=== PATIENT | female | born 1975 | race Caucasian/White ===

== ENCOUNTER 2024-06-24 12:37 | Emergency (ER) | payer OTHER ==
--- NOTE | 2024-06-24 14:26 | RAD REPORT ---
EXAM: Chest Single View HISTORY: CHEST PAIN COMPARISON: None. FINDINGS: LUNGS/PLEURA: The lungs are clear. No pleural effusions or pneumothorax. No pulmonary edema. MEDIASTINUM: The mediastinal silhouette is within normal limits. CARDIAC: The cardiac silhouette is within normal limits. UPPER ABDOMEN: Lucency underneath the right hemidiaphragm concerning for pneumoperitoneum. BONES: No acute abnormality. LINES/TUBES/OTHER: N/A IMPRESSION: No evidence of acute cardiopulmonary disease. Findings suspicious for pneumoperitoneum beneath right hemidiaphragm. Consider CT abdomen/pelvis for further evaluation. The patient reportedly had a hysterectomy one day prior and this may be post-surgical. THIS REPORT CONTAINS FINDINGS THAT MAY BE CRITICAL TO PATIENT CARE. The emergent findings were commun icated to Dr. Tate on 06/24/2024 2:23 PM.
[2024-06-24] MEDS ORDERED: DIAZEPAM 5 MG TABLET ONE (14:55)
[2024-06-24] MEDS ORDERED: NA CHLORIDE 0.9% 500 ML ONE ×2 (14:55→15:30)
[2024-06-24] MEDS ORDERED: ONDANSETRON 4 MG/2 ML VIAL ONE (14:55)
[2024-06-24] MEDS ORDERED: MORPHINE 4 MG/ML SYR ONE (14:55)
[2024-06-24 15:01] LABS: Absolute Basophils 0.1 K/uL (0-0.5); Absolute Lymphocytes (CBC) 1.9 K/uL (0.7-4.9); Absolute Monocytes 0.9 K/uL (0.1-1.3); Absolute Neutrophil 7.4 K/uL (1.8-8.0); Basophils % 0.7 % (0-1.3); Eosinophils % 0.3 % (0-4.4); Hematocrit 39.4 % (36.0-45.0); Hemoglobin 13.4 g/dL (12.0-15.0); Lymphocytes % 18.5 % (15.3-44.8); MCH 29.9 pg (27.0-35.0); MCHC 34.1 g/dL (32.0-36.0); MCV 87.6 fL (80-100); MPV 7.6 fL (7.6-11.3); Monocytes % 8.4 % (3.3-12.3); Neutrophils % 72.1 % (41.7-73.7); Platelets 265 thou/uL (152-406); RBC Red Blood Cell Count 4.49 M/uL (3.86-4.86); Red Cell Distribution Width 14.6 % (12.1-15.2)
[2024-06-24 15:20] LABS: Albumin 2.9 g/dL (3.4-5.0); Albumin/Globulin Ratio 0.7 (1.1-1.8); Anion Gap 7.9 mEq/L (5.0-15.0); Bilirubin Total 1.7 mg/dL (0.2-1.0); Globulin 3.9 g/dL (2.3-3.5); Potassium 3.9 mEq/L (3.5-5.1); Protein, Total 6.8 g/dL (6.4-8.2)
--- NOTE | 2024-06-24 15:53 | RAD REPORT ---
EXAMINATION: CTA CHEST PE CLINICAL INDICATION: Female, 48 years old. Chest pain;Dyspnea TECHNIQUE: This examination was performed according to an angiographic protocol with 3D post-processi ng. This involves 3D reconstructions, MIPs, volume rendered images and/or shaded surface rendering. One or more of the following dose reduction techniques were used: Automated exposure control, adjustm ent of the mA and/or kV according to patient size, and/or iterative reconstruction. Unless otherwise specified, incidental findings do not require dedicated imaging follow-up. [id number]. COMPARISON: No priors. FINDINGS: LOWER NECK: Visualized thyroid gland and soft tissues are normal. LUNGS AND AIRWAYS: Mild airspace disease in the lung bases probably representing atelectasis.Centrilo bular and paraseptal emphysema. PLEURA: No pleural effusion. No pneumothorax. Hemidiaphragms are normally positioned. MEDIASTINUM AND LYMPH NODES: No mediastinal mass or fluid collection. Normal size mediastinal, hilar, and axillary lymph nodes. THORACIC AORTA: No thoracic aortic aneurysm. PULMONARY ARTERIES: Caliber is within normal limits. No pulmonary emboli identified. HEART: Normal heart size. Coronary arterial calcifications are present.No significant pericardial eff usion. OSSEOUS STRUCTURES AND CHEST WALL: No fracture or suspicious osseous lesions. UPPER ABDOMEN: See separate report IMPRESSION: No evidence of pulmonary emboli. . Linear opacities in the lung bases likely reflecting atelectasis. Coronary calcifications in the LAD.
--- NOTE | 2024-06-24 15:58 | RAD REPORT ---
EXAMINATION: CT ABDOMEN AND PELVIS WITH CONTRAST CLINICAL INDICATION: Female, 48 years old.sp hyst 06/23/24;Abd pain TECHNIQUE: CT abdomen and pelvis was performed, after the administration of IV contrast, as per depar tment protocol. Axial, sagittal and coronal reconstructions were obtained. One or more of the following dose reduction techniques were used: Automated exposure control, adjustment of the mA and/o r kV according to patient size, and/or iterative reconstruction. Unless otherwise specified, incidental findings do not require dedicated imaging follow-up. [id number]. COMPARISON: No prior exam. FINDINGS: LOWER CHEST: See separate report. UPPER GI: No significant abnormality. LIVER: Hepatic steatosis, but otherwise unremarkable. GALLBLADDER/BILE DUCTS: Cholecystectomy. Intra and extra hepatic biliary duct dilatation may be relat ed to the postcholecystectomy state.? PANCREAS: No mass, ductal dilation, or aric-pancreatic fluid. SPLEEN: Unremarkable. ADRENALS: No adrenal masses. KIDNEYS AND URETERS: No hydronephrosis.No suspicious renal mass. ABDOMINAL AORTA AND OTHER VESSELS: Normal caliber aorta and IVC. PERITONEUM: Mild pelvic free fluid with some enhancement noted. No discrete abscess identified. Pneum operitoneum is present. LYMPH NODES: No pathologic lymphadenopathy. ABDOMINAL WALL: Gas within the abdominal wall likely post surgical. SMALL BOWEL/COLON: Nonspecific fluid present within the small bowel.Nonvisualized appendix. URINARY BLADDER: Underdistended but grossly unremarkable. REPRODUCTIVE ORGANS: Surgically absent uterus. MUSCULOSKELETAL: No acute or suspicious osseous abnormality. ADDITIONAL FINDINGS: None. IMPRESSION: Pneumoperitoneum and pelvic free fluid present. Some peritoneal enhancement is noted likely reflectin g mild peritonitis but no abscess identified at this time. Findings are not entirely unexpected given the patient's given clinical history of laparoscopic hysterectomy on the previous day.
[2024-06-24 16:37] LABS: Sqamous Epithelial <5 /HPF (None Seen); Urine Bacteria None Seen /HPF (<20); Urine Bilirubin NEGATIVE (Negative); Urine Blood Trace (Negative); Urine Clarity Clear (Clear); Urine Color Light-Yellow (Yellow); Urine Culture Reflex Order NOT NEEDED; Urine Glucose NEGATIVE (Negative); Urine Ketones NEGATIVE (Negative); Urine Microscopic Reflex YN ORDER UMIC; Urine Mucus Slight /HPF (None Seen); Urine Nitrite NEGATIVE (Negative); Urine Protein NEGATIVE (Negative); Urine RBC <5 /HPF (None Seen); Urine Urobilinogen Normal (Normal); Urine WBC <5 /HPF (<5); Urine Yeast (Budding) Trace /HPF (None Seen)
[2024-06-24 16:45] LABS: Specific Gravity > 1.030 (1.005-1.030)
--- NOTE | 2024-06-24 17:02 | ER ---
Nurse's Notes [facility] Name: Ariana Delatorre Age: 48 yrs Sex: Female : 1975 Arrival Date: 06/24/2024 Time: 12:37 Bed 13 Private MD: Diagnosis: Other acute postprocedural pain Presentation: 06/24 13:08 Chief complaint: Patient states: s/p hysterectomy yesterday, unable to get pain meds ss due to everything being closed. Pain to abd 03/13. Coronavirus screen: At this time, the client does not indicate any symptoms associated with coronavirus-19. Ebola Screen: No symptoms or risks identified at this time. Initial Sepsis Screen: Does the patient meet any 2 criteria? No. Patient's initial sepsis screen is negative. Does the patient have a suspected source of infection? No. Patient's initial sepsis screen is negative. Risk Assessment: Do you want to hurt yourself or someone else? Patient reports no desire to harm self or others. Onset of symptoms was June 23, 2024. 13:08 Method Of Arrival: Ambulatory ss 13:08 Acuity: DEA 3 ss Triage Assessment: 13:16 General: Appears uncomfortable, well groomed, well developed, well nourished, Behavior ss is calm, cooperative, appropriate for age. Pain: Complains of pain in abdomen Pain does not radiate. Pain currently is 10 out of 10 on a pain scale. Quality of pain is described as sharp, Pain began suddenly, Is continuous. EENT: No signs and/or symptoms were reported regarding the EENT system. Neuro: Level of Consciousness is awake, alert, obeys commands, Oriented to person, place, time, situation, Appropriate for age. Cardiovascular: Patient's skin is warm and dry. Respiratory: Airway is patent Respiratory effort is even, unlabored, Respiratory pattern is regular, symmetrical. GI: Reports lower abdominal pain, upper abdominal pain. : No signs and/or symptoms were reported regarding the genitourinary system. Derm: Skin is intact, is healthy with good turgor, Skin is pink, warm \T\ dry. Musculoskeletal: No deficits noted. 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 - Infectious Disease History:: Denies. - Social history:: Smoking status: Patient reports the use of cigarette tobacco products, denies chronic smoking, but will smoke occasionally, Reported history of juuling and/or vaping. - Family history:: not pertinent. Screenin:18 [facility] ED Fall Risk Assessment (Adult) History of falling in the last 3 months, ss including since admission No falls in past 3 months (0 pts) Confusion or Disorientation No (0 pts) Intoxicated or Sedated No (0 pts) Impaired Gait No (0 pts) Mobility Assist Device Used No (0 pt) Altered Elimination No (0 pt) Score/Fall Risk Level 0 - 2 = Low Risk Maintained a safe environment, Provided non-skid footwear, Hourly rounding (assess needs \T\ fall precautionary measures) done. Abuse screen: Denies threats or abuse. Nutritional screening: No deficits noted. Tuberculosis screening: No symptoms or risk factors identified. Assessment: 13:18 General: See triage assessment.. ss Vital Signs: 13:08 BP 126 / 79; Pulse 66; Resp 16; Temp 98.4; Pulse Ox 96% ; Weight 54.43 kg; Height 5 ft. ss 2 in. ; Pain 10/10; 14:00 BP 123 / 81; Pulse 72; Resp 16; Pulse Ox 99% ; ss 15:00 BP 126 / 87; Pulse 73; Resp 14; Pulse Ox 99% ; ss 16:00 BP 116 / 81; Pulse 73; Resp 6; Pulse Ox 98% ; ss 17:00 BP 113 / 77; Pulse 69; Resp 16; Temp 98.4; Pulse Ox 97% ; ss 13:08 Body Mass Index 21.95 (54.43 kg, 157.48 cm) ss 13:08 Pain Scale: Adult ED Course: 12:40 Patient arrived in ED. mr 12:41 Germain Tate MD is Attending Physician. driss 13:06 Maryann Hansen, CORNELIA is Primary Nurse. ss 13:11 Triage completed. ss 13:16 Arm band placed on Patient placed in an exam room. ss 13:18 Patient has correct armband on for positive identification. Bed in low position. Call ss light in reach. Side rails up X2. Provided Education on: POC. Verbalized understanding.. Client placed on continuous cardiac and pulse oximetry monitoring. NIBP monitoring applied. Pulse ox on. NIBP on. 13:18 No provider procedures requiring assistance completed. ss 14:15 Chest Single View XRAY In Process Unspecified. EDMS 14:37 Radiology exam delayed due to lab results not completed at this time. (BUN/Creatinine). nj 14:37 Radiology exam delayed due to IV insertion attempt and/or patient not having nj appropriate IV at this time. 14:53 Accessed peripheral vein via ultrasound, utilizing dynamic ultrasound technique Blood cm10 collected. Clean \T\ dry. Dressing intact. Good blood return. Flushes easily. 20G left FA. 15:41 CT Abd/Pelvis - IV Contrast Only In Process Unspecified. EDMS 15:42 CT Chest For PE Angio In Process Unspecified. EDMS 16:13 Urinalysis w/ reflexes Sent. ss 16:13 Urine collected: clean catch specimen, clear, Amount Voided: 250mL. ss 17:01 Sandra Montenegro MD is Referral Physician. driss 17:37 IV discontinued, intact, bleeding controlled, No redness/swelling at site. Pressure ss dressing applied. Administered Medications: 15:04 Drug: NS 0.9% IV 500 ml 500 ml IV at 1 bolus once; to be given as a bolus over 30 ss minutes Volume: 500 ml; Route: IV; Rate: 1 bolus; Site: left forearm; 15:32 Follow up: Response: No adverse reaction; IV Status: Completed infusion; IV Intake: ss 500ml 15:04 Drug: morphine IVP or IV 4 mg IVP once over 4 mins Route: IVP; Infused Over: 4 mins; Site: left forearm; 15:28 Follow up: Response: No adverse reaction; Pain is decreased ss 15:04 Drug: Ondansetron IVP 4 mg IVP once; over 2 minutes Route: IVP; Site: left forearm; ss 15:28 Follow up: Response: No adverse reaction; Nausea is decreased ss 15:04 Drug: Diazepam PO 10 mg PO once Route: PO; ss 15:33 Follow up: Response: No adverse reaction; Pain is decreased ss 15:32 Drug: NS 0.9% IV 500 ml 500 ml IV at 1 bolus once; to be given as a bolus over 30 ss minutes Volume: 500 ml; Route: IV; Rate: 1 bolus; Site: left forearm; 17:26 Follow up: Response: No adverse reaction; IV Status: Completed infusion; IV Intake: ss 500ml Medication: 13:18 VIS not applicable for this client. ss Intake: 15:32 IV: 500ml; Total: 500ml. ss 17:26 IV: 500ml; Total: 1000ml. ss Outcome: 17:01 Discharge ordered by . driss 17:37 Discharged to home ambulatory, 17:37 Condition: stable 17:37 Discharge instructions given to patient, significant other, Instructed on discharge instructions, follow up and referral plans. medication usage, Demonstrated understanding of instructions, follow-up care, medications, Prescriptions given X 1, 17:37 Patient left the ED. Signatures: Dispatcher [employer] EDMS Germain Tate MD MD cha Rivera, Mary, Reg Reg Maryann Hansen, RN RN ss Satya Armstrong Clarissa RN RN cm10
--- NOTE | 2024-06-24 17:02 | EDPHYS ---
Physician Documentation [facility] Name: Ariana Delatorre Age: 48 yrs Sex: Female : 1975 Arrival Date: 06/24/2024 Time: 12:37 Bed 13 Private MD: KEYANA Physician Germain Tate HPI: 06/24 13:49 This 48 yrs old Female presents to ER via Ambulatory with complaints of Post driss Surgical Pain. 13:49 The patient presents with abdominal pain in the upper abdomen, in the lower abdomen. driss Onset: The symptoms/episode began/occurred 2 day(s) ago. The patient presents with post op pain. Onset: The symptoms/episode began/occurred yesterday. Modifying factors: The symptoms are alleviated by nothing, the symptoms are aggravated by nothing. Associated signs and symptoms: The patient has no apparent associated signs or symptoms. Severity of symptoms: At their worst the symptoms were moderate, in the emergency department the symptoms are unchanged. had hyst yesterday , no pain meds. Onset: The symptoms/episode began/occurred yesterday. Severity of pain: At its worst the pain was moderate in the emergency department the pain is unchanged. 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 - Infectious Disease History:: Denies. - Social history:: Smoking status: Patient reports the use of cigarette tobacco products, denies chronic smoking, but will smoke occasionally, Reported history of juuling and/or vaping. - Family history:: not pertinent. ROS: 13:49 Constitutional: Negative for fever, chills, and weight loss, Eyes: Negative for injury, driss pain, redness, and discharge, ENT: Negative for injury, pain, and discharge, Neck: Negative for injury, pain, and swelling, Cardiovascular: Negative for chest pain, palpitations, and edema, Respiratory: Negative for shortness of breath, cough, wheezing, and pleuritic chest pain, Back: Negative for injury and pain, : Negative for injury, bleeding, discharge, and swelling, MS/Extremity: Negative for injury and deformity, Skin: Negative for injury, rash, and discoloration, Neuro: Negative for headache, weakness, numbness, tingling, and seizure, Psych: Negative for depression, anxiety, suicide ideation, homicidal ideation, and hallucinations, Allergy/Immunology: Negative for hives, rash, and allergies, Endocrine: Negative for neck swelling, polydipsia, polyuria, polyphagia, and marked weight changes, Hematologic/Lymphatic: Negative for swollen nodes, abnormal bleeding, and unusual bruising, 13:49 Abdomen/GI: Positive for abdominal pain, of the right lower quadrant and left lower quadrant, Exam: 13:49 Constitutional: This is a well developed, well nourished patient who is awake, alert, driss and in no acute distress. Head/Face: Normocephalic, atraumatic. Eyes: Pupils equal round and reactive to light, extra-ocular motions intact. Lids and lashes normal. Conjunctiva and sclera are non-icteric and not injected. Cornea within normal limits. Periorbital areas with no swelling, redness, or edema. ENT: Nares patent. No nasal discharge, no septal abnormalities noted. Tympanic membranes are normal and external auditory canals are clear. Oropharynx with no redness, swelling, or masses, exudates, or evidence of obstruction, uvula midline. Mucous membranes moist. Neck: Trachea midline, no thyromegaly or masses palpated, and no cervical lymphadenopathy. Supple, full range of motion without nuchal rigidity, or vertebral point tenderness. No Meningismus. Chest/axilla: Normal chest wall appearance and motion. Nontender with no deformity. No lesions are appreciated. Cardiovascular: Regular rate and rhythm with a normal S1 and S2. No gallops, murmurs, or rubs. Normal PMI, no JVD. No pulse deficits. Respiratory: Lungs have equal breath sounds bilaterally, clear to auscultation and percussion. No rales, rhonchi or wheezes noted. No increased work of breathing, no retractions or nasal flaring. Back: No spinal tenderness. No costovertebral tenderness. Full range of motion. Skin: Warm, dry with normal turgor. Normal color with no rashes, no lesions, and no evidence of cellulitis. MS/ Extremity: Pulses equal, no cyanosis. Neurovascular intact. Full, normal range of motion., bilateral aka Neuro: Awake and alert, GCS 15, oriented to person, place, time, and situation. Cranial nerves II-XII grossly intact. Motor strength 5/5 in all extremities. Sensory grossly intact. Cerebellar exam normal. Normal gait. Psych: Awake, alert, with orientation to person, place and time. Behavior, mood, and affect are within normal limits. 13:49 Abdomen/GI: Inspection: abdomen appears normal, Bowel sounds: normal, Palpation: moderate abdominal tenderness, in the right lower quadrant and left lower quadrant, Liver: no appreciated palpable abnormalities, Hernia: not appreciated, Vital Signs: 13:08 BP 126 / 79; Pulse 66; Resp 16; Temp 98.4; Pulse Ox 96% ; Weight 54.43 kg; Height 5 ft. ss 2 in. ; Pain 10/10; 14:00 BP 123 / 81; Pulse 72; Resp 16; Pulse Ox 99% ; ss 15:00 BP 126 / 87; Pulse 73; Resp 14; Pulse Ox 99% ; ss 16:00 BP 116 / 81; Pulse 73; Resp 6; Pulse Ox 98% ; ss 17:00 BP 113 / 77; Pulse 69; Resp 16; Temp 98.4; Pulse Ox 97% ; ss 13:08 Body Mass Index 21.95 (54.43 kg, 157.48 cm) ss 13:08 Pain Scale: Adult ss MDM: 12:41 Medical Screening Exam initiated driss 13:52 Differential Diagnosis sepsis. Data reviewed: vital signs, nurses notes, lab test [facility] result(s). Consideration of Admission/Observation Escalation of care including admission/observation considered. I considered the following discharge prescriptions or medication management in the emergency department Medications were administered in the Emergency Department. See MAR. Test considered but Not performed: CT: no ct scan. Historians other than the Patient: Spouse/Significant Other: well informed. Care significantly affected by the following chronic conditions: none. Counseling: I had a detailed discussion with the patient and/or guardian regarding the historical points, exam findings, and any diagnostic results supporting the discharge/admit diagnosis, lab results, radiology results, the need for outpatient follow up, for definitive care, an OB/Gyne specialist. 06/24 13:49 Order name: CBC with Diff; Complete Time: 15:16 [facility] 06/24 13:49 Order name: CMP; Complete Time: 17: [facility] 06/24 13:49 Order name: Urinalysis w/ reflexes; Complete Time: 17:01 [facility] 06/24 13:49 Order name: Chest Single View XRAY; Complete Time: 15:16 [facility] 06/24 14:24 Order name: CT Abd/Pelvis - IV Contrast Only; Complete Time: 17: [facility] 06/24 14:37 Order name: CT Chest For PE Angio; Complete Time: 17:01 [facility] Administered Medications: 15:04 Drug: NS 0.9% IV 500 ml 500 ml IV at 1 bolus once; to be given as a bolus over 30 ss minutes Volume: 500 ml; Route: IV; Rate: 1 bolus; Site: left forearm; 15:32 Follow up: Response: No adverse reaction; IV Status: Completed infusion; IV Intake: ss 500ml 15:04 Drug: morphine IVP or IV 4 mg IVP once over 4 mins Route: IVP; Infused Over: 4 mins; ss Site: left forearm; 15:28 Follow up: Response: No adverse reaction; Pain is decreased ss 15:04 Drug: Ondansetron IVP 4 mg IVP once; over 2 minutes Route: IVP; Site: left forearm; ss 15:28 Follow up: Response: No adverse reaction; Nausea is decreased ss 15:04 Drug: Diazepam PO 10 mg PO once Route: PO; ss 15:33 Follow up: Response: No adverse reaction; Pain is decreased ss 15:32 Drug: NS 0.9% IV 500 ml 500 ml IV at 1 bolus once; to be given as a bolus over 30 ss minutes Volume: 500 ml; Route: IV; Rate: 1 bolus; Site: left forearm; 17:26 Follow up: Response: No adverse reaction; IV Status: Completed infusion; IV Intake: ss 500ml Disposition Summary: 06/24/24 17:01 Discharge Ordered Notes: Location: Home driss Problem: new driss Symptoms: have improved driss Condition: Stable driss Diagnosis - Other acute postprocedural pain driss Followup: driss - With: Private Physician - When: Tomorrow - Reason: Recheck today's complaints, Continuance of care, Re-evaluation by your physician Followup: driss - With: Sandra Montenegro MD - When: Tomorrow - Reason: Recheck today's complaints, Continuance of care, Re-evaluation by your physician Discharge Instructions: - Discharge Summary Sheet driss - Pain Medicine Instructions, Cpth-me-Xudy driss Forms: - Medication Reconciliation Form driss - Antibiotic Education driss - Prescription Opioid Use driss - Patient Portal Instructions driss - Leadership Thank You Letter driss Prescriptions: - acetaminophen-codeine 300-30 mg Oral tablet - take 2 tablet ORAL route every 6 hours as needed for pain; 8 tablet; Refills: [facility] 0, Product Selection Permitted Signatures: Dispatcher [employer] EDMS Germain Tate MD MD cha Blanchard, Shelby, RN RN ss Corrections: (The following items were deleted from the chart) 13:49 13:49 Chest Single View+RAD.RAD.BRZ ordered. EDMS EDMS 13:49 13:49 IS+RC.RAD.BRZ ordered. EDMS EDMS
[2024-06-24 18:29] VITALS: TEMP 98.4
[2024-06-24 18:34] VITALS: BP 113/77; O2SAT 97
== END 2024-06-24 17:37 | disposition home or self-care (01) ==
LOC: ER 12:37
DX: G89.18 Other acute postprocedural pain (principal); F17.210 Nicotine dependence, cigarettes, uncomplicated; Z90.710 Acquired absence of both cervix and uterus
CPT/HCPCS: 96361; 85025; 81001; 36415; 80053; 71275; 74177; 71045; 96375; 96374; 99285; Q9967; J2405; J7040 ×2

== ENCOUNTER 2025-01-09 08:27 | Emergency (ER) | payer OTHER ==
--- OUTSIDE RECORDS SUMMARY | 2025-01-09 08:38 | XMS REPORT | Continuity of Care Document ---
Author Name Unknown Address [address] [facility] [place] [address] [facility] Address [address] [facility] [place] [address] Care Team Providers Care Emergency Medicine Specialist Name Role Phone AKIL MENDEZ Primary Care Physician Unavailab AKIL Marquez Attending Clinician Unavailable SERJIO ANDINO Attending Clinician Unavailable SERJIO ANDINO Attending Clinician Unavailable MD JASON Attending Clinician Unavailab KAYLAH Jason Attending Clinician Unavailable BEBE SOTELO Attending Clinician Unavailable GUSTABO APOADCA Attending Clinician Unavailable Doctor Unassigned, Moraida Attending Clinician U navailable RADHA FERNANDEZ Attending Clinician Unavailab YULY Ramires Attending Clinician Unav YULY Bustos Attending Clinician UnaTYREE Cerda Attending Clinician Unavailabl KVNG Locke Attending Clinician Unav ailable JAQUI NORRIS Attending Clinician Unavailable Jaqui Norris NP Attending Clinician Suma Rosario Attending Clinician Unavailab Saulo Reyes Attending Clinician Unavaila ble LAB90 Attending Clinician Unavailable Levon Hurley Attending Clinician Unavailable Yuly Saucedo MD Attending Clinician + Paresh Lyman Attending Clinician [phone] DANDRE JOHANSEN Attending Clinician Unavailable RADIOLOGY Attending Clinician Unavailable SAULO MONTENEGRO Attending Clinician Unavailcathy e PARESH CURIEL Attending Clinician Unavailable Sherri Hall RN Attending Clinician Unavailable Lab, Ang - Db Attending Clinician Unavailable ANA CRISTINA RAYMOND Attending Clinician Unavailable Ana Cristina Hoang Attending Clinician [phone] [phone], Patient Does Not Have A Attending Clinician JONA GRANADOS Attending Clinician Unavailable JONA GRANADOS Attending Clinician Unavailable Jona Miller Attending Clinician [phone] David Swanson Attending Clinician [phone] CAREN JOHNSTON Attending Clinician Unavailable CAREN JOHNSTON Attending Clinician Unavailable Caren Mulligan Attending Clinician [phone] ALIN WYATT Attending Clinician Unavailable Beba Crespo RN Attending Clinician [phone] Doctor Unassigned, Moraida Attending Clinician U roeailRICH Kim Attending Clinician Unavailable RICH MONTILLA Attending Clinician Unavailable LEE JETT Attending Clinician Unavailable Yesenia Ogden Attending Clinician [phone] YESENIA KENDRICK Attending Clinician Unavailable [email or web address] Attending Clinician Unavailsal Joy Attending Clinician Unavailable DR JOSE L REYNOLDS Attending Clinician Unava ilable YULY SAUCEDO Admitting Clinician Unav ailable JAQUI NORRIS Admitting Clinician Unavailable Akil Mendez Admitting Clinician Unavailable Saulo Montenegro Admitting Clinician Unavaila Levon Vaughn Admitting Clinician Unavailable JONA GRANADOS Admitting Clinician Unavailable CAREN JOHNSTON Admitting Clinician Unavailable SERJIO ANDINO Admitting Clinician Unavailable CAREN JOHNSTON Admitting Clinician Unavailable RICH MONTILLA Admitting Clinician Unavailable LEE JETT Admitting Clinician Unavailable [email or web address] Admitting Clinician Anna Joy Admitting Clinician DR JOSE L Chang Admitting Clinician Conchis pruett Payers Payer Name Policy Type Policy Number Effective Date Expirati on Date Source GOLD 3 ADVANCED 9 [id number] 2024 00:00:00 [employer] W/ ISABEL SEWELL OON [id number] 2024 00:00:00 [facility] WILLIAM COPAY FOCUS 9 [id number] 2023 00:00:00 [facility] [place] [facility] [id number] 2023 00:00:00 [facility] [id number] [id number] 00:00:00 [facility] [id number] Problems Condition Name Condition Details Condition Category Status Onset Date Resolution Date Last Treatment Date Treating Clinician Comments Source History of tobacco use History of tobacco use Disease Active - 00:00: 00 Isabel Seybold - Externa l Pain in both feet Pain in both feet Disease Active 12 00:00: 00 Isbael Seybold - Externa l Thrombocyt osis Thrombocyt osis Problem Active 5-07 00:00: 00 [facility] Menopausal symptom Menopausal Symptom Problem Active -07 00:00: 00 [facility] Atrophic vaginitis Atrophic Vaginitis Problem Active 5-07 00:00: 00 [facility] Other emphysema (multi HCC) Other emphysema (multi HCC) Disease Active -31 00:00: 00 Isabel Seybold - Externa l Hepatitis C Hepatitis C Disease Active 3-31 00:00: 00 Isabel Seybold - Externa l Pain in pelvis Pain in Pelvis Problem Active 2-14 00:00: 00 [facility] Postoperat quang abscess of female pelvis Postoperat quang Abscess of Female Pelvis Problem Active 2-11 00:00: 00 [facility] Nausea Nausea Problem Active 1-24 00:00: 00 [facility] Nicotine dependence Nicotine Dependence Problem Active 1-15 00:00: 00 [facility] Snoring Snoring Disease Active 2025-0 1-13 00:00: 00 Isabel duron Well adult exam Well adult exam Disease Active 1-13 00:00: 00 Isabel duron LLQ pain LLQ pain Disease Active 2023-06 2- 00:00: [address] [facility] Mastodynia of bilateral breasts Mastodynia of Bilateral Breasts Problem Active 2023-06 1- 00:00: 00 [facility] Menorrhagi a with regular cycle Menorrhagi a with regular cycle Disease Active 2023-06 00:00: 00 [facility] Preoperati ve clearance Preoperati ve clearance Disease Active 2023-06 00:00: [address] [facility] Smoker Smoker Disease Active 2023-06 00:00: 00 [facility] Hemorrhagi c cystitis Hemorrhagi c cystitis Disease Active 2023-06 00:00: 00 [facility] Radiology result abnormal Radiology Result Abnormal Problem Active 2023-06 0-31 00:00: 00 [facility] Mass of left breast Mass of Left Breast Problem Active 2023-06 0-31 00:00: 00 [facility] Cervical intraepith elial neoplasia grade 2 Cervical Intraepith elial Neoplasia Grade 2 Problem Active 2023-06 0-17 00:00: 00 [facility] Atypical glandular cells on cervical Papanicola ou smear Atypical Glandular Cells on Cervical Papanicola ou Smear Problem Active 8- 00:00: 00 [facility] Human papillomav irus deoxyribon ucleic acid detected, high risk on cervical specimen Human Papillomav irus Deoxyribon ucleic Acid Detected, High Risk on Cervical Specimen Problem Active 8- 00:00: 00 [facility] Cigarette smoker Cigarette Smoker Problem Active 8- 00:00: 00 [facility] Pelvic and perineal pain Pelvic and Perineal Pain Problem Active 8- 00:00: 00 [facility] Cyst of ovary Cyst of Ovary Problem Active 8-19 00:00: 00 [facility] Abnormal uterine bleeding Abnormal Uterine Bleeding Problem Active 8-19 00:00: 00 [facility] Heartburn Heartburn Problem Active 8- 00:00: 00 [facility] Abdominal bloating Abdominal Bloating Problem Active 8- 00:00: 00 [facility] Left lower quadrant pain Left Lower Quadrant Pain Problem Active 8 00:00: 00 [facility] Right ovarian cyst Right ovarian cyst Disease Active 1- 00:00: [address] [facility] Fibroids Fibroids Disease Active Kelse y Seybold - Externa l History of kidney stones History of kidney stones Disease Active Isabel Seybold - Externa l Left lower lobe pulmonary nodule Left lower lobe pulmonary nodule Disease Active Isabel Seybold - Externa l Insomnia Insomnia Disease Active Kelse y Seybold - Externa l Tobacco abuse Tobacco abuse Disease Active Isabel Seybold - Externa l Fatty liver Fatty liver Disease Active Isabel Seybold - Externa l Allergies, Adverse Reactions, Alerts Allergy Name Allergy Type Status Severity Reaction(s) Onset Date Inactive Date Treating Clinician Comments Source No Known Allergie s DA Active U 06-19 00:00: 00 [facility] NO KNOWN ALLERGIE S Drug Class Active [facility] Social History Social Habit Start Date Stop Date Quantity Comments Source ASSERTION Possible [facility] Sexual orientation Grant Sewell - External History of tobacco use Cigarette Smoker Isabel flores - External Alcoholic beverage intake 2024-12-23 00:00:00 2024-12-23 00:00:00 Ex-drinker (finding) Isabel Sewell - External Tobacco use and exposure 2024-10-13 00:00:00 2024-10-13 00:00:00 Smokeless tobacco non-user Isabel Sewell - External Cigarettes smoked current (pack per day) - Reported 2024-10-13 00:00:00 2024-10-13 00:00:00 Isabel Sewell - External Cigarette pack-years 2024-10-13 00:00:00 2024-10-13 00:00:00 Isabel Sewell - External Tobacco Comment 2024-10-03 00:00:00 2024-10-03 00:00:00 Pt. States she quit smoking 2 days ago. Isabel Sewell - External History of Social function 2024-06-16 00:00:00 2024-06-16 00:00:00 Isabel Sewell - [place] Education 2024-06-16 00:00:00 2024-06-16 00:00:00 14 Isabel Sewell - External Sex 2023-06-28 09:40:56 2023-06-28 09:40:56 Female (finding) Isabel Sewell - [place] Alcohol intake 2022-12-20 00:00:00 2022-12-20 00:00:00 Current drinker of alcohol (finding) [facility] Sex assigned at 1975 00:00:00 1975 00:00:00 Isabel Sewell - [place] Smoking Status Start Date Stop Date Source Ex-smoker 2024-10-13 00:00:00 2024-10-13 00:00:00 Isabel Sewell - External Occasional tobacco smoker 2024-10-03 00:00:00 Isabel Benjamin Smokes tobacco daily 2024-04-28 00:00:00 [facility] Medications Ordered Medication Name Filled Medication Name Start Date Stop Date Current Medication? Ordering Clinician Indication Dosage Frequency Signature (SIG) Comments Components Source dexamethaso ne sod phos PF injection 8 mg 01-04 16:45: 00 01-04 17:19 :00 No 8mg 8 mg, Intramuscu lar, ONCE, 1 dose, On 01/04/25 at 1145, [address] [facility] methylPREDN ISolone 4 mg tablets 01-04 00:00: 00 Yes [id number] Take by mouth SEE-INSTRU CTIONS. follow package directions [facility] cephALEXin 500 mg capsule 01-04 00:00: 00 Yes [id number] 500mg Take 1 capsule by mouth in the morning and 1 capsule at noon and 1 capsule in the evening. [facility] loratadine 10 mg tablet 01-04 00:00: 00 Yes [id number] 10mg Take 1 tablet by mouth in the morning. [facility] HYDROcodone -acetaminop hen 5-325 mg tablet 01-04 00:00: 00 01-12 04:59 :00 Yes [id number] 1{tbl} Take 1-2 tablets by mouth every 6 hours as needed for Pain (scale 4-6) for up to 7 days. [facility] Nicotine 21 MG/24HR transdermal PATCH 24 HR 12-23 13:51: 09 Yes 1{patch } Place 1 patch onto the skin in the morning. Isabel duron Diclofenac Sodium 75 MG oral Tablet Delayed Response 12-23 00:00: 00 Yes 75mg Q.5D Take 1 tablet (75 mg total) by mouth 2 times daily Take with food. Stop taking this medication if it upsets your stomach.. Isabel duron methylPREDN ISolone (Medrol) 4 MG oral Tablet Therapy Pack 12-23 00:00: 00 Yes 1{calista} Take 1 calista by mouth See Admin Instructio ns Use as directed.. Isabel duron Temazepam 15 MG oral Capsule 12-22 00:00: 00 Yes [id number] 15mg QD Take 1 capsule (15 mg total) by mouth nightly as needed for sleep. Isabel duron Nicotine 21 MG/24HR transdermal PATCH 24 HR 12-19 12:13: 24 Yes 1{patch } Place 1 patch onto the skin in the morning. Isabel duron Nicotine 21 MG/24HR transdermal PATCH 24 HR 12-18 08:12: 13 Yes 1{patch } Place 1 patch onto the skin in the morning. Isabel duron Gabapentin 400 MG oral Capsule 12-18 00:00: 00 Yes [id number] 400mg [id number] 3D Take 1 capsule (400 mg total) by mouth 3 times daily. Isabel duron Celecoxib (CeleBREX) 100 MG oral Capsule 12-18 00:00: 00 Yes [id number] 100mg Q.5D Take 1 capsule (100 mg total) by mouth 2 times daily as needed. Isabel Hernandeza l Nicotine 21 MG/24HR transdermal PATCH 24 HR 12-10 14:30: 03 Yes 1{patch } Place 1 patch onto the skin in the morning. Isabel duron Temazepam 15 MG oral Capsule 12-10 14:29: 48 12-10 00:00 :00 No 15mg QD Take 1 capsule (15 mg total) by mouth nightly as needed for sleep. Isabel duron Progesteron e 200 MG oral Capsule 12-06 00:00: 00 Yes 200mg QD 1 capsule (200 mg total) nightly. Isabel duron Pantoprazol e Sodium 40 MG oral Tablet Delayed Response 12-06 00:00: 00 Yes Isabel duron Gabapentin 300 MG oral Capsule 12-02 00:00: 00 12-18 00:00 :00 No Isabel duron Quetiapine Fumarate 50 MG oral Tablet 11-24 00:00: 00 Yes [id number] 50mg QD TAKE 1 TABLET BY MOUTH ONCE NIGHTLY Isabel duron Ondansetron (ZOFRAN) 8 MG oral TABLET DISPERSIBLE 11-17 00:00: 00 12-22 00:00 :00 No Isabel duron maalox/diph enhydrAMINE :lidocaine2 %viscous 1:1:1: suspension (COMPOUNDED ) 10-24 05:00: 00 10-24 05:05 :00 No 15mL 15 mL, Oral, ONCE, 1 dose, On Sun10/24/24 at 0000, Routine [facility] cefTRIAXone (ROCEPHIN) 1,000 mg in sterile water for injection 10 mL IV Push 10-24 04:00: 00 10-24 04:12 :00 No 1000mg 1,000 mg, Intravenou s, ONCE, 1 dose, On Breanna 10/23/24 at 2300, 10 mL, Reason for Anti-Infec tive: Documented Infection, Documented Infection Site: Urine, Duration of therapy: Once (ED) [facility] ondansetron (ZOFRAN (PF)) injection 4 mg 10-24 04:00: 00 10-24 04:14 :00 No 4mg 4 mg, Slow IV Push, ONCE, 1 dose, On Breanna 10/23/24 at 2300, Administer over 2-5 Minutes, [address] [facility] morpHINE (4 mg/mL) injection 4 mg 10-24 04:00: 00 10-24 04:12 :00 No 4mg 4 mg, Slow IV Push, ONCE, 1 dose, On [facility] 10/23/24 at 2300, STAT [facility] iopamidol (ISOVUE 370-500 mL) injection 83 mL 10-24 02:20: 00 10-24 02:30 :00 No [id number] 83mL 83 mL, Intravenou s, ONCE, 1 dose, On [facility] 10/23/24 at 2130, Routine [facility] cefdinir 300 mg capsule 10-23 00:00: 00 11-03 04:59 :00 Yes [id number] 300mg Take 1 capsule by mouth in the morning and 1 capsule in the evening. Do all this for [address] [facility] Temazepam 15 MG oral Capsule 10-20 13:21: 28 Yes 15mg QD Take 1 capsule (15 mg total) by mouth nightly as needed for sleep. Isabel duron Nicotine 21 MG/24HR transdermal PATCH 24 HR 10-20 13:21: 28 Yes 1{patch } Place 1 patch onto the skin in the morning. Isabel duron Diclofenac Sodium 75 MG oral Tablet Delayed Response 10-20 00:00: 00 12-18 00:00 :00 No [id number] 75mg Q.5D Take 1 tablet (75 mg total) by mouth 2 times daily. Isabel duron Gabapentin 100 MG oral Capsule 10-20 00:00: 00 12-10 00:00 :00 No [id number] 9103 TAKE 1 CAPSULE BY MOUTH 2 TIMES A DAY NEEDED FOR PAIN Isabel duron Capsaicin 0.1 % apply externally Cream 10-20 00:00: 12-10 00:00 :00 No [id number] 1{appli cation} Q.[id number] 3D Apply 1 Applicatio n topically 3 times daily. Isabel duron Nicotine 21 MG/24HR transdermal PATCH 24 HR 10-13 11:01: 55 Yes 1{patch } Place 1 patch onto the skin in the morning. Isabel duron Temazepam 15 MG oral Capsule 10-13 10:28: 56 Yes 15mg QD Take 1 capsule (15 mg total) by mouth nightly as needed for sleep. Isabel duron Lyllana 0.1 MG/24HR transdermal PATCH BIWEEKLY 10-08 00:00: 00 Yes Isabel duron Melatonin 10 MG oral Tablet 10-03 10:09: 33 10-03 00:00 :00 No 5{capsu le} QD Take 5 capsules by mouth nightly. Isabel duron Temazepam 15 MG oral Capsule 10-03 09:49: 08 Yes 15mg QD Take 1 capsule (15 mg total) by mouth nightly as needed for sleep. Isabel duron Albuterol HFA 108 (90 Base) MCG/ACT IN AERS 10-03 00:00: 00 Yes [id number] 2{puff} Q.25D Inhale 2 puffs into the lungs every 6 hours as needed for wheezing or shortness of breath. Isabel duron Albuterol HFA 108 (90 Base) MCG/ACT IN AERS 09-29 09:45: 44 09-29 00:00 :00 No 2{puff} Q.25D Inhale 2 puffs into the lungs every 6 hours as needed for wheezing or shortness of breath. Isabel duron Meloxicam (Mobic) 15 MG oral Tablet 09-29 00:00: 00 12-10 00:00 :00 No [id number] 15mg QD Take 1 tablet (15 mg total) by mouth daily Take with Meals, STOP IF UPSET STOMACH. Isabel duron methylPREDN ISolone (Medrol) 4 MG oral Tablet Therapy Pack 09-29 00:00: 00 10-06 04:59 :00 No [id number] 1{calista} Take 1 calista by mouth See Admin Instructio ns for 6 days Use as directed.. Isabel duron HYDROcodone -acetaminop hen (NORCO 5) tablet 1 tablet 09-06 15:00: 00 09-06 14:58 :00 No 1{tbl} 1 tablet, Oral, ONCE, 1 dose, On 09/06/24 at 1000, [facility] ibuprofen 800 mg tablet 09-06 00:00: 00 Yes [id number] 800mg Take 1 tablet by mouth every 6 (six) hours as needed for Pain (scale 4-6). [facility] Albuterol HFA 108 (90 Base) MCG/ACT IN AERS 09-01 11:19: 15 Yes 2{puff} Q.25D Inhale 2 puffs into the lungs every 6 hours as needed for wheezing or shortness of breath. Isabel duron Quetiapine Fumarate 50 MG oral Tablet 09-01 00:00: 00 Yes [id number] 50mg QD Take 1 tablet (50 mg total) by mouth nightly. Isabel duron Meloxicam (Mobic) 15 MG oral Tablet 08-18 00:00: 00 Yes [id number] 15mg QD Take 1 tablet (15 mg total) by mouth daily Take with Meals, STOP IF UPSET STOMACH. Isabel duron Trazodone HCl 100 MG oral Tablet 08-05 00:00: 00 09-01 00:00 :00 No [id number] 100mg QD Take 1 tablet (100 mg total) by mouth nightly as needed for sleep. Isabel duron Gabapentin 100 MG oral Capsule 17 00:00: 00 Yes [id number] 9103 100mg Q.5D Take 1 capsule (100 mg total) by mouth 2 times daily as needed (pain). Isabel Muñozkarishma duron Naproxen 500 MG oral Tablet 2-17 00:00: 00 09-01 00:00 :00 No 500mg Q.5D Take 1 tablet (500 mg total) by mouth 2 times daily as needed (pain). Isabel Melodie duron piperacilli n-tazobacta m (ZOSYN) 3.375 g in NaCl 0.9% (NS) 100 mL MINI-BAG 06-29 23:45: 00 06-30 00:38 :00 No 3.375g 3.375 g, IV Piggyback, ONCE, 1 dose, On Sun06/29/24 at 1745, Administer over 30 Minutes, 100 mL, Reason for Anti-Infec tive: Documented Infection, Documented Infection Site: Abdominal, Duration of Therapy: Once (ED) [facility] morpHINE (4 mg/mL) injection 4 mg 06-29 23:00: 00 06-29 23:10 :00 No 4mg 4 mg, Slow IV Push, ONCE, 1 dose, On Sun06/29/24 at 1700, STAT [facility] iopamidol (ISOVUE 370-500 mL) injection 85 mL 06-29 22:45: 00 06-29 22:45 :00 No [id number] 85mL 85 mL, Intravenou s, ONCE, 1 dose, On Sun06/29/24 at 1645, Routine [facility] ondansetron (ZOFRAN (PF)) injection 4 mg 06-29 20:30: 00 06-29 20:50 :00 No 4mg 4 mg, Slow IV Push, ONCE, 1 dose, On Sun06/29/24 at 1430, Administer over 2-5 Minutes, [address] [facility] morpHINE (4 mg/mL) injection 4 mg 06-29 20:30: 00 06-29 20:48 :00 No 4mg 4 mg, Slow IV Push, ONCE, 1 dose, On Sun06/29/24 at 1430, STAT [facility] Quetiapine Fumarate 25 MG oral Tablet -16 00:00: 00 09-01 00:00 :00 No 25mg Take 1 tablet (25 mg total) by mouth. Isabel duron Trazodone HCl 50 MG oral Tablet 06-16 00:00: 00 Yes [id number] 50mg QD Take 1 tablet (50 mg total) by mouth nightly as needed for sleep. Isabel duron Celecoxib (CeleBREX) 200 MG oral Capsule 06-16 00:00: 00 07-21 00:00 :00 No [id number] 200mg Q.5D Take 1 capsule (200 mg total) by mouth 2 times daily as needed for pain. Isabel duron cephALEXin 500 mg capsule 2023-06 00:00: 00 01-04 00:00 :00 No [id number] 500mg Take 1 capsule by mouth in the morning and 1 capsule in the evening. [facility] sulfamethox azole-trime thoprim (BACTRIM DS) 800-160 mg per tablet 2023-06 00:00: 00 04-30 00:00 :00 No [id number] 1{tbl} Take 1 tablet by mouth in the morning and 1 tablet in the evening. Do all this for [address] [facility] gabapentin 300 mg capsule 2023-06 00:00: 00 Yes 300mg Take 1 capsule by mouth in the morning and 1 capsule at noon and 1 capsule in the evening. [facility] ondansetron (ZOFRAN-ODT ) disintegrat ing tablet 4 mg 2023-06 23:30: 00 04-02 23:19 :00 No 4mg 4 mg, Oral, ONCE, 1 dose, On Sun04/02/24 at 1830, Routine [facility] ketorolac (TORADOL) injection 15 mg 2023-06 23:30: 00 04-02 23:19 :00 No 15mg 15 mg, Intramuscu lar, ONCE, 1 dose, On Sun04/02/24 at 1830, Routine [facility] ondansetron 4 mg disintegrat ing tablet 2023-06 00:00: 00 Yes [id number] 4mg Take 1 tablet by mouth every 8 (eight) hours as needed for Nausea and Vomiting (N/V). [facility] QUEtiapine 25 mg tablet 2023-06 00:00: [address] [facility] HYDROcodone -acetaminop hen (NORCO 5) tablet 1 tablet 2023-06 03:30: 00 03-26 03:34 :00 No 1{tbl} 1 tablet, Oral, ONCE, 1 dose, On Sun03/25/24 at 2230, [facility] iopamidol (ISOVUE 370-500 mL) injection 83 mL 2023-06 02:15: 00 03-26 02:15 :00 No [id number] 83mL 83 mL, Intravenou s, ONCE, 1 dose, On Sun03/25/24 at 2115, Routine [facility] ketorolac (TORADOL) injection 15 mg 2023-06 01:30: 00 03-26 00:50 :00 No 15mg 15 mg, Slow IV Push, ONCE, 1 dose, On Sun03/25/24 at 2030, Routine [facility] traMADoL (ULTRAM) tablet 50 mg 2023-06 01:00: 00 03-26 00:42 :00 No 50mg 50 mg, Oral, ONCE NOW, 1 dose, On Sun03/25/24 at 2000, [facility] traMADoL 50 mg tablet 2023-06 00:00: 00 04-02 04:59 :00 No [id number] 50mg Take 1 tablet by mouth every 8 (eight) hours as needed for Pain (scale 7-10) for up to 7 days. Indication s: acute pain [facility] diazePAM 10 mg tablet 2023-06 016 00:00: 00 Yes Take by mouth. [facility] ketorolac (TORADOL) injection 30 mg 01-18 03:00: 00 01-18 03:09 :00 No 30mg 30 mg, Slow IV Push, ONCE, 1 dose, On Sun01/18/24 at 2200, [facility] iopamidol (ISOVUE 370-500 mL) injection 60 mL 01-18 02:45: 00 01-18 02:45 :00 No [id number] 60mL 60 mL, Intravenou s, ONCE, 1 dose, On Sun01/18/24 at 2145, Routine [facility] NaCl 0.9% (NS) IV infusion 1,000 mL 01-18 00:30: 00 01-18 03:16 :00 No 1000mL at 999 mL/hr, Intravenou s, ONCE, 1 dose, On Sun01/18/24 at 1930, [facility] ondansetron (ZOFRAN (PF)) injection 4 mg 01-17 23:30: 00 01-18 02:34 :00 No 4mg 4 mg, Slow IV Push, ONCE, 1 dose, On Sun01/18/24 at 1830, [facility] fentanyl PF (SUBLIMAZE (PF)) injection 50 mcg 01-17 23:20: 00 01-18 02:34 :00 No 50ug 50 mcg, Slow IV Push, ONCE, 1 dose, On Sun01/18/24 at 1830, [facility] sodium chloride (NS) injection 5 mL 01-17 22:28: 58 Yes 5mL 5 mL, Intravenou s, PRN, Starting on Sun01/18/24 at 1728, Until Discontinu ed, Routine, IV line flushing [facility] naproxen (NAPROSYN) 500 mg tablet 01-17 00:00: 00 Yes [id number] 500mg Take 1 tablet by mouth 2 (two) times daily with meals as needed for Alternate with [place] for pain scale 1-3. [facility] traMADoL 50 mg tablet 01-17 00:00: 00 01-25 04:59 :00 No [id number] 50mg Take 1 tablet by mouth every 8 (eight) hours as needed for Pain (scale 7-10) for up to 7 days. Indication s: acute pain [facility] ketorolac (TORADOL) injection 15 mg 12-17 17:00: 00 12-17 16:21 :00 No 15mg 15 mg, Slow IV Push, ONCE, 1 dose, On Sun12/18/23 at 1200, [facility] naproxen 500 mg tablet 12-17 00:00: 00 12-28 04:59 :00 No [id number] 500mg Take 1 tablet by mouth in the morning and 1 tablet in the evening. Take with meals. Do all this for [address] [facility] HYDROcodone -acetaminop hen 5-325 mg tablet 12-17 00:00: 00 12-25 04:59 :00 No [id number] 1{tbl} Take 1-2 tablets by mouth every 6 (six) hours as needed for Pain (scale 4-6) for up to 7 days. Indication s: acute pain [facility] acetaminoph en (TYLENOL) tablet 650 mg 09-28 03:45: 00 09-28 03:39 :00 No 650mg 650 mg, Oral, ONCE, 1 dose, On Sun09/28/23 at 2245, [facility] ibuprofen (IBU) tablet 600 mg 09-28 01:30: 00 09-28 01:31 :00 No 600mg 600 mg, Oral, ONCE, 1 dose, On Sun09/28/23 at 2030, [facility] ondansetron (ZOFRAN (PF)) injection 4 mg 08-03 02:15: 00 08-03 06:15 :00 No 4mg 4 mg, Slow IV Push, ONCE, 1 dose, On Sun08/03/23 at 2015, [facility] famotidine (PEPCID (PF)) injection 20 mg 08-03 02:15: 00 08-03 06:14 :00 No 20mg 20 mg, Slow IV Push, ONCE, 1 dose, On Sun08/03/23 at 2015, [facility] acetaminoph en (TYLENOL) tablet 1,000 mg 08-03 02:15: 00 08-03 06:13 :00 No 1000mg 1,000 mg, Oral, ONCE, 1 dose, On Sun08/03/23 at 2015, [facility] maalox:diph enhydrAMINE :lidocaine 2 % viscous 1:1:1 (FIRST-MOUT HWASH BLM) oral suspension 15 mL 08-03 02:15: 00 08-03 06:14 :00 No 15mL 15 mL, Oral, ONCE, 1 dose, On Sun08/03/23 at 2015, Routine [facility] ondansetron 4 mg disintegrat ing tablet 08-03 00:00: 00 Yes [id number] 4mg Take 1 tablet by mouth every 8 (eight) hours as needed for Nausea and Vomiting (N/V). [facility] famotidine (PEPCID) 20 mg tablet 08-03 00:00: 00 09-03 04:59 :00 No [id number] 20mg Take 1 tablet by mouth in the morning and 1 tablet in the evening. Do all this for [address] [facility] iopamidol (ISOVUE 370-500 mL) injection 100 mL 06-28 07:45: 00 06-28 07:45 :00 No [id number] 100mL 100 mL, Intravenou s, ONCE, 1 dose, On Sun06/28/23 at 0145, Routine [facility] ketorolac (TORADOL) injection 30 mg 06-28 07:00: 00 06-28 06:32 :00 No 30mg 30 mg, Slow IV Push, ONCE, 1 dose, On Sun06/28/23 at 0100, [facility] NaCl 0.9% (NS) bolus infusion 1,000 mL 06-28 07:00: 00 06-28 07:47 :00 No 1000mL at 999 mL/hr, 1,000 mL, IV Infusion, ONCE, 1 dose, On Breanna 06/28/23 at 0100, [facility] ketorolac 10 mg tablet 06-28 00:00: 00 Yes [id number] 10mg Take 1 tablet by mouth every 6 (six) hours as needed for Pain (scale 7-10). [facility] ketorolac (TORADOL) injection 15 mg 06-21 01:45: 00 06-21 01:04 :00 No 15mg 15 mg, Slow IV Push, ONCE, 1 dose, On Sun06/20/23 at 1945, Routine [facility] ibuprofen 800 mg tablet 06-20 00:00: 00 09-06 00:00 :00 No [id number] 800mg Take 1 tablet by mouth every 8 (eight) hours as needed for Pain (scale 1-3). [facility] trazodone HCl (TRAZODONE ORAL) 12-20 22:34: 38 Yes Take by mouth. [facility] Nitrofurant oin&Nit. Macrocryst (MACROBID) 100 mg capsule 12-18 00:00: 00 04-28 00:00 :00 No 100mg Take 1 capsule by mouth in the morning and 1 capsule in the evening. [facility] quetiapine quetiapine No quetiapine [facility] estradiol 0.01% (0.1 mg/gram) vaginal cream Insert 0.5 g 3 times a week by vaginal route for 30 days. estradiol 0.01% (0.1 mg/gram) vaginal cream Insert 0.5 g 3 times a week by vaginal route for 30 days. No .5g Q56H estradiol 0.01% (0.1 mg/gram) vaginal cream Insert 0.5 g 3 times a week by vaginal route for 30 days. [facility] cephalexin 500 mg capsule Take 1 capsule every 6 hours by oral route for 5 days. cephalexin 500 mg capsule Take 1 capsule every 6 hours by oral route for 5 days. No 1capsul e(s) Q6H cephalexin 500 mg capsule Take 1 capsule every 6 hours by oral route for 5 days. [facility] estradiol 0.05 mg/24 hr semiweekly transdermal patch Apply 1 patch twice a week by transdermal route for 84 days. estradiol 0.05 mg/24 hr semiweekly transdermal patch Apply 1 patch twice a week by transdermal route for 84 days. No 1patch( es) Q3.5D estradiol 0.05 mg/24 hr semiweekly transderma l patch Apply 1 patch twice a week by transderma l route for 84 days. [facility] estradiol 0.1 mg/24 hr semiweekly transdermal patch Apply 1 patch twice a week by transdermal route for 90 days. estradiol 0.1 mg/24 hr semiweekly transdermal patch Apply 1 patch twice a week by transdermal route for 90 days. No 1patch( es) Q3.5D estradiol 0.1 mg/24 hr semiweekly transderma l patch Apply 1 patch twice a week by transderma l route for 90 days. [facility] progesteron e micronized 200 mg capsule Take 1 capsule every day by oral route at bedtime for 90 days. progesteron e micronized 200 mg capsule Take 1 capsule every day by oral route at bedtime for 90 days. No 1capsul e(s) Q1D progestero ne micronized 200 mg capsule Take 1 capsule every day by oral route at bedtime for 90 days. [facility] Immunizations Ordered Immunization Name Filled Immunization Name Date Status Comments Source TD, NOS 2015-04-09 00:00:00 Completed [facility] TD, NOS Unknown Completed [facility] TD, NOS Unknown Completed [facility] TD, NOS Unknown Completed [facility] TD, NOS Unknown Completed [facility] TD, NOS Unknown Completed [facility] TD, NOS Unknown Completed [facility] TD, NOS Unknown Completed [facility] TD, NOS Unknown Completed [facility] TD, NOS Unknown Completed [facility] Td(adult) unspecified formulation Unknown Completed Isabel Seybold - External Td(adult) unspecified formulation Unknown Completed Isabel Seybold - External Td(adult) unspecified formulation Unknown Completed Isabel Seybold - External Td(adult) unspecified formulation Unknown Completed Isabel Seybold - External Td(adult) unspecified formulation Unknown Completed Isabel Seybold - External Td(adult) unspecified formulation Unknown Completed Isabel Seybold - External Td(adult) unspecified formulation Unknown Completed Isabel Seybold - External Tdap- (Boostrix, Adacel) Unknown Completed Isabel Seybold - External Shingles IM (Shingrix) Unknown Completed Isabel Seybold - External Td(adult) unspecified formulation Unknown Completed Isabel Seybold - External Tdap- (Boostrix, Adacel) Unknown Completed Isabel Seybold - External Shingles IM (Shingrix) Unknown Completed Isabel Seybold - External Td(adult) unspecified formulation Unknown Completed Isabel Seybold - External Tdap- (Boostrix, Adacel) Unknown Completed Isabel Seybold - External Shingles IM (Shingrix) Unknown Completed Isabel Seybold - External Td(adult) unspecified formulation Unknown Completed Isabel Seybold - External Tdap- (Boostrix, Adacel) Unknown Completed Isabel Seybold - External Shingles IM (Shingrix) Unknown Completed Isabel Seybold - External Td(adult) unspecified formulation Unknown Completed Isabel Seybold - External Td(adult) unspecified formulation Unknown Completed Isabel Seybold - External Vital Signs Vital Name Observation Time Observation Value Comments S ource Systolic blood pressure 2025-01-04 17:24:16 130 mm[Hg] [facility] Diastolic blood pressure 2025-01-04 17:24:16 73 mm[Hg] [facility] Heart rate 2025-01-04 17:24:16 65 /min [facility] Body temperature 2025-01-04 17:24:16 36.67 Anjelica [facility] Respiratory rate 2025-01-04 17:24:16 16 /min [facility] Oxygen saturation in Arterial blood by Pulse oximetry 2025-01-04 17:24:16 99 /min [facility] Body height 2025-01-04 16:17:00 157.5 cm [facility] Body weight 2025-01-04 16:17:00 54.432 kg [facility] BMI 2025-01-04 16:17:00 21.95 kg/m2 [facility] Systolic blood pressure 2024-12-23 18:48:00 119 mm[Hg] Isabel Seybo ld - External Diastolic blood pressure 2024-12-23 18:48:00 82 mm[Hg] Isabel Seybo ld - External Heart rate 2024-12-23 18:48:00 91 /min Kelse y Seybold - External Respiratory rate 2024-12-23 18:48:00 18 /min Isabel Seybold - External Body height 2024-12-23 18:48:00 157.5 cm Adriane ey Seybold - External Body weight 2024-12-23 18:48:00 56.7 kg Adriane ey Seybold - External BMI 2024-12-23 18:48:00 22.86 kg/m2 Adriane ey Seybold - External Systolic blood pressure 2024-12-18 13:07:00 110 mm[Hg] Isabel Seybo ld - External Diastolic blood pressure 2024-12-18 13:07:00 78 mm[Hg] Isabel Seybo ld - External Heart rate 2024-12-18 13:07:00 78 /min Tejase y Seybold - External Body temperature 2024-12-18 13:07:00 36.67 Anjelica Isabel Seybold - External Respiratory rate 2024-12-18 13:07:00 20 /min Isabel Seybold - External Body height 2024-12-18 13:07:00 157.5 cm Adriane ey Seybold - External Body weight 2024-12-18 13:07:00 58.333 kg Adriane ey Seybold - External BMI 2024-12-18 13:07:00 23.52 kg/m2 Adriane ey Seybold - External Oxygen saturation in Arterial blood by Pulse oximetry 2024-12-18 13:07:00 97 /min Isabel Seybo ld - External Systolic blood pressure 2024-12-10 19:25:00 122 mm[Hg] Isabel Seybo ld - External Diastolic blood pressure 2024-12-10 19:25:00 76 mm[Hg] Isabel Seybo ld - External Heart rate 2024-12-10 19:25:00 74 /min Kelse y Seybold - External Body temperature 2024-12-10 19:25:00 36.61 Anjelica Isabel Seybold - External Respiratory rate 2024-12-10 19:25:00 18 /min Isabel Seybold - External Body height 2024-12-10 19:25:00 157.5 cm Adriane ey Seybold - External Body weight 2024-12-10 19:25:00 56.416 kg Adriane ey Seybold - External BMI 2024-12-10 19:25:00 22.75 kg/m2 Adriane ey Seybold - External Oxygen saturation in Arterial blood by Pulse oximetry 2024-12-10 19:25:00 98 /min Isabel Muñozybo ld - External Systolic blood pressure 2024-10-24 05:00:00 128 mm[Hg] [facility] Diastolic blood pressure 2024-10-24 05:00:00 87 mm[Hg] [facility] Heart rate 2024-10-24 05:00:00 64 /min [facility] Body temperature 2024-10-24 05:00:00 36.5 Anjelica [facility] Respiratory rate 2024-10-24 05:00:00 12 /min [facility] Oxygen saturation in Arterial blood by Pulse oximetry 2024-10-24 05:00:00 97 /min [facility] Body height 2024-10-24 01:11:00 157.5 cm [facility] Body weight 2024-10-24 01:11:00 53.978 kg [facility] BMI 2024-10-24 01:11:00 21.77 kg/m2 [facility] Body height 2024-10-20 18:20:00 157.5 cm Adriane ey Seybold - External Body weight 2024-10-20 18:20:00 53.524 kg Adriane ey Seybold - External BMI 2024-10-20 18:20:00 21.58 kg/m2 Adriane ey Seybold - External Systolic blood pressure 2024-10-13 15:25:00 114 mm[Hg] Isabel ybo ld - External Diastolic blood pressure 2024-10-13 15:25:00 76 mm[Hg] Isabel Muñozybo ld - External Heart rate 2024-10-13 15:25:00 91 /min Kelse y Seybold - External Body temperature 2024-10-13 15:25:00 36.28 Anjelica Isabel Seybold - External Respiratory rate 2024-10-13 15:25:00 16 /min Isabel Seybold - External Body height 2024-10-13 15:25:00 157.5 cm Adriane ey Seybold - External Body weight 2024-10-13 15:25:00 53.615 kg Adriane ey Seybold - External BMI 2024-10-13 15:25:00 21.62 kg/m2 Adriane ey Seybold - External Oxygen saturation in Arterial blood by Pulse oximetry 2024-10-13 15:25:00 98 /min Isabel Seybo ld - External BMI (Body Mass Index) 2024-10-08 00:00:00 21.8 kg/m2 [facility] BP Systolic 2024-10-08 00:00:00 128 mm[Hg] [facility] Height 2024-10-08 00:00:00 62 [in_i] [facility] Body Weight 2024-10-08 00:00:00 119.4 [lb_av] [facility] BP Diastolic 2024-10-08 00:00:00 64 mm[Hg] [facility] Systolic blood pressure 2024-10-03 14:44:00 119 mm[Hg] Isabel Seybo ld - External Diastolic blood pressure 2024-10-03 14:44:00 84 mm[Hg] Isabel Seybo ld - External Heart rate 2024-10-03 14:44:00 76 /min Kelse y Seybold - External Body temperature 2024-10-03 14:44:00 36.61 Anjelica Isabel Seybold - External Respiratory rate 2024-10-03 14:44:00 16 /min Isabel Seybold - External Body height 2024-10-03 14:44:00 157.5 cm Adriane ey Seybold - External Body weight 2024-10-03 14:44:00 51.256 kg Adriane ey Seybold - External BMI 2024-10-03 14:44:00 20.67 kg/m2 Adriane ey Seybold - External Oxygen saturation in Arterial blood by Pulse oximetry 2024-10-03 14:44:00 95 /min Isabel Tomlinsono ld - External Body height 2024-09-29 14:44:00 157.5 cm Adriane ey Seybold - External Body weight 2024-09-29 14:44:00 52.164 kg Adriane ey Seybold - External BMI 2024-09-29 14:44:00 21.03 kg/m2 Adriane ey Seybold - External BP Diastolic 2024-09-10 00:00:00 71 mm[Hg] [facility] Body Weight 2024-09-10 00:00:00 119.4 [lb_av] [facility] Height 2024-09-10 00:00:00 62 [in_i] [facility] BP Systolic 2024-09-10 00:00:00 105 mm[Hg] [facility] BMI (Body Mass Index) 2024-09-10 00:00:00 21.8 kg/m2 [facility] Systolic blood pressure 2024-09-06 14:17:00 107 mm[Hg] [facility] Diastolic blood pressure 2024-09-06 14:17:00 83 mm[Hg] [facility] Heart rate 2024-09-06 14:17:00 72 /min [facility] Body temperature 2024-09-06 14:17:00 36.94 Anjelica [facility] Respiratory rate 2024-09-06 14:17:00 16 /min [facility] Body height 2024-09-06 14:17:00 157.5 cm [facility] Body weight 2024-09-06 14:17:00 52.164 kg [facility] BMI 2024-09-06 14:17:00 21.03 kg/m2 [facility] Oxygen saturation in Arterial blood by Pulse oximetry 2024-09-06 14:17:00 97 /min [facility] Systolic blood pressure 2024-09-01 16:01:00 112 mm[Hg] Isabel Tomlinsono ld - External Diastolic blood pressure 2024-09-01 16:01:00 64 mm[Hg] Isabel Muñozybo ld - External Heart rate 2024-09-01 16:01:00 82 /min Kel y Seybold - External Body temperature 2024-09-01 16:01:00 36.83 Anjelica Isabel Muñozybold - External Respiratory rate 2024-09-01 16:01:00 16 /min Isabel Muñozybold - External Body height 2024-09-01 16:01:00 157.5 cm Adriane sarmiento Seybold - External Body weight 2024-09-01 16:01:00 52.436 kg Adriane ey Seybold - External BMI 2024-09-01 16:01:00 21.14 kg/m2 Adriane sarmiento Seybold - External Oxygen saturation in Arterial blood by Pulse oximetry 2024-09-01 16:01:00 98 /min Isabel Tomlinsono ld - External Body weight 2024-08-18 14:32:00 53.978 kg Adriane sarmiento Seybold - External BMI 2024-08-18 14:32:00 21.77 kg/m2 Adriane sarmiento Seybold - External BP Systolic 2024-08-13 00:00:00 107 mm[Hg] [facility] Body Weight 2024-08-13 00:00:00 118 [lb_av] [facility] BMI (Body Mass Index) 2024-08-13 00:00:00 21.6 kg/m2 [facility] Height 2024-08-13 00:00:00 62 [in_i] [facility] BP Diastolic 2024-08-13 00:00:00 71 mm[Hg] [facility] BP Diastolic 2024-07-29 00:00:00 78 mm[Hg] [facility] Body Weight 2024-07-29 00:00:00 118 [lb_av] [facility] BMI (Body Mass Index) 2024-07-29 00:00:00 21.6 kg/m2 [facility] BP Systolic 2024-07-29 00:00:00 118 mm[Hg] [facility] Height 2024-07-29 00:00:00 62 [in_i] [facility] Systolic blood pressure 2024-07-21 19:55:00 118 mm[Hg] Isabel Muñozybo ld - External Diastolic blood pressure 2024-07-21 19:55:00 70 mm[Hg] Isabel Muñozybo ld - External Heart rate 2024-07-21 19:55:00 74 /min Norma Tomlinsonold - External Body temperature 2024-07-21 19:55:00 36.78 Anjelica Isabel Sewell - External Respiratory rate 2024-07-21 19:55:00 16 /min Isabel Sewell - External Body height 2024-07-21 19:55:00 157.5 cm Adriane sarmiento Seybold - External Body weight 2024-07-21 19:55:00 52.527 kg Adriane ey Seybold - External BMI 2024-07-21 19:55:00 21.18 kg/m2 Adriane sarmiento Seybold - External Oxygen saturation in Arterial blood by Pulse oximetry 2024-07-21 19:55:00 99 /min Isabel Tomlinsono ld - External Body Weight 2024-07-15 00:00:00 112 [lb_av] [facility] BMI (Body Mass Index) 2024-07-15 00:00:00 20.5 kg/m2 [facility] Height 2024-07-15 00:00:00 62 [facility]in[facility] Sy[facility] 2024-06-30 00:30:00 105 mm[Hg] [facility] Diastolic blood pressure 2024-06-30 00:30:00 86 mm[Hg] [facility] Heart rate 2024-06-30 00:30:00 82 /min [facility] Respiratory rate 2024-06-30 00:30:00 19 /min [facility] Oxygen saturation in Arterial blood by Pulse oximetry 2024-06-30 00:30:00 96 /min [facility] Body temperature 2024-06-29 20:16:00 37.11 Anjelica [facility] Body height 2024-06-29 20:16:00 157.5 cm [facility] Body weight 2024-06-29 20:16:00 54.432 kg [facility] BMI 2024-06-29 20:16:00 21.95 kg/m2 [facility] Height 2024-06-18 00:00:00 62 [in_i] [facility] BP Systolic 2024-06-18 00:00:00 96 mm[Hg] [facility] BP Diastolic 2024-06-18 00:00:00 61 mm[Hg] [facility] Body Weight 2024-06-18 00:00:00 119.6 [lb_av] [facility] BMI (Body Mass Index) 2024-06-18 00:00:00 21.9 kg/m2 [facility] Systolic blood pressure 2024-06-16 20:41:00 115 mm[Hg] Isabel Seybo ld - External Diastolic blood pressure 2024-06-16 20:41:00 72 mm[Hg] Isabel Seybo ld - External Heart rate 2024-06-16 20:41:00 70 /min Teja y Seybold - External Body temperature 2024-06-16 20:41:00 36.94 Anjelica Isabel Seybold - External Respiratory rate 2024-06-16 20:41:00 15 /min Isabel Muñozybold - External Body height 2024-06-16 20:41:00 157.5 cm Adriane ey Seybold - External Body weight 2024-06-16 20:41:00 55.339 kg Adriane ey Seybold - External BMI 2024-06-16 20:41:00 22.31 kg/m2 Adriane ey Seybold - External Oxygen saturation in Arterial blood by Pulse oximetry 2024-06-16 20:41:00 96 /min Isabel Muñozybo ld - External Systolic blood pressure 2024-05-05 16:26:00 119 mm[Hg] [facility] Diastolic blood pressure 2024-05-05 16:26:00 79 mm[Hg] [facility] Heart rate 2024-05-05 16:26:00 70 /min [facility] 2024-05-05 16:26:00 36.72 Anjelica [facility] Respiratory rate 2024-05-05 16:26:00 18 /min [facility] Body height 2024-05-05 16:26:00 157.5 cm [facility] Body weight 2024-05-05 16:26:00 53.298 kg [facility] BMI 2024-05-05 16:26:00 21.49 kg/m2 [facility] Oxygen saturation in Arterial blood by Pulse oximetry 2024-05-05 16:26:00 99 /min [facility] BMI (Body Mass Index) 2024-04-30 00:00:00 21.9 kg/m2 [facility] Height 2024-04-30 00:00:00 62 [in_i] [facility] BP Systolic 2024-04-30 00:00:00 113 mm[Hg] [facility] BP Diastolic 2024-04-30 00:00:00 73 mm[Hg] [facility] Body Weight 2024-04-30 00:00:00 119.6 [lb_av] [facility] Systolic blood pressure 2024-04-28 21:05:00 100 mm[Hg] [facility] Diastolic blood pressure 2024-04-28 21:05:00 65 mm[Hg] [facility] Heart rate 2024-04-28 21:05:00 75 /min [facility] Body temperature 2024-04-28 21:05:00 36.94 Anjelica [facility] Body height 2024-04-28 21:05:00 157.5 cm [facility] Body weight 2024-04-28 21:05:00 53.524 kg [facility] BMI 2024-04-28 21:05:00 21.58 kg/m2 [facility] Oxygen saturation in Arterial blood by Pulse oximetry 2024-04-28 21:05:00 97 /min [facility] BP Systolic 2024-04-03 00:00:00 120 mm[Hg] [facility] Height 2024-04-03 00:00:00 62 [in_i] [facility] Body Weight 2024-04-03 00:00:00 114 [lb_av] [facility] BMI (Body Mass Index) 2024-04-03 00:00:00 20.9 kg/m2 [facility] BP Diastolic 2024-04-03 00:00:00 82 mm[Hg] [facility] Systolic blood pressure 2024-04-02 23:20:00 129 mm[Hg] [facility] Diastolic blood pressure 2024-04-02 23:20:00 77 mm[Hg] [facility] Heart rate 2024-04-02 23:20:00 88 /min [facility] Body temperature 2024-04-02 23:20:00 36.61 Anjelica [facility] Respiratory rate 2024-04-02 23:20:00 18 /min [facility] Oxygen saturation in Arterial blood by Pulse oximetry 2024-04-02 23:20:00 99 /min [facility] Body height 2024-04-02 18:16:00 157.5 cm [facility] Body weight 2024-04-02 18:16:00 52.164 kg [facility] BMI 2024-04-02 18:16:00 21.03 kg/m2 [facility] Systolic blood pressure 2024-03-26 04:00:00 140 mm[Hg] [facility] Diastolic blood pressure 2024-03-26 04:00:00 96 mm[Hg] [facility] Heart rate 2024-03-26 04:00:00 72 /min [facility] Body temperature 2024-03-26 04:00:00 36.83 Anjelica [facility] Respiratory rate 2024-03-26 04:00:00 17 /min [facility] Oxygen saturation in Arterial blood by Pulse oximetry 2024-03-26 04:00:00 94 /min [facility] Body height 2024-03-26 00:20:00 157.5 cm [facility] Body weight 2024-03-26 00:20:00 52.164 kg [facility] BMI 2024-03-26 00:20:00 21.03 kg/m2 [facility] BP Diastolic 2024-03-20 00:00:00 79 mm[Hg] [facility] Height 2024-03-20 00:00:00 62 [in_i] [facility] BMI (Body Mass Index) 2024-03-20 00:00:00 20.9 kg/m2 [facility] Body Weight 2024-03-20 00:00:00 114 [lb_av] [facility] BP Systolic 2024-03-20 00:00:00 115 mm[Hg] [facility] BP Systolic 2024-03-06 00:00:00 97 mm[Hg] [facility] BP Diastolic 2024-03-06 00:00:00 66 mm[Hg] [facility] Height 2024-03-06 00:00:00 62 [in_i] [facility] Body Weight 2024-03-06 00:00:00 114 [lb_av] [facility] BMI (Body Mass Index) 2024-03-06 00:00:00 20.9 kg/m2 [facility] Height 2024-02-21 00:00:00 62 [in_i] [facility] BP Systolic 2024-02-21 00:00:00 116 mm[Hg] [facility] BMI (Body Mass Index) 2024-02-21 00:00:00 20.9 kg/m2 [facility] BP Diastolic 2024-02-21 00:00:00 80 mm[Hg] [facility] Body Weight 2024-02-21 00:00:00 114 [lb_av] [facility] BP Diastolic 2024-01-31 00:00:00 69 mm[Hg] [facility] BP Systolic 2024-01-31 00:00:00 106 mm[Hg] [facility] Height 2024-01-31 00:00:00 62 [in_i] [facility] Height 2024-01-21 00:00:00 62 [in_i] [facility] Body Weight 2024-01-21 00:00:00 114 [lb_av] [facility] BP Diastolic 2024-01-21 00:00:00 67 mm[Hg] [facility] BP Systolic 2024-01-21 00:00:00 105 mm[Hg] [facility] BMI (Body Mass Index) 2024-01-21 00:00:00 20.9 kg/m2 [facility] Systolic blood pressure 2024-01-19 03:09:00 121 mm[Hg] [facility] Diastolic blood pressure 2024-01-19 03:09:00 104 mm[Hg] [facility] Heart rate 2024-01-19 03:09:00 65 /min [facility] Respiratory rate 2024-01-19 03:09:00 15 /min [facility] Oxygen saturation in Arterial blood by Pulse oximetry 2024-01-19 03:09:00 97 /min [facility] Body temperature 2024-01-18 22:21:00 37.28 Anjelica [facility] Body height 2024-01-18 22:21:00 157.5 cm [facility] Body weight 2024-01-18 22:21:00 51.256 kg [facility] BMI 2024-01-18 22:21:00 20.67 kg/m2 [facility] Systolic blood pressure 2023-12-18 17:30:00 108 mm[Hg] [facility] Diastolic blood pressure 2023-12-18 17:30:00 79 mm[Hg] [facility] Heart rate 2023-12-18 17:30:00 62 /min [facility] Body temperature 2023-12-18 17:30:00 36.89 Anjelica [facility] Oxygen saturation in Arterial blood by Pulse oximetry 2023-12-18 17:30:00 96 /min [facility] Respiratory rate 2023-12-18 16:30:00 18 /min [facility] Body height 2023-12-18 15:31:00 157.5 cm [facility] Body weight 2023-12-18 15:31:00 49.896 kg [facility] BMI 2023-12-18 15:31:00 20.12 kg/m2 [facility] Systolic blood pressure 2023-09-29 03:39:00 125 mm[Hg] [facility] Diastolic blood pressure 2023-09-29 03:39:00 86 mm[Hg] [facility] Heart rate 2023-09-29 03:39:00 68 /min [facility] Respiratory rate 2023-09-29 03:39:00 16 /min [facility] Oxygen saturation in Arterial blood by Pulse oximetry 2023-09-29 03:39:00 98 /min [facility] Body temperature 2023-09-29 01:15:00 36.72 Anjelica [facility] Body height 2023-09-29 01:15:00 157.5 cm [facility] Body weight 2023-09-29 01:15:00 52.164 kg [facility] BMI 2023-09-29 01:15:00 21.03 kg/m2 [facility] Systolic blood pressure 2023-08-04 07:35:00 110 mm[Hg] [facility] Diastolic blood pressure 2023-08-04 07:35:00 77 mm[Hg] [facility] Heart rate 2023-08-04 07:35:00 69 /min [facility] Respiratory rate 2023-08-04 07:35:00 16 /min [facility] Oxygen saturation in Arterial blood by Pulse oximetry 2023-08-04 07:35:00 96 /min [facility] Body temperature 2023-08-04 05:03:00 36.78 Anjelica [facility] Body weight 2023-08-04 01:38:00 52.164 kg [facility] BMI 2023-08-04 01:38:00 21.03 kg/m2 [facility] Systolic blood pressure 2023-06-28 07:00:00 130 mm[Hg] [facility] Diastolic blood pressure 2023-06-28 07:00:00 96 mm[Hg] [facility] Heart rate 2023-06-28 07:00:00 72 /min [facility] Body temperature 2023-06-28 07:00:00 37.17 Anjelica [facility] [place] Respiratory rate 2023-06-28 07:00:00 16 /min [facility] [place] Oxygen saturation in Arterial blood by Pulse oximetry 2023-06-28 07:00:00 99 /min [facility] Body height 2023-06-28 06:07:00 157.5 cm [facility] Body weight 2023-06-28 06:07:00 54.432 kg [facility] BMI 2023-06-28 06:07:00 21.95 kg/m2 [facility] Systolic blood pressure 2023-06-21 01:07:11 101 mm[Hg] [facility] Diastolic blood pressure 2023-06-21 01:07:11 72 mm[Hg] [facility] Heart rate 2023-06-21 01:07:11 76 /min [facility] Body temperature 2023-06-21 01:07:11 37.06 Anjelica [facility] [place] Respiratory rate 2023-06-21 01:07:11 16 /min [facility] [place] Oxygen saturation in Arterial blood by Pulse oximetry 2023-06-21 01:07:11 98 /min [facility] Body height 2023-06-20 22:50:00 157.5 cm [facility] Body weight 2023-06-20 22:50:00 54.432 kg [facility] BMI 2023-06-20 22:50:00 21.95 kg/m2 [facility] Systolic blood pressure 2024-04-28 21:05:00 100 mm[Hg] [facility] Diastolic blood pressure 2024-04-28 21:05:00 65 mm[Hg] [facility] Heart rate 2024-04-28 21:05:00 75 /min [facility] Body temperature 2024-04-28 21:05:00 36.94 Anjelica [facility] Body height 2024-04-28 21:05:00 157.5 cm [facility] Body weight 2024-04-28 21:05:00 53.524 kg [facility] BMI 2024-04-28 21:05:00 21.58 kg/m2 [facility] Oxygen saturation in Arterial blood by Pulse oximetry 2024-04-28 21:05:00 97 /min [facility] Respiratory rate 2024-04-02 23:20:00 18 /min [facility] [place] Procedures Procedure Date / Time Performed Performing Clinician Source URINALYSIS 2024-10-24 02:55:00 Yuly Saucedo [facility] CT ABDOMEN PELVIS W CONTRAST 2024-10-24 02:22:16 Yuly Saucedo [facility] LIPASE 2024-10-24 01:47:00 Yuly Saucedo [facility] TROPONIN I 2024-10-24 01:47:00 Yuly Saucedo [facility] COMP. METABOLIC PANEL (31167) 2024-10-24 01:47:00 Yuly Saucedo [facility] CBC WITH DIFF 2024-10-24 01:47:00 Yuly Saucedo [facility] N-TERMINAL PRO-BNP 2024-10-24 01:47:00 Yuly Deleon [facility] XR ANKLE 3+ VW LEFT 2024-09-06 15:15:18 Daniela Norris [facility] CT, abdomen + pelvis, w/ contrast 2024-07-24 00:00:[address] [facility] [address], abdomen + pelvis, w/wo contrast 2024-07-18 00:00:[address] [facility] [address], abdomen + pelvis, w/ contrast 2024-07-15 00:00:00 [facility] CHANGE DRAINAGE DEVICE IN PELVIC CAVITY, EXTERNAL 2024-07-04 00:00:00 KYRPO [facility] DRAINAGE OF VAGINA WITH DRAINAGE DEVICE, PERC APPR 2024-07-01 00:00:[address] [facility] DRAINAGE OF PELVIC CAVITY WITH DRAIN DEV, PERC KIMI 2024-07-01 00:00:00 KUMSA[facility]02 [facility] INSERTION OF INFUSION DEVICE INTO UPPER VEIN, PERC 2024-06-30 00:00:[address] [facility] [address] ABDOMEN PELVIS W CONTRAST 2024-06-29 21:51:47 Yuly Saucedo [facility] LIPASE 2024-06-29 20:47:00 Yuly Saucedo [facility] COMP. METABOLIC PANEL ([id number]) 2024-06-29 20:47:00 Yuly Saucedo [facility] CBC WITH DIFF 2024-06-29 20:47:00 Yuly Saucedo [facility] Laparoscopic Hysterectomy 2024-06-23 00:00:00 [facility] MAMMO, diagnostic, digital, bilateral 2024-04-30 00:00:00 [facility] Medical US, breast, unilateral 2024-04-30 00:00:00 [facility] POCT URINALYSIS 2024-04-28 22:14:00 Paresh Curiel [facility] POCT URINALYSIS 2024-04-28 22:14:00 Paresh Curiel [facility] MAMMO, diagnostic, digital, bilateral 2024-04-23 00:00:00 [facility] US, breast, bilateral 2024-04-23 00:00:00 [facility] Medical US, breast, unilateral 2024-04-03 00:00:00 [facility] RAPID STREP SCREEN FOR GROUP A 2024-04-02 18:57:00 Yuly Saucedo [facility] INFLUENZA A/B RSV COVID NAAT 2024-04-02 18:57:00 Yuly Saucedo [facility] INFLUENZA A/B RSV COVID NAAT 2024-04-02 18:57:00 Yuly Saucedo [facility] RAPID STREP SCREEN FOR GROUP A 2024-04-02 18:57:00 Yuly Saucedo [facility] THROAT CULTURE 2024-04-02 18:57:00 Yuly Saucedo [facility] LAB ONLY COVID INTERPRETATION 2024-04-02 18:57:00 Yuly Saucedo [facility] OVARY TORSION 2024-03-26 03:17:59 Jona Granados [facility] US OVARY TORSION 2024-03-26 03:17:59 Jona Granados [facility] CT ABDOMEN PELVIS W CONTRAST 2024-03-26 01:27:33 Jona Granados [facility] CT ABDOMEN PELVIS W CONTRAST 2024-03-26 01:27:33 Jona Granados [facility] BASIC METABOLIC PANEL (NA, K, CL, CO2, GLUCOSE, BUN, CREATININE, CA) 2024-03-26 00:48:00 Jona Granados [facility] CBC WITH DIFF 2024-03-26 00:48:00 Jona Granados [facility] CBC WITH DIFF 2024-03-26 00:48:00 Jona Granados [facility] BASIC METABOLIC PANEL (NA, K, CL, CO2, GLUCOSE, BUN, CREATININE, CA) 2024-03-26 00:48:00 Jona Granados [facility] URINALYSIS 2024-03-26 00:45:00 Jona Granados [facility] POCT TEST 2024-03-26 00:45:00 Jona Granados [facility] URINALYSIS 2024-03-26 00:45:00 Jona Granados [facility] POCT TEST 2024-03-26 00:45:00 Jona Granados [facility] US TRANSVAGINAL 2024-01-24 00:00:[address] [facility] [address] ABDOMEN PELVIS W CONTRAST 2024-01-19 01:54:58 Caren Johnston [facility] LIPASE 2024-01-19 01:21:00 [facility] COMP. METABOLIC PANEL ([id number]) 2024-01-19 01:21:00 Caren Johnston [facility] CBC WITH DIFF 2024-01-19 01:20:00 Caren Johnston [facility] URINALYSIS 2024-01-18 22:34:00 Caren Johnston [facility] POCT TEST 2024-01-18 22:34:00 Agueda Johnston [facility] CT LUMBAR SPINE WO CONTRAST 2023-12-18 16:46:32 Serjio Andino [facility] CT ABDOMEN PELVIS WO CONTRAST 2023-12-18 16:32:00 Serjio Andino [facility] COMP. METABOLIC PANEL ([id number]) 2023-12-18 16:22:00 Serjio Andino [facility] CBC WITH DIFF 2023-12-18 16:22:00 Serjio Andino [facility] POCT TEST 2023-12-18 15:46:00 Jennifer Andino [facility] URINALYSIS 2023-12-18 15:45:00 Serjio Andino [facility] LIPASE 2023-08-04 05:13:00 [facility] TEST, SERUM 2023-08-04 05:13:00 Uyen Montilla l [facility] COMP. METABOLIC PANEL ([id number]) 2023-08-04 05:13:00 Kojo [facility] CBC WITH DIFF 2023-08-04 05:12:00 Kojo [facility] US GALL BLADDER 2023-08-04 02:59:30 Kosfritz [facility] URINALYSIS 2023-08-04 02:31:00 [facility] CONSENT/REFUSAL FOR DIAGNOSIS AND TREATMENT 2023-08-04 01:36:23 Doctor Unassigned, Moraida [facility] COMP. METABOLIC PANEL ([id number]) 2023-06-28 06:30:00 Lee Jett [facility] CBC WITH DIFF 2023-06-28 06:30:00 [facility]YSIS 2023-06-28 06:30:00 [facility] URINE DRUG (IMMUNOASSAY) - COMPREHENSIVE DRUG SCREEN W/O REFLEX 2023-06-28 06:30:00 [facility] CONSENT/REFUSAL FOR DIAGNOSIS AND TREATMENT 2023-06-28 05:58:09 Doctor Unassigned, Moraida [facility] PELVIS COMPLETE WITH TRANSVAGINAL 2023-06-21 00:41:20 Yesenia Kendrick [facility] POCT TEST 2023-06-21 00:10:00 Lashawn Kendrick [facility] COMP. METABOLIC PANEL ([id number]) 2023-06-21 00:01:00 Yesenia Kendrick [facility] CBC WITH DIFF 2023-06-21 00:01:00 Yesenia Kendrick [facility] URINALYSIS 2023-06-21 00:01:00 Yesenia Kendrick [facility] NOTICE OF PRIVACY PRACTICES 2023-06-20 22:47:12 Doctor Unassigned, Moraida [facility] CONSENT/REFUSAL FOR DIAGNOSIS AND TREATMENT 2023-06-20 22:46:00 Doctor Unassigned, Moraida [facility] Cholecystectomy 2009-06-04 00:00:00 [facility] Ligation of Fallopian Tube 1999-06-04 00:00:00 [facility] 1992-06-04 00:00:00 [facility] En[facility] Start Date/Time End Date/Time Encounter Type Admission Type Attending [facility] Facility Care Department Encounter ID Source 2025-06-17 08:45:00 2025-06-17 08:45:00 Outpatient [facility]IL [facility]EN[facility] [id number] [facility] 2025-06-15 10:00:00 2025-06-15 10:00:00 Outpatient AKIL MENDEZ [id number] [facility] 2025-01-13 12:30:00 2025-01-13 12:30:00 Outpatient ISABEL AUSTIN [id number] [facility] 2025-01-04 11:19:00 2025-01-04 12:29:00 Emergency X SERJIO ANDINO [facility] [id number] [facility] 2024-12-30 00:00:00 2024-12-30 00:00:00 Outpatient MD ISABEL GARCIA [id number] [facility] 2024-12-23 13:45:00 2024-12-23 13:45:00 Outpatient KAYLAH CLARKE [id number] [facility] 2024-12-22 14:30:00 2024-12-22 14:30:00 Outpatient BEBE SOTELO [id number] [facility] 2024-12-19 00:00:00 2024-12-19 00:00:00 Outpatient AKIL MENDEZ [id number] [facility] 2024-12-19 00:00:00 2024-12-19 00:00:00 Outpatient AKIL MENDEZ [id number] [facility] 2024-12-18 08:15:00 2024-12-18 08:15:00 Outpatient PREZAAKIL Flowers [id number] [facility] 2024-12-18 00:00:00 2024-12-18 00:00:00 Outpatient AKIL MENDEZ [id number] [facility] 2024-12-16 11:05:00 2024-12-16 11:05:00 Outpatient ISABEL AUSTIN [id number] [facility] 2024-12-10 14:30:00 2024-12-10 14:30:00 Outpatient GUSTABO APODACA ISABEL [id number] [facility] 2024-10-29 00:00:00 2024-11-29 18:21:40 Patient Secure Msg Doctor Unassigned, Moraida Doctor Unassigned, Moraida [facility] 1.2.840.114 350.1.13.10 4.2.7.2.[id number] [facility] 2024-11-28 12:30:00 2024-11-28 12:30:00 Outpatient Fausto RADHA FERNANDEZ [facility] [id number] [facility] 2024-11-24 00:00:00 2024-11-24 00:00:00 Outpatient AKIL MENDEZ [id number] [facility] 2024-11-14 14:30:00 2024-11-14 14:30:00 Outpatient PREZAAKIL Flowers ISABEL [id number] [facility] 2024-11-06 00:00:00 2024-11-06 00:00:00 Outpatient ISABEL AUSTIN [id number] [facility] 2024-10-29 13:18:36 2024-10-29 13:18:36 Outpatient SFA [facility] [id number] Josef Alas Anuj 2024-10-23 20:07:00 2024-10-24 00:21:00 Emergency X AUFDERHEIDE , YULY AUFDERHEIDE , YULY [facility] [id number] [facility] 2024-10-24 00:00:00 2024-10-24 00:00:00 Outpatient AKIL MENDEZ ISABEL ISABEL [id number] [facility] 2024-10-20 13:10:00 2024-10-20 13:10:00 Outpatient ELYSIATYREE OLEA ISABEL AUSTIN [id number] [facility] 2024-10-18 00:00:00 2024-10-18 00:00:00 Outpatient AKIL MENDEZ ISABEL AUSTIN [id number] [facility] 2024-10-14 13:10:00 2024-10-14 13:10:00 Outpatient ELYSIATYREE OLEA ISABEL AUSTIN [id number] [facility] 2024-10-14 10:40:00 2024-10-14 10:40:00 Outpatient ELYSIATYREE ISABEL AUSTIN [id number] [facility] 2024-10-13 10:30:00 2024-10-13 10:30:00 Outpatient YANGZAAKIL Flowers ISABEL AUSTIN [id number] [facility] 2024-10-10 00:00:00 2024-10-10 00:00:00 Outpatient MD ISABEL GARCIA [id number] [facility] 2024-10-09 00:00:00 2024-10-09 00:00:00 Outpatient BEBE SOTELO [id number] [facility] 2024-10-08 00:00:00 2024-10-08 00:00:00 Saulo Montenegro MD: [address] [place] [address] Dr [address], [facility] [address], [place] [address] , Ph. Critical access hospital - GC_GCBZW_[facility] Price* [id number] [facility] 2024-10-03 09:30:00 2024-10-03 09:30:00 Outpatient BEBE SOTELO [id number] [facility] 2024-10-02 00:00:2024-10-02 00:00:00 Outpatient IBRAHIMKVNG ISABEL AUSTIN [id number] [facility] 2024-10-01 00:00:00 2024-10-01 00:00:00 Outpatient MD ISABEL GARCIA [id number] [facility] 2024-10-01 00:00:00 2024-10-01 00:00:00 Outpatient AKIL MENDEZ ISABEL AUSTIN [id number] [facility] 2024-10-01 00:00:00 2024-10-01 00:00:00 Outpatient IBRAHIM, UMAIR ISABEL AUSTIN [id number] [facility] 2024-09-29 09:50:00 2024-09-29 09:50:00 Outpatient ELYSIATYREE OLEA ISABEL AUSTIN [id number] [facility] 2024-09-15 14:37:12 2024-09-15 14:37:12 Outpatient SFA SFA [id number] Josef Leslie 2024-09-10 00:00:00 2024-09-10 00:00:00 TIMMY Abdullahi: [address], [place] [address], [place] [address] , Ph. Critical access hospital - GC_GCBZW_[facility]* [id number] [facility] 2024-09-06 09:19:00 2024-09-06 12:31:00 Emergency X JAQUI NORRIS [facility] ERT [id number] [facility] 2024-09-06 09:19:00 2024-09-06 12:31:00 Emergency Jaqui Norris [facility] 1.2.840.114 350.1.13.10 4.2.7.2.[id number] [facility] 2024-09-01 11:00:00 2024-09-01 11:00:00 Outpatient AKIL MENDEZ ISABEL AUSTIN [id number] [facility] 2024-08-18 09:20:00 2024-08-18 09:20:00 Outpatient ELYSIATYREE OLEA ISABEL AUSTIN [id number] [facility] 2024-08-18 09:15:00 2024-08-18 09:15:00 Outpatient ISABELDARIANA AUSTIN [id number] [facility] 2024-08-15 00:00:00 2024-08-15 00:00:00 Outpatient TYREE NAIDU ISABEL ISABEL [id number] [facility] 2024-08-13 00:00:00 2024-08-13 00:00:00 TIMMY Abdullahi: [address], [address], [place] [address] , Ph. Critical access hospital - GC_GCBZW_[facility]* [id number] [facility] 2024-08-11 00:00:00 2024-08-11 00:00:00 Outpatient PREAKIL LANTIGUA ISABEL AUSTIN [id number] [facility] 2024-08-05 00:00:00 2024-08-05 00:00:00 Outpatient PREAKIL LANTIGUA ISABEL AUSTIN [id number] [facility] 2024-08-04 00:00:00 2024-08-04 00:00:00 Outpatient AKIL MENDEZ ISABEL AUSTIN [id number] [facility] 2024-07-29 09:05:00 2024-07-29 09:05:00 Outpatient BILLIE Sum[facility] [id number] [facility] 2024-07-29 06:25:00 2024-07-29 06:25:00 Outpatient BILLIE RosalindafrankieSaulo huang [facility] [id number] 34 [facility] 2024-07-29 00:00:00 2024-07-29 00:00:00 Saulo Montenegro MD: [address], [address], [place] [address] , Ph. Critical access hospital - GC_GCBZW_Ri speedy Albert* [id number] [facility] 2024-07-25 11:45:00 2024-07-25 11:45:00 Outpatient ISABEL ISABEL [id number] [facility] 2024-07-21 14:00:00 2024-07-21 14:00:00 Outpatient AKIL MENDEZ ISABEL [id number] [facility] 2024-07-16 00:00:00 2024-07-16 00:00:00 Outpatient AKIL MENDEZ ISABEL [id number] [facility] 2024-07-15 00:00:00 2024-07-15 00:00:00 Saulo Montenegro MD: [address] [place] [address] Dr [address], [place] [address], [place] [address] , Ph. Critical access hospital - GC[facility]GCBZ[facility]* [id number] [facility] 2024-07-14 12:00:00 2024-07-14 12:00:00 Outpatient LAB90 ISABEL AUSTIN [id number] [facility] 2024-07-11 08:07:00 2024-07-11 08:07:00 Outpatient BILLIE MarleneSuma HCAPM RADI [id number] 80 [facility] 2024-06-29 20:29:00 2024 15:29:00 Inpatient EM Levon Hurley HCAPM MEDI.01 [id number] 49 [facility] 2024-06-30 00:17:00 2024-06-30 00:17:00 Outpatient Levon Hurley HCACL LABO [id number] 01 [facility] 2024-06-30 00:00:00 2024-06-30 00:00:00 Outpatient AKIL MENDEZ ISABEL AUSTIN [id number] [facility] 2024-06-29 14:14:00 2024-06-29 18:38:00 Emergency X YULY SAUCEDO ERIN [facility] ERT [id number] [facility] 2024-06-29 14:14:00 2024-06-29 18:38:00 Emergency AugustamaribellerYuly chacon [facility] 1.2.840.114 350.1.13.10 4.2.7.2.[id number] [facility] 2024-06-19 00:00:00 2024-06-27 08:50:50 Telephone DeborahParesh huang [facility] 1.2.840.114 350.1.13.10 4.2.7.2.[id number] [facility] 2024-06-23 08:39:00 2024-06-23 08:39:00 Outpatient BILLIE Lawsonrajiv Saulo [facility] ROBI [id number] 63 [facility] 2024-06-18 00:00:00 2024-06-18 00:00:00 Arlen Hare, BUSINESS SUPPORT COORDINATOR: [address] [place] [address] Dr Flowers, [address] [address] , Ph. Critical access hospital - GC_GCBZW_[facility]* [id number] [facility] 2024-06-17 09:05:00 2024-06-17 09:05:00 Outpatient LAB90 ISABEL AUSTIN [id number] [facility] 2024-06-17 00:00:00 2024-06-17 00:00:00 Outpatient DANDRE JOHANSEN [id number] [facility] 2024-06-17 00:00:00 2024-06-17 00:00:00 Outpatient AKIL MENDEZ [id number] [facility] 2024-06-16 15:35:00 2024-06-16 15:35:00 Outpatient LAB90 ISABEL AUSTIN [id number] [facility] 2024-06-16 14:30:00 2024-06-16 14:30:00 Outpatient AKIL MENDEZ [id number] [facility] 2024-06-10 00:00:00 2024-06-10 00:00:00 Outpatient R SAULO MONTENEGRO [facility] [id number] [facility] 2024-05-26 00:00:00 2024-05-30 10:34:01 Telephone Paresh Curiel [facility] 1.2.840.114 350.1.13.10 4.2.7.2.[id number] [facility] 2024-05-22 00:00:00 2024-05-23 15:55:04 Telephone Paresh Curiel [facility] 1.2840.114 350.1.13.10 4.2.7.2.[id number] [facility] 2024-05-05 13:19:05 2024-05-05 13:19:05 Outpatient [facility] [id number] Josef Alas Anuj 2024-05-05 10:30:00 2024-05-05 10:51:29 Outpatient R PARESH CURIEL [facility] [id number] [facility] 2024-05-05 10:30:00 2024-05-05 10:51:29 Office Visit Paresh Curiel [facility] 1.2.840.114 350.1.13.10 4.2.7.2.[id number] [facility] 2024-04-30 00:00:00 2024-04-30 10:16:07 Nurse Triage Sherri Hall Tina M [facility] 1.2.840.114 350.1.13.10 4.2.7.2.[id number] [facility] 2024-04-30 00:00:00 2024-04-30 00:00:00 JUAN Ng: [address], [place] [address], [place] [address] , Ph. Critical access hospital - GC_GCBZW_[place] [facility]* [id number] [facility] 2024-04-29 07:30:00 2024-04-29 07:30:00 Outpatient PARESH PAREDES [facility] [id number] [facility] 2024-04-28 16:45:00 2024-04-28 16:45:00 Respiratory Director Visit Paresh Curiel Lab, Ang - Db 1.2.840.1 [id number] 3.104.2.7 .3.121231 .[id number] [facility] 2024-04-28 15:00:00 2024-04-28 15:50:34 Outpatient R PARESH CURIEL [facility] [id number] [facility] 2024-04-28 15:00:00 2024-04-28 15:50:34 Office Visit Paresh Curile 1.2.840.1 [id number] 3.104.2.7 .3.704571 .[id number] [facility] 2024-04-28 00:00:00 2024-04-28 00:00:00 Travel 1.2.840.1 [id number] 3.104.2.7 .3.986823 .8 1.2.840.114 350.1.13.10 [id number] [facility] 2024-04-21 09:00:00 2024-04-21 09:00:00 Outpatient R PARESH CURIEL [facility] [id number] [facility] 2024-04-17 10:00:00 2024-04-17 10:00:00 Outpatient ANA CRISTINA REDD [facility] [id number] [facility] 2024-04-17 00:00:00 2024-04-17 09:21:02 Telephone Ana Cristina Raymond 1.2.840.1 14043.1.1 3.104.2.7 .3.850968 .[id number] [facility] 2024-04-17 00:00:00 2024-04-17 00:00:00 Travel 1.2.840.1 [id number] 3.104.2.7 .3.532620 .8 1.2.840.114 350.1.13.10 4.2.7.3[id number] [facility] 2024-04-15 00:00:00 2024-04-15 10:02:16 Telephone Pcp, Patient Does Not Have A 1.2.840.1 14923.1.1 3.104.2.7 .3.732423 .[id number] [facility] 2024-04-03 00:00:00 2024-04-03 00:00:00 Ashely Drew, BUSINESS SUPPORT COORDINATOR: [address] [place] [address] [address], [place] [address], [place] [address] , Ph. Critical access hospital - GC_GCBZW_[facility]* [id number] [facility] 2024-04-02 13:18:00 2024-04-02 18:26:00 Emergency X YULY SAUCEDO ERIN [facility] ERT [id number] [facility] 2024-04-02 13:18:00 2024-04-02 18:26:00 Emergency Yuly Saucedo 1.2.840.1 37250.1.1 3.104.2.7 .3.897528 .[id number] [facility] 2024-04-02 00:00:00 2024-04-02 00:00:00 Travel 1.2.840.1 56027.1.1 3.104.2.7 .3.621504 .8 1.2.840.114 350.1.13.10 [address]7.3[id number] [facility] 2024-03-25 19:24:00 2024-03-25 23:06:00 Emergency X JONA GRANADOS ERICCA [facility] ERT [id number] [facility] 2024-03-25 19:24:00 2024-03-25 23:06:00 Emergency Jona Granados D 1.2.840.1 70562.1.1 3.104.2.7 .3.443744 .[id number] [facility] 2024-03-25 00:00:00 2024-03-25 00:00:00 Travel 1.2.840.1 21685.1.1 3.104.2.7 .3.352743 .8 1.2.840.114 350.1.13.[id number] [facility] 2024-03-20 00:00:00 2024-03-20 00:00:00 Saulo Montenegro MD: [address], [address], [place] [id number] , Ph. Critical access hospital - GC_GCBZW_Temitope Price* [id number] [facility] 2024-03-06 00:00:00 2024-03-06 00:00:00 LEEANN HobbsP: [address], [address], [place] [id number] , Ph. Critical access hospital - GC_GCBZW_Temitope Price* [id number] [facility] 2024-02-21 00:00:00 2024-02-21 00:00:00 JUAN Martínez: [address], [address], [place] [id number] , Ph. Critical access hospital - GC_GCBZW_Temitope Price* [id number] [facility] 2024-01-31 00:00:00 2024-01-31 00:00:00 Darlyn Molina, JUAN: [address], [facility] [address], [place] [id number] , Ph. Critical access hospital - GC_GCBZW_Temitope ruff Albert* [id number] [facility] 2024-01-24 00:00:00 2024-01-24 13:13:00 Letter (Out) David Blood [facility] ..840.114 350.1.13.10 4.2.7.2.[id number] [facility] 2024-01-24 00:00:00 2024-01-24 00:00:00 Saulo Montenegro MD: [address], [facility] [address], [place] [phone] , Ph. Critical access hospital - GC_GCBZW_Temitope ruff Albert* [id number] [facility] 2024-01-21 00:00:00 2024-01-21 00:00:00 JUAN Martínez: [address], [facility] [address], [place] [phone] , Ph. Critical access hospital - GC_GCBZW_Ri speedy Albert* [id number] [facility] 2024-01-18 17:23:00 2024-01-18 22:18:00 [facility] [id number] [facility] 2024-01-18 17:23:00 2024-01-18 22:18:00 Emergency Caren Johnston [facility] ..840.114 350.1.13.10 4.2.7.2.[id number] [facility] 2024-01-14 09:35:44 2024-01-14 09:35:44 Outpatient CRANBERRY [facility] [id number] Josef Leslie 2023-12-24 15:36:17 2023-12-24 15:36:17 Outpatient [facility] [id number] Josef Leslie 2023-12-18 10:33:00 2023-12-18 13:04:00 Emergency X SERJIO ANDINO DONNELL [facility] ERT [id number] [facility] 2023-12-18 10:33:00 2023-12-18 13:04:00 Emergency Serjio Andino [facility] 1.2.840.114 350.1.13.10 4.2.7.2.[id number] [facility] 2023-12-17 08:45:10 2023-12-17 08:45:10 Outpatient [facility] [id number] Josef Leslie 2023-12-03 13:05:31 2023-12-03 13:05:31 Outpatient [facility] [id number] Josef Leslie 2023-11-20 14:56:11 2023-11-20 14:56:11 Outpatient [facility] [id number] Josef Leslie 2023-11-13 13:46:51 2023-11-13 13:46:51 Outpatient [facility] [id number] Josef Leslie 2023-11-12 14:45:00 2023-11-12 14:45:00 Outpatient ALIN WYATT [id number] Isabel Sewell 2023-09-28 20:21:00 2023-09-28 22:45:00 Emergency X CAREN JOHNSTON [facility] ERT [id number] [facility] 2023-09-28 20:21:00 2023-09-28 22:45:00 [facility] 1.2.840.114 350.1.13.10 4.2.7.2.[id number] [facility] 2023-09-04 00:00:00 2023-09-04 00:00:00 Patient Outreach Beba Crespo 1.2840.114 350.1.13.10 4.2.7.2.[id number] [facility] 2023-08-24 00:00:00 2023-08-24 00:00:00 Patient Secure Msg Doctor Unassigned, Moraida [facility] 1.2840.114 350.1.13.10 4.2.7.2.[id number] [facility] 2023-08-03 19:46:00 2023-08-04 01:39:00 Emergency X RICH MONTILLA PAUL [facility] ERT [id number] [facility] 2023-08-03 19:46:00 2023-08-04 01:39:00 [facility] 1.840.114 350.1.13.10 4.2.7.2.[id number] [facility] 2023-06-28 00:00:00 2023-06-28 01:50:00 Emergency X LEE JETT [facility] ERT [id number] [facility] 2023-06-28 00:00:00 2023-06-28 01:50:00 Emergency Carlenevineet Joseingris [facility] 1.2840.114 350.1.13.10 4.2.7.2.[id number] [facility] 2023-06-20 16:53:00 2023-06-20 19:24:00 Emergency Yesenia Kendrick [facility] 1.2840.114 350.1.13.10 4.2.7.2.[id number] [facility] 2023-06-20 16:53:00 2023-06-20 19:24:00 Emergency X [facility]IL [facility] ERT [id number] [facility] 2023-06-20 16:53:00 2023-06-20 16:53:00 Emergency X YESENIA KENDRICK [facility] ERT [id number] [facility] Results Test Description Test Time Test Comments Results Result Comments Source CT Abdomen pelvis w contrast 03:31:01 Exam: CT ABDOMEN PELVIS W CONTRAST, 10/23/2024 8:30 PM. Ordering Physician: YULY SAUCEDO. History: Abdominal pain, acute, nonlocalized. Technique: CT ABDOMEN PELVIS W CONTRAST. Coronal and sagittal reconstructedimages were obtained. CT was performed according to ALARA (As Low AsReasonably Achievable). Technical Quality: Adequate. Comparison: CT abdomen and pelvis 06/29/2024. Findings: Bilateral lower lobe minimal dependent subsegmental atelectasis. Left upperlobe and right middle lobe minimal chronic scarring. Mildly distended stomach. The duodenum is not dilated. Cholecystectomy clips, no biliary ductal dilatation. Normal caliber liver. Mild diffuse hepatic steatosis. Patent portal veins. Unremarkable spleen. The pancreas is not enlarged, no pancreatic mass nor ductal dilatation. Normal right adrenal gland. Minimal minimal thickening of the left adrenalgland. Normal caliber kidneys, no obstructive uropathy nor renal mass. Small focalconcavity or a subcentimeter low-attenuation lesion in the right kidneyupper pole is too small to characterize. Minimal calcified atherosclerotic plaque in the normal caliber abdominalaorta. Unremarkable inferior vena cava. No abdominal nor pelvic lymphadenopathy. No dilated bowel loops. Circumferential wall thickening of bilateral upperabdominal small bowel loops secondary to underdistention or enteritis. Portions of the rectum and the colon are not distended. Distal rectal wallmeasures 1 cm in thickness. Proximal to distal rectal circumferential wallthickening secondary to underdistention or proctitis. The normal appendix contains appendicoliths, high attenuation fluid, ordebris. No free intraperitoneal air. Very trace free fluid in the pelvis. Noabscess nor loculated fluid collection. Hysterectomy. The equivocal right ovary is not enlarged. The left ovary isnot identified. Heterogeneous enhancement of the vagina of uncertain clinical significanceand etiology. Unremarkable urinary bladder. No acute osseous abnormality. Minimal levoconvex curvature of the lumbarspine [facility] [id number] 02:50:29* Test Item Value Reference Range Interpretation Comme nts NT-proBNP (test code = 49687-5) 22 pg/mL <=125 Lab Interpretation (test cod e = 49933-3) Normal [facility] (88540)2024-10-24 02:34:28* Test Item Value Reference Range Interpretation Comme nts NA (test code = 3493603780) 138 mmol/L 135-145 K (test code = 3112175122) 4.2 mmol/L 3.5-5.0 CL (test code = 8902588695) 105 mmol/L 98-108 CO2 TOTAL (test code = 3705824593) 28 mmol/L 23-31 AGAP (test code = 1130563754) 5 2-16 BUN (test code = 4377638382) 23 mg/dL 7-23 GLUCOSE (test code = 1562276549) 74 mg/dL 70-110 CREATININE (test code = 2160-0) 0.77 mg/dL 0.50-1.04 TOTAL BILI (test code = 6013048001) 0.7 mg/dL 0.1-1.1 CALCIUM (test code = 0424710678) 9.1 mg/dL 8.6-10.6 T PROTEIN (test code = 7578970073) 8.1 g/dL 6.3-8.2 ALBUMIN (test code = 1291500042) 4.3 g/dL 3.5-5.0 ALK PHOS (test code = 3418859329) 63 U/L 34-122 ALTv (test code = 1742-6) 76 U/L 5-35 H AST(SGOT) (test code = 9176740366) 58 U/L 13-40 H eGFR (test code = 14283-4) 94.1 mL/min/1.73m2 CKD-EPI eGFR (2020). Assuming creatinine has been stable day-to-day for at least three months, the eGFR indicates Category G1 (>= 90 mL/min/1.73 m2) Lab Interpretation (test code = 66676-0) Abnormal [facility]2025-05-23 02:34:28* Test Item Value Reference Range Interpretation Comme nts LIPASE (test code = 0175320954) 211 U/L 0-220 Lab Interpretation (test cod e = 71403-4) Normal [facility] with [id number] 02:12:23* Test Item Value Reference Range Interpretation Comme nts WBC (test code = 6690-2) 5.84 4.30-11.10 RBC (test code = 789-8) 4.61 3.93-5.25 HGB (test code = 718-7) 14 g/dL 11.6-15.0 HCT (test code = 4544-3) 42.3 % 35.7-45.2 MCV (test code = 787-2) 91.8 fL 80.6-95.5 MCH (test code = 785-6) 30.4 pg 25.9-32.8 MCHC (test code = 786-4) 33.1 g/dL 31.6-35.1 RDW-SD (test code = 30855-5) 45.5 fL 39.0-49.9 RDW-CV (test code = 788-0) 13.4 % 12.0-15.5 PLT (test code = 777-3) 274 166-358 MPV (test code = 09223-4) 9.7 fL 9.5-12.9 NRBC/100 WBC (test code = 2053118850) 0 0.0-10.0 NRBC x10^3 (test code = 2655045185) See_Comment [Automated messa ge] The system which generated this result transmitted reference range: 10*3/?L. The reference range was not used to interpret this result as normal/abnormal. GRAN MAT (NEUT) % (test code = 770-8) 65.3 % IMM GRAN % (test code = 8209317593) 0.3 % LYMPH % (test code = 736-9) 21.9 % MONO % (test code = 5905-5) 9.8 % EOS % (test code = 713-8) 2.2 % BASO % (test code = 706-2) 0.5 % GRAN MAT x10^3(ANC) (test code = 1852385196) 3.81 10*3/uL 1.88-7.09 IMM GRAN x10^3 (test code = 9075392052) 0.00-0.06 LYMPH x10^3 (test code = 731-0) 1.28 10*3/uL 1.32-3.29 L MONO x10^3 (test code = 742-7) 0.57 10*3/uL 0.33-0.92 EOS x10^3 (test code = 711-2) 0.13 10*3/uL 0.03-0.39 BASO x10^3 (test code = 704-7) 0.03 10*3/uL 0.01-0.07 Lab Interpretation (test code = 96538-5) Abnormal [facility]woodFollitropin [Units/volume] in Serum or Plasma 2024-09-11 00:00:00* Test Item Value Reference Range Interpretation Comme nts FSH (test code = FSH) 79.0 mIU/mL [facility]+ vw [id number] 15:58:45ORDERING PROVIDER: JAQUI NORRIS HISTORY: Pain. TECHNIQUE: 3 views of the left ankle were performed. COMPARISON: Radiograph of the left ankle performed 09/28/2023 FINDINGS/[facility]wood[facility] W Auto Differential panel - [id number] 00:00:00 * Test Item Value Reference Range Interpretation Comme nts WBC (test code = WBC) 8.5 10 3.7-12.0 RBC (test code = RBC) 4.76 10 3.60-5.50 HGB (test code = HGB) 13.8 g/dL 11.5-15.6 HCT (test code = HCT) 42.1 % 34.5-46.5 MCV (test code = MCV) 88.5 um 80.0-102.0 MCH (test code = MCH) 29.0 pg 25.0-34.1 MCHC (test code = MCHC) 32.8 g/dL 29.0-35.0 RDW (test code = RDW) 15.5 % 10.9-16.9 plt (test code = plt) 453 10 136-392 H MPV (test code = MPV) 8.5 um 7.4-11.1 gran % (test code = gran %) 69.4 % 36.0-78.0 lymph % (test code = lymph %) 22.6 % 12.0-48.0 mono % (test code = mono %) 4.9 % 0.0-13.0 eos % (test code = eos %) 2 % 0-8 baso % (test code = baso %) 1 % 0-2 gran # (test code = gran #) 5.9 10 1.2-6.8 lymph # (test code = lymph #) 1.9 10 1.2-3.2 mono # (test code = mono #) 0.4 10 0.3-0.8 eos # (test code = eos #) 0.2 10 0.0-0.4 baso # (test code = baso #) 0.1 10 0.0-0.2 [facility] W/AUTO [id number] 07:26:00* Test Item Value Reference Range Interpretation Comme nts WHITE BLOOD CELL (test code = WBC) 5.7 K/mm3 3.5-11.0 N RED BLOOD CELL (test code = RBC) 4.18 M/mm3 4.70-6.10 L HEMOGLOBIN (test code = HGB) 12.0 G/DL 10.4-14.9 N HEMATOCRIT (test code = HCT) 37.1 % 31.5-44.1 N MEAN CELL VOLUME (test code = MCV) 88.8 Fl 84.5-98.6 N MEAN CELL HGB (test code = MCH) 28.7 pg 27.0-34.2 N MEAN CELL HGB CONCETRATION (test code = MCHC) 32.3 G/DL 31.5-34.0 N RED CELL DISTRIBUTION WIDTH (test code = RDW) 14.5 SD 11.5-14.5 N PLATELET COUNT (test code = PLT) 369 K/mm3 150-450 N MEAN PLATELET VOLUME (test c ode = MPV) 9.00 fL 7.0-10.5 N NEUTROPHIL % (test code = NT%) 50.6 % 40-76 IMMATURE GRANULOCYTE % (test code = IG%) 0.4 % 0.0-5.0 N LYMPHOCYTE % (test code = LY%) 31.6 % 20.5-51.1 N MONOCYTE % (test code = MO%) 10.9 % 1.7-9.3 H EOSINOPHIL % (test code = EO%) 5.6 % 0.0-6.0 N BASOPHIL % (test code = BA%) 0.9 % 0.0-2.0 N NUCLEATED RBC % (test code = NRBC%) 0.0 /100WBC% 0.0-1.0 N NEUTROPHIL # (test code = NT#) 2.9 K/mm3 1.8-7.6 N IMMATURE GRANULOCYTE # (test code = IG#) 0.02 x10 3/uL 0.00-0.03 N LYMPHOCYTE # (test code = LY#) 1.8 K/mm3 0.6-3.2 N MONOCYTE # (test code = MO#) 0.6 K/mm3 0.3-1.1 N EOSINOPHIL # (test code = EO#) 0.3 K/mm3 0.0-0.4 N BASOPHIL # (test code = BA#) 0.1 K/mm3 0.0-0.1 N NUCLEATED RBC # (test code = NRBC#) 0.0 K/mm3 0.0-0.1 N CBC W/AUTO [id number] 13:05:00* Test Item Value Reference Range Interpretation Comme nts WHITE BLOOD CELL (test code = WBC) 6.3 K/mm3 3.5-11.0 N RED BLOOD CELL (test code = RBC) 4.39 M/mm3 4.70-6.10 L HEMOGLOBIN (test code = HGB) 12.6 G/DL 10.4-14.9 N HEMATOCRIT (test code = HCT) 38.7 % 31.5-44.1 N MEAN CELL VOLUME (test code = MCV) 88.2 Fl 84.5-98.6 N MEAN CELL HGB (test code = MCH) 28.7 pg 27.0-34.2 N MEAN CELL HGB CONCETRATION (test code = MCHC) 32.6 G/DL 31.5-34.0 N RED CELL DISTRIBUTION WIDTH (test code = RDW) 14.4 SD 11.5-14.5 N PLATELET COUNT (test code = PLT) 345 K/mm3 150-450 N MEAN PLATELET VOLUME (test code = MPV) 9.00 fL 7.0-10.5 N NEUTROPHIL % (test code = NT%) 58.3 % 40-76 IMMATURE GRANULOCYTE % (test code = IG%) 0.3 % 0.0-5.0 N LYMPHOCYTE % (test code = LY%) 24.1 % 20.5-51.1 N MONOCYTE % (test code = MO%) 12.0 % 1.7-9.3 H EOSINOPHIL % (test code = EO%) 4.5 % 0.0-6.0 N BASOPHIL % (test code = BA%) 0.8 % 0.0-2.0 N NUCLEATED RBC % (test code = NRBC%) 0.0 /100WBC% 0.0-1.0 N NEUTROPHIL # (test code = NT#) 3.7 K/mm3 1.8-7.6 N IMMATURE GRANULOCYTE # (test code = IG#) 0.02 x10 3/uL 0.00-0.03 N LYMPHOCYTE # (test code = LY#) 1.5 K/mm3 0.6-3.2 N MONOCYTE # (test code = MO#) 0.8 K/mm3 0.3-1.1 N EOSINOPHIL # (test code = EO#) 0.3 K/mm3 0.0-0.4 N BASOPHIL # (test code = BA#) 0.1 K/mm3 0.0-0.1 N NUCLEATED RBC # (test code = NRBC#) 0.0 K/mm3 0.0-0.1 N MANUAL DIFF REQUIRED (test code = MDIFF) NO DIFF/SCN CRITERIA SLIDE REVIEW CONSISTANT WITH AUTO DIFFERENTIAL. COMPREHENSIVE METABOLIC [id number] 11:56:00* Test Item Value Reference Range Interpretation Comme nts SODIUM (test code = NA) 141 mmol/L 136-145 N POTASSIUM (test code = K) 4.5 mmol/L 3.4-5.0 N CHLORIDE (test code = CL) 105 mmol/L 98-107 N CARBON DIOXIDE (test code = CO2) 31 mmol/L 21-32 N ANION GAP (test code = GAP) 5 GAP calc 4-15 N GLUCOSE (test code = GLU) 85 MG/DL 70-110 N BLOOD UREA NITROGEN (test code = BUN) 20 MG/DL 7-18 H GLOMERULAR FILTRATION RATE (test code = GFR) >=60 max estimate estGFR >60 The Glomerular Filtration Rate is a calculated parameterbased on serum Creatinine, patient age and sex. GFR valuesless than 60 mL/min/1.73 square meters are indicative ofChronic Kidney Disease. Values less than 15 mL/min/1.73square meters indicate Kidney failure. The calculation forGFR is based on the CKD-EPI (2020) calculation. This formulais race indifferent and is the recommended formula for GFRby the National Kidney Foundation for Adults.The GFR will not calculate if the sex is unknown or if thepatient's age is <18 years. CREATININE (test code = CREAT) 0.8 MG/DL 0.6-1.0 N TOTAL PROTEIN (test code = PROT) 7.5 G/DL 6.4-8.2 N ALBUMIN (test code = ALB) 2.6 G/DL 3.4-5.0 L GLOBULIN (test code = GLOB) 4.9 GM/dL ALBUMIN/GLOBULIN RATIO (test code = A/G) 0.5 RATIO 1.2-2.2 L CALCIUM (test code = CA) 9.3 MG/DL 8.5-10.1 N BILIRUBIN TOTAL (test code = BILT) 0.3 MG/DL 0.0-1.0 N SGOT/AST (test code = AST) 51 Unit/L 15-37 H SGPT/ALT (test code = ALT) 103 Unit/L 30-65 H ALKALINE PHOSPHATASE TOTAL (test code = ALKP) 217 Unit/L 50-136 H [id number] 11:56:00* Test Item Value Reference Range Interpretation Comme nts PHOSPHOROUS (test code = PHOS) 3.7 MG/DL 2.5-4.9 N [id number] 11:56:00* Test Item Value Reference Range Interpretation Comme nts MAGNESIUM (test code = MAG) 2.0 MG/DL 1.8-2.4 N CBC W/AUTO [id number] 14:33:00* Test Item Value Reference Range Interpretation Comme nts WHITE BLOOD CELL (test code = WBC) 10.2 K/mm3 3.5-11.0 N RED BLOOD CELL (test code = RBC) 4.18 M/mm3 4.70-6.10 L HEMOGLOBIN (test code = HGB) 12.0 G/DL 10.4-14.9 N HEMATOCRIT (test code = HCT) 36.5 % 31.5-44.1 N MEAN CELL VOLUME (test code = MCV) 87.3 Fl 84.5-98.6 N MEAN CELL HGB (test code = MCH) 28.7 pg 27.0-34.2 N MEAN CELL HGB CONCETRATION (test code = MCHC) 32.9 G/DL 31.5-34.0 N RED CELL DISTRIBUTION WIDTH (test code = RDW) 14.3 SD 11.5-14.5 N PLATELET COUNT (test code = PLT) 294 K/mm3 150-450 N MEAN PLATELET VOLUME (test c ode = MPV) 9.70 fL 7.0-10.5 N NEUTROPHIL % (test code = NT%) 77.0 % 40-76 H IMMATURE GRANULOCYTE % (test code = IG%) 0.5 % 0.0-5.0 N LYMPHOCYTE % (test code = LY%) 13.0 % 20.5-51.1 L MONOCYTE % (test code = MO%) 7.4 % 1.7-9.3 N EOSINOPHIL % (test code = EO%) 1.7 % 0.0-6.0 N BASOPHIL % (test code = BA%) 0.4 % 0.0-2.0 N NUCLEATED RBC % (test code = NRBC%) 0.0 /100WBC% 0.0-1.0 N NEUTROPHIL # (test code = NT#) 7.9 K/mm3 1.8-7.6 H IMMATURE GRANULOCYTE # (test code = IG#) 0.05 x10 3/uL 0.00-0.03 H LYMPHOCYTE # (test code = LY#) 1.3 K/mm3 0.6-3.2 N MONOCYTE # (test code = MO#) 0.8 K/mm3 0.3-1.1 N EOSINOPHIL # (test code = EO#) 0.2 K/mm3 0.0-0.4 N BASOPHIL # (test code = BA#) 0.0 K/mm3 0.0-0.1 N NUCLEATED RBC # (test code = NRBC#) 0.0 K/mm3 0.0-0.1 N HCG [id number] 08:36:00* Test Item Value Reference Range Interpretation Comme nts HCG SERUM (test code = HCG) 4 mi-IU/ML 0-6 N COMPREHENSIVE METABOLIC [id number] 04:30:00* Test Item Value Reference Range Interpretation Comme nts SODIUM (test code = NA) 141 mmol/L 136-145 N POTASSIUM (test code = K) 3.9 mmol/L 3.4-5.0 N CHLORIDE (test code = CL) 105 mmol/L 98-107 N CARBON DIOXIDE (test code = CO2) 31 mmol/L 21-32 N ANION GAP (test code = GAP) 5 GAP calc 4-15 N GLUCOSE (test code = GLU) 101 MG/DL 70-110 N BLOOD UREA NITROGEN (test code = BUN) 16 MG/DL 7-18 N GLOMERULAR FILTRATION RATE (test code = GFR) >=60 max estimate estGFR >60 The Glomerular Filtration Rate is a calculated parameterbased on serum Creatinine, patient age and sex. GFR valuesless than 60 mL/min/1.73 square meters are indicative ofChronic Kidney Disease. Values less than 15 mL/min/1.73square meters indicate Kidney failure. The calculation forGFR is based on the CKD-EPI (2020) calculation. This formulais race indifferent and is the recommended formula for GFRby the National Kidney Foundation for Adults.The GFR will not calculate if the sex is unknown or if thepatient's age is <18 years. CREATININE (test code = CREAT) 0.6 MG/DL 0.6-1.0 N TOTAL PROTEIN (test code = PROT) 6.3 G/DL 6.4-8.2 L ALBUMIN (test code = ALB) 2.1 G/DL 3.4-5.0 L GLOBULIN (test code = GLOB) 4.2 GM/dL ALBUMIN/GLOBULIN RATIO (test code = A/G) 0.5 RATIO 1.2-2.2 L CALCIUM (test code = CA) 8.7 MG/DL 8.5-10.1 N BILIRUBIN TOTAL (test code = BILT) 0.2 MG/DL 0.0-1.0 N SGOT/AST (test code = AST) 66 Unit/L 15-37 H SGPT/ALT (test code = ALT) 121 Unit/L 30-65 H ALKALINE PHOSPHATASE TOTAL (test code = ALKP) 233 Unit/L 50-136 H COMPREHENSIVE METABOLIC [id number] 05:00:00* Test Item Value Reference Range Interpretation Comme nts SODIUM (test code = NA) 138 mmol/L 136-145 N POTASSIUM (test code = K) 3.7 mmol/L 3.4-5.0 N CHLORIDE (test code = CL) 102 mmol/L 98-107 N CARBON DIOXIDE (test code = CO2) 30 mmol/L 21-32 N ANION GAP (test code = GAP) 6 GAP calc 4-15 N GLUCOSE (test code = GLU) 99 MG/DL 70-110 N BLOOD UREA NITROGEN (test code = BUN) 14 MG/DL 7-18 N GLOMERULAR FILTRATION RATE (test code = GFR) >=60 max estimate estGFR >60 The Glomerular Filtration Rate is a calculated parameterbased on serum Creatinine, patient age and sex. GFR valuesless than 60 mL/min/1.73 square meters are indicative ofChronic Kidney Disease. Values less than 15 mL/min/1.73square meters indicate Kidney failure. The calculation forGFR is based on the CKD-EPI (202) calculation. This formulais race indifferent and is the recommended formula for GFRby the National Kidney Foundation for Adults.The GFR will not calculate if the sex is unknown or if thepatient's age is <18 years. CREATININE (test code = CREAT) 0.5 MG/DL 0.6-1.0 L TOTAL PROTEIN (test code = PROT) 6.3 G/DL 6.4-8.2 L ALBUMIN (test code = ALB) 2.1 G/DL 3.4-5.0 L GLOBULIN (test code = GLOB) 4.2 GM/dL ALBUMIN/GLOBULIN RATIO (test code = A/G) 0.5 RATIO 1.2-2.2 L CALCIUM (test code = CA) 8.4 MG/DL 8.5-10.1 L BILIRUBIN TOTAL (test code = BILT) 0.2 MG/DL 0.0-1.0 N SGOT/AST (test code = AST) 127 Unit/L 15-37 H SGPT/ALT (test code = ALT) 162 Unit/L 30-65 H ALKALINE PHOSPHATASE TOTAL (test code = ALKP) 277 Unit/L 50-136 H CBC W/AUTO [id number] 04:46:00* Test Item Value Reference Range Interpretation Comme nts WHITE BLOOD CELL (test code = WBC) 8.7 K/mm3 3.5-11.0 N RED BLOOD CELL (test code = RBC) 3.86 M/mm3 4.70-6.10 L HEMOGLOBIN (test code = HGB) 11.1 G/DL 10.4-14.9 N HEMATOCRIT (test code = HCT) 33.8 % 31.5-44.1 N MEAN CELL VOLUME (test code = MCV) 87.6 Fl 84.5-98.6 N MEAN CELL HGB (test code = MCH) 28.8 pg 27.0-34.2 N MEAN CELL HGB CONCETRATION (test code = MCHC) 32.8 G/DL 31.5-34.0 N RED CELL DISTRIBUTION WIDTH (test code = RDW) 13.9 SD 11.5-14.5 N PLATELET COUNT (test code = PLT) 261 K/mm3 150-450 N MEAN PLATELET VOLUME (test c ode = MPV) 9.50 fL 7.0-10.5 N NEUTROPHIL % (test code = NT%) 73.9 % 40-76 N IMMATURE GRANULOCYTE % (test code = IG%) 0.3 % 0.0-5.0 N LYMPHOCYTE % (test code = LY%) 13.9 % 20.5-51.1 L MONOCYTE % (test code = MO%) 10.0 % 1.7-9.3 H EOSINOPHIL % (test code = EO%) 1.7 % 0.0-6.0 N BASOPHIL % (test code = BA%) 0.2 % 0.0-2.0 N NUCLEATED RBC % (test code = NRBC%) 0.0 /100WBC% 0.0-1.0 N NEUTROPHIL # (test code = NT#) 6.4 K/mm3 1.8-7.6 N IMMATURE GRANULOCYTE # (test code = IG#) 0.03 x10 3/uL 0.00-0.03 N LYMPHOCYTE # (test code = LY#) 1.2 K/mm3 0.6-3.2 N MONOCYTE # (test code = MO#) 0.9 K/mm3 0.3-1.1 N EOSINOPHIL # (test code = EO#) 0.2 K/mm3 0.0-0.4 N BASOPHIL # (test code = BA#) 0.0 K/mm3 0.0-0.1 N NUCLEATED RBC # (test code = NRBC#) 0.0 K/mm3 0.0-0.1 N CBC W/AUTO [id number] 04:37:00* Test Item Value Reference Range Interpretation Comme nts WHITE BLOOD CELL (test code = WBC) 11.4 K/mm3 3.5-11.0 H RED BLOOD CELL (test code = RBC) 4.11 M/mm3 4.70-6.10 L HEMOGLOBIN (test code = HGB) 11.9 G/DL 10.4-14.9 N HEMATOCRIT (test code = HCT) 36.2 % 31.5-44.1 N MEAN CELL VOLUME (test code = MCV) 88.1 Fl 84.5-98.6 N MEAN CELL HGB (test code = MCH) 29.0 pg 27.0-34.2 N MEAN CELL HGB CONCETRATION (test code = MCHC) 32.9 G/DL 31.5-34.0 N RED CELL DISTRIBUTION WIDTH (test code = RDW) 13.3 SD 11.5-14.5 N PLATELET COUNT (test code = PLT) 259 K/mm3 150-450 N MEAN PLATELET VOLUME (test c ode = MPV) 9.30 fL 7.0-10.5 N NEUTROPHIL % (test code = NT%) 85.3 % 40-76 H IMMATURE GRANULOCYTE % (test code = IG%) 0.4 % 0.0-5.0 N LYMPHOCYTE % (test code = LY%) 7.2 % 20.5-51.1 L MONOCYTE % (test code = MO%) 5.8 % 1.7-9.3 N EOSINOPHIL % (test code = EO%) 0.9 % 0.0-6.0 N BASOPHIL % (test code = BA%) 0.4 % 0.0-2.0 N NUCLEATED RBC % (test code = NRBC%) 0.0 /100WBC% 0.0-1.0 N NEUTROPHIL # (test code = NT#) 9.7 K/mm3 1.8-7.6 H IMMATURE GRANULOCYTE # (test code = IG#) 0.04 x10 3/uL 0.00-0.03 H LYMPHOCYTE # (test code = LY#) 0.8 K/mm3 0.6-3.2 N MONOCYTE # (test code = MO#) 0.7 K/mm3 0.3-1.1 N EOSINOPHIL # (test code = EO#) 0.1 K/mm3 0.0-0.4 N BASOPHIL # (test code = BA#) 0.0 K/mm3 0.0-0.1 N NUCLEATED RBC # (test code = NRBC#) 0.0 K/mm3 0.0-0.1 N COMPREHENSIVE METABOLIC [id number] 04:49:00* Test Item Value Reference Range Interpretation Comme nts SODIUM (test code = NA) 138 mmol/L 136-145 N POTASSIUM (test code = K) 4.0 mmol/L 3.4-5.0 N CHLORIDE (test code = CL) 102 mmol/L 98-107 N CARBON DIOXIDE (test code = CO2) 26 mmol/L 21-32 N ANION GAP (test code = GAP) 10 GAP calc 4-15 N GLUCOSE (test code = GLU) 83 MG/DL 70-110 N BLOOD UREA NITROGEN (test code = BUN) 18 MG/DL 7-18 N GLOMERULAR FILTRATION RATE (test code = GFR) >=60 max estimate estGFR >60 The Glomerular Filtration Rate is a calculated parameterbased on serum Creatinine, patient age and sex. GFR valuesless than 60 mL/min/1.73 square meters are indicative ofChronic Kidney Disease. Values less than 15 mL/min/1.73square meters indicate Kidney failure. The calculation forGFR is based on the CKD-EPI (202) calculation. This formulais race indifferent and is the recommended formula for GFRby the National Kidney Foundation for Adults.The GFR will not calculate if the sex is unknown or if thepatient's age is <18 years. CREATININE (test code = CREAT) 0.6 MG/DL 0.6-1.0 N TOTAL PROTEIN (test code = PROT) 6.8 G/DL 6.4-8.2 N ALBUMIN (test code = ALB) 2.6 G/DL 3.4-5.0 L GLOBULIN (test code = GLOB) 4.2 GM/dL ALBUMIN/GLOBULIN RATIO (test code = A/G) 0.6 RATIO 1.2-2.2 L CALCIUM (test code = CA) 8.5 MG/DL 8.5-10.1 N BILIRUBIN TOTAL (test code = BILT) 0.8 MG/DL 0.0-1.0 N SGOT/AST (test code = AST) 50 Unit/L 15-37 H SGPT/ALT (test code = ALT) 85 Unit/L 30-65 H ALKALINE PHOSPHATASE TOTAL (test code = ALKP) 220 Unit/L 50-136 H PROTHROMBIN [id number] 04:19:00* Test Item Value Reference Range Interpretation [facility] (test code = PTP) 12.8 SECONDS 9.3-12.9 N INTERNATIONAL NORMAL RATIO (test code = INR) 1.16 INR Unit 0.8-1.2 N TARGET INR BY INDICATION Indication INR1. Prophylaxis of venous thrombosis 2.0 - 3.0 (orthopedic surgery), Prophylaxis of venous thrombosis (other than high-risk surgery), Treatment of Deep Vein Thrombosis/Pulmonary Embolism, Prevention of systemic embolism - Tissue heart valves, Acute Myocardial Infarction (to prevent systemic embolism), Valvular heart disease, Acute Myocardial Infarction (to prevent systemic embolism), Valvular heart disease, Atrial Fibrillation, Bileaflet mechanical valve in aortic position.2. Mechanical prosthetic valves (high risk), 2.5 - 3.5 Presence of Lupus Anticoagulant or Antiphospholipid Antibodies, Prevention of systemic embolism - Acute Myocardial Infarction (to prevent recurrent infarct). THROMBOPLASTIN TIME [id number] 04:19:00* Test Item Value Reference Range Interpretation Comme bradley [facility] THROMBOPLASTIN TIME PARTIAL (test code = PTT) 32.2 SECONDS 26-35 N CBC W/AUTO [id number] 04:12:00* Test Item Value Reference Range Interpretation [facility] WHITE BLOOD CELL (test code = WBC) 13.6 K/mm3 3.5-11.0 H RED BLOOD CELL (test code = RBC) 4.01 M/mm3 4.70-6.10 L HEMOGLOBIN (test code = HGB) 11.6 G/DL 10.4-14.9 N HEMATOCRIT (test code = HCT) 35.6 % 31.5-44.1 N MEAN CELL VOLUME (test code = MCV) 88.8 Fl 84.5-98.6 N MEAN CELL HGB (test code = MCH) 28.9 pg 27.0-34.2 N MEAN CELL HGB CONCETRATION (test code = MCHC) 32.6 G/DL 31.5-34.0 N RED CELL DISTRIBUTION WIDTH (test code = RDW) 13.3 SD 11.5-14.5 N PLATELET COUNT (test code = PLT) 270 K/mm3 150-450 N MEAN PLATELET VOLUME (test c ode = MPV) 9.40 fL 7.0-10.5 N NEUTROPHIL % (test code = NT%) 82.2 % 40-76 H IMMATURE GRANULOCYTE % (test code = IG%) 0.5 % 0.0-5.0 N LYMPHOCYTE % (test code = LY%) 9.3 % 20.5-51.1 L MONOCYTE % (test code = MO%) 6.7 % 1.7-9.3 N EOSINOPHIL % (test code = EO%) 1.0 % 0.0-6.0 N BASOPHIL % (test code = BA%) 0.3 % 0.0-2.0 N NUCLEATED RBC % (test code = NRBC%) 0.0 /100WBC% 0.0-1.0 N NEUTROPHIL # (test code = NT#) 11.2 K/mm3 1.8-7.6 H IMMATURE GRANULOCYTE # (test code = IG#) 0.07 x10 3/uL 0.00-0.03 H LYMPHOCYTE # (test code = LY#) 1.3 K/mm3 0.6-3.2 N MONOCYTE # (test code = MO#) 0.9 K/mm3 0.3-1.1 N EOSINOPHIL # (test code = EO#) 0.1 K/mm3 0.0-0.4 N BASOPHIL # (test code = BA#) 0.0 K/mm3 0.0-0.1 N NUCLEATED RBC # (test code = NRBC#) 0.0 K/mm3 0.0-0.[address] Abdomen pelvis w [id number] 23:25:16EXAM: CT abdomen pelvis with contrast HISTORY: 48 years-old Female; Abdominal pain, acute, nonlocalized. Historyof hysterectomy 06/23/2024. TECHNIQUE: Contiguous axial imaging from the level of the lung basesthrough the iliac crests was performed with contrast. Coronal and sagittalreconstructions were obtained. COMPARISON: CT abdomen pelvis with contrast from March 25, 2024 FINDINGS: LOWER THORAX: No pleural effusion, consolidation, or mass. No pericardialeffusion. LIVER: Smooth liver contour.Diffusely low background liver parenchymadensity suggests steatosis. GALLBLADDER AND BILIARY TREE: Status post cholecystectomy. No significantintrahepatic or extrahepatic biliary duct dilation. SPLEEN: No focal mass or splenomegaly. PANCREAS: No ductal dilation or calcifications. ADRENAL GLANDS: Symmetric adrenal glands without nodularity or thickening. GENITOURINARY: Nephrograms are symmetric. Punctate nonobstructive leftinferior pole calculus.No hydronephrosis or obstructive nephrolithiasis.Diffuse bladder wall thickening. PERITONEUM AND RETROPERITONEUM: Loculated peripherally enhancing airandfluid containing collection along the vaginal cuff measuring 6.9 x 2.5 cmwhich extends into the adnexa and involving ovaries (2, 108). There or fociof free intra-abdominal air , predominantly in the retroperitoneal regionand abdominal wall, likely from recent surgical intervention. A (2: 55-80).P resacral edema and pelvic fat inflammation. LYMPH NODES: No lymphadenopathy. GI TRACT: No dilated bowel, transition point, or evidence of obstruction. VESSELS: No calcified atherosclerosis in the aorta and iliac arteries. BONES AND SOFT TISSUES: No acute fracture, dislocation, or aggressiveosseous lesion.Myofascial air throughout the left abdominal wall, likelyfrom recent surgical intervention. T11 superior endplate chronic appearingmild compression.[facility]. Metabolic Panel (68925)2024-06-29 21:25:16* Test Item Value Reference Range Interpretation Comme nts NA (test code = 7340208214) 132 mmol/L 135-145 L K (test code = 1286776715) 4.4 mmol/L 3.5-5.0 CL (test code = 3890844573) 98 mmol/L 98-108 CO2 TOTAL (test code = 4274034699) 27 mmol/L 23-31 AGAP (test code = 0616883028) 7 2-16 BUN (test code = 2785473095) 28 mg/dL 7-23 H GLUCOSE (test code = 3664309675) 103 mg/dL 70-110 CREATININE (test code = 2160-0) 0.63 mg/dL 0.50-1.04 TOTAL BILI (test code = 1890673256) 0.7 mg/dL 0.1-1.1 CALCIUM (test code = 8132643990) 8.9 mg/dL 8.6-10.6 T PROTEIN (test code = 1064943474) 7.8 g/dL 6.3-8.2 ALBUMIN (test code = 1728162870) 4.1 g/dL 3.5-5.0 ALK PHOS (test code = 8188733280) 284 U/L 34-122 H ALTv (test code = 1742-6) 110 U/L 5-35 H AST(SGOT) (test code = 0395145847) 68 U/L 13-40 H eGFR (test code = 75124-2) 108.9 mL/min/1.73m2 CKD-EPI eGFR (2020). Assuming creatinine has been stable day-to-day for at least three months, the eGFR indicates Category G1 (>= 90 mL/min/1.73 m2) Lab Interpretation (test code = 07197-5) Abnormal [facility] 21:25:16* Test Item Value Reference Range Interpretation Comme nts LIPASE (test code = 5708968324) 122 U/L 0-220 Lab Interpretation (test cod e = 02742-0) Normal [facility] with [id number] 21:11:16* Test Item Value Reference Range Interpretation Comme nts WBC (test code = 6690-2) 15.60 4.30-11.10 H RBC (test code = 789-8) 4.65 3.93-5.25 HGB (test code = 718-7) 13.6 g/dL 11.6-15.0 HCT (test code = 4544-3) 40.9 % 35.7-45.2 MCV (test code = 787-2) 88.0 fL 80.6-95.5 MCH (test code = 785-6) 29.2 pg 25.9-32.8 MCHC (test code = 786-4) 33.3 g/dL 31.6-35.1 RDW-SD (test code = 55182-4) 43.7 fL 39.0-49.9 RDW-CV (test code = 788-0) 13.5 % 12.0-15.5 PLT (test code = 777-3) 312 166-358 MPV (test code = 09452-9) 9.6 fL 9.5-12.9 NRBC/100 WBC (test code = 0366507247) 0.0 0.0-10.0 NRBC x10^3 (test code = 5837788103) See_Comment [Automated message] The system which generated this result transmitted reference range: 10*3/?L. The reference range was not used to interpret this result as normal/abnormal. GRAN MAT (NEUT) % (test code = 770-8) 86.1 % IMM GRAN % (test code = 0199704212) 0.40 % LYMPH % (test code = 736-9) 5.2 % MONO % (test code = 5905-5) 7.4 % EOS % (test code = 713-8) 0.6 % BASO % (test code = 706-2) 0.3 % GRAN MAT x10^3(ANC) (test code = 3723561043) 13.44 10*3/uL 1.88-7.09 H IMM GRAN x10^3 (test code = 1423661179) 0.06 10*3/uL 0.00-0.06 LYMPH x10^3 (test code = 731-0) 0.81 10*3/uL 1.32-3.29 L MONO x10^3 (test code = 742-7) 1.15 10*3/uL 0.33-0.92 H EOS x10^3 (test code = 711-2) 0.09 10*3/uL 0.03-0.39 BASO x10^3 (test code = 704-7) 0.05 10*3/uL 0.01-0.07 Lab Interpretation (test code = 96553-2) [facility] Test Item Value Reference Range Interpretation Comme nts SURGICAL (test code = SR) -----RUN DATE: 06/26/24 [facility] LAB PAGE 1 RUN TIME: 1540 Specimen Inquiry RUN USER: INTERFACE -----PATIENT: BRICE DELATORRE LOC: [facility] #: [id number] AGE/SX: 48/F ROOM: RE06/23/24REG DR: Saulo Montenegro MD : 74 BED: DIS: STATUS: [facility] TLOC: ----- SPEC #: [id number]:PMC:[id number] RECD: 06/24/24 STATUS: [facility] RE #: [id number] GISELE: 06/23/24-[address] [facility] [address]: Saulo Montenegro MD ENTERED: 06/24/24 SP TYPE: SURGICAL [facility] DR: ORDERED: [id number], ANATOMIC SPEC, SPECIMEN TRACK PROCEDURES: [id number] (06/26/24-153) SPECIMEN TRACK (06/24/24) TISSUES: A. UTERUS - UTERUS, CERVIX, BILATERAL FALLOPIAN TUBES, LEFT OVARY FINAL DIAGNOSIS UTERUS, CERVIX, BILATERAL FALLOPIAN TUBES AND LEFT OVARY, TOTAL HYSTERECTOMY, BILATERALSALPINGECTOMY AND LEFT OOPHORECTOMY:- Cervix without dysplasia.- A Benign endocervical polyp, 6 mm.- Proliferative endometrium.- Leiomyoma, 5 mm in greatest dimension.- Adenomyosis.- Unremarkable serosa. - Left ovary with cystic follicles.- Bilateral fallopian tubes with endosalpigiosis. - Paratubal cysts.- Specimen 147 g. GROSS DESCRIPTION Uterus with left ovary and bilateral fallopian tubes. Received is a uterus with attachedleft ovary and fallopian tube. The uterus measures cornu to cornu 6.5 cm, posterior toanterior 5 cm and fundus to cervix 10.5 cm. The uterus weighs 147 g. The cervix measures4.2 x 3.5 cm and has a cervical os diameter of 1.5 cm. The cervical canal is a pink andsmooth measuring 2.5 cm in length. The endometrial cavity measures 3.7 x 3 cm and coveredby endometrium of 0.3 cm in thickness. The uterine wall has a maximum thickness of 2.5cm. There is a well circumscribed nodule measuring 0.5 x 0.5 x 0 4 cm present. The serosal surface is smooth. There are nabothian cysts present. The left ovary measures4.5 x 4 x 3 cm. Cut sections reveal a hemorrhagic fluid-filled cystic cavity. The cavityis lined by hemorrhage and no papillary excrescences are identified. The left fallopiantube with fimbriated end measures 4.5 cm in length and has a diameter of 0.8 cm. Thedetached right fallopian tube with fimbriated end measures 2 cm in length and has adiameter of 0.6 cm. A1 posterior cervixA2 anterior cervixA3 posterior endomyometriumA4 anterior endomyometrium CONTINUED ON NEXT PAGE -----RUN DATE: 06/26/24 [facility] PAGE 2 RUN TIME: 1540 Specimen Inquiry RUN USER: INTERFACE -----SPEC #: 25:[facility]:SR57 PATIENT: BRICE DELATORRE #[id number] (Continued) GROSS DESCRIPTION (Continued) A5 additional anterior endomyometriumA6 uterine wall noduleA7 posterior reflectionA8-A10 section of left ovarian cyst A11 left fallopian tube cut surface with entire bisected fimbriated endA12 right fallopian tube cut surface with entire bisected fimbriated end Technical tissue processing and slide preparation performed at [facility],[id number] , [place] [address] MICROSCOPIC DESCRIPTION Microscopic examination is performed and the findings are incorporated into the finaldiagnosis. Please see diagnosis for findings. Signed SIGNATURE ON FILE Dany Quintero X 06/26/24 1540 ----- END OF REPORT URINALYSIS [id number] 14:20:00* Test Item Value Reference Range Interpretation Comme nts UA GLUCOSE DIPSTICK (test co de = DGLUU) NEGATIVE mg/dL NEGATIVE UA BILIRUBIN DIPSTICK (test code = BILU) NEGATIVE NEGATIVE UA KETONE DIPSTICK (test cod e = KETU) NEGATIVE NEGATIVE UA SPECIFIC GRAVITY (test co de = SGU) 1.010 1.005-1.015 UA BLOOD DIPSTICK (test code = ANMOL) NEGATIVE NEGATIVE UA PH DIPSTICK (test code = NADIA) 5.5 5.0-7.0 UA PROTEIN DIPSTICK (test co de = PROU) NEGATIVE NEGATIVE UA UROBILINIOGEN DIPSTICK (test code = URO) NORMAL NORMAL UA NITRITE DIPSTICK (test co de = JERONIMO) NEGATIVE NEGATIVE UA LEUKOCYTE ESTERASE DIPSTI CK (test code = LEUU) NEGATIVE NEGATIVE Urine Specimen Type: Clean CatchHCG SERUM [id number] 14:08:00* Test Item Value Reference Range Interpretation Comme nts HCG SERUM QUAL (test code = HCGQL) SERUM NEGATIVE SCREEN NEGATIVE PROTHROMBIN [id number] 13:57:00* Test Item Value Reference Range Interpretation Comme nts PT PATIENT (test code = PTP) 10.3 SECONDS 9.3-12.9 N INTERNATIONAL NORMAL RATIO (test code = INR) 0.94 INR Unit 0.8-1.2 N TARGET INR BY INDICATION Indication INR1. Prophylaxis of venous thrombosis 2.0 - 3.0 (orthopedic surgery), Prophylaxis of venous thrombosis (other than high-risk surgery), Treatment of Deep Vein Thrombosis/Pulmonary Embolism, Prevention of systemic embolism - Tissue heart valves, Acute Myocardial Infarction (to prevent systemic embolism), Valvular heart disease, Acute Myocardial Infarction (to prevent systemic embolism), Valvular heart disease, Atrial Fibrillation, Bileaflet mechanical valve in aortic position.2. Mechanical prosthetic valves (high risk), 2.5 - 3.5 Presence of Lupus Anticoagulant or Antiphospholipid Antibodies, Prevention of systemic embolism - Acute Myocardial Infarction (to prevent recurrent infarct). THROMBOPLASTIN TIME [id number] 13:57:00* Test Item Value Reference Range Interpretation Comme nts THROMBOPLASTIN TIME PARTIAL (test code = PTT) 35.7 SECONDS 26-35 H CBC W/O [id number] 13:51:00* Test Item Value Reference Range Interpretation Comme nts WHITE BLOOD CELL (test code = WBC) 6.5 K/mm3 3.5-11.0 N RED BLOOD CELL (test code = RBC) 4.92 M/mm3 4.70-6.10 N HEMOGLOBIN (test code = HGB) 14.5 G/DL 10.4-14.9 N HEMATOCRIT (test code = HCT) 44.5 % 31.5-44.1 H MEAN CELL VOLUME (test code = MCV) 90.4 Fl 84.5-98.6 N MEAN CELL HGB (test code = MCH) 29.5 pg 27.0-34.2 N MEAN CELL HGB CONCETRATION ( test code = MCHC) 32.6 G/DL 31.5-34.0 N RED CELL DISTRIBUTION WIDTH (test code = RDW) 13.7 SD 11.5-14.5 N PLATELET COUNT (test code = PLT) 247 K/mm3 150-450 N MEAN PLATELET VOLUME (test c ode = MPV) 9.40 fL 7.0-10.5 N POCT Urinalysis W Specific [id number] 22:16:00* Test Item Value Reference Range Interpretation Comme nts POCT U SP GRAV (test code = 3255) 1.020 mg/dl 1.005-1.025 POCT PH U (test code = 3254) 5 mg/dl 5-8 POCT U LEUK EST (test code = 3263) 2+ Negative - Negative POCT U NIT (test code = 3262) positive Negative - Negati ve POCT U PROT (test code = 3259) 30+ Negative - Negative POCT U GLU (test code = 3256) normal Negative - Negati ve POCT U KETONE (test code = 3258) negative Negative - Negative POCT U UROBILI (test code = 3260) 1 mg/dl 0.2-1 POCT U BILI (test code = 3261) negative Negative - Negative POCT U BLD (test code = 3257) 250 Negative - Negati ve POCT U COLOR (test code = 3266) dark yellow POCT U APPEAR (test code = 3267) hazy [facility] Pathology biopsy [id number] 00:00:00Clinical InformationPathologistReport NotesA SourceA Gross DescriptionA DiagnosisB SourceB Gross DescriptionB DiagnosisPrivia MedicalUS OVARY TORSION 2024-03-26 03:31:57EXAM: US OVARY TORSION HISTORY: 48 years-old Female; Provided indication: r/o torsion, L pelvicpain. LMP = not providedPregnancy test = Negative. TECHNIQUE: Transabdominal and transvaginal ultrasound imaging and colorDoppler evaluation of the pelvis was performed. Spectral Doppler evaluationof theovaries was performed. [employer] Manager images were obtained for therecord. COMPARISON: Same day CT abdomen pelvis. Pelvic ultrasound obtained on06/20/2023 FINDINGS: Uterus: The uterus measures 9.9 x 5.0 x 6.0 cm. The endometrium is normal inappearance and is 0.3 cm thick. The myometrium is heterogenous with a 1.4cm fibroid at the anterior fundus and a possible 1.0 cm fibroid at theposterior uterinebody. Slightly complex nabothian cysts are present at thecervix. Right Adnexa:Ovary: The right ovary measures 2.7 x 1.2 x 1.8 cm with a volume of 2.1 ml.The right ovary is unremarkable. Normal arterial and venous waveforms arevisualized. Normal flow is seen on color Doppler. Left Adnexa:Ovary: The left ovary measures 3.5 x 1.7 x 2.0 cm with a volume of 6.3 ml.A normal follicle is seen..Normal arterial and venous waveforms arevisualized. Normal flow is seen on color Doppler. Cul-de-sac: No free fluid is present.[facility] 2024-03-26 02:27:24HISTORY: ?LLQ abdominal pain COMPARISON:none TECHNIQUE:CT scan of the abdomen and pelvis performed.Contiguous axial CT imageswere obtained after administration of intravenous contrast. ?CT scan doneaccording to [facility]. Technical quality: Technical quality: adequate. FINDINGS: 1 cm nodule in the left lung base is incompletely evaluated. Chest CTrecommended. Liver is fatty infiltrated. Gallbladder removed. No biliary dilatation. Noinflammation around the pancreas. Pancreas divisum. Spleen normal in size. No adrenal nodule. Symmetric nephrograms. No hydronephrosis. The urinarybladder is unremarkable. Trace, physiologic free fluid seen in the pelvis.Tampon in vagina. 2.5 cm left ovary cyst. No bowel obstruction or inflammation. The appendix is normal. The bones and soft tissues unremarkable.[facility]woodBASIC METABOLIC PANEL (NA, K, CL, CO2, GLUCOSE, BUN, CREATININE, CA)2024-03-26 01:20:23* Test Item Value Reference Range Interpretation Comme nts NA (test code = 4409132928) 136 mmol/L 135-145 K (test code = 0238646823) 4.0 mmol/L 3.5-5.0 CL (test code = 1900673229) 104 mmol/L 98-108 CO2 TOTAL (test code = 4080519647) 24 mmol/L 23-31 AGAP (test code = 7702501389) 8 2-16 BUN (test code = 1347313656) 18 mg/dL 7-23 GLUCOSE (test code = 6913986578) 92 mg/dL 70-110 CREATININE (test code = 2160-0) 0.72 mg/dL 0.50-1.04 CALCIUM (test code = 7423199715) 8.8 mg/dL 8.6-10.6 eGFR (test code = 48916-5) 102.6 mL/min/1.73m2 CKD-EPI eGFR (20 21). Assuming creatinine has been stable day-to-day for at least three months, the eGFR indicates Category G1 (>= 90 mL/min/1.73 m2) [facility] WITH [id number] 01:06:53* Test Item Value Reference Range Interpretation Comme nts WBC (test code = 6690-2) 6.88 4.30-11.10 RBC (test code = 789-8) 4.67 3.93-5.25 HGB (test code = 718-7) 14.5 g/dL 11.6-15.0 HCT (test code = 4544-3) 44.1 % 35.7-45.2 MCV (test code = 787-2) 94.4 fL 80.6-95.5 MCH (test code = 785-6) 31.0 pg 25.9-32.8 MCHC (test code = 786-4) 32.9 g/dL 31.6-35.1 RDW-SD (test code = 76583-7) 42.9 fL 39.0-49.9 RDW-CV (test code = 788-0) 12.3 % 12.0-15.5 PLT (test code = 777-3) 303 166-358 MPV (test code = 59730-5) 9.7 fL 9.5-12.9 NRBC/100 WBC (test code = 3205826022) 0.0 0.0-10.0 NRBC x10^3 (test code = 2337511208) See_Comment [Automated me ssage] The system which generated this result transmitted reference range: 10*3/?L. The reference range was not used to interpret this result as normal/abnormal. GRAN MAT (NEUT) % (test code = 770-8) 65.4 % IMM GRAN % (test code = 2111150915) 0.30 % LYMPH % (test code = 736-9) 23.5 % MONO % (test code = 5905-5) 8.0 % EOS % (test code = 713-8) 1.9 % BASO % (test code = 706-2) 0.9 % GRAN MAT x10^3(ANC) (test code = 0520786296) 4.50 10*3/uL 1.88-7.09 IMM GRAN x10^3 (test code = 3039678381) 0.00-0.06 LYMPH x10^3 (test code = 731-0) 1.62 10*3/uL 1.32-3.29 MONO x10^3 (test code = 742-7) 0.55 10*3/uL 0.33-0.92 EOS x10^3 (test code = 711-2) 0.13 10*3/uL 0.03-0.39 BASO x10^3 (test code = 704-7) 0.06 10*3/uL 0.01-0.07 [facility]woodPOCT [id number] 00:45:00* Test Item Value Reference Range Interpretation Comme nts POCT PREG (test code = 1605) Negative On board controls acceptable with C Line (test code = 3574) Yes POCT PREG LOT # (test code = 3575) [id number] POCT PREG TEST DATE ( test code = 3576) 03-08-2025 Lab Interpretation (test cod e = 68125-9) Normal [facility]woodpregnancy test, [id number] 15:35:20* Test Item Value Reference Range Interpretation Comme nts HCG (test code = HCG) negative [facility] Pathology biopsy [id number] 00:00:00Clinical InformationPathologistA SourceA Gross DescriptionA DiagnosisA CommentB SourceB Gross DescriptionB DiagnosisB CommentPrivia Medicalpregnancy test, urine 2024-03-06 10:09:00* Test Item Value Reference Range Interpretation Comme nts HCG (test code = HCG) negative Priv[facility] Medicalpregnancy test, [id number] 16:02:00* Test Item Value Reference Range Interpretation Comme nts HCG (test code = HCG) negative [facility] MedicalCBC panel - Blood by Automated [id number] 00:00:00* Test Item Value Reference Range Interpretation Comme nts WBC (test code = WBC) 8.3 10 3.7-12.0 RBC (test code = RBC) 4.48 10 3.60-5.50 HGB (test code = HGB) 13.8 g/dL 11.5-15.6 HCT (test code = HCT) 42.7 % 34.5-46.5 MCV (test code = MCV) 95.3 um 80.0-102.0 MCH (test code = MCH) 30.7 pg 25.0-34.1 MCHC (test code = MCHC) 32.2 g/dL 29.0-35.0 RDW (test code = RDW) 15.8 % 10.9-16.9 plt (test code = plt) 319 10 136-392 MPV (test code = MPV) 9.1 um 7.4-11.1 gran % (test code = gran %) 75.4 % 36.0-78.0 lymph % (test code = lymph %) 19.6 % 12.0-48.0 mono % (test code = mono %) 3.6 % 0.0-13.0 eos % (test code = eos %) 1 % 0-8 baso % (test code = baso %) 1 % 0-2 gran # (test code = gran #) 6.2 10 1.2-6.8 lymph # (test code = lymph #) 1.6 10 1.2-3.2 mono # (test code = mono #) 0.3 10 0.3-0.8 eos # (test code = eos #) 0.1 10 0.0-0.4 baso # (test code = baso #) 0.0 10 0.0-0.2 [facility] MedicalThyrotropin [Units/volume] in Serum or [id number] 00:00:00* Test Item Value Reference Range Interpretation Comme nts TSH (test code = TSH) 1.640 uIU/mL 0.500-4.530 [facility] MedicalFollitropin [Units/volume] in Serum or [id number] 00:00:00* Test Item Value Reference Range Interpretation Comme nts FSH (test code = FSH) 6.2 mIU/mL Priv[facility] MedicalChlamydia trachomatis and Neisseria gonorrhoeae rRNA panel - Specimen by CY with probe [id number] 00:00:00* Test Item Value Reference Range Interpretation Comme nts aptima combo 2 swab (CT) (te st code = aptima combo 2 swab (CT)) CT neg negative aptima combo 2 swab (GC) (te st code = aptima combo 2 swab (GC)) GC neg negative Priv[facility] Medicalpap, LB + [id number] 00:00:00* Test Item Value Reference Range Interpretation Comme nts LMP date: (test code = LMP date:) 12/03/2023 Pap, liquid-based (test code = Pap, liquid-based) AGC nilm A source (liquid-based cytology): (test code = source (liquid-based cytology):) CERVICAL (WHICH INCLUDES ENDOCERVICAL) HPV high risk DNA (non 16/18) (test code = HPV high risk DNA (non 16/18)) NOT DETECTED not detected HPV high risk DNA type 16 (test code = HPV high risk DNA type 16) NOT DETECTED not detected HPV high risk DNA type 18 (test code = HPV high risk DNA type 18) DETECTED not detected A Privia MedicalCT ABDOMEN PELVIS W [id number] 02:07:05HS:Y Indication: Flank pain, kidney stone suspected LLQ abdominal pain ? Comparison: CT abdomen andpelvis report 06/28/2023 RL: [id number] ORDERING PHYSICIAN: ?CAREN PASTRANA TECHNIQUE: Axial CT images ofthe abdomen and pelvis were performed with ivcontrast. Sagittal and coronal reformats were created.Dose reductiontechniques were used (ALARA). FINDINGS: ?Bilateral lung bases are clear. Abdomen/pelvi s:Liver: Normal in attenuation. Gallbladder: Gallbladder is surgically absent. Spleen: Normal. Pancreas: Normal. Adrenal glands: Normal. Kidneys: Punctate nonobstructive calculi in the left kidney. Vasculature: Abdominal aorta is normal in caliber. Bowel: No evidence of bowel obstruction.The appendix is visualized and isnot inflamed. Bladder/reproductive organs: Urinary bladder is unremarkable. Trace fluidin the pelvis. Bone and soft tissue: No acute osseous abnormality is noted.[facility]wood[facility] Metabolic Panel 2024-01-19 01:56:55* Test Item Value Reference Range Interpretation Comme nts NA (test code = 0457535212) 138 mmol/L 135-145 K (test code = 1890900548) 4.2 mmol/L 3.5-5.0 CL (test code = 7561430433) 103 mmol/L 98-108 CO2 TOTAL (test code = 5177026383) 26 mmol/L 23-31 AGAP (test code = 6132509208) 9 2-16 BUN (test code = 8060764568) 21 mg/dL 7-23 GLUCOSE (test code = 0810250451) 94 mg/dL 70-110 CREATININE (test code = 2160-0) 0.82 mg/dL 0.50-1.04 TOTAL BILI (test code = 1977780407) 1.0 mg/dL 0.1-1.1 CALCIUM (test code = 2893565159) 9.2 mg/dL 8.6-10.6 T PROTEIN (test code = 6700685453) 8.8 g/dL 6.3-8.2 H ALBUMIN (test code = 0383188289) 4.5 g/dL 3.5-5.0 ALK PHOS (test code = 7795059028) 72 U/L 34-122 ALTv (test code = 1742-6) 122 U/L 5-35 H AST(SGOT) (test code = 9930937042) 77 U/L 13-40 H eGFR (test code = 00523-8) 87.8 mL/min/1.73m2 CKD-EPI eGFR (2020). Assuming creatinine has been stable day-to-day for at least three months, the eGFR indicates Category G2 (60 - 89 mL/min/1.73 m2) Lab Interpretation (test code = 43596-0) Abnormal [facility] KingwoodLipase, [id number] 01:56:55* Test Item Value Reference Range Interpretation Comme nts LIPASE (test code = 8833329661) 328 U/L 0-220 H Lab Interpretation (test cod e = 63429-9) [facility]normal [facility] with [id number] 01:47:54* Test Item Value Reference Range Interpretation Comme nts WBC (test code = 6690-2) 7.45 4.30-11.10 RBC (test code = 789-8) 4.75 3.93-5.25 HGB (test code = 718-7) 14.6 g/dL 11.6-15.0 HCT (test code = 4544-3) 43.9 % 35.7-45.2 MCV (test code = 787-2) 92.4 fL 80.6-95.5 MCH (test code = 785-6) 30.7 pg 25.9-32.8 MCHC (test code = 786-4) 33.3 g/dL 31.6-35.1 RDW-SD (test code = 29131-9) 44.8 fL 39.0-49.9 RDW-CV (test code = 788-0) 13.2 % 12.0-15.5 PLT (test code = 777-3) 296 166-358 MPV (test code = 90358-1) 9.3 fL 9.5-12.9 L NRBC/100 WBC (test code = 4820399323) 0.0 0.0-10.0 NRBC x10^3 (test code = 1010790834) See_Comment [Automated messa ge] The system which generated this result transmitted reference range: 10*3/?L. The reference range was not used to interpret this result as normal/abnormal. GRAN MAT (NEUT) % (test code = 770-8) 69.9 % IMM GRAN % (test code = 5813474111) 0.30 % LYMPH % (test code = 736-9) 20.9 % MONO % (test code = 5905-5) 6.8 % EOS % (test code = 713-8) 1.6 % BASO % (test code = 706-2) 0.5 % GRAN MAT x10^3(ANC) (test code = 6780994218) 5.20 10*3/uL 1.88-7.09 IMM GRAN x10^3 (test code = 5424837570) 0.00-0.06 LYMPH x10^3 (test code = 731-0) 1.56 10*3/uL 1.32-3.29 MONO x10^3 (test code = 742-7) 0.51 10*3/uL 0.33-0.92 EOS x10^3 (test code = 711-2) 0.12 10*3/uL 0.03-0.39 BASO x10^3 (test code = 704-7) 0.04 10*3/uL 0.01-0.07 Lab Interpretation (test code = 74975-3) [id number] 22:34:00* Test Item Value Reference Range Interpretation Comme nts POCT PREG (test code = 1605) Negative On board controls acceptable with C Line (test code = 3574) Yes POCT PREG LOT # (test code = 3575) [id number] POCT PREG TEST DATE ( test code = 3576) 04/15/2025 Lab Interpretation (test cod e = 84825-9) Normal [facility] LUMBAR SPINE WO [id number] 16:57:09 EXAM: CT LUMBAR SPINE WO CONTRAST HISTORY: Compression fracture, lumbar. TECHNIQUE: Routine unenhanced CT of the lumbar spine was performed. Coronaland sagittal reformats were obtained. COMPARISON: CT of the abdomen and pelvis 06/28/2023. FINDINGS: The vertebral bodies are normal in height and alignment. No acute fractureor subluxation identified. Disc spaces are maintained. Mild facet arthrosis is noted at L4-L5 andL5-S1. The paraspinal soft tissues are unremarkable. The visualized sacrum and pelvic bones are unremarkable. Few punctate renal calculi are noted bilaterally. Please refer toconcurrently performed, separately dictated CT abdomen and pelvis forbetter assessment of the intra-abdominal structures.[facility] ABDOMEN PELVIS WO [id number] 16:47:11CT Abdomen and Pelvis without contrast. CLINICAL HISTORY: ?FLANK PAIN. R/O RENAL STONES. TECHNIQUE:Multidetector helical CT acquisition was obtained from the lungbases to the greater trochanters without oral and IV contrast. ?The imageswere reviewed in lung, bone, and soft tissue windows. FINDINGS: ?Absence of intravenous contrast limits evaluation of the solidorgans. Evaluation of the bowel is also limited by lack of oral contrast.Comparison has been made with 12/20/2022 CT studies. Lower lungs: Minimal fibrosis in the left lower lung and left lingula. Nopleural effusion or pericardial effusion. Probable small hiatal hernia. Liver, Gallbladder and Spleen: Diffuse steatosis of the liver parenchyma.Liver is 14.7 centimeters and spleen is 8.8 x 3.1 cm in size. Gallbladderhas been removed. Biliary ducts and the pancreatic duct appear of normalsize. Peritoneum: ?No free air or free fluid. No lymphadenopathy. Pancreas and Adrenals: ?Unremarkable pancreas and adrenal glands. Kidneys and Ureters: The right kidney contains 2 stones, 1 to 2 mm size inthe lower pole and faint increased attenuation without any well formedstone in the middle portion. Left kidney contains at least 5 stones rang ingfrom 2 mm to 4 mm in size. No hydroureter or hydronephrosis. ? Vessels: Minimal atherosclerosis in the abdominal aorta. Retroperitoneum: No abnormal fluid. Subcentimeter lymph nodes are seen intheretroperitoneum surrounding the aorta without unchanged since December 2022ud. Bowel: ?Constipation noted. Normal appendix is visualized. Bladder ?and Reproductive Organs: Vaginal tampon is in place. No grosspathology is seen in the uterus or adnexa. Urinary bladder is poorlydistended. Bones: ?Old trauma to upper plate of T11. No acute bony pathology. Soft tissues: Unremarkable. CONCLUSION:1. Bilateral kidney stones without any hydronephrosis or obstructing stonesin the ureters.2. S/P [facility]olecystectomy.[facility] [id number] 15:46:00* Test Item Value Reference Range Interpretation Comme nts POCT PREG (test code = 1605) Negative On board controls acceptable with C Line (test code = 3574) Yes POCT PREG LOT # (test code = 3575) [id number] POCT PREG TEST DATE ( test code = 3576) 10-09-2024 Lab Interpretation (test cod e = 47195-3) Normal [facility] GALL [id number] 03:09:38Ordering Physician: RICH MONTILLA Clinical Indication: RUQ pain, postprandial, eval GB Additional Clinical Information: Technical Limitations: None Comparison: None Technique: Gallbladder ultrasound Findings: Pancreas is normal in appearance. Dilated IVC normal in caliber.Common bile duct is 4.6 mm.Main portal vein is 12 mm with hepatopedalflow. Liver is normal in size and echogenicity. Gallbladder is absent.[facility]. METABOLIC PANEL ([id number]) 2023-06-28 06:49:55* Test Item Value Reference Range Interpretation Comme nts NA (test code = 7406338286) 139 mmol/L 135-145 K (test code = 0921104789) 4.1 mmol/L 3.5-5.0 CL (test code = 8105316341) 107 mmol/L 98-108 CO2 TOTAL (test code = 8899273215) 23 mmol/L 23-31 AGAP (test code = 7915124496) 9 2-16 BUN (test code = 8490528903) 19 mg/dL 7-23 GLUCOSE (test code = 2214714029) 89 mg/dL 70-110 CREATININE (test code = 0906137760) 0.55 mg/dL 0.50-1.04 TOTAL BILI (test code = 8338029658) 0.6 mg/dL 0.1-1.1 CALCIUM (test code = 9680706579) 8.8 mg/dL 8.6-10.6 T PROTEIN (test code = 8376040807) 7.8 g/dL 6.3-8.2 ALBUMIN (test code = 8239689683) 4.0 g/dL 3.5-5.0 ALK PHOS (test code = 7803116166) 77 U/L 34-122 ALTv (test code = 1742-6) 52 U/L 5-35 H AST(SGOT) (test code = 7467568946) 45 U/L 13-40 H eGFR (test code = 26525-4) 113.2 mL/min/1.73m2 CKD-EPI eGFR (2020). Assuming creatinine has been stable day-to-day for at least three months, the eGFR indicates Category G1 (>= 90 mL/min/1.73 m2) Lab Interpretation (test code = 67051-1) Abnormal [facility] WITH [id number] 06:41:14* Test Item Value Reference Range Interpretation Comme nts WBC (test code = 6690-2) 8.39 See_Comment [Automated messa ge] The system which generated this result transmitted reference range: 4.30 - 11.10 10*3/?L. The reference range was not used to interpret this result as normal/abnormal. RBC (test code = 789-8) 4.72 See_Comment [Automated messa ge] The system which generated this result transmitted reference range: 3.93 - 5.25 10*6/?L. The reference range was not used to interpret this result as normal/abnormal. HGB (test code = 718-7) 13.7 g/dL 11.6-15.0 HCT (test code = 4544-3) 41.2 % 35.7-45.2 MCV (test code = 787-2) 87.3 fL 80.6-95.5 MCH (test code = 785-6) 29.0 pg 25.9-32.8 MCHC (test code = 786-4) 33.3 g/dL 31.6-35.1 RDW-SD (test code = 13680-9) 46.5 fL 39.0-49.9 RDW-CV (test code = 788-0) 14.6 % 12.0-15.5 PLT (test code = 777-3) 322 See_Comment [Automated messa ge] The system which generated this result transmitted reference range: 166 - 358 10*3/?L. The reference range was not used to interpret this result as normal/abnormal. MPV (test code = 34146-7) 9.1 fL 9.5-12.9 L NRBC/100 WBC (test code = 1683901393) 0.0 See_Comment [Automated Sopogy ssage] The system which generated this result transmitted reference range: 0.0 - 10.0 /100 WBCs. The reference range was not used to interpret this result as normal/abnormal. NRBC x10^3 (test code = 6401231591) See_Comment [Automated messa ge] The system which generated this result transmitted reference range: 10*3/?L. The reference range was not used to interpret this result as normal/abnormal. GRAN MAT (NEUT) % (test code = 770-8) 66.2 % IMM GRAN % (test code = 0282868263) 0.40 % LYMPH % (test code = 736-9) 21.7 % MONO % (test code = 5905-5) 8.7 % EOS % (test code = 713-8) 2.3 % BASO % (test code = 706-2) 0.7 % GRAN MAT x10^3(ANC) (test code = 4354807297) 5.56 10*3/uL 1.88-7.09 IMM GRAN x10^3 (test code = 2126854895) 0.03 10*3/uL 0.00-0.06 LYMPH x10^3 (test code = 731-0) 1.82 10*3/uL 1.32-3.29 MONO x10^3 (test code = 742-7) 0.73 10*3/uL 0.33-0.92 EOS x10^3 (test code = 711-2) 0.19 10*3/uL 0.03-0.39 BASO x10^3 (test code = 704-7) 0.06 10*3/uL 0.01-0.07 Lab Interpretation (test code = 10014-6) Abnormal [facility] PELVIS COMPLETE WITH [id number] 01:02:52Exam: Pelvic and Transvaginal Ultrasound, 06/20/2023 5:15 PM. Ordering Physician: JENNY KENDRICK. History: ?Abnormal vaginal bleeding. Comparison: None. Technique: Multiple grayscale, color Doppler, and pulsed Doppler ultrasoundimages of the pelvis were obtained transabdominally. ?Transvaginal imageswere obtained to better evaluate the adnexa and endometrium. Technical Quality: Adequate. Findings: Uterus is anteverted and measures 8.0 x 4.6 x 5.3 cm in size. Endometriummeasures 7 mm in thickness. Hypoechoic structures in the cervix likelyrepresent nabothian cysts. Right ovary measures 3.8 x 2.8 x 3.3 cm in size. Hypoechoic, ellipticalstructure in the right ovary measures 3.1 x 3.0 x 3.0 cm,without internalcolor Doppler flow. Left ovary measures 3.4 x 2.0 x 2.7 cm in size.Slightly complex, septated hypoechoic structure in the left ovary measures1.7 x 1.8 x 1.9 cm, then; Doppler flow. ?Normal color Doppler flow andpulsed Doppler flow are demonstrated in both ovaries. There is no pelvicfree fluid.[facility]. METABOLIC PANEL ([id number])2023-06-21 00:42:09* Test Item Value Reference Range Interpretation Comme nts NA (test code = 9912263183) 141 mmol/L 135-145 K (test code = 7327020855) 4.1 mmol/L 3.5-5.0 CL (test code = 8922798168) 111 mmol/L 98-108 H CO2 TOTAL (test code = 6405844698) 23 mmol/L 23-31 AGAP (test code = 5868857665) 7 2-16 BUN (test code = 9492354177) 20 mg/dL 7-23 GLUCOSE (test code = 5240097964) 103 mg/dL 70-110 CREATININE (test code = 5261804706) 0.66 mg/dL 0.50-1.04 TOTAL BILI (test code = 5213566423) 0.6 mg/dL 0.1-1.1 CALCIUM (test code = 0859613216) 8.9 mg/dL 8.6-10.6 T PROTEIN (test code = 8857726248) 8.4 g/dL 6.3-8.2 H ALBUMIN (test code = 3872133947) 4.3 g/dL 3.5-5.0 ALK PHOS (test code = 0577998689) 89 U/L 34-122 ALTv (test code = 1742-6) 58 U/L 5-35 H AST(SGOT) (test code = 2094991218) 56 U/L 13-40 H eGFR (test code = 88734-3) 108.4 mL/min/1.73m2 CKD-EPI eGFR (2020). Assuming creatinine has been stable day-to-day for at least three months, the eGFR indicates Category G1 (>= 90 mL/min/1.73 m2) Lab Interpretation (test code = 17718-6) Abnormal [facility] WITH [id number] 00:29:04* Test Item Value Reference Range Interpretation Comme nts WBC (test code = 6690-2) 13.44 See_Comment H [Automated message] The system which generated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 Pain Ringer finger to left hand injury Sarah Oneill LVN T [facility] 2024-10-24 00:19:21 Pt given printed and verbal discharge instructions regarding abd pain, bloating, UTI, and encouraged hydration. Prescription x1 sent to pharmacy Discussed antibiotic therapy and to take until all completed unless adverse reaction occurs - if occurs, discontinue medication and follow up with pcp/seek medical attention Pt verbalized understanding of instructions, pt awake alert oriented, resp reg unlabored, skin w/d, color appropriate for race, moves all ext well,pt encouraged to follow up with pcp and gastroenterology Advised to seek medical attention for new/prolonged/worsening of symptoms, Symptoms difficulty urinating No adverse reaction to meds given in ER noted upon discharge PIV d'cd, dressing to site, catheter in tact. Awake, alert oriented, resp reg unlabored, skin w/d, pt leaving ambulatory without assist, in no apparent distress, T [facility] 2024-10-23 20:11:16 Pt arrived ambulatory without assist. Pt with her, okay to discuss medical care in front of him. Pt c/o burning in LUQ of abd and bloating T Paresh Duff RN [facility] 2024-10-20 13:21:31 Chief Complaint Patient presents with Follow-up F/u left ankle pain pt states still has pain on left ankle inner part [phone] (home) Bren Almanza MA [facility] 2024-10-13 10:28:57 Chief Complaint Patient presents with OTHER Patient is here to follow up on multiple issues Aaron Gavin MA Aaron Gavin MA [facility] 2024-10-03 09:46:40 Chief Complaint Patient presents with Consultation For Sleep Study, only occasional SOB. Selena Louis LVN [facility] 2024-09-29 09:45:47 Chief Complaint Patient presents with Follow-up F/u on left ankle pt states ankle rolled one morning getting out of bed 3 weeks ago, pt went to ER still has pain not heeling [phone] (home) Bren Almanza MA T [facility] 2024-09-06 12:15:00 Patient is awake and alert, oriented x4. Speech is clear and appropriate. Respirations even and unlabored, no distress. Ambulatory with steady gait. Reviewed discharge instructions, follow-up care, and RX with patient, verbalizes understanding. Crutches given with training. MT Nika Garcia RN [facility] [place] 2024-09-06 09:16:37 Patient states: "I got an unstable foot. I stepped down 45 minutes ago and heard a crack" Reports pain in left ankle. Darlyn Clayton RN [facility] [place] 2024-09-01 11:05:44 Chief Complaint Patient presents with OTHER 6 week follow up also patient would like to talk about sleeping medication not working Aaron Gavin MA [facility] 2024-08-18 09:35:13 Chief Complaint Patient presents with Foot Pain Bilateral foot pain x 2+ years. Left is worse than right. Says hurts to put on shoes sometimes as well as walking. MONICA Michael III [facility] 2024-07-21 14:01:16 Chief Complaint Patient presents with OTHER 5 week f/u under bladder Patient complains of arthritis in her feet and knees Aaron Gavin MA [facility] 2024 13:41:00 [facility] Hospitalist Discharge Summary REPORT#:[id number] REPORT STATUS: Signed REPORT INITIALIZATION DATE:07/07/24 TIME:134 PATIENT: BRICE DELATORRE UNIT #: [id number] ROOM/BED: [place] [id number] : [birth year] AGE: 49 SEX: F ATTEND: Levon Hurley MD ADM AUTHOR: Levon Hurley MD REPT SERVICE DT/TIME: 07/07/24 1341 * ALL edits or amendments must be made on the electronic/computer document * General Information Problem List/A P: 1. Postoperative abscess 2. History of laparoscopic-assisted vaginal hysterectomy 3. Sepsis Discharge date: 07/07/24 Discharge diagnosis: Postoperative abscess History of laparoscopic hysterectomy Sepsis Hospital course: Postoperative abscess History of laparoscopic hysterectomy Sepsis IV hydration Monitor closely on telemetry Started on IV antibiotic Appreciate help from PAYROLL TAX ANALYST Consult IR for aspiration Will obtain cultures Monitor CBC daily GI/DVT prophylaxis Advanced directive full code IR consult appreciated Status post aspiration Awaiting cultures Monitor closely Discussed with Dr. Montenegro Awaiting cultures ID consulted IV antibiotic Culture negative so far Monitor closely CT findings noted IR consult and s/p aspiration again Discussed with PAYROLL TAX ANALYST Pain control Monitor closely Awaiting further recommendations from IR and PAYROLL TAX ANALYST Patient had a repeat CT which showed improvement OBGYN recommended continuing po antibiotics and follow up as outpatient Med Rec Med Rec Discharge meds: Continue taking these medications: traZODone (DESYREL) 50 MG TAB 50 MILLIGRAM ORAL BEDTIME. QUEtiapine (SEROquel) 25 MG TAB 25 MILLIGRAM ORAL BEDTIME. ACETAMINOPHEN/CODEINE (TYLENOL WITH CODEINE #3 300/30 MG) 300 MG-30 MG TAB 1 TABLET ORAL EVERY 6 HOURS NEEDED. as needed for ACUTE PAIN not to exceed 4 per day Days = 7 Qty = 15 Start taking the following new medications: AMOXICILLIN/CLAV K (AUGMENTIN 500/125 MG) 500 MG-125 MG TAB 500 MILLIGRAM ORAL EVERY 8 HOURS. Qty = 30 No Refills Hydrocodone/Acetaminophen (HYDROcodone/APAP 10/325) 10 MG-325 MG TAB 1 TABLET ORAL EVERY 4 HOURS NEEDED. as needed for PAIN Qty = 14 No Refills Objective VS/I O Last Documented: Result Date Time Pulse Ox 92 07/07 1154 B/P 95/67 07/07 1154 B/P Mean 76.2 07/07 1154 Temp 98.1 07/07 1154 Pulse 64 07/07 1154 Resp 16 07/07 1154 O2 Delivery Room air 07/07 0323 O2 Flow Rate 2 07/04 1315 Free Text Obj Notes Free Text Obj Notes: Physical Exam General appearance: alert, awake, oriented HEENT : normocephalic ,Atraumatic Eyes: Eyes normal inspection. ENT: Dry mucous membranes present. Neck: Normal inspection. Neck supple. CVS: Normal heart rate and rhythm. Heart sounds normal. Respiratory: No respiratory distress. Breath sounds normal. Abdomen: Soft and nontender. Genitourinary: no bladder distention Back: Normal inspection. Skin: Skin warm. Normal skin color. No rash. Extremities: No lower extremity edema. Neuro: Oriented X 3. No motor deficit No generalized lymph adenopathy Psych normal affect Discharge Instructions PCP Discharge to: Home/Self Care Additional Discharge Routines: PCP Follow-Up, Surgery Specialist Follow-Up Diet: Resume Home Diet/Feeds Discharge management: greater than 30 mins Follow-up Appointments PCP follow-up: PCP: Saulo Montenegro MD PCP follow up timeframe: In 1-2 weeks Consulting provider 1: Provider 1: Saulo Montenegro MD Specialty: Gynecology Consult follow up timeframe: In 1-2 weeks at 1315 RPT #: [id number] END OF REPORT [facility] 2024 11:02:00 [facility] Hospitalist Progress Note REPORT#:[id number] REPORT STATUS: Signed REPORT INITIALIZATION DATE:07/07/24 TIME:1102 PATIENT: BRICE DELATORRE UNIT #: [id number] ROOM/BED: [place] [address] : [birth year] AGE: 49 SEX: F ATTEND: Levon Hurley MD ADM AUTHOR: Levon Hurley MD REPT SERVICE DT/TIME: 07/07/24 1102 * ALL edits or amendments must be made on the electronic/computer document * Subjective Chief complaint: Abdominal Pain is better HPI: 48-year-old female, postop day 6 status post laparoscopic hysterectomy who was transferred from [facility] for a postoperative vaginal cuff abscess. The patient complains of pelvic pain and bilateral lower abdominal pain associated with fever, 101.3 Fahrenheit at home. She was seen at [facility] emergency department and had a CT which showed a large lobulated vaginal cuff abscess. Dr. Puckett was consulted and recommended transfer to [facility] for further management Objective General VS/I O: Vital Signs: Date Time Temp Pulse Resp B/P B/P Pulse O2 O2 Flow FiO2 Mean Ox Delivery Rate 07/07 1022 97.7 55 16 95/66 75.7 93 / 0807 97.9 68 16 99/62 74.5 94 / 0555 73 106/67 80.4 02/ 0554 63 95/56 69.2 07/07 0323 98.1 71 18 92/58 69.2 93 Room air 07/06 2333 98.1 76 18 107/69 82.0 93 Room air 07/06 2228 73 104/67 79.5 07/06 2009 78 115/80 91.5 07/06 1935 97.7 70 17 90/64 72.8 94 Room air 07/06 1642 97.9 74 17 112/71 84.8 96 Room air 07/06 1250 98.1 71 16 116/77 90.2 93 Room air 24 hour I O ending at 0700: 07/07 0700 07/06 1900 Intake Total 2200 100.00 Output Total 30 Balance 2170 100.00 Intake, IV 100.00 Intake, Oral 2200 Number 2 Bowel Movements Number Voids 2 Output, 30 Drainage PATIENT WEIGHT: Weight (lb): Weight (oz): Weight (kg): 68.182 Medications: Active Meds + DC'd Last 24 Hrs Iopamidol (ISOVUE-300) 100 ML .STK-MED ONE IV (DC) Iohexol (Omnipaque) 6,000 MG .STK-MED ONE PO (DC) Sodium Chloride (0.9% Sodium Chloride) 100 ML Q12H IV Hydromorphone HCl (DILAUDID) 0.5 MG Q4H PRN PRN IV (DC) Bisacodyl (DULCOLAX) 10 MG BID PRN PRN RECTAL Ketorolac Tromethamine (TORADOL 30 MG) 15 MG Q6H PRN PRN IV Senna/Docusate Sodium (SENOKOT S) 2 TAB DAILY PO Polyethylene Glycol (MIRALAX) 17 GM DAILY PRN PRN PO Lidocaine HCl (Xylocaine 1%) 20 ML ONCALL LOCAL Docusate Sodium (COLACE) 100 MG BID PO Calcium Carbonate (TUMS) 500 MG Q6H PRN PRN PO Hydrocodone Bitart/Acetaminophen (NORCO 7.5/325) 2 TAB Q4H PRN PRN PO Ondansetron HCl (ZOFRAN) 8 MG Q8H PRN PRN PO Ondansetron HCl (ZOFRAN) 8 MG Q8H PRN PRN IV Sodium Chloride (0.9% Sodium Chloride) 500 ML ONCALL IV Acetaminophen (TYLENOL) 650 MG Q6H PRN PRN PO Nicotine (NICODERM) 14 MG DAILY TRANSDERM Fentanyl Citrate (SUBLIMAZE) 100 MCG ONCALL IV (CKD) Midazolam HCl (VERSED) 2 MG ONCALL IV (CKD) Quetiapine Fumarate (SeroqueL) 25 MG BEDTIME PO Trazodone HCl (DESYREL) 50 MG BEDTIME PO Ondansetron HCl (ZOFRAN) 4 MG Q4H PRN PRN IV Hydrocodone Bitart/Acetaminophen (NORCO 5/325) 1 TAB Q4H PRN PRN PO Piperacillin Sod/Tazobactam Sod (ZOSYN) 3.375 GM Q8HR IV (DC) Sodium Chloride (SODIUM CHLORIDE 0.9% MBP) 100 ML Dietitian nutrition assessment The data set between the solid lines has been imported from the dietitian's assessment. BMI Calculated: 25.0 Nutrition related diagnosis: Moderate malnutrition Nutrition diagnosis details: Nutrition problem: Moderate malnutrition Nutrition etiology: Acute illness, Decreased/poor appetite Nutrition signs and symptoms: mild muscle and subcutaenous, fat loss, intakes < 75% for 1 week Nutrition prescription: 1) Continue NPO, advance to regular diet as feasible 2 ) Recommend ensure BID to aid in PO intakes 3) Recommend bowel regimen, patient endorses constipation 4) Biweekly wt checks Dietitian name: Darlyn Thompson RDN, ARIELLE Assessment completed: 07/02/24 Results Findings/Data: Laboratory Tests 07/07 0706 Hematology WBC (3.5 - 11.0 K/mm3) 5.7 RBC (4.70 - 6.10 M/mm3) 4.18 L Hgb (10.4 - 14.9 G/DL) 12.0 Hct (31.5 - 44.1 %) 37.1 MCV (84.5 - 98.6 Fl) 88.8 MCH (27.0 - 34.2 pg) 28.7 MCHC (31.5 - 34.0 G/DL) 32.3 RDW (11.5 - 14.5 SD) 14.5 Plt Count (150 - 450 K/mm3) 369 MPV (7.0 - 10.5 fL) 9.00 Neut % (Auto) (40 - 76 %) 50.6 Lymph % (Auto) (20.5 - 51.1 %) 31.6 Morrison % (Auto) (1.7 - 9.3 %) 10.9 H Eos % (Auto) (0.0 - 6.0 %) 5.6 Baso % (Auto) (0.0 - 2.0 %) 0.9 Neut # (Auto) (1.8 - 7.6 K/mm3) 2.9 Lymph # (Auto) (0.6 - 3.2 K/mm3) 1.8 Morrison # (Auto) (0.3 - 1.1 K/mm3) 0.6 Eos # (Auto) (0.0 - 0.4 K/mm3) 0.3 Baso # (Auto) (0.0 - 0.1 K/mm3) 0.1 Abs Immat Gran (auto) (0.00 - 0.03 x10 3/uL) 0.02 Immature Gran % (0.0 - 5.0 %) 0.4 Nucleated RBC % (0.0 - 1.0 /100WBC%) 0.0 Radiology data: Recent Impressions: CAT SCAN - CT ABD PELVIS W/CONT 07/07 0646 Report Impression - Status: SIGNED Entered: 2024 0923 IMPRESSION: Near complete resolution of the previously identified vaginal cuff collection with pigtail drainage catheter in place and a small improving residual 1.1 x 1.2 cm fluid collection at the left aspect of the vaginal cuff. Impression By: [email or web address] - Darryn Fernández M.D. Free Text Obj Notes Free Text Obj Notes: Physical Exam General appearance: alert, awake, oriented HEENT : normocephalic ,Atraumatic Eyes: Eyes normal inspection. ENT: Dry mucous membranes present. Neck: Normal inspection. Neck supple. CVS: Normal heart rate and rhythm. Heart sounds normal. Respiratory: No respiratory distress. Breath sounds normal. Abdomen: Soft and nontender. Genitourinary: no bladder distention Back: Normal inspection. Skin: Skin warm. Normal skin color. No rash. Extremities: No lower extremity edema. Neuro: Oriented X 3. No motor deficit No generalized lymph adenopathy Psych normal affect Diagnosis, Assessment Plan Problem List/A P: 1. Postoperative abscess 2. History of laparoscopic-assisted vaginal hysterectomy 3. Sepsis Free Text DxA P Notes Free text DxA P notes: Postoperative abscess with cough History of laparoscopic hysterectomy Sepsis IV hydration Monitor closely on telemetry Started on IV antibiotic Appreciate help from PAYROLL TAX ANALYST Consult IR for aspiration Will obtain cultures Monitor CBC daily GI/DVT prophylaxis Advanced directive full code IR consult appreciated Status post aspiration Awaiting cultures Monitor closely Discussed with Dr. Montenegro Awaiting cultures ID consulted IV antibiotic Culture negative so far Monitor closely CT findings noted IR consult and s/p aspiration again Discussed with PAYROLL TAX ANALYST Pain control Monitor closely Possible IR versus laparoscopic procedure in a.m. N.p.o. postmidnight Awaiting further recommendations from IR and PAYROLL TAX ANALYST at 1103 RPT #: [id number] END OF REPORT [facility] 2024-07-06 11:13:00 [facility] Hospitalist Progress Note REPORT#:[id number] REPORT STATUS: Signed REPORT INITIALIZATION DATE:07/06/24 TIME:1113 PATIENT: BRICE DELATORRE UNIT #: [id number] ROOM/BED: [place] [id number] : 74 AGE: 48 SEX: F ATTEND: Levon Hurley MD ADM AUTHOR: Levon Hurley MD REPT SERVICE DT/TIME: 07/06/24 1113 * ALL edits or amendments must be made on the electronic/computer document * Subjective Chief complaint: Abdominal Pain is better HPI: 48-year-old female, postop day 6 status post laparoscopic hysterectomy who was transferred from [facility] for a postoperative vaginal cuff abscess. The patient complains of pelvic pain and bilateral lower abdominal pain associated with fever, 101.3 Fahrenheit at home. She was seen at [facility] emergency department and had a CT which showed a large lobulated vaginal cuff abscess. Dr. Puckett was consulted and recommended transfer to [facility] for further management Objective General VS/I O: Vital Signs: Date Time Temp Pulse Resp B/P B/P Pulse O2 O2 Flow FiO2 Mean Ox Delivery Rate 07/06 0839 98.1 73 17 101/66 77.4 95 Room air 07/06 0351 97.9 64 17 92/63 72.7 95 Room air 07/05 2334 97.7 65 17 109/70 82.7 94 Room air 07/05 1915 97.5 69 18 124/75 91.4 94 Room air 07/05 1732 97.3 77 16 138/80 0.0 95 Room air 07/05 1121 97.5 74 16 119/79 92.6 96 Room air 24 hour I O ending at 0700: 07/06 0700 07/05 1900 Intake Total 2618 454.00 Output Total 0 Balance 2618 454.00 Intake, IV 100.00 Intake, Oral 2500 354 Intake, Oral 118 Supplement Number Voids 1 2 Output, 0 Drainage PATIENT WEIGHT: Weight (lb): Weight (oz): Weight (kg): 68.182 Medications: Active Meds + DC'd Last 24 Hrs Bisacodyl (DULCOLAX) 20 MG ONCE ONE PO (DC) Polyethylene Glycol (MIRALAX) 238 GM ONCE ONE PO (CAN) Bisacodyl (DULCOLAX) 10 MG BID PRN PRN RECTAL Bisacodyl (DULCOLAX) 20 MG ONCE ONE PO (DC) Polyethylene Glycol (MIRALAX) 238 GM ONCE ONE PO (DC) Ketorolac Tromethamine (TORADOL 30 MG) 15 MG Q6H PRN PRN IV Senna/Docusate Sodium (SENOKOT S) 2 TAB DAILY PO Polyethylene Glycol (MIRALAX) 17 GM DAILY PRN PRN PO Lidocaine HCl (Xylocaine 1%) 20 ML ONCALL LOCAL Docusate Sodium (COLACE) 100 MG BID PO Calcium Carbonate (TUMS) 500 MG Q6H PRN PRN PO Hydrocodone Bitart/Acetaminophen (NORCO 7.5/325) 2 TAB Q4H PRN PRN PO Ondansetron HCl (ZOFRAN) 8 MG Q8H PRN PRN PO Ondansetron HCl (ZOFRAN) 8 MG Q8H PRN PRN IV Sodium Chloride (0.9% Sodium Chloride) 500 ML ONCALL IV Acetaminophen (TYLENOL) 650 MG Q6H PRN PRN PO Nicotine (NICODERM) 14 MG DAILY TRANSDERM Fentanyl Citrate (SUBLIMAZE) 100 MCG ONCALL IV (CKD) Midazolam HCl (VERSED) 2 MG ONCALL IV (CKD) Quetiapine Fumarate (SeroqueL) 25 MG BEDTIME PO Trazodone HCl (DESYREL) 50 MG BEDTIME PO Ondansetron HCl (ZOFRAN) 4 MG Q4H PRN PRN IV Hydrocodone Bitart/Acetaminophen (NORCO 5/325) 1 TAB Q4H PRN PRN PO Piperacillin Sod/Tazobactam Sod (ZOSYN) 3.375 GM Q8HR IV Sodium Chloride (SODIUM CHLORIDE 0.9% MBP) 100 ML Dietitian nutrition assessment The data set between the solid lines has been imported from the dietitian's assessment. BMI Calculated: 25.0 Nutrition related diagnosis: Moderate malnutrition Nutrition diagnosis details: Nutrition problem: Moderate malnutrition Nutrition etiology: Acute illness, Decreased/poor appetite Nutrition signs and symptoms: mild muscle and subcutaenous, fat loss, intakes < 75% for 1 week Nutrition prescription: 1) Continue NPO, advance to regular diet as feasible 2 ) Recommend ensure BID to aid in PO intakes 3) Recommend bowel regimen, patient endorses constipation 4) Biweekly wt checks Dietitian name: Darlyn Thompson RDN, ARIELLE Assessment completed: 07/02/24 Results Findings/Data: Laboratory Tests 07/05 1134 Chemistry Sodium (136 - 145 mmol/L) 141 Potassium (3.4 - 5.0 mmol/L) 4.5 Chloride (98 - 107 mmol/L) 105 Carbon Dioxide (21 - 32 mmol/L) 31 Anion Gap (4 - 15 GAP calc) 5 BUN (7 - 18 MG/DL) 20 H Creatinine (0.6 - 1.0 MG/DL) 0.8 Glomerular Filtr Rate (>60 estGFR) >=60 max estimate Glucose (70 - 110 MG/DL) 85 Calcium (8.5 - 10.1 MG/DL) 9.3 Phosphorus (2.5 - 4.9 MG/DL) 3.7 Magnesium (1.8 - 2.4 MG/DL) 2.0 Total Bilirubin (0.0 - 1.0 MG/DL) 0.3 AST (15 - 37 Unit/L) 51 H ALT (30 - 65 Unit/L) 103 H Total Alk Phosphatase (50 - 136 Unit/L) 217 H Total Protein (6.4 - 8.2 G/DL) 7.5 Albumin (3.4 - 5.0 G/DL) 2.6 L Globulin (GM/dL) 4.9 Albumin/Globulin Ratio (1.2 - 2.2 RATIO) 0.5 L Laboratory Tests 07/05 1120 Hematology WBC (3.5 - 11.0 K/mm3) 6.3 RBC (4.70 - 6.10 M/mm3) 4.39 L Hgb (10.4 - 14.9 G/DL) 12.6 Hct (31.5 - 44.1 %) 38.7 MCV (84.5 - 98.6 Fl) 88.2 MCH (27.0 - 34.2 pg) 28.7 MCHC (31.5 - 34.0 G/DL) 32.6 RDW (11.5 - 14.5 SD) 14.4 Plt Count (150 - 450 K/mm3) 345 MPV (7.0 - 10.5 fL) 9.00 Neut % (Auto) (40 - 76 %) 58.3 Lymph % (Auto) (20.5 - 51.1 %) 24.1 Morrison % (Auto) (1.7 - 9.3 %) 12.0 H Eos % (Auto) (0.0 - 6.0 %) 4.5 Baso % (Auto) (0.0 - 2.0 %) 0.8 Neut # (Auto) (1.8 - 7.6 K/mm3) 3.7 Lymph # (Auto) (0.6 - 3.2 K/mm3) 1.5 Morrison # (Auto) (0.3 - 1.1 K/mm3) 0.8 Eos # (Auto) (0.0 - 0.4 K/mm3) 0.3 Baso # (Auto) (0.0 - 0.1 K/mm3) 0.1 Abs Immat Gran (auto) (0.00 - 0.03 x10 3/uL) 0.02 Add Manual Diff (CRITERIA DIFF/SCN) NO Immature Gran % (0.0 - 5.0 %) 0.3 Nucleated RBC % (0.0 - 1.0 /100WBC%) 0.0 Free Text Obj Notes Free Text Obj Notes: Physical Exam General appearance: alert, awake, oriented HEENT : normocephalic ,Atraumatic Eyes: Eyes normal inspection. ENT: Dry mucous membranes present. Neck: Normal inspection. Neck supple. CVS: Normal heart rate and rhythm. Heart sounds normal. Respiratory: No respiratory distress. Breath sounds normal. Abdomen: Soft and nontender. Genitourinary: no bladder distention Back: Normal inspection. Skin: Skin warm. Normal skin color. No rash. Extremities: No lower extremity edema. Neuro: Oriented X 3. No motor deficit No generalized lymph adenopathy Psych normal affect Diagnosis, Assessment Plan Problem List/A P: 1. Postoperative abscess 2. History of laparoscopic-assisted vaginal hysterectomy 3. Sepsis Free Text DxA P Notes Free text DxA P notes: Postoperative abscess with cough History of laparoscopic hysterectomy Sepsis IV hydration Monitor closely on telemetry Started on IV antibiotic Appreciate help from PAYROLL TAX ANALYST Consult IR for aspiration Will obtain cultures Monitor CBC daily GI/DVT prophylaxis Advanced directive full code IR consult appreciated Status post aspiration Awaiting cultures Monitor closely Discussed with Dr. Montenegro Awaiting cultures ID consulted IV antibiotic Culture negative so far Monitor closely CT findings noted IR consult and s/p aspiration again Discussed with PAYROLL TAX ANALYST Pain control Monitor closely Possible IR versus laparoscopic procedure in a.m. N.p.o. postmidnight at 1203 RPT #: [id number] END OF REPORT [facility] 2024-07-06 11:11:00 [facility] ([facility]) Infectious Dis. Progress Note REPORT#:[id number] REPORT STATUS: Signed REPORT INITIALIZATION DATE:07/06/24 TIME:1111 PATIENT: BRICE DELATORRE UNIT #: [id number] ROOM/BED: [place] [address] : 74 AGE: 48 SEX: F ATTEND: Levon Hurley MD ADM AUTHOR: Priti Junior MD REPT SERVICE DT/TIME: 07/06/24 1111 * ALL edits or amendments must be made on the electronic/computer document * Subjective Comments: Afebrile had additional drainage becaue of lack luster reduction in collection family at bedside Objective General VS/I O: Vital Signs Date Temp Pulse Resp B/P B/P Mean Pulse Ox FiO2 07/05-07/06 97.3-98.1 64-77 16-18 92-138/63-80 0.0-91.4 93-96 Last Documented: Result Date Time Pulse Ox 96 07/06 1642 B/P 112/71 07/06 1642 B/P Mean 84.8 07/06 1642 O2 Delivery Room air 07/06 1642 Temp 97.9 07/06 1642 Pulse 74 07/06 1642 Resp 17 07/06 1642 O2 Flow Rate 2 07/04 1315 Vital Signs: Date Time Temp Pulse Resp B/P B/P Pulse O2 O2 Flow FiO2 Mean Ox Delivery Rate 07/06 1642 97.9 74 17 112/71 84.8 96 Room air 07/06 1250 98.1 71 16 116/77 90.2 93 Room air 07/06 0839 98.1 73 17 101/66 77.4 95 Room air 07/06 0351 97.9 64 17 92/63 72.7 95 Room air 07/05 2334 97.7 65 17 109/70 82.7 94 Room air 07/05 1915 97.5 69 18 124/75 91.4 94 Room air 07/05 1732 97.3 77 16 138/80 0.0 95 Room air 24 hour I O ending at 0700: 07/06 0700 07/05 1900 Intake Total 2618 454.00 Output Total 0 Balance 2618 454.00 Intake, IV 100.00 Intake, Oral 2500 354 Intake, Oral 118 Supplement Number Voids 1 2 Output, 0 Drainage PATIENT WEIGHT: Weight (lb): Weight (oz): Weight (kg): 68.182 Medications: Active Meds + DC'd Last 24 Hrs Hydromorphone HCl (DILAUDID) 0.5 MG Q4H PRN PRN IV Bisacodyl (DULCOLAX) 20 MG ONCE ONE PO (DC) Bisacodyl (DULCOLAX) 10 MG BID PRN PRN RECTAL Ketorolac Tromethamine (TORADOL 30 MG) 15 MG Q6H PRN PRN IV Senna/Docusate Sodium (SENOKOT S) 2 TAB DAILY PO Polyethylene Glycol (MIRALAX) 17 GM DAILY PRN PRN PO Lidocaine HCl (Xylocaine 1%) 20 ML ONCALL LOCAL Docusate Sodium (COLACE) 100 MG BID PO Calcium Carbonate (TUMS) 500 MG Q6H PRN PRN PO Hydrocodone Bitart/Acetaminophen (NORCO 7.5/325) 2 TAB Q4H PRN PRN PO Ondansetron HCl (ZOFRAN) 8 MG Q8H PRN PRN PO Ondansetron HCl (ZOFRAN) 8 MG Q8H PRN PRN IV Sodium Chloride (0.9% Sodium Chloride) 500 ML ONCALL IV Acetaminophen (TYLENOL) 650 MG Q6H PRN PRN PO Nicotine (NICODERM) 14 MG DAILY TRANSDERM Fentanyl Citrate (SUBLIMAZE) 100 MCG ONCALL IV (CKD) Midazolam HCl (VERSED) 2 MG ONCALL IV (CKD) Quetiapine Fumarate (SeroqueL) 25 MG BEDTIME PO Trazodone HCl (DESYREL) 50 MG BEDTIME PO Ondansetron HCl (ZOFRAN) 4 MG Q4H PRN PRN IV Hydrocodone Bitart/Acetaminophen (NORCO 5/325) 1 TAB Q4H PRN PRN PO Piperacillin Sod/Tazobactam Sod (ZOSYN) 3.375 GM Q8HR IV Sodium Chloride (SODIUM CHLORIDE 0.9% MBP) 100 ML Physical Exam General appearance: looks tired Head/Eyes: atraumatic, clear cornea, EOMI, normal conjunctiva/sclera, normal eyelids/periorb, normocephalic Neck: full range of motion, non-tender, supple/no meningismus Respiratory: symmetric expansion, no distress Abdomen: non-tender, normal bowel sounds, soft, no distention, no guarding Genitourinary: no flank pain Extremities: no clubbing, no cyanosis Musculoskeletal: no joint swelling Neuro/BEAMER HAND: alert, oriented X 3, normal speech Skin: normal turgor Psychiatry: normal affect, normal judgment/insight, normal mood Diagnosis, Assessment Plan Free Text A P: Laboratory Tests 07/03/24 0434: [Embedded Image Not Available] 07/03/24 0433: [Embedded Image Not Available] Imaging: CTAP reviewed 06/29 CXR reviewed 06/30 Assessment: 1. Probable sepsis (fever, leukocytosis). 2. Postop pelvic abscess s/p IR drainage 07/01/24. repeat CT 07/04 without much improvement, additional drain placed 07/04 with IR 3. Elevated LFTs. 4. S/p recent lap hysterectromy. Plan: 1. Zosyn (day 7). 2. Cultures remain negative, at dishcarge can switch to empiric ciprofloxacin and metronidazole. 3. Duration: 10 days from most recent drainage on 07/04, with repeat imaging to assess response. If not sufficiently improved, may need more invasive means of drainage, 4. Monitor CBC. 5. Monitor kidney function. 6. Follow LFTs. 7. F/u with DIRECTOR OF CAREER RESOURCES. 8. Plan discussed with pt. Thank you for this consult. Will continue to follow at 1707 RPT #: [id number] END OF REPORT [facility] 2024-07-05 11:31:00 [id number] [facility] [id number] [place] [id number] PATIENT NAME: BRICE DELATORRE ADMIT DATE: 06/29/24 ACCOUNT NO: [id number] ROOM NO: L.S206 AGE: 49 REPORT TYPE: PROGRESS NOTE SEX: F ADMITTING PHYSICIAN: Levon Hurley MD ATTENDING PHYSICIAN: Levon Hurley MD DATE: 07/05/2024 PROGRESS NOTE Hospital day #7. The patient admitted for pelvic abscess, status post robotic hysterectomy. SUBJECTIVE FINDINGS: Complaining of right lower quadrant pain. This has improved overall and she is able to walk without any significant pain; however, chiller tender and complaining of pelvic pressure, bladder pressure when she is emptying which resolves after emptying her bladder. Constipation, has not had a bowel movement in a week, but passing flatus. No nausea, vomiting. Tolerating diet, ambulating out of bed to the chair, has not smoked cigarettes or vaped in a few days. The patient is on a nicotine patch. Denies any shortness of breath, chest pain, dizziness. Other review of systems is negative. OBJECTIVE: VITAL SIGNS: The patient is afebrile with T-max of 97.9. Her vitals are all stable, not tachycardic, pulse of 74, blood pressure 119/79. GENERAL: The patient appears to be much better. No acute distress. HEENT: No pallor. Anicteric. ABDOMEN: Soft, nondistended, mildly tender in the right lower quadrant. No rebound. All incisions had Steri-Strips, which were removed and appeared to be normal. The right lower quadrant drain site is unremarkable with the bandage. The drainage from the drain is minimal, serosanguineous. PELVIC: Exam was performed. Vaginal cuff appears to be intact. The V-Loc can be palpated on the right and of the cuff consistent with very minimal drainage that the patient has reported. There is serosanguineous discharge as well on the examination and there is tenderness at the cuff with the pelvic mass slightly palpable with a bimanual as the patient is tender, exam was not adequate. Rest of the cuff is intact. No evidence of any cuff separation or dehiscence. EXTREMITIES: Unremarkable, no edema or calf tenderness. LABORATORY DATA: Her labs showed a white count of 10.2 yesterday with a left shift with 77% neutrophils, which is a slight worsening from the day prior. ASSESSMENT AND PLAN: 1. Pelvic abscess. This has been drained twice under ultrasound guidance. The first attempt with only very minimal drainage and the second attempt was slightly larger amount of drainage, but still the pelvic collection on repeat scan has remained unchanged. The plan is to flush the drain to the abscess cavity twice a day in order to prevent occlusion and also ensure that the pocket PATIENT NAME: BRICE DELATORRE is drained as best as it can be. I had a discussion with the interventional radiologist that drained the patient at least twice this week and we made a plan as dictated. If the patient is discharged home with a catheter, she will be taught to flush it twice a day and followup will be made through radiology for removal of the drain. Plan will be to rescan her in 1-week when the antibiotics are complete and reassess. If the pelvic abscess appears to cause the white count to go up again today and if there is a trend, then plan will be to consider laparoscopic drainage and we will plan to consult General Surgery on this. Once the white cell count is available today, I can make the decision. 2. Pelvic pain. This is related to the pelvic abscess and I had a discussion with the patient as well as her and reassured them that drainage of this completely will facilitate resolution of the pain and that there is no other complication thus far. Constipation could also be contributing to this, so we will work on this. Pain medication as needed. 3. Constipation. She has been already started on a bowel regimen, but we will plan to give her milk of magnesia for moving her bowels better. 4. Smoking. The patient is on nicotine patch and is doing well. She has been counseled again to completely quit vaping or smoking. She is prepared to contemplate this and try. We will revisit her in the next 1 to 2 days and we will plan whether she will be discharged on IV antibiotics or oral antibiotics with a catheter or have a surgical drainage, followed by antibiotics. Dr. Hurley primary physician in charge has also been informed and we had a discussion about the patient case. Dictated By: Saulo Montenegro MD Date Dictated: 07/05/2024 11:31:03 Date Transcribed: 07/05/2024 13:18:[address] [facility] Receipt ID: [id number] Authenticated by Saulo Montenegro MD On 2024 06:41:05 PM at 0641 PATIENT NAME: BRICE DELATORRE [facility] 2024-07-05 10:22:00 [facility] Hospitalist Progress Note REPORT#:[id number] REPORT STATUS: Signed REPORT INITIALIZATION DATE:07/05/24 TIME:1022 PATIENT: BRICE DELATORRE UNIT #: [id number] ROOM/BED: S206-1 : 74 AGE: 48 SEX: F ATTEND: Levon Hurley MD ADM AUTHOR: Levon Hurley MD REPT SERVICE DT/TIME: 07/05/24 1022 * ALL edits or amendments must be made on the electronic/computer document * Subjective Chief complaint: Abdominal Pain is better HPI: 48-year-old female, postop day 6 status post laparoscopic hysterectomy who was transferred from [facility] for a postoperative vaginal cuff abscess. The patient complains of pelvic pain and bilateral lower abdominal pain associated with fever, 101.3 Fahrenheit at home. She was seen at [facility] emergency department and had a CT which showed a large lobulated vaginal cuff abscess. Dr. Puckett was consulted and recommended transfer to [facility] for further management Objective General VS/I O: Vital Signs: Date Time Temp Pulse Resp B/P B/P Pulse O2 O2 Flow FiO2 Mean Ox Delivery Rate 07/05 0748 97.9 75 16 117/74 88.3 97 Room air 07/05 0357 97.7 71 17 104/68 79.5 93 Room air 07/04 2327 98.2 80 18 114/77 89.4 93 Room air 07/04 2030 97.3 78 17 121/81 94.1 96 Room air 07/04 1913 97.7 74 17 101/73 82.7 93 Room air 07/04 1725 71 125/82 96.4 07/04 1347 78 18 110/78 88.8 07/04 1315 98.1 72 16 116/76 99 High flow 2 nasal cannula 07/04 1310 98.1 70 18 112/70 99 High flow 2 nasal cannula 07/04 1306 High flow 2 nasal cannula 07/04 1305 70 15 99/67 99 High flow 2 nasal cannula 07/04 1300 72 15 102/70 98 07/04 1255 75 15 92/56 99 07/04 1251 Nasal 4 cannula 07/04 1250 80 16 82/51 95 High flow 4 nasal cannula 07/04 1245 80 15 87/55 96 Nasal 4 cannula 07/04 1239 98.5 81 15 99/56 97 Nasal 4 cannula 24 hour I O ending at 0700: 07/05 0700 07/04 1900 Intake Total 1200 Output Total Balance 1200 Intake, Oral 1200 Number Voids 1 PATIENT WEIGHT: Weight (lb): Weight (oz): Weight (kg): 68.182 Medications: Active Meds + DC'd Last 24 Hrs Ketorolac Tromethamine (TORADOL 30 MG) 15 MG Q6H PRN PRN IV (UNV) Lactulose (LACTULOSE) 20 GM ONCE ONE PO (DC) Senna/Docusate Sodium (SENOKOT S) 2 TAB DAILY PO Polyethylene Glycol (MIRALAX) 17 GM DAILY PRN PRN PO Hydrocodone Bitart/Acetaminophen (NORCO 5/325) 1 TAB PACU ONCE PRN PO ( DC) Hydrocodone Bitart/Acetaminophen (NORCO 10/325) 1 TAB PACU ONCE PRN PO ( DC) Hydromorphone HCl (DILAUDID) 0.5 MG PACU Q10MIN PRN PRN IV (DC) Labetalol HCl (TRANDATE) 5 MG PACU Q10MIN PRN PRN IV (DC) Ondansetron HCl (ZOFRAN) 4 MG PACU ONCE PRN IV (DC) Midazolam HCl (VERSED) 0 .STK-MED ONE .ROUTE (DC) Fentanyl Citrate (SUBLIMAZE) 0 .STK-MED ONE .ROUTE (DC) Propofol (DIPRIVAN) 20 ML .STK-MED ONE IV (DC) Lidocaine HCl (XYLOCAINE) 0 .STK-MED ONE .ROUTE (DC) Midazolam HCl (VERSED) 0 .STK-MED ONE .ROUTE (DC) Propofol (DIPRIVAN) 0 .STK-MED ONE IV (DC) Lidocaine HCl (Xylocaine 1%) 20 ML ONCALL LOCAL Docusate Sodium (COLACE) 100 MG BID PO Calcium Carbonate (TUMS) 500 MG Q6H PRN PRN PO Hydrocodone Bitart/Acetaminophen (NORCO 7.5/325) 2 TAB Q4H PRN PRN PO Ondansetron HCl (ZOFRAN) 8 MG Q8H PRN PRN PO Ondansetron HCl (ZOFRAN) 8 MG Q8H PRN PRN IV Lidocaine HCl (Xylocaine 1%) 20 ML ONCALL LOCAL (DC) Sodium Chloride (0.9% Sodium Chloride) 500 ML ONCALL IV Acetaminophen (TYLENOL) 650 MG Q6H PRN PRN PO Nicotine (NICODERM) 14 MG DAILY TRANSDERM Fentanyl Citrate (SUBLIMAZE) 100 MCG ONCALL IV (CKD) Lidocaine HCl (Xylocaine 1%) 20 ML ONCALL LOCAL (DC) Midazolam HCl (VERSED) 2 MG ONCALL IV (CKD) Quetiapine Fumarate (SeroqueL) 25 MG BEDTIME PO Trazodone HCl (DESYREL) 50 MG BEDTIME PO Ondansetron HCl (ZOFRAN) 4 MG Q4H PRN PRN IV Hydrocodone Bitart/Acetaminophen (NORCO 5/325) 1 TAB Q4H PRN PRN PO Piperacillin Sod/Tazobactam Sod (ZOSYN) 3.375 GM Q8HR IV Sodium Chloride (SODIUM CHLORIDE 0.9% MBP) 100 ML Dietitian nutrition assessment The data set between the solid lines has been imported from the dietitian's assessment. BMI Calculated: 25.0 Nutrition related diagnosis: Moderate malnutrition Nutrition diagnosis details: Nutrition problem: Moderate malnutrition Nutrition etiology: Acute illness, Decreased/poor appetite Nutrition signs and symptoms: mild muscle and subcutaenous, fat loss, intakes < 75% for 1 week Nutrition prescription: 1) Continue NPO, advance to regular diet as feasible 2 ) Recommend ensure BID to aid in PO intakes 3) Recommend bowel regimen, patient endorses constipation 4) Biweekly wt checks Dietitian name: Darlyn Thompson RDN, LD Assessment completed: 07/02/24 Results Findings/Data: Laboratory Tests 07/04 1409 Hematology WBC (3.5 - 11.0 K/mm3) 10.2 RBC (4.70 - 6.10 M/mm3) 4.18 L Hgb (10.4 - 14.9 G/DL) 12.0 Hct (31.5 - 44.1 %) 36.5 MCV (84.5 - 98.6 Fl) 87.3 MCH (27.0 - 34.2 pg) 28.7 MCHC (31.5 - 34.0 G/DL) 32.9 RDW (11.5 - 14.5 SD) 14.3 Plt Count (150 - 450 K/mm3) 294 MPV (7.0 - 10.5 fL) 9.70 Neut % (Auto) (40 - 76 %) 77.0 H Lymph % (Auto) (20.5 - 51.1 %) 13.0 L Morrison % (Auto) (1.7 - 9.3 %) 7.4 Eos % (Auto) (0.0 - 6.0 %) 1.7 Baso % (Auto) (0.0 - 2.0 %) 0.4 Neut # (Auto) (1.8 - 7.6 K/mm3) 7.9 H Lymph # (Auto) (0.6 - 3.2 K/mm3) 1.3 Morrison # (Auto) (0.3 - 1.1 K/mm3) 0.8 Eos # (Auto) (0.0 - 0.4 K/mm3) 0.2 Baso # (Auto) (0.0 - 0.1 K/mm3) 0.0 Abs Immat Gran (auto) (0.00 - 0.03 x10 3/uL) 0.05 H Immature Gran % (0.0 - 5.0 %) 0.5 Nucleated RBC % (0.0 - 1.0 /100WBC%) 0.0 Radiology data: Recent Impressions: SPECIAL PROCEDURES - SP PERC DRAIN 07/04 1100 Report Impression - Status: SIGNED Entered: 07/04/2024 1310 IMPRESSION: Right pelvic pigtail drainage catheter replacement. Contrast injection demonstrates vaginal cuff dehiscence. Impression By: ConniePKIlana Rosario M.D. Free Text Obj Notes Free Text Obj Notes: Physical Exam General appearance: alert, awake, oriented HEENT : normocephalic ,Atraumatic Eyes: Eyes normal inspection. ENT: Dry mucous membranes present. Neck: Normal inspection. Neck supple. CVS: Normal heart rate and rhythm. Heart sounds normal. Respiratory: No respiratory distress. Breath sounds normal. Abdomen: Soft and nontender. Genitourinary: no bladder distention Back: Normal inspection. Skin: Skin warm. Normal skin color. No rash. Extremities: No lower extremity edema. Neuro: Oriented X 3. No motor deficit No generalized lymph adenopathy Psych normal affect Diagnosis, Assessment Plan Problem List/A P: 1. Postoperative abscess 2. History of laparoscopic-assisted vaginal hysterectomy 3. Sepsis Free Text DxA P Notes Free text DxA P notes: Postoperative abscess with cough History of laparoscopic hysterectomy Sepsis IV hydration Monitor closely on telemetry Started on IV antibiotic Appreciate help from PAYROLL TAX ANALYST Consult IR for aspiration Will obtain cultures Monitor CBC daily GI/DVT prophylaxis Advanced directive full code IR consult appreciated Status post aspiration Awaiting cultures Monitor closely Discussed with Dr. Montenegro Awaiting cultures ID consulted IV antibiotic Culture negative so far Monitor closely CT findings noted IR consult and s/p aspiration again Discussed with PAYROLL TAX ANALYST Pain control Monitor closely at 1023 RPT #: [id number] END OF REPORT [facility] 2024-07-04 13:34:00 [facility] ([facility]) Post Anesthesia Evaluation REPORT#:[id number] REPORT STATUS: Signed REPORT INITIALIZATION DATE:07/04/24 TIME:1333 PATIENT: BRICE DELATORRE UNIT #: [id number] ROOM/BED: [place] [address] : 74 AGE: 48 SEX: F ATTEND: Levon Hurley MD ADM AUTHOR: Sarahy Acosta MD REPT SERVICE DT/TIME: 07/04/24 1334 * ALL edits or amendments must be made on the electronic/computer document * Post Anesthesia Evaluation Anes. changes from pre-op eval Level of consciousness: no change, patient awake, able to answer questions, participate in this eval. Vital signs: Last Documented: Result Date Time Pulse Ox 99 07/04 1310 B/P 112/70 07/04 1310 O2 Delivery High flow nasal cannula 07/04 131 O2 Flow Rate 2 07/04 1310 Temp 36.7 07/04 1310 Pulse 70 07/04 1310 Resp 18 07/04 1310 B/P Mean 87.7 07/04 0411 Cardiovascular: CV system stable, vital signs stable Respiratory/Airway: respiratory system stable, maintains without support Pain: adequately controlled Hydration: adequate Temp status: normothermic Presence of N/V: no Anesthesia complications: no at 1335 RPT #: [id number] END OF REPORT [facility] 2024-07-04 11:13:00 [facility]) Hospitalist Progress Note REPORT#:[id number] REPORT STATUS: Signed REPORT INITIALIZATION DATE:07/04/24 TIME:1113 PATIENT: BRICE DELATORRE UNIT #: [id number] ROOM/BED: [place] [id number] : 74 AGE: 48 SEX: F ATTEND: Levon Hurley MD ADM AUTHOR: Levon Hurley MD REPT SERVICE DT/TIME: 07/04/24 1113 * ALL edits or amendments must be made on the electronic/computer document * Subjective Chief complaint: Abdominal Pain is better HPI: 48-year-old female, postop day 6 status post laparoscopic hysterectomy who was transferred from [facility] for a postoperative vaginal cuff abscess. The patient complains of pelvic pain and bilateral lower abdominal pain associated with fever, 101.3 Fahrenheit at home. She was seen at [facility] emergency department and had a CT which showed a large lobulated vaginal cuff abscess. Dr. Puckett was consulted and recommended transfer to [facility] for further management Objective General VS/I O: Vital Signs: Date Time Temp Pulse Resp B/P B/P Pulse O2 O2 Flow FiO2 Mean Ox Delivery Rate 07/04 1315 98.1 72 16 116/76 99 High flow 2 nasal cannula 07/04 1310 98.1 70 18 112/70 99 High flow 2 nasal cannula 07/04 1306 High flow 2 nasal cannula 07/04 1305 70 15 99/67 99 High flow 2 nasal cannula 07/04 1300 72 15 102/70 98 07/04 1255 75 15 92/56 99 07/04 1251 Nasal 4 cannula 07/04 1250 80 16 82/51 95 High flow 4 nasal cannula 07/04 1245 80 15 87/55 96 Nasal 4 cannula 07/04 1239 98.5 81 15 99/56 97 Nasal 4 cannula 07/04 0411 98.2 78 16 113/75 87.7 93 07/03 2342 98.4 86 16 122/82 95.4 94 07/03 2030 Nasal 2 cannula 07/03 2001 97.3 78 16 126/85 98.5 94 07/03 1616 98.1 83 14 114/80 91.1 94 24 hour I O ending at 0700: 07/04 0700 07/03 1900 Intake Total 1780.00 Output Total 0 Balance 1780.00 Intake, IV 560.00 Intake, Oral 1220 Number Voids 2 Output, 0 Drainage PATIENT WEIGHT: Weight (lb): Weight (oz): Weight (kg): 68.182 Medications: Active Meds + DC'd Last 24 Hrs Hydrocodone Bitart/Acetaminophen (NORCO 5/325) 1 TAB PACU ONCE PRN PO Hydrocodone Bitart/Acetaminophen (NORCO 10/325) 1 TAB PACU ONCE PRN PO Hydromorphone HCl (DILAUDID) 0.5 MG PACU Q10MIN PRN PRN IV Labetalol HCl (TRANDATE) 5 MG PACU Q10MIN PRN PRN IV Ondansetron HCl (ZOFRAN) 4 MG PACU ONCE PRN IV Midazolam HCl (VERSED) 0 .STK-MED ONE .ROUTE (DC) Fentanyl Citrate (SUBLIMAZE) 0 .STK-MED ONE .ROUTE (DC) Propofol (DIPRIVAN) 20 ML .STK-MED ONE IV (DC) Lidocaine HCl (XYLOCAINE) 0 .STK-MED ONE .ROUTE (DC) Midazolam HCl (VERSED) 0 .STK-MED ONE .ROUTE (DC) Propofol (DIPRIVAN) 0 .STK-MED ONE IV (DC) Lidocaine HCl (Xylocaine 1%) 20 ML ONCALL LOCAL Iopamidol (ISOVUE-300) 100 ML .STK-MED ONE IV (DC) Docusate Sodium (COLACE) 100 MG BID PO Pregabalin (LYRICA) 75 MG BID PO (DC) Calcium Carbonate (TUMS) 500 MG Q6H PRN PRN PO Hydrocodone Bitart/Acetaminophen (NORCO 7.5/325) 2 TAB Q4H PRN PRN PO Ondansetron HCl (ZOFRAN) 8 MG Q8H PRN PRN PO Ondansetron HCl (ZOFRAN) 8 MG Q8H PRN PRN IV Lidocaine HCl (Xylocaine 1%) 20 ML ONCALL LOCAL (DC) Sodium Chloride (0.9% Sodium Chloride) 500 ML ONCALL IV Acetaminophen (TYLENOL) 650 MG Q6H PRN PRN PO Nicotine (NICODERM) 14 MG DAILY TRANSDERM Fentanyl Citrate (SUBLIMAZE) 100 MCG ONCALL IV (CKD) Lidocaine HCl (Xylocaine 1%) 20 ML ONCALL LOCAL (DC) Midazolam HCl (VERSED) 2 MG ONCALL IV (CKD) Quetiapine Fumarate (SeroqueL) 25 MG BEDTIME PO Trazodone HCl (DESYREL) 50 MG BEDTIME PO Ondansetron HCl (ZOFRAN) 4 MG Q4H PRN PRN IV Hydrocodone Bitart/Acetaminophen (NORCO 5/325) 1 TAB Q4H PRN PRN PO Piperacillin Sod/Tazobactam Sod (ZOSYN) 3.375 GM Q8HR IV Sodium Chloride (SODIUM CHLORIDE 0.9% MBP) 100 ML Dietitian nutrition assessment The data set between the solid lines has been imported from the dietitian's assessment. BMI Calculated: 25.0 Nutrition related diagnosis: Moderate malnutrition Nutrition diagnosis details: Nutrition problem: Moderate malnutrition Nutrition etiology: Acute illness, Decreased/poor appetite Nutrition signs and symptoms: mild muscle and subcutaenous, fat loss, intakes < 75% for 1 week Nutrition prescription: 1) Continue NPO, advance to regular diet as feasible 2 ) Recommend ensure BID to aid in PO intakes 3) Recommend bowel regimen, patient endorses constipation 4) Biweekly wt checks Dietitian name: Darlyn Thompson RDN, LD Assessment completed: 07/02/24 Results Findings/Data: Laboratory Tests 07/04 0356 Chemistry Sodium (136 - 145 mmol/L) 141 Potassium (3.4 - 5.0 mmol/L) 3.9 Chloride (98 - 107 mmol/L) 105 Carbon Dioxide (21 - 32 mmol/L) 31 Anion Gap (4 - 15 GAP calc) 5 BUN (7 - 18 MG/DL) 16 Creatinine (0.6 - 1.0 MG/DL) 0.6 Glomerular Filtr Rate (>60 estGFR) >=60 max estimate Glucose (70 - 110 MG/DL) 101 Calcium (8.5 - 10.1 MG/DL) 8.7 Total Bilirubin (0.0 - 1.0 MG/DL) 0.2 AST (15 - 37 Unit/L) 66 H ALT (30 - 65 Unit/L) 121 H Total Alk Phosphatase (50 - 136 Unit/L) 233 H Total Protein (6.4 - 8.2 G/DL) 6.3 L Albumin (3.4 - 5.0 G/DL) 2.1 L Globulin (GM/dL) 4.2 Albumin/Globulin Ratio (1.2 - 2.2 RATIO) 0.5 L Laboratory Tests 07/04 0806 Miscellaneous Maternal Serum HCG (0 - 6 mi-IU/ML) 4 Radiology data: Recent Impressions: CAT SCAN - CT ABD PELVIS W/CONT 07/04 0840 Report Impression - Status: SIGNED Entered: 07/04/2024 0945 IMPRESSION: Significant interval improvement of the vaginal cuff abscess status post pigtail drainage catheter placement with the residual bilobed collection measuring 1.7 x 1.4 cm on the right and 2.3 x 1.4 cm on the left. Impression By: [email or web address] - Darryn Fernández M.D. SPECIAL PROCEDURES - SP PERC DRAIN 07/04 1100 Report Impression - Status: SIGNED Entered: 07/04/2024 1310 IMPRESSION: Right pelvic pigtail drainage catheter replacement. Contrast injection demonstrates vaginal cuff dehiscence. Impression By: [email or web address] - Suma Rosario M.D. Free Text Obj Notes Free Text Obj Notes: Physical Exam General appearance: alert, awake, oriented HEENT : normocephalic ,Atraumatic Eyes: Eyes normal inspection. ENT: Dry mucous membranes present. Neck: Normal inspection. Neck supple. CVS: Normal heart rate and rhythm. Heart sounds normal. Respiratory: No respiratory distress. Breath sounds normal. Abdomen: Soft and nontender. Genitourinary: no bladder distention Back: Normal inspection. Skin: Skin warm. Normal skin color. No rash. Extremities: No lower extremity edema. Neuro: Oriented X 3. No motor deficit No generalized lymph adenopathy Psych normal affect Diagnosis, Assessment Plan Problem List/A P: 1. Postoperative abscess 2. History of laparoscopic-assisted vaginal hysterectomy 3. Sepsis Free Text DxA P Notes Free text DxA P notes: Postoperative abscess with cough History of laparoscopic hysterectomy Sepsis IV hydration Monitor closely on telemetry Started on IV antibiotic Appreciate help from PAYROLL TAX ANALYST Consult IR for aspiration Will obtain cultures Monitor CBC daily GI/DVT prophylaxis Advanced directive full code IR consult appreciated Status post aspiration Awaiting cultures Monitor closely Discussed with Dr. Montenegro Awaiting cultures ID consulted IV antibiotic Culture negative so far Monitor closely CT findings noted Will get a repeat IR consult and possible aspiration again Discussed with PAYROLL TAX ANALYST Pain control Monitor closely at 1344 RPT #: [id number] END OF REPORT [facility] 2024-07-03 12:19:00 [facility] [place] Hospitalist Progress Note REPORT#:[id number] REPORT STATUS: Signed REPORT INITIALIZATION DATE:07/03/24 TIME:1218 PATIENT: BRICE DELATORRE UNIT #: [id number] ROOM/BED: [place] [address] : 74 AGE: 48 SEX: F ATTEND: Levon Hurley MD ADM AUTHOR: Levon Hurley MD REPT SERVICE DT/TIME: 07/03/24 1219 * ALL edits or amendments must be made on the electronic/computer document * Subjective Chief complaint: Abdominal Pain is better HPI: 48-year-old female, postop day 6 status post laparoscopic hysterectomy who was transferred from [facility] for a postoperative vaginal cuff abscess. The patient complains of pelvic pain and bilateral lower abdominal pain associated with fever, 101.3 Fahrenheit at home. She was seen at [facility] emergency department and had a CT which showed a large lobulated vaginal cuff abscess. Dr. Puckett was consulted and recommended transfer to [facility] for further management Objective General VS/I O: Vital Signs: Date Time Temp Pulse Resp B/P B/P Pulse O2 O2 Flow FiO2 Mean Ox Delivery Rate 07/03 1135 97.9 74 14 97/64 74.9 93 07/03 0715 98.1 77 15 102/69 80.2 97 07/03 0340 98.6 92 18 105/70 81.7 90 Room air 07/02 2343 99.0 92 18 102/66 78.1 90 Room air 07/02 1919 97.9 90 18 106/70 82.1 94 Room air 07/02 1649 98.1 81 16 105/69 81.1 94 07/02 1603 98.2 84 14 103/67 79.0 96 Room air 07/02 1357 97.7 87 14 112/73 86.3 97 Nasal 2 cannula 24 hour I O ending at 0700: 07/03 0700 07/02 1900 Intake Total 2670.00 250 Output Total 1000 30 Balance 1670.00 220 Intake, IV 320.00 Intake, Oral 2350 250 Number Voids 1 Output, 30 Drainage Output, Urine 1000 PATIENT WEIGHT: Weight (lb): Weight (oz): Weight (kg): 68.182 Medications: Active Meds + DC'd Last 24 Hrs Patient Own Medication (PATIENT'S OWN CONTROLLED MEDICATION A) ESTROVEN CAPS BEDTIME PO (DC) Docusate Sodium (COLACE) 100 MG BID PO Pregabalin (LYRICA) 75 MG BID PO Calcium Carbonate (TUMS) 500 MG Q6H PRN PRN PO Hydrocodone Bitart/Acetaminophen (NORCO 7.5/325) 2 TAB Q4H PRN PRN PO Ondansetron HCl (ZOFRAN) 8 MG Q8H PRN PRN PO Ondansetron HCl (ZOFRAN) 8 MG Q8H PRN PRN IV Lidocaine HCl (Xylocaine 1%) 20 ML ONCALL LOCAL Sodium Chloride (0.9% Sodium Chloride) 500 ML ONCALL IV Acetaminophen (TYLENOL) 650 MG Q6H PRN PRN PO Nicotine (NICODERM) 14 MG DAILY TRANSDERM Fentanyl Citrate (SUBLIMAZE) 100 MCG ONCALL IV (CKD) Lidocaine HCl (Xylocaine 1%) 20 ML ONCALL LOCAL Midazolam HCl (VERSED) 2 MG ONCALL IV (CKD) Quetiapine Fumarate (SeroqueL) 25 MG BEDTIME PO Trazodone HCl (DESYREL) 50 MG BEDTIME PO Ondansetron HCl (ZOFRAN) 4 MG Q4H PRN PRN IV Hydrocodone Bitart/Acetaminophen (NORCO 5/325) 1 TAB Q4H PRN PRN PO Morphine Sulfate (morphine Sulfate) 2 MG Q4H PRN PRN IV (DC) Piperacillin Sod/Tazobactam Sod (ZOSYN) 3.375 GM Q8HR IV Sodium Chloride (SODIUM CHLORIDE 0.9% MBP) 100 ML Dietitian nutrition assessment The data set between the solid lines has been imported from the dietitian's assessment. BMI Calculated: 25.0 Nutrition related diagnosis: Moderate malnutrition Nutrition diagnosis details: Nutrition problem: Moderate malnutrition Nutrition etiology: Acute illness, Decreased/poor appetite Nutrition signs and symptoms: mild muscle and subcutaenous, fat loss, intakes < 75% for 1 week Nutrition prescription: 1) Continue NPO, advance to regular diet as feasible 2 ) Recommend ensure BID to aid in PO intakes 3) Recommend bowel regimen, patient endorses constipation 4) Biweekly wt checks Dietitian name: Darlyn Thompson RDN, ARIELLE Assessment completed: 07/02/24 Results Findings/Data: Laboratory Tests 07/03 0434 Chemistry Sodium (136 - 145 mmol/L) 138 Potassium (3.4 - 5.0 mmol/L) 3.7 Chloride (98 - 107 mmol/L) 102 Carbon Dioxide (21 - 32 mmol/L) 30 Anion Gap (4 - 15 GAP calc) 6 BUN (7 - 18 MG/DL) 14 Creatinine (0.6 - 1.0 MG/DL) 0.5 L Glomerular Filtr Rate (>60 estGFR) >=60 max estimate Glucose (70 - 110 MG/DL) 99 Calcium (8.5 - 10.1 MG/DL) 8.4 L Total Bilirubin (0.0 - 1.0 MG/DL) 0.2 AST (15 - 37 Unit/L) 127 H ALT (30 - 65 Unit/L) 162 H Total Alk Phosphatase (50 - 136 Unit/L) 277 H Total Protein (6.4 - 8.2 G/DL) 6.3 L Albumin (3.4 - 5.0 G/DL) 2.1 L Globulin (GM/dL) 4.2 Albumin/Globulin Ratio (1.2 - 2.2 RATIO) 0.5 L Laboratory Tests 07/03 0433 Hematology WBC (3.5 - 11.0 K/mm3) 8.7 RBC (4.70 - 6.10 M/mm3) 3.86 L Hgb (10.4 - 14.9 G/DL) 11.1 Hct (31.5 - 44.1 %) 33.8 MCV (84.5 - 98.6 Fl) 87.6 MCH (27.0 - 34.2 pg) 28.8 MCHC (31.5 - 34.0 G/DL) 32.8 RDW (11.5 - 14.5 SD) 13.9 Plt Count (150 - 450 K/mm3) 261 MPV (7.0 - 10.5 fL) 9.50 Neut % (Auto) (40 - 76 %) 73.9 Lymph % (Auto) (20.5 - 51.1 %) 13.9 L Morrison % (Auto) (1.7 - 9.3 %) 10.0 H Eos % (Auto) (0.0 - 6.0 %) 1.7 Baso % (Auto) (0.0 - 2.0 %) 0.2 Neut # (Auto) (1.8 - 7.6 K/mm3) 6.4 Lymph # (Auto) (0.6 - 3.2 K/mm3) 1.2 Morrison # (Auto) (0.3 - 1.1 K/mm3) 0.9 Eos # (Auto) (0.0 - 0.4 K/mm3) 0.2 Baso # (Auto) (0.0 - 0.1 K/mm3) 0.0 Abs Immat Gran (auto) (0.00 - 0.03 x10 3/uL) 0.03 Immature Gran % (0.0 - 5.0 %) 0.3 Nucleated RBC % (0.0 - 1.0 /100WBC%) 0.0 Free Text Obj Notes Free Text Obj Notes: Physical Exam General appearance: alert, awake, oriented HEENT : normocephalic ,Atraumatic Eyes: Eyes normal inspection. ENT: Dry mucous membranes present. Neck: Normal inspection. Neck supple. CVS: Normal heart rate and rhythm. Heart sounds normal. Respiratory: No respiratory distress. Breath sounds normal. Abdomen: Soft and nontender. Genitourinary: no bladder distention Back: Normal inspection. Skin: Skin warm. Normal skin color. No rash. Extremities: No lower extremity edema. Neuro: Oriented X 3. No motor deficit No generalized lymph adenopathy Psych normal affect Diagnosis, Assessment Plan Problem List/A P: 1. Postoperative abscess 2. History of laparoscopic-assisted vaginal hysterectomy 3. Sepsis Free Text DxA P Notes Free text DxA P notes: Postoperative abscess with cough History of laparoscopic hysterectomy Sepsis IV hydration Monitor closely on telemetry Started on IV antibiotic Appreciate help from PAYROLL TAX ANALYST Consult IR for aspiration Will obtain cultures Monitor CBC daily GI/DVT prophylaxis Advanced directive full code IR consult appreciated Status post aspiration Awaiting cultures Monitor closely Discussed with Dr. Montenegro Awaiting cultures ID consulted IV antibiotic Culture negative so far Monitor closely Possible DC in AM at 1222 RPT #: [id number] END OF REPORT [facility] 2024-07-03 11:03:00 [facility] ([facility]) Infect Disease Consult Note REPORT#:[id number] REPORT STATUS: Signed REPORT INITIALIZATION DATE:07/03/24 TIME:1103 PATIENT: BRICE DELATORRE UNIT #: [id number] ROOM/BED: [place] [address] : 74 AGE: 48 SEX: F ATTEND: Levon Hurley MD ADM AUTHOR: Phillip Palencia MD REPT SERVICE DT/TIME: 07/03/24 1103 * ALL edits or amendments must be made on the electronic/computer document * History of Present Illness Chief complaint: Pelvic abscess HPI: 48-year-old female, s/p recent laparoscopic hysterectomy who was transferred from [facility] for a vaginal abscess. The patient developed worsening pelvic pain associated with fever. She was seen at [facility] ED and CT showed a large lobulated vaginal cuff abscess. Pt transferred to this hospital for further management. History - Adult longitudinal Additional medical history: No significant past medical history Additional surgical history: Laparoscopic hysterectomy Family history: Reports: Hypertension. Smoking status for patients 13 years old or older: Never Smoker Date last smoked: 06/30/24 Packs per day: 1 Years smoked: 20 Pack years: 20 Allergies: Coded Allergies: No Known Allergies (06/19/24) Review of Systems Constitutional: Reports: fatigue. Skin: Denies: rash. Allergy/Immun: Denies hives Eyes: Denies discharge ENT: Denies: sore throat. Respiratory: Denies: productive cough (sputum). Cardiovascular: Denies: chest pain. GI: Denies: abdominal pain. : Denies: dysuria. Musculoskeletal: Denies: joint swelling. Objective General VS/I O: Vital Signs Date Temp Pulse Resp B/P B/P Mean Pulse Ox FiO2 07/02-07/03 36.5-37.2 74-92 14-18 97-112/64-73 74.9-86.3 90-97 Last Documented: Result Date Time Pulse Ox 93 07/03 1135 B/P 97/64 07/03 1135 B/P Mean 74.9 07/03 1135 Temp 36.6 07/03 1135 Pulse 74 07/03 1135 Resp 14 07/03 1135 O2 Delivery Room air 07/03 0340 O2 Flow Rate 2 07/02 1357 Vital Signs: Date Time Temp Pulse Resp B/P B/P Pulse O2 O2 Flow FiO2 Mean Ox Delivery Rate 07/03 1135 36.6 74 14 97/64 74.9 93 07/03 0715 36.7 77 15 102/69 80.2 97 07/03 0340 37.0 92 18 105/70 81.7 90 Room air 07/02 2343 37.2 92 18 102/66 78.1 90 Room air 07/02 1919 36.6 90 18 106/70 82.1 94 Room air 07/02 1649 36.7 81 16 105/69 81.1 94 07/02 1603 36.8 84 14 103/67 79.0 96 Room air 07/02 1357 36.5 87 14 112/73 86.3 97 Nasal 2 cannula 24 hour I O ending at 0700: 07/03 0700 07/02 1900 Intake Total 2670.00 250 Output Total 1000 30 Balance 1670.00 220 Intake, IV 320.00 Intake, Oral 2350 250 Number Voids 1 Output, 30 Drainage Output, Urine 1000 PATIENT WEIGHT: Weight (lb): Weight (oz): Weight (kg): 68.182 Physical Exam General appearance: chronically ill appearing, alert, awake, oriented, no acute distress, mental status normal, no respiratory distress Head/Eyes: atraumatic, clear cornea, EOMI, normal conjunctiva/sclera, normal eyelids/periorb, normocephalic ENT: moist mucosal membranes, normal nose Neck: full range of motion, non-tender, supple/no meningismus Cardiovascular: regular rate rhythm Respiratory: symmetric expansion, no distress Abdomen: non-tender, normal bowel sounds, soft, no distention, no guarding Genitourinary: no flank pain Extremities: no clubbing, no cyanosis Musculoskeletal: no joint swelling Neuro/BEAMER HAND: alert, oriented X 3, normal speech Skin: normal turgor Psychiatry: normal affect, normal judgment/insight, normal mood Diagnosis, Assessment Plan Free Text DxA P Notes Free text DxA P notes: Laboratory Tests 07/03/24 0434: [Embedded Image Not Available] 07/03/24 0433: [Embedded Image Not Available] Imaging: CTAP reviewed 06/29 CXR reviewed 06/30 Assessment: 1. Probable sepsis (fever, leukocytosis). 2. Postop pelvic abscess s/p IR drainage 07/01/24. 3. Elevated LFTs. 4. S/p recent lap histerectromy. Plan: 1. Zosyn (day 5). 2. If cultures remain neg, can switch to empiric ciprofloxacin and metronidazole once pt is ready for discharge. 3. Duration: 7-10 days from drainage., 4. Monitor CBC. 5. Monitor kidney function. 6. Follow LFTs. 7. F/u with DIRECTOR OF CAREER RESOURCES. 8. Plan discussed with pt. Thank you for this consult. at 1333 RPT #: [id number] END OF REPORT [facility] 2024-07-02 12:48:00 [facility]) Hospitalist Progress Note REPORT#:[id number] REPORT STATUS: Signed REPORT INITIALIZATION DATE:07/02/24 TIME:1248 PATIENT: BRICE DELATORRE UNIT #: [id number] ROOM/BED: [place] [address] : 74 AGE: 48 SEX: F ATTEND: Levon Hurley MD ADM AUTHOR: Levon Hurley MD REPT SERVICE DT/TIME: 07/02/24 1248 * ALL edits or amendments must be made on the electronic/computer document * Subjective Chief complaint: Abdominal Pain HPI: 48-year-old female, postop day 6 status post laparoscopic hysterectomy who was transferred from [facility] for a postoperative vaginal cuff abscess. The patient complains of pelvic pain and bilateral lower abdominal pain associated with fever, 101.3 Fahrenheit at home. She was seen at [facility] emergency department and had a CT which showed a large lobulated vaginal cuff abscess. Dr. Puckett was consulted and recommended transfer to [facility] for further management Objective General VS/I O: Vital Signs: Date Time Temp Pulse Resp B/P B/P Pulse O2 O2 Flow FiO2 Mean Ox Delivery Rate 07/02 1118 97.5 86 14 96/59 71.7 91 Room air 07/02 0721 98.2 79 14 99/66 77.0 91 Room air 07/02 0412 98.1 82 16 104/70 81.3 93 Room air 07/01 2342 98.1 90 16 108/72 83.7 93 Room air 07/01 2059 94 109/67 81.1 07/01 1943 Nasal 2 cannula 07/01 1917 98.2 95 16 110/72 84.7 98 Room air 07/01 1652 98.8 104 16 105/68 80.0 96 Room air 07/01 1400 97.9 98 123/82 95 97 Room air 07/01 1335 103 34 125/90 98 Room air 07/01 1325 95 33 117/81 93 Room air 07/01 1320 92 28 116/76 95 Room air 07/01 1315 98 28 117/74 96 Room air 07/01 1310 96 28 128/83 96 Room air 07/01 1305 109 24 124/84 97 Room air 07/01 1302 98.0 99 18 137/83 97 Room air 24 hour I O ending at 0700: 07/02 0700 07/01 1900 Intake Total 500 100.00 Output Total 20 Balance 480 100.00 Intake, IV 100.00 Intake, Oral 500 Number Voids 2 Output, 20 Drainage PATIENT WEIGHT: Weight (lb): Weight (oz): Weight (kg): 68.182 Medications: Active Meds + DC'd Last 24 Hrs Docusate Sodium (COLACE) 100 MG BID PO Pregabalin (LYRICA) 75 MG BID PO Calcium Carbonate (TUMS) 500 MG Q6H PRN PRN PO Morphine Sulfate (morphine SULFATE) 4 MG ONCE ONE IV (DC) Acetaminophen (TYLENOL EXTRA STRENGTH) 500 MG ONCE ONE PO (DC) Hydrocodone Bitart/Acetaminophen (NORCO 5/325) 1 TAB PACU ONCE PRN PO ( DC) Hydrocodone Bitart/Acetaminophen (NORCO 10/325) 1 TAB PACU ONCE PRN PO ( DC) Hydrocodone Bitart/Acetaminophen (NORCO 7.5/325) 2 TAB Q4H PRN PRN PO Hydromorphone HCl (DILAUDID) 0.5 MG PACU Q10MIN PRN PRN IV (DC) Labetalol HCl (TRANDATE) 5 MG PACU Q10MIN PRN PRN IV (DC) Lactated Ringer's (LACTATED RINGERS) 1,000 ML ASDIR IV (DC) Meperidine HCl (DEMEROL) 12.5 MG PACU ONCE PRN IV (DC) Ondansetron HCl (ZOFRAN) 4 MG PACU ONCE PRN IV (DC) Ondansetron HCl (ZOFRAN) 8 MG Q8H PRN PRN PO Ondansetron HCl (ZOFRAN) 8 MG Q8H PRN PRN IV Lidocaine HCl (Xylocaine 1%) 20 ML ONCALL LOCAL Sodium Chloride (0.9% Sodium Chloride) 500 ML ONCALL IV Acetaminophen (TYLENOL) 650 MG Q6H PRN PRN PO Nicotine (NICODERM) 14 MG DAILY TRANSDERM Fentanyl Citrate (SUBLIMAZE) 100 MCG ONCALL IV (CKD) Lidocaine HCl (Xylocaine 1%) 20 ML ONCALL LOCAL Midazolam HCl (VERSED) 2 MG ONCALL IV (CKD) Quetiapine Fumarate (SeroqueL) 25 MG BEDTIME PO Trazodone HCl (DESYREL) 50 MG BEDTIME PO Ondansetron HCl (ZOFRAN) 4 MG Q4H PRN PRN IV Hydrocodone Bitart/Acetaminophen (NORCO 5/325) 1 TAB Q4H PRN PRN PO Morphine Sulfate (morphine Sulfate) 2 MG Q4H PRN PRN IV Piperacillin Sod/Tazobactam Sod (ZOSYN) 3.375 GM Q8HR IV Sodium Chloride (SODIUM CHLORIDE 0.9% MBP) 100 ML Dietitian nutrition assessment The data set between the solid lines has been imported from the dietitian's assessment. BMI Calculated: 25.0 Nutrition related diagnosis: Nutrition diagnosis details: Nutrition problem: Nutrition etiology: Acute illness, Decreased/poor appetite Nutrition signs and symptoms: mild muscle and subcutaenous, fat loss, intakes < 75% for 1 week Nutrition prescription: 1) Continue regular diet as medically feasible 2) Recommend ensure BID to aid in PO intakes 3) Consider bowel regimen d/t LBM "sometime last week" 4) Biweekly wt checks Dietitian name: Assessment completed: Results Radiology data: Recent Impressions: SPECIAL PROCEDURES - SP PERC DRAIN 07/01 1259 Report Impression - Status: SIGNED Entered: 07/01/2024 8393 IMPRESSION: Pelvic abscess drainage catheter placement under ultrasound and fluoroscopic guidance through a right lower quadrant approach. Impression By: ConniePKIlana Rosario M.D. Free Text Obj Notes Free Text Obj Notes: Physical Exam General appearance: alert, awake, oriented HEENT : normocephalic ,Atraumatic Eyes: Eyes normal inspection. ENT: Dry mucous membranes present. Neck: Normal inspection. Neck supple. CVS: Normal heart rate and rhythm. Heart sounds normal. Respiratory: No respiratory distress. Breath sounds normal. Abdomen: Soft and nontender. Genitourinary: no bladder distention Back: Normal inspection. Skin: Skin warm. Normal skin color. No rash. Extremities: No lower extremity edema. Neuro: Oriented X 3. No motor deficit No generalized lymph adenopathy Psych normal affect Diagnosis, Assessment Plan Problem List/A P: 1. Postoperative abscess 2. History of laparoscopic-assisted vaginal hysterectomy 3. Sepsis Free Text DxA P Notes Free text DxA P notes: Postoperative abscess with cough History of laparoscopic hysterectomy Sepsis IV hydration Monitor closely on telemetry Started on IV antibiotic Appreciate help from PAYROLL TAX ANALYST Consult IR for aspiration Will obtain cultures Monitor CBC daily GI/DVT prophylaxis Advanced directive full code IR consult appreciated Status post aspiration Awaiting cultures Monitor closely Discussed with Dr. Montenegro Awaiting cultures at 1249 RPT #: [id number] END OF REPORT [facility] 2024-07-01 10:03:00 [facility] ([facility]) Hospitalist Progress Note REPORT#:[id number] REPORT STATUS: Signed REPORT INITIALIZATION DATE:07/01/24 TIME:1003 PATIENT: BRICE DELATORRE UNIT #: [id number] ROOM/BED: [place] [id number] : 74 AGE: 48 SEX: F ATTEND: Levon Hurley MD ADM AUTHOR: Levon Hurley MD REPT SERVICE DT/TIME: 07/01/24 1003 * ALL edits or amendments must be made on the electronic/computer document * Subjective Chief complaint: Abdominal Pain HPI: 48-year-old female, postop day 6 status post laparoscopic hysterectomy who was transferred from [facility] for a postoperative vaginal cuff abscess. The patient complains of pelvic pain and bilateral lower abdominal pain associated with fever, 101.3 Fahrenheit at home. She was seen at [facility] emergency department and had a CT which showed a large lobulated vaginal cuff abscess. Dr. Puckett was consulted and recommended transfer to [facility] for further management Objective General VS/I O: Vital Signs: Temp Pulse Resp B/P B/P Pulse O2 O2 Flow FiO2 Mean Ox Delivery Rate 97.5 86 14 96/59 71.7 91 Room air 98.2 79 14 99/66 77.0 91 Room air 98.1 82 16 104/70 81.3 93 Room air 98.1 90 16 108/72 83.7 93 Room air 94 109/67 81.1 Nasal 2 cannula 98.2 95 16 110/72 84.7 98 Room air 98.8 104 16 105/68 80.0 96 Room air 97.9 98 123/82 95 97 Room air 103 34 125/90 98 Room air 95 33 117/81 93 Room air 92 28 116/76 95 Room air 98 28 117/74 96 Room air 96 28 128/83 96 Room air 109 24 124/84 97 Room air 98.0 99 18 137/83 97 Room air Medications: Active Meds + DC'd Last 24 Hrs Docusate Sodium (COLACE) 100 MG BID PO Pregabalin (LYRICA) 75 MG BID PO Calcium Carbonate (TUMS) 500 MG Q6H PRN PRN PO Morphine Sulfate (morphine SULFATE) 4 MG ONCE ONE IV (DC) Acetaminophen (TYLENOL EXTRA STRENGTH) 500 MG ONCE ONE PO (DC) Hydrocodone Bitart/Acetaminophen (NORCO 5/325) 1 TAB PACU ONCE PRN PO ( DC) Hydrocodone Bitart/Acetaminophen (NORCO 10/325) 1 TAB PACU ONCE PRN PO ( DC) Hydrocodone Bitart/Acetaminophen (NORCO 7.5/325) 2 TAB Q4H PRN PRN PO Hydromorphone HCl (DILAUDID) 0.5 MG PACU Q10MIN PRN PRN IV (DC) Labetalol HCl (TRANDATE) 5 MG PACU Q10MIN PRN PRN IV (DC) Lactated Ringer's (LACTATED RINGERS) 1,000 ML ASDIR IV (DC) Meperidine HCl (DEMEROL) 12.5 MG PACU ONCE PRN IV (DC) Ondansetron HCl (ZOFRAN) 4 MG PACU ONCE PRN IV (DC) Ondansetron HCl (ZOFRAN) 8 MG Q8H PRN PRN PO Ondansetron HCl (ZOFRAN) 8 MG Q8H PRN PRN IV Lidocaine HCl (Xylocaine 1%) 20 ML ONCALL LOCAL Sodium Chloride (0.9% Sodium Chloride) 500 ML ONCALL IV Acetaminophen (TYLENOL) 650 MG Q6H PRN PRN PO Nicotine (NICODERM) 14 MG DAILY TRANSDERM Fentanyl Citrate (SUBLIMAZE) 100 MCG ONCALL IV (CKD) Lidocaine HCl (Xylocaine 1%) 20 ML ONCALL LOCAL Midazolam HCl (VERSED) 2 MG ONCALL IV (CKD) Quetiapine Fumarate (SeroqueL) 25 MG BEDTIME PO Trazodone HCl (DESYREL) 50 MG BEDTIME PO Ondansetron HCl (ZOFRAN) 4 MG Q4H PRN PRN IV Hydrocodone Bitart/Acetaminophen (NORCO 5/325) 1 TAB Q4H PRN PRN PO Morphine Sulfate (morphine Sulfate) 2 MG Q4H PRN PRN IV Piperacillin Sod/Tazobactam Sod (ZOSYN) 3.375 GM Q8HR IV Sodium Chloride (SODIUM CHLORIDE 0.9% MBP) 100 ML Dietitian nutrition assessment The data set between the solid lines has been imported from the dietitian's assessment. BMI Calculated: 25.0 Nutrition related diagnosis: Nutrition diagnosis details: Nutrition problem: Nutrition etiology: Acute illness, Decreased/poor appetite Nutrition signs and symptoms: mild muscle and subcutaenous, fat loss, intakes < 75% for 1 week Nutrition prescription: 1) Continue regular diet as medically feasible 2) Recommend ensure BID to aid in PO intakes 3) Consider bowel regimen d/t LBM "sometime last week" 4) Biweekly wt checks Dietitian name: Assessment completed: Results Radiology data: Recent Impressions: SPECIAL PROCEDURES - SP PERC DRAIN 07/01 1259 Report Impression - Status: SIGNED Entered: 07/01/2024 1426 IMPRESSION: Pelvic abscess drainage catheter placement under ultrasound and fluoroscopic guidance through a right lower quadrant approach. Impression By: [email or web address] Luz Rosario M.D. Free Text Obj Notes Free Text Obj Notes: Physical Exam General appearance: alert, awake, oriented HEENT : normocephalic ,Atraumatic Eyes: Eyes normal inspection. ENT: Dry mucous membranes present. Neck: Normal inspection. Neck supple. CVS: Normal heart rate and rhythm. Heart sounds normal. Respiratory: No respiratory distress. Breath sounds normal. Abdomen: Soft and nontender. Genitourinary: no bladder distention Back: Normal inspection. Skin: Skin warm. Normal skin color. No rash. Extremities: No lower extremity edema. Neuro: Oriented X 3. No motor deficit No generalized lymph adenopathy Psych normal affect Diagnosis, Assessment Plan Problem List/A P: 1. Postoperative abscess 2. History of laparoscopic-assisted vaginal hysterectomy 3. Sepsis Free Text DxA P Notes Free text DxA P notes: Postoperative abscess with cough History of laparoscopic hysterectomy Sepsis IV hydration Monitor closely on telemetry Started on IV antibiotic Appreciate help from PAYROLL TAX ANALYST Consult IR for aspiration Will obtain cultures Monitor CBC daily GI/DVT prophylaxis Advanced directive full code IR consult appreciated Status post aspiration Awaiting cultures Monitor closely at 1248 RPT #: [id number] END OF REPORT [facility] 2024-06-30 19:19:00 [id number] [facility] [id number] [place] [id number] PATIENT NAME: BRICE DELATORRE ADMIT DATE: 06/29/24 ACCOUNT NO: [id number] ROOM NO: [facility] AGE: 49 REPORT TYPE: CONSULTATION SEX: F ADMITTING PHYSICIAN: Levon Hurley MD ATTENDING PHYSICIAN: Levon Hurley MD CONSULTATION DATE: 06/30/2024 REASON FOR CONSULTATION: A 1-week postop with a pelvic collection suspicious for a pelvic abscess, leukocytosis, transferred from [facility] in [place] for these diagnoses. HISTORY OF PRESENT ILLNESS: The patient is a 48-year-old postop day #8 today with complaints of pelvic pain and a fever of 102 that took her to the emergency room yesterday. The patient had reported nausea and was called in [facility] on Sunday at the close of office time. She denied having any fever. Her temperature was only 97 at the time. Denied any chills, vomiting, was passing gas, and had a bowel movement, and was tolerating diet minimally. She called on Sunday morning with complaints of hot flashes and mood swings, which was severe and requested treatment for her menopausal symptoms; however, she was given precautions to monitor her temperature closely as a complaint that was suspicious for an upcoming febrile event. Nausea and vomiting have completely subsided on Sunday. On Sunday, she went to the hospital at [place], and was diagnosed with a pelvic collection on CT scan and a white count of 15.6. After I received a call from the transfer center at [facility], I was connected with the ER attending at [facility]. We discussed the patient's case and I requested a transfer to [facility] in order for her to continue under my care, under the hospitalist here. She had no shortness of breath, chest pain. The patient had denied any complaints of leg swelling, headaches. All other review of systems were negative. Today, the patient is doing well. Pain is minimal. An IR drain was attempted; however, the patient is unable to tolerate this and therefore, she is scheduled for intervention tomorrow, tolerating diet, passing flatus. No nausea or vomiting. She was with her in the bed when I had seen her today. PAST SURGICAL HISTORY: Significant for, 1. Robotic-assisted total laparoscopic hysterectomy. 2. Bilateral salpingectomy. 3. Left oophorectomy. 4. Right ovariopexy. SOCIAL HISTORY: She is also a smoker and has been counseled strongly to completely stop smoking; however, she was on a weaning plan. PATIENT NAME: BRICE DELATORRE MEDICATION: She has been on Zosyn 3.375 every 8 hours since yesterday, which was started at [facility] and continued to clinically improve with her pain. PHYSICAL EXAMINATION: VITAL SIGNS: She is afebrile today. GENERAL: In no acute distress. HEENT/NECK: No pallor. Anicteric. Head and neck exam unremarkable. ABDOMEN: Soft. Incision is clean, dry, and intact. Minimally distended and tender. EXTREMITIES: No edema or calf tenderness. LABORATORY DATA: Her white cell count came down to 13.6. Labs as discussed. IMAGING STUDIES: CT scan was reviewed in the chart that was placed in the chart. This showed a 9 cm pelvic collection, likely suspicious for an abscess. No evidence of any bowel involvement. The patient denies any vaginal discharge. Therefore, most likely just a collection that has not drained. IMPRESSION: 1. Pelvic pain, likely related to the pelvic abscess. 2. Pelvic fluid collection suspicious for a vaginal cuff abscess, needs interventional drainage, who attempted ultrasound-guided drainage here in the hospital tomorrow. PLAN: Continue IV antibiotics and check a CBC tomorrow and follow conservatively and regular diet at this time. Nothing by mouth past midnight. All the plan under Dr. Hurley, hospitalist, and I am in touch with them for all her hospital course. I reviewed the diagnoses and her potential plan and possible discharge in 36 to 48 hours and oral antibiotics to subsequently continue. The patient understands. Dictated By: Saulo Montenegro MD Date Dictated: 06/30/2024 19:19:54 Date Transcribed: 06/30/2024 23:07:02 HORACE/VERONIKA/MARLENY Receipt ID: [id number] Authenticated by Saulo Montenegro MD On 2024 06:40:54 PM at 0640 PATIENT NAME: BRICE DELATORRE [facility] 2024-06-30 10:42:00 [facility] Hospitalist Progress Note REPORT#:[id number] REPORT STATUS: Signed REPORT INITIALIZATION DATE:06/30/24 TIME:1042 PATIENT: BRICE DELATORRE UNIT #: [id number] ROOM/BED: [facility]06-1 : 74 AGE: 48 SEX: F ATTEND: Levon Hurley MD ADM AUTHOR: Levon Hurley MD REPT SERVICE DT/TIME: 06/30/24 1042 * ALL edits or amendments must be made on the electronic/computer document * Subjective Chief complaint: Abdominal Pain HPI: 48-year-old female, postop day 6 status post laparoscopic hysterectomy who was transferred from [facility] for a postoperative vaginal cuff abscess. The patient complains of pelvic pain and bilateral lower abdominal pain associated with fever, 101.3 Fahrenheit at home. She was seen at [facility] emergency department and had a CT which showed a large lobulated vaginal cuff abscess. Dr. Puckett was consulted and recommended transfer to [facility] for further management Objective General VS/I O: Vital Signs: Date Time Temp Pulse Resp B/P B/P Pulse O2 O2 Flow FiO2 Mean Ox Delivery Rate 06/30 0751 97.7 95 16 114/79 90.8 96 Room air 06/30 0430 93 95 06/30 0429 98.2 92 16 103/68 79.7 92 06/29 2310 98.2 82 18 115/77 89 95 06/29 2224 89 118/70 88 92 06/29 2044 90 108/78 90 92 06/296 87 98/75 84 94 06/29 2017 81 118/75 91 94 06/29 1922 98.4 80 18 114/77 89 99 Room air 24 hour I O ending at 0700: 06/30 0700 06/29 1900 Intake Total 100.00 Output Total Balance 100.00 Intake, IV 100.00 Patient 150 lb Weight Weight Estimated Measurement Method PATIENT WEIGHT: Weight (lb): Weight (oz): Weight (kg): 68.182 Medications: Active Meds + DC'd Last 24 Hrs Quetiapine Fumarate (SeroqueL) 25 MG BEDTIME PO (DC) Trazodone HCl (DESYREL) 50 MG BEDTIME PO (DC) Fentanyl Citrate (SUBLIMAZE) 100 MCG ONCALL IV (CKD) Lidocaine HCl (Xylocaine 1%) 20 ML ONCALL LOCAL Midazolam HCl (VERSED) 2 MG ONCALL IV (CKD) Quetiapine Fumarate (SeroqueL) 25 MG BEDTIME PO Trazodone HCl (DESYREL) 50 MG BEDTIME PO Ondansetron HCl (ZOFRAN) 4 MG Q4H PRN PRN IV Hydrocodone Bitart/Acetaminophen (NORCO 5/325) 1 TAB Q4H PRN PRN PO Morphine Sulfate (morphine Sulfate) 2 MG Q4H PRN PRN IV Piperacillin Sod/Tazobactam Sod (ZOSYN) 3.375 GM Q8HR IV Sodium Chloride (SODIUM CHLORIDE 0.9% MBP) 100 ML Dietitian nutrition assessment The data set between the solid lines has been imported from the dietitian's assessment. BMI Calculated: 25.0 Nutrition related diagnosis: Nutrition diagnosis details: Nutrition problem: Nutrition etiology: Nutrition signs and symptoms: Nutrition prescription: Dietitian name: Assessment completed: Results Findings/Data: Laboratory Tests 06/30/24 035: [Embedded Image Not Available] 06/30/24 035: [Embedded Image Not Available] Laboratory Tests 06/30 355 Chemistry Sodium (136 - 145 mmol/L) 138 Potassium (3.4 - 5.0 mmol/L) 4.0 Chloride (98 - 107 mmol/L) 102 Carbon Dioxide (21 - 32 mmol/L) 26 Anion Gap (4 - 15 GAP calc) 10 BUN (7 - 18 MG/DL) 18 Creatinine (0.6 - 1.0 MG/DL) 0.6 Glomerular Filtr Rate (>60 estGFR) >=60 max estimate Glucose (70 - 110 MG/DL) 83 Calcium (8.5 - 10.1 MG/DL) 8.5 Total Bilirubin (0.0 - 1.0 MG/DL) 0.8 AST (15 - 37 Unit/L) 50 H ALT (30 - 65 Unit/L) 85 H Total Alk Phosphatase (50 - 136 Unit/L) 220 H Total Protein (6.4 - 8.2 G/DL) 6.8 Albumin (3.4 - 5.0 G/DL) 2.6 L Globulin (GM/dL) 4.2 Albumin/Globulin Ratio (1.2 - 2.2 RATIO) 0.6 L Laboratory Tests 06/30 0356 Coagulation INR (0.8 - 1.2 INR Unit) 1.16 PTT ([place]) (26 - 35 SECONDS) 32.2 PT Patient/Control Mix (9.3 - 12.9 SECONDS) 12.8 Laboratory Tests 06/30 0357 Hematology WBC (3.5 - 11.0 K/mm3) 13.6 H RBC (4.70 - 6.10 M/mm3) 4.01 L Hgb (10.4 - 14.9 G/DL) 11.6 Hct (31.5 - 44.1 %) 35.6 MCV (84.5 - 98.6 Fl) 88.8 MCH (27.0 - 34.2 pg) 28.9 MCHC (31.5 - 34.0 G/DL) 32.6 RDW (11.5 - 14.5 SD) 13.3 Plt Count (150 - 450 K/mm3) 270 MPV (7.0 - 10.5 fL) 9.40 Neut % (Auto) (40 - 76 %) 82.2 H Lymph % (Auto) (20.5 - 51.1 %) 9.3 L Morrison % (Auto) (1.7 - 9.3 %) 6.7 Eos % (Auto) (0.0 - 6.0 %) 1.0 Baso % (Auto) (0.0 - 2.0 %) 0.3 Neut # (Auto) (1.8 - 7.6 K/mm3) 11.2 H Lymph # (Auto) (0.6 - 3.2 K/mm3) 1.3 Morrison # (Auto) (0.3 - 1.1 K/mm3) 0.9 Eos # (Auto) (0.0 - 0.4 K/mm3) 0.1 Baso # (Auto) (0.0 - 0.1 K/mm3) 0.0 Abs Immat Gran (auto) (0.00 - 0.03 x10 3/uL) 0.07 H Immature Gran % (0.0 - 5.0 %) 0.5 Nucleated RBC % (0.0 - 1.0 /100WBC%) 0.0 Radiology data: Recent Impressions: RADIOLOGY - XR CHEST 1 V 06/30 0422 Report Impression - Status: SIGNED Entered: 06/30/2024 0534 IMPRESSION: No acute cardiopulmonary findings. Left PICC tip is in the SVC. Impression By: Kori - Yunior Clancy M.D. Free Text Obj Notes Free Text Obj Notes: Physical Exam General appearance: alert, awake, oriented HEENT : normocephalic ,Atraumatic Eyes: Eyes normal inspection. ENT: Dry mucous membranes present. Neck: Normal inspection. Neck supple. CVS: Normal heart rate and rhythm. Heart sounds normal. Respiratory: No respiratory distress. Breath sounds normal. Abdomen: Soft and nontender. Genitourinary: no bladder distention Back: Normal inspection. Skin: Skin warm. Normal skin color. No rash. Extremities: No lower extremity edema. Neuro: Oriented X 3. No motor deficit No generalized lymph adenopathy Psych normal affect Diagnosis, Assessment Plan Problem List/A P: 1. History of laparoscopic-assisted vaginal hysterectomy 2. Postoperative abscess Free Text DxA P Notes Free text DxA P notes: Postoperative abscess with cough History of laparoscopic hysterectomy Sepsis IV hydration Monitor closely on telemetry Started on IV antibiotic Appreciate help from [employer]ROLL T[employer] ANALYST Consult IR for aspiration Will obtain cultures Monitor CBC daily GI/DVT prophylaxis Advanced directive full code at 1114 RPT #: [id number] END OF REPORT [facility] 2024-06-29 21:46:00 [facility] ([facility]) Hospitalist History Physical REPORT#:[id number] REPORT STATUS: Signed REPORT INITIALIZATION DATE:06/29/24 TIME:2145 PATIENT: BRICE DELATORRE UNIT #: [id number] ROOM/BED: [place] [address] : 74 AGE: 48 SEX: F ATTEND: Levon Hurley MD ADM AUTHOR: Levon Hurley MD REPT SERVICE DT/TIME: 06/29/242145 * ALL edits or amendments must be made on the electronic/computer document * History of Present Illness HPI Chief complaint: Abdominal Pain HPI: 48-year-old female, with postop day 6 status post laparoscopic hysterectomy who was transferred from [facility] for a postoperative vaginal cuff abscess. The patient complains of pelvic pain and bilateral lower abdominal pain associated with fever, 101.3 Fahrenheit at home. She was seen at [facility] emergency department and had a CT which showed a large lobulated vaginal cuff abscess. Dr. Puckett was consulted and recommended transfer to [facility] for further management Patient was assessed in the ER and is admitted for further management and possible aspiration of abscess History Past Medical Surgical Hx Additional medical history: No significant past medical history Additional surgical history: Laparoscopic hysterectomy Family History Family history: Reports: Hypertension. Social History Smoking status for patients 13 years old or older: Never Smoker Medication/Allergy-Vaccine Hx Medications: Home Medications: traZODone (DESYREL) 50 MG PO BEDTIME QUEtiapine (SEROquel) 25 MG PO BEDTIME ACETAMINOPHEN/CODEINE (TYLENOL WITH CODEINE #3 300/30 MG) 1 TAB PO Q6H PRN PRN ACUTE PAIN MDD 4 Allergies: Coded Allergies: No Known Allergies (06/19/24) Review of Systems Free Text ROS Notes Free Text ROS Notes: Constitutional: Reports: generalized weakness. Skin: Denies: rash. Allergy/Immun: Denies: rhinorrhea, sneezing. Eyes: Denies: visual loss/blurred. ENT: Denies: earache, nasal congestion. Respiratory: Denies: non productive cough. Cardiovascular: Denies: chest pain, palpitations. GI: Denies: diarrhea, nausea. : Denies: dysuria. Musculoskeletal: Reports: arthritis. Denies: extremity pain. Heme: Denies: bleeding. Endocrine: Denies: polydipsia. Neuro: Reports: dizziness, gait problem, lightheaded, spinning sensation. Psych: Reports: anxiety. All systems rev neg: except as noted OBJECTIVE VS/I O: Vital Signs Date Temp Pulse Resp B/P B/P Mean Pulse Ox FiO2 06/29 98.4 80 18 114/77 89 99 Last Documented: Result Date Time Pulse Ox 99 06/29 1921 B/P 114/77 01/26 1922 B/P Mean 89 06/29 1921 O2 Delivery Room air 06/29 1921 Temp 98.4 06/29 1921 Pulse 80 06/29 1921 Resp 18 06/29 1921 Patient Weight and BMI Weight (kg): 68.182 BMI: 25.0 Physical Exam General appearance: alert, awake, oriented HEENT : normocephalic ,Atraumatic Eyes: Eyes normal inspection. ENT: Dry mucous membranes present. Neck: Normal inspection. Neck supple. CVS: Normal heart rate and rhythm. Heart sounds normal. Respiratory: No respiratory distress. Breath sounds normal. Abdomen: Soft and nontender. Genitourinary: no bladder distention Back: Normal inspection. Skin: Skin warm. Normal skin color. No rash. Extremities: No lower extremity edema. Neuro: Oriented X 3. No motor deficit No generalized lymph adenopathy Psych normal affect Medications: Active Meds + DC'd Last 24 Hrs Hydrocodone Bitart/Acetaminophen (NORCO 5/325) 1 TAB Q4H PRN PRN PO Morphine Sulfate (morphine Sulfate) 2 MG Q4H PRN PRN IV Piperacillin Sod/Tazobactam Sod (ZOSYN) 3.375 GM Q8HR IV Sodium Chloride (SODIUM CHLORIDE 0.9% MBP) 100 ML Diagnosis, Assessment Plan Problem List/A P: 1. Postoperative abscess 2. History of laparoscopic-assisted vaginal hysterectomy 3. Sepsis Free Text A P: Postoperative abscess with cough History of laparoscopic hysterectomy Sepsis IV hydration Monitor closely on telemetry Started on IV antibiotic Appreciate help from [employer]LL T[employer] ANALYST Consult IR for aspiration Will obtain cultures Monitor CBC daily GI/DVT prophylaxis Advanced directive full code at 1116 RPT #: [id number] END OF REPORT [facility] 2024-06-29 19:33:00 [facility] ([facility]) EMERGENCY PROVIDER REPORT REPORT#:[id number] REPORT STATUS: Signed DATE:06/29/24 TIME:1932 PATIENT: BRICE DELATORRE UNIT #: [id number] ROOM/BED: [place] [address] : 74 AGE: 48 SEX: F PCP PHYS: Saulo Montenegro MD SERVICE AUTHOR: Aracelis Barroso MD REP SRV REP SRV TM: 1933 * ALL edits or amendments must be made on the electronic/computer document * HPI-General Illness General Initial Greet Date/Time 06/29/241927 Presentation Chief Complaint Abdominal pain Free Text HPI Notes Free Text HPI Notes 48-year-old female, postop day 6 status post laparoscopic hysterectomy who was transferred from [facility] for a postoperative vaginal cuff abscess. The patient complains of pelvic pain and bilateral lower abdominal pain associated with fever, 101.3 Fahrenheit at home. She was seen at [facility] emergency department and had a CT which showed a large lobulated vaginal cuff abscess. Dr. Puckett was consulted and recommended transfer to [facility] for further management External records reviewed from transferring hospital [facility]: Patient received morphine 4 mg x 2 doses, Zofran 4 mg IV, Zosyn 3.375 mg IV given on 06/29/[address] abdomen and pelvis showed a large loculated abscess along the vaginal cuff. Vaginal cuff dehiscence is not entirely excluded. Diffuse bladder wall thickening is possibly reactive however correlation with urinalysis is recommended to exclude cystitis. Free air in the peritoneum as well as myofascial area along the left abdominal wall are favored to be secondary to recent surgical intervention. Age indeterminate T11 superior endplate deformity. Recommend correlation f with point tenderness. White blood cells 15.6 hemoglobin 13.6 platelets 312 sodium 132 potassium 4.4 chloride 98 bicarbonate 27 BUN 28 glucose 103 creatinine 0.63 alk phos 284 ALT 110 AST 68, otherwise LFTs within normal limits. Vital signs on arrival were temperature 37.1 C heart rate 108 respiratory rate 18 blood pressure 112/78 oxygen saturation 100% on room air Review of Systems ROS Statements All systems rev neg except as marked. Past Medical History - Adult Stated Complaint POST HYSTERECTOMY ABCESS/ABD PAIN/ FEVERS Allergies Coded Allergies: No Known Allergies (06/19/24) Home Medications Active Scripts ACETAMINOPHEN/CODEINE (TYLENOL WITH CODEINE #3 300/30 MG) 1 TAB PO Q6H PRN PRN ACUTE PAIN MDD 4 7 Days #15 TABS Prov: 06/23/24 Reported Medications traZODone (DESYREL) 50 MG PO BEDTIME QUEtiapine (SEROquel) 25 MG PO BEDTIME Physical Exam Vital Signs Vital Signs First Documented: Result Date Time Pulse Ox 99 06/29 1921 B/P 114/77 06/29 1921 B/P Mean 89 06/29 1921 O2 Delivery Room air 06/29 1921 Temp 36.9 06/29 1921 Pulse 80 06/29 1921 Resp 18 06/29 1921 Last Documented: Result Date Time Pulse Ox 99 06/29 1921 B/P 114/77 06/29 1921 B/P Mean 89 06/29 1921 O2 Delivery Room air 06/29 1921 Temp 36.9 06/29 1921 Pulse 80 06/29 1921 Resp 18 06/29 1921 Review of Vital Signs Reviewed Free Text PE Notes Free Text PE Notes General/constitutional: Awake, alert, well-appearing, in no apparent distress Head: Atraumatic, normocephalic Eyes: Extraocular movements intact. No periorbital swelling. Conjunctiva clear. Ears/nose/throat: Airway patent. Mucous membranes moist. Respiratory/chest: Breath sounds clear bilaterally. No wheezing. Cardiovascular: Regular rate and rhythm. Abdomen: Soft, nontender, nondistended. Back: No CVA tenderness Extremities: No edema. No deformity. Skin: No rash Neurologic: patient alert and oriented x 3. Normal speech. Moving all extremities. Psychiatric: Mood and affect appropriate Interpretation Diagnostics Lab Results Interpretation Lab Imaging Statement Laboratory radiographic studies reviewed and considered in the medical decision-making. Re-Evaluation MDM Free Text MDM Notes Free Text MDM Notes 48-year-old female postop day 6 status post laparoscopic hysterectomy who was transferred from [facility] for a postoperative vaginal cuff abscess I spoke with the patient's immunologist, Dr. Montenegro, who recommended admission for IR drainage of abscess and continued IV Zosyn IR consult order placed I discussed the case with the hospitalist including plan of care, and the patient was accepted for admission We will place her on a clear liquid diet for now but she will need to be n.p.o. after midnight per Dr. Montenegro. Differential Diagnosis Differential Diagnosis postop infection, post op abscess, vaginal cuff dehiscence, sepsis Patient Discharge Departure Vital Signs/Condition Vital Signs First Documented: Result Date Time Pulse Ox 99 06/29 1921 B/P 114/77 06/29 1921 B/P Mean 89 06/29 1921 O2 Delivery Room air 06/29 1921 Temp 36.9 06/29 1921 Pulse 80 06/29 1921 Resp 18 06/29 1921 Last Documented: Result Date Time Pulse Ox 99 06/29 1921 B/P 114/77 06/29 1921 B/P Mean 89 06/29 1921 O2 Delivery Room air 06/29 1921 Temp 36.9 06/29 1921 Pulse 80 06/29 1921 Resp 18 06/29 1921 All vital signs available at the time of this entry have been reviewed. Condition Stable Clinical Impression Clinical Impression Primary Impression: Postoperative abscess Secondary Impressions: History of laparoscopic-assisted vaginal hysterectomy, Sepsis Disposition Decision Hospitalize Hosp Physician Name Levon Hurley MD [facility] Physician Hospitalist Request Time 1957 Request Date 06/29/24 )( Accepts Hospitalization Yes )( Reason for Hospitalization drainage of vaginal cuff abscess, sepsis )( Accepted Time 1999 )( Accepted Date 06/29/24 Call Information will see patient at 0035 RPT #: [id number] END OF REPORT [facility] 2024-06-29 18:36:22 Patient transferred to [facility] ED for diagnosis of post surgical abscess Patient agrees to transfer/admit plan and verbalized understanding of plan of care, family aware of plan Patient awake alert, oriented, resp reg unlabored, skin w/d PIV patent, no s/s infiltration noted, No adverse reaction to medications given while in ED. Report given to [facility] EMS personnel Report given to physician at [facility] ED [employer] Adrian Peñaloza RN [facility] [place] 2024-06-29 14:14:53 Pt had hysterectomy a week ago with Dr Montenegro. This morning pt had fever, pelvic pressure. She took codeine, 600mg ibuprofen and is afebrile on arrival to ED. Appears anxious. [employer]OR [employer] Nika Garcia RN [facility] [place] 2024-06-29 14:04:00 [facility] Emergency Department Note Patient Name: Brice Delatorre Date of : 1975 48 year old female Treatment Room: [facility] ED [facility] Primary Care Physician: Darlyn Molina Patient Escorted by: Family [5] Mode of Arrival: Personal means [1] EMS Treatment Prior to ED Arrival: Travel and Exposure Screening: Symptoms Does patient have any of these symptoms?: (not recorded) Exposure Screening Has patient had contact with someone with a communicable disease in the last month?: (not recorded) Diseases exposed to:: (not recorded) Is Patient ?: (not recorded) Exposure Date: (not recorded) Chief Complaint: Chief Complaint Patient presents with Post-Op History of Present Illness: HPI Brice Delatorre is a 48 year old female presenting with abdominal pain following recent hysterectomy (on Sunday06/23/24 in [place]). Patient reports pain since the surgery but with symptoms worsening and then reports fever of up to 102 today. Patient reports that it "feels like my insides are coming out". Patient denies nausea, vomiting or diarrhea symptoms. Past Medical History/Immunizations: Past Medical History: Diagnosis Date Arthritis Depression Allergies: No Known Allergies Past Social History: Tobacco Use Every Day; 1 pack/day; Types: Cigarettes Alcohol Use Not Currently. Drug Use No. Sexual Activity Sexually active. Past Surgical History: Past Surgical History: Procedure Laterality Date SECTION LAPAROSCOPIC CHOLECYSTECTOMY TUBAL LIGATION Review of Systems: Review of Systems Constitutional: Positive for activity change, appetite change, fatigue and fever. HENT: Negative for congestion, facial swelling and rhinorrhea. Eyes: Negative for photophobia and visual disturbance. Respiratory: Negative for apnea, cough, choking, chest tightness, shortness of breath, wheezing and stridor. Cardiovascular: Negative for chest pain, palpitations and leg swelling. Gastrointestinal: Positive for abdominal pain. Negative for abdominal distention, anal bleeding, blood in stool, constipation, diarrhea, nausea, rectal pain and vomiting. Genitourinary: Negative for dysuria. Neurological: Positive for weakness. Negative for dizziness, tremors, seizures, syncope, facial asymmetry, speech difficulty, light-headedness, numbness and headaches. Generalized weakness, no focal deficits Physical Exam: ED Triage Vitals [06/29/24 1416] Weight 54.4 kg (120 lb) Actual or estimated Estimated by patient/family report Height 1.575 m (5' 2") BP 112/78 Pulse 108 Resp 18 Temp 37.1 ?C (98.8 ?F) Temp source Oral SpO2 100 % Measured on Room air Physical Exam Vitals and nursing note reviewed. Constitutional: General: She is not in acute distress. Appearance: She is well-developed. She is not diaphoretic. HENT: Head: Normocephalic and atraumatic. Eyes: General: No scleral icterus. Right eye: No discharge. Left eye: No discharge. Conjunctiva/sclera: Conjunctivae normal. Cardiovascular: Rate and Rhythm: Normal rate and regular rhythm. Heart sounds: Normal heart sounds. No murmur heard. No friction rub. No gallop. Pulmonary: Effort: Pulmonary effort is normal. No respiratory distress. Breath sounds: Normal breath sounds. No wheezing. Chest: Chest wall: No tenderness. Abdominal: General: There is no distension. Palpations: Abdomen is soft. There is no mass. Tenderness: There is abdominal tenderness. There is no guarding or rebound. Comments: Periumbilical and suprapubic abdominal TTP Scars from laparoscopic surgery clean, dry and intact Musculoskeletal: Cervical back: Neck supple. Skin: General: Skin is warm and dry. Neurological: Mental Status: She is alert and oriented to person, place, and time. Cranial Nerves: No cranial nerve deficit. Coordination: Coordination normal. Psychiatric: Behavior: Behavior normal. Radiology: CT Abdomen pelvis w contrast Preliminary Result EXAM: CT abdomen pelvis with contrast HISTORY: 48 years-old Female; Abdominal pain, acute, nonlocalized TECHNIQUE: Contiguous axial imaging from the level of the lung bases through the iliac crests was performed with contrast. Coronal and sagittal reconstructions were obtained. COMPARISON: CT abdomen pelvis with contrast from March 25, 2024 FINDINGS: LOWER THORAX: No pleural effusion, consolidation, or mass. No pericardial effusion. LIVER: Smooth liver contour. Diffusely low background liver parenchyma density suggests steatosis. GALLBLADDER AND BILIARY TREE: Status post cholecystectomy. No significant intrahepatic or extrahepatic biliary duct dilation. SPLEEN: No focal mass or splenomegaly. PANCREAS: No ductal dilation or calcifications. ADRENAL GLANDS: Symmetric adrenal glands without nodularity or thickening. GENITOURINARY: Nephrograms are symmetric. Punctate nonobstructive left inferior pole calculus.No hydronephrosis or obstructive nephrolithiasis. Diffuse bladder wall thickening. PERITONEUM AND RETROPERITONEUM: Loculated peripherally enhancing air and fluid containing collection in the pelvis measuring 6.9 x 2.5 cm (2, 108). There is a pocket of free intra-abdominal air the superior midline abdomen, likely from recent surgical intervention. A (2, 55). LYMPH NODES: No lymphadenopathy. GI TRACT: No dilated bowel, transition point, or evidence of obstruction. VESSELS: No calcified atherosclerosis in the aorta and iliac arteries. BONES AND SOFT TISSUES: No acute fracture, dislocation, or aggressive osseous lesion.Myofascial air throughout the left abdominal wall, likely from recent surgical intervention. T11 superior endplate deformity. IMPRESSION 1. Large loculated abscess along the vaginal cuff. Vaginal cuff dehiscence is not entirely excluded. 2. Diffuse bladder wall thickening is possibly reactive, however, correlation with urinalysis is recommended to exclude cystitis. Free air in the peritoneum as well as myofascial air along the left abdominal wall are favored to be secondary to recent surgical intervention. 3. Age indeterminant T11 superior endplate deformity. Recommend correlation with point tenderness. Dr. Saucedo was notified of critical findings 3:55 PM. Preliminary Report Dictated by Resident: Alysia Freeman Lab Results: Lab Results CBC WITH DIFF - Abnormal Result Value Ref Range WBC 15.60 (*) 4.30 - 11.10 10*3/?L RBC 4.65 3.93 - 5.25 10*6/?L HGB 13.6 11.6 - 15.0 g/dL HCT 40.9 35.7 - 45.2 % MCV 88.0 80.6 - 95.5 fL MCH 29.2 25.9 - 32.8 pg MCHC 33.3 31.6 - 35.1 g/dL RDW-SD 43.7 39.0 - 49.9 fL RDW-CV 13.5 12.0 - 15.5 % PLT 312 166 - 358 10*3/?L MPV 9.6 9.5 - 12.9 fL NRBC/100 WBC 0.0 0.0 - 10.0 /100 WBCs NRBC x10 3 <0.01 10*3/?L GRAN MAT (NEUT) % 86.1 % IMM GRAN % 0.40 % LYMPH % 5.2 % MONO % 7.4 % EOS % 0.6 % BASO % 0.3 % GRAN MAT x10 3 (ANC) 13.44 (*) 1.88 - 7.09 10*3/uL IMM GRAN x10 3 0.06 0.00 - 0.06 10*3/uL LYMPH x10 3 0.81 (*) 1.32 - 3.29 10*3/uL MONO x10 3 1.15 (*) 0.33 - 0.92 10*3/uL EOS x10 3 0.09 0.03 - 0.39 10*3/uL BASO x10 3 0.05 0.01 - 0.07 10*3/uL COMP. METABOLIC PANEL (46977) - Abnormal NA 132 (*) 135 - 145 mmol/L K 4.4 3.5 - 5.0 mmol/L CL 98 98 - 108 mmol/L CO2 TOTAL 27 23 - 31 mmol/L AGAP 7 2 - 16 BUN 28 (*) 7 - 23 mg/dL GLUCOSE 103 70 - 110 mg/dL CREATININE 0.63 0.50 - 1.04 mg/dL TOTAL BILI 0.7 0.1 - 1.1 mg/dL CALCIUM 8.9 8.6 - 10.6 mg/dL T PROTEIN 7.8 6.3 - 8.2 g/dL ALBUMIN 4.1 3.5 - 5.0 g/dL ALK PHOS 284 (*) 34 - 122 U/L ALTv 110 (*) 5 - 35 U/L AST(SGOT) 68 (*) 13 - 40 U/L eGFR 108.9 mL/min/1.73m2 LIPASE - Normal LIPASE 122 0 - 220 U/L EKG: If EKG completed, see Procedure Note. Orders and Treatments: Orders Placed This Encounter Procedures CT Abdomen pelvis w contrast Cbc with Diff Comp. Metabolic Panel (60054) Lipase Orders Placed This Encounter Medications morpHINE (4 mg/mL) injection 4 mg ondansetron (ZOFRAN (PF)) injection 4 mg iopamidol (ISOVUE 370-500 mL) injection 85 mL morpHINE (4 mg/mL) injection 4 mg ondansetron (ZOFRAN (PF)) injection 4 mg First Provider Eval: ED Events Date/Time Event User Comments 06/29/24 1422 Medical Screening Begins YULY SAUCEDO MD -- 06/29/24 1422 First Provider Evaluation YULY SAUCEDO MD -- ED COURSE Diagnosis/Impression as of 06/29/24 1427 Abdominal pain, unspecified abdominal location Procedures: Procedures MDM: Medical Decision Making Brice Delatorre is a 48 year-old female presenting with abdominal pain following recent hysterectomy on 06/23/24. Patient's physician is Dr. Montenegro in [place] at [facility] Radiology called to inform that CT abdomen/pelvis showed pelvic wall abscess. Patient initiated on zosyn. Consulted screw machine operator, who reviewed imaging. Request made to have patient transferred to facility where surgery was done so that she can be treated there. I spoke with patient and patient also wanting to be transferred to be treated.Transfer request made and spoke with Dr. Montenegro who accepted the patient for transfer. Plan for transfer to [facility] for further care and management by physician who performed patient's surgery. Problems Addressed: Abdominal pain, unspecified abdominal location: acute illness or injury Amount and/or Complexity of Data Reviewed Labs: ordered. Radiology: ordered. Risk Prescription drug management. Parenteral controlled substances. Flowsheet Documentation: Scoring Tools: No data recorded Disposition/Condition: ED Disposition ED Disposition [facility] to IP/Obs Condition -- Comment -- Discharge Medications: Patient's Medications START taking these medications No medications on file CONTINUE taking these medications which have NOT CHANGED CEPHALEXIN 500 MG CAPSULE Take 1 capsule by mouth in the morning and 1 capsule in the evening. DIAZEPAM 10 MG TABLET Take by mouth. GABAPENTIN 300 MG CAPSULE Take 1 capsule by mouth in the morning and 1 capsule at noon and 1 capsule in the evening. IBUPROFEN 800 MG TABLET Take 1 tablet by mouth every 8 (eight) hours as needed for Pain (scale 1-3). KETOROLAC 10 MG TABLET Take 1 tablet by mouth every 6 (six) hours as needed for Pain (scale 7-10). NAPROXEN (NAPROSYN) 500 MG TABLET Take 1 tablet by mouth 2 (two) times daily with meals as needed for Alternate with [place] for pain scale 1-3. ONDANSETRON 4 MG DISINTEGRATING TABLET Take 1 tablet by mouth every 8 (eight) hours as needed for Nausea and Vomiting (N/V). ONDANSETRON 4 MG DISINTEGRATING TABLET Take 1 tablet by mouth every 8 (eight) hours as needed for Nausea and Vomiting (N/V). QUETIAPINE 25 MG TABLET TRAZODONE HCL (TRAZODONE ORAL) Take by mouth. START taking Modified Medications as Prescribed No medications on file STOP taking these medications No medications on file Follow-up: Electronically signed by: Yuly Saucedo MD 06/29/241739 [facility] 2024-06-23 19:15:00 [facility] ([facility]) Brief Op Note REPORT#:[id number] REPORT STATUS: Signed REPORT INITIALIZATION DATE:06/23/24 TIME:1914 PATIENT: BRICE DELATORRE UNIT #: [id number] ROOM/BED: : 74 AGE: 48 SEX: F ATTEND: Saulo Montenegro MD ADM AUTHOR: Sualo Montenegro MD REPT SERVICE DT/TIME: 06/23/241914 * ALL edits or amendments must be made on the electronic/computer document * Op/Inv Proc Note - Brief Pre-procedure diagnosis: menorrhagia, CIN2, Pelvic pain Post-procedure diagnosis: same as pre procedure dx, left ovarian cyst Procedures performed: RTLH BS, Left oophorectomy, right ovariopexy Primary Surgeon: amber Senior Clinical Project Manager(s): angela peter Anesthesia: general anesthesia Findings: minimal endo, holland master sinus in para rectal spaces, right ovariopexy Complications: none Estimated blood loss in ml's: 50 Specimens removed/altered: left ovary with cyst, jonathan tubes and uterus Urine output: 100 Approach: laparoscopic, leon Wound class: clean/contaminated Disposition: plan to D/C home Counts: Sponge count: correct Instrument count: correct Needle count: correct at 1918 RPT #: [id number] END OF REPORT [facility] 2024-06-23 19:04:00 [facility] ([facility]) Brief Op Note REPORT#:[id number] REPORT STATUS: Signed REPORT INITIALIZATION DATE:06/23/24 TIME:1903 PATIENT: BRICE DELATORRE UNIT #: [id number] ROOM/BED: : 74 AGE: 48 SEX: F ATTEND: Saulo Montenegro MD ADM AUTHOR: Saulo Montenegro MD REPT SERVICE DT/TIME: 06/23/241903 * ALL edits or amendments must be made on the electronic/computer document * See Addendum Op/Inv Proc Note - Brief Pre-procedure diagnosis: Menorrhagia Dysmenorrhea, Pelvic pain Post-procedure diagnosis: Stage 4 endometriosis, bilateral ureteric adhesions and rectosigmoid endometriosis Procedures performed: RTLH BSO Extensive endo excision, jonathan ureterolysis, cystoscopy, (SOPHIA rectosigmoid by Dr Mcdaniel) Primary Surgeon: amber Senior Clinical Project Manager(s): angela Peter and Harry Valle Anesthesia: general anesthesia Findings: extensive jonathan endo on bilat mesosalpinges, lateral green, USLs, ovaries and tubes, CDS obliteration, rt ovarian endometrioma, both ureters were dissected, cysto with patent UOs, cuff closed with interrupted 1 meri x5 and 2-0 v lock 2nd layer, remnant rectosig nodule and endo, appendix normal, no other endo left behind Complications: none Estimated blood loss in ml's: 100 Specimens removed/altered: ut jonathan ovaries and tubes and ant CDS endo Drain(s): None Fluids: 1200 Urine output: 150 Approach: laparoscopic, leon Wound class: clean/contaminated Disposition: plan to D/C home Counts: Sponge count: correct Instrument count: correct Cottonoid count: correct at 1913 Addendum 1: 06/23/241913 by Saulo Montenegro MD delete: wrong patient info New brief op note will be done, this must be discarded at 1915 RPT #: [id number] END OF REPORT [facility] 2024-06-23 14:43:00 [id number] [facility] [address] [place] [address] PATIENT NAME: BRICE DELATORRE ADMIT DATE: 06/23/24 ACCOUNT NO: [id number] ROOM NO: AGE: 49 REPORT TYPE: OPERATIVE REPORT SEX: F ADMITTING PHYSICIAN: ATTENDING PHYSICIAN: Saulo Montenegro MD OPERATION DATE: 06/23/2024 PREOPERATIVE DIAGNOSES: Menorrhagia, pelvic pain, and RAMBO 2 for severe cervical dysplasia. POSTOPERATIVE DIAGNOSES: Menorrhagia, pelvic pain, and RAMBO 2 for severe cervical dysplasia, possible left ovarian cystic mass, and potential site of endometriosis included with the specimen. PROCEDURES PERFORMED: Robotic-assisted total laparoscopic hysterectomy, bilateral salpingectomy, left oophorectomy, peritoneal implants of endometriosis in the distal left uterosacral ligament and lateral wall excised and included in the specimen, and right ovariopexy. SURGEON: Saulo Montenegro MD HISTORIC PRESERVATIONIST: Angela Peter. ANESTHESIA: General endotracheal. ESTIMATED BLOOD LOSS: 50 mL. URINE OUTPUT: 250 mL. SPECIMENS: Uterus, bilateral tubes, and left ovary. The cervix was removed in total. The left tube and ovary were attached, and the right tube distal portion was ligated and from the specimen but included in the same bucket. CONDITION: Stable. COUNTS: Correct. Discharged home. FINDINGS: Left ovary had a 3 cm cystic mass. The distal right tube had adhesions to the right lateral wall, suspected endometriosis of the distal left uterosacral ligament and left lateral wall, posterior broad ligament were noted. No other significant endometriotic implants seen, and 2 Holland master sinus cysts in the right and left posterior cul-de-sac. On close examination of the peritoneal surfaces, there was no evidence of any endometriotic implants, so these were not excised. PATIENT NAME: BRICE DELATORRE Vaginal cuff was closed in 2 layers. First layer was interrupted #1 Vicryl and 2 simple angle sutures and three [id number] in the middle, and then 2-0 V-Loc was used to close the entire cuff and a second layer imbricating the first layer for additional support and these include the two uterosacral ligaments into the closure. INDICATIONS: The patient is a 48-year-old with RAMBO 2 on cervical biopsy, also with menorrhagia and pelvic pain. A transvaginal ultrasound was done. Endometrial sampling was negative for atypia and malignancy. PAP had an atypical glandular cells, this could likely be from cervical dysplasia. The patient was counseled that doing a LEEP or cold knife cone or other options of treatment, however, she wanted her bleeding and pain as well as dysplasia, all treated and resolved. She is a smoker with a higher risk of persistence or recurrence or progression. After she was consented and understanding that there is a small risk of finding invasive dysplasia on the permanent specimen which would require further referral and treatment. She was brought to the hospital, consented for possible removal of left ovary endometriosis, excision if needed. PROCEDURE IN DETAIL: She was re-consented in the preoperative area with her at her bedside, then she was taken back to the OR. 2 grams of Ancef were given, placed in supine fashion on operating table, general anesthesia was given, and she was placed in a dorsal lithotomy position using Holland stirrups. Arms were tucked by the side. She was grounded, prepped on the abdomen with ChloraPrep. Vulva, vagina, and perineum with Betadine, and draped in a sterile fashion. Timeout was performed. Positioning was checked. SCDs were started and procedure started. Speculum was placed to expose the cervix. Anterior lip was grasped single tooth tenaculum, dilated to 16-Ecuadorean. A 3.5 cm cervical cup was introduced and fixed in place with the uterine manipulator. Tavera was placed to drain the bladder and attached to a drainage bag and this area was draped. One cm infraumbilical incision made with a scalpel using open laparoscopy technique. Fascia was incised and tagged with 0 Vicryl sutures. 0.5% Marcaine was used at all skin sites and fascia for local anesthetic. Park was introduced under direct vision after the peritoneum was entered sharply with an S retractor. The trocar was introduced. After adequate insufflation, camera was inserted. Site of entry was checked and was unremarkable. Two right 8 ports, left lateral another 8 robotic port were all placed under direct vision, and 8-10 left upper quadrant AirSeal port was also placed. The patient was then placed in 23 degrees T-nolvia and robot docked from the patient's left side attached the camera arm and targeting was complete. All other arms were attached, instruments inserted, and tips advanced into the mid pelvis under direct vision, and once the ports were burped, I went over to the console. After thorough survey of the pelvic cavity, the appendix appeared to be unremarkable, although there was some scar noted in the right lower quadrant. Bowel was retracted superiorly. Both ureters were traced from pelvic brim to the ureteric tunnel, and they were found to have a normal courses without any anatomical distortion. Endometriotic implants as discussed that was suspected on the left distal uterosacral, left lateral broad ligament and lateral wall, Holland master sinus as discussed as well. Plan was to excise endometriosis with PATIENT NAME: BRICE DELATORRE peritoneal and included with the specimen. The distal right tube was adhered to the anterior abdominal wall peritoneum. This was cauterized and cut with monopolar scissors. Then, distal tubal fimbriated end was taken down with the monopolar scissors. Window was made at the broad ligament and cautery bipolar. The distal segment of the ground and the uteroovarian rate ligament was done, then I went over to the opposite side and opened the peritoneum up between the round ligament parallel to the IP ligament. The medial leaf of the broad ligament was opened up between the ureter and the IP making a good window of peritoneum. A window was made from the round ligament as well on the left side, opening up the left anterior broad ligament and posterior broad ligament, then a vessel sealer was brought and left round IP ligaments, the right tube, the right uteroovarian ligament and right round ligament were all taken down. The distal right tube was detached and handed over for retrieval by my content assistant. Anterior and posterior peritoneal flaps were taken down to the level of the uterine vessels. Vessels were identified. Ureter was identified at the tunnel and posterior peritoneum dissected laterally to drop the ureter away on each side, and once this was done, the uterine artery and vein were identified. Posterior peritoneum was scored with a monopolar single anju of the scissors. Anterior bladder flap was to be dissected here as the peritoneum was incised. I could see how there was bladder adhered to the lower segment of the uterus and upper portion of the cervix and vaginal wall. After taking down the bladder sharply with monopolar scissors and occasional cautery as needed, they realized that there were 2 lateral mucinous cysts on the cervix and the upper one-third of the cervix. These were protruding anteriorly and the bladder was significantly adhered, so plan was to fill the bladder, and then dissect and get into the vesicovaginal space. The bladder was retrograded and filled with 300 mL after adequate visualization of the bladder and this was picked up with the cardia forceps in the midline. Then, laterally, the right paravesical space was entered. The vaginal anterior wall was identified and the bladder picked up and sharp dissection was performed to take the adhesion out from the cystic area. In the midline, anterior vaginal wall was dissected sharply to expose fascia of the anterior vaginal wall and the bladder dissected inferiorly. Similarly, the left bladder pillar area was taken down with the help of sharp dissection and occasional cautery as needed with monopolar and bipolar. Then, the paravaginal space was entered and then the whole area was opened up properly for good exposure of the entire anterior vaginal wall. Then, at 11 and 1 o'clock, the vessels were present from the bladder pillar coming down, these were cauterized and cut. Then, the uterine artery was exposed very well on the left side as well as the entire cardinal ligament, so these were taken down with the help of bipolar fenestrated graspers and then monopolar scissors was used to cut first the uterine artery and vein, then the cardinal ligaments were taken down in portions, and uterosacral ligaments were quickly cauterized and cut. Similar dissection performed on the opposite side to take down the attachments and exposed the cervix. The vessels were taken down before all this was done. There was adequate hemostasis. Anterior vaginal wall was incised with a monopolar single anju scissors. After this, adequate dissection at least 2 cm inferior to the cuff to be closed and the cuff was opened up with the help of monopolar scissors and cautery, opening PATIENT NAME: BRICE DELATORRE up towards the right side from the midline. Then, care was taken to remove the entire cervical cyst carefully and stay on the vaginal wall as close to the fornix as possible without compromising the vaginal length and coming down towards the right uterosacral ligament, this colpotomy was extended and then I came down from the opposite side on the left side, taking down the left cardinal ligaments after the vessels were taken and down to the uterosacrals and then the posterior wall was cut and the specimen detached and retrieved through the vagina. Vaginal cuff was occluded with a sponge stuffed in a glove that was tucked. This was then placed in the mid vaginal canal for pneumo occlusion. Thorough irrigation and suction were performed. Closure with a simple #1 Vicryl suture at both ends, then three [id number] in the middle using full thickness closure and then a 2-0 V-Loc was used to imbricate this incision properly. Once this was done, the uterosacral ligaments were also included in this. Then, the closure was complete. Hemostatic powder was then placed. The pelvic cavity was irrigated and suctioned before that. Trocars removed under direct vision after the robot was undocked and ports removed under direct vision as well. Once the gas was desufflated, the umbilical and the AirSeal port were also removed and fascia at the umbilicus closed with the tagged 0 Vicryl sutures tied to each other and interrupted 4-0 Monocryl sutures for all other skin incisions. Vaginal occluder and Tavera were removed. Instrument, needle, and sponge counts were correct at the end of the case. The patient's vaginal cuff was well supported and closed, and point C was at -7. The patient was recovered from anesthesia after instrument, needle, and sponge counts x3 were correct. She will follow up in 1-week and 4 weeks in the office as smoker instructions have been given for smoking cessation, and risks of smoking and delayed healing and infection were reviewed with the patient as well. debriefed. RIGHT OVARIOPEXY: After the vaginal cuff closure was done, the right ovary was then sutured to the base of the right round ligament and to the peritoneum superior to it in a continuous running manner with 3-0 Monocryl. This to prevent any dyspareunia or pelvic pain by avoiding the risk of torsion. Dictated By: Saulo Montenegro MD Date Dictated: 06/23/2024 14:43:15 Date Transcribed: 06/23/2024 20:29:57 HORACE/TOBY Receipt ID: [id number] Authenticated by Saulo Montenegro MD On 2024 06:40:07 PM at 0640 PATIENT NAME: BRICE DELATORRE [facility] 2024-06-23 14:32:00 [facility] ([facility]) Post Anesthesia Evaluation REPORT#:[id number] REPORT STATUS: Signed REPORT INITIALIZATION DATE:06/23/24 TIME:143 PATIENT: BRICE DELATORRE UNIT #: [id number] ROOM/BED: : 74 AGE: 48 SEX: F ATTEND: Saulo Montenegro MD ADM AUTHOR: Vamsi Ropre MD REPT SERVICE DT/TIME: 06/23/24 1432 * ALL edits or amendments must be made on the electronic/computer document * Post Anesthesia Evaluation Anes. changes from pre-op eval Level of consciousness: no change, patient awake, able to answer questions, participate in this eval. Vital signs: Last Documented: Result Date Time Pulse Ox 99 06/23 1430 B/P 147/106 06/23 1430 O2 Delivery Simple mask 06/23 1430 O2 Flow Rate 6 06/23 1430 Pulse 89 06/23 1430 Resp 18 06/23 1430 Temp 36.4 06/23 0940 Cardiovascular: CV system stable, vital signs stable Respiratory/Airway: respiratory system stable, maintains without support Pain: adequately controlled Hydration: adequate Temp status: normothermic Presence of N/V: no Anesthesia complications: no at 1433 RPT #: [id number] END OF REPORT [facility] 2024-05-30 10:32:43 Called patient to let them know they will need to come into clinic and sign a medical release form to have medical records sent to Paresh Curiel NP. Patient stated he will be in today. NE Lopez [facility] 2024-05-30 09:25:04 Please facilitate request for xrays from [facility]. Thank You NE Cooper RN [facility] 2024-05-26 14:50:30 Brice Delatorre is a 48 year old female Alba with [facility] called stating that pt states that she got x-ray done at [facility] shortly after visit (pt did not provide specific date). She states that clinic is needing to request records from [facility]. Please advise. NE Odom [facility] 2024-05-26 14:26:20 Spoke with Alba with [facility] and notified her that the patient has not had the chest Xray done and can not be cleared until completed. Alba stated that she would notifiy the patient. NE Cooper RN [facility] 2024-05-23 16:20:50 Attempt to contact [facility] to inform them pt has not been cleared. Chest x ray must be completed. NE Braswell MA [facility] 2024-05-23 15:54:30 Chest x ray is part of the work up Pt smokes so its important its done [facility] 2024-05-23 15:40:38 Please advise. Chest x ray still not completed. [employer] Florence Braswell MA [facility] 2024-05-22 10:55:48 Brice Delatorre is a 48 year old female Alba with [facility] called to follow up on surgery clearance.Pt surgery is 06/23/2024. Please advise. 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 CALIBRATION ----- Weakness in arms and legs, shaky, shortness of breath, started upon taking antibiotic (sulfamethoxazole-trimethop rim) (04/28) NE Hall RN [facility] 2024-04-30 09:55:00 Adult Triage Assessment Last Clinic Visit: 04/28/2024 menorrhagia with regular cycle; preoperative clearance; smoker; hemorrhagic cystitis Primary Symptom: weakness Onset / Duration: since starting Bactrim on 04/28/2026 Location / Description: 30 minutes after taking antibiotic I get SOB and shaky weakness in arms and legs - usually last about 1 hour Pain / Severity: 4-5/10 kidney area Associated Symptoms: notes started with SOB for brief period yesterday after taking medication, then started having weakness of arms and legs this morning after taking morning dose Fever / Method: denies Hydration: 3-4 bottle water daily; last void 10 minutes ago Treatment so far: bactrim DS 800-160 mg per tablet Effect on ADL's: concerned that this is a reaction LMP: currently on period Pre-existing condition / Immunocompromised: right ovarian cyst; menorrhagia with regular cycle; preoperative clearance; smoker; hemorrhagic cystitis Advice given Neurologic Deficit Adult Protocol. Patient advised to follow up with a provider within 4 hours. RN recommended speaking with provider before taking another dose of medication. RN will forward to provider and clinic that prescribed the medication. Patient notes she has an appointment this morning at 1115 with her OBGYN and will also talk to them about this matter. Denies further needs or concerns at this time. Reason for Disposition [1] Numbness (i.e., loss of sensation) of the face, arm / hand, or leg / foot on one side of the body AND [2] gradual onset (e.g., days to weeks) AND [3] present now Protocols used: Neurologic [id number] [facility] 2024-04-30 09:55:00 Have her stop bactrium will change antibiotics. The culture report is not yet in . Er precautions [facility] 2024-04-30 09:55:00 Addended by: PARESH CURIEL on: 04/30/2024 05:03 PM Modules accepted: Orders [facility] 2024-04-30 09:55:00 Notified patient that Paresh Curiel sent in new prescription and to discontinue the bactrim. ER precautions given for worsening of symptoms. Patient verbalizes understanding and states symptoms penny already getting a lot better. [facility] Lurdes Dwyer RN [facility] 2024-04-28 16:45:00 No lab drawn patient stated she was not fasting and will be back tomorrow.Camille Michaud 04/28/2024 4:04 PM NE Michaud [facility] 2024-04-17 09:20:08 Received records from [facility]. Placed in Providers box. [employer] Arianna Jennings [facility] 2024-04-15 10:00:56 Left voicemail for Alba. This patient is not a established in our office. [employer] Sana Diop MA [facility] 2024-04-15 09:50:42 Alba russell/ Dr. Monte Office states they faxed a medical clearance to the office on 2023. The pt is needing medical clearance for a hysterectomy. Alba Info: CB#---[phone]/ OPT: 2 FAX#---[phone] Please Advise. NE Ross [facility] 2024-04-02 18:25:30 Patient dc home. Follow up with pcp. [facility] 2024-04-02 13:16:14 Patient requesting to be swabbed for flu and covid. She has been sick x 2 days with nausea, headache, and diarrhea. dalberto Moss RN [facility] 2024-03-25 23:05:22 Pt given printed and verbal discharge instructions regarding LLQ abdominal pain, encouraged hydration, Prescription sent to pharmacy Discussed tramadol side affects and to avoid driving/operating machinery/or engaging in activities requiring alertness while taking. Pt verbalized understanding of instructions, pt awake alert oriented, resp reg unlabored, skin w/d, color appropriate for race, moves all ext well,pt encouraged to follow up with pcp Advised to seek medical attention for new/prolonged/worsening of symptoms No adverse reaction to meds given in ER noted upon discharge PIV d'cd, dressing to site, catheter in tact. Awake, alert oriented, resp reg unlabored, skin w/d, pt leaving ambulatory without assist, in no apparent distress, Scot Vargas RN [facility] 2024-03-25 19:19:09 Pt presents to ED with c/o steady lower left abdominal pain. Pt rates it as 02/11. Pt also c/o 3 weeks of vaginal bleeding. Pt had hysteroscopy last and has continued to have vaginal bleeding. Pt did not notify ob/gym of bleeding. Pt states she is bleeding like a normal menstrual cycle but blood is dark. 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 Discussed tramadol side affects and to avoid driving/operating machinery/or engaging in activities requiring alertness while taking. Pt verbalized understanding of instructions, pt awake alert oriented, resp reg unlabored, skin w/d, color appropriate for race, moves all ext well,pt encouraged to follow up with pcp Advised to seek medical attention for new/prolonged/worsening of symptoms No adverse reaction to meds given in ER noted upon discharge PIV d'cd, dressing to site, catheter in tact. Awake, alert oriented, resp reg unlabored, skin w/d, pt leaving amb with steady gait, in no apparent distress, [facility] 2024-01-18 17:18:39 Pt came in walking on steady gait states" I have a hx of kidney stones a couple mos ago, I cannot pin point where the pain is coming from but today it is worst on my left side belly radiates to my left leg, no energy and nauseous almost everyday" Not taking any meds for her kidney stones MT Annetta Silva RN [facility] 2023-12-18 12:45:00 Pt discharged with diagnosis of flank pain, renal stones, osteoarthritis of lumbar spine. Printed and verbal instructions reviewed with and given to patient. Prescriptions given x 2. Patient verbalized understanding of teaching, medication administration, and recommended follow-up. Denies questions or concerns at this time. Pt ambulatory at discharge. Appears in no apparent distress. No ataxia noted. Accompanied by self. MT Christine Ventura RN [facility] 2023-12-18 10:30:23 Patient arrived ambulatory c/o of left sided flank pain that started yesterday morning. Went to PCP and got medicine which hasn't helped. Diann Lovell RN [facility] 2023-09-28 22:44:52 Pt dc'd home ambulatory with crutches. Pt v/u of dc instructions, RICE, and follow up with pcp as needed. 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 Reports pain 10/10 on both sides of ankle and down the left side of foot to toes. Yara Atkinson RN [facility] 2023-08-04 01:35:00 Dc instructions and prescription reviewed with pt by Dr Montilla. Verbalized understanding. No reaction to meds noted or report. Gauze dressing to iv site. Aox4, rr even and unlabored on ra, skin warm and dry. Ambulatory with steady gait with all belongings accompanied by spouse to lobby. NE Sandoval RN [facility] 2023-08-04 01:19:50 Dr Montilla at bedside [facility] 2023-08-04 01:09:16 Pt resting on stretcher sleeping with spouse at bedside. RR even and unlabored on ra, skin warm and dry. No distress observed. [facility] 2023-08-04 00:11:54 Pt reports not receiving ordered meds despite being pulled by previous nurse. Overrided and given by this RN per Dr Montilla [facility] 2023-08-03 22:55:39 Pt resting on stretcher. Aox4, rr even and unlabored on ra, skin warm and dry. Reporting abdominal pain and discomfort. No distress observed. IV attempts x3 in triage. Pt reports she is always a difficult stick d/t prior history. US guided IV requested [facility] 2023-08-03 20:35:54 Patient to Ultra sound at this time. Patient is a very hard stick. Not able to start PIV. Will have to be US guided when patient returns. [employer]OR CAL[employer]RATION Kalie Luna RN [facility] 2023-08-03 20:35:51 RN attempted to obtain PIV access x 3 without success. Patient to US, NAD noted. Patient remains without IV access. Additional PIV access initiation attempts when patient returns from imaging. RVISOR CALIBRATION Dorinda Trinh RN [facility] 2023-08-03 20:16:28 Dr. Montilla at bedside. RVISOR CAL[employer]RATION [facility] 2023-08-03 19:37:23 Brice Delatorre is a 48 year old female presents to ed ambulatory with complaint of abd pain over last couple of weeks and pain has continued. Patient reports vomits everyday, has had diarrhea for 2 months. Patient reports she has been told that she has cyst on her ovaries. Patient reports pain and nausea is constant 24/7. Patient denies taking medication for pain. Patient reports vomiting once today, yesterday 3 times. Patient reports at least once a day. Patient reports was given ibuprofen for pain, didn't help then gave her something else and it didn't help either. [employer]OR CAL[employer]RATION No Felix RN [facility] 2023-06-28 01:50:05 Pt given printed and verbal discharge instructions regarding pelvic pain and right ovarian cyst Prescriptions provided Pt verbalized understanding of instructions, pt awake alert oriented, resp reg unlabored, skin w/d, color appropriate for race, moves all ext well,pt encouraged to follow up with pcp Advised to seek medical attention for new/prolonged/worsening of symptoms No adverse reaction to meds given in ER noted upon discharge PIV d'cd, dressing to site, catheter in tact. Awake, alert oriented, resp reg unlabored, skin w/d, pt leaving amb with steady gait, in no apparent distress NE Garcia RN [facility] 2023-06-28 01:22:24 Waiting for IV fluids to infuse. 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 She states that she was shaking. Pt was diagnosed with ovarian cyst x 1 wk ago at this facility. Pt denies vaginal bleeding. PMHx: see chart Awake, alert, oriented, resp reg unlabored, skin warm, color appropriate for race, moves all ext without difficulty, amb with steady gait NE Rangel RN [facility] 2023-06-20 19:22:46 Pt given printed and verbal discharge instructions regarding right ovarian cyst and vaginal bleeding Prescriptions provided Pt verbalized understanding of instructions, pt awake alert oriented, resp reg unlabored, skin w/d, color appropriate for race, moves all ext well, pt encouraged to follow up with pcp Advised to seek medical attention for new/prolonged/worsening of symptoms No adverse reaction to meds given in ER noted upon discharge PIV d'cd, dressing to site, catheter in tact. Awake, alert oriented, resp reg unlabored, skin w/d, pt leaving amb with steady gait, in no apparent distress NE Garcia RN [facility] 2023-06-20 16:49:02 Brice Delatorre is a 47 year old female c/o abnormal vaginal bleeding off and for 5 months, states bleeds for a few weeks and then stops for about 1 week, then starts again, alert in no distress, skin w/d pink, oral mucosa pink moist NE Cordero RN [facility]
--- NOTE | 2025-01-09 09:07 | EDPHYS ---
Physician Documentation [facility] Name: Ariana Delatorre Age: 49 yrs Sex: Female : 1975 Arrival Date: 01/09/2025 Time: 08:27 Bed IW2 Private MD: ED Physician Win Arellano HPI: 01/09 08:48 This 49 yrs old Female presents to ER via Ambulatory with complaints of Sore dr5 Throat, Ear Pain. 08:48 The patient presents with sore throat. The patient describes throat pain as burning. dr5 Onset: The symptoms/episode began/occurred 3 day(s) ago. Patient is a 49-year-old female with no past medical history coming in with 3 days of fever at home and sore throat. Patient reports that her left ear is also painful. Patient also reports that she has chronic dermatitis on her right arm that is healing and dry. Patient denies difficulty swallowing, difficulty handing secretions, or difficulty speaking.. Historical: - Allergies: 08:35 No Known Allergies; bp - PSHx: 08:35 Cholecystectomy; cleft lip repair; ; Total abdominal hysterectomy; bp - Immunization history:: Adult Immunizations up to date. - Infectious Disease History:: Denies. - Social history:: Smoking status: unknown. ROS: 08:48 Constitutional: as per hpi dr5 Exam: 08:48 Constitutional: This is a well developed, well nourished patient who is awake, alert, dr5 and in no acute distress. Head/Face: Normocephalic, atraumatic. Eyes: Pupils equal round and reactive to light, extra-ocular motions intact. Lids and lashes normal. Conjunctiva and sclera are non-icteric and not injected. Cornea within normal limits. Periorbital areas with no swelling, redness, or edema. Neck: Trachea midline, no thyromegaly or masses palpated, and no cervical lymphadenopathy. Supple, full range of motion without nuchal rigidity, or vertebral point tenderness. No Meningismus. Chest/axilla: Normal chest wall appearance and motion. Nontender with no deformity. No lesions are appreciated. Cardiovascular: Regular rate and rhythm with a normal S1 and S2. Normal PMI, no JVD. No pulse deficits. Respiratory: Lungs have equal breath sounds bilaterally, clear to auscultation. No rales, rhonchi or wheezes noted. No increased work of breathing, no retractions or nasal flaring. Back: No spinal tenderness. No costovertebral tenderness. Full range of motion. Skin: Warm, dry with normal turgor. Normal color with no rashes, dry lesions that are crusted over noted on right forearm, and no evidence of cellulitis. MS/ Extremity: Pulses equal, no cyanosis. Neurovascular intact. Full, normal range of motion. Neuro: Awake and alert, GCS 15, oriented to person, place, time, and situation. Cranial nerves II-XII grossly intact. Motor strength 5/5 in all extremities. Sensory grossly intact. Cerebellar exam normal. Normal gait. 08:48 ENT: External ear(s): are unremarkable, no acute changes, Ear canal(s): are normal, no acute changes, TM's: are normal, no acute changes, Nose: is normal, Mouth: is normal, Posterior pharynx: Airway: normal, no evidence of obstruction, Tonsils: bilaterally enlarged, with exudate, Uvula: normal, swelling, is not appreciated, Vital Signs: 08:33 BP 142 / 91; Pulse 75; Resp 18; Temp 98; Pulse Ox 99% ; Weight 57.15 kg; Height 5 ft. 2 bp in. ; 08:33 Body Mass Index 23.05 (57.15 kg, 157.48 cm) bp MDM: 08:32 Medical Screening Exam initiated dr5 09:15 Differential diagnosis: Allergic rhinitis, epiglottitis, tonsillitis, upper respiratory dr5 infection, Group A strep. Data reviewed: vital signs, nurses notes, lab test result(s), Strep negative. Consideration of Admission/Observation Escalation of care including admission/observation considered. Escalation considered patient found to have epiglottitis and not handling secretions well. I considered the following discharge prescriptions or medication management in the emergency department I discussed and recommended Over The Counter medications. Care significantly affected by the following Social Determinants of Health: Poor access to healthcare and/or lack of insurance, Poor access to transportation, Problems related to employment. Counseling: I had a detailed discussion with the patient and/or guardian regarding the historical points, exam findings, and any diagnostic results supporting the discharge/admit diagnosis, the presence of at least one elevated blood pressure reading (>120/80) during this emergency department visit, lab results, to return to the emergency department if symptoms worsen or persist or if there are any questions or concerns that arise at home. Medication response: Toradol partially relieved the patient's pain. Special discussion: I have referred the patient to see his PCP for further evaluation of high blood pressure. I discussed with the patient/guardian in detail that at this point there is no indication for admission to the hospital. It is understood, however, that if the symptoms persist or worsen the patient needs to return immediately for re-evaluation. Based on the history and exam findings, there is no indication for further emergent testing or inpatient evaluation. I discussed with the patient/guardian the need to see the ENT specialist for further evaluation of the symptoms. ED course: Toradol injection given in ER for pain. Strep is negative. Will treat for tonsillitis with amoxicillin and steroid Dosepak. Patient agreeable plan. Recommend thln-qru-dtttasc medication such as Tylenol to help. All questions answered. Strict ER precautions given. Increase hydration.. 01/09 08:32 Order name: Group A Streptococcus Rapid; Complete Time: 09:07 dr5 01/09 08:59 Order name: Throat Culture EDMS Administered Medications: 09:17 Drug: Ketorolac IM 30 mg IM once Route: IM; Site: left deltoid; bp 09:17 Follow up: Response: No adverse reaction bp Disposition: 09:35 Co-signature as Attending Physician, Win Arellano MD I agree with the assessment and jr plan of care. Disposition Summary: 01/09/25 09:07 Discharge Ordered Notes: Location: Home dr5 Condition: Stable dr5 Diagnosis - Acute tonsillitis, unspecified dr5 Followup: dr5 - With: Emergency Department - When: As needed - Reason: Worsening of condition Followup: dr5 - With: Private Physician - When: 1 - 2 days - Reason: Recheck today's complaints, Continuance of care, Re-evaluation by your physician Discharge Instructions: - Discharge Summary Sheet dr5 - Tonsillitis dr5 Forms: - Medication Reconciliation Form dr5 - Antibiotic Education dr5 - Patient Portal Instructions dr5 - Leadership Thank You Letter dr5 Prescriptions: - Amoxicillin 500 mg Oral capsule - take 1 capsule ORAL route every 12 hours for 7 days; 14 tablet; Refills: 0, dr5 Product Selection Permitted - Ibuprofen 800 mg Oral Tablet - take 1 tablet ORAL route every 12 hours As needed take with food; 20 tablet; dr5 Refills: 0, Product Selection Permitted - Medrol (Matias) 4 mg Oral Tablets, Dose Pack - take 1 tablet ORAL route as directed - follow package instructions; 1 packet; dr5 Refills: 0, Product Selection Permitted Signatures: Dispatcher [employer] Marcus Brooks, CORNELIA RN Win Cordon MD MD [id number] Parker Collier, JUAN-C HOG HANDLER-Cdr5
--- NOTE | 2025-01-09 09:07 | ER ---
Nurse's Notes [facility] Name: Ariana Delatorre Age: 49 yrs Sex: Female : 1975 Arrival Date: 01/09/2025 Time: 08:27 Bed IW2 Private MD: Diagnosis: Acute tonsillitis, unspecified Presentation: 01/09 08:33 Chief complaint: Patient states: 3 DAYS FEVER, SORE THROAT. Coronavirus screen: At this bp time, the client does not indicate any symptoms associated with coronavirus-19. Ebola Screen: No symptoms or risks identified at this time. Initial Sepsis Screen: Does the patient meet any 2 criteria? No. Patient's initial sepsis screen is negative. Does the patient have a suspected source of infection? No. Patient's initial sepsis screen is negative. Risk Assessment: Do you want to hurt yourself or someone else? Patient reports no desire to harm self or others. Onset of symptoms is unknown. 08:33 Method Of Arrival: Ambulatory bp 08:33 Acuity: DEA 4 bp Triage Assessment: 08:35 General: Appears in no apparent distress. Behavior is calm, cooperative, appropriate bp for age. Pain: Complains of pain in left ear and neck. EENT: Throat is reddened. Neuro: No deficits noted. Cardiovascular: No deficits noted. Respiratory: No deficits noted. GI: No signs and/or symptoms were reported involving the gastrointestinal system. : No signs and/or symptoms were reported regarding the genitourinary system. Derm: No deficits noted. Musculoskeletal: No deficits noted. Historical: - Allergies: 08:35 No Known Allergies; bp - PSHx: 08:35 Cholecystectomy; cleft lip repair; ; Total abdominal hysterectomy; bp - Immunization history:: Adult Immunizations up to date. - Infectious Disease History:: Denies. - Social history:: Smoking status: unknown. Screenin:22 [facility] ED Fall Risk Assessment (Adult) History of falling in the last 3 months, bp including since admission No falls in past 3 months (0 pts) Confusion or Disorientation No (0 pts) Intoxicated or Sedated No (0 pts) Impaired Gait No (0 pts) Mobility Assist Device Used No (0 pt) Altered Elimination No (0 pt) Score/Fall Risk Level 0 - 2 = Low Risk Oriented to surroundings. Abuse screen: Denies threats or abuse. Denies injuries from another. Nutritional screening: No deficits noted. Tuberculosis screening: No symptoms or risk factors identified. Assessment: 09:22 Respiratory: Airway is patent Respiratory effort is even, unlabored, Breath sounds are bp clear bilaterally. Vital Signs: 08:33 BP 142 / 91; Pulse 75; Resp 18; Temp 98; Pulse Ox 99% ; Weight 57.15 kg; Height 5 ft. 2 bp in. ; 08:33 Body Mass Index 23.05 (57.15 kg, 157.48 cm) bp ED Course: 08:29 Patient arrived in ED. im 08:31 Parker Col[facility]C [facility] bp 08:32 Marcus Reinoso, RN is Primary Nurse. bp 08:35 Triage completed. bp 08:35 Arm band placed on. bp 08:50 Win Arellano MD is Attending Physician. dr5 09:22 Patient has correct armband on for positive identification. bp 09:22 No provider procedures requiring assistance completed. Strep swab sent to lab. Patient bp did not have IV access during this emergency room visit. Administered Medications: 09:17 Drug: Ketorolac IM 30 mg IM once Route: IM; Site: left deltoid; bp 09:17 Follow up: Response: No adverse reaction bp Medication: 09:22 VIS not applicable for this client. bp Outcome: 09:07 Discharge ordered by . dr5 09:22 Discharged to home ambulatory, bp 09:22 Condition: stable 09:22 Discharge instructions given to patient, Instructed on discharge instructions, follow up and referral plans. medication usage, Demonstrated understanding of instructions, follow-up care, medications, Prescriptions given X 3, 09:23 Patient left the ED. bp Signatures: Marcus Reinoso, RN RN bp Naya Bejarano im Parker Collier, JUAN-C [employer] PLANT OPERATOR-Cdr5
[2025-01-09] MEDS ORDERED: KETOROLAC 30 MG/ML INJ ONE (09:14)
[2025-01-09 09:28] VITALS: BP 142/91; TEMP 98; O2SAT 99
== END 2025-01-09 09:23 | disposition home or self-care (01) ==
LOC: ER 08:27
DX: J03.90 Acute tonsillitis, unspecified (principal); H92.02 Otalgia, left ear
CPT/HCPCS: 36415; 87070; 96372; 99284

== ENCOUNTER 2025-01-10 13:39 | Emergency (ER) | payer OTHER ==
--- OUTSIDE RECORDS SUMMARY | 2025-01-10 13:50 | XMS REPORT | Continuity of Care Document ---
Author Name Unknown Address [address] [facility] [address] [place] [address] [facility] Address [address] [facility] [place] [address] Care Team Providers [employer] Driver Name Role Phone AKIL MENDEZ Primary Care Physician Unavailab AKIL Marquez Attending Clinician Unavailable MONAE HOYOS Attending Clinician Unav ailable JAMMIE GAO Attending Clinician Unavailable SERJIO ANDINO Attending Clinician Unavailable SERJIO ANDINO Attending Clinician Unavailable MD JASON Attending Clinician Unavailab KAYLAH Jason Attending Clinician Unavailable BEBE SOTELO Attending Clinician Unavailable GUSTABO APODACA Attending Clinician Unavailable Doctor Unassigned, [place] Attending Clinician U roeailRADHA Ayala Attending Clinician Unavailab YULY Ramires Attending Clinician Unav ailYULY uL Attending Clinician Unav ailTYREE Veloz Attending Clinician Unavailabl KVNG Locke Attending Clinician Unav ailable JAQUI NORRIS Attending Clinician Unavailable Jaqui Norris NP Attending Clinician Suma Rosario Attending Clinician Unavailab Saulo Reyes Attending Clinician Unavaila ble LAB90 Attending Clinician Unavailable Levon Hurley Attending Clinician Unavailable Yuly Saucedo MD Attending Clinician + Paresh Lyman Attending Clinician [phone] DANDRE JOHANSEN Attending Clinician Unavailable RADIOLOGY Attending Clinician Unavailable SAULO MONTENEGRO Attending Clinician UnavailPARESH Gutierrez Attending Clinician Unavailable Sherri Hall RN Attending Clinician Unavailable Lab, Ang - Db Attending Clinician Unavailable ANA CRISTINA RAYMOND Attending Clinician Unavailable Ana Cristina Hoang Attending Clinician [phone] [phone], Patient Does Not Have A Attending Clinician JONA GRANADOS Attending Clinician Unavailable JONA GRANADOS Attending Clinician Unavailable Jona Miller Attending Clinician [phone] David Swanson Attending Clinician CAREN JOHNSTON Attending Clinician Unavailable CAREN JOHNSTON Attending Clinician Unavailable Caren Mulligan Attending Clinician [phone] ALIN WYATT Attending Clinician Unavailable Beba Crespo RN Attending Clinician [phone] Doctor Unassigned, [place] Attending Clinician U navailable RICH MONTILLA Attending Clinician Unavailable RICH MONTILLA Attending Clinician Unavailable LEE JETT Attending Clinician Unavailable Yesenia Ogden Attending Clinician [phone] YESENIA KENDRICK Attending Clinician Unavailable _BCSS_Mukund_Baldomero1 Attending Clinician Unavaila wendie Joy Attending Clinician Unavailable DR JOSE L [...] JETT Admitting Clinician Unavailable GC_[email or web address] Admitting Clinician Unavailgenevieve Joy Admitting Clinician Unavailable DR JOSE L REYNOLDS Admitting Clinician Conchis pruett Payers Payer Name Policy Type Policy Number Effective Date Expirati on Date Source GOLD 3 ADVANCED 9 [id number] 2024 00:00:00 [employer] W/ ISABEL SEWELL OON [id number] 2024 00:00:00 [facility] SEBLEYBSARY WILLIAM COPAY FOCUS 9 [id number] 2023 00:00:00 [place]IA [place] FROM [facility] [id number] 2023 00:00:00 [facility] [id number] 1418-07-19 00:00:00 [facility] [id number] Problems Condition Name Condition Details Condition Category Status Onset Date Resolution Date Last Treatment Date Treating Clinician Comments Source History of tobacco use History of tobacco use Disease Active 10-13 00:00: 00 Isabel Seybold - Externa l Pain in both feet Pain in both feet Disease Active 12 00:00: 00 Isabel Seybold - Externa l Thrombocyt osis Thrombocyt osis Problem Active - 00:00: 00 [facility] Menopausal symptom Menopausal Symptom Problem Active 5 00:00: 00 [facility] Atrophic vaginitis Atrophic Vaginitis Problem Active - 00:00: 00 [facility] Other emphysema (multi [...] Medical Nicotine dependence Nicotine Dependence Problem Active 2025-0 1-15 00:00: 00 [facility] Snoring Snoring Disease Active 1-13 00:00: 00 Isabel Sewell - Marya l Well adult exam Well adult exam Disease Active 1-13 00:00: 00 Isabel Tomlinsonold - Externa l LLQ pain LLQ pain Disease Active 2023-06 2- 00:00: 00 [facility] Mastodynia of bilateral breasts Mastodynia of Bilateral Breasts Problem Active 2023-06 1- 00:00: 00 [facility] Menorrhagi a with regular cycle Menorrhagi a with regular cycle Disease Active 2023-06 1 00:00: 00 [facility] Preoperati ve clearance Preoperati ve clearance Disease Active 2023-06 1 00:00: 00 [facility] Smoker Smoker Disease Active 2023-06 00:00: 00 [facility] Hemorrhagi c cystitis Hemorrhagi c cystitis Disease Active 2023-06 00:00: 00 [facility] Radiology result abnormal Radiology Result Abnormal Problem Active 2023-06 0-31 00:00: [facility] Mass of left breast Mass of Left Breast Problem Active 2023-06 0-31 00:00: 00 [facility] Cervical intraepith elial neoplasia grade 2 Cervical Intraepith elial Neoplasia Grade 2 Problem Active 2023-06 0-17 00:00: 00 [facility] Atypical glandular cells on cervical Papanicola ou smear Atypical Glandular Cells on Cervical Papanicola ou Smear Problem Active 8- 00:00: 00 [facility] Human papillomav irus deoxyribon ucleic acid detected, high risk on cervical specimen Human Papillomav irus Deoxyribon ucleic Acid Detected, High Risk on Cervical Specimen Problem Active 8- 00:00: 00 [facility] Cigarette smoker Cigarette Smoker Problem Active 8- 00:00: 00 [facility] Pelvic and perineal pain Pelvic and Perineal Pain Problem Active 8- 00:00: 00 [facility] Cyst of ovary Cyst of Ovary Problem Active 8- 00:00: 00 [facility] Abnormal uterine bleeding Abnormal Uterine Bleeding Problem Active 01-20 00:00: 00 [facility] Heartburn Heartburn Problem Active 8 00:00: 00 [facility] Abdominal bloating Abdominal Bloating Problem Active 01-20 00:00: 00 [facility] Left lower quadrant pain Left Lower Quadrant Pain Problem Active 01-20 00:00: 00 [facility] Right ovarian cyst Right ovarian cyst Disease Active 1 00:00: 00 [facility] Fibroids Fibroids Disease Active Kelse y Seybold [...] s DA Active U 06-19 00:00: 00 [facility] NO KNOWN ALLERGIE S Drug Class Active [facility] Social History Social Habit Start Date Stop Date Quantity Comments Source ASSERTION Possible [facility] Sexual orientation Grant Sewell - External History [...] 2024-06-16 00:00:00 2024-06-16 00:00:00 Isabel Sewell - External Education 2024-06-16 00:00:00 2024-06-16 00:00:00 14 Isabel Sewell - External Sex 2023-06-28 09:40:56 2023-06-28 09:40:56 Female (finding) Isabel Sewell - External Alcohol intake 2022-12-20 00:00:00 2022-12-20 00:00:00 Current drinker of alcohol (finding) [facility] Sex assigned at 1975 00:00:00 1975 00:00:00 Isabel Sewell - Cassidy Smoking Status Start Date Stop Date Source Ex-smoker 2024-10-13 00:00:00 2024-10-13 00:00:00 Isabel Sewell - External Occasional tobacco smoker 2024-10-03 00:00:00 Isabel Benjamin Smokes tobacco daily 2024-04-28 00:00:00 [facility] Medications Ordered Medication Name Filled Medication Name Start Date Stop Date Current Medication? Ordering Clinician Indication Dosage Frequency Signature (SIG) Comments Components Source dexamethaso ne sod phos PF injection 8 mg 01-04 16:45: 00 01-04 17:19 :00 No 8mg 8 mg, Intramuscu lar, ONCE, 1 dose, On 01/04/25 at 1145, 1 mL [facility] methylPREDN ISolone 4 mg tablets 01-04 00:00: 00 Yes [id number] Take by mouth SEE-INSTRU CTIONS. follow package directions [facility] cephALEXin 500 mg capsule 01-04 00:00: 00 Yes [id number] 500mg Take 1 capsule by mouth in the morning and 1 capsule at noon and 1 capsule in the evening. [facility] loratadine 10 mg tablet 01-04 00:00: 00 Yes [id number] 10mg Take 1 tablet by mouth in the morning. [facility] HYDROcodone -acetaminop hen 5-325 mg tablet 2025-0 8-03 00:00: 00 01-12 04:59 :00 Yes [id number] 1{tbl} Take 1-2 tablets by mouth every 6 hours as needed for Pain (scale 4-6) for up to 7 days. [facility] Nicotine 21 MG/24HR transdermal PATCH 24 HR [...] MG oral Capsule 12-22 00:00: 00 Yes [id number] 15mg QD Take 1 capsule (15 mg [...] MG oral Capsule 12-18 00:00: 00 Yes [id number] 400mg Q.[id number] 3D Take 1 capsule (400 mg total) by mouth 3 times daily. Isabel duron Celecoxib (CeleBREX) 100 MG oral Capsule 12-18 00:00: 00 Yes [id number] 9105 100mg Q.5D Take 1 capsule (100 mg total) by mouth 2 times daily as needed. Isabel duron Nicotine 21 MG/24HR transdermal PATCH [...] MG oral Tablet 11-24 00:00: 00 Yes [id number] 50mg QD TAKE 1 TABLET BY MOUTH ONCE NIGHTLY Isabel duron Ondansetron (ZOFRAN) 8 MG oral TABLET DISPERSIBLE 11-17 00:00: 00 12-22 00:00 :00 No Isabel duron maalox/diph enhydrAMINE :lidocaine2 %viscous 1:1:1: suspension (COMPOUNDED ) 10-24 05:00: 00 10-24 05:05 :00 No 15mL 15 mL, Oral, ONCE, 1 dose, On Sun10/24/24 at 0000, Routine [facility] cefTRIAXone (ROCEPHIN) 1,000 mg in sterile water for injection 10 mL IV Push 10-24 04:00: 00 10-24 04:12 :00 No 1000mg 1,000 mg, Intravenou s, ONCE, 1 dose, On Breanna 10/23/24 at 2300, 10 mL, Reason for Anti-Infec tive: Documented Infection, Documented Infection Site: Urine, Duration of therapy: Once (ED) [facility] ondansetron (ZOFRAN (PF)) injection 4 mg 10-24 04:00: 00 10-24 04:14 :00 No 4mg 4 mg, Slow IV Push, ONCE, 1 dose, On [facility] 10/23/24 at 2300, Administer over 2-5 Minutes, 2 mL [facility] morpHINE (4 mg/mL) injection 4 mg 10-24 04:00: 00 10-24 04:12 :00 No 4mg 4 mg, Slow IV Push, ONCE, 1 dose, On [facility] 10/23/24 at 2300, STAT [facility] iopamidol (ISOVUE 370-500 mL) injection 83 mL 10-24 02:20: 00 10-24 02:30 :00 No [id number] 83mL 83 mL, Intravenou s, ONCE, 1 dose, On [facility] 10/23/24 at 2130, Routine [facility] cefdinir 300 mg capsule 10-23 00:00: 00 11-03 04:59 :00 Yes [id number] 300mg Take 1 capsule by mouth in the morning and 1 capsule in the evening. Do all this for 10 days. [facility] Temazepam 15 MG oral Capsule 10-20 13:21: [...] 10-20 00:00: 00 12-18 00:00 :00 No [id number] 75mg Q.5D Take 1 tablet (75 mg total) by mouth 2 times daily. Isabel duron Gabapentin 100 MG oral Capsule 10-20 00:00: 00 12-10 00:00 :00 No [id number] 9103 TAKE 1 CAPSULE BY MOUTH 2 TIMES A DAY NEEDED FOR PAIN Isabel duron Capsaicin 0.1 % apply externally Cream 10-20 00:00: 00 12-10 00:00 :00 No [id number] 1{appli cation} Q.[id number] 3D Apply 1 Applicatio n topically 3 [...] MCG/ACT IN AERS 10-03 00:00: 00 Yes [id number] 2{puff} Q.25D Inhale 2 puffs into the [...] 09-29 00:00: 00 12-10 00:00 :00 No [id number] 15mg QD Take 1 tablet (15 mg total) by mouth daily Take with Meals, STOP IF UPSET STOMACH. Isabel duron methylPREDN ISolone (Medrol) 4 MG oral Tablet Therapy Pack 09-29 00:00: 00 10-06 04:59 :00 No [id number] 1{calista} Take 1 calista by mouth See Admin Instructio ns for 6 days Use as directed.. Isabel duron HYDROcodone -acetaminop hen (NORCO 5) tablet 1 tablet 09-06 15:00: 00 09-06 14:58 :00 No 1{tbl} 1 tablet, Oral, ONCE, 1 dose, On 09/06/24 at 1000, [facility] ibuprofen 800 mg tablet 09-06 00:00: 00 Yes [id number] 800mg Take 1 tablet by mouth every 6 (six) hours as needed for Pain (scale 4-6). [facility] Albuterol HFA 108 (90 Base) MCG/ACT IN AERS 09-01 11:19: 15 Yes 2{puff} Q.25D Inhale 2 puffs into the lungs every 6 hours as needed for wheezing or shortness of breath. Isabel duron Quetiapine Fumarate 50 MG oral Tablet 09-01 00:00: 00 Yes [id number] 50mg QD Take 1 tablet (50 mg total) by mouth nightly. Isabel duron Meloxicam (Mobic) 15 MG oral Tablet 08-18 00:00: 00 Yes [id number] 15mg QD Take 1 tablet (15 mg total) by mouth daily Take with Meals, STOP IF UPSET STOMACH. Isabel duron Trazodone HCl 100 MG oral Tablet 08-05 00:00: 00 09-01 00:00 :00 No [id number] 100mg QD Take 1 tablet (100 mg total) by mouth nightly as needed for sleep. Isabel duron Gabapentin 100 MG oral Capsule 07-21 00:00: 00 Yes [id number] 9103 100mg Q.5D Take 1 capsule (100 mg total) by mouth 2 times daily as needed (pain). Isabel duron Naproxen 500 MG oral Tablet 2-17 00:00: 00 09-01 00:00 :00 No 500mg Q.5D Take 1 tablet (500 mg total) by mouth 2 times daily as needed (pain). Isabel duron piperacilli n-tazobacta m (ZOSYN) 3.375 g in NaCl 0.9% (NS) 100 mL MINI-BAG 06-29 23:45: 00 06-30 00:38 :00 No 3.375g 3.375 g, IV Piggyback, ONCE, 1 dose, On Sun06/29/24 at 1745, Administer over 30 Minutes, 100 mL, Reason for Anti-Infec tive: Documented Infection, Documented Infection Site: Abdominal, Duration of Therapy: Once (ED) [facility] morpHINE (4 mg/mL) injection 4 mg 06-29 23:00: 00 06-29 23:10 :00 No 4mg 4 mg, Slow IV Push, ONCE, 1 dose, On Sun06/29/24 at 1700, STAT [facility] iopamidol (ISOVUE 370-500 mL) injection 85 mL 06-29 22:45: 00 06-29 22:45 :00 No [id number] 85mL 85 mL, Intravenou s, ONCE, 1 dose, On Sun06/29/24 at 1645, Routine [facility] ondansetron (ZOFRAN (PF)) injection 4 mg 06-29 20:30: 00 06-29 20:50 :00 No 4mg 4 mg, Slow IV Push, ONCE, 1 dose, On Sun06/29/24 at 1430, Administer over 2-5 Minutes, 2 mL [facility] morpHINE (4 mg/mL) injection 4 mg 06-29 20:30: 00 06-29 20:48 :00 No 4mg 4 mg, Slow IV Push, ONCE, 1 dose, On Sun06/29/24 at 1430, STAT [facility] Quetiapine Fumarate 25 MG oral Tablet -16 00:00: 00 09-01 00:00 :00 No 25mg Take 1 tablet (25 mg total) by mouth. Isabel duron Trazodone HCl 50 MG oral Tablet 06-16 00:00: 00 Yes [id number] 50mg QD Take 1 tablet (50 mg total) by mouth nightly as needed for sleep. Isabel duron Celecoxib (CeleBREX) 200 MG oral Capsule 06-16 00:00: 00 07-21 00:00 :00 No [id number] 200mg Q.5D Take 1 capsule (200 mg total) by mouth 2 times daily as needed for pain. Isabel duron cephALEXin 500 mg capsule 2023-06 00:00: 00 01-04 00:00 :00 No [id number] 500mg Take 1 capsule by mouth in the morning and 1 capsule in the evening. [facility] sulfamethox azole-trime thoprim (BACTRIM DS) 800-160 mg per tablet 2023-06 00:00: 00 04-30 00:00 :00 No [id number] 1{tbl} Take 1 tablet by mouth in the morning and 1 tablet in the evening. Do all this for 7 days. [facility] gabapentin 300 mg capsule 2023-06 00:00: 00 Yes 300mg Take 1 capsule by mouth in the morning and 1 capsule at noon and 1 capsule in the evening. [facility] ondansetron (ZOFRAN-ODT ) disintegrat ing tablet 4 mg 2023-06 23:30: 00 04-02 23:19 :00 No 4mg 4 mg, Oral, ONCE, 1 dose, On Sun04/02/24 at 1830, Routine [facility] ketorolac (TORADOL) injection 15 mg 2023-06 0 23:30: 00 04-02 23:19 :00 No 15mg 15 mg, Intramuscu lar, ONCE, 1 dose, On Sun04/02/24 at 1830, Routine [facility] ondansetron 4 mg disintegrat ing tablet 2023-06 00:00: 00 Yes [id number] 4mg Take 1 tablet by mouth every 8 (eight) hours as needed for Nausea and Vomiting (N/V). [facility] QUEtiapine 25 mg tablet 2023-06 00:00: 00 Yes [facility] HYDROcodone -acetaminop hen (NORCO 5) tablet 1 tablet 2023-06 03:30: 00 03-26 03:34 :00 No 1{tbl} 1 tablet, Oral, ONCE, 1 dose, On Sun03/25/24 at 2230, [facility] iopamidol (ISOVUE 370-500 mL) injection 83 mL 2023-06 02:15: 00 03-26 02:15 :00 No [id number] 83mL 83 mL, Intravenou s, ONCE, 1 dose, On Sun03/25/24 at 2115, Routine [facility] ketorolac (TORADOL) injection 15 mg 2023-06 01:30: 00 03-26 00:50 :00 No 15mg 15 mg, Slow IV Push, ONCE, 1 dose, On Sun03/25/24 at 2030, Routine [facility] traMADoL (ULTRAM) tablet 50 mg 2023-06 01:00: 00 03-26 00:42 :00 No 50mg 50 mg, Oral, ONCE NOW, 1 dose, On Sun03/25/24 at 2000, [facility] traMADoL 50 mg tablet 2023-06 00:00: 00 04-02 04:59 :00 No [id number] 50mg Take 1 tablet by mouth every 8 (eight) hours as needed for Pain (scale 7-10) for up to 7 days. Indication s: acute pain [facility] diazePAM 10 mg tablet 2023-06 016 00:00: 00 Yes Take by mouth. [facility] ketorolac (TORADOL) injection 30 mg 01-18 03:00: 00 01-18 03:09 :00 No 30mg 30 mg, Slow IV Push, ONCE, 1 dose, On Sun01/18/24 at 2200, [facility] iopamidol (ISOVUE 370-500 mL) injection 60 mL 01-18 02:45: 00 01-18 02:45 :00 No [id number] 60mL 60 mL, Intravenou s, ONCE, 1 dose, On Sun01/18/24 at 2145, Routine [facility] NaCl 0.9% (NS) IV infusion 1,000 mL 01-18 00:30: 00 01-18 03:16 :00 No 1000mL at 999 mL/hr, Intravenou s, ONCE, 1 dose, On Sun01/18/24 at 1930, [facility] ondansetron (ZOFRAN (PF)) injection 4 mg 01-17 23:30: 00 01-18 02:34 :00 No 4mg 4 mg, Slow IV Push, ONCE, 1 dose, On Sun01/18/24 at 1830, [facility] fentanyl PF (SUBLIMAZE (PF)) injection 50 mcg 01-17 23:20: 00 01-18 02:34 :00 No 50ug 50 mcg, Slow IV Push, ONCE, 1 dose, On Sun01/18/24 at 1830, [facility] sodium chloride (NS) injection 5 mL 01-17 22:28: 58 Yes 5mL 5 mL, Intravenou s, PRN, Starting on Sun01/18/24 at 1728, Until Discontinu ed, Routine, IV line flushing [facility] naproxen (NAPROSYN) 500 mg tablet 01-17 00:00: 00 Yes [id number] 500mg Take 1 tablet by mouth 2 (two) times daily with meals as needed for Alternate with [place] for pain scale 1-3. [facility] traMADoL 50 mg tablet 2024-0 8-16 00:00: 00 01-25 04:59 :00 No [id number] 50mg Take 1 tablet by mouth every 8 (eight) hours as needed for Pain (scale 7-10) for up to 7 days. Indication s: acute pain [facility] ketorolac (TORADOL) injection 15 mg 12-17 17:00: 00 12-17 16:21 :00 No 15mg 15 mg, Slow IV Push, ONCE, 1 dose, On Sun12/18/23 at 1200, [facility] naproxen 500 mg tablet 12-17 00:00: 00 12-28 04:59 :00 No [id number] 500mg Take 1 tablet by mouth in the morning and 1 tablet in the evening. Take with meals. Do all this for 10 days. [facility] HYDROcodone -acetaminop hen 5-325 mg tablet 12-17 00:00: 00 12-25 04:59 :00 No [id number] 1{tbl} Take 1-2 tablets by mouth every 6 (six) hours as needed for Pain (scale 4-6) for up to 7 days. Indication s: acute pain [facility] acetaminoph en (TYLENOL) tablet 650 mg 09-28 03:45: 00 09-28 03:39 :00 No 650mg 650 mg, Oral, ONCE, 1 dose, On Sun09/28/23 at 2245, [facility] ibuprofen (IBU) tablet 600 mg 09-28 01:30: 00 09-28 01:31 :00 No 600mg 600 mg, Oral, ONCE, 1 dose, On Sun09/28/23 at 2030, [facility] ondansetron (ZOFRAN (PF)) injection 4 mg 08-03 02:15: 00 08-03 06:15 :00 No 4mg 4 mg, Slow IV Push, ONCE, 1 dose, On Sun08/03/23 at 2015, [facility] famotidine (PEPCID (PF)) injection 20 mg 08-03 02:15: 00 08-03 06:14 :00 No 20mg 20 mg, Slow IV Push, ONCE, 1 dose, [facility]/03/23 at 2015[facility] 1,000 mg 08-03 02:15: 00 08-03 06:13 :00 No 1000mg 1,000 mg, Oral, ONCE, 1 dose, On Sun08/03/23 at 2015, [facility] maalox:diph enhydrAMINE :lidocaine 2 % viscous 1:1:1 (FIRST-MOUT HWASH BLM) oral suspension 15 mL 08-03 02:15: 00 08-03 06:14 :00 No 15mL 15 mL, Oral, ONCE, 1 dose, On Sun08/03/23 at 2015, Routine [facility] ondansetron 4 mg disintegrat ing tablet 08-03 00:00: 00 Yes [id number] 4mg Take 1 tablet by mouth every 8 (eight) hours as needed for Nausea and Vomiting (N/V). [facility] famotidine (PEPCID) 20 mg tablet 08-03 00:00: 00 09-03 04:59 :00 No [id number] 20mg Take 1 tablet by mouth in the morning and 1 tablet in the evening. Do all this for 30 days. [facility] iopamidol (ISOVUE 370-500 mL) injection 100 mL 06-28 07:45: 00 06-28 07:45 :00 No [id number] 100mL 100 mL, Intravenou s, ONCE, 1 dose, On Sun06/28/23 at 0145, Routine [facility] ketorolac (TORADOL) injection 30 mg 06-28 07:00: 00 06-28 06:32 :00 No 30mg 30 mg, Slow IV Push, ONCE, 1 dose, On Sun06/28/23 at 0100, [facility] NaCl 0.9% (NS) bolus infusion 1,000 mL 06-28 07:00: 00 06-28 07:47 :00 No 1000mL at 999 mL/hr, 1,000 mL, IV Infusion, ONCE, 1 dose, On Sun06/28/23 at 0100, [facility] ketorolac 10 mg tablet 06-28 00:00: 00 Yes [id number] 10mg Take 1 tablet by mouth every 6 (six) hours as needed for Pain (scale 7-10). [facility] ketorolac (TORADOL) injection 15 mg 06-21 01:45: 00 06-21 01:04 :00 No 15mg 15 mg, Slow IV Push, ONCE, 1 dose, On Sun06/20/23 at 1945, Routine [facility] ibuprofen 800 mg tablet 06-20 00:00: 00 09-06 00:00 :00 No [id number] 800mg Take 1 tablet by mouth every 8 (eight) hours as needed for Pain (scale 1-3). [facility] trazodone HCl (TRAZODONE ORAL) 12-20 22:34: 38 Yes Take by mouth. [facility] Nitrofurant oin&Nit. Macrocryst (MACROBID) 100 mg capsule 12-18 00:00: 00 04-28 00:00 :00 No 100mg Take 1 capsule by mouth in the morning and 1 capsule in the evening. [facility] quetiapine quetiapine No quetiapine [facility] estradiol 0.01% (0.1 mg/gram) vaginal cream Insert 0.5 g 3 times a week by vaginal route for 30 days. estradiol 0.01% (0.1 mg/gram) vaginal cream Insert 0.5 g 3 times a week by vaginal route for 30 days. No .5g Q56H estradiol 0.01% (0.1 mg/gram) vaginal cream Insert 0.5 g 3 times a week by vaginal route for 30 days. [facility] cephalexin 500 mg capsule Take 1 [...] by transderma l route for 90 days. [facility] progesteron e micronized 200 mg capsule Take 1 capsule every day by oral route at bedtime for 90 days. progesteron e micronized 200 mg capsule Take 1 capsule every day by oral route at bedtime for 90 days. No 1capsul e(s) Q1D progestero ne micronized 200 mg capsule Take 1 capsule every day by oral route at bedtime for 90 days. [facility] Immunizations Ordered Immunization Name Filled Immunization Name Date Status Comments Source TD, NOS 2015-04-09 00:00:00 Completed [facility] TD, NOS Unknown Completed [facility] TD, NOS Unknown Completed [facility] TD, NOS Unknown Completed [facility] TD, NOS Unknown Completed [facility] TD, NOS Unknown Completed [facility] TD, NOS Unknown Completed [facility] TD, NOS Unknown Completed [facility] TD, NOS Unknown Completed [facility] TD, NOS Unknown Completed [facility] Td(adult) unspecified formulation Unknown Completed Isabel Seybold [...] Systolic blood pressure 2025-01-04 17:24:16 130 mm[Hg] [facility] Diastolic blood pressure 2025-01-04 17:24:16 73 mm[Hg] [facility] Heart rate 2025-01-04 17:24:16 65 /min [facility] Body temperature 2025-01-04 17:24:16 36.67 Anjelica [facility] Respiratory rate 2025-01-04 17:24:16 16 /min [facility] Oxygen saturation in Arterial blood by Pulse oximetry 2025-01-04 17:24:16 99 /min [facility] Body height 2025-01-04 16:17:00 157.5 cm [facility] Body weight 2025-01-04 16:17:00 54.432 kg [facility] BMI 2025-01-04 16:17:00 21.95 kg/m2 [facility] Systolic blood pressure 2024-12-23 18:48:00 [...] External Heart rate 2024-12-18 13:07:00 78 /min Kelse y Seybold - External Body temperature 2024-12-18 [...] Systolic blood pressure 2024-10-24 05:00:00 128 mm[Hg] [facility] Diastolic blood pressure 2024-10-24 05:00:00 87 mm[Hg] [facility] Heart rate 2024-10-24 05:00:00 64 /min [facility] [facility] Body temperature 2024-10-24 05:00:00 36.5 Anjelica [facility] Respiratory rate 2024-10-24 05:00:00 12 /min [facility] Oxygen saturation in Arterial blood by Pulse oximetry 2024-10-24 05:00:00 97 /min [facility] Body height 2024-10-24 01:11:00 157.5 cm [facility] Body weight 2024-10-24 01:11:00 53.978 kg [facility] BMI 2024-10-24 01:11:00 21.77 kg/m2 [facility] Body height 2024-10-20 18:20:00 157.5 cm Adriane ey Seybold - External Body weight 2024-10-20 18:20:00 53.524 kg Adriane ey Seybold - External BMI 2024-10-20 18:20:00 21.58 kg/m2 Adriane ey Seybold - External Systolic blood pressure 2024-10-13 15:25:00 114 mm[Hg] Isabel Seybo ld - External Diastolic blood pressure 2024-10-13 15:25:00 76 mm[Hg] Isabel Seybo ld - External Heart rate 2024-10-13 15:25:00 91 /min Kelse y Seybold - External Body temperature 2024-10-13 15:25:00 36.28 Anjelica Isabel Seybold - External Respiratory rate 2024-10-13 15:25:00 16 /min Isabel Muñozybold - External Body height 2024-10-13 15:25:00 157.5 cm Adriane ey Seybold - External Body weight 2024-10-13 15:25:00 53.615 kg Adriane ey Seybold - External BMI 2024-10-13 15:25:00 21.62 kg/m2 Adriane ey Seybold - External Oxygen saturation in Arterial blood by Pulse oximetry 2024-10-13 15:25:00 98 /min Isabel Muñozybo ld - External BMI (Body Mass Index) 2024-10-08 00:00:00 21.8 kg/m2 [facility] BP Systolic 2024-10-08 00:00:00 128 mm[Hg] [facility] Height 2024-10-08 00:00:00 62 [in_i] [facility] Body Weight 2024-10-08 00:00:00 119.4 [lb_av] [facility] BP Diastolic 2024-10-08 00:00:00 64 mm[Hg] [facility] Systolic blood pressure 2024-10-03 14:44:00 119 mm[Hg] Isabel Muñozybo ld - External Diastolic blood pressure 2024-10-03 14:44:00 84 mm[Hg] Isabel Tomlinsono ld - External Heart rate 2024-10-03 14:44:00 76 /min Kelse y Seybold - External Body temperature 2024-10-03 14:44:00 36.61 Anjelica Isabel Muñozybold - External Respiratory rate 2024-10-03 14:44:00 16 /min Isabel Muñozybold - External Body height 2024-10-03 14:44:00 157.5 cm Adriane ey Seybold - External Body weight 2024-10-03 14:44:00 51.256 kg Adriane ey Seybold - External BMI 2024-10-03 14:44:00 20.67 kg/m2 Adriane ey Seybold - External Oxygen saturation in Arterial blood by Pulse oximetry 2024-10-03 14:44:00 95 /min Isabel Sediogeneso ld - External Body height 2024-09-29 14:44:00 157.5 cm Adriaen ey Seybold - External Body weight 2024-09-29 [...] Systolic blood pressure 2024-09-06 14:17:00 107 mm[Hg] [facility] Diastolic blood pressure 2024-09-06 14:17:00 83 mm[Hg] [facility] Heart rate 2024-09-06 14:17:00 72 /min [facility] Body temperature 2024-09-06 14:17:00 36.94 Anjelica [facility] Respiratory rate 2024-09-06 14:17:00 16 /min [facility] Body height 2024-09-06 14:17:00 157.5 cm [facility] Body weight 2024-09-06 14:17:00 52.164 kg [facility] BMI 2024-09-06 14:17:00 21.03 kg/m2 [facility] Oxygen saturation in Arterial blood by Pulse oximetry 2024-09-06 14:17:00 97 /min [facility] Systolic blood pressure 2024-09-01 16:01:00 112 mm[Hg] Isabel Muñozybo ld - External Diastolic blood pressure 2024-09-01 16:01:00 64 mm[Hg] Isabel Muñozybo ld - External Heart rate 2024-09-01 16:01:00 82 /min Norma Sewell - External Body temperature 2024-09-01 16:01:00 36.83 Anjelica Isabel Sewell - External Respiratory rate 2024-09-01 16:01:00 16 /min Isabel Tomlinsonold - External Body height 2024-09-01 16:01:00 157.5 cm Adriane ey Seybold - External Body weight 2024-09-01 16:01:00 52.436 kg Adriane ey Seybold - External BMI 2024-09-01 16:01:00 21.14 kg/m2 Adriane sarmiento Seybold - External Oxygen saturation in Arterial blood by Pulse oximetry 2024-09-01 16:01:00 98 /min Isabel Quinones ld - External Body weight 2024-08-18 14:32:00 53.978 kg Adriane ey Seybold - External BMI 2024-08-18 14:32:00 21.77 [...] blood pressure 2024-07-21 19:55:00 118 mm[Hg] Isabel diogeneso ld - External Diastolic blood pressure 2024-07-21 19:55:00 70 mm[Hg] Isabel Tomlinsono ld - External Heart rate 2024-07-21 19:55:00 74 /min Norma wilkes Seybold - External Body temperature 2024-07-21 19:55:00 36.78 Anjelica Isabel Sewell - External Respiratory rate 2024-07-21 19:55:00 16 /min Isabel Sewell - External Body height 2024-07-21 19:55:00 157.5 cm Adriane sarmiento Seybold - External Body weight 2024-07-21 19:55:00 52.527 kg Adriane sarmiento Seybold - External BMI 2024-07-21 19:55:00 21.18 kg/m2 Adriane sarmiento Seybold - External Oxygen saturation in Arterial blood by Pulse oximetry 2024-07-21 19:55:00 99 /min Isabel Quinones ld - External Body Weight 2024-07-15 00:00:00 112 [lb_av] [facility] BMI (Body Mass Index) 2024-07-15 00:00:00 20.5 kg/m2 [facility] Height 2024-07-15 00:00:00 62 [in_i] [facility] Systolic blood pressure 2024-06-30 00:30:00 105 mm[Hg] [facility] Diastolic blood pressure 2024-06-30 00:30:00 86 mm[Hg] [facility] Heart rate 2024-06-30 00:30:00 82 /min [facility] Respiratory rate 2024-06-30 00:30:00 19 /min [facility] Oxygen saturation in Arterial blood by Pulse oximetry 2024-06-30 00:30:00 96 /min [facility] Body temperature 2024-06-29 20:16:00 37.11 Anjelica [facility] Body height 2024-06-29 20:16:00 157.5 cm [facility] Body weight 2024-06-29 20:16:00 54.432 kg [facility] BMI 2024-06-29 20:16:00 21.95 kg/m2 [facility] Height 2024-06-18 00:00:00 62 [in_i] [...] External Heart rate 2024-06-16 20:41:00 70 /min Norma y Seybold - External Body temperature 2024-06-16 20:41:00 36.94 Anjelica Isabel Muñozybold - External Respiratory rate 2024-06-16 20:41:00 15 /min Isabel Muñozybold - External Body height 2024-06-16 20:41:00 157.5 cm Adriane ey Seybold - External Body weight 2024-06-16 20:41:00 55.339 kg Adriane sarmiento Seybold - External BMI 2024-06-16 20:41:00 22.31 kg/m2 Adriane sarmiento Seybold - External Oxygen saturation in Arterial blood by Pulse oximetry 2024-06-16 20:41:00 96 /min Isabel Muñozybo ld - External Systolic blood pressure 2024-05-05 16:26:00 119 mm[Hg] [facility] Diastolic blood pressure 2024-05-05 16:26:00 79 mm[Hg] [facility] Heart rate 2024-05-05 16:26:00 70 /min [facility] Body temperature 2024-05-05 16:26:00 36.72 Anjelica [facility] Respiratory rate 2024-05-05 16:26:00 18 /min [facility] Body height 2024-05-05 16:26:00 157.5 cm [facility] Body weight 2024-05-05 16:26:00 53.298 kg [facility] BMI 2024-05-05 16:26:00 21.49 kg/m2 [facility] Oxygen saturation in Arterial blood by Pulse oximetry 2024-05-05 16:26:00 99 /min [facility] BMI (Body Mass Index) 2024-04-30 00:00:00 21.9 kg/m2 [facility] Height 2024-04-30 00:00:00 62 [in_i] [facility] BP Systolic 2024-04-30 00:00:00 113 mm[Hg] [facility] BP Diastolic 2024-04-30 00:00:00 73 mm[Hg] [facility] Body Weight 2024-04-30 00:00:00 119.6 [lb_av] [facility] Systolic blood pressure 2024-04-28 21:05:00 100 mm[Hg] [facility] Diastolic blood pressure 2024-04-28 21:05:00 65 mm[Hg] [facility] Heart rate 2024-04-28 21:05:00 75 /min [facility] Body temperature 2024-04-28 21:05:00 36.94 Anjelica [facility] Body height 2024-04-28 21:05:00 157.5 cm [facility] Body weight 2024-04-28 21:05:00 53.524 kg [facility] BMI 2024-04-28 21:05:00 21.58 kg/m2 [facility] Oxygen saturation in Arterial blood by Pulse oximetry 2024-04-28 21:05:00 97 /min [facility] BP Systolic 2024-04-03 00:00:00 120 mm[Hg] [facility] Height 2024-04-03 00:00:00 62 [in_i] [facility] Body Weight 2024-04-03 00:00:00 114 [lb_av] [facility] BMI (Body Mass Index) 2024-04-03 00:00:00 20.9 kg/m2 [facility] BP Diastolic 2024-04-03 00:00:00 82 mm[Hg] [facility] Systolic blood pressure 2024-04-02 23:20:00 129 mm[Hg] [facility] Diastolic blood pressure 2024-04-02 23:20:00 77 mm[Hg] [facility] Heart rate 2024-04-02 23:20:00 88 /min [facility] Body temperature 2024-04-02 23:20:00 36.61 Anjelica [facility] Respiratory rate 2024-04-02 23:20:00 18 /min [facility] Oxygen saturation in Arterial blood by Pulse oximetry 2024-04-02 23:20:00 99 /min [facility] Body height 2024-04-02 18:16:00 157.5 cm [facility] Body weight 2024-04-02 18:16:00 52.164 kg [facility] BMI 2024-04-02 18:16:00 21.03 kg/m2 [facility] Systolic blood pressure 2024-03-26 04:00:00 140 mm[Hg] [facility] Diastolic blood pressure 2024-03-26 04:00:00 96 mm[Hg] [facility] Heart rate 2024-03-26 04:00:00 72 /min [facility] Body temperature 2024-03-26 04:00:00 36.83 Anjelica [facility] Respiratory rate 2024-03-26 04:00:00 17 /min [facility] Oxygen saturation in Arterial blood by Pulse oximetry 2024-03-26 04:00:00 94 /min [facility] Body height 2024-03-26 00:20:00 157.5 cm [facility] Body weight 2024-03-26 00:20:00 52.164 kg [facility] BMI 2024-03-26 00:20:00 21.03 kg/m2 [facility] BP Diastolic 2024-03-20 00:00:00 79 [...] Systolic blood pressure 2024-01-19 03:09:00 121 mm[Hg] [facility] Diastolic blood pressure 2024-01-19 03:09:00 104 mm[Hg] [facility] Heart rate 2024-01-19 03:09:00 65 /min [facility] Respiratory rate 2024-01-19 03:09:00 15 /min [facility] Oxygen saturation in Arterial blood by Pulse oximetry 2024-01-19 03:09:00 97 /min [facility] Body temperature 2024-01-18 22:21:00 37.28 Anjelica [facility] Body height 2024-01-18 22:21:00 157.5 cm [facility] Body weight 2024-01-18 22:21:00 51.256 kg [facility] BMI 2024-01-18 22:21:00 20.67 kg/m2 [facility] Systolic blood pressure 2023-12-18 17:30:00 108 mm[Hg] [facility] Diastolic blood pressure 2023-12-18 17:30:00 79 mm[Hg] [facility] Heart rate 2023-12-18 17:30:00 62 /min [facility] Body temperature 2023-12-18 17:30:00 36.89 Anjelica [facility] Oxygen saturation in Arterial blood by Pulse oximetry 2023-12-18 17:30:00 96 /min [facility] Respiratory rate 2023-12-18 16:30:00 18 /min [facility] Body height 2023-12-18 15:31:00 157.5 cm [facility] Body weight 2023-12-18 15:31:00 49.896 kg [facility] BMI 2023-12-18 15:31:00 20.12 kg/m2 [facility] Systolic blood pressure 2023-09-29 03:39:00 125 mm[Hg] [facility] Diastolic blood pressure 2023-09-29 03:39:00 86 mm[Hg] [facility] Heart rate 2023-09-29 03:39:00 68 /min [facility] Res[facility] rate 2023-09-29 03:39:00 16 /min [facility] Oxygen saturation in Arterial blood by Pulse oximetry 2023-09-29 03:39:00 98 /min [facility] Body temperature 2023-09-29 01:15:00 36.72 Anjelica [facility] Body height 2023-09-29 01:15:00 157.5 cm [facility] Body weight 2023-09-29 01:15:00 52.164 kg [facility] BMI 2023-09-29 01:15:00 21.03 kg/m2 [facility] Systolic blood pressure 2023-08-04 07:35:00 110 mm[Hg] [facility] Diastolic blood pressure 2023-08-04 07:35:00 77 mm[Hg] [facility] Heart rate 2023-08-04 07:35:00 69 /min [facility] Respiratory rate 2023-08-04 07:35:00 16 /min [facility] Oxygen saturation in Arterial blood by Pulse oximetry 2023-08-04 07:35:00 96 /min [facility] Body temperature 2023-08-04 05:03:00 36.78 Anjelica [facility] Body weight 2023-08-04 01:38:00 52.164 kg [facility] BMI 2023-08-04 01:38:00 21.03 kg/m2 [facility] Systolic blood pressure 2023-06-28 07:00:00 130 mm[Hg] [facility] Diastolic blood pressure 2023-06-28 07:00:00 96 mm[Hg] [facility] Heart rate 2023-06-28 07:00:00 72 /min [facility] Body temperature 2023-06-28 07:00:00 37.17 Anjelica [facility] Respiratory rate 2023-06-28 07:00:00 16 /min [facility] Oxygen saturation in Arterial blood by Pulse oximetry 2023-06-28 07:00:00 99 /min [facility] Body height 2023-06-28 06:07:00 157.5 cm [facility] Body weight 2023-06-28 06:07:00 54.432 kg [facility] BMI 2023-06-28 06:07:00 21.95 kg/m2 [facility] Systolic blood pressure 2023-06-21 01:07:11 101 mm[Hg] [facility] Diastolic blood pressure 2023-06-21 01:07:11 72 mm[Hg] [facility] Heart rate 2023-06-21 01:07:11 76 /min [facility] Body temperature 2023-06-21 01:07:11 37.06 Anjelica [facility] Respiratory rate 2023-06-21 01:07:11 16 /min [facility] Oxygen saturation in Arterial blood by Pulse oximetry 2023-06-21 01:07:11 98 /min [facility] Body height 2023-06-20 22:50:00 157.5 cm [facility] Body weight 2023-06-20 22:50:00 54.432 kg [facility] BMI 2023-06-20 22:50:00 21.95 kg/m2 [facility] Systolic blood pressure 2024-04-28 21:05:00 100 mm[Hg] [facility] Diastolic blood pressure 2024-04-28 21:05:00 65 mm[Hg] [facility] Heart rate 2024-04-28 21:05:00 75 /min [facility] Body temperature 2024-04-28 21:05:00 36.94 Anjelica [facility] Body height 2024-04-28 21:05:00 157.5 cm [facility] Body weight 2024-04-28 21:05:00 53.524 kg [facility] BMI 2024-04-28 21:05:00 21.58 kg/m2 [facility] Oxygen saturation in Arterial blood by Pulse oximetry 2024-04-28 21:05:00 97 /min [facility] Respiratory rate 2024-04-02 23:20:00 18 /min [facility] Procedures Procedure Date / Time Performed Performing Clinician Source URINALYSIS 2024-10-24 02:55:00 Yuly Saucedo [facility] CT ABDOMEN PELVIS W CONTRAST 2024-10-24 02:22:16 Yuly Saucedo [facility] LIPASE 2024-10-24 01:47:00 AuYuly la [facility] TROPONIN I 2024-10-24 01:47:00 Yuly Saucedo [facility] COMP. METABOLIC PANEL ([id number]) 2024-10-24 01:47:00 Yuly Saucedo [facility] CBC WITH DIFF 2024-10-24 01:47:00 Yuly Saucedo [facility] N-TERMINAL PRO-BNP 2024-10-24 01:47:00 Yuly Deleon [facility] XR ANKLE 3+ VW LEFT 2024-09-06 15:15:18 Daniela Norris [facility] CT, abdomen + pelvis, w/ contrast 2024-07-24 00:00:[address] [facility], abdomen + pelvis, w/wo contrast 2024-07-18 00:00:[address] [facility] [address], abdomen + pelvis, w/ contrast 2024-07-15 00:00:00 [facility] CHANGE DRAINAGE DEVICE IN PELVIC CAVITY, EXTERNAL 2024-07-04 00:00:00 KYRPO [facility] DRAINAGE OF VAGINA WITH DRAINAGE DEVICE, PERC APPR 2024-07-01 00:00:[id number] [facility] DRAINAGE OF PELVIC CAVITY WITH DRAIN DEV, PERC KIMI 2024-07-01 00:00:00 [facility][id number] [facility] INSERTION OF INFUSION DEVICE INTO UPPER VEIN, PERC 2024-06-30 00:00:[id number] [facility] CT ABDOMEN PELVIS W CONTRAST 2024-06-29 21:51:47 AuYuly la [facility] LIPASE 2024-06-29 20:47:00 Yuly Saucedo [facility] COMP. METABOLIC PANEL ([id number]) 2024-06-29 20:47:00 Yuly Saucedo [facility] CBC WITH DIFF 2024-06-29 20:47:00 Yuly Saucedo [facility] Laparoscopic Hysterectomy 2024-06-23 00:00:00 [facility] MAMMO, diagnostic, digital, bilateral 2024-04-30 00:00:00 [facility] US, breast, unilateral 2024-04-30 00:00:00 [facility] POCT URINALYSIS 2024-04-28 22:14:00 [facility] POCT URINALYSIS 2024-04-28 22:14:00 [facility] MAMMO, diagnostic, digital, bilateral 2024-04-23 00:00:00 [facility] US, breast, bilateral 2024-04-23 00:00:00 [facility] US, breast, unilateral 2024-04-03 00:00:00 [facility] RAPID STREP SCREEN FOR GROUP A 2024-04-02 18:57:00 Yuly Saucedo [facility] INFLUENZA A/B RSV COVID NAAT 2024-04-02 18:57:00 Yuly Saucedo [facility] INFLUENZA A/B RSV COVID NAAT 2024-04-02 18:57:00 Yuly Saucedo [facility] RAPID STREP SCREEN FOR GROUP A 2024-04-02 18:57:00 Yuly Saucedo [facility] THROAT CULTURE 2024-04-02 18:57:00 Yuly Saucedo [facility] LAB ONLY COVID INTERPRETATION 2024-04-02 18:57:00 Yuly Saucedo [facility] US OVARY TORSION 2024-03-26 03:17:59 Jona Granados [facility] US OVARY TORSION 2024-03-26 03:17:59 Jona Granados [facility] CT ABDOMEN PELVIS W CONTRAST 2024-03-26 01:27:33 Jona Granados [facility] CT ABDOMEN PELVIS W CONTRAST 2024-03-26 01:27:33 Jona Granados [facility] BASIC METABOLIC PANEL (NA, K, CL, CO2, GLUCOSE, BUN, CREATININE, CA) 2024-03-26 00:48:00 Jona Granados [facility] CBC WITH DIFF 2024-03-26 00:48:00 Jona Granados [facility] CBC WITH DIFF 2024-03-26 00:48:00 Jona Granados [facility] BASIC METABOLIC PANEL (NA, K, CL, CO2, GLUCOSE, BUN, CREATININE, CA) 2024-03-26 00:48:00 Jona Granados [facility] URINALYSIS 2024-03-26 00:45:00 Jona Granados [facility] POCT TEST 2024-03-26 00:45:00 Jona Granados [facility] URINALYSIS 2024-03-26 00:45:00 Jona Granados [facility] POCT TEST 2024-03-26 00:45:00 Jona Granados [facility] US TRANSVAGINAL 2024-01-24 00:00:[address] ABDOMEN PELVIS W CONTRAST 2024-01-19 01:54:58 [facility]24-[facility]-19 01:21:00 Caren Johnston [facility] COMP. METABOLIC PANEL ([id number]) 2024-01-19 01:21:00 Caren Johnston [facility] CBC WITH DIFF 2024-01-19 01:20:00 Caren Johnston [facility] URINALYSIS 2024-01-18 22:34:00 [facility] 2024-01-18 22:34:00 Agueda Johnston [facility] CT LUMBAR SPINE WO CONTRAST 2023-12-18 16:46:32 Sina [facility] CT ABDOMEN PELVIS WO CONTRAST 2023-12-18 16:32:00 Serjio Andino [facility] COMP. METABOLIC PANEL ([id number]) 2023-12-18 16:22:00 Serjio Andino [facility] CBC WITH DIFF 2023-12-18 16:22:00 Serjio Andino [facility] POCT TEST 2023-12-18 15:46:00 Jennifer Andino [facility] URINALYSIS 2023-12-18 15:45:00 Serjio [facility] LIPASE 2023-08-04 05:13:00 Kossendy [facility] TEST, SERUM 2023-08-04 05:13:00 Uyen Montilla [facility] COMP. METABOLIC PANEL ([id number]) 2023-08-04 05:13:00 Kossendy [facility] CBC WITH DIFF 2023-08-04 05:12:00 [facility] US GALL BLADDER 2023-08-04 02:59:30 [facility] 2023-08-04 02:31:00 [facility] CONSENT/REFUSAL FOR DIAGNOSIS AND TREATMENT 2023-08-04 01:36:23 Doctor Unassigned, [place] [facility] COMP. METABOLIC PANEL ([id number]) 2023-06-28 06:30:00 Lee Jett [facility] CBC WITH DIFF 2023-06-28 06:30:00 Bret [facility] URINALYSIS 2023-06-28 06:30:00 [facility] URINE DRUG (IMMUNOASSAY) - COMPREHENSIVE DRUG SCREEN W/O REFLEX 2023-06-28 06:30:00 [facility] CONSENT/REFUSAL FOR DIAGNOSIS AND TREATMENT 2023-06-28 05:58:09 Doctor Unassigned, [place] [facility] PELVIS COMPLETE WITH TRANSVAGINAL 2023-06-21 00:41:20 Aroldo [facility] POCT TEST 2023-06-21 00:10:00 Lashawn Kendrick [facility] COMP. METABOLIC PANEL ([id number]) 2023-06-21 00:01:00 Yesenia Kendrick [facility] CBC WITH DIFF 2023-06-21 00:01:00 Yesenia Kendrick [facility] URINALYSIS 2023-06-21 00:01:00 [facility] NOTICE OF PRIVACY PRACTICES 2023-06-20 22:47:12 Doctor Unassigned, [place] [facility] CONSENT/REFUSAL FOR DIAGNOSIS AND TREATMENT 2023-06-20 22:46:00 Doctor Unassigned, [place] [facility] Cholecystectomy 2009-06-04 00:00:00 [facility] Ligation of Fallopian Tube 1999-06-04 00:00:00 [facility] 1992-06-04 00:00:00 [facility] En[facility] Start Date/Time End Date/Time Encounter Type Admission Type Attending [facility] Facility Care Department Encounter ID Source 2025-06-17 08:45:00 2025-06-17 08:45:00 Outpatient AKIL MENDEZ [id number] [facility] 2025-06-15 10:00:00 2025-06-15 10:00:00 Outpatient AKIL MENDEZ [id number] [facility] 2025-01-13 12:30:00 2025-01-13 12:30:00 Outpatient ISABEL AUSTIN [id number] [facility] 2025-01-10 00:00:00 2025-01-10 00:00:00 Outpatient MONAE HOYOS [id number] [facility] 2025-01-10 00:00:00 2025-01-10 00:00:00 Outpatient JAMMIE GAO [id number] [facility] 2025-01-04 11:19:00 2025-01-04 12:29:00 Emergency X SERJIO ANDINO DONNE[facility] [id number] [facility] 2024-12-30 00:00:00 2024-12-30 00:00:00 Outpatient MD ISABEL GARCIA [id number] [facility] 2024-12-23 13:45:00 2024-12-23 13:45:00 Outpatient KAYLAH CLARKE [id number] [facility] 2024-12-22 14:30:00 2024-12-22 14:30:00 Outpatient BEBE SOTELOSEY [id number] [facility] 2024-12-19 00:00:00 2024-12-19 00:00:00 Outpatient AKIL MENDEZ ISABEL [id number] [facility] 2024-12-19 00:00:00 2024-12-19 00:00:00 Outpatient AKIL MENDEZ ISABEL [id number] [facility] 2024-12-18 08:15:00 2024-12-18 08:15:00 Outpatient YANGZAAKIL Flowers [id number] [facility] 2024-12-18 00:00:00 2024-12-18 00:00:00 Outpatient AKIL MENDEZ ISABEL [id number] [facility] 2024-12-16 11:05:00 2024-12-16 11:05:00 Outpatient ISABEL ISABEL [id number] [facility] 2024-12-10 14:30:00 2024-12-10 14:30:00 Outpatient GUSTABO APODACA [id number] [facility] 2024-10-29 00:00:00 2024-11-29 18:21:40 Patient Secure Msg Doctor Unassigned, [place] Doctor Unassigned, [place] [facility] [id number] 4.2.7.2.686 [id number] [facility] 2024-11-28 12:30:00 2024-11-28 12:30:00 Outpatient RADHA QUINTANA [facility] [id number] [facility] 2024-11-24 00:00:00 2024-11-24 00:00:00 Outpatient AKIL MENDEZ ISABEL [id number] [facility] 2024-11-14 14:30:00 2024-11-14 14:30:00 Outpatient AKIL MENDEZ ISABEL AUSTIN [id number] [facility] 2024-11-06 00:00:00 2024-11-06 00:00:00 Outpatient ISABEL AUSTIN [id number] [facility] 2024-10-29 13:18:36 2024-10-29 13:18:36 Outpatient SFA [facility] [id number] Josef Leslie 2024-10-23 20:07:00 2024-10-24 00:21:00 Emergency X AUFDERHEIDE , YULY AUFDERHEIDE , YULY [facility] ERT [id number] [facility] 2024-10-24 00:00:00 2024-10-24 00:00:00 Outpatient AKIL MENDEZ ISABEL AUSTIN [id number] [facility] 2024-10-20 13:10:00 2024-10-20 13:10:00 Outpatient ELYSIATYREE ISABEL AUSTIN [id number] [facility] 2024-10-18 00:00:00 2024-10-18 00:00:00 Outpatient AKIL MENDEZ ISABEL AUSTIN [id number] [facility] 2024-10-14 13:10:00 2024-10-14 13:10:00 Outpatient ELYSIATYREE ISABEL AUSTIN [id number] [facility] 2024-10-14 10:40:00 2024-10-14 10:40:00 Outpatient ELYSIATYREE OLEA ISABEL AUSTIN [id number] [facility] 2024-10-13 10:30:00 2024-10-13 10:30:00 Outpatient AKIL MENDEZ ISABEL AUSTIN [id number] [facility] 2024-10-10 00:00:00 2024-10-10 00:00:00 Outpatient MD ISABEL GARCIA [id number] [facility] 2024-10-09 00:00:00 2024-10-09 00:00:00 Outpatient BEBE SOTELO [id number] [facility] 2024-10-08 00:00:00 2024-10-08 00:00:00 Saulo Montenegro MD: [address] [place] [address] Dr [address], [place] [address], [place] [address] , Ph. Counts include 234 beds at the [facility] - GC_GCBZW_[facility] Price* [id number] [facility] 2024-10-03 09:30:00 2024-10-03 09:30:00 Outpatient BEBE SOTELO ISABEL AUSTIN [id number] [facility] 2024-10-02 00:00:00 2024-10-02 00:00:00 Outpatient KVNG IBRAHIM [id number] [facility] 2024-10-01 00:00:00 2024-10-01 00:00:00 Outpatient MD ISABEL GARCIA [id number] [facility] 2024-10-01 00:00:00 2024-10-01 00:00:00 Outpatient AKIL MENDEZ [id number] [facility] 2024-10-01 00:00:00 2024-10-01 00:00:00 Outpatient IBRAHIM KVNG ISABEL AUSTIN [id number] [facility] 2024-09-29 09:50:00 2024-09-29 09:50:00 Outpatient TYREE NAIDU [id number] [facility] 2024-09-15 14:37:12 2024-09-15 14:37:12 Outpatient SFA SFA [id number] Josef Leslie 2024-09-10 00:00:00 2024-09-10 00:00:00 TIMMY Abdullahi: [address], [address], [place] [address] , Ph. Counts include 234 beds at the [facility] - GC_GCBZW_Temitope Price* [id number] [facility] 2024-09-06 09:19:00 2024-09-06 12:31:00 Emergency X JAQUI NORRIS ERT [id number] [facility] 2024-09-06 09:19:00 2024-09-06 12:31:00 Emergency Jaqui Norris [place] [address].2.840.114 350.1.13.10 4.2.7.2.686 [id number] [facility] 2024-09-01 11:00:00 2024-09-01 11:00:00 Outpatient PREZAAKIL Flowers ISABEL AUSTIN [id number] [facility] 2024-08-18 09:20:00 2024-08-18 09:20:00 Outpatient BUCKY NAIDUUDDIN ISABEL AUSTIN [id number] [facility] 2024-08-18 09:15:00 2024-08-18 09:15:00 Outpatient ISABEL AUSTIN [id number] [facility] 2024-08-15 00:00:00 2024-08-15 00:00:00 Outpatient VITALY NAIDUGLADYS AUSTIN [id number] [facility] 2024-08-13 00:00:00 2024-08-13 00:00:00 TIMMY Abdullahi: [address], [address], [place] [address] , Ph. Counts include 234 beds at the [facility] - GC_GCBZW_[facility]* [id number] [facility] 2024-08-11 00:00:00 2024-08-11 00:00:00 Outpatient PRERYANN LANTIGUADAMIAN AUSTIN [id number] [facility] 2024-08-05 00:00:00 2024-08-05 00:00:00 Outpatient YANGZARYANN FlowersDAMIAN AUSTIN [id number] [facility] 2024-08-04 00:00:00 2024-08-04 00:00:00 Outpatient PRERHINA AKIL AUSTIN [id number] [facility] 2024-07-29 09:05:00 2024-07-29 09:05:00 Outpatient BILLIE [facility] [id number] [address] [place] [address] 2024-07-29 06:25:00 2024-07-29 06:25:00 Outpatient BILLIE Saulo Montenegro HCAPM RADI [id number] 34 [facility] 2024-07-29 00:00:00 2024-07-29 00:00:00 Saulo Montenegro MD: [address], [address], [place] [address] , Ph. Counts include 234 beds at the [facility] - [facility]GCBZW[facility]* [id number] [facility] 2024-07-25 11:45:00 2024-07-25 11:45:00 Outpatient ISABEL AUSTIN [id number] [facility] 2024-07-21 14:00:00 2024-07-21 14:00:00 Outpatient AKIL MENDEZ [id number] [facility] 2024-07-16 00:00:00 2024-07-16 00:00:00 Outpatient AKIL MENDEZ [id number] [facility] 2024-07-15 00:00:00 2024-07-15 00:00:00 Saulo Montenegro MD: [address], [address], [place] [address] , Ph. Counts include 234 beds at the [facility] - [facility]BZW_[facility]* [id number] [facility] 2024-07-14 12:00:00 2024-07-14 12:00:00 Outpatient LAB90 ISABEL AUSTIN [id number] [facility] 2024-07-11 08:07:00 2024-07-11 08:07:00 Outpatient Suma Winchester HCAPM RADI [id number] 80 [facility] 2024-06-29 20:29:00 2024 15:29:00 Inpatient EM Levon Hurley HCAPM MEDI.01 [id number] 49 [facility] 2024-06-30 00:17:00 2024-06-30 00:17:00 Outpatient Levon Hurley HCACL LABO [id number] 01 [facility] 2024-06-30 00:00:00 2024-06-30 00:00:00 Outpatient AKIL MENDEZ ISABEL AUSTIN [id number] [facility] 2024-06-29 14:14:00 2024-06-29 18:38:00 Emergency X YULY SAUCEDO ERIN [facility] E[facility] [id number] [facility] 2024-06-29 14:14:00 2024-06-29 18:38:00 Emergency Yuly Saucedo Arcelia [facility] 1.2.840.114 350.1.13.10 4.2.7.2.686 [id number] [facility] 2024-06-19 00:00:00 2024-06-27 08:50:50 Telephone Paresh Curiel [facility] 1.2.840.114 350.1.13.10 4.2.7.2.686 [id number] [facility] 2024-06-23 08:39:00 2024-06-23 08:39:00 Outpatient BILLIE Lawsonfavianfrankiegenevieve Saulo [facility] ROBI [id number] 63 [facility] 2024-06-18 00:00:00 2024-06-18 00:00:00 Arlen Hare, RADIO ARTIST: [address], [place] [address], [place] [address] , Ph. Counts include 234 beds at the [facility] - [facility]GCBZW_[facility]* [id number] [facility] 2024-06-17 09:05:00 2024-06-17 09:05:00 Outpatient LAB90 ISABEL AUSTIN [id number] [facility] 2024-06-17 00:00:00 2024-06-17 00:00:00 Outpatient JOHANSEN DANDRE ISABEL AUSTIN [id number] [facility] 2024-06-17 00:00:00 2024-06-17 00:00:00 Outpatient YANGRHINA AKIL AUSTIN [id number] Isabel [facility] 2024-06-16 15:35:00 2024-06-16 15:35:00 Outpatient LAB90 ISABEL AUSTIN [id number] [facility] 2024-06-16 14:30:00 2024-06-16 14:30:00 Outpatient AKIL MENDEZ ISABEL [id number] [facility] 2024-06-10 00:00:00 2024-06-10 00:00:00 Outpatient SAULO HUDDLESTON [facility] [id number] [facility] 2024-05-26 00:00:00 2024-05-30 10:34:01 Telephone Moisés Paresh [facility] KARLEE?WENDIEGenevieve [facility] 1.2.840.114 350.1.13.10 4.2.7.2.686 [id number] [facility] 2024-05-22 00:00:00 2024-05-23 15:55:04 Telephone Moisés Paresh [facility] KARLEE?PADMA [facility] 1.2.840.114 350.1.13.10 4.2.7.2.686 [id number] [facility] 2024-05-05 13:19:05 2024-05-05 13:19:05 Outpatient SFA [facility] [id number] Josef Leslie 2024-05-05 10:30:00 2024-05-05 10:51:29 Outpatient R PARESH CURIEL [facility] [id number] [facility] 2024-05-05 10:30:00 2024-05-05 10:51:29 Office [facility]és [facility] 1.2.840.114 350.1.13.10 4.2.7.2.686 [id number] [facility] 2024-04-30 00:00:00 2024-04-30 10:16:07 Nurse Triage Sherri Hall Tina M [facility] ([facility]) 1.2.840.114 350.1.13.10 4.2.7.2.686 [id number] [facility] 2024-04-30 00:00:00 2024-04-30 00:00:00 Arlen Hare, RADIO ARTIST: [address], [address], [place] [address] , Ph. Counts include 234 beds at the [facility] - GC_GCBZW_La [facility]* [id number] [facility] 2024-04-29 07:30:00 2024-04-29 07:30:00 Outpatient PARESH PAREDES [facility] [id number] [facility] 2024-04-28 16:45:00 2024-04-28 16:45:00 Harm Reduction Worker Visit Paresh Curiel Lab, [facility] - Db 1.2.840.1 12168.1.1 3.104.2.7 .3.383036 .8 [id number] [facility] 2024-04-28 15:00:00 2024-04-28 15:50:34 Outpatient PARESH PAREDES [facility] [id number] [facility] 2024-04-28 15:00:00 2024-04-28 15:50:34 Office Visit Paresh Curiel 1.2.840.1 91188.1.1 3.104.2.7 .3.468385 .8 [id number] [facility] 2024-04-28 00:00:00 2024-04-28 00:00:00 Travel 1.2.840.1 96977.1.1 3.104.2.7 .3.234375 .8 1.2.840.114 350.1.13.10 4.2.7.3.698 084.8 [id number] [facility] 2024-04-21 09:00:00 2024-04-21 09:00:00 Outpatient R PARESH CURIEL [facility] [id number] [facility] 2024-04-17 10:00:00 2024-04-17 10:00:00 Outpatient R ANA CRISTINA RAYMOND [facility] [id number] [facility] 2024-04-17 00:00:00 2024-04-17 09:21:02 Telephone Ana Cristina Raymond A 1.2.840.1 54278.1.1 3.104.2.7 .3.202471 .8 [id number] [facility] 2024-04-17 00:00:00 2024-04-17 00:00:00 Travel 1.2.840.1 17211.1.1 3.104.2.7 .3.574296 .8 1.2.840.114 350.1.13.10 4.2.7.3.698 084.8 [id number] [facility] 2024-04-15 00:00:00 2024-04-15 10:02:16 Telephone Pcp, Patient Does Not Have A 1.2.840.1 06894.1.1 3.104.2.7 .3.208239 .8 [id number] [facility] 2024-04-03 00:00:00 2024-04-03 00:00:00 Ashely Drew, RADIO ARTIST: [address], [facility] [address], [place] [address] , Ph. Counts include 234 beds at the [facility] - GC_GCBZW_La [facility]* [id number] [facility] 2024-04-02 13:18:00 2024-04-02 18:26:00 Emergency X YULY SAUECDO ERIN [facility] ERT [id number] [facility] 2024-04-02 13:18:00 2024-04-02 18:26:00 Emergency Yuly Saucedo 1.2.840.1 80491.1.1 3.104.2.7 .3.812456 .8 [id number] [facility] 2024-04-02 00:00:00 2024-04-02 00:00:00 Travel 1.2.840.1 91683.1.1 3.104.2.7 .3.423722 .8 1.2.840.114 350.1.13.10 4.2.7.3.698 084.8 [id number] [facility] 2024-03-25 19:24:00 2024-03-25 23:06:00 Emergency X ROBERTA, CHRISSYSHAWNA JÚNIORKENZIE, CHRISSYRAMSES [facility] E[facility] [id number] [facility] 2024-03-25 19:24:00 2024-03-25 23:06:00 Emergency Jona Granados D 1.2.840.1 23725.1.1 3.104.2.7 .3.419070 .8 [id number] [facility] 2024-03-25 00:00:00 2024-03-25 00:00:00 Travel 1.2.840.1 97764.1.1 3.104.2.7 .3.372760 .8 1.2.840.114 350.1.13.10 4.2.7.3.698 084.8 [id number] [facility] 2024-03-20 00:00:00 2024-03-20 00:00:00 Saulo Montenegro MD: [address], [facility] [address], [place] [address] , Ph. Counts include 234 beds at the [facility] - GC_GCBZW_[facility] Price* [id number] [facility] 2024-03-06 00:00:00 2024-03-06 00:00:00 LEEANN HobbsP: [address], [facility] [address], [place] [address] , Ph. Counts include 234 beds at the [facility] - GC_GCBZW_[facility] Price* [id number] [facility] 2024-02-21 00:00:00 2024-02-21 00:00:00 JUAN Martínez: [address], [address], [place] [address] , Ph. Counts include 234 beds at the [facility] - GC_GCBZW_[employer] Price* [id number] [facility] 2024-01-31 00:00:00 2024-01-31 00:00:00 JUAN Martínez: [address], [address], [place] [id number] , Ph. Counts include 234 beds at the [facility] - GC_GCBZW_[facility] Price* [id number] [facility] 2024-01-24 00:00:00 2024-01-24 13:13:00 Letter (Out) David Blood [facility] 1.2.840.114 350.1.13.10 4.2.7.2.686 [id number] [facility] 2024-01-24 00:00:00 2024-01-24 00:00:00 Saulo Montenegro MD: [address], [address], [place] [address] , Ph. Counts include 234 beds at the [facility] - GC_GCBZW_[facility] [facility]* [id number] [facility] 2024-01-21 00:00:00 2024-01-21 00:00:00 JUAN Martínez: [address], [address], [place] [address] , Ph. Counts include 234 beds at the [facility] - GC_GCBZW_[facility]* [id number] [facility] 2024-01-18 17:23:00 2024-01-18 22:18:00 Emergency X TINY, CAREN JOHNSTON, CAREN [facility] E[facility] [id number] [facility] 2024-01-18 17:23:00 2024-01-18 22:18:00 Emergency Caren Johnston [facility] 1.2.840.114 350.1.13.10 4.2.7.2.686 [id number] [facility] 2024-01-14 09:35:44 2024-01-14 09:35:44 Outpatient [facility] [id number] Josef Leslie 2023-12-24 15:36:17 2023-12-24 15:36:17 Outpatient [facility] [id number] Josef Leslie 2023-12-18 10:33:00 2023-12-18 13:04:00 Emergency X SERJIO ANDINO DONNELL [facility] E[facility] [id number] [facility] 2023-12-18 10:33:00 2023-12-18 13:04:00 Emergency Serjio Andino [facility] 1.2.840.114 350.1.13.10 4.2.7.2.686 [id number] [facility] 2023-12-17 08:45:10 2023-12-17 08:45:10 Outpatient [facility] [id number] Josef Leslie 2023-12-03 13:05:31 2023-12-03 13:05:31 Outpatient [facility] [id number] Josef Leslie 2023-11-20 14:56:11 2023-11-20 14:56:11 Outpatient [facility] [id number] Josef Leslie 2023-11-13 13:46:51 2023-11-13 13:46:51 Outpatient [facility] [id number] Josef Leslie 2023-11-12 14:45:00 2023-11-12 14:45:00 Outpatient ALIN WYATT [id number] [facility] 2023-09-28 20:21:00 2023-09-28 22:45:00 Emergency X MELINDAINESCAREN [facility] [id number] [facility] 2023-09-28 20:21:00 2023-09-28 22:45:00 Emergency Caren Johnston [facility] 1.0.114 350.1.13.10 4.2.7.2.686 [id number] [facility] 2023-09-04 00:00:00 2023-09-04 00:00:00 Patient Outreach Beba Crespo 1.0.114 350.1.13.10 4.2.7.2.686 [id number] [facility] 2023-08-24 00:00:00 2023-08-24 00:00:00 Patient Secure Msg Doctor Unassigned, [place] [facility] 1.0.114 350.1.13.10 4.2.7.2.686 [id number] [facility] 2023-08-03 19:46:00 2023-08-04 01:39:00 Emergency X RICH MONTILLA PAUL [facility] [id number] [facility] 2023-08-03 19:46:00 2023-08-04 01:39:00 [facility] 1..114 350.1.13.10 4.2.7.2.686 [id number] [facility] 2023-06-28 00:00:00 2023-06-28 01:50:00 Emergency X LEE JETT [facility] E[facility] [id number] [facility] 2023-06-28 00:00:00 2023-06-28 01:50:00 Emergency Lee Jett [facility] 1.2.114 350.1.13.10 4.2.7.2.686 [id number] [facility] 2023-06-20 16:53:00 2023-06-20 19:24:00 Emergency Yesenia Kendrick [facility] 1.2.840.114 350.1.13.10 4.2.7.2.686 [id number] [id number] [facility] 2023-06-20 16:53:00 2023-06-20 19:24:00 Emergency X YESENIA KENDRICK [facility] E[facility] [id number] [facility] 2023-06-20 16:53:00 2023-06-20 16:53:00 Emergency X YESENIA KENDRICK [facility] E[facility] [id number] [facility] Results Test Description Test Time Test Comments [...] abnormality. Minimal levoconvex curvature of the [facility]arspine [facility] Zev-Hvy3782-22-23 02:50:29* Test Item Value Reference Range Interpretation Comme nts NT-proBNP (test code = 98622-8) 22 pg/mL <=125 Lab Interpretation (test cod e = 41595-5) Normal [facility] (36190)2024-10-24 02:34:28* Test Item Value Reference Range Interpretation Comme nts NA (test code = 0027574461) 138 mmol/L 135-145 K (test code = 9686964696) 4.2 mmol/L 3.5-5.0 CL (test code = 5208959583) 105 mmol/L 98-108 CO2 TOTAL (test code = 9979376938) 28 mmol/L 23-31 AGAP (test code = 1069393582) 5 2-16 BUN (test code = 1522538076) 23 mg/dL 7-23 GLUCOSE (test code = 1734104480) 74 mg/dL 70-110 CREATININE (test code = 2160-0) 0.77 mg/dL 0.50-1.04 TOTAL BILI (test code = 2126735813) 0.7 mg/dL 0.1-1.1 CALCIUM (test code = 9426015449) 9.1 mg/dL 8.6-10.6 T PROTEIN (test code = 9441737297) 8.1 g/dL 6.3-8.2 ALBUMIN (test code = 9361532834) 4.3 g/dL 3.5-5.0 ALK PHOS (test code = 4227254174) 63 U/L 34-122 ALTv (test code = 1742-6) 76 U/L 5-35 H AST(SGOT) (test code = 5094333212) 58 U/L 13-40 H eGFR (test code = 75848-1) 94.1 mL/min/1.73m2 CKD-EPI eGFR (2020). Assuming creatinine has been stable day-to-day for at least three months, the eGFR indicates Category G1 (>= 90 mL/min/1.73 m2) Lab Interpretation (test code = 46279-8) Abnormal [facility] 02:34:28* Test Item Value Reference Range Interpretation Comme nts LIPASE (test code = 9715940315) 211 U/L 0-220 Lab Interpretation (test cod e = 83929-8) Normal [facility] Center[facility]bc with Liub1151-11-95 02:12:23* Test Item Value Reference Range Interpretation [...] 33.1 g/dL 31.6-35.1 RDW-SD (test code = 25254-6) 45.5 fL 39.0-49.9 RDW-CV (test code = 788-0) 13.4 % 12.0-15.5 PLT (test code = 777-3) 274 166-358 MPV (test code = 65253-2) 9.7 fL 9.5-12.9 NRBC/100 WBC (test code = 1692971817) 0 0.0-10.0 NRBC x10^3 (test code = 3125462761) See_Comment [Automated messa ge] The system which generated this result transmitted reference range: 10*3/?L. The reference range was not used to interpret this result as normal/abnormal. GRAN MAT (NEUT) % (test code = 770-8) 65.3 % IMM GRAN % (test code = 0270337328) 0.3 % LYMPH % (test code = 736-9) 21.9 % MONO % (test code = 5905-5) 9.8 % EOS % (test code = 713-8) 2.2 % BASO % (test code = 706-2) 0.5 % GRAN MAT x10^3(ANC) (test code = 1252658418) 3.81 10*3/uL 1.88-7.09 IMM GRAN x10^3 (test code = 3943308847) 0.00-0.06 LYMPH x10^3 (test code = 731-0) 1.28 10*3/uL 1.32-3.29 L MONO x10^3 (test code = 742-7) 0.57 10*3/uL 0.33-0.92 EOS x10^3 (test code = 711-2) 0.13 10*3/uL 0.03-0.39 BASO x10^3 (test code = 704-7) 0.03 10*3/uL 0.01-0.07 Lab Interpretation (test code = 66662-2) Abnormal [facility] Center[facility]oll[facility]in [Units/volume] in Serum or Plasma 2024-09-11 00:00:00* Test Item Value Reference Range Interpretation Comme nts FSH (test code = FSH) 79.0 mIU/mL [facility]+ vw [id number] 15:58:45ORDERING PROVIDER: JAQUI NORRIS HISTORY: Pain. TECHNIQUE: 3 views of the left ankle were performed. COMPARISON: Radiograph of the left ankle performed 09/28/2023 FINDINGS/[facility] Center[facility] W Auto Differential panel - Wzivs4160-93-98 00:00:00 * Test Item Value Reference Range [...] code = baso #) 0.1 10 0.0-0.2 [facility] W/AUTO [id number] 07:26:00* Test Item Value Reference Range Interpretation [...] NRBC#) 0.0 K/mm3 0.0-0.1 N CBC W/AUTO [id number] 13:05:00* Test Item Value Reference Range Interpretation [...] REVIEW CONSISTANT WITH AUTO DIFFERENTIAL. COMPREHENSIVE METABOLIC [id number] 11:56:00* Test Item Value Reference Range Interpretation [...] code = ALKP) 217 Unit/L 50-136 H [id number] 11:56:00* Test Item Value Reference Range Interpretation Comme nts PHOSPHOROUS (test code = PHOS) 3.7 MG/DL 2.5-4.9 N [id number] 11:56:00* Test Item Value Reference Range Interpretation Comme nts MAGNESIUM (test code = MAG) 2.0 MG/DL 1.8-2.4 N CBC W/AUTO [id number] 14:33:00* Test Item Value Reference Range Interpretation [...] = NRBC#) 0.0 K/mm3 0.0-0.1 N HCG [id number] 08:36:00* Test Item Value Reference Range Interpretation Comme nts HCG SERUM (test code = HCG) 4 mi-IU/ML 0-6 N COMPREHENSIVE METABOLIC [id number] 04:30:00* Test Item Value Reference Range Interpretation [...] ALKP) 233 Unit/L 50-136 H COMPREHENSIVE METABOLIC [id number] 05:00:00* Test Item Value Reference Range Interpretation [...] ALKP) 277 Unit/L 50-136 H CBC W/AUTO [id number] 04:46:00* Test Item Value Reference Range Interpretation [...] NRBC#) 0.0 K/mm3 0.0-0.1 N CBC W/AUTO [id number] 04:37:00* Test Item Value Reference Range Interpretation [...] NRBC#) 0.0 K/mm3 0.0-0.1 N COMPREHENSIVE METABOLIC [id number] 04:49:00* Test Item Value Reference Range Interpretation [...] = ALKP) 220 Unit/L 50-136 H PROTHROMBIN [id number] 04:19:00* Test Item Value Reference Range Interpretation Comme nts PT PATIENT (test code = PTP) 12.8 [...] Infarction (to prevent recurrent infarct). THROMBOPLASTIN TIME [id number] 04:19:00* Test Item Value Reference Range Interpretation Comme nts THROMBOPLASTIN TIME PARTIAL (test code = PTT) 32.2 SECONDS 26-35 N CBC W/AUTO [id number] 04:12:00* Test Item Value Reference Range Interpretation Comme [...] K/mm3 0.0-0.[address] Abdomen pelvis w [id number] 23:25:16EXAM: CT abdomen pelvis with contrast HISTORY: [...] surgical intervention. T11 superior endplate chronic appearingmild compression.[facility]. Metabolic Panel ([id number])2024-06-29 21:25:16* Test Item Value Reference Range Interpretation Comme nts NA (test code = 2365204204) 132 mmol/L 135-145 L K (test code = 4444224778) 4.4 mmol/L 3.5-5.0 CL (test code = 0169581217) 98 mmol/L 98-108 CO2 TOTAL (test code = 7891510334) 27 mmol/L 23-31 AGAP (test code = 1073982070) 7 2-16 BUN (test code = 3529959491) 28 mg/dL 7-23 H GLUCOSE (test code = 5191175296) 103 mg/dL 70-110 CREATININE (test code = 2160-0) 0.63 mg/dL 0.50-1.04 TOTAL BILI (test code = 3780087158) 0.7 mg/dL 0.1-1.1 CALCIUM (test code = 0236342527) 8.9 mg/dL 8.6-10.6 T PROTEIN (test code = 0046430767) 7.8 g/dL 6.3-8.2 ALBUMIN (test code = 1002981793) 4.1 g/dL 3.5-5.0 ALK PHOS (test code = 9541485541) 284 U/L 34-122 H ALTv (test code = 1742-6) 110 U/L 5-35 H AST(SGOT) (test code = 6947635320) 68 U/L 13-40 H eGFR (test code = 84433-1) 108.9 mL/min/1.73m2 CKD-EPI eGFR (2020). Assuming creatinine has been stable day-to-day for at least three months, the eGFR indicates Category G1 (>= 90 mL/min/1.73 m2) Lab Interpretation (test code = 44019-0) [facility] Test Item Value Reference Range Interpretation Comme nts LIPASE (test code = 0312813445) 122 U/L 0-220 Lab Interpretation (test cod e = 99890-5) Normal [facility] with [id number] 21:11:16* Test Item Value Reference Range Interpretation [...] 33.3 g/dL 31.6-35.1 RDW-SD (test code = 90381-7) 43.7 fL 39.0-49.9 RDW-CV (test code = 788-0) 13.5 % 12.0-15.5 PLT (test code = 777-3) 312 166-358 MPV (test code = 48769-6) 9.6 fL 9.5-12.9 NRBC/100 WBC (test code = 7797879287) 0.0 0.0-10.0 NRBC x10^3 (test code = 1416213084) See_Comment [Automated message] The system which generated this result transmitted reference range: 10*3/?L. The reference range was not used to interpret this result as normal/abnormal. GRAN MAT (NEUT) % (test code = 770-8) 86.1 % IMM GRAN % (test code = 3984702211) 0.40 % LYMPH % (test code = 736-9) 5.2 % MONO % (test code = 5905-5) 7.4 % EOS % (test code = 713-8) 0.6 % BASO % (test code = 706-2) 0.3 % GRAN MAT x10^3(ANC) (test code = 5335130849) 13.44 10*3/uL 1.88-7.09 H IMM GRAN x10^3 (test code = 8733198242) 0.06 10*3/uL 0.00-0.06 LYMPH x10^3 (test code = 731-0) 0.81 10*3/uL 1.32-3.29 L MONO x10^3 (test code = 742-7) 1.15 10*3/uL 0.33-0.92 H EOS x10^3 (test code = 711-2) 0.09 10*3/uL 0.03-0.39 BASO x10^3 (test code = 704-7) 0.05 10*3/uL 0.01-0.07 Lab Interpretation (test code = 91139-2) [facility] Test Item Value Reference Range Interpretation Comme nts SURGICAL (test code = SR) -----RUN DATE: 06/26/24 [facility] PAGE 1 RUN TIME: 1540 Specimen Inquiry RUN USER: INTERFACE -----PATIENT: BRICE DELATORRE LOC: [facility] U #: [id number] AGE/SX: 48/F ROOM: RE06/23/24[facility] DR: Saulo Montenegro MD : 73 BED: DIS: STATUS: [facility]: ----- SPEC #: [id number] RECD: 06/24/24 STATUS: JUNIOR RELynsey #: [id number] GISELE: 06/23/24-5 [facility] [address]: Saulo Montenegro MD ENTERED: 06/24/24 SP TYPE: SURGICAL OTHR DR: ORDERED: [id number], ANATOMIC SPEC, SPECIMEN TRACK PROCEDURES: [id number] (06/26/24-1538) SPECIMEN TRACK (06/24/24-858) TISSUES: A. UTERUS - UTERUS, CERVIX, BILATERAL [...] CONTINUED ON NEXT PAGE -----RUN DATE: 06/26/24 [facility] PAGE 2 RUN TIME: 1540 Specimen Inquiry RUN USER: INTERFACE -----SPEC #: [id number] PATIENT: BRICE DELATORRE #[id number] (Continued) GROSS DESCRIPTION (Continued) A5 additional anterior endomyometriumA6 uterine wall noduleA7 posterior reflectionA8-A10 section of left ovarian cyst A11 left fallopian tube cut surface with entire bisected fimbriated endA12 right fallopian tube cut surface with entire bisected fimbriated end Technical tissue processing and slide preparation performed at [employer],[id number] , [place] [address] MICROSCOPIC DESCRIPTION Microscopic examination is performed and the findings are incorporated into the finaldiagnosis. Please see diagnosis for findings. Signed SIGNATURE ON FILE Dany Quintero X 06/26/24 1540 ----- END OF REPORT URINALYSIS [id number] 14:20:00* Test Item Value Reference Range Interpretation [...] NEGATIVE Urine Specimen Type: Clean CatchHCG SERUM [id number] 14:08:00* Test Item Value Reference Range Interpretation Comme [facility] HCG SERUM QUAL (test code = HCGQL) SERUM NEGATIVE SCREEN NEGATIVE PROTHROMBIN [id number] 13:57:00* Test Item Value Reference Range Interpretation Comme [facility] PT PATIENT (test code = PTP) 10.3 [...] Infarction (to prevent recurrent infarct). THROMBOPLASTIN TIME [id number] 13:57:00* Test Item Value Reference Range Interpretation Comme [facility] THROMBOPLASTIN TIME PARTIAL (test code = PTT) 35.7 SECONDS 26-35 H CBC W/O [id number] 13:51:00* Test Item Value Reference Range Interpretation [...] fL 7.0-10.5 N POCT Urinalysis W Specific [id number] 22:16:00* Test Item Value Reference Range Interpretation [...] U APPEAR (test code = 3267) hazy [facility] Pathology biopsy [id number] 00:00:00Clinical InformationPathologistReport NotesA SourceA Gross DescriptionA DiagnosisB SourceB Gross DescriptionB DiagnosisPrivia MedicalUS OVARY TORSION 2024-03-26 03:31:57EXAM: US OVARY TORSION HISTORY: 48 years-old Female; Provided indication: r/o torsion, L pelvicpain. LMP = not providedPregnancy test = Negative. TECHNIQUE: Transabdominal and transvaginal ultrasound imaging and colorDoppler evaluation of the pelvis was performed. Spectral Doppler evaluationof theovaries was performed. Educational Psychologist images were obtained for therecord. COMPARISON: Same [...] color Doppler. Cul-de-sac: No free fluid is present.[facility]AST 2024-03-26 02:27:24HISTORY: ?LLQ abdominal pain COMPARISON:none TECHNIQUE:CT scan of the abdomen and pelvis performed.Contiguous axial CT imageswere obtained after administration of intravenous contrast. ?CT scan doneaccording to SHARLENE. Technical quality: Technical quality: adequate. FINDINGS: 1 [...] is normal. The bones and soft tissues unremarkable.[facility] METABOLIC PANEL (NA, K, CL, CO2, GLUCOSE, BUN, CREATININE, CA)2024-03-26 01:20:23* Test Item Value Reference Range Interpretation Comme nts NA (test code = 8839420138) 136 mmol/L 135-145 K (test code = 9615915386) 4.0 mmol/L 3.5-5.0 CL (test code = 7379215111) 104 mmol/L 98-108 CO2 TOTAL (test code = 4159074280) 24 mmol/L 23-31 AGAP (test code = 7601792215) 8 2-16 BUN (test code = 6087320388) 18 mg/dL 7-23 GLUCOSE (test code = 3409816061) 92 mg/dL 70-110 CREATININE (test code = 2160-0) 0.72 mg/dL 0.50-1.04 CALCIUM (test code = 4275226413) 8.8 mg/dL 8.6-10.6 eGFR (test code = 54565-4) 102.6 mL/min/1.73m2 CKD-EPI eGFR (20 21). Assuming creatinine has been stable day-to-day for at least three months, the eGFR indicates Category G1 (>= 90 mL/min/1.73 m2) [facility] WITH [id number] 01:06:53* Test Item Value Reference Range Interpretation [...] 32.9 g/dL 31.6-35.1 RDW-SD (test code = 66440-4) 42.9 fL 39.0-49.9 RDW-CV (test code = 788-0) 12.3 % 12.0-15.5 PLT (test code = 777-3) 303 166-358 MPV (test code = 55165-2) 9.7 fL 9.5-12.9 NRBC/100 WBC (test code = 7181969538) 0.0 0.0-10.0 NRBC x10^3 (test code = 8740729956) See_Comment [Automated me ssage] The system which generated this result transmitted reference range: 10*3/?L. The reference range was not used to interpret this result as normal/abnormal. GRAN MAT (NEUT) % (test code = 770-8) 65.4 % IMM GRAN % (test code = 6226827911) 0.30 % LYMPH % (test code = 736-9) 23.5 % MONO % (test code = 5905-5) 8.0 % EOS % (test code = 713-8) 1.9 % BASO % (test code = 706-2) 0.9 % GRAN MAT x10^3(ANC) (test code = 1900809455) 4.50 10*3/uL 1.88-7.09 IMM GRAN x10^3 (test code = 2925631966) 0.00-0.06 LYMPH x10^3 (test code = 731-0) 1.62 10*3/uL 1.32-3.29 MONO x10^3 (test code = 742-7) 0.55 10*3/uL 0.33-0.92 EOS x10^3 (test code = 711-2) 0.13 10*3/uL 0.03-0.39 BASO x10^3 (test code = 704-7) 0.06 10*3/uL 0.01-0.07 [facility]PO[facility] [id number] 00:45:00* Test Item Value Reference Range Interpretation Comme nts POCT PREG (test code = 1605) Negative On board controls acceptable with C Line (test code = 3574) Yes POCT PREG LOT # (test code = 3575) [id number] POCT PREG TEST DATE ( test code = 3576) 03-08-2025 Lab Interpretation (test cod e = 46395-0) [facility] [id number] 15:35:20* Test Item Value Reference Range Interpretation Comme nts HCG (test code = HCG) negative [facility] Pathology biopsy [id number] 00:00:00Clinical InformationPathologistA SourceA Gross DescriptionA DiagnosisA CommentB SourceB Gross DescriptionB DiagnosisB CommentPrivia Medicalpregnancy test, urine 2024-03-06 10:09:00* Test Item Value Reference Range Interpretation Comme nts HCG (test code = HCG) negative [facility]pregnancy test, vojxm0773-88-98 16:02:00* Test Item Value Reference Range Interpretation Comme nts HCG (test code = HCG) negative [facility] by Automated [id number] 00:00:00* Test Item Value Reference Range Interpretation [...] 0.0-0.2 Privia MedicalThyrotropin [Units/volume] in Serum or [id number] 00:00:00* Test Item Value Reference Range Interpretation Comme nts TSH (test code = TSH) 1.640 uIU/mL 0.500-4.530 [facility] MedicalFollitropin [Units/volume] in Serum or [id number] 00:00:00* Test Item Value Reference Range Interpretation Comme nts FSH (test code = FSH) 6.2 mIU/mL [facility] MedicalChlamydia trachomatis and Neisseria gonorrhoeae rRNA panel - Specimen by CY with probe [id number] 00:00:00* Test Item Value Reference Range Interpretation Comme nts aptima combo 2 swab (CT) (te st code = aptima combo 2 swab (CT)) CT neg negative aptima combo 2 swab (GC) (te st code = aptima combo 2 swab (GC)) GC neg negative Priv[facility] Medicalpap, LB + [id number] 00:00:00* Test Item Value Reference Range Interpretation [...] detected A Privia MedicalCT ABDOMEN PELVIS W [id number] 02:07:05HS:Y Indication: Flank pain, kidney stone suspected [...] soft tissue: No acute osseous abnormality is noted.[facility] CenterComplete Metabolic Panel 2024-01-19 01:56:55* Test Item Value Reference Range Interpretation Comme nts NA (test code = 7182710457) 138 mmol/L 135-145 K (test code = 7140541146) 4.2 mmol/L 3.5-5.0 CL (test code = 6507912082) 103 mmol/L 98-108 CO2 TOTAL (test code = 8136242705) 26 mmol/L 23-31 AGAP (test code = 6314793944) 9 2-16 BUN (test code = 7281902328) 21 mg/dL 7-23 GLUCOSE (test code = 5758177182) 94 mg/dL 70-110 CREATININE (test code = 2160-0) 0.82 mg/dL 0.50-1.04 TOTAL BILI (test code = 8169603236) 1.0 mg/dL 0.1-1.1 CALCIUM (test code = 4575454049) 9.2 mg/dL 8.6-10.6 T PROTEIN (test code = 0385181285) 8.8 g/dL 6.3-8.2 H ALBUMIN (test code = 9769552912) 4.5 g/dL 3.5-5.0 ALK PHOS (test code = 3069374785) 72 U/L 34-122 ALTv (test code = 1742-6) 122 U/L 5-35 H AST(SGOT) (test code = 8800054633) 77 U/L 13-40 H eGFR (test code = 34636-2) 87.8 mL/min/1.73m2 CKD-EPI eGFR (2020). Assuming creatinine has been stable day-to-day for at least three months, the eGFR indicates Category G2 (60 - 89 mL/min/1.73 m2) Lab Interpretation (test code = 91225-3) Abnormal [facility] CenterLipase, [id number] 01:56:55* Test Item Value Reference Range Interpretation Comme nts LIPASE (test code = 2498231690) 328 U/L 0-220 H Lab Interpretation (test cod e = 35402-1) Abnormal [facility] CenterCBC with Fwklztjkrgev6706-67-08 01:47:54* Test Item Value Reference Range Interpretation [...] 33.3 g/dL 31.6-35.1 RDW-SD (test code = 83764-0) 44.8 fL 39.0-49.9 RDW-CV (test code = 788-0) 13.2 % 12.0-15.5 PLT (test code = 777-3) 296 166-358 MPV (test code = 14006-0) 9.3 fL 9.5-12.9 L NRBC/100 WBC (test code = 8318319886) 0.0 0.0-10.0 NRBC x10^3 (test code = 6912333636) See_Comment [Automated messa ge] The system which generated this result transmitted reference range: 10*3/?L. The reference range was not used to interpret this result as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 ROOM/BED: [place] [address] : 74 AGE: 48 SEX: F ATTEND: Levon Hurley MD ADM AUTHOR: Levon Hurley MD REPT SERVICE DT/TIME: 07/05/24 1022 * ALL edits or amendments must be made on the electronic/computer document * Subjective Chief complaint: Abdominal Pain is better HPI: 48-year-old female, postop day 6 status post laparoscopic hysterectomy who was transferred from [facility] for a postoperative vaginal cuff abscess. The patient complains of pelvic pain and bilateral lower abdominal pain associated with fever, 101.3 Fahrenheit at home. She was seen at [facility] emergency department and had a CT which showed a large lobulated vaginal cuff abscess. Dr. Puckett was consulted and recommended transfer to [facility] for further management Objective General VS/I O: [...] (Auto) (20.5 - 51.1 %) 13.0 L Freestone % (Auto) (1.7 - 9.3 %) 7.4 Eos % (Auto) (0.0 - 6.0 %) 1.7 Baso % (Auto) (0.0 - 2.0 %) 0.4 Neut # (Auto) (1.8 - 7.6 K/mm3) 7.9 H Lymph # (Auto) (0.6 - 3.2 K/mm3) 1.3 Freestone # (Auto) (0.3 - 1.1 K/mm3) 0.8 [...] demonstrates vaginal cuff dehiscence. Impression By: [email or web address] Luz Rosario M.D. Free [...] Started on IV antibiotic Appreciate help from CUSTOMER SERVICER Consult IR for aspiration Will obtain cultures Monitor CBC daily GI/DVT prophylaxis Advanced directive full code IR consult appreciated Status post aspiration Awaiting cultures Monitor closely Discussed with Dr. Montenegro Awaiting cultures ID consulted IV antibiotic Culture negative so far Monitor closely CT findings noted IR consult and s/p aspiration again Discussed with CUSTOMER SERVICER Pain control Monitor closely at 1023 RPT #: [id number] END OF REPORT [facility] 2024-07-04 13:34:00 [facility] ([facility]) Post Anesthesia Evaluation REPORT#:[id number] REPORT STATUS: Signed REPORT INITIALIZATION DATE:07/04/24 TIME:1333 PATIENT: BRICE DELATORRE UNIT #: [id number] ROOM/BED: [place] [address] : 74 AGE: 48 SEX: F ATTEND: [...] O2 Delivery High flow nasal cannula 07/04 1310 O2 Flow Rate 2 07/04 1310 Temp 36.7 07/04 1310 Pulse 70 07/04 1310 Resp 18 07/04 1310 B/P Mean 87.7 07/04 0411 Cardiovascular: CV system stable, vital signs stable Respiratory/Airway: respiratory system stable, maintains without support Pain: adequately controlled Hydration: adequate Temp status: normothermic Presence of N/V: no Anesthesia complications: no at 1335 RPT #: [id number] END OF REPORT [facility] 2024-07-04 11:13:00 [facility] Hospitalist Progress Note REPORT#:[id number] REPORT STATUS: Signed REPORT INITIALIZATION DATE:07/04/24 TIME:111 PATIENT: BRICE DELATORRE UNIT #: [id number] ROOM/BED: [place] [address] : 74 AGE: 48 SEX: F ATTEND: Levon Hurley MD ADM AUTHOR: Levon Hurley MD REPT SERVICE DT/TIME: 07/04/24 1113 * ALL edits or amendments must be made on the electronic/computer document * Subjective Chief complaint: Abdominal Pain is better HPI: 48-year-old female, postop day 6 status post laparoscopic hysterectomy who was transferred from [facility] for a postoperative vaginal cuff abscess. The patient complains of pelvic pain and bilateral lower abdominal pain associated with fever, 101.3 Fahrenheit at home. She was seen at [facility] emergency department and had a CT which showed a large lobulated vaginal cuff abscess. Dr. Puckett was consulted and recommended transfer to [facility] for further management Objective General VS/I O: [...] 2.2 RATIO) 0.5 L Laboratory Tests 07/04 08 Miscellaneous Maternal Serum HCG (0 - 6 mi-IU/ML) 4 Radiology data: Recent Impressions: CAT SCAN - CT ABD PELVIS W/CONT 07/04 0840 Report Impression - Status: SIGNED Entered: 07/04/2024 5605 IMPRESSION: Significant interval improvement of the vaginal [...] demonstrates vaginal cuff dehiscence. Impression By: [email or web address] Luz Rosario M.D. Free [...] Started on IV antibiotic Appreciate help from CUSTOMER SERVICER Consult IR for aspiration Will obtain cultures Monitor CBC daily GI/DVT prophylaxis Advanced directive full code IR consult appreciated Status post aspiration Awaiting cultures Monitor closely Discussed with Dr. Montenegro Awaiting cultures ID consulted IV antibiotic Culture negative so far Monitor closely CT findings noted Will get a repeat IR consult and possible aspiration again Discussed with CUSTOMER SERVICER Pain control Monitor closely at 1344 RPT #: [id number] END OF REPORT [facility] 2024-07-03 12:19:00 [facility] ([facility]) Hospitalist Progress Note REPORT#:[id number] REPORT STATUS: Signed REPORT INITIALIZATION DATE:07/03/24 TIME:1219 PATIENT: BRICE DELATORRE UNIT #: [id number] ROOM/BED: [place] [address] : 74 AGE: 48 SEX: F ATTEND: Levon Hurley MD ADM AUTHOR: Levon Hurley MD REPT SERVICE DT/TIME: 07/03/24 1219 * ALL edits or amendments must be made on the electronic/computer document * Subjective Chief complaint: Abdominal Pain is better HPI: 48-year-old female, postop day 6 status post laparoscopic hysterectomy who was transferred from [facility] for a postoperative vaginal cuff abscess. The patient complains of pelvic pain and bilateral lower abdominal pain associated with fever, 101.3 Fahrenheit at home. She was seen at [facility] emergency department and had a CT which showed a large lobulated vaginal cuff abscess. Dr. Puckett was consulted and recommended transfer to [facility] for further management Objective General VS/I O: [...] completed: 07/02/24 Results Findings/Data: Laboratory Tests 07/03 433 Chemistry Sodium (136 - 145 mmol/L) 138 [...] 2.2 RATIO) 0.5 L Laboratory Tests 07/03 043 Hematology WBC (3.5 - 11.0 K/mm3) 8.7 [...] (Auto) (20.5 - 51.1 %) 13.9 L Freestone % (Auto) (1.7 - 9.3 %) 10.0 H Eos % (Auto) (0.0 - 6.0 %) 1.7 Baso % (Auto) (0.0 - 2.0 %) 0.2 Neut # (Auto) (1.8 - 7.6 K/mm3) 6.4 Lymph # (Auto) (0.6 - 3.2 K/mm3) 1.2 Freestone # (Auto) (0.3 - 1.1 K/mm3) 0.9 [...] Started on IV antibiotic Appreciate help from CUSTOMER SERVICER Consult IR for aspiration Will obtain cultures Monitor CBC daily GI/DVT prophylaxis Advanced directive full code IR consult appreciated Status post aspiration Awaiting cultures Monitor closely Discussed with Dr. Montenegro Awaiting cultures ID consulted IV antibiotic Culture negative so far Monitor closely Possible DC in AM at 1222 RPT #: [id number] END OF REPORT [facility] 2024-07-03 11:03:00 [facility] Infect Disease Consult Note REPORT#:[id number] REPORT STATUS: Signed REPORT INITIALIZATION DATE:07/03/24 TIME:110 PATIENT: BRICE DELATORRE UNIT #: [id number] ROOM/BED: S206-1 : 74 AGE: 48 SEX: F ATTEND: Levon Hurley MD ADM AUTHOR: Phillip Palencia MD REPT SERVICE DT/TIME: 07/03/24 1103 * ALL edits or amendments must be made on the electronic/computer document * History of Present Illness Chief complaint: Pelvic abscess HPI: 48-year-old female, s/p recent laparoscopic hysterectomy who was transferred from [facility] for a vaginal abscess. The patient developed worsening pelvic pain associated with fever. She was seen at [facility] ED and CT showed a large lobulated [...] clubbing, no cyanosis Musculoskeletal: no joint swelling Neuro/PUBLIC IMPROVEMENT INSPECTOR: alert, oriented X 3, normal speech Skin: [...] function. 6. Follow LFTs. 7. F/u with COILED TUBING OPERATOR. 8. Plan discussed with pt. Thank you for this consult. at 1333 RPT #: [id number] END OF REPORT [facility] 2024-07-02 12:48:00 [facility] Hospitalist Progress Note REPORT#:[id number] REPORT STATUS: Signed REPORT INITIALIZATION DATE:07/02/24 TIME:1247 PATIENT: BRICE DELATORRE UNIT #: [id number] ROOM/BED: [place] [address] : 74 AGE: 48 SEX: F ATTEND: Levon Hurley MD ADM AUTHOR: Levon Hurley MD REPT SERVICE DT/TIME: 07/02/24 1248 * ALL edits or amendments must be made on the electronic/computer document * Subjective Chief complaint: Abdominal Pain HPI: 48-year-old female, postop day 6 status post laparoscopic hysterectomy who was transferred from [facility] for a postoperative vaginal cuff abscess. The patient complains of pelvic pain and bilateral lower abdominal pain associated with fever, 101.3 Fahrenheit at home. She was seen at [facility] emergency department and had a CT which showed a large lobulated vaginal cuff abscess. Dr. Puckett was consulted and recommended transfer to [facility] for further management Objective General VS/I O: [...] Started on IV antibiotic Appreciate help from CUSTOMER SERVICER Consult IR for aspiration Will obtain cultures Monitor CBC daily GI/DVT prophylaxis Advanced directive full code IR consult appreciated Status post aspiration Awaiting cultures Monitor closely Discussed with Dr. Montenegro Awaiting cultures at 1249 RPT #: [id number] END OF REPORT [facility] 2024-07-01 10:03:00 [facility] ([facility] Hospitalist Progress Note REPORT#:[id number] REPORT STATUS: Signed REPORT INITIALIZATION DATE:07/01/24 TIME:1003 PATIENT: BRICE DELATORRE UNIT #: [id number] ROOM/BED: [place] [address] : 74 AGE: 48 SEX: F ATTEND: Levon Hurley MD ADM AUTHOR: Levon Hurley MD REPT SERVICE DT/TIME: 07/01/24 1003 * ALL edits or amendments must be made on the electronic/computer document * Subjective Chief complaint: Abdominal Pain HPI: 48-year-old female, postop day 6 status post laparoscopic hysterectomy who was transferred from [facility] for a postoperative vaginal cuff abscess. The patient complains of pelvic pain and bilateral lower abdominal pain associated with fever, 101.3 Fahrenheit at home. She was seen at [facility] emergency department and had a CT which showed a large lobulated vaginal cuff abscess. Dr. Puckett was consulted and recommended transfer to [facility] for further management Objective General VS/I O: [...] Report Impression - Status: SIGNED Entered: 07/01/2024 6945 IMPRESSION: Pelvic abscess drainage catheter placement under [...] Started on IV antibiotic Appreciate help from CUSTOMER SERVICER Consult IR for aspiration Will obtain cultures Monitor CBC daily GI/DVT prophylaxis Advanced directive full code IR consult appreciated Status post aspiration Awaiting cultures Monitor closely at 1248 RPT #: [id number] END OF REPORT [facility] 2024-06-30 19:19:00 [id number] [facility] [address] [place] [address] PATIENT NAME: BRICE DELATORRE ADMIT DATE: 06/29/24 ACCOUNT NO: [id number] ROOM NO: L.S206 AGE: 49 REPORT TYPE: CONSULTATION SEX: F ADMITTING PHYSICIAN: Levon Hurley MD ATTENDING PHYSICIAN: Levon Hurley MD CONSULTATION DATE: 06/30/2024 REASON FOR CONSULTATION: A 1-week postop with a pelvic collection suspicious for a pelvic abscess, leukocytosis, transferred from [facility] in [place] for these diagnoses. HISTORY OF PRESENT ILLNESS: The patient is a 48-year-old postop day #8 today with complaints of pelvic pain and a fever of 102 that took her to the emergency room yesterday. The patient had reported nausea and was called in [facility] on Sunday at the close of office [...] Sunday, she went to the hospital at [place], and was diagnosed with a pelvic collection on CT scan and a white count of 15.6. After I received a call from the transfer center at [facility], I was connected with the ER attending at [facility]. We discussed the patient's case and I requested a transfer to [facility] in order for her to continue under [...] hours since yesterday, which was started at [facility] and continued to clinically improve with [...] Dictated: 06/30/2024 19:19:54 Date Transcribed: 06/30/2024 23:07:02 CONNIE Receipt ID: [id number] Authenticated by Saulo Montenegro MD On 2024 06:40:54 PM at 0640 PATIENT NAME: BRICE DELATORRE [facility] 2024-06-30 10:42:00 [facility] Hospitalist Progress Note REPORT#:[id number] REPORT STATUS: Signed REPORT INITIALIZATION DATE:06/30/24 TIME:1042 PATIENT: BRICE DELATORRE UNIT #: [id number] ROOM/BED: [place] [address] : 73 AGE: 48 SEX: F ATTEND: Levon Hurley MD ADM AUTHOR: Levon Hurley MD REPT SERVICE DT/TIME: 06/30/24 1042 * ALL edits or amendments must be made on the electronic/computer document * Subjective Chief complaint: Abdominal Pain HPI: 48-year-old female, postop day 6 status post laparoscopic hysterectomy who was transferred from [facility] for a postoperative vaginal cuff abscess. The patient complains of pelvic pain and bilateral lower abdominal pain associated with fever, 101.3 Fahrenheit at home. She was seen at [facility] emergency department and had a CT which showed a large lobulated vaginal cuff abscess. Dr. Puckett was consulted and recommended transfer to [facility] for further management Objective General VS/I O: Vital Signs: Date Time Temp Pulse Resp B/P B/P Pulse O2 O2 Flow FiO2 Mean Ox Delivery Rate 06/30 0751 97.7 95 16 114/79 90.8 96 Room air 06/30 0430 93 95 06/30 0429 98.2 92 16 103/68 79.7 92 06/29 2310 98.2 82 18 115/77 89 95 06/295 89 118/70 88 92 06/29 204 90 108/78 90 92 06/29 2036 87 98/75 84 94 06/29 2017 81 [...] Assessment completed: Results Findings/Data: Laboratory Tests 06/30/24 0357: [Embedded Image Not Available] 06/30/24 035: [Embedded [...] (0.8 - 1.2 INR Unit) 1.16 PTT ([place]) (26 - 35 SECONDS) 32.2 PT Patient/Control [...] (Auto) (20.5 - 51.1 %) 9.3 L [place] % (Auto) (1.7 - 9.3 %) 6.7 Eos % (Auto) (0.0 - 6.0 %) 1.0 Baso % (Auto) (0.0 - 2.0 %) 0.3 Neut # (Auto) (1.8 - 7.6 K/mm3) 11.2 H Lymph # (Auto) (0.6 - 3.2 K/mm3) 1.3 Freestone # (Auto) (0.3 - 1.1 K/mm3) 0.9 [...] Started on IV antibiotic Appreciate help from CUSTOMER SERVICER Consult IR for aspiration Will obtain cultures Monitor CBC daily GI/DVT prophylaxis Advanced directive full code at 1114 RPT #: [id number] END OF REPORT [facility] 2024-06-29 21:46:00 [facility] ([facility]) Hospitalist History Physical REPORT#:[id number] REPORT STATUS: Signed REPORT INITIALIZATION DATE:06/29/24 TIME:2145 PATIENT: BRICE DELATORRE UNIT #: [id number] ROOM[address]BED: [address] : [birth year] AGE: 48 SEX: F ATTEND: Levon Hurley MD ADM AUTHOR: Levon Hurley MD REPT SERVICE DT/TIME: 06/29/242145 * ALL edits or amendments must be made on the electronic/computer document * History of Present Illness HPI Chief complaint: Abdominal Pain HPI: 48-year-old female, with postop day 6 status post laparoscopic hysterectomy who was transferred from [facility] for a postoperative vaginal cuff abscess. The patient complains of pelvic pain and bilateral lower abdominal pain associated with fever, 101.3 Fahrenheit at home. She was seen at [facility] emergency department and had a CT which showed a large lobulated vaginal cuff abscess. Dr. Puckett was consulted and recommended transfer to [facility] for further management Patient was assessed in [...] Started on IV antibiotic Appreciate help from CUSTOMER SERVICER Consult IR for aspiration Will obtain cultures Monitor CBC daily GI/DVT prophylaxis Advanced directive full code at 1116 RPT #: [id number] END OF REPORT [facility] 2024-06-29 19:33:00 [facility] ([facility]) EMERGENCY PROVIDER REPORT REPORT#:[id number] REPORT STATUS: Signed DATE:06/29/24 TIME:1932 PATIENT: BRICE DELATORRE UNIT #: [id number] ROOM/BED: [facility]06-1 : 73 AGE: 48 SEX: F PCP PHYS: Saulo Montenegro MD SERVICE AUTHOR: Aracelis Barroso MD REP SRV REP SRV TM: 1932 * ALL edits or amendments must be made on the electronic/computer document * HPI-General Illness General Initial Greet Date/Time 06/29/241927 Presentation Chief Complaint Abdominal pain Free Text HPI Notes Free Text HPI Notes 48-year-old female, postop day 6 status post laparoscopic hysterectomy who was transferred from [facility] for a postoperative vaginal cuff abscess. The patient complains of pelvic pain and bilateral lower abdominal pain associated with fever, 101.3 Fahrenheit at home. She was seen at [facility] emergency department and had a CT which showed a large lobulated vaginal cuff abscess. Dr. Puckett was consulted and recommended transfer to [facility] for further management External records reviewed from transferring hospital [facility]: Patient received morphine 4 mg x 2 [...] post laparoscopic hysterectomy who was transferred from [facility] for a postoperative vaginal cuff abscess I spoke with the patient's compensation intern, Dr. Montenegro, who recommended admission for IR [...] Hospitalize Hosp Physician Name Levon Hurley MD [facility] Physician Hospitalist Request Time 1957 Request Date 06/29/24 )( Accepts Hospitalization Yes )( Reason for Hospitalization drainage of vaginal cuff abscess, sepsis )( Accepted Time 1999 )( Accepted Date 06/29/24 Call Information will see patient at 0035 RPT #: [id number] END OF REPORT [facility] 2024-06-29 18:36:22 Patient transferred to [facility] ED for diagnosis of post surgical abscess Patient agrees to transfer/admit plan and verbalized understanding of plan of care, family aware of plan Patient awake alert, oriented, resp reg unlabored, skin w/d PIV patent, no s/s infiltration noted, No adverse reaction to medications given while in ED. Report given to [facility] personnel Report given to physician at [facility] ED [employer] WORK[employer] Adrian Peñaloza RN [facility] 2024-06-29 14:14:53 Pt had hysterectomy a week ago with Dr Montenegro. This morning pt had fever, pelvic pressure. She took codeine, 600mg ibuprofen and is afebrile on arrival to ED. Appears anxious. [employer] UTILITY WORKER Nika Garcia RN [facility] 2024-06-29 14:04:00 [facility] Emergency Department Note Patient Name: Brice Delatorre Date of : 1975 48 year old female Treatment Room: [facility] ED [facility] Primary Care Physician: Darlyn Molina Patient Escorted [...] pain following recent hysterectomy (on Sunday06/23/24 in [place]). Patient reports pain since the surgery but [...] 0.01 - 0.07 10*3/uL COMP. METABOLIC PANEL (59490) - Abnormal NA 132 (*) 135 - [...] contrast Cbc with Diff Comp. Metabolic Panel (94143) Lipase Orders Placed This Encounter Medications morpHINE (4 mg/mL) injection 4 mg ondansetron (ZOFRAN (PF)) injection 4 mg iopamidol (ISOVUE 370-500 mL) injection 85 mL morpHINE (4 mg/mL) injection 4 mg ondansetron (ZOFRAN (PF)) injection 4 mg First Provider Eval: ED Events Date/Time Event User Comments 06/29/241421 Medical Screening Begins YULY SAUCEDO MD -- 06/29/24 142 First Provider Evaluation YULY SAUCEDO MD -- ED COURSE Diagnosis/Impression as of 06/29/24 142 Abdominal pain, unspecified abdominal location Procedures: Procedures MDM: Medical Decision Making Brice Delatorre is a 48 year-old female presenting with abdominal pain following recent hysterectomy on 06/23/24. Patient's physician is Dr. Montenegro in [place] at [facility] ([address] [facility]). Radiology called to inform that CT abdomen/pelvis showed pelvic wall abscess. Patient initiated on zosyn. Consulted city tax auditor, who reviewed imaging. Request made to have patient transferred to facility where surgery was done so that she can be treated there. I spoke with patient and patient also wanting to be transferred to be treated.Transfer request made and spoke with Dr. Montenegro who accepted the patient for transfer. Plan for transfer to [facility] for further care and management by physician [...] with meals as needed for Alternate with [place] for pain scale 1-3. ONDANSETRON 4 MG [...] Electronically signed by: Yuly Saucedo MD 06/29/241739 [facility] 2024-06-23 19:15:00 [facility] ([facility] Brief Op Note REPORT#:[id number] REPORT STATUS: Signed REPORT INITIALIZATION DATE:06/23/24 TIME:1914 PATIENT: BRICE DELATORRE UNIT #: [id number] ROOM/BED: : 73 AGE: 48 SEX: F ATTEND: Saulo Montenegro MD ADM AUTHOR: Saulo Montenegro MD REPT SERVICE DT/TIME: 06/23/241914 * ALL edits or amendments must be made on the electronic/computer document * Op/Inv Proc Note - Brief Pre-procedure diagnosis: menorrhagia, CIN2, Pelvic pain Post-procedure diagnosis: same as pre procedure dx, left ovarian cyst Procedures performed: RTLH BS, Left oophorectomy, right ovariopexy Primary Surgeon: amber Retail Service Representative(s): angela peter Anesthesia: general anesthesia Findings: minimal endo, holland master sinus in para rectal spaces, right ovariopexy Complications: none Estimated blood loss in ml's: 50 Specimens removed/altered: left ovary with cyst, jonathan tubes and uterus Urine output: 100 Approach: laparoscopic, leon Wound class: clean/contaminated Disposition: plan to D/C home Counts: Sponge count: correct Instrument count: correct Needle count: correct at 1918 RPT #: [id number] END OF REPORT [facility] 2024-06-23 19:04:00 [facility] ([facility]) Brief Op Note REPORT#:[id number] REPORT STATUS: Signed REPORT INITIALIZATION DATE:06/23/24 TIME:1903 PATIENT: BRICE DELATORRE UNIT #: [id number] ROOM/BED: : 73 AGE: 48 SEX: F [...] rectosigmoid by Dr Mcdaniel) Primary Surgeon: amber Retail Service Representative(s): angela Peter and Harry Valle Anesthesia: general [...] must be discarded at 1915 RPT #: [id number] END OF REPORT [facility] 2024-06-23 14:43:00 [id number] [facility] [address] [place] [address] PATIENT NAME: BRICE DELATORRE ADMIT DATE: 06/23/24 ACCOUNT NO: [id number] ROOM NO: AGE: 49 REPORT TYPE: OPERATIVE [...] and right ovariopexy. SURGEON: Saulo Montenegro MD COUNTY AGRICULTURAL AGENT: Angela Peter. ANESTHESIA: General endotracheal. ESTIMATED BLOOD [...] and 2 simple angle sutures and three gvcglf-gi-qewxm in the middle, and then 2-0 V-Loc [...] was grasped single tooth tenaculum, dilated to 16-American. A 3.5 cm cervical cup was introduced [...] and handed over for retrieval by my facilities maintenance assistant. Anterior and posterior peritoneal flaps were [...] Vicryl suture at both ends, then three mnxgdz-pp-bqrgr in the middle using full thickness closure [...] Date Transcribed: 06/23/2024 20:29:57 HORACE/TOBY Receipt ID: [id number] Authenticated by Saulo Montenegro MD On 2024 06:40:07 PM at 0640 PATIENT NAME: BRICE DELATORRE [facility] 2024-06-23 14:32:00 [facility] ([facility]) Post Anesthesia Evaluation REPORT#:[id number] REPORT STATUS: Signed REPORT INITIALIZATION DATE:06/23/24 TIME:1431 PATIENT: BRICE DELATORRE UNIT #: [id number] ROOM/BED: : 73 AGE: 48 SEX: F ATTEND: Saulo Montenegro MD ADM AUTHOR: Vamsi Roper MD REPT SERVICE DT/TIME: 06/23/24 1432 * [...] Anesthesia complications: no at 1433 RPT #: [id number] END OF REPORT [facility] 2024-05-30 10:32:43 Called patient to let them know they will need to come into clinic and sign a medical release form to have medical records sent to Paresh Curiel NP. Patient stated he will be in today. NE Lopez [facility] 2024-05-30 09:25:04 Please facilitate request for xrays from [facility]. Thank You NE Cooper RN [facility] 2024-05-26 14:50:30 Brice Delatorre is a 48 year old female Alba with [facility] called stating that pt states that she got x-ray done at [facility] shortly after visit (pt did not provide specific date). She states that clinic is needing to request records from [facility]. Please advise. NE Odom [facility] 2024-05-26 14:26:20 Spoke with Alba with [facility] and notified her that the patient has not had the chest Xray done and can not be cleared until completed. Alba stated that she would notifiy the patient. NE Cooper RN [facility] 2024-05-23 16:20:50 Attempt to contact [facility] to inform them pt has not been cleared. Chest x ray must be completed. NE Braswell MA [facility] 2024-05-23 15:54:30 Chest x ray is part of the work up Pt smokes so its important its done [facility] 2024-05-23 15:40:38 Please advise. Chest x ray still not completed. H[employer]ILITY WORKER Florence Braswell MA [facility] 2024-05-22 10:55:48 Brice Delatorre is a 48 year old female Alba with [facility] called to follow up on surgery clearance.Pt surgery is 06/23/2024. Please advise. NE Odom [facility] 2024-04-30 09:55:00 Regarding: weaness in arms and legs, shaky, shortness of breath, upon taking antibiotic x 04/28 ----- Message from Patient Rn Testing sent at 04/30/2024 9:53 AM [employer]ILITY WORKER ----- Weakness in arms and legs, shaky, shortness of breath, started upon taking antibiotic (sulfamethoxazole-trimethop rim) (04/28) [employer] UTILITY WORKER Sherri Hall RN [facility] 2024-04-30 09:55:00 Adult Triage Assessment Last Clinic [...] AND [3] present now Protocols used: Neurologic Vukfgmi-JWWYD-OO [facility] 2024-04-30 09:55:00 Have her stop bactrium will change antibiotics. The culture report is not yet in . Er precautions [facility] 2024-04-30 09:55:00 Addended by: PARESH CURIEL on: 04/30/2024 05:03 PM Modules accepted: Orders [facility] 2024-04-30 09:55:00 Notified patient that Paresh Curiel sent in new prescription and to discontinue the bactrim. ER precautions given for worsening of symptoms. Patient verbalizes understanding and states symptoms penny already getting a lot better. 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 Placed in Providers box. NE Jennings [facility] 2024-04-15 10:00:56 Left voicemail for Alba. This patient is not a established in our office. NE Diop MA [facility] 2024-04-15 09:50:42 Alba russell/ Dr. Monte Office states they faxed a medical clearance to the office on 2023. The pt is needing medical clearance for a hysterectomy. Alba Info: CB#---[phone]/ OPT: 2 FAX#---[phone] Please Advise. NE Ross [facility] 2024-04-02 18:25:30 Patient dc home. Follow up with pcp. T [facility] 2024-04-02 13:16:14 Patient requesting to be swabbed for flu and covid. She has been sick x 2 days with nausea, headache, and diarrhea. Mani Moss RN [facility] 2024-03-25 23:05:22 Pt given printed and verbal [...] in no apparent distress, Scot Vargas RN [facility] 2024-03-25 19:19:09 Pt presents to ED with c/o steady lower left abdominal pain. Pt rates it as 9/10. Pt also c/o 3 weeks of vaginal bleeding. Pt had hysteroscopy last and has continued to have vaginal bleeding. Pt did not notify ob/gym of bleeding. Pt states she is bleeding like a normal menstrual cycle but blood is dark. 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 Printed and verbal instructions reviewed with and given to patient. Prescriptions given x 2. Patient verbalized understanding of teaching, medication administration, and recommended follow-up. Denies questions or concerns at this time. Pt ambulatory at discharge. Appears in no apparent distress. No ataxia noted. Accompanied by self. Christine Ventura RN [facility] 2023-12-18 10:30:23 Patient arrived ambulatory c/o of left sided flank pain that started yesterday morning. Went to PCP and got medicine which hasn't helped. Diann Lovell RN [facility] 2023-09-28 22:44:52 Pt dc'd home ambulatory with crutches. Pt v/u of dc instructions, RICE, and follow up with pcp as needed. 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 Reports pain 10/10 on both sides of ankle and down the left side of foot to toes. Yara Atkinson RN [facility] 2023-08-04 01:35:00 Dc instructions and prescription reviewed with pt by Dr Montilla. Verbalized understanding. No reaction to meds noted or report. Gauze dressing to iv site. Aox4, rr even and unlabored on ra, skin warm and dry. Ambulatory with steady gait with all belongings accompanied by spouse to lobby. [facility] Richmond Sandoval RN [facility] 2023-08-04 01:19:50 Dr Montilla at bedside [facility] 2023-08-04 01:09:16 Pt resting on stretcher sleeping with spouse at bedside. RR even and unlabored on ra, skin warm and dry. No distress observed. [facility] 2023-08-04 00:11:54 Pt reports not receiving ordered meds despite being pulled by previous nurse. Overrided and given by this RN per Dr Montilla [facility] 2023-08-03 22:55:39 Pt resting on stretcher. Aox4, rr even and unlabored on ra, skin warm and dry. Reporting abdominal pain and discomfort. No distress observed. IV attempts x3 in triage. Pt reports she is always a difficult stick d/t prior history. US guided IV requested [facility] 2023-08-03 20:35:54 Patient to Ultra sound at this time. Patient is a very hard stick. Not able to start PIV. Will have to be US guided when patient returns. 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 Patient to US, NAD noted. Patient remains without IV access. Additional PIV access initiation attempts when patient returns from imaging. NE Trinh RN [facility] 2023-08-03 20:16:28 Dr. Montilla at bedside. [facility] 2023-08-03 19:37:23 Brice Delatorre is a 48 year old female presents to ed ambulatory with complaint of abd pain over last couple of weeks and pain has continued. Patient reports vomits everyday, has had diarrhea for 2 months. Patient reports she has been told that she has cyst on her ovaries. Patient reports pain and nausea is constant 24/. Patient denies taking medication for pain. Patient reports vomiting once today, yesterday 3 times. Patient reports at least once a day. Patient reports was given ibuprofen for pain, didn't help then gave her something else and it didn't help either. [facility] No Felix RN [facility] 2023-06-28 01:50:05 Pt given printed and verbal [...] in no apparent distress NE Garcia RN [facility] 2023-06-28 01:22:24 Waiting for IV fluids to infuse. 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 She states that she was shaking. Pt was diagnosed with ovarian cyst x 1 wk ago at this facility. Pt denies vaginal bleeding. PMHx: see chart Awake, alert, oriented, resp reg unlabored, skin warm, color appropriate for race, moves all ext without difficulty, amb with steady gait [employer] UTILITY WORK[employer] Yara Rangel RN [facility] 2023-06-20 19:22:46 Pt given printed and verbal [...] in no apparent distress NE Garcia RN [facility] 2023-06-20 16:49:02 Brice Delatorre is a 47 year old female c/o abnormal vaginal bleeding off and for 5 months, states bleeds for a few weeks and then stops for about 1 week, then starts again, alert in no distress, skin w/d pink, oral mucosa pink moist NE Cordero RN [facility]
--- NOTE | 2025-01-10 15:01 | RAD REPORT ---
EXAM: CT Head Brain Wo Cont HISTORY: HEADACHE COMPARISON: None TECHNIQUE: Multiple contiguous axial images were obtained for a CT of the brain without contrast. Sag ittal and coronal reformats were performed. One or more of the following dose reduction techniques were used: Automated exposure control, adjus tment of the mA and kV according to patient size, and iterative reconstruction. Unless otherwise specified, incidental findings do not require dedicated imaging follow-up. FINDINGS: No evidence of hydrocephalus, intracranial hemorrhage, or extra-axial fluid collection. The brain is normal in morphology. The calvarium is intact. The visualized paranasal sinuses and mastoid air cells are essentially clear . IMPRESSION: No evidence of acute intracranial abnormality.
[2025-01-10] MEDS ORDERED: MORPHINE 4 MG/ML SYR ONE (15:13)
[2025-01-10] MEDS ORDERED: NA CHLORIDE 0.9% 1,000 ML ONE (15:14)
[2025-01-10] MEDS ORDERED: ONDANSETRON 4 MG/2 ML VIAL ONE (15:14)
[2025-01-10 15:25] LABS: Absolute Lymphocytes (CBC) 0.7 K/uL (0.7-4.9); Hematocrit 44.4 % (36.0-45.0); Hemoglobin 14.9 g/dL (12.0-15.0); MCH 29.8 pg (27.0-35.0); MCHC 33.7 g/dL (32.0-36.0); MCV 88.5 fL (80-100); MPV 7.2 fL (7.6-11.3); Nucleated RBC Absolute Count 0.0 (0-0); Nucleated Red Blood Cells % 0.0 % (0-0); RBC Red Blood Cell Count 5.01 M/uL (3.86-4.86); White Blood Count 14.80 thou/uL (4.3-10.9)
[2025-01-10 15:45] LABS: ALT/SGPT 74.0 U/L (13-56); AST/SGOT 29.0 U/L (15-37); Albumin 3.9 g/dL (3.4-5.0); Albumin/Globulin Ratio 0.9 (1.1-1.8); Alkaline Phosphatase 76.0 U/L (45-117); Anion Gap 10.5 mEq/L (5.0-15.0); BUN Blood Urea Nitrogen 17.0 mg/dL (7-18); Globulin 4.5 g/dL (2.3-3.5); Glucose Level 105.0 mg/dL (74-106); Lipase 47.0 U/L (13-75); Potassium 3.5 mEq/L (3.5-5.1)
[2025-01-10 16:35] LABS: White Blood Cell Scan OK (OK)
[2025-01-10 16:36] LABS: Blood Morphology Comment NOT SEEN (NOT SEEN)
--- NOTE | 2025-01-10 18:18 | RAD REPORT ---
EXAMINATION: CT Abdomen Pelvis W Contrast CLINICAL INDICATION: Female, 49 years old. ABD PAIN TECHNIQUE: CT abdomen and pelvis was performed, after the administration of IV contrast, as per [facility]. Axial, sagittal and coronal reconstructions were obtained. One or more of the following dose reduction techniques were used: Automated exposure control, adjustment of the mA and k V according to patient size, and iterative reconstruction. Unless otherwise specified, incidental findings do not require dedicated imaging follow-up. COMPARISON: 11/16/2024. FINDINGS: LOWER CHEST: The visualized lung bases are clear. LIVER: Mild fatty liver is present. No focal lesion or biliary dilataion is seen. BILIARY SYSTEM: Status post cholecystectomy. SPLEEN: Normal size. No focal lesion. PANCREAS: No mass, ductal dilation, or aric-pancreatic fluid. ADRENALS: Normal; no mass. KIDNEYS: Normal size and contour. No hydronephrosis. URINARY BLADDER: Unremarkable. GASTROINTESTINAL TRACT: No evidence of free air, significant intra-abdominal free fluid, bowel obstru ction or abscess. APPENDIX: Normal appendix. LYMPH NODES: No lymphadenopathy. MUSCULOSKELETAL: No acute or suspicious osseous abnormality. ADDITIONAL FINDINGS: None. IMPRESSION: No acute or concerning abnormalities seen in the abdomen or pelvis. Diffuse hepatic steatosis.
[2025-01-10] MEDS ORDERED: ACETAMINOPHEN 500 MG TAB ONE (18:20)
--- NOTE | 2025-01-10 18:33 | ER ---
Nurse's Notes [facility] Name: Ariana Delatorre Age: 49 yrs Sex: Female : 1975 Arrival Date: 01/10/2025 Time: 13:39 Bed 16 Private MD: Diagnosis: Abdominal pain, Generalized;Headache Presentation: 01/10 13:59 Chief complaint: Patient states: Sore throat, abdominal pain, nausea, diarrhea for 5 ll1 days. Came in yesterday , started on antibiotics. Coronavirus screen: Client denies travel out of the [place] in the last 14 days. diarrhea, fatigue, sore throat, Client presents with at least one sign or symptom that may indicate coronavirus-19. Standard/surgical mask placed on the client. Ebola Screen: Patient denies travel to an Ebola-affected area in the 21 days before illness onset. Initial Sepsis Screen: Does the patient meet any 2 criteria? No. Patient's initial sepsis screen is negative. Does the patient have a suspected source of infection? No. Patient's initial sepsis screen is negative. Risk Assessment: Do you want to hurt yourself or someone else? Patient reports no desire to harm self or others. Onset of symptoms was January 05, 2025. 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 - Infectious Disease History:: Denies. - Social history:: Smoking status: Patient reports the use of cigarette tobacco products, denies chronic smoking, but will smoke occasionally, Reported history of juuling and/or vaping. Screenin:15 [facility] ED Fall Risk Assessment (Adult) History of falling in the last 3 months, kj2 including since admission No falls in past 3 months (0 pts) Confusion or Disorientation No (0 pts) Intoxicated or Sedated No (0 pts) Impaired Gait No (0 pts) Mobility Assist Device Used No (0 pt) Altered Elimination No (0 pt) Score/Fall Risk Level 0 - 2 = Low Risk Maintained a safe environment, Hourly rounding (assess needs \T\ fall precautionary measures) done. Abuse screen: Denies threats or abuse. Denies injuries from another. Nutritional screening: No deficits noted. Tuberculosis screening: No symptoms or risk factors identified. Assessment: 14:58 Reassessment: Patient and/or family updated on plan of care and expected duration. Pain jl7 level reassessed. 15:15 General: Appears in no apparent distress. Behavior is cooperative. Pain: Complains of kj2 pain in left lower quadrant and left upper quadrant Pain currently is 8 out of 10 on a pain scale. Neuro: Level of Consciousness is awake, alert, obeys commands, Oriented to person, place, time, situation. Cardiovascular: Patient's skin is warm and dry. Respiratory: Airway is patent Respiratory effort is unlabored. GI: Abdomen is non-distended. : No signs and/or symptoms were reported regarding the genitourinary system. EENT: Throat with gag reflex present. 15:15 Respiratory: Breath sounds are clear bilaterally. kj2 16:12 Reassessment: Patient appears in no apparent distress at this time. Patient and/or kj2 family updated on plan of care and expected duration. Pain level reassessed. Patient is alert, oriented x 3, equal unlabored respirations, skin warm/dry/pink. 17:12 Reassessment: Patient appears in no apparent distress at this time. Patient and/or kj2 family updated on plan of care and expected duration. Pain level reassessed. General:. 18:24 Reassessment: Patient appears in no apparent distress at this time. Patient and/or kj2 family updated on plan of care and expected duration. Pain level reassessed. Patient is alert, oriented x 3, equal unlabored respirations, skin warm/dry/pink. 18:44 Reassessment: Patient appears in no apparent distress at this time. Patient and/or kj2 family updated on plan of care and expected duration. Pain level reassessed. Patient is alert, oriented x 3, equal unlabored respirations, skin warm/dry/pink. Vital Signs: 14:03 BP 132 / 102; Pulse 77; Resp 17; Temp 98.1; Pulse Ox 99% ; Weight 56.7 kg; Height 5 ft. ll1 2 in. ; Pain 9/10; 16:12 BP 138 / 93; Pulse 70; Resp 20; Pulse Ox 100% ; kj2 17:15 BP 124 / 85; Pulse 75; Resp 20; Pulse Ox 100% on R/A; kj2 18:28 BP 129 / 86; Pulse 75; Resp 18; Pulse Ox 100% on R/A; kj2 18:45 BP 128 / 84; Pulse 76; Resp 20; Temp 98; Pulse Ox 100% on R/A; kj2 14:03 Body Mass Index 22.86 (56.70 kg, 157.48 cm) ll1 14:03 Pain Scale: Adult ll1 ED Course: 13:44 Patient arrived in ED. gl 13:44 Stefanie Price FNP-C is PHCP. kb 13:44 Zaynab De La Cruz is Attending Physician. kb 14:01 Triage completed. ll1 14:02 Arm band placed on. ll1 14:20 CT Head Brain wo Cont In Process Unspecified. EDMS 14:58 Patient placed in an exam room, on a stretcher. jl7 15:04 Daisy Armstrong, RN is Primary Nurse. kj2 15:15 Patient has correct armband on for positive identification. Bed in low position. Call kj2 light in reach. Side rails up X 1. Provided Education on: call light. 15:19 Inserted saline lock: 20 gauge in left antecubital area, using aseptic technique. Blood kj2 collected. Flushed with 10 mL NS. 17:36 CT Abd/Pelvis - IV Contrast Only In Process Unspecified. EDMS 18:33 No provider procedures requiring assistance completed. IV discontinued, intact, kj2 bleeding controlled, No redness/swelling at site. Pressure dressing applied. Administered Medications: 15:28 Drug: morphine IVP or IV 4 mg IVP once over 4 mins Route: IVP; Infused Over: 4 mins; kj2 Site: left antecubital; 18:24 Follow up: Response: No adverse reaction kj2 15:30 Drug: Ondansetron IVP 4 mg IVP once; over 2 minutes Route: IVP; Site: left antecubital; kj2 18:24 Follow up: Response: No adverse reaction kj2 15:30 Drug: NS 0.9% IV 1000 ml IV at 1 bolus Per protocol; to be given as a bolus over 60 kj2 minutes Route: IV; Rate: 1 bolus; Site: left antecubital; 18:24 Follow up: IV Status: Completed infusion kj2 18:24 Drug: Acetaminophen PO 1000 mg PO once Route: PO; kj2 19:09 Follow up: Response: No adverse reaction kj2 Medication: 18:28 VIS not applicable for this client. kj2 Outcome: 18:32 Discharge ordered by . erick 18:34 Discharged to home ambulatory, with family, kj2 18:34 Condition: stable 18:34 Discharge instructions given to patient, Instructed on discharge instructions, follow up and referral plans. Demonstrated understanding of instructions, follow-up care, 19:10 Patient left the ED. kj2 Signatures: Dispatcher [employer] EDMS Stefanie Price, JOSHUA MARTINEZ-Eleazar Garza RN RN jl7 Jose Miguel Wheeler RN RN ll1 Daisy Armstrong RN RN kj2 Audelia Burns, Reg Reg gl
--- NOTE | 2025-01-10 18:33 | EDPHYS ---
Physician Documentation [facility] Name: Ariana Delatorre Age: 49 yrs Sex: Female : 1975 Arrival Date: 01/10/2025 Time: 13:39 Bed 16 Private MD: ED Physician Zaynab De La Cruz HPI: 01/10 14:04 This 49 yrs old Female presents to ER via Ambulatory with complaints of Sore Throat, kb Abdominal Pain. 14:04 Patient is a 49-year-old female who presents for left abdominal pain, nausea, diarrhea, kb and pain to left side of head and face, throat and ear. Denies fever. States symptoms started 5 days ago. Was seen here yesterday, had throat swab completed and was put on amoxicillin. States that symptoms have gotten worse since then and the ibuprofen is not helping for pain.. 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 - Infectious Disease History:: Denies. - Social history:: Smoking status: Patient reports the use of cigarette tobacco products, denies chronic smoking, but will smoke occasionally, Reported history of juuling and/or vaping. ROS: 14:04 Constitutional: As per HPI kb Exam: 14:04 Constitutional: This is a well developed, well nourished patient who is awake, alert, kb and in no acute distress. Head/Face: Normocephalic, atraumatic. ENT: Moist Mucous membranes Cardiovascular: Regular rate Respiratory: Respirations even and unlabored. No increased work of breathing. Talking in full sentences Skin: Warm, dry with normal turgor. Normal color. MS/ Extremity: Pulses equal, no cyanosis. Neurovascular intact. Full, normal range of motion. Neuro: Awake and alert, GCS 15, oriented to person, place, time, and situation. 14:04 Abdomen/GI: Inspection: abdomen appears normal, Bowel sounds: normal, Palpation: soft, in all quadrants, mild abdominal tenderness, in the left upper quadrant and left lower quadrant, Vital Signs: 14:03 BP 132 / 102; Pulse 77; Resp 17; Temp 98.1; Pulse Ox 99% ; Weight 56.7 kg; Height 5 ft. ll1 2 in. ; Pain 9/10; 16:12 BP 138 / 93; Pulse 70; Resp 20; Pulse Ox 100% ; kj2 17:15 BP 124 / 85; Pulse 75; Resp 20; Pulse Ox 100% on R/A; kj2 18:28 BP 129 / 86; Pulse 75; Resp 18; Pulse Ox 100% on R/A; kj2 18:45 BP 128 / 84; Pulse 76; Resp 20; Temp 98; Pulse Ox 100% on R/A; kj2 14:03 Body Mass Index 22.86 (56.70 kg, 157.48 cm) ll1 14:03 Pain Scale: Adult ll1 MDM: 13:45 Medical Screening Exam initiated kb 14:04 Data reviewed: vital signs, nurses notes. kb 14:29 Differential diagnosis: Pharyngitis, otitis media, diverticulitis, dehydration, viral kb illness, mono, abnormal electrolytes. ED course: Patient is a 49-year-old female who presents for pain to left side of head, face, throat and ear, abdominal pain, nausea, vomiting and diarrhea. On exam patient has tenderness to left side of abdomen. Exam of ear and throat is unremarkable. Will obtain CT head to evaluate headache, CBC, CMP, lipase and mono to evaluate other symptoms. Strep test considered but was completed yesterday and negative. Morphine ordered for pain, Zofran for nausea and IV fluids.. 18:31 External Records Reviewed: [facility] reviewed.. Counseling: I had a detailed kb discussion with the patient and/or guardian regarding the historical points, exam findings, and any diagnostic results supporting the discharge/admit diagnosis, lab results, radiology results, the need for outpatient follow up, a family practitioner, to return to the emergency department if symptoms worsen or persist or if there are any questions or concerns that arise at home. 01/10 14:04 Order name: CBC with Diff; Complete Time: 16:43 kb 01/10 14:04 Order name: CMP; Complete Time: 15:49 kb 01/10 14:04 Order name: Lipase; Complete Time: 15:49 kb 01/10 14:04 Order name: [place] [facility] Screen Profile; Complete Time: 16:04 kb 01/10 15:48 Order name: CBC Smear Scan; Complete Time: 16:43 EDMS 01/10 14:04 Order name: CT Head Brain wo Cont; Complete Time: 15:02 kb 01/10 16:04 Order name: CT Abd/Pelvis - IV Contrast Only; Complete Time: 18:21 kb 01/10 14:04 Order name: IV Saline Lock; Complete Time: 15:19 kb 01/10 14:04 Order name: Labs collected and sent; Complete Time: 15:19 kb Administered Medications: 15:28 Drug: morphine IVP or IV 4 mg IVP once over 4 mins Route: IVP; Infused Over: 4 mins; kj2 Site: left antecubital; 18:24 Follow up: Response: No adverse reaction kj2 15:30 Drug: Ondansetron IVP 4 mg IVP once; over 2 minutes Route: IVP; Site: left antecubital; kj2 18:24 Follow up: Response: No adverse reaction kj2 15:30 Drug: NS 0.9% IV 1000 ml IV at 1 bolus Per protocol; to be given as a bolus over 60 kj2 minutes Route: IV; Rate: 1 bolus; Site: left antecubital; 18:24 Follow up: IV Status: Completed infusion kj2 18:24 Drug: Acetaminophen PO 1000 mg PO once Route: PO; kj2 19:09 Follow up: Response: No adverse reaction kj2 Disposition Summary: 01/10/25 18:32 Discharge Ordered Notes: Location: Home kb Condition: Stable kb Diagnosis - Abdominal pain, Generalized kb - Headache kb Followup: kb - With: Emergency Department - When: As needed - Reason: Worsening of condition Followup: kb - With: Private Physician - When: 2 - 3 days - Reason: Recheck today's complaints, Continuance of care, Re-evaluation by your physician Discharge Instructions: - Discharge Summary Sheet kb - Abdominal Pain, Adult, [id number] kb - General Headache Without Cause, [id number] kb Forms: - Medication Reconciliation Form kb - Antibiotic Education kb - Prescription Opioid Use kb - Patient Portal Instructions kb - Leadership Thank You Letter kb Signatures: Dispatcher [employer] EDMS Stefanie Price FNP-C FNP-Jose Miguel Balderas RN RN ll1 Daisy Armstrong RN RN kj2
[2025-01-10 19:41] VITALS: O2SAT 100
[2025-01-10 19:46] VITALS: BP 128/84; TEMP 98
== END 2025-01-10 19:10 | disposition home or self-care (01) ==
LOC: ER 13:39
DX: R10.84 Generalized abdominal pain (principal); R51.9 Headache, unspecified; F17.210 Nicotine dependence, cigarettes, uncomplicated
CPT/HCPCS: 96361; 85025; 36415; 86308; 83690; 80053; 70450; 74177; 96375; 96374; 99284; Q9967; J2405; J7030

== ENCOUNTER 2025-02-24 17:02 | Emergency (ER) | payer OTHER ==
--- OUTSIDE RECORDS SUMMARY | 2025-02-24 17:14 | XMS REPORT | Continuity of Care Document ---
Author Name Unknown Address [address] [facility] [place] [address] [facility] 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 Name Role Phone AKIL MENDEZ Primary Care Physician Unavailab AKIL Marquez Attending Clinician Unavailable MARY GOODMAN Attending Clinician Unavailable GUSTABO SOLIZ Attending Clinician Unavailable [id number] Attending Clinician Unavailable MD JASON Attending Clinician Unavailab WYATT Hardwick Attending Clinician Unavail able MONAE HOYOS Attending Clinician Unav ailable JAMMIE GAO Attending Clinician Unavailable SERJIO ANDINO Attending Clinician Unavailable SERJIO ANDINO Attending Clinician Unavailable KAYLAH CLARKE Attending Clinician Unavailable BEBE PACHECO Attending Clinician Unavailable Doctor Unassigned, [place] Attending Clinician U RADHA Archer Attending Clinician Unavailab YULY Ramires Attending Clinician Unav ailable YULY SAUCEDO Attending Clinician Unav ailable TYREE NAIDU Attending Clinician UnavailKVNG Roldan Attending Clinician Unav ailable JAQUI NORRIS Attending Clinician Unavailable Jaqui Norris NP Attending Clinician [phone] Suma Rosario Attending Clinician Unavailab Saulo Reyes Attending Clinician Unavaila ble LAB90 Attending Clinician Unavailable Levon Hurley Attending Clinician Unavailable Yuly Saucedo MD Attending Clinician + Paresh Lyman Attending Clinician [phone] DANDRE JOHANSEN Attending Clinician Unavailable RADIOLOGY Attending Clinician Unavailable SAULO MONTENEGRO Attending Clinician UnavailPARESH Gutierrez Attending Clinician Unavailable Sherri Hall RN Attending Clinician Unavailable Lab, Ang - Db Attending Clinician Unavailable ANA CRISTINA RAYMOND Attending Clinician Unavailable Ana Cristina Hoang Attending Clinician [phone] Pcp, Patient Does Not Have A Attending Clinician JONA GRANADOS Attending Clinician Unavailable JONA GRANADOS Attending Clinician Unavailable Jona Miller Attending Clinician [phone] David Swanson Attending Clinician [phone] CAREN JOHNSTON Attending Clinician Unavailable CAREN JOHNSTON Attending Clinician Unavailable Caren Mulligan Attending Clinician [phone] ALIN WYATT Attending Clinician Unavailable Beba Crespo RN Attending Clinician [phone] Doctor Unassigned, [place] Attending Clinician U navailable RICH MONTILLA Attending Clinician Unavailable RICH MONTILLA Attending Clinician Unavailable LEE JETT Attending Clinician Unavailable Yesenia Ogden Attending Clinician [phone] YESENIA KENDRICK Attending Clinician Unavailable _[email or web address]_[email or web address]_Dan1 Attending Clinician Unavaila efrain Joy Attending Clinician Unavailable DR JOSE L [...] Clinician Unavailable LEE JETT Admitting Clinician Unavailable [email or web address] Admitting Clinician Unavailsal Joy Admitting Clinician Unavailable DR JOSE L REYNOLDS Admitting Clinician Unava ilable Payers Payer Name Policy Type Policy Number Effective Date Expirati on Date Source GOLD 3 ADVANCED 9 [id number] 2024 00:00:00 [employer] W/ ISABEL MUÑOZYBOLD OON [id number] 2024 00:00:00 [facility] ISABEL-SEYBOLD STEWART COPAY FOCUS 9 [id number] 2023 00:00:00 [facility] [place] FROM [facility] [id number] 2023 00:00:00 [facility] [id number] [id number] 00:00:00 [facility] [id number] Problems Condition Name Condition Details Condition Category Status Onset Date Resolution Date Last Treatment Date Treating Clinician Comments Source Oropharyng eal dysphagia Oropharyng eal dysphagia Disease Active 02-24 00:00: 00 Isabel Seybold - Externa l Localized swelling, mass or lump of neck Localized swelling, mass or lump of neck Disease Active 02-24 00:00: 00 Isabel Seybold - Externa l Gastroesop hageal reflux disease without esophagiti s Gastroesop hageal reflux disease without esophagiti s Disease Active 02-24 00:00: 00 Isabel Seybold - Externa l Submandibu lar lymphadeno radha Submandibu lar lymphadeno radha Disease Active 02-24 00:00: 00 Isabel Seybold - Externa l Hot flashes Hot flashes Disease Active 02-24 00:00: 00 Isabel Seybold - Externa l Seasonal allergic rhinitis due to pollen Seasonal allergic rhinitis due to pollen Disease Active 02-24 00:00: 00 Isabel Seybold - Externa l History of tobacco use History of tobacco use Disease Active - 00:00: 00 Isabel Seybold - Externa l Pain in both feet Pain in both feet Disease Active 5-12 00:00: 00 Isabel Seybold - Externa l Thrombocyt osis Thrombocyt osis Problem Active 5-07 00:00: 00 [facility] Menopausal symptom Menopausal Symptom Problem Active 5-07 00:00: 00 [facility] Atrophic vaginitis Atrophic Vaginitis Problem Active 5-07 00:00: 00 [facility] Other emphysema Other emphysema Disease Active 3- 00:00: 00 Isabel Seybold - Externa l [...] 00 [facility] Snoring Snoring Disease Active 1-13 00:00: 00 Isabel Seybold - Externa l Well adult exam Well adult exam Disease Active 1-13 00:00: 00 Isabel Seybold - Externa l LLQ pain LLQ pain Disease Active 2023-06 2-02 00:00: 00 [facility] Mastodynia of bilateral breasts Mastodynia of Bilateral Breasts Problem Active 2023-06 1- 00:00: 00 [facility] Menorrhagi a with regular cycle Menorrhagi a with regular cycle Disease Active 2023-06 00:00: 00 [facility] Preoperati ve clearance Preoperati ve clearance Disease Active 2023-06 00:00: 00 [facility] Smoker Smoker Disease Active 2023-06 00:00: 00 [facility] Hemorrhagi c cystitis Hemorrhagi c cystitis Disease Active 2023-06 00:00: 00 [facility] Radiology result abnormal Radiology Result Abnormal Problem Active 2023-06 0-31 00:00: 00 [facility] Mass of left breast Mass of Left Breast Problem Active 2023-06 0-31 00:00: 00 [facility] Cervical intraepith elial neoplasia grade 2 Cervical Intraepith elial Neoplasia Grade 2 Problem Active 2023-06 0-17 00:00: 00 [facility] Atypical glandular cells on cervical Papanicola ou smear Atypical Glandular Cells on Cervical Papanicola ou Smear Problem Active 0 8-29 00:00: 00 [facility] Human papillomav irus deoxyribon ucleic acid detected, high risk on cervical specimen Human Papillomav irus Deoxyribon ucleic Acid Detected, High Risk on Cervical Specimen Problem Active 0 8-29 00:00: 00 [facility] Cigarette smoker Cigarette Smoker Problem Active 0 8-19 00:00: 00 [facility] Pelvic and perineal pain Pelvic and Perineal Pain Problem Active 0 8-19 00:00: 00 [facility] Cyst of ovary Cyst of Ovary Problem Active 0 8-19 00:00: 00 [facility] Abnormal uterine bleeding Abnormal Uterine Bleeding Problem Active 0 8-19 00:00: 00 [facility] Heartburn Heartburn Problem Active 0 8-19 00:00: 00 [facility] Abdominal bloating Abdominal Bloating Problem Active 0 8-19 00:00: 00 [facility] Left lower quadrant pain Left Lower Quadrant Pain Problem Active 0 8-19 00:00: 00 [facility] Right ovarian cyst Right ovarian cyst Disease Active 0 1-25 00:00: 00 [facility] Fibroids Fibroids Disease Active Kelse y Seybold - Externa l History of kidney stones History of kidney stones Disease Active Isabel Seybold - Externa l Insomnia Insomnia Disease Active Kelse y Seybold - Externa l Hepatic steatosis Hepatic steatosis Disease Active Isabel Seybold - Externa l Tobacco abuse Tobacco abuse Disease Active 0 5-12 00:00: 00 2024-10-13 00:00:00 2024-10-13 10:59:57 Isabel Seybold - Externa l Left lower lobe pulmonary nodule Left lower lobe pulmonary nodule Disease Resolve d 2024-09-01 00:00:00 2024-09-01 11:19:46 Isabel Seybold - Externa l Allergies, Adverse Reactions, Alerts Allergy Name Allergy Type Status Severity Reaction(s) Onset Date Inactive Date Treating Clinician Comments Source No Known Allergie s DA Active [facility] 1[facility]16 [facility]:00[facility]NOWN ALLERGIE S Drug Class Active [facility] Social History Social Habit Start Date Stop Date Quantity Comments Source Sexual orientation Grant gallardo Melodie - External Gender identity Adriane Sewell - External History of tobacco use Cigarette Smoker Isabel flores - External ASSERTION Possible [facility] Alcoholic beverage intake 2025-02-24 00:00:00 2025-02-24 00:00:00 Ex-drinker (finding) Isabel Sewell - External [...] 2022-12-20 00:00:00 Current drinker of alcohol (finding) [facility] Sex assigned at 1975 00:00:00 1975 00:00:00 Isabel Sewell - External Smoking Status Start Date Stop Date Source Ex-smoker 2024-10-13 00:00:00 2024-10-13 00:00:00 Isabel Benjamin Occasional tobacco smoker 2024-10-03 00:00:00 Isabel Benjamin Smokes tobacco daily 2024-04-28 00:00:00 [facility] Medications Ordered Medication Name Filled Medication Name Start Date Stop Date Current Medication? Ordering Clinician Indication Dosage Frequency Signature (SIG) Comments Components Source Pantoprazol e Sodium 40 MG oral Tablet Delayed Response Pantoprazol e Sodium 40 MG oral Tablet Delayed Response 02-24 00:00: 00 Yes [id number] 40mg QD Take 1 tablet (40 mg total) by mouth daily. Isabel duron Quetiapine Fumarate 50 MG oral Tablet Quetiapine Fumarate 50 MG oral Tablet 02-19 00:00: 00 Yes [id number] 50mg QD Take 1 tablet (50 mg total) by mouth nightly. Isabel duron Trazodone HCl 50 MG oral Tablet Trazodone HCl 50 MG oral Tablet 02-18 00:00: 00 Yes 100mg QD Take 2 tablets (100 mg total) by mouth nightly. Isabel duron Trazodone HCl 50 MG oral Tablet Trazodone HCl 50 MG oral Tablet 02-13 00:00: 00 Yes 50mg QD Take 1 tablet (50 mg total) by mouth nightly. Isabel duron Nicotine 21 MG/24HR transdermal PATCH 24 HR Nicotine 21 MG/24HR transdermal PATCH 24 HR 01-15 09:01: 54 Yes 1{patch } Place 1 patch onto the skin in the morning. Isabel duron Albuterol HFA 108 (90 Base) MCG/ACT IN AERS Albuterol HFA 108 (90 Base) MCG/ACT IN AERS 01-15 00:00: 00 Yes [id number] 2{puff} Q.25D Inhale 2 puffs into the lungs every 6 hours as needed for wheezing or shortness of breath. Isabel duron FLUTICASONE PROPIONATE, NASAL, 50 MCG/ACT nasal Suspension FLUTICASONE PROPIONATE, NASAL, 50 MCG/ACT nasal Suspension 01-15 00:00: 00 Yes [id number] 50ug Q.5D Use 1 spray (50 mcg total) in each nostril 2 times daily. Isabel duron Fluticasone -Salmeterol (Advair Diskus) 100-50 MCG/ACT inhalation AEROSOL POWDER, BREATH ACTIVATED Fluticasone -Salmeterol (Advair Diskus) 100-50 MCG/ACT inhalation AEROSOL POWDER, BREATH ACTIVATED 01-15 00:00: 00 Yes [id number] 1{puff} Q.5D Inhale 1 puff into the lungs 2 times daily. Isabel duron Cyclobenzap rine HCl 5 MG oral Tablet Cyclobenzap rine HCl 5 MG oral Tablet 01-15 00:00: 00 02-24 00:00 :00 No [id number] 5mg QD Take 1 tablet (5 mg total) by mouth nightly as needed for muscle spasms. Isabel duron Amoxicillin -Pot Clavulanate 875-125 MG oral Tablet Amoxicillin -Pot Clavulanate 875-125 MG oral Tablet 01-15 00:00: 00 02-24 00:00 :00 No [id number] 1{tbl} Q.5D Take 1 tablet by mouth 2 times daily. Isabel duron Ibuprofen (MOTRIN) 800 MG oral Tablet Ibuprofen (MOTRIN) 800 MG oral Tablet 01-09 00:00: 00 01-15 00:00 :00 No Isabel duron dexamethaso ne sod phos PF injection 8 mg 01-04 16:45: 00 01-04 17:19 :00 No 8mg 8 mg, Intramuscu lar, ONCE, 1 dose, On 01/04/25 at 1145, 1 mL [facility] methylPREDN ISolone 4 mg tablets 01-04 00:00: 00 Yes [id number] Take by mouth SEE-INSTRU CTIONS. follow package directions [facility] cephALEXin 500 mg capsule 01-04 00:00: 00 Yes [id number] 500mg Take 1 capsule by mouth in the morning and 1 capsule at noon and 1 capsule in the evening. [facility] Loratadine (CLARITIN) 10 MG oral tablet Loratadine (CLARITIN) 10 MG oral tablet 01-04 00:00: 00 Yes 10mg QD Take 1 tablet (10 mg total) by mouth daily. Isabel duron HYDROcodone -acetaminop hen 5-325 mg tablet 01-04 00:00: 00 01-12 04:59 :00 Yes [id number] 1{tbl} Take 1-2 tablets by mouth every 6 hours as needed for Pain (scale 4-6) for up to 7 days. [facility] Nicotine 21 MG/24HR transdermal PATCH 24 HR 12-23 13:51: 09 Yes 1{patch } Place 1 patch onto the skin in the morning. Isabel duron Diclofenac Sodium 75 MG oral Tablet Delayed Response Diclofenac Sodium 75 MG oral Tablet Delayed Response 12-23 00:00: 00 01-15 00:00 :00 No 75mg Q.5D Take 1 tablet (75 mg total) by mouth 2 times daily Take with food. Stop taking this medication if it upsets your stomach.. Isabel duron methylPREDN ISolone (Medrol) 4 MG oral Tablet Therapy Pack methylPREDN ISolone (Medrol) 4 MG oral Tablet Therapy Pack 12-23 00:00: 00 01-15 00:00 :00 No 1{calista} Take 1 calista by mouth See Admin Instructio ns Use as directed.. Isabel duron Temazepam 15 MG oral Capsule Temazepam 15 MG oral Capsule 12-22 00:00: 00 Yes [id number] 15mg QD Take 1 capsule (15 mg [...] Isabel duron Gabapentin 400 MG oral Capsule Gabapentin 400 MG oral Capsule 12-18 00:00: 00 Yes [id number] 400mg Q.[id number] 3D Take 1 capsule (400 mg total) by mouth 3 times daily. Isabel duron Celecoxib (CeleBREX) 100 MG oral Capsule Celecoxib (CeleBREX) 100 MG oral Capsule 12-18 00:00: 00 01-15 00:00 :00 No [id number] 9105 100mg Q.5D Take 1 capsule (100 mg total) by mouth 2 times daily as needed. Isabel duron Na Sulfate-K Sulfate-Mg Sulf (SUPREP BOWEL PREP KIT) 17.5-3.13-1 .6 GM/177ML oral Solution Na Sulfate-K Sulfate-Mg Sulf (SUPREP BOWEL PREP KIT) 17.5-3.13-1 .6 GM/177ML oral Solution 12-17 00:00: 00 02-24 00:00 :00 No Isabel duron Nicotine 21 MG/24HR transdermal PATCH 24 HR 12-10 14:30: 03 Yes 1{patch } Place 1 patch onto the skin in the morning. Isabel duron Temazepam 15 MG oral Capsule 12-10 14:29: 48 12-10 00:00 :00 No 15mg QD Take 1 capsule (15 mg total) by mouth nightly as needed for sleep. Isabel duron Progesteron e 200 MG oral Capsule Progesteron e 200 MG oral Capsule 12-06 00:00: 00 Yes 200mg QD 1 capsule (200 mg total) nightly. Isabel duron Pantoprazol e Sodium 40 MG oral Tablet Delayed Response Pantoprazol e Sodium 40 MG oral Tablet Delayed Response 12-06 00:00: 00 02-24 00:00 :00 No Isabel duron Gabapentin 300 MG oral Capsule 12-02 00:00: 00 12-18 00:00 :00 No Isabel duron Quetiapine Fumarate 50 MG oral Tablet Quetiapine Fumarate 50 MG oral Tablet 11-24 00:00: 00 Yes [id number] 50mg QD TAKE 1 TABLET BY MOUTH ONCE NIGHTLY Isabel duron Ondansetron (ZOFRAN) 8 MG oral TABLET DISPERSIBLE 16 00:00: 00 12-22 00:00 :00 No Isabel duron maalox/diph enhydrAMINE :lidocaine2 %viscous 1:1:1: suspension (COMPOUNDED ) 10-24 05:00: 00 10-24 05:05 :00 No 15mL 15 mL, Oral, ONCE, 1 dose, On Sun10/24/24 at 0000, Routine [facility] cefTRIAXone (ROCEPHIN) 1,000 mg in sterile water for injection 10 mL IV Push 10-24 04:00: 00 10-24 04:12 :00 No 1000mg 1,000 mg, Intravenou s, ONCE, 1 dose, On Breanna 10/23/24 at 2300, 10 mL, Reason for Anti-Infec tive: Documented Infection, Documented Infection Site: Urine, Duration of therapy: Once (ED) [facility] ondansetron (ZOFRAN (PF)) injection 4 mg 10-24 04:00: 00 10-24 04:14 :00 No 4mg 4 mg, Slow IV Push, ONCE, 1 dose, On Breanna 10/23/24 at 2300, Administer over 2-5 Minutes, 2 mL [facility] morpHINE (4 mg/mL) injection 4 mg 10-24 04:00: 00 10-24 04:12 :00 No 4mg 4 mg, Slow IV Push, ONCE, 1 dose, On Breanna 10/23/24 at 2300, STAT [facility] iopamidol (ISOVUE 370-500 mL) injection 83 mL 10-24 02:20: 00 10-24 02:30 :00 No [id number] 83mL 83 mL, Intravenou s, ONCE, 1 dose, On Breanna 10/23/24 at 2130, Routine [facility] cefdinir 300 mg capsule 10-23 00:00: 00 11-03 04:59 :00 No [id number] 300mg Take 1 capsule by mouth in the morning and 1 capsule in the evening. Do all this for 10 days. [facility] Temazepam 15 MG oral Capsule 10-20 13:21: [...] 10-20 00:00: 00 12-18 00:00 :00 No [id number] 75mg Q.5D Take 1 tablet (75 mg total) by mouth 2 times daily. Isabel duron Gabapentin 100 MG oral Capsule 10-20 00:00: 00 12-10 00:00 :00 No [id number] 9103 TAKE 1 CAPSULE BY MOUTH 2 TIMES A DAY NEEDED FOR PAIN Isabel duron Capsaicin 0.1 % apply externally Cream 10-20 00:00: 00 12-10 00:00 :00 No [id number] 1{appli cation} Q.[id number] 3D Apply 1 Applicatio n topically 3 times daily. Isabel duron Nicotine 21 MG/24HR transdermal PATCH 24 HR 10-13 11:01: 55 Yes 1{patch } Place 1 patch onto the skin in the morning. Isabel Gould l Temazepam 15 MG oral Capsule 10-13 10:28: 56 Yes 15mg QD Take 1 capsule (15 mg total) by mouth nightly as needed for sleep. Isabel duron Lyllana 0.1 MG/24HR transdermal PATCH BIWEEKLY Lyllana 0.1 MG/24HR transdermal PATCH BIWEEKLY 10-08 [...] HFA 108 (90 Base) MCG/ACT IN AERS Albuterol HFA 108 (90 Base) MCG/ACT IN AERS 10-03 00:00: 00 01-15 00:00 :00 No [id number] 2{puff} Q.25D Inhale 2 puffs into the [...] 09-29 00:00: 00 12-10 00:00 :00 No [id number] 15mg QD Take 1 tablet (15 mg total) by mouth daily Take with Meals, STOP IF UPSET STOMACH. Isabel duron methylPREDN ISolone (Medrol) 4 MG oral Tablet Therapy Pack 09-29 00:00: 00 10-06 04:59 :00 No [id number] 1{calista} Take 1 calista by mouth See Admin Instructio ns for 6 days Use as directed.. Isabel duron HYDROcodone -acetaminop hen (NORCO 5) tablet 1 tablet 09-06 15:00: 00 09-06 14:58 :00 No 1{tbl} 1 tablet, Oral, ONCE, 1 dose, On 09/06/24 at 1000, SYLVESTER [facility] ibuprofen 800 mg tablet 4-05 00:00: 00 Yes [id number] 800mg Take 1 tablet by mouth every 6 (six) hours as needed for Pain (scale 4-6). [facility] Albuterol HFA 108 (90 Base) MCG/ACT IN AERS 09-01 11:19: 15 Yes 2{puff} Q.25D Inhale 2 puffs into the lungs every 6 hours as needed for wheezing or shortness of breath. Isabel duron Quetiapine Fumarate 50 MG oral Tablet 09-01 00:00: 00 Yes [id number] 50mg QD Take 1 tablet (50 mg total) by mouth nightly. Isabel duron Meloxicam (Mobic) 15 MG oral Tablet 08-18 00:00: 00 Yes [id number] 15mg QD Take 1 tablet (15 mg total) by mouth daily Take with Meals, STOP IF UPSET STOMACH. Isabel duron Trazodone HCl 100 MG oral Tablet 3- 00:00: 00 09-01 00:00 :00 No [id number] 100mg QD Take 1 tablet (100 mg total) by mouth nightly as needed for sleep. Isabel duron Gabapentin 100 MG oral Capsule - 00:00: 00 Yes [id number] 100mg Q.5D Take 1 capsule (100 mg total) by mouth 2 times daily as needed (pain). Isabel duron Naproxen 500 MG oral Tablet 17 00:00: 00 09-01 00:00 :00 No 500mg Q.5D Take 1 tablet (500 mg total) by mouth 2 times daily as needed (pain). Isabel duron piperacilli n-tazobacta m (ZOSYN) 3.375 g in NaCl 0.9% (NS) 100 mL MINI-BAG - 23:45: 00 06-30 00:38 :00 No 3.375g 3.375 g, IV Piggyback, ONCE, 1 dose, On 06/29/24 at 1745, Administer over 30 Minutes, 100 mL, Reason for Anti-Infec tive: Documented Infection, Documented Infection Site: Abdominal, Duration of Therapy: Once (ED) [facility] morpHINE (4 mg/mL) injection 4 mg 06-29 23:00: 00 06-29 23:10 :00 No 4mg 4 mg, Slow IV Push, ONCE, 1 dose, On Sun06/29/24 at 1700, STAT [facility] iopamidol (ISOVUE 370-500 mL) injection 85 mL 06-29 22:45: 00 06-29 22:45 :00 No [id number] 85mL 85 mL, Intravenou s, ONCE, 1 dose, On 06/29/24 at 1645, Routine [facility] ondansetron (ZOFRAN (PF)) injection 4 mg 06-29 20:30: 00 06-29 20:50 :00 No 4mg 4 mg, Slow IV Push, ONCE, 1 dose, On 06/29/24 at 1430, Administer over 2-5 Minutes, 2 mL [facility] morpHINE (4 mg/mL) injection 4 mg 06-29 20:30: 00 06-29 20:48 :00 No 4mg 4 mg, Slow IV Push, ONCE, 1 dose, On Sun06/29/24 at 1430, STAT [facility] Quetiapine Fumarate 25 MG oral Tablet 06-19 00:00: 00 09-01 00:00 :00 No 25mg Take 1 tablet (25 mg total) by mouth. Isabel duron Trazodone HCl 50 MG oral Tablet 06-16 00:00: 00 Yes [id number] 50mg QD Take 1 tablet (50 mg total) by mouth nightly as needed for sleep. Isabel duron Celecoxib (CeleBREX) 200 MG oral Capsule 06-16 00:00: 00 07-21 00:00 :00 No [id number] 200mg Q.5D Take 1 capsule (200 mg total) by mouth 2 times daily as needed for pain. Isabel duron cephALEXin 500 mg capsule 2023-06 00:00: 00 01-04 00:00 :00 No [id number] 500mg Take 1 capsule by mouth in the morning and 1 capsule in the evening. [facility] sulfamethox azole-trime thoprim (BACTRIM DS) 800-160 mg per tablet 2023-06 00:00: 00 04-30 00:00 :00 No [id number] 1{tbl} Take 1 tablet by mouth in the morning and 1 tablet in the evening. Do all this for 7 days. [facility] gabapentin 300 mg capsule 2023-06 00:00: 00 Yes 300mg Take 1 capsule by mouth in the morning and 1 capsule at noon and 1 capsule in the evening. [facility] ondansetron (ZOFRAN-ODT ) disintegrat ing tablet 4 mg 2023-06 23:30: 00 04-02 23:19 :00 No 4mg 4 mg, Oral, ONCE, 1 dose, On Sun04/02/24 at 1830, Routine [facility] ketorolac (TORADOL) injection 15 mg 2023-06 23:30: 00 04-02 23:19 :00 No 15mg 15 mg, Intramuscu lar, ONCE, 1 dose, On Sun04/02/24 at 1830, Routine [facility] ondansetron 4 mg disintegrat ing tablet 2023-06 00:00: 00 Yes [id number] 4mg Take 1 tablet by mouth every 8 (eight) hours as needed for Nausea and Vomiting (N/V). [facility] QUEtiapine 25 mg tablet 2023-06 00:00: 00 Yes [facility] HYDROcodone -acetaminop hen (NORCO 5) tablet 1 tablet 2023-06 03:30: 00 03-26 03:34 :00 No 1{tbl} 1 tablet, Oral, ONCE, 1 dose, On Sun03/25/24 at 2230, SYLVESTER [facility] iopamidol (ISOVUE 370-500 mL) injection 83 mL 2023-06 02:15: 00 03-26 02:15 :00 No [id number] 83mL 83 mL, Intravenou s, ONCE, 1 dose, On Sun03/25/24 at 2115, Routine [facility] ketorolac (TORADOL) injection 15 mg 2023-06 01:30: 00 03-26 00:50 :00 No 15mg 15 mg, Slow IV Push, ONCE, 1 dose, On Sun03/25/24 at 2030, Routine [facility] traMADoL (ULTRAM) tablet 50 mg 2023-06 01:00: 00 03-26 00:42 :00 No 50mg 50 mg, Oral, ONCE NOW, 1 dose, On Sun03/25/24 at 2000, [facility] traMADoL 50 mg tablet 2023-06 00:00: 00 04-02 04:59 :00 No [id number] 50mg Take 1 tablet by mouth every 8 (eight) hours as needed for Pain (scale 7-10) for up to 7 days. Indication s: acute pain [facility] diazePAM 10 mg tablet 2023-06 00:00: 00 Yes Take by mouth. [facility] ketorolac (TORADOL) injection 30 mg 01-18 03:00: 00 01-18 03:09 :00 No 30mg 30 mg, Slow IV Push, ONCE, 1 dose, On Sun01/18/24 at 2200, SYLVESTER [facility] iopamidol (ISOVUE 370-500 mL) injection 60 mL 01-18 02:45: 00 01-18 02:45 :00 No [id number] 60mL 60 mL, Intravenou s, ONCE, 1 dose, On Sun01/18/24 at 2145, Routine [facility] NaCl 0.9% (NS) IV infusion 1,000 mL 01-18 00:30: 00 01-18 03:16 :00 No 1000mL at 999 mL/hr, Intravenou s, ONCE, 1 dose, On Sun01/18/24 at 1930, [facility] ondansetron (ZOFRAN (PF)) injection 4 mg 01-17 23:30: 00 01-18 02:34 :00 No 4mg 4 mg, Slow IV Push, ONCE, 1 dose, On Sun01/18/24 at 1830, [facility] fentanyl PF (SUBLIMAZE (PF)) injection 50 mcg 01-17 23:20: 00 01-18 02:34 :00 No 50ug 50 mcg, Slow IV Push, ONCE, 1 dose, On Sun01/18/24 at 1830, [facility] sodium chloride (NS) injection 5 mL 01-17 22:28: 58 Yes 5mL 5 mL, Intravenou s, PRN, Starting on Sun01/18/24 at 1728, Until Discontinu ed, Routine, IV line flushing [facility] naproxen (NAPROSYN) 500 mg tablet 01-17 00:00: 00 Yes [id number] 500mg Take 1 tablet by mouth 2 (two) times daily with meals as needed for Alternate with [place] for pain scale 1-3. [facility] traMADoL 50 mg tablet 01-17 00:00: 00 01-25 04:59 :00 No [id number] 50mg Take 1 tablet by mouth every 8 (eight) hours as needed for Pain (scale 7-10) for up to 7 days. Indication s: acute pain [facility] ketorolac (TORADOL) injection 15 mg 12-17 17:00: 00 12-17 16:21 :00 No 15mg 15 mg, Slow IV Push, ONCE, 1 dose, On Sun12/18/23 at 1200, [facility] naproxen 500 mg tablet 12-17 00:00: 00 12-28 04:59 :00 No [id number] 500mg Take 1 tablet by mouth in the morning and 1 tablet in the evening. Take with meals. Do all this for 10 days. [facility] HYDROcodone -acetaminop hen 5-325 mg tablet 7-16 00:00: 00 12-25 04:59 :00 No [id number] 1{tbl} Take 1-2 tablets by mouth every 6 (six) hours as needed for Pain (scale 4-6) for up to 7 days. Indication s: acute pain [facility] acetaminoph en (TYLENOL) tablet 650 mg 09-28 03:45: 00 09-28 03:39 :00 No 650mg 650 mg, Oral, ONCE, 1 dose, On Sun09/28/23 at 2245, [facility] ibuprofen (IBU) tablet 600 mg 09-28 01:30: 00 09-28 01:31 :00 No 600mg 600 mg, Oral, ONCE, 1 dose, On Sun09/28/23 at 2030, [facility] ondansetron (ZOFRAN (PF)) injection 4 mg 08-03 02:15: 00 08-03 06:15 :00 No 4mg 4 mg, Slow IV Push, ONCE, 1 dose, On Sun08/03/23 at 2015, [facility] famotidine (PEPCID (PF)) injection 20 mg 08-03 02:15: 00 08-03 06:14 :00 No 20mg 20 mg, Slow IV Push, ONCE, 1 dose, On Sun08/03/23 at 2015, [facility] acetaminoph en (TYLENOL) tablet 1,000 mg 08-03 02:15: 00 08-03 06:13 :00 No 1000mg 1,000 mg, Oral, ONCE, 1 dose, On Sun08/03/23 at 2015, [facility] maalox:diph enhydrAMINE :lidocaine 2 % viscous 1:1:1 ([facility]) oral suspension 15 mL 08-03 02:15: 00 08-03 06:14 :00 No 15mL 15 mL, Oral, ONCE, 1 dose, On Sun08/03/23 at 2015, Routine [facility] ondansetron 4 mg disintegrat ing tablet 08-03 00:00: 00 Yes [id number] 4mg Take 1 tablet by mouth every 8 (eight) hours as needed for Nausea and Vomiting (N/V). [facility] famotidine (PEPCID) 20 mg tablet 08-03 00:00: 00 09-03 04:59 :00 No [id number] 20mg Take 1 tablet by mouth in the morning and 1 tablet in the evening. Do all this for 30 days. [facility] iopamidol (ISOVUE 370-500 mL) injection 100 mL 06-28 07:45: 00 06-28 07:45 :00 No [id number] 100mL 100 mL, Intravenou s, ONCE, 1 dose, On Sun06/28/23 at 0145, Routine [facility] ketorolac (TORADOL) injection 30 mg 06-28 07:00: 00 06-28 06:32 :00 No 30mg 30 mg, Slow IV Push, ONCE, 1 dose, On Sun06/28/23 at 0100, [facility] NaCl 0.9% (NS) bolus infusion 1,000 mL 06-28 07:00: 00 06-28 07:47 :00 No 1000mL at 999 mL/hr, 1,000 mL, IV Infusion, ONCE, 1 dose, On Breanna 06/28/23 at 0100, [facility] ketorolac 10 mg tablet 06-28 00:00: 00 Yes [id number] 10mg Take 1 tablet by mouth every 6 (six) hours as needed for Pain (scale 7-10). [facility] ketorolac (TORADOL) injection 15 mg 06-21 01:45: 00 06-21 01:04 :00 No 15mg 15 mg, Slow IV Push, ONCE, 1 dose, On Sun06/20/23 at 1945, Routine [facility] ibuprofen 800 mg tablet 06-20 00:00: 00 09-06 00:00 :00 No [id number] 800mg Take 1 tablet by mouth every 8 (eight) hours as needed for Pain (scale 1-3). [facility] trazodone HCl (TRAZODONE ORAL) 12-20 22:34: 38 Yes Take by mouth. [facility] Nitrofurant oin&Nit. Macrocryst (MACROBID) 100 mg capsule 12-18 00:00: 00 04-28 00:00 :00 No 100mg Take 1 capsule by mouth in the morning and 1 capsule in the evening. [facility] quetiapine quetiapine No quetiapine [facility] estradiol 0.01% (0.1 mg/gram) vaginal cream Insert 0.5 g 3 times a week by vaginal route for 30 days. estradiol 0.01% (0.1 mg/gram) vaginal cream Insert 0.5 g 3 times a week by vaginal route for 30 days. No .5g Q56H estradiol 0.01% (0.1 mg/gram) vaginal cream Insert 0.5 g 3 times a week by vaginal route for 30 days. [facility] 500 mg capsule Take 1 [...] by transderma l route for 90 days. [facility] progesteron e micronized 200 mg capsule Take 1 capsule every day by oral route at bedtime for 90 days. progesteron e micronized 200 mg capsule Take 1 capsule every day by oral route at bedtime for 90 days. No 1capsul e(s) Q1D progestero ne micronized 200 mg capsule Take 1 capsule every day by oral route at bedtime for 90 days. [facility] Immunizations Ordered Immunization Name Filled Immunization Name Date Status Comments Source RSV, Abrysvo RSV, Abrysvo 2024-12-31 00:00:00 Completed Isabel Seybold - External Tdap- (Boostrix, Adacel) Tdap- (Boostrix, Adacel) 2024-11-11 00:00:00 Completed Isabel Seybold - External Shingles IM (Shingrix) Shingles IM (Shingrix) 2024-11-11 00:00:00 Completed Isabel Seybold - External Td(adult) unspecified formulation Td(adult) unspecified formulation 2015-04-09 00:00:00 Completed Isabel Seybold - External TD, NOS 2015-04-09 00:00:00 Completed [facility] Td(adult) unspecified formulation Unknown Completed Isabel Seybold - External Td(adult) unspecified formulation Unknown Completed Isabel Seybold - External Td(adult) unspecified formulation Unknown Completed Isabel Seybold - External Td(adult) unspecified formulation Unknown Completed Iasbel Seybold - External Td(adult) unspecified formulation Unknown [...] formulation Unknown Completed Isabel Seybold - External TD, NOS Unknown Completed [facility] TD, NOS Unknown Completed [facility] TD, NOS Unknown Completed [facility] TD, NOS Unknown Completed [facility] TD, NOS Unknown Completed [facility] TD, NOS Unknown Completed [facility] TD, NOS Unknown Completed [facility] TD, NOS Unknown Completed [facility] TD, NOS Unknown Completed [facility] Vital Signs Vital Name Observation Time Observation Value Comments S ource Systolic blood pressure 2025-02-24 09:22:00 112 mm[Hg] Isabel Tomlinsono ld - External Diastolic blood pressure 2025-02-24 09:22:00 66 mm[Hg] Isabel Tomlinsono ld - External Heart rate 2025-02-24 09:22:00 97 /min Norma wilkes Seybold - External Body temperature 2025-02-24 09:22:00 36.06 Anjelica Isabel Seybold - External Respiratory rate 2025-02-24 09:22:00 16 /min Isabel ybold - External Body height 2025-02-24 09:22:00 157.5 cm Adriane sarmiento Seybold - External Body weight 2025-02-24 09:22:00 58.514 kg Adriane sarmiento Seybold - External BMI 2025-02-24 09:22:00 23.59 kg/m2 Adriane sarmiento Seybold - External Oxygen saturation in Arterial blood by Pulse oximetry 2025-02-24 09:22:00 100 /min Isabel Quinones ld - External Systolic blood pressure 2025-01-15 08:55:00 118 mm[Hg] Isabel Quinones ld - External Diastolic blood pressure 2025-01-15 08:55:00 82 mm[Hg] Isabel Tomlinsono ld - External Heart rate 2025-01-15 08:55:00 68 /min Norma wilkes Seybsandra - External Body temperature 2025-01-15 08:55:00 36.67 Anjelica Isabel Sewell - External Respiratory rate 2025-01-15 08:55:00 18 /min Isabel Sewell - External Body height 2025-01-15 08:55:00 157.5 cm Adriane Sewell - External Body weight 2025-01-15 08:55:00 58.287 kg Adriane sarmiento Seybold - External BMI 2025-01-15 08:55:00 23.50 kg/m2 Adriane Sewell - External Oxygen saturation in Arterial blood by Pulse oximetry 2025-01-15 08:55:00 99 /min Isabel Quinones ld - External Systolic blood pressure 2025-01-04 17:24:16 130 mm[Hg] [facility] Diastolic blood pressure 2025-01-04 17:24:16 73 mm[Hg] [facility] Heart rate 2025-01-04 17:24:16 65 /min [facility] acute hospital Body temperature 2025-01-04 17:24:16 36.67 Anjelica [facility] Respiratory rate 2025-01-04 17:24:16 16 /min [facility] Oxygen saturation in Arterial blood by Pulse oximetry 2025-01-04 17:24:16 99 /min [facility] Body height 2025-01-04 16:17:00 157.5 cm [facility] Body weight 2025-01-04 16:17:00 54.432 kg [facility] BMI 2025-01-04 16:17:00 21.95 kg/m2 [facility] Systolic blood pressure 2024-12-23 18:48:00 119 mm[Hg] Isabel Tomlinsono ld - External Diastolic blood pressure 2024-12-23 18:48:00 82 mm[Hg] Iasbel Seybo ld - External Heart rate 2024-12-23 [...] External Heart rate 2024-12-10 19:25:00 74 /min Tejase y Seybold - External Body temperature 2024-12-10 [...] Pulse oximetry 2024-12-10 19:25:00 98 /min Isabel Seybo ld - External Systolic blood pressure 2024-10-24 05:00:00 128 mm[Hg] [facility] Diastolic blood pressure 2024-10-24 05:00:00 87 mm[Hg] [facility] Heart rate 2024-10-24 05:00:00 64 /min [facility] acute [facility] Body temperature 2024-10-24 05:00:00 36.5 Anjelica [facility] Respiratory rate 2024-10-24 05:00:00 12 /min [facility] Oxygen saturation in Arterial blood by Pulse oximetry 2024-10-24 05:00:00 97 /min [facility] Body height 2024-10-24 01:11:00 157.5 cm [facility] Body weight 2024-10-24 01:11:00 53.978 kg [facility] BMI 2024-10-24 01:11:00 21.77 kg/m2 [facility] Body height 2024-10-20 18:20:00 157.5 cm Adriane [...] Pulse oximetry 2024-10-03 14:44:00 95 /min Isabel Seybo ld - External Body height 2024-09-29 14:44:00 [...] Systolic blood pressure 2024-09-06 14:17:00 107 mm[Hg] [facility] Diastolic blood pressure 2024-09-06 14:17:00 83 mm[Hg] [facility] Heart rate 2024-09-06 14:17:00 72 /min [facility] Body temperature 2024-09-06 14:17:00 36.94 Anjelica [facility] Respiratory rate 2024-09-06 14:17:00 16 /min [facility] Body height 2024-09-06 14:17:00 157.5 cm [facility] Body weight 2024-09-06 14:17:00 52.164 kg [facility] BMI 2024-09-06 14:17:00 21.03 kg/m2 [facility] Oxygen saturation in Arterial blood by Pulse oximetry 2024-09-06 14:17:00 97 /min [facility] Systolic blood pressure 2024-09-01 16:01:00 112 mm[Hg] Isabel Muñozybo ld - External Diastolic blood pressure 2024-09-01 16:01:00 64 mm[Hg] Isabel Seybo ld - External Heart rate 2024-09-01 16:01:00 82 /min Norma y Seybold - External Body temperature 2024-09-01 16:01:00 36.83 Anjelica Isabel Seybold - External Respiratory rate 2024-09-01 16:01:00 16 /min Isabel Seybold - External Body height 2024-09-01 16:01:00 157.5 cm Adriane ey Seybold - External Body weight 2024-09-01 16:01:00 52.436 kg Adriane ey Seybold - External BMI 2024-09-01 16:01:00 21.14 kg/m2 Adriane ey Seybold - External Oxygen saturation in Arterial blood by Pulse oximetry 2024-09-01 16:01:00 98 /min Isabel Seybo ld - External Body weight 2024-08-18 14:32:00 53.978 kg Adriane ey Seybold - External BMI 2024-08-18 14:32:00 21.77 kg/m2 Adriane ey Seybold - External BP Systolic 2024-08-13 00:00:00 [...] blood pressure 2024-07-21 19:55:00 118 mm[Hg] Isabel Seybo ld - External Diastolic blood pressure 2024-07-21 19:55:00 70 mm[Hg] Isabel Seybo ld - External Heart rate 2024-07-21 19:55:00 74 /min Kelse y Seybold - External Body temperature 2024-07-21 19:55:00 36.78 Anjelica Isabel Seybold - External Respiratory rate 2024-07-21 19:55:00 16 /min Isabel Sewell - External Body height 2024-07-21 19:55:00 157.5 cm Adriane sarmiento Seybold - External Body weight 2024-07-21 19:55:00 52.527 kg Adriane sarmiento Seybold - External BMI 2024-07-21 19:55:00 21.18 kg/m2 Adriane Tomlinsonold - External Oxygen saturation in Arterial blood by Pulse oximetry 2024-07-21 19:55:00 99 /min Isabel Quinones ld - External Body Weight 2024-07-15 00:00:00 112 [lb_av] [facility] BMI (Body Mass Index) 2024-07-15 00:00:00 20.5 kg/m2 [facility] Height 2024-07-15 00:00:00 62 [in_i] [facility] Systolic blood pressure 2024-06-30 00:30:00 105 mm[Hg] [facility] Diastolic blood pressure 2024-06-30 00:30:00 86 mm[Hg] [facility] Heart rate 2024-06-30 00:30:00 82 /min [facility] acute [facility] Respiratory rate 2024-06-30 00:30:00 19 /min [facility] Oxygen saturation in Arterial blood by Pulse oximetry 2024-06-30 00:30:00 96 /min [facility] Body temperature 2024-06-29 20:16:00 37.11 Anjelica [facility] Body height 2024-06-29 20:16:00 157.5 cm [facility] Body weight 2024-06-29 20:16:00 54.432 kg [facility] BMI 2024-06-29 20:16:00 21.95 kg/m2 [facility] Height 2024-06-18 00:00:00 62 [in_i] [facility] BP Systolic 2024-06-18 00:00:00 96 mm[Hg] [facility] BP Diastolic 2024-06-18 00:00:00 61 mm[Hg] [facility] Body Weight 2024-06-18 00:00:00 119.6 [lb_av] [facility] BMI (Body Mass Index) 2024-06-18 00:00:00 21.9 kg/m2 [facility] Body weight 2024-06-16 20:41:00 55.339 kg Adriane ey Seybold - External BMI 2024-06-16 20:41:00 22.31 kg/m2 Adriane ey Seybold - External Oxygen saturation in Arterial blood by Pulse oximetry 2024-06-16 20:41:00 96 /min Isabel Seybo ld - External Systolic blood pressure 2024-06-16 20:41:00 115 mm[Hg] Isabel Seybo ld - External Diastolic blood pressure 2024-06-16 20:41:00 72 mm[Hg] Isabel Seybo ld - External Heart rate 2024-06-16 20:41:00 70 /min Kel y Seybold - External Body temperature 2024-06-16 20:41:00 36.94 Anjelica Isabel Seybold - External Respiratory rate 2024-06-16 20:41:00 15 /min Isabel Seybold - External Body height 2024-06-16 20:41:00 157.5 cm Adriane ey Seybold - External Systolic blood pressure 2024-05-05 16:26:00 119 mm[Hg] [facility] Diastolic blood pressure 2024-05-05 16:26:00 79 mm[Hg] [facility] Heart rate 2024-05-05 16:26:00 70 /min [facility] 2024-05-05 16:26:00 36.72 Anjelica [facility] Respiratory rate 2024-05-05 16:26:00 18 /min [facility] Body height 2024-05-05 16:26:00 157.5 cm [facility] Body weight 2024-05-05 16:26:00 53.298 kg [facility] BMI 2024-05-05 16:26:00 21.49 kg/m2 [facility] Oxygen saturation in Arterial blood by Pulse oximetry 2024-05-05 16:26:00 99 /min [facility] BMI (Body Mass Index) 2024-04-30 00:00:00 21.9 kg/m2 [facility] Height 2024-04-30 00:00:00 62 [in_i] [facility] BP Systolic 2024-04-30 00:00:00 113 mm[Hg] [facility] BP Diastolic 2024-04-30 00:00:00 73 mm[Hg] [facility] Body Weight 2024-04-30 00:00:00 119.6 [lb_av] [facility] Systolic blood pressure 2024-04-28 21:05:00 100 mm[Hg] [facility] Diastolic blood pressure 2024-04-28 21:05:00 65 mm[Hg] [facility] Heart rate 2024-04-28 21:05:00 75 /min [facility] Body temperature 2024-04-28 21:05:00 36.94 Anjelica [facility] Body height 2024-04-28 21:05:00 157.5 cm [facility] Body weight 2024-04-28 21:05:00 53.524 kg [facility] BMI 2024-04-28 21:05:00 21.58 kg/m2 [facility] Oxygen saturation in Arterial blood by Pulse oximetry 2024-04-28 21:05:00 97 /min [facility] BP Systolic 2024-04-03 00:00:00 120 mm[Hg] [facility] Height 2024-04-03 00:00:00 62 [in_i] [facility] Body Weight 2024-04-03 00:00:00 114 [lb_av] [facility] BMI (Body Mass Index) 2024-04-03 00:00:00 20.9 kg/m2 [facility] BP Diastolic 2024-04-03 00:00:00 82 mm[Hg] [facility] Systolic blood pressure 2024-04-02 23:20:00 129 mm[Hg] [facility] Diastolic blood pressure 2024-04-02 23:20:00 77 mm[Hg] [facility] Heart rate 2024-04-02 23:20:00 88 /min [facility] Body temperature 2024-04-02 23:20:00 36.61 Anjelica [facility] Respiratory rate 2024-04-02 23:20:00 18 /min [facility] Oxygen saturation in Arterial blood by Pulse oximetry 2024-04-02 23:20:00 99 /min [facility] Body height 2024-04-02 18:16:00 157.5 cm [facility] Body weight 2024-04-02 18:16:00 52.164 kg [facility] BMI 2024-04-02 18:16:00 21.03 kg/m2 [facility] Systolic blood pressure 2024-03-26 04:00:00 140 mm[Hg] [facility] Diastolic blood pressure 2024-03-26 04:00:00 96 mm[Hg] [facility] Heart rate 2024-03-26 04:00:00 72 /min [facility] Body temperature 2024-03-26 04:00:00 36.83 Anjelica [facility] Respiratory rate 2024-03-26 04:00:00 17 /min [facility] Oxygen saturation in Arterial blood by Pulse oximetry 2024-03-26 04:00:00 94 /min [facility] Body height 2024-03-26 00:20:00 157.5 cm [facility] Body weight 2024-03-26 00:20:00 52.164 kg [facility] BMI 2024-03-26 00:20:00 21.03 kg/m2 [facility] BP Diastolic 2024-03-20 00:00:00 79 mm[Hg] [facility] Height 2024-03-20 00:00:00 62 [in_i] [facility] BMI (Body Mass Index) 2024-03-20 00:00:00 20.9 kg/m2 [facility] Body Weight 2024-03-20 00:00:00 114 [lb_av] [facility] BP Systolic 2024-03-20 00:00:00 115 [...] Systolic blood pressure 2024-01-19 03:09:00 121 mm[Hg] [facility] Diastolic blood pressure 2024-01-19 03:09:00 104 mm[Hg] [facility] Heart rate 2024-01-19 03:09:00 65 /min [facility] Respiratory rate 2024-01-19 03:09:00 15 /min [facility] Oxygen saturation in Arterial blood by Pulse oximetry 2024-01-19 03:09:00 97 /min [facility] Body temperature 2024-01-18 22:21:00 37.28 Anjelica [facility] Body height 2024-01-18 22:21:00 157.5 cm [facility] Body weight 2024-01-18 22:21:00 51.256 kg [facility] BMI 2024-01-18 22:21:00 20.67 kg/m2 [facility] Systolic blood pressure 2023-12-18 17:30:00 108 mm[Hg] [facility] Diastolic blood pressure 2023-12-18 17:30:00 79 mm[Hg] [facility] Heart rate 2023-12-18 17:30:00 62 /min [facility] Body temperature 2023-12-18 17:30:00 36.89 Anjelica [facility] Oxygen saturation in Arterial blood by Pulse oximetry 2023-12-18 17:30:00 96 /min [facility] Respiratory rate 2023-12-18 16:30:00 18 /min [facility] Body height 2023-12-18 15:31:00 157.5 cm [facility] Body weight 2023-12-18 15:31:00 49.896 kg [facility] BMI 2023-12-18 15:31:00 20.12 kg/m2 [facility] Systolic blood pressure 2023-09-29 03:39:00 125 mm[Hg] [facility] Diastolic blood pressure 2023-09-29 03:39:00 86 mm[Hg] [facility] Heart rate 2023-09-29 03:39:00 68 /min [facility] Respiratory rate 2023-09-29 03:39:00 16 /min [facility] Oxygen saturation in Arterial blood by Pulse oximetry 2023-09-29 03:39:00 98 /min [facility] Body temperature 2023-09-29 01:15:00 36.72 Anjelica [facility] Body height 2023-09-29 01:15:00 157.5 cm [facility] Body weight 2023-09-29 01:15:00 52.164 kg [facility] BMI 2023-09-29 01:15:00 21.03 kg/m2 [facility] Systolic blood pressure 2023-08-04 07:35:00 110 mm[Hg] [facility] Diastolic blood pressure 2023-08-04 07:35:00 77 mm[Hg] [facility] Heart rate 2023-08-04 07:35:00 69 /min [facility] Respiratory rate 2023-08-04 07:35:00 16 /min [facility] Oxygen saturation in Arterial blood by Pulse oximetry 2023-08-04 07:35:00 96 /min [facility] Body temperature 2023-08-04 05:03:00 36.78 Anjelica [facility] Body weight 2023-08-04 01:38:00 52.164 kg [facility] BMI 2023-08-04 01:38:00 21.03 kg/m2 [facility] Systolic blood pressure 2023-06-28 07:00:00 130 mm[Hg] [facility] Diastolic blood pressure 2023-06-28 07:00:00 96 mm[Hg] [facility] Heart rate 2023-06-28 07:00:00 72 /min [facility] Body temperature 2023-06-28 07:00:00 37.17 Anjelica [facility] Respiratory rate 2023-06-28 07:00:00 16 /min [facility] Oxygen saturation in Arterial blood by Pulse oximetry 2023-06-28 07:00:00 99 /min [facility] Body height 2023-06-28 06:07:00 157.5 cm [facility] Body weight 2023-06-28 06:07:00 54.432 kg [facility] BMI 2023-06-28 06:07:00 21.95 kg/m2 [facility] Systolic blood pressure 2023-06-21 01:07:11 101 mm[Hg] [facility] Diastolic blood pressure 2023-06-21 01:07:11 72 mm[Hg] [facility] Heart rate 2023-06-21 01:07:11 76 /min [facility] Body temperature 2023-06-21 01:07:11 37.06 Anjelica [facility] Respiratory rate 2023-06-21 01:07:11 16 /min [facility] Oxygen saturation in Arterial blood by Pulse oximetry 2023-06-21 01:07:11 98 /min [facility] Body height 2023-06-20 22:50:00 157.5 cm [facility] Body weight 2023-06-20 22:50:00 54.432 kg [facility] BMI 2023-06-20 22:50:00 21.95 kg/m2 [facility] Systolic blood pressure 2024-04-28 21:05:00 100 mm[Hg] [facility] Diastolic blood pressure 2024-04-28 21:05:00 65 mm[Hg] [facility] Heart rate 2024-04-28 21:05:00 75 /min [facility] Body temperature 2024-04-28 21:05:00 36.94 Anjelica [facility] Body height 2024-04-28 21:05:00 157.5 cm [facility] Body weight 2024-04-28 21:05:00 53.524 kg [facility] BMI 2024-04-28 21:05:00 21.58 kg/m2 [facility] Oxygen saturation in Arterial blood by Pulse oximetry 2024-04-28 21:05:00 97 /min [facility] Respiratory rate 2024-04-02 23:20:00 18 /min [facility] Procedures Procedure Date / Time Performed Performing Clinician Source US NECK & HEAD 2025-02-24 00:00:00 Isabel Sewell - External CBC WITH DIFFERENTIAL 2025-02-24 00:00:00 Isabel Sewell - External COMP. METABOLIC PANEL (14) 2025-02-24 00:00:00 Isabel Sewell - External URINALYSIS 2024-10-24 02:55:00 Yuly Saucedo [facility] CT ABDOMEN PELVIS W CONTRAST 2024-10-24 02:22:16 Yuly Saucedo [facility] LIPASE 2024-10-24 01:47:00 Yuly Saucedo [facility] TROPONIN I 2024-10-24 01:47:00 Yuly Saucedo [facility] COMP. METABOLIC PANEL (16942) 2024-10-24 01:47:00 Yuly Saucedo [facility] CBC WITH DIFF 2024-10-24 01:47:00 Yuly Saucedo [facility] N-TERMINAL PRO-BNP 2024-10-24 01:47:00 Yuly Deleon [facility] XR ANKLE 3+ VW LEFT 2024-09-06 15:15:18 Daniela Norris [facility] CT, abdomen + pelvis, w/ contrast 2024-07-24 00:00:00 [facility] CT, abdomen + pelvis, w/wo contrast 2024-07-18 00:00:00 [facility] CT, abdomen + pelvis, w/ contrast 2024-07-15 00:00:00 [facility] CHANGE DRAINAGE DEVICE IN PELVIC CAVITY, EXTERNAL 2024-07-04 00:00:00 KYRPO [facility] DRAINAGE OF VAGINA WITH DRAINAGE DEVICE, PERC APPR 2024-07-01 00:00:00 KUMSA.02 [facility] DRAINAGE OF PELVIC CAVITY WITH DRAIN DEV, PERC KIMI 2024-07-01 00:00:00 KUMSA.02 [facility] INSERTION OF INFUSION DEVICE INTO UPPER VEIN, PERC 2024-06-30 00:00:00 KUMSA.[address] [facility] [address] ABDOMEN PELVIS W CONTRAST 2024-06-29 21:51:47 AuYuly la [facility] LIPASE 2024-06-29 20:47:00 Yuly Saucedo [facility] COMP. METABOLIC PANEL (62824) 2024-06-29 20:47:00 Yuly Saucedo [facility] CBC WITH DIFF 2024-06-29 20:47:00 Yuly Saucedo [facility] Laparoscopic Hysterectomy 2024-06-23 00:00:00 [facility] Medical MAMMO, diagnostic, digital, bilateral 2024-04-30 00:00:00 [facility] Medical US, breast, unilateral 2024-04-30 00:00:00 [facility] POCT URINALYSIS 2024-04-28 22:14:00 Paresh Curiel [facility] POCT URINALYSIS 2024-04-28 22:14:00 Paresh Curiel [facility] MAMMO, diagnostic, digital, bilateral 2024-04-23 00:00:00 [facility] Medical US, breast, bilateral 2024-04-23 00:00:00 [facility] US, breast, unilateral 2024-04-03 00:00:00 [facility] RAPID STREP SCREEN FOR GROUP A 2024-04-02 18:57:00 Yuly Saucedo [facility] INFLUENZA A/B RSV COVID NAAT 2024-04-02 18:57:00 Yuly Saucedo [facility] INFLUENZA A/B RSV COVID NAAT 2024-04-02 18:57:00 Yuly Saucedo [facility] RAPID STREP SCREEN FOR GROUP A 2024-04-02 18:57:00 Yuly Saucedo [facility] THROAT CULTURE 2024-04-02 18:57:00 Yuly Saucedo [facility] LAB ONLY COVID INTERPRETATION 2024-04-02 18:57:00 Yuly Saucedo [facility] US OVARY TORSION 2024-03-26 03:17:59 Jona Granados [facility] US OVARY TORSION 2024-03-26 03:17:59 Jona Granados [facility] CT ABDOMEN PELVIS W CONTRAST 2024-03-26 01:27:33 Jona Granados [facility] CT ABDOMEN PELVIS W CONTRAST 2024-03-26 01:27:33 Jona Granados [facility] BASIC METABOLIC PANEL (NA, K, CL, CO2, GLUCOSE, BUN, CREATININE, CA) 2024-03-26 00:48:00 Jona Granados [facility] CBC WITH DIFF 2024-03-26 00:48:00 Jona Granados [facility] CBC WITH DIFF 2024-03-26 00:48:00 Jona Granados [facility] BASIC METABOLIC PANEL (NA, K, CL, CO2, GLUCOSE, BUN, CREATININE, CA) 2024-03-26 00:48:00 Jona Granados [facility] URINALYSIS 2024-03-26 00:45:00 Jona Granados [facility] POCT TEST 2024-03-26 00:45:00 Jona Granados [facility] URINALYSIS 2024-03-26 00:45:00 Jona Granados [facility] POCT TEST 2024-03-26 00:45:00 Jona Granados [facility] US TRANSVAGINAL 2024-01-24 00:00:[address] ABDOMEN PELVIS W CONTRAST 2024-01-19 01:54:58 Caren Johnston [facility] LIPASE 2024-01-19 01:21:00 Caren Johnston [facility] COMP. METABOLIC PANEL ([id number]) 2024-01-19 01:21:00 Caren Johnston [facility] CBC WITH DIFF 2024-01-19 01:20:00 Caren Johnston [facility] URINALYSIS 2024-01-18 22:34:00 Caren [facility] POCT TEST 2024-01-18 22:34:00 Agueda Johnston [facility] CT LUMBAR SPINE WO CONTRAST 2023-12-18 16:46:32 Sina Serjio [facility] CT ABDOMEN PELVIS WO CONTRAST 2023-12-18 16:32:00 Sina Serjio [facility] COMP. METABOLIC PANEL (52231) 2023-12-18 16:22:00 Serjio Andino [facility] CBC WITH DIFF 2023-12-18 16:22:00 Serjio Andino [facility] POCT TEST 2023-12-18 15:46:00 Jennifer Andino [facility] URINALYSIS 2023-12-18 15:45:00 Serjio Andino [facility] LIPASE 2023-08-04 05:13:00 Rich Montilla [facility] TEST, SERUM 2023-08-04 05:13:00 Uyen Montilla [facility] COMP. METABOLIC PANEL (67018) 2023-08-04 05:13:00 Kossendy [facility] CBC WITH DIFF 2023-08-04 05:12:00 Kojo [facility] US GALL BLADDER 2023-08-04 02:59:30 Kosfritz [facility] URINALYSIS 2023-08-04 02:31:00 [facility] CONSENT/REFUSAL FOR DIAGNOSIS AND TREATMENT 2023-08-04 01:36:23 Doctor Unassigned, [place] [facility] COMP. METABOLIC PANEL (30310) 2023-06-28 06:30:00 Lee Jett [facility] CBC WITH DIFF 2023-06-28 06:30:00 [facility] 2023-06-28 06:30:00 [facility]ett [facility] URINE DRUG (IMMUNOASSAY) - COMPREHENSIVE DRUG SCREEN W/O REFLEX 2023-06-28 06:30:00 Lee Jett [facility] CONSENT/REFUSAL FOR DIAGNOSIS AND TREATMENT 2023-06-28 05:58:09 Doctor Unassigned, [place] [facility] PELVIS COMPLETE WITH TRANSVAGINAL 2023-06-21 00:41:20 Aroldo Yesenia [facility] POCT TEST 2023-06-21 00:10:00 Lashawn Kendrick [facility] COMP. METABOLIC PANEL (14372) 2023-06-21 00:01:00 Yesenia Kendrick [facility] CBC WITH DIFF 2023-06-21 00:01:00 [facility] 2023-06-21 00:01:00 Yesenia Kendrick [facility] NOTICE OF PRIVACY PRACTICES 2023-06-20 22:47:12 Doctor Unassigned, [place] [facility] CONSENT/REFUSAL FOR DIAGNOSIS AND TREATMENT 2023-06-20 22:46:00 Doctor Unassigned, [place] [facility] Cholecystectomy 2009-06-04 00:00:00 [facility] Ligation of Fallopian Tube 1999-06-04 00:00:00 [facility] 1992-06-04 00:00:00 [facility] Plan of Care Planned Activity Planned Date Details Comments Source Encounters Start Date/Time End Date/Time Encounter Type Admission Type Attending [facility] Care Department Encounter ID Source 2025-06-17 08:45:00 2025-06-17 08:45:00 Outpatient AKIL MENDEZ [id number] [facility] 2025-06-15 10:00:00 2025-06-15 10:00:00 Outpatient AKIL MENDEZ [id number] [facility] 2025-04-21 14:00:00 2025-04-21 14:00:00 Outpatient MARY GOODMAN [id number] [facility] 2025-03-24 11:15:00 2025-03-24 11:15:00 Outpatient AKIL MENDEZ [id number] [facility] 2025-03-23 12:30:00 2025-03-23 12:30:00 Outpatient ISABEL AUSITN [id number] [facility] 2025-02-24 11:00:00 2025-02-24 11:00:00 Outpatient GUSTABO SOLIZ [id number] [facility] 2025-02-24 10:00:00 2025-02-24 10:00:00 Outpatient [id number] ISABEL AUSTIN [id number] [facility] 2025-02-24 09:30:00 2025-02-24 09:30:00 Outpatient AKIL MENDEZ [id number] [facility] 2025-02-24 00:00:00 2025-02-24 00:00:00 Outpatient AKIL MENDEZ ISABEL AUSTIN [id number] [facility]25-02-20 00:00:00 2025-02-20 00:00:00 Outpatient MD ISABEL GARCIA [id number] [facility] 2025-02-20 00:00:00 2025-02-20 00:00:00 Outpatient SOLIZGUSTABO MTZ ISABEL AUSTIN [id number] [facility] 2025-02-19 00:00:00 2025-02-19 00:00:00 Outpatient AKIL MENDEZ ISABEL AUSTIN [id number] [facility] 2025-02-18 00:00:00 2025-02-18 00:00:00 Outpatient CHET GOODMANAdalberto AUSTIN [id number] [facility] 2025-02-14 00:00:00 2025-02-14 00:00:00 Outpatient ISABEL AUSTIN [id number] [facility] 2025-02-13 16:00:00 2025-02-13 16:00:00 Outpatient MARY GOODMAN ISABEL AUSTIN [id number] [facility] 2025-02-13 14:00:00 2025-02-13 14:00:00 Outpatient WYATT OSULLIVAN ISABEL AUSTIN [id number] [facility] 2025-02-10 00:00:00 2025-02-10 00:00:00 Outpatient AKIL MENDEZ ISABEL AUSTIN [id number] [facility] 2025-02-10 00:00:00 2025-02-10 00:00:00 Outpatient SOLIZGUSTABO MTZ ISABEL AUSTIN [id number] [facility] 2025-01-29 08:15:00 2025-01-29 08:15:00 Outpatient ISABEL AUSTIN [id number] [facility] 2025-01-29 00:00:00 2025-01-29 00:00:00 Outpatient MD ISABEL GARCIA [id number] [facility] 2025-01-27 00:00:00 2025-01-27 00:00:00 Outpatient ISABEL [facility]EL [id number] [facility] 2025-01-19 11:30:00 2025-01-19 11:30:00 Outpatient GUSTABO SOLIZ ISABEL [id number] [facility] 2025-01-16 00:00:00 2025-01-16 00:00:00 Outpatient GUSTABO SOLIZ ISABEL [id number] [facility] 2025-01-15 09:00:00 2025-01-15 09:00:00 Outpatient GUSTABO SOLIZ ISABEL [id number] [facility] 2025-01-15 00:00:00 2025-01-15 00:00:00 Outpatient ISABEL AUSTIN [id number] [facility] 2025-01-13 12:30:00 2025-01-13 12:30:00 Outpatient ISABEL AUSTIN [id number] [facility] 2025-01-10 00:00:00 2025-01-10 00:00:00 Outpatient MONAE HOYOS ISABEL AUSTIN [id number] [facility] 2025-01-10 00:00:00 2025-01-10 00:00:00 Outpatient SIMA JAMMIE [facility]ABEL AUSTIN [id number] [facility] 2025-01-04 11:19:00 2025-01-04 12:29:00 Emergency X SERJIO ANDINO [facility] [id number] [facility] 2024-12-30 00:00:00 2024-12-30 00:00:00 Outpatient MD ISABEL GARCIA [id number] [facility] 2024-12-23 13:45:00 2024-12-23 13:45:00 Outpatient KAYLAH CLARKE [id number] [facility] 2024-12-22 14:30:00 2024-12-22 14:30:00 Outpatient BEBE PACHECO [id number] [facility] 2024-12-19 00:00:00 2024-12-19 00:00:00 Outpatient PREAKIL LANTIGUA ISABEL [id number] [facility] 2024-12-19 00:00:00 2024-12-19 00:00:00 Outpatient PREAKIL LANTIGUA ISABEL [id number] [facility] 2024-12-18 08:15:00 2024-12-18 08:15:00 Outpatient PREZASAKIL ISABEL [id number] [facility] 2024-12-18 00:00:00 2024-12-18 00:00:00 Outpatient YANGZAAKIL Flowers ISABEL [id number] [facility] 2024-12-16 11:05:00 2024-12-16 11:05:00 Outpatient ISABEL ISABEL [id number] [facility] 2024-12-10 14:30:00 2024-12-10 14:30:00 Outpatient CONSTANZA GUSTABO ISABEL AUSTIN [id number] [facility] 2024-10-29 00:00:00 2024-11-29 18:21:40 Patient Secure Msg Doctor Unassigned, [place] Doctor Unassigned, [place] [facility] [id number] [id number] [id number] [facility] 2024-11-28 12:30:00 2024-11-28 12:30:00 Outpatient RADHA QUINTANA [facility] [id number] [facility] 2024-11-24 00:00:00 2024-11-24 00:00:00 Outpatient AKIL MENDEZ ISABEL [id number] [facility] 2024-11-14 14:30:00 2024-11-14 14:30:00 Outpatient AKIL MENDEZ ISABEL [id number] [facility] 2024-11-06 00:00:00 2024-11-06 00:00:00 Outpatient ISABEL AUSTIN [id number] [facility] 2024-10-29 13:18:36 2024-10-29 13:18:36 Outpatient SFA SFA [id number] Josef Leslie 2024-10-23 20:07:00 2024-10-24 00:21:00 Emergency X MIKIFDERFRANSISCA , YULY AUFDERFRANSISCA , YULY [facility] ERT [id number] [facility] 2024-10-24 00:00:00 2024-10-24 00:00:00 Outpatient AKIL MENDEZ ISABEL AUSTIN [id number] [facility] 2024-10-20 13:10:00 2024-10-20 13:10:00 Outpatient ELYSIABUCKYTYREEILIANA AUSTIN [id number] [facility] 2024-10-18 00:00:00 2024-10-18 00:00:00 Outpatient AKIL MENDEZ ISABEL AUSTIN [id number] [facility] 2024-10-14 13:10:00 2024-10-14 13:10:00 Outpatient ELYSIABUCKYTYREEILIANA AUSTIN [id number] [facility] 2024-10-14 10:40:00 2024-10-14 10:40:00 Outpatient ELYSIABUCKYTYREEILIANA AUSTIN [id number] [facility] 2024-10-13 10:30:00 2024-10-13 10:30:00 Outpatient AKIL MENDEZ ISABEL AUSTIN [id number] [facility] 2024-10-10 00:00:00 2024-10-10 00:00:00 Outpatient MD ISABEL GARCIA [id number] [facility] 2024-10-09 00:00:00 2024-10-09 00:00:00 Outpatient BEBE PACHECO [id number] [facility] 2024-10-08 00:00:00 2024-10-08 00:00:00 Saulo Montenegro MD: [address] [place] [address] S, [facility] [address], [place] [address] , Ph. Formerly [facility] - GC_GCBZW_[facility]* [id number] [facility] 2024-10-03 09:30:00 2024-10-03 09:30:00 Outpatient BEBE PACHECO ISABEL AUSTIN [id number] [facility] 2024-10-02 00:00:00 2024-10-02 00:00:00 Outpatient IBRAHIMKVNG AMOR ISABEL AUSTIN [id number] [facility] 2024-10-01 00:00:00 2024-10-01 00:00:00 Outpatient MD ISABEL GARCIA [id number] [facility] 2024-10-01 00:00:00 2024-10-01 00:00:00 Outpatient SHARMINAKIL Flowers ISABEL AUSTIN [id number] [facility] 2024-10-01 00:00:00 2024-10-01 00:00:00 Outpatient KVNG IBRAHIM ISABEL AUSTIN [id number] [facility] 2024-09-29 09:50:00 2024-09-29 09:50:00 Outpatient TYREE NAIDU ISABEL AUSTIN [id number] [facility] 2024-09-15 14:37:12 2024-09-15 14:37:12 Outpatient SFA SFA [id number] Josef Leslie 2024-09-10 00:00:00 2024-09-10 00:00:00 TIMMY Abdullahi: [address], [facility] [address], [place] [address] , Ph. [facility] - [facility]GCBZW_[facility]* [id number] [facility] 2024-09-06 09:19:00 2024-09-06 12:31:00 Emergency X JAQUI NORRIS [facility] ERT [id number] [facility] 2024-09-06 09:19:00 2024-09-06 12:31:00 Emergency Ja[facility] [id number] 350.1.13.10 4.2.7.2.686 [id number] [facility] 2024-09-01 11:00:00 2024-09-01 11:00:00 Outpatient PREZAAKIL Flowers ISABEL AUSTIN [id number] [facility] 2024-08-18 09:20:00 2024-08-18 09:20:00 Outpatient ELYSIATYREE OLEA ISABEL AUSTIN [id number] [facility] 2024-08-18 09:15:00 2024-08-18 09:15:00 Outpatient ISABEL AUSTIN [id number] [facility] 2024-08-15 00:00:00 2024-08-15 00:00:00 Outpatient ELYSIATYREE ISABEL AUSTIN [id number] [facility] 2024-08-13 00:00:00 2024-08-13 00:00:00 TIMMY Abdullahi: [address], [place] [address], [place] [address] , Ph. [facility] - GC_GCBZW_[facility]* [id number] [facility] 2024-08-11 00:00:00 2024-08-11 00:00:00 Outpatient PREZAAKIL Flowers ISABEL AUSTIN [id number] [facility] 2024-08-05 00:00:00 2024-08-05 00:00:00 Outpatient PREZAAKIL Flowers ISABEL AUSTIN [id number] [facility] 2024-08-04 00:00:00 2024-08-04 00:00:00 Outpatient AKIL MENDEZ ISABEL AUSTIN [id number] [facility] 2024-07-29 09:05:00 2024-07-29 09:05:00 Outpatient BILLIE Suma Rosario [facility] [id number] [facility] 2024-07-29 06:25:00 2024-07-29 06:25:00 Outpatient Saulo Fonseca HCAPM RADI [id number] [facility] 2024-07-29 00:00:00 2024-07-29 00:00:00 Saulo Montenegro MD: [address], [address], [place] [id number] , Ph. [facility] - GC_GCBZW_[facility]* [id number] [facility] 2024-07-25 11:45:00 2024-07-25 11:45:00 Outpatient ISABEL AUSTIN [id number] [facility] 2024-07-21 14:00:00 2024-07-21 14:00:00 Outpatient AKIL MENDEZ [id number] [facility] 2024-07-16 00:00:00 2024-07-16 00:00:00 Outpatient AKIL MENDEZ [id number] [facility] 2024-07-15 00:00:00 2024-07-15 00:00:00 Saulo Montenegro MD: [address], [place] [phone] , Ph. [facility] - GC[facility]GCBZW_[facility]* [id number] [facility] 2024-07-14 12:00:00 2024-07-14 12:00:00 Outpatient LAB90 ISABEL AUSTIN [id number] [facility] 2024-07-11 08:07:00 2024-07-11 08:07:00 Outpatient BILLIE CurtSuma pinto HCAPM RADI [id number] [facility] 2024-06-29 20:29:00 2024 15:29:00 Inpatient EM Levon Hurley HCAPM MEDI.01 [id number] 49 [facility] 2024-06-30 00:17:00 2024-06-30 00:17:00 Outpatient Levon Hurley HCACL LABO [id number] [facility] 2024-06-30 00:00:00 2024-06-30 00:00:00 Outpatient AKIL MENDEZ [id number] [facility] 2024-06-29 14:14:00 2024-06-29 18:38:00 Emergency X KAILYNERFRANSISCA , YULY VERMA [facility] ERT [id number] [facility] 2024-06-29 14:14:00 2024-06-29 18:38:00 Emergency KailynerYuly chacon [facility] [id number] 350.1.13.10 4.2.7.2.686 [id number] [facility] 2024-06-19 00:00:00 2024-06-27 08:50:50 Telephone Deborahsal Paresh [facility] [id number] 350.1.13.10 4.2.7.2.686 [id number] [facility] 2024-06-23 08:39:00 2024-06-23 08:39:00 Outpatient Saulo Fonseca [facility] ROBI [id number] 63 [facility] 2024-06-18 00:00:00 2024-06-18 00:00:00 Arlen Hare, PROPERTY MANAGEMENT ACCOUNTANT: [address] [place], [place] [address], [place] [address] , Ph. [facility] - GC[facility]GCBZW_[facility]* [id number] [facility] 2024-06-17 09:05:00 2024-06-17 09:05:00 Outpatient LAB90 ISABEL AUSTIN [id number] [facility] 2024-06-17 00:00:00 2024-06-17 00:00:00 Outpatient DANDRE JOHANSEN [id number] [facility] 2024-06-17 00:00:00 2024-06-17 00:00:00 Outpatient AKIL MENDEZ [id number] [facility] 2024-06-16 15:35:00 2024-06-16 15:35:00 Outpatient LAB90 ISABEL AUSTIN [id number] [facility] 2024-06-16 14:30:00 2024-06-16 14:30:00 Outpatient AKIL MENDEZ [id number] Isabel Muñ[facility]diogen[facility]andra 2024-06-10 00:00:00 2024-06-10 00:00:00 Outpatient SAULO HUDDLESTON [facility] [id number] [facility] 2024-05-26 00:00:00 2024-05-30 10:34:01 Telephone Paresh Curiel [facility] 1.2840.114 350.1.13.10 4.2.7.2.686 [id number] [facility] 2024-05-22 00:00:00 2024-05-23 15:55:04 Telephone Paresh Curiel [facility] 1.840.114 350.1.13.10 4.2.7.2.686 [id number] [facility] 2024-05-05 13:19:05 2024-05-05 13:19:05 Outpatient SFA [facility] [id number] Josef Alas Anuj 2024-05-05 10:30:00 2024-05-05 10:51:29 Outpatient R PARESH CURIEL [facility] [id number] [facility] 2024-05-05 10:30:00 2024-05-05 10:51:29 Office Visit Paresh Curiel [facility] 1.20.114 350.1.13.10 4.2.7.2.686 [id number] [facility] 2024-04-30 00:00:00 2024-04-30 10:16:07 Nurse Triage Sherri Hall Tina M [facility] 1.840.114 350.1.13.10 4.2.7.2.686 [id number] [facility] 2024-04-30 00:00:00 2024-04-30 00:00:00 Arlen Hare, PROPERTY MANAGEMENT ACCOUNTANT: [address], [place] [address], [place] [address] , Ph. [facility] - [facility]_GCBZW_[place] [facility]* [id number] [facility] 2024-04-29 07:30:00 2024-04-29 07:30:00 Outpatient PARESH PAREDES [facility] [id number] [facility] 2024-04-28 16:45:00 2024-04-28 16:45:00 Ux Researcher Visit Paresh Curiel Lab, Ang - Db 1.2.840.1 [id number] 3.104.2.7 .[id number] [facility] 2024-04-28 15:00:00 2024-04-28 15:50:34 Outpatient PARESH PAREDES [facility] [id number] [facility] 2024-04-28 15:00:00 2024-04-28 15:50:34 Office Visit Paresh Curiel 1.2.840.1 [id number] 3.104.2.7 .[id number] [facility] 2024-04-28 00:00:00 2024-04-28 00:00:00 Travel 1.2.840.1 22186.1.1 3.104.2.7 .3.662954 .8 1.2.840.114 350.1.13.10 4.2.7.3.698 084.8 [id number] [facility] 2024-04-21 09:00:00 2024-04-21 09:00:00 Outpatient PARESH PAREDES [facility] [id number] [facility] 2024-04-17 10:00:00 2024-04-17 10:00:00 Outpatient ANA CRISTINA REDD [facility] [id number] [facility] 2024-04-17 00:00:00 2024-04-17 09:21:02 Telephone Ana Cristina Raymond A 1.2.840.1 00269.1.1 3.104.2.7 .3.624560 .8 [id number] [facility] 2024-04-17 00:00:00 2024-04-17 00:00:00 Travel 1.2.840.1 34797.1.1 3.104.2.7 .3.149021 .8 1.2.840.114 350.1.13.10 4.2.7.3.698 084.8 [id number] [facility] 2024-04-15 00:00:00 2024-04-15 10:02:16 Telephone Pcp, Patient Does Not Have A 1.2.840.1 65915.1.1 3.104.2.7 .3.940391 .8 [id number] [facility] 2024-04-03 00:00:00 2024-04-03 00:00:00 Ashely Drew, PROPERTY MANAGEMENT ACCOUNTANT: [address] [place] [address] Dr [address], [place] [address], [place] [address] , Ph. Formerly [facility] - GC_GCBZW_[facility]* [id number] [facility] 2024-04-02 13:18:00 2024-04-02 18:26:00 Emergency X YULY SAUCEDO ERIN [facility] ERT [id number] [facility] 2024-04-02 13:18:00 2024-04-02 18:26:00 Emergency Yuly Saucedo 1.2.840.1 83280.1.1 3.104.2.7 .3.707162 .8 [id number] [facility] 2024-04-02 00:00:00 2024-04-02 00:00:00 Travel 1.2.840.1 19260.1.1 3.104.2.7 .3.716546 .8 1.2.840.114 350.1.13.10 4.2.7.3.698 084.8 [id number] [facility] 2024-03-25 19:24:00 2024-03-25 23:06:00 Emergency X ROBERTA, STEFANIAA YOKENZIE, ERSHAWNA [facility] ERT [id number] [facility] 2024-03-25 19:24:00 2024-03-25 23:06:00 Emergency Jona Granados D 1.2.840.1 84796.1.1 3.104.2.7 .3.451336 .8 [id number] [facility] 2024-03-25 00:00:00 2024-03-25 00:00:00 Travel 1.2.840.1 33173.1.1 3.104.2.7 .3.888358 .8 1.2.840.114 350.1.13.10 4.2.7.3.698 084.8 [id number] [facility] 2024-03-20 00:00:00 2024-03-20 00:00:00 Saulo Montenegro MD: [address], [address], [place] [phone] , Ph. [facility] GC_GCBZW_[facility]* [id number] [facility] 2024-03-06 00:00:00 2024-03-06 00:00:00 JUAN Hobbs: [address], [place] [phone] , Ph. [facility] - GC_GCBZW_[facility]* [id number] [facility] 2024-02-21 00:00:00 2024-02-21 00:00:00 JUAN Martínez: [address], [place] [phone] , Ph. [facility] - GC_GCBZW_[facility] [place]* [id number] [facility] 2024-01-31 00:00:00 2024-01-31 00:00:00 Darlyn Molina, PROPERTY MANAGEMENT ACCOUNTANT: [address], [place] [phone] , Ph. [facility] - GC_GCBZW_[facility]* [id number] [facility] 2024-01-24 00:00:00 2024-01-24 13:13:00 Letter (Out) David Blood [facility] ..840.114 350.1.13.10 4.2.7.2.686 [id number] [id number] [facility] 2024-01-24 00:00:00 2024-01-24 00:00:00 Saulo Montenegro MD: [address], [place] [phone] , Ph. [facility] GC_GCBZW_[facility]* [id number] [facility] 2024-01-21 00:00:00 2024-01-21 00:00:00 JUAN Martínez: [address], [place] [phone] , Ph. [facility] GC_GCBZW_[facility]* [id number] [facility] 2024-01-18 17:23:00 2024-01-18 22:18:00 Emergency X CAREN JOHNSTON SHINTA [facility] ERT [id number] [facility] 2024-01-18 17:23:00 2024-01-18 22:18:00 Emergency Caren Johnston [facility] 1..840.114 350.1.13.10 4.2.7.2.686 [id number] [id number] [facility] 2024-01-14 09:35:44 2024-01-14 09:35:44 Outpatient [facility] [id number] Josef Leslie 2023-12-24 15:36:17 2023-12-24 15:36:17 Outpatient [facility] [id number] Josef Leslie 2023-12-18 10:33:00 2023-12-18 13:04:00 Emergency X SERJIO ANDINO SERJIO ANDINO [facility] ERT [id number] [facility] 2023-12-18 10:33:00 2023-12-18 13:04:00 Emergency Serjio Andino [facility] 1..840.114 350.1.13.10 4.2.7.2.686 [id number] 084 [id number] [facility] 2023-12-17 08:45:10 2023-12-17 08:45:10 Outpatient [facility] [id number] Josef Leslie 2023-12-03 13:05:31 2023-12-03 13:05:31 Outpatient [facility] [id number] Josef Leslie 2023-11-20 14:56:11 2023-11-20 14:56:11 Outpatient [facility] [id number] Josef Leslie 2023-11-13 13:46:51 2023-11-13 13:46:51 Outpatient [facility] [id number] Josef Leslie 2023-11-12 14:45:00 2023-11-12 14:45:00 Outpatient ALIN WYATT [id number] Isabel Sewell 2023-09-28 20:21:00 2023-09-28 22:45:00 Emergency X TINYCAREN [facility] ERT [id number] [facility] 2023-09-28 20:21:00 2023-09-28 22:45:00 Emergency DenishaCaren watters [facility] 1..840.114 350.1.13.10 4.2.7.2.686 [id number] [id number] [facility] 2023-09-04 00:00:00 2023-09-04 00:00:00 Patient Outreach Beba Crespo 1.2.840.114 350.1.13.10 4.2.7.2.686 [id number] [facility] 2023-08-24 00:00:00 2023-08-24 00:00:00 Patient Secure Msg Doctor Unassigned, [place] [facility] 1.2840.114 350.1.13.10 4.2.7.2.686 [id number] [facility] 2023-08-03 19:46:00 2023-08-04 01:39:00 Emergency X RICH MONTILLA PAUL [facility] ERT [id number] [facility] 2023-08-03 19:46:00 2023-08-04 01:39:00 [facility] 1.2840.114 350.1.13.10 4.2.7.2.686 [id number] [facility] 2023-06-28 00:00:00 2023-06-28 01:50:00 Emergency X LEE JETT [facility] ERT [id number] [facility] 2023-06-28 00:00:00 2023-06-28 01:50:00 Emergency Lee Jett [facility] 1.2.840.114 350.1.13.10 4.2.7.2.686 [id number] [id number] [facility] 2023-06-20 16:53:00 2023-06-20 19:24:00 Emergency Yesenia Kendrick [facility] 1.2.840.114 350.1.13.10 4.2.7.2.686 [id number] [id number] [facility] 2023-06-20 16:53:00 2023-06-20 19:24:00 Emergency X YESENIA KENDRICK [facility] ERT [id number] [facility] 2023-06-20 16:53:00 2023-06-20 16:53:00 Emergency X YESENIA KENDRICK [facility] ERT [id number] [facility] Results Test Description Test Time Test Comments [...] abnormality. Minimal levoconvex curvature of the lumbarspine [facility] T[facility]-Qrl8319-77-23 02:50:29* Test Item Value Reference Range Interpretation Comme nts NT-proBNP (test code = 27451-6) 22 pg/mL <=125 Lab Interpretation (test cod e = 62471-5) Normal [facility] (05945)2024-10-24 02:34:28* Test Item Value Reference Range Interpretation Comme nts NA (test code = 4093240044) 138 mmol/L 135-145 K (test code = 2458187376) 4.2 mmol/L 3.5-5.0 CL (test code = 8260139953) 105 mmol/L 98-108 CO2 TOTAL (test code = 4352493594) 28 mmol/L 23-31 AGAP (test code = 7149025945) 5 2-16 BUN (test code = 6646955961) 23 mg/dL 7-23 GLUCOSE (test code = 9018206720) 74 mg/dL 70-110 CREATININE (test code = 2160-0) 0.77 mg/dL 0.50-1.04 TOTAL BILI (test code = 1709072732) 0.7 mg/dL 0.1-1.1 CALCIUM (test code = 0258115734) 9.1 mg/dL 8.6-10.6 T PROTEIN (test code = 4180098439) 8.1 g/dL 6.3-8.2 ALBUMIN (test code = 8898412366) 4.3 g/dL 3.5-5.0 ALK PHOS (test code = 3570917805) 63 U/L 34-122 ALTv (test code = 1742-6) 76 U/L 5-35 H AST(SGOT) (test code = 3151725483) 58 U/L 13-40 H eGFR (test code = 90720-9) 94.1 mL/min/1.73m2 CKD-EPI eGFR (2020). Assuming creatinine has been stable day-to-day for at least three months, the eGFR indicates Category G1 (>= 90 mL/min/1.73 m2) Lab Interpretation (test code = 51100-5) Abnormal [facility]2025-[facility]-23 02:34:28* Test Item Value Reference Range Interpretation Comme nts LIPASE (test code = 0914447591) 211 U/L 0-220 Lab Interpretation (test cod e = 34773-2) Normal [facility]2027-00-15 02:12:23* Test Item Value Reference Range Interpretation [...] 33.1 g/dL 31.6-35.1 RDW-SD (test code = 04552-2) 45.5 fL 39.0-49.9 RDW-CV (test code = 788-0) 13.4 % 12.0-15.5 PLT (test code = 777-3) 274 166-358 MPV (test code = 95057-3) 9.7 fL 9.5-12.9 NRBC/100 WBC (test code = 9632732557) 0 0.0-10.0 NRBC x10^3 (test code = 0954751370) See_Comment [Automated messa ge] The system which generated this result transmitted reference range: 10*3/?L. The reference range was not used to interpret this result as normal/abnormal. GRAN MAT (NEUT) % (test code = 770-8) 65.3 % IMM GRAN % (test code = 8339677173) 0.3 % LYMPH % (test code = 736-9) 21.9 % MONO % (test code = 5905-5) 9.8 % EOS % (test code = 713-8) 2.2 % BASO % (test code = 706-2) 0.5 % GRAN MAT x10^3(ANC) (test code = 1300027467) 3.81 10*3/uL 1.88-7.09 IMM GRAN x10^3 (test code = 4605650304) 0.00-0.06 LYMPH x10^3 (test code = 731-0) 1.28 10*3/uL 1.32-3.29 L MONO x10^3 (test code = 742-7) 0.57 10*3/uL 0.33-0.92 EOS x10^3 (test code = 711-2) 0.13 10*3/uL 0.03-0.39 BASO x10^3 (test code = 704-7) 0.03 10*3/uL 0.01-0.07 Lab Interpretation (test code = 51061-2) Abnormal [facility] [Units/volume] in Serum or Plasma 2024-09-11 00:00:00* Test Item Value Reference Range Interpretation Comme nts FSH (test code = FSH) 79.0 mIU/mL [facility] MedicalXR Ankle 3+ vw [id number] 15:58:45ORDERING PROVIDER: JAQUI NORRIS HISTORY: Pain. TECHNIQUE: 3 views of the left ankle were performed. COMPARISON: Radiograph of the left ankle performed 09/28/2023 FINDINGS/[facility] Auto Differential panel - Svxok5411-17-72 00:00:00 * Test Item Value Reference Range [...] code = baso #) 0.1 10 0.0-0.2 [facility] W/AUTO [id number] 07:26:00* Test Item Value Reference Range Interpretation [...] NRBC#) 0.0 K/mm3 0.0-0.1 N CBC W/AUTO [id number] 13:05:00* Test Item Value Reference Range Interpretation [...] REVIEW CONSISTANT WITH AUTO DIFFERENTIAL. COMPREHENSIVE METABOLIC [id number] 11:56:00* Test Item Value Reference Range Interpretation [...] code = ALKP) 217 Unit/L 50-136 H ZSUQCQKXXNF8780-81-26 11:56:00* Test Item Value Reference Range Interpretation Comme nts PHOSPHOROUS (test code = PHOS) 3.7 MG/DL 2.5-4.9 N [id number] 11:56:00* Test Item Value Reference Range Interpretation Comme nts MAGNESIUM (test code = MAG) 2.0 MG/DL 1.8-2.4 N CBC W/AUTO [id number] 14:33:00* Test Item Value Reference Range Interpretation [...] = NRBC#) 0.0 K/mm3 0.0-0.1 N HCG [id number] 08:36:00* Test Item Value Reference Range Interpretation Comme nts HCG SERUM (test code = HCG) 4 mi-IU/ML 0-6 N COMPREHENSIVE METABOLIC [id number] 04:30:00* Test Item Value Reference Range Interpretation [...] ALKP) 233 Unit/L 50-136 H COMPREHENSIVE METABOLIC [id number] 05:00:00* Test Item Value Reference Range Interpretation [...] ALKP) 277 Unit/L 50-136 H CBC W/AUTO [id number] 04:46:00* Test Item Value Reference Range Interpretation [...] NRBC#) 0.0 K/mm3 0.0-0.1 N CBC W/AUTO [id number] 04:37:00* Test Item Value Reference Range Interpretation [...] NRBC#) 0.0 K/mm3 0.0-0.1 N COMPREHENSIVE METABOLIC [id number] 04:49:00* Test Item Value Reference Range Interpretation [...] = ALKP) 220 Unit/L 50-136 H PROTHROMBIN [id number] 04:19:00* Test Item Value Reference Range Interpretation [facility] (test code = PTP) [...] Infarction (to prevent recurrent infarct). THROMBOPLASTIN TIME [id number] 04:19:00* Test Item Value Reference Range Interpretation [facility] THROMBOPLASTIN TIME PARTIAL (test code = PTT) 32.2 SECONDS 26-35 N CBC W/AUTO [id number] 04:12:00* Test Item Value Reference Range Interpretation [facility] WHITE BLOOD CELL (test code = WBC) [...] K/mm3 0.0-0.[address] Abdomen pelvis w xuvzgcrd0029-88-29 23:25:16EXAM: CT abdomen pelvis with contrast HISTORY: [...] compression.[facility]. Metabolic Panel (25762)2024-06-29 21:25:16* Test Item Value Reference Range Interpretation Comme nts NA (test code = 2819783594) 132 mmol/L 135-145 L K (test code = 7287904001) 4.4 mmol/L 3.5-5.0 CL (test code = 7888311080) 98 mmol/L 98-108 CO2 TOTAL (test code = 5437735715) 27 mmol/L 23-31 AGAP (test code = 7712922904) 7 2-16 BUN (test code = 0104903010) 28 mg/dL 7-23 H GLUCOSE (test code = 6824436003) 103 mg/dL 70-110 CREATININE (test code = 2160-0) 0.63 mg/dL 0.50-1.04 TOTAL BILI (test code = 2888451913) 0.7 mg/dL 0.1-1.1 CALCIUM (test code = 2016971560) 8.9 mg/dL 8.6-10.6 T PROTEIN (test code = 3694146900) 7.8 g/dL 6.3-8.2 ALBUMIN (test code = 3948965589) 4.1 g/dL 3.5-5.0 ALK PHOS (test code = 2026110170) 284 U/L 34-122 H ALTv (test code = 1742-6) 110 U/L 5-35 H AST(SGOT) (test code = 3556679703) 68 U/L 13-40 H eGFR (test code = 99082-6) 108.9 mL/min/1.73m2 CKD-EPI eGFR (2020). Assuming creatinine has been stable day-to-day for at least three months, the eGFR indicates Category G1 (>= 90 mL/min/1.73 m2) Lab Interpretation (test code = 33160-7) Abnormal [facility]2025-01-26 21:25:16* Test Item Value Reference Range Interpretation Comme nts LIPASE (test code = 4831941228) 122 U/L 0-220 Lab Interpretation (test cod e = 38009-6) [facility] Qwlw8653-73-55 21:11:16* Test Item Value Reference Range Interpretation [...] 33.3 g/dL 31.6-35.1 RDW-SD (test code = 17013-1) 43.7 fL 39.0-49.9 RDW-CV (test code = 788-0) 13.5 % 12.0-15.5 PLT (test code = 777-3) 312 166-358 MPV (test code = 14215-7) 9.6 fL 9.5-12.9 NRBC/100 WBC (test code = 3445196710) 0.0 0.0-10.0 NRBC x10^3 (test code = 4370375433) See_Comment [Automated message] The system which generated this result transmitted reference range: 10*3/?L. The reference range was not used to interpret this result as normal/abnormal. GRAN MAT (NEUT) % (test code = 770-8) 86.1 % IMM GRAN % (test code = 7852478575) 0.40 % LYMPH % (test code = 736-9) 5.2 % MONO % (test code = 5905-5) 7.4 % EOS % (test code = 713-8) 0.6 % BASO % (test code = 706-2) 0.3 % GRAN MAT x10^3(ANC) (test code = 4575041586) 13.44 10*3/uL 1.88-7.09 H IMM GRAN x10^3 (test code = 2564045008) 0.06 10*3/uL 0.00-0.06 LYMPH x10^3 (test code = 731-0) 0.81 10*3/uL 1.32-3.29 L MONO x10^3 (test code = 742-7) 1.15 10*3/uL 0.33-0.92 H EOS x10^3 (test code = 711-2) 0.09 10*3/uL 0.03-0.39 BASO x10^3 (test code = 704-7) 0.05 10*3/uL 0.01-0.07 Lab Interpretation (test code = 66316-0) [facility]40[facility]00* Test Item Value Reference Range Interpretation Comme nts SURGICAL (test code = SR) -----RUN DATE: 06/26/24 [facility] - LAB PAGE 1 RUN TIME: 1540 Specimen Inquiry RUN USER: INTERFACE -----PATIENT: BRICE DELATORRE LOC: U #: [id number] AGE/SX: 48/F ROOM: RE06/23/24REG DR: Saulo Montenegro MD : 74 BED: DIS: STATUS: [facility] TLOC: ----- SPEC #: [id number]:PMC:[id number] RECD: 06/24/24 STATUS: [facility] #: [id number] GISELE: 06/23/24-1305 [facility] DR: Saulo Montenegro MD ENTERED: 06/24/24 SP TYPE: SURGICAL OTHR DR: ORDERED: [id number], ANATOMIC SPEC, SPECIMEN TRACK PROCEDURES: 30031 (06/26/24-1538) SPECIMEN TRACK (06/24/24) TISSUES: A. UTERUS - [...] CONTINUED ON NEXT PAGE -----RUN DATE: 06/26/24 [facility] PAGE 2 RUN TIME: 1540 Specimen Inquiry RUN USER: INTERFACE -----SPEC #: 25:R [facility]:[id number] PATIENT: BRICE DELATORRE #[id number] (Continued) GROSS DESCRIPTION (Continued) A5 additional anterior endomyometriumA6 uterine wall noduleA7 posterior reflectionA8-A10 section of left ovarian cyst A11 left fallopian tube cut surface with entire bisected fimbriated endA12 right fallopian tube cut surface with entire bisected fimbriated end Technical tissue processing and slide preparation performed at [employer],[address] [address] , [place] [address] MICROSCOPIC DESCRIPTION Microscopic examination is performed and the findings are incorporated into the finaldiagnosis. Please see diagnosis for findings. Signed SIGNATURE ON FILE Dany Quintero X 06/26/24 1540 ----- END OF REPORT URINALYSIS [id number] 14:20:00* Test Item Value Reference Range Interpretation [...] NEGATIVE Urine Specimen Type: Clean CatchHCG SERUM [id number] 14:08:00* Test Item Value Reference Range Interpretation Comme [facility] HCG SERUM QUAL (test code = HCGQL) SERUM NEGATIVE SCREEN NEGATIVE PROTHROMBIN [id number] 13:57:00* Test Item Value Reference Range Interpretation Comme [facility] PT PATIENT (test code = PTP) 10.3 [...] Infarction (to prevent recurrent infarct). THROMBOPLASTIN TIME [id number] 13:57:00* Test Item Value Reference Range Interpretation Comme [facility] THROMBOPLASTIN TIME PARTIAL (test code = PTT) 35.7 SECONDS 26-35 H CBC W/O [id number] 13:51:00* Test Item Value Reference Range Interpretation [...] fL 7.0-10.5 N POCT Urinalysis W Specific Hstgzns1676-45-98 22:16:00* Test Item Value Reference Range Interpretation [...] U APPEAR (test code = 3267) hazy [facility] Pathology biopsy vkyvpj8317-36-81 00:00:00Clinical InformationPathologistReport NotesA SourceA Gross DescriptionA DiagnosisB SourceB Gross DescriptionB DiagnosisPrivia MedicalUS OVARY TORSION 2024-03-26 03:31:57EXAM: US OVARY TORSION HISTORY: 48 years-old Female; Provided indication: r/o torsion, L pelvicpain. LMP = not providedPregnancy test = Negative. TECHNIQUE: Transabdominal and transvaginal ultrasound imaging and colorDoppler evaluation of the pelvis was performed. Spectral Doppler evaluationof theovaries was performed. Lead Inspector images were obtained for therecord. COMPARISON: Same [...] color Doppler. Cul-de-sac: No free fluid is present.[facility] ABDOMEN PELVIS W CONTRAST 2024-03-26 02:27:24HISTORY: ?LLQ abdominal pain COMPARISON:none TECHNIQUE:CT scan of the abdomen and pelvis performed.Contiguous axial CT imageswere obtained after administration of intravenous contrast. ?CT scan doneaccording to [facility]. Technical quality: Technical quality: adequate. FINDINGS: 1 [...] is normal. The bones and soft tissues unremarkable.[facility] METABOLIC PANEL (NA, K, CL, CO2, GLUCOSE, BUN, CREATININE, CA)2024-03-26 01:20:23* Test Item Value Reference Range Interpretation Comme nts NA (test code = 0434047993) 136 mmol/L 135-145 K (test code = 0264701689) 4.0 mmol/L 3.5-5.0 CL (test code = 3165709934) 104 mmol/L 98-108 CO2 TOTAL (test code = 9573410104) 24 mmol/L 23-31 AGAP (test code = 3430487378) 8 2-16 BUN (test code = 8969573566) 18 mg/dL 7-23 GLUCOSE (test code = 4164623699) 92 mg/dL 70-110 CREATININE (test code = 2160-0) 0.72 mg/dL 0.50-1.04 CALCIUM (test code = 6159171765) 8.8 mg/dL 8.6-10.6 eGFR (test code = 69658-4) 102.6 mL/min/1.73m2 CKD-EPI eGFR (20 21). Assuming creatinine has been stable day-to-day for at least three months, the eGFR indicates Category G1 (>= 90 mL/min/1.73 m2) [facility] WITH [id number] 01:06:53* Test Item Value Reference Range Interpretation [...] 32.9 g/dL 31.6-35.1 RDW-SD (test code = 87429-3) 42.9 fL 39.0-49.9 RDW-CV (test code = 788-0) 12.3 % 12.0-15.5 PLT (test code = 777-3) 303 166-358 MPV (test code = 60293-4) 9.7 fL 9.5-12.9 NRBC/100 WBC (test code = 8614509175) 0.0 0.0-10.0 NRBC x10^3 (test code = 3458240393) See_Comment [Automated me ssage] The system which generated this result transmitted reference range: 10*3/?L. The reference range was not used to interpret this result as normal/abnormal. GRAN MAT (NEUT) % (test code = 770-8) 65.4 % IMM GRAN % (test code = 9608129028) 0.30 % LYMPH % (test code = 736-9) 23.5 % MONO % (test code = 5905-5) 8.0 % EOS % (test code = 713-8) 1.9 % BASO % (test code = 706-2) 0.9 % GRAN MAT x10^3(ANC) (test code = 4759217640) 4.50 10*3/uL 1.88-7.09 IMM GRAN x10^3 (test code = 6673956951) 0.00-0.06 LYMPH x10^3 (test code = 731-0) 1.62 10*3/uL 1.32-3.29 MONO x10^3 (test code = 742-7) 0.55 10*3/uL 0.33-0.92 EOS x10^3 (test code = 711-2) 0.13 10*3/uL 0.03-0.39 BASO x10^3 (test code = 704-7) 0.06 10*3/uL 0.01-0.07 [facility] [id number] 00:45:00* Test Item Value Reference Range Interpretation Comme nts POCT PREG (test code = 1605) Negative On board controls acceptable with C Line (test code = 3574) Yes POCT PREG LOT # (test code = 3575) [id number] POCT PREG TEST DATE ( test code = 3576) 03-08-2025 Lab Interpretation (test cod e = 40161-3) Normal [facility], vkvqn1646-98-66 15:35:20* Test Item Value Reference Range Interpretation Comme nts HCG (test code = HCG) negative [facility] Pathology biopsy mvykxe7898-36-32 00:00:00Clinical InformationPathologistA SourceA Gross DescriptionA DiagnosisA CommentB SourceB Gross DescriptionB DiagnosisB CommentPrivia Medicalpregnancy test, urine 2024-03-06 10:09:00* Test Item Value Reference Range Interpretation Comme nts HCG (test code = HCG) negative [facility] Medicalpregnancy test, brswg7816-09-64 16:02:00* Test Item Value Reference Range Interpretation Comme nts HCG (test code = HCG) negative [facility] panel - Blood by Automated [id number] 00:00:00* Test Item Value Reference Range Interpretation [...] 0.0-0.2 [facility] MedicalThyrotropin [Units/volume] in Serum or Bkadrd0103-29-83 00:00:00* Test Item Value Reference Range Interpretation Comme nts TSH (test code = TSH) 1.640 uIU/mL 0.500-4.530 [facility] MedicalFollitropin [Units/volume] in Serum or [id number] 00:00:00* Test Item Value Reference Range Interpretation Comme nts FSH (test code = FSH) 6.2 mIU/mL [facility] MedicalChlamydia trachomatis and Neisseria gonorrhoeae rRNA panel - Specimen by CY with probe xosppxtli5629-88-81 00:00:00* Test Item Value Reference Range Interpretation Comme nts aptima combo 2 swab (CT) (te st code = aptima combo 2 swab (CT)) CT neg negative aptima combo 2 swab (GC) (te st code = aptima combo 2 swab (GC)) GC neg negative [facility], LB + [id number] 00:00:00* Test Item Value Reference Range Interpretation [...] detected A [facility] ABDOMEN PELVIS W [id number] 02:07:05HS:Y Indication: Flank pain, kidney stone suspected LLQ abdominal pain ? Comparison: CT abdomen andpelvis report 06/28/2023 RL: [id number] ORDERING PHYSICIAN: ?CAREN ?VINCENT TECHNIQUE: Axial CT images ofthe abdomen and [...] soft tissue: No acute osseous abnormality is noted.[facility] 2024-01-19 01:56:55* Test Item Value Reference Range Interpretation Comme nts NA (test code = 9350590086) 138 mmol/L 135-145 K (test code = 5255793660) 4.2 mmol/L 3.5-5.0 CL (test code = 5949419008) 103 mmol/L 98-108 CO2 TOTAL (test code = 8249994891) 26 mmol/L 23-31 AGAP (test code = 0085062023) 9 2-16 BUN (test code = 6716614328) 21 mg/dL 7-23 GLUCOSE (test code = 1821504258) 94 mg/dL 70-110 CREATININE (test code = 2160-0) 0.82 mg/dL 0.50-1.04 TOTAL BILI (test code = 2872520598) 1.0 mg/dL 0.1-1.1 CALCIUM (test code = 9751751597) 9.2 mg/dL 8.6-10.6 T PROTEIN (test code = 0349978802) 8.8 g/dL 6.3-8.2 H ALBUMIN (test code = 2926207247) 4.5 g/dL 3.5-5.0 ALK PHOS (test code = 6158151530) 72 U/L 34-122 ALTv (test code = 1742-6) 122 U/L 5-35 H AST(SGOT) (test code = 5648899682) 77 U/L 13-40 H eGFR (test code = 17655-1) 87.8 mL/min/1.73m2 CKD-EPI eGFR (2020). Assuming creatinine has been stable day-to-day for at least three months, the eGFR indicates Category G2 (60 - 89 mL/min/1.73 m2) Lab Interpretation (test code = 97672-6) Abnormal [facility], [id number] 01:56:55* Test Item Value Reference Range Interpretation Comme nts LIPASE (test code = [id number]) 328 U/L 0-220 H Lab Interpretation (test cod e = 39385-6) [facility] [id number] 01:47:54* Test Item Value Reference Range Interpretation [...] 33.3 g/dL 31.6-35.1 RDW-SD (test code = 75023-4) 44.8 fL 39.0-49.9 RDW-CV (test code = 788-0) 13.2 % 12.0-15.5 PLT (test code = 777-3) 296 166-358 MPV (test code = 35998-4) 9.3 fL 9.5-12.9 L NRBC/100 WBC (test code = 4355950450) 0.0 0.0-10.0 NRBC x10^3 (test code = 8948424875) See_Comment [Automated [employer]] The system which generated this result transmitted reference range: 10*3/?L. The reference range was not used to interpret this result as normal/abnormal. GRAN MAT (NEUT) % (test code = 770-8) 69.9 % IMM GRAN % (test code = 0004654390) 0.30 % LYMPH % (test code = 736-9) 20.9 % MONO % (test code = 5905-5) 6.8 % EOS % (test code = 713-8) 1.6 % BASO % (test code = 706-2) 0.5 % GRAN MAT x10^3(ANC) (test code = 3900457780) 5.20 10*3/uL 1.88-7.09 IMM GRAN x10^3 (test code = 3189157014) 0.00-0.06 LYMPH x10^3 (test code = 731-0) 1.56 10*3/uL 1.32-3.29 MONO x10^3 (test code = 742-7) 0.51 10*3/uL 0.33-0.92 EOS x10^3 (test code = 711-2) 0.12 10*3/uL 0.03-0.39 BASO x10^3 (test code = 704-7) 0.04 10*3/uL 0.01-0.07 Lab Interpretation (test code = 35629-5) [facility] [id number] 22:34:00* Test Item Value Reference Range Interpretation Comme nts POCT PREG (test code = 1605) Negative On board controls acceptable with C Line (test code = 3574) Yes POCT PREG LOT # (test code = 3575) [id number] POCT PREG TEST DATE ( test code = 3576) 04/15/2025 Lab Interpretation (test cod e = 58294-7) Normal [facility] LUMBAR SPINE WO [id number] 16:57:09 EXAM: CT LUMBAR SPINE WO CONTRAST [...] and pelvis forbetter assessment of the intra-abdominal structures.[facility] ABDOMEN PELVIS WO [id number] 16:47:11CT Abdomen and Pelvis without contrast. CLINICAL [...] surrounding the aorta without unchanged since December 2022study. Bowel: ?Constipation noted. Normal appendix is visualized. Bladder ?and Reproductive Organs: Vaginal tampon is in place. No grosspathology is seen in the uterus or adnexa. Urinary bladder is poorlydistended. Bones: ?Old trauma to upper plate of T11. No acute bony pathology. Soft tissues: Unremarkable. CONCLUSION:1. Bilateral kidney stones without any hydronephrosis or obstructing stonesin the ureters.2. S/P cholecystectomy.[facility] [id number] 15:46:00* Test Item Value Reference Range Interpretation Comme nts POCT PREG (test code = 1605) Negative On board controls acceptable with C Line (test code = 3574) Yes POCT PREG LOT # (test code = 3572) [id number] POCT PREG TEST DATE ( test code = 3576) 10-09-2024 Lab Interpretation (test cod e = 16710-3) Normal [facility] GALL [id number] 03:09:38Ordering Physician: RICH MONTILLA Clinical Indication: RUQ pain, postprandial, eval GB Additional Clinical Information: Technical Limitations: None Comparison: None Technique: Gallbladder ultrasound Findings: Pancreas is normal in appearance. Dilated IVC normal in caliber.Common bile duct is 4.6 mm.Main portal vein is 12 mm with hepatopedalflow. Liver is normal in size and echogenicity. Gallbladder is absent.[facility]. METABOLIC PANEL (44080) 2023-06-28 06:49:55* Test Item Value Reference Range Interpretation Comme nts NA (test code = 5694626011) 139 mmol/L 135-145 K (test code = 2816987385) 4.1 mmol/L 3.5-5.0 CL (test code = 5536455892) 107 mmol/L 98-108 CO2 TOTAL (test code = 7063725516) 23 mmol/L 23-31 AGAP (test code = 8273726908) 9 2-16 BUN (test code = 7128813796) 19 mg/dL 7-23 GLUCOSE (test code = 7369426280) 89 mg/dL 70-110 CREATININE (test code = 1773786008) 0.55 mg/dL 0.50-1.04 TOTAL BILI (test code = 0548945341) 0.6 mg/dL 0.1-1.1 CALCIUM (test code = 9062917094) 8.8 mg/dL 8.6-10.6 T PROTEIN (test code = 5277147696) 7.8 g/dL 6.3-8.2 ALBUMIN (test code = 8030533703) 4.0 g/dL 3.5-5.0 ALK PHOS (test code = 3873098681) 77 U/L 34-122 ALTv (test code = 1742-6) 52 U/L 5-35 H AST(SGOT) (test code = 5204194318) 45 U/L 13-40 H eGFR (test code = 20435-5) 113.2 mL/min/1.73m2 CKD-EPI eGFR (2020). Assuming creatinine has been stable day-to-day for at least three months, the eGFR indicates Category G1 (>= 90 mL/min/1.73 m2) Lab Interpretation (test code = 93563-0) Abnormal [facility] WITH [id number] 06:41:14* Test Item Value Reference Range Interpretation Comme nts WBC (test code = 6690-2) 8.39 See_Comment [Automated [employer] ge] The system which generated this result transmitted reference range: 4.30 - 11.10 10*3/?L. The reference range was not used to interpret this result as normal/abnormal. RBC (test code = 789-8) 4.72 See_Comment [Automated [employer]] The system which generated this result [...] 33.3 g/dL 31.6-35.1 RDW-SD (test code = 80112-8) 46.5 fL 39.0-49.9 RDW-CV (test code = 788-0) 14.6 % 12.0-15.5 PLT (test code = 777-3) 322 See_Comment [Automated [employer]] The system which generated this result transmitted reference range: 166 - 358 10*3/?L. The reference range was not used to interpret this result as normal/abnormal. MPV (test code = 47503-3) 9.1 fL 9.5-12.9 L NRBC/100 WBC (test code = 3009452300) 0.0 See_Comment [Automated [employer]] The system which generated this result transmitted reference range: 0.0 - 10.0 /100 WBCs. The reference range was not used to interpret this result as normal/abnormal. NRBC x10^3 (test code = 7923986181) See_Comment [Automated [employer] [place]] The system which generated this result transmitted reference range: 10*3/?L. The reference range was not used to interpret this result as normal/abnormal. GRAN MAT (NEUT) % (test code = 770-8) 66.2 % IMM GRAN % (test code = 7003512295) 0.40 % LYMPH % (test code = 736-9) 21.7 % MONO % (test code = 5905-5) 8.7 % EOS % (test code = 713-8) 2.3 % BASO % (test code = 706-2) 0.7 % GRAN MAT x10^3(ANC) (test code = 0097639236) 5.56 10*3/uL 1.88-7.09 IMM GRAN x10^3 (test code = 8746344362) 0.03 10*3/uL 0.00-0.06 LYMPH x10^3 (test code = 731-0) 1.82 10*3/uL 1.32-3.29 MONO x10^3 (test code = 742-7) 0.73 10*3/uL 0.33-0.92 EOS x10^3 (test code = 711-2) 0.19 10*3/uL 0.03-0.39 BASO x10^3 (test code = 704-7) 0.06 10*3/uL 0.01-0.07 Lab Interpretation (test code = 91821-0) Abnormal [facility] PELVIS COMPLETE WITH [id number] 01:02:52Exam: Pelvic and Transvaginal Ultrasound, 06/20/2023 5:15 PM. Ordering Physician: ?YESENIA KENDRICK. History: ?Abnormal vaginal bleeding. Comparison: None. [...] in both ovaries. There is no pelvicfree fluid.[facility]. METABOLIC PANEL (85906)2023-06-21 00:42:09* Test Item Value Reference Range Interpretation Comme nts NA (test code = 9699758025) 141 mmol/L 135-145 K (test code = 8071216134) 4.1 mmol/L 3.5-5.0 CL (test code = 2341641270) 111 mmol/L 98-108 H CO2 TOTAL (test code = 5188461856) 23 mmol/L 23-31 AGAP (test code = 6520141011) 7 2-16 BUN (test code = 6425005484) 20 mg/dL 7-23 GLUCOSE (test code = 9617011334) 103 mg/dL 70-110 CREATININE (test code = 3648256896) 0.66 mg/dL 0.50-1.04 TOTAL BILI (test code = 2058147242) 0.6 mg/dL 0.1-1.1 CALCIUM (test code = 4163436729) 8.9 mg/dL 8.6-10.6 T PROTEIN (test code = 0226210671) 8.4 g/dL 6.3-8.2 H ALBUMIN (test code = 1998447563) 4.3 g/dL 3.5-5.0 ALK PHOS (test code = 8378272172) 89 U/L 34-122 ALTv (test code = 1742-6) 58 U/L 5-35 H AST(SGOT) (test code = 0064788625) 56 U/L 13-40 H eGFR (test code = 57009-1) 108.4 mL/min/1.73m2 CKD-EPI eGFR (2020). Assuming creatinine has been stable day-to-day for at least three months, the eGFR indicates Category G1 (>= 90 mL/min/1.73 m2) Lab Interpretation (test code = 43695-8) Abnormal [facility] WITH [id number] 00:29:04* Test Item Value Reference Range Interpretation [...] 34.2 g/dL 31.6-35.1 RDW-SD (test code = 35344-5) 46.8 fL 39.0-49.9 RDW-CV (test code = 788-0) 14.6 % 12.0-15.5 PLT (test code = 777-3) 347 See_Comment [Automated message] The system which generated this result transmitted reference range: 166 - 358 10*3/?L. The reference range was not used to interpret this result as normal/abnormal. MPV (test code = 58640-4) 10.2 fL 9.5-12.9 NRBC/100 WBC (test code = 0783392187) 0.0 See_Comment [Automated message] The system which generated this result transmitted reference range: 0.0 - 10.0 /100 WBCs. The reference range was not used to interpret this result as normal/abnormal. NRBC x10^3 (test code = 8334086274) See_Comment [Automated message] The system which generated this result transmitted reference range: 10*3/?L. The reference range was not used to interpret this result as normal/abnormal. GRAN MAT (NEUT) % (test code = 770-8) 83.0 % IMM GRAN % (test code = 3879629395) 0.40 % LYMPH % (test code = 736-9) 10.6 % MONO % (test code = 5905-5) 4.8 % EOS % (test code = 713-8) 0.7 % BASO % (test code = 706-2) 0.5 % GRAN MAT x10^3(ANC) (test code = 4537812450) 11.15 10*3/uL 1.88-7.09 H IMM GRAN x10^3 (test code = 3608290522) 0.05 10*3/uL 0.00-0.06 LYMPH x10^3 (test code = 731-0) 1.42 10*3/uL 1.32-3.29 MONO x10^3 (test code = 742-7) 0.65 10*3/uL 0.33-0.92 EOS x10^3 (test code = 711-2) 0.10 10*3/uL 0.03-0.39 BASO x10^3 (test code = 704-7) 0.07 10*3/uL 0.01-0.07 Lab Interpretation (test code = 06356-5) Abnormal [facility] [id number] 00:10:00* Test Item Value Reference Range Interpretation Comme nts POCT PREG (test code = 1605) Negative On board controls acceptable with C Line (test code = 3574) Yes POCT PREG LOT # (test code = 3570) [id number] POCT PREG TEST DATE ( test code = 3576) 08/12/2024 Lab Interpretation (test cod e = 42533-4) Normal [facility] [id number] 13:47:00* Test Item Value Reference Range Interpretation Comme nts Culture Observations (test code = COB1) NO ANAEROBES ISOLATED AFTER 5 DAYS WOUND/SKIN/ABS.&GRAMSTAIN [id number] 10:43:00* Test Item Value Reference Range Interpretation Comme nts Culture Observations (test code = COB1) NO GROWTH AFTER 5 DAYS Direct Exam (test code = DE1) MANY WHITE BLOOD CELLS SEEN Direct Exam (test code = DE2) FEW GRAM NEGATIVE DILAN BLOOD [id number] 08:59:00* Test Item Value Reference Range Interpretation Comme nts Culture Observations (test code = COB1) NO GROWTH AFTER 5 DAYS HEPATITIS C BY PCR (VIRAL LOAD)2017-08-24 08:33:00* Test Item Value Reference Range Interpretation Comme nts HCV RNA QUANTITATIVE REAL TIME PCR (test code = 61419097) 9194366 IU/mL NOT DETECTED H HCV RNA, Quantitative Real Time PCR (test code = 30707805) 6.14 Log IU/mL NOT DETECTED H END NOTE 1 (test code = 73685773) This test was performed using Real-Time Polymerase ChainReaction.Reporta ble Range: 15 IU/mL to 100,000,000 IU/mL(1.18 Log IU/mL to 8.00 Log IU/mL).The analytical performance characteristics of thisassay have been determined by [employer].The modifications have not been cleared or approved bythe FDA. This assay has been validated pursuant to theCLIA regulations and is used for clinical purposes.For more information on this test, go to:http://education.Gateway 3D.Pluck/f aq/PAR26z6(This link is being provided for informational/educati onal purposes only.)TEST PERFORMED AT:[facility]-[id number] [facility], [place] [address]ODDFVWCLARK TRUJILLO MD COMPREHENSIVE METABOLIC [id number] 05:52:00* Test Item Value Reference Range Interpretation [...] MORPH (test code = RBCMOR) NORMAL VANCOMYCIN [id number] 22:55:00* Test Item Value Reference Range Interpretation Comme nts VANC TROGH (test code = VANCT) 7.0 ug/dL 10.0-20.0 L HEPATITIS B CORE IgM [id number] 10:22:00* Test Item Value Reference Range Interpretation Comme nts HEPATITIS B CORE ANTIBODY (IGM) (test code = 97797069) NON-REACTIVE NON-REACTIVE TEST PERFORMED AT:[facility] [address] [id number] ARM M.D. HEPATITIS A IGM [id number] 09:32:00* Test Item Value Reference Range Interpretation Comme nts HEPATITIS A IGM (test code = 26485782) NON-REACTIVE NON-REACTIVE TEST PERFORMED AT:[facility] [address] [address]KGIRKPATRICK RAM M.D. COMPREHENSIVE METABOLIC [id number] 05:46:00* Test Item Value Reference Range Interpretation [...] (test code = RBCMOR) NORMAL HEPATITIS C [id number] 08:30:00* Test Item Value Reference Range Interpretation Comme nts HCAB (test code = HCAB) REACTIVE NON-REACTIVE A HEPATITIS B SURFACE [id number] 05:09:00* Test Item Value Reference Range Interpretation [...] (test code = RBCMOR) NORMAL COMPREHENSIVE METABOLIC [id number] 04:51:00* Test Item Value Reference Range Interpretation [...] 145 IU/L <=78 H PRO TIME AND [id number] 04:51:00* Test Item Value Reference Range Interpretation [...] LMW Heparin. Order Code is ANTI-XA U/S [id number] 18:21:46Right upper quadrant ultrasoundLocation Code: [id number] HISTORY: Elevated LFTsTechnique: Grayscaleand selected color Doppler [...] IMPRESSION: Previous cholecystectomy and otherwise unremarkable exam.LACTIC [id number] 09:27:00* Test Item Value Reference Range Interpretation Comme nts LACTIC ACD (test code = LA) 0.7 mmol/L 0.4-2.0 COMPREHENSIVE METABOLIC [id number] 09:16:00* Test Item Value Reference Range Interpretation [...] RBCMOR) NORMAL XR FOREARM RIGHT AP & [id number] 08:15:30Location of dictation: Y2Gybsb forearm 2 viewsHISTORY: Pain with abscess.COMMENT: There is normal alignment without fractures or dislocations. The jointspaces are normal. There is significant soft tissue swelling with soft tissueair along the ventral ulnar aspect of the right forearm compatible withcellulitis and abscess. No radiopaque foreign body seen.IMPRESSION: Large soft tissue abscess of the right forearm with cellulitis. Notes Date/Time Note Provider Source Referral ID Status Reason Start Date Expiration Date Visits Requested Visits Authorized [id number] Authorized Specialty Services Required 02/24/2025 05/25/2025 [id number] 09:54:51* [place] [id number] 09:54:51 [place] [id number] 09:54:51* Patient Instructions* Akil Mendez DO - 02/24/2025 9:53 AM CDT Neck swelling-mass/oropharyngeal dysphagia/submandibular adenopathy: - More pronounced on the right side. - Physical exam: Submandibular lymphadenopathy and right-sided neck swelling. - Order neck ultrasound and blood work - Refer to ENT specialist to further evaluate and address. - Possible CAT scan of neck if ultrasound shows abnormalities. Await recommendations from ENT Emphysema: - Managed by pulmonology. Continue albuterol as needed. - Advair 1 puff twice daily. Hepatitis C: - Will start start Epclusa pending approval. She reports that this was recently approved - Managed by GI doctor. Insomnia: - Managed by sleep medicine. Continue quetiapine 50 mg daily, temazepam 15 mg nightly as needed, and trazodone 100 mg nightly. Hot flashes: - Continue gabapentin 400 mg three times daily. GERD: - Managed by GI. Had EGD done this year. - Continue Protonix 40 mg daily. Allergic rhinitis: - Continue Flonase as needed. - Claritin occasionally. Tobacco abuse: - Tobacco cessation addressed. Patient has been given nicotine patch in the past. [facility]2025-09-23 09:54:51* Akil Mendez DO - 02/24/2025 9:30 AM CDT Images from the original note were not included. Patient and patient’s participants in attendance, if any, consented to the use of [employer] ([employer]), a new technology product that uses artificial intelligence to assist the provider to document the patient encounter and to record this visit. Chief Complaint OTHER (Patient complains of neck swelling bilateral patient states the swelling has been going on for over a year. Today's concern is swelling on the right side of throat not going down.) History of Present Illness Brice Delatorre is a(n) 49 year old female with a past medical history as documented below who presents today for evaluation of OTHER (Patient complains of neck swelling bilateral patient states the swelling has been going on for over a year. Today's concern is swelling on the right side of throat not going down.) . History of Present IllnessThe patient presents for evaluation of neck swelling. Neck Swelling- Persistent bilateral neck swelling, more pronounced on the right side, ongoing for 1-2 years. Recently worse. 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 Hepatitis C- History of hepatitis C, scheduled to start Epclusa pending approval Respiratory Issues- Uses albuterol as needed and Advair 1 puff twice daily for emphysema - Uses Flonase as needed and Claritin occasionally for allergies Hot Flashes- Takes gabapentin 400 mg 3 times daily for hot flashes Insomnia- Takes Seroquel 50 mg daily, temazepam 50 mg as needed, and trazodone 100 mg daily Tobacco- Smokes one cigarette daily PAST SURGICAL HISTORY- Gallbladder removal - Colonoscopy with removal of two spots, one precancerous Results - Labs: - Blood count: 10/23/2024, Normal - Creatinine: 10/23/2024, 0.7 - Liver function tests: 10/23/2024, High - GFR: 10/23/2024, 94 - Imaging:- CAT scan of chest: 07/2024, Unremarkable thyroid gland and thoracic outlet, normal heart, trachea, and bronchial tubes. No axillary, mediastinal, or hilar adenopathy. - CT of the abdomen: 10/2024, Mild hepatic steatosis, unremarkable spleen and pancreas. Sleep medicine note 02/13/2025:Assessment/Plan: Chronic insomnia. Not controlled.- counseled at length on sleep hygiene, stim control, sleep restriction - bt 130a, rt 8a. - d/c quetiapine - rx trazodone 50mg - can continue on temazepam 15mg Former smoker- next lung cancer screening jul 2024 F/u 3 months Pulmonology note 12/22/2024: ReviewedAssessment and plan: - Severe chronic insomnia since teenage with difficulty initiating sleep: We discussed sleep hygiene in detailShe has to stop ALL caffeinated beverages Keep a sleep diary Stop melatonin Renew temazepam 15 to 30 mg nightly Stop quetiapine given the side effects Hopefully with stopping caffeinated beverages, we should be able to taper these off Refered to behavioral health,? Underlying disease that could be leading to insomnia such as depression or anxiety although she does not have significant symptoms Advised to avoid polypharmacy - Smoker,, more than 52-lwft-xtjoQbitiba smoking 2 days ago Recent low-dose CT showed mild emphysema Mild dyspnea with exertion, start albuterol as needed Spirometry was normal The importance of smoking cessation was stressed Annual low-dose CT for lung cancer screening Follow-up in 3 months Bebe Pacheco, MDPulmonary and Critical Care Medicine CT Abdomen pelvis w contrastOrder: [id number] Impression Impression:Very trace free fluid in the pelvis. Cholecystectomy and hysterectomy. AF: [id number] End of Report Narrative Exam: CT ABDOMEN PELVIS W CONTRAST, 10/23/2024 8:30 PM. Ordering Physician: YULY SAUCEDO. History: Abdominal pain, acute, nonlocalized. Technique: CT ABDOMEN PELVIS W CONTRAST. Coronal and sagittal reconstructed images were obtained. CT was performed according to ALARA (As Low As Reasonably Achievable). Technical Quality: Adequate. Comparison: CT abdomen and pelvis 06/29/2024. Findings:Bilateral lower lobe minimal dependent subsegmental atelectasis. Left upper lobe and right middle lobe minimal chronic scarring. [...] no obstructive uropathy nor renal mass. Small focal concavity or a subcentimeter low-attenuation lesion in the right kidney upper pole is too small to characterize. Minimal calcified atherosclerotic plaque in the normal caliber abdominalaorta. Unremarkable inferior vena cava. No abdominal nor pelvic lymphadenopathy. No dilated bowel loops. Circumferential wall thickening of bilateral upper abdominal small bowel loops secondary to underdistention or enteritis. Portions of the rectum and the colon are not distended. Distal rectal wall measures 1 cm in thickness. Proximal to distal rectal circumferential wall thickening secondary to underdistention or proctitis. The normal [...] osseous abnormality. Minimal levoconvex curvature of the lumbarSpine CT CHEST WITHOUT BGASTIRE35/21/2025 11:55 AM Order #: [id number] Performing Department: Wall CT DIAGNOSIS: Left lower lobe pulmonary nodule [R91.1 (ICD-10-CM)] Result Narrative: CT of the Chest HISTORY: Abnormal CT (non-chest) - lung nodule (Age >= 35y) TECHNIQUE: Axial images of the chest were obtained from the thoracic inlet tothe upper abdomen without intravenous contrast. CT dose lowering technique utilized, with adjustment of MA/kV according to patient size and automated exposure control. COMPARISON: Report of outside CT abdomen and pelvis June 29, 2024 FINDINGS: The thyroid gland and thoracic inlet are unremarkable. Heart size is normal. Aorta and great vessels are unremarkable. Trachea and mainstem bronchi are patent. No axillary, mediastinal or hilar adenopathy. Mild apical centrilobular and paraseptal emphysema. Punctate benign calcified left apical granuloma. No suspicious lung nodules or acute pneumonia. No pleural or pericardial effusion. Visualized images of the upper abdomen demonstrate no abnormality. No rib fracture or destructive bone lesion appreciated. IMPRESSION: Negative CT chest. Mild emphysema. No lung nodules. Dictated by: Mati Alberts MD 07/25/2024 Current Medications Current Medications[1] Past Medical History Past Medical History[2] Past Surgical History Past Surgical History:Procedure Laterality Date C SECTION 1992 once CHOLECYSTECTOMY TOTAL ABDOMINAL HYSTERECT W/WO RMVL TUBE OVARY TUBAL LIGATION 1999 Family Medical History Family History[3] Social History Social History[4] Review of Systems Review of Systems Physical Exam BP 112/66 (Side: Left Arm, Position: SITTING, Cuff Size: Medium Adult) | Pulse97 | Temp 96.9 ?F (36.1 ?C) (Tympanic) | Resp 16 | Ht 5' 2" (1.575 m) | Wt 129 lb (58.5 kg) | LMP 05/08/2024 (Approximate) | SpO2 100% | BMI 23.59 kg/m? General: Alert, Conversant, cooperative, oriented x3.HEENT: Head atraumatic. Extraocular movements intact. Ears atraumatic. Nares patent. Oropharynx moist. Dentition appears normal. Neck: Supple. Soft tissue mass noted to the right neck region. It is soft and mobile. Submandibular adenopathy noted. Heart: Regular rate and rhythm. No murmurs. Lungs: Clear to auscultation bilateral. Abdomen: Soft, nontender, nondistended. Extremities: Good range of motion to all extremities. No focal deficits. Skin: Normal skin turgor. Skin appears dry. No significant edema. Neuro: No focal deficits. Mental: Patient appears in good mood. Intact judgement and insight. Patient interactive and appropriate. Assessment and Plan 1. Gastroesophageal reflux disease without esophagitis- Pantoprazole Sodium 40 MG oral Tablet Delayed Response; Take 1 tablet (40 mg total) by mouth daily. 2. Oropharyngeal dysphagia- US NECK & HEAD; Future - REFERRAL TO OTOLARYNGOLOGY- .[facility] - CBC WITH DIFFERENTIAL; Future - COMP. METABOLIC PANEL (14); Future 3. Localized swelling, mass or lump of neck- US NECK & HEAD; Future - REFERRAL TO OTOLARYNGOLOGY- .[facility] - CBC WITH DIFFERENTIAL; Future - COMP. METABOLIC PANEL (14); Future 4. Tobacco abuse- REFERRAL TO OTOLARYNGOLOGY- .[facility] 5. Hepatitis C virus infection without hepatic coma, unspecified chronicity 6. Hepatic steatosis Assessment & Plan Neck swelling-mass/oropharyngeal dysphagia/submandibular adenopathy: - More pronounced on the right side. - Physical exam: Submandibular lymphadenopathy and right-sided neck swelling. - Order neck ultrasound and blood work - Refer to ENT specialist to further evaluate and address. - Possible CAT scan of neck if ultrasound shows abnormalities. Await recommendations from ENT Emphysema:- Managed by pulmonology. Continue albuterol as needed. - Advair 1 puff twice daily. Hepatitis C:- Will start start Epclusa pending approval. She reports that this was recently approved - Managed by GI doctor. Insomnia:- Managed by sleep medicine. Continue quetiapine 50 mg daily, temazepam 15 mg nightly as needed, and trazodone 100 mg nightly. Hot flashes:- Continue gabapentin 400 mg three times daily. Allergic rhinitis:- Continue Flonase as needed. - Claritin occasionally. GERD:- Managed by GI. Had EGD done this year. - Continue Protonix 40 mg daily. Tobacco abuse:- Tobacco cessation addressed. Patient has been given nicotine patch in the past. Follow-up:- In 4 weeks. Questions answered. Instructions/handouts given. Risks and benefits of any prescription medicines, including any side effects, addressed in detail with the patient. Patient understands and agrees with plan of care. Follow-Up Return in about 4 weeks (around 03/24/2025) for Neck mass/Swelling. AKIL MENDEZ DO [1]Current Outpatient Medications Medication Sig Dispense Refill Gabapentin 400 MG oral Capsule Take 1 capsule (400 mg total) by mouth 3 times daily. 270 capsule 1 Lyllana 0.1 MG/24HR transdermal PATCH BIWEEKLY Nicotine 21 MG/24HR transdermal PATCH [address] 1 patch onto the skin in the morning. Pantoprazole Sodium 40 MG oral Tablet Delayed Response Take 1 tablet (40 mg total) by mouth daily. Progesterone 200 MG oral Capsule 1 capsule (200 mg total) nightly. Quetiapine Fumarate 50 MG oral Tablet Take 1 tablet (50 mg total) by mouth nightly. 90 tablet 1 Temazepam 15 MG oral Capsule Take 1 capsule (15 mg total) by mouth nightly as needed for sleep. 30 capsule 2 Trazodone HCl 50 MG oral Tablet Take 2 tablets (100 mg total) by mouth nightly. 60 tablet 5 Albuterol HFA 108 (90 Base) MCG/ACT IN AERS Inhale 2 puffs into the lungs every 6 hours as needed for wheezing or shortness of breath. 1 each 3 FLUTICASONE PROPIONATE, NASAL, 50 MCG/ACT nasal Suspension Use 1 spray (50 mcg total) in each nostril 2 times daily. 16 mL 0 Fluticasone-Salmeterol (Advair Diskus) 100-50 MCG/ACT inhalation AEROSOL POWDER, BREATH ACTIVATED Inhale 1 puff into the lungs 2 times daily. 60 each 0 Loratadine (CLARITIN) 10 MG oral tablet Take 1 tablet (10 mg total) by mouth daily. No current facility-administered medications for this visit.[2] Past Medical History: Diagnosis Date Fatty liver Fibroids History of hysterectomy 2024 due to fibroids History of kidney stones Insomnia Left lower lobe pulmonary nodule Tobacco abuse [3] Family History Problem Relation Name Age of Onset Cancer Mother unknown [4] Social History Socioeconomic History Marital status: Significant Other Number of children: 3 Highest education level: GED or equivalent Tobacco Use Smoking status: Former Current packs/day: 0.00 Average packs/day: 1 pack/day for 37.0 years (37.0 ttl pk-yrs) Types: Cigarettes Start date: 1987 Quit date: 2024 Years since quittin.7 Smokeless tobacco: Never Tobacco comments: Pt. States she quit smoking 2 days ago. Vaping Use Vaping status: Every Day Passive vaping exposure: Yes Substance and Sexual Activity Alcohol use: Not Currently Drug use: Never Sexual activity: Yes control/protection: Tubal Ligation [facility]2025-09-23 09:54:51Upcoming Encounters Scheduled Orders Name Type Priority Associated Diagnoses Orde r Schedule US NECK & HEAD Imaging Routine Oropharyngeal dysphagia Localized swelling, mass or lump of neck Expected: 02/24/2025, Expires: 02/24/2026 CBC WITH DIFFERENTIAL Lab Routine Oropharyngeal dysphagia Localized swelling, mass or lump of neck Expected: 02/24/2025, Expires: 05/25/2025 COMP. METABOLIC PANEL (14) Lab Routine Oropharyngeal dysphagia Localized swelling, mass or lump of neck Expected: 02/24/2025, Expires: 05/25/2025 Scheduled Referrals Name Type Priority Associated Diagnoses Orde r Schedule REFERRAL TO OTOLARYNGOLOGY- .AZC Referral Routine Oropharyngeal dysphagia Localized swelling, mass or lump of neck Tobacco abuse Ordered: 02/24/2025 Health Maintenance Due Date Last Done Comments CT Colonography 1974 FIT Tests 1974 Sigmoidoscopy 1974 Pneumococcal Vaccine: 50+ Ye ars (1 of 2 - PCV) 1993 Lipid Panel 1994 Mammogram 2014 Physical Exam 06/16/2025 06/16/2024 Lung Cancer Screening 07/25/2025 07/25/2024 Cologuard 01/29/2027 01/30/2024, 01/30/2024 Tdap Vaccines 11/11/2034 11/11/2024 COLONOSCOPY 02/03/2035 02/03/2025, 06/15/2023 Colorectal Cancer Screening 02/03/2035 RSV Vaccines Completed 12/31/2024 Influenza Vaccines Completed 02/19/2025 Zoster Vaccines Completed 02/19/2025, 11/11/2024 [facility] [id number] 09:54:51 Diagnosis Oropharyngeal dysphagia - Primary Dysphagia, oropharyngeal phase Gastroesophageal reflux disease without esophagitis Esophageal reflux Localized swelling, mass or lump of neck Swelling, mass, or lump in head and neck Tobacco abuse Tobacco use disorder Hepatitis C virus infection without hepatic coma, unspecified chronicity Hepatic steatosis Other chronic nonalcoholic liver disease Other emphysema (multi HCC) Other emphysema Primary insomnia Persistent disorder of initiating or maintaining sleep Submandibular lymphadenopathy Enlargement of lymph nodes Hot flashes Symptomatic menopausal or female climacteric states Seasonal allergic rhinitis d ue to pollen [facility]2025-09-23 09:54:51 [place] [id number] 09:24:57 Chief Complaint Patient presents with OTHER Patient complains of neck swelling bilateral patient states the swelling has been going on for over a year. Today's concern is swelling on the right side of throat not going down. Care gaps addressed with patient and provider. Aaron Gavin MA [facility] [id number] 16:27:52* [place] [id number] 16:27:52 [facility] [id number] 16:27:52* Patient Instructions* Mary Goodman MD - 02/13/2025 4:27 PM CDT - No TV or reading in bed - No caffeine after morning - Eliminate/reduce alcohol and nicotine - Daily exercise - at least 3-4 hours prior to bedtime - Resolve to address worries the next day - Avoid light-emitting screens prior to bedtime - Optimize the bedroom environment - eliminate noise, light; keep room cool - Strict bed and strict wake time - Wake time 8am - Bed time 130am - No naps - Get out of bed if cannot sleep more than 20 minutes - Keep sleep log Progressive Muscle Relaxation: This is a technique by which the patient consciously relaxes all the muscles in their body. It involves the following steps: - Lay down in bed in a comfortable position [preferably on your back with arms by your side] - Clench your fists very tightly for 20-30 seconds and appreciate the tension in the muscles of your fingers - Then relax your fist and open your hands. Appreciate the relaxation you feel in the muscles of your fingers. - In your mind, say the following words as you consciously relax the muscles in your fingers "relax, let go, relax completely, let all the muscles in my fingers relax". Take a few minutes to consciously relax the muscles in your fingers - When your finger muscles are completely relaxed, allow that relaxation to spread from the muscles of the fingers to the muscles of your hands. Once again repeat the following words in your mind as you consciously relax the muscles in your hand "relax, let go, relax completely, let on the muscles in your hand relax". Take a few minutes to relax on the muscles in your hands. - Then allow the relaxation to spread from the muscles of your hands to the muscles of your forearms. Go through the same process of relaxation by repeating the words in your mind "relax, let go, relax completely, let all the muscles of the forearm relax". - After your forearms are relaxed, spread the relaxation to the muscles of your arm and repeat the process. Then spread the relaxation to the muscles of the shoulders and subsequently to your neck, face, scalp, front of your chest, back of your chest, front of abdomen, back of abdomen, hips, thighs, legs, feet and toes. - When you have relaxed the muscles in your toes, your entire body is now relaxed. Then go through an additional 10 steps of relaxing a body further, by counting down from 10 to 0 and repeating the words "relax, let go, relax completely, let all the muscles in my body relax". - When you have counted down to 0, your entire body is maximally relaxed. Stay in the state of complete relaxation for 10-15 minutes and visualize your body as light and floating on a cloud. You can use other images such as laying in a state of complete peace on a beach or in a meadow. - At the end of the 10-15 minutes of complete relaxation, bring the tone back into muscles by counting up from 0-10. At each step, increase the tone in the muscles all over the way body, till by the count of 10 your body muscles are at their customary tone. - The entire exercise takes 30-40 minutes on average. Many people will follow sleep [facility] through - which is fine! [facility]2025-09-12 16:27:52* Mary Goodman MD - 02/13/2025 4:01 PM CDT Images from the original note were not included. Chief Complaint: f/u Accompanied by: self Video visit HPI: Former 30 pack year smoker quit 01/2025 with hx of insomnia 02/13/25, bed time 8-830p - puts a movie on, taking quetiapine 830p, temazepam 15mg and melatonin 900-930p, tv off 930-10p and sleeps. Takes gabapentin 400mg 1-2 times a day for hot flashes. Wakes around 12am. Feels like she is awake most of the time, dozing occasionally, lies in bed, gets out of bed between 4-6am. Naps for an hour every other day. Has one coffee or monster in the morning. Has tried lunesta in past - ineffective. Tried trazodone in past. PMH, PSH, FH, Social history, Medications reviewed and updated There were no vitals filed for this visit. Data: PFT No data to display Assessment/Plan: Chronic insomnia. Not controlled.- counseled at length on sleep hygiene, stim control, sleep restriction - bt 130a, rt 8a. - d/c quetiapine - rx trazodone 50mg - can continue on temazepam 15mg Former smoker- next lung cancer screening jul 2024 F/u 3 months [facility]2025-09-12 16:27:52Upcoming Encounters Health Maintenance Due Date Last Done Comments CT Colonography 1974 FIT Tests 1974 Sigmoidoscopy 1974 Pneumococcal Vaccine: 50+ Ye ars (1 of 2 - PCV) 1993 Lipid Panel 1994 Mammogram 2014 Zoster Vaccines (2 of 2) 01/06/2025 11/11/2024 COVID-19 Vaccine (1 - season) 2025 Influenza Vaccines (#1) 2025 Physical Exam 06/16/2025 06/16/2024 Lung Cancer Screening 07/25/2025 07/25/2024 Cologuard 01/29/2027 01/30/2024, 01/30/2024 Tdap Vaccines 11/11/2034 11/11/2024 COLONOSCOPY 02/03/2035 02/03/2025, 06/15/2023 Colorectal Cancer Screening 02/03/2035 RSV Vaccines Completed 12/31/2024 [facility]2025-09-12 16:27:52 Diagnosis Chronic insomnia - Primary Insomnia, unspecified Smoker Tobacco use disorder [facility]2025-09-12 16:27:52 [facility]2025-08-14 09:53:04* Consultation (Routine) - Authorized Specialty Diagnoses / Procedures Referred By Rosette t Referred To Contact Otolaryngology Diagnoses Sore throat Procedures OFFICE/OUTPATIENT [facility] 60 MINUTES Gustabo Soliz PA-C [address] [place] [address] Phone: tel: fax: Marian Jones MD [address] [place] [id number] Phone: tel: fax: Referral ID Status Reason Start Date Expiration Date Visits Requested Visits Authorized [id number] Authorized Service Not Available at Clinic 01/15/2025 04/15/2025 1 1 Valerie [id number] 09:53:04* IsabelMelodie [id number] 09:53:04 [facility] [id number] 09:53:04* Gustabo Soliz PA-C - 01/15/2025 9:03 AM CDT SADIE Delatorre is a 49 year old female is here today for a follow up for discharge from the ER on 01/10/2025. The patient was discharged with a final diagnosis of sore throat. Went to the ER with sx of sore throat nominal pain, nausea, left sided facial pressure/headache on Sunday CT of the head and sinuses were obtained and were unremarkable. CT of the abdomen and pelvis was obtained and was unremarkable other than diffuse hepatic steatosis. Strep throat swab was obtained and was negative. Patient was started on amoxicillin for presumed diagnosis of strep throat. Also given steroid pack. Both have been finished. The patient was treated with IV morphine, Zofran, IV fluids, Tylenol Was recommended to follow up with PCP. She is still having left sided ear and sinus pain as well as a persistent sore throat. She reports some issues with trouble breathing, but this is more from her lungs not from a throat obstruction. She has a history of mild emphysema for which she sees manager client service and takes albuterol as needed. She has been needing the albuterol inhaler 2-3 times per day and symptoms are still not quite controlled. The patient is currently at home and since discharge is unchanged. The hospital discharge notes were reviewed and the medicine list has been reconciled with the outpatient medication list. Based on this review the following changes were noted all medications at discharge have been completed and discontinued. Relevant Labs/Imaging reviewed: In sinuses, CT abdomen and pelvis reviewed and scanned to media along with ER note. Current Medications: Current Medications[1] Allergies: Allergies[2] Problem List: Patient Active Problem List Diagnosis Fibroids History of kidney stones Insomnia Well adult exam Hepatic steatosis History of hysterectomy Other emphysema (multi HCC) Hepatitis C History of tobacco use Pain in both feet Pertinent History: Past Medical History[3] Past Surgical History: Procedure Laterality Date C SECTION 1992 once CHOLECYSTECTOMY TOTAL ABDOMINAL HYSTERECT W/WO RMVL TUBE OVARY TUBAL LIGATION 1999 Social History[4] Review of Systems Review of Systems Constitutional: Negative for activity change, chills, diaphoresis and fever. HENT: Positive for dental problem (not up to date with dental follow up), ear pain, sinus pressure, sinus pain and sore throat. Negative for facial swelling. Eyes: Negative for visual disturbance. Respiratory: Positive for wheezing. Negative for chest tightness and shortness of breath. Cardiovascular: Negative for chest pain, palpitations and leg swelling. Gastrointestinal: Positive for diarrhea. Neurological: Negative for syncope, light-headedness and headaches. Physical Exam BP 118/82 (Side: Left Arm, Position: SITTING, Cuff Size: Medium Adult) | Pulse 68 | Temp 98 ?F (36.7 ?C) (Oral) | Resp 18 | Ht 5' 2" (1.575 m) | Wt 128 lb 8 oz (58.3 kg) | LMP 05/08/2024 (Approximate) | SpO2 99% | BMI 23.50 kg/m? Physical Exam Constitutional: General: She is not in acute distress. Appearance: Normal appearance. HENT: Head: Normocephalic and atraumatic. Right Ear: Tympanic membrane, ear canal and external ear normal. Left Ear: Tympanic membrane, ear canal and external ear normal. Nose: Nose normal. No congestion or rhinorrhea. Mouth/Throat: Pharynx: Posterior oropharyngeal erythema present. No oropharyngeal exudate. Comments: No abscess, exudate, or enlarged tonsils. Poor dentition, but no dental abscesses noted. Eyes: Conjunctiva/sclera: Conjunctivae normal. Cardiovascular: Rate and Rhythm: Normal rate. Pulses: Normal pulses. Heart sounds: No murmur heard. Pulmonary: Effort: Pulmonary effort is normal. No respiratory distress. Breath sounds: No stridor. No wheezing, rhonchi or rales. Comments: Negative egophany Neurological: General: No focal deficit present. Mental Status: She is alert. Psychiatric: Mood and Affect: Mood normal. Behavior: Behavior normal. Thought Content: Thought content normal. Judgment: Judgment normal. Assessment & Plan 1. Other emphysema (multi HCC) - Albuterol HFA 108 (90 Base) MCG/ACT IN AERS; Inhale 2 puffs into the lungs every 6 hours as needed for wheezing or shortness of breath. Dispense: 1 each; Refill: 3 - FLUTICASONE PROPIONATE, NASAL, 50 MCG/ACT nasal Suspension; Use 1 spray (50 mcg total) in each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 Report Impression - Status: SIGNED Entered: 07/01/2024 3470 IMPRESSION: Pelvic abscess drainage catheter placement under [...] Started on IV antibiotic Appreciate help from EMBEDDED HARDWARE ENGINEER Consult IR for aspiration Will obtain cultures Monitor CBC daily GI/DVT prophylaxis Advanced directive full code IR consult appreciated Status post aspiration Awaiting cultures Monitor closely Discussed with Dr. Montenegro Awaiting cultures at 1249 RPT #: [id number] END OF REPORT [id number] 10:03:00 [facility] [place] [facility]) Hospitalist Progress Note REPORT#:[id number] REPORT STATUS: Signed REPORT INITIALIZATION DATE:07/01/24 TIME:1003 PATIENT: BRICE DELATORRE UNIT #: [id number] ROOM/BED: [facility]06-1 : 74 AGE: 48 SEX: F ATTEND: Levon Hurley MD ADM AUTHOR: Levon Hurley MD REPT SERVICE DT/TIME: 07/01/24 1003 * ALL edits or amendments must be made on the electronic/computer document * Subjective Chief complaint: Abdominal Pain HPI: 48-year-old female, postop day 6 status post laparoscopic hysterectomy who was transferred from [facility] for a postoperative vaginal cuff abscess. The patient complains of pelvic pain and bilateral lower abdominal pain associated with fever, 101.3 Fahrenheit at home. She was seen at [facility] emergency department and had a CT which [...] SPECIAL PROCEDURES - SP PERC DRAIN 07/01 7796 Report Impression - Status: SIGNED Entered: 07/01/2024 4811 IMPRESSION: Pelvic abscess drainage catheter placement under [...] Started on IV antibiotic Appreciate help from EMBEDDED HARDWARE ENGINEER Consult IR for aspiration Will obtain cultures Monitor CBC daily GI/DVT prophylaxis Advanced directive full code IR consult appreciated Status post aspiration Awaiting cultures Monitor closely at 1248 RPT #: [id number] END OF REPORT [id number] 19:19:[id number] [facility] [address] [place] [address] PATIENT NAME: BRIEC DELATORRE ADMIT DATE: 06/29/24 ACCOUNT NO: [id number] ROOM NO: [facility]06 AGE: 49 REPORT TYPE: CONSULTATION SEX: F ADMITTING PHYSICIAN: Levon Hurley MD ATTENDING PHYSICIAN: Levon Hurley MD CONSULTATION DATE: 06/30/2024 REASON FOR CONSULTATION: A 1-week postop with a pelvic collection suspicious for a pelvic abscess, leukocytosis, transferred from [facility] in [place] for these diagnoses. HISTORY OF PRESENT ILLNESS: The patient is a 48-year-old postop day #8 today with complaints of pelvic pain and a fever of 102 that took her to the emergency room yesterday. The patient had reported nausea and was called in [facility] on Sunday at the close of office [...] Sunday, she went to the hospital at [place], and was diagnosed with a pelvic collection on CT scan and a white count of 15.6. After I received a call from the transfer center at [facility], I was connected with the ER attending at [facility]. We discussed the patient's case and [...] hours since yesterday, which was started at [facility] and continued to clinically improve with [...] Date Transcribed: 06/30/2024 23:07:02 CONNIE Receipt ID: [id number] Authenticated by Saulo Montenegro MD On 2024 06:40:54 PM at 0640 PATIENT NAME: BRICE DELAOTRRE 10:42:00 [facility] Hospitalist Progress Note REPORT#:[id number] REPORT STATUS: Signed REPORT INITIALIZATION DATE:06/30/24 TIME:104 PATIENT: BRICE DELATORRE UNIT #: [id number] ROOM/BED: [place] [address] : 74 AGE: 48 SEX: F ATTEND: Levon Hurley MD ADM AUTHOR: Levon Hurley MD REPT SERVICE DT/TIME: 06/30/24 1042 * ALL edits or amendments must be made on the electronic/computer document * Subjective Chief complaint: Abdominal Pain HPI: 48-year-old female, postop day 6 status post laparoscopic hysterectomy who was transferred from [facility] for a postoperative vaginal cuff abscess. The patient complains of pelvic pain and bilateral lower abdominal pain associated with fever, 101.3 Fahrenheit at home. She was seen at [facility] emergency department and had a CT which showed a large lobulated vaginal cuff abscess. Dr. [place]ett was consulted and [facility] to [facility] [...] 92 06/29 2044 90 108/78 90 92 06/29 2035 87 98/75 84 94 06/29 2017 81 [...] name: Assessment completed: Results Findings/Data: Laboratory Tests 06/30/24356: [Embedded Image Not Available] 06/30/24355: [Embedded Image Not Available] Laboratory Tests 06/30 [...] (0.8 - 1.2 INR Unit) 1.16 PTT (Sree) (26 - 35 SECONDS) 32.2 PT Patient/Control [...] (Auto) (20.5 - 51.1 %) 9.3 L [place] % (Auto) (1.7 - 9.3 %) 6.7 Eos % (Auto) (0.0 - 6.0 %) 1.0 Baso % (Auto) (0.0 - 2.0 %) 0.3 Neut # (Auto) (1.8 - 7.6 K/mm3) 11.2 H Lymph # (Auto) (0.6 - 3.2 K/mm3) 1.3 [place] # (Auto) (0.3 - 1.1 K/mm3) 0.9 Eos # (Auto) (0.0 - 0.4 K/mm3) 0.1 Baso # (Auto) (0.0 - 0.1 K/mm3) 0.0 Abs Immat Gran (auto) (0.00 - 0.03 x10 3/uL) 0.07 H Immature Gran % (0.0 - 5.0 %) 0.5 Nucleated RBC % (0.0 - 1.0 /100WBC%) 0.0 Radiology data: Recent Impressions: RADIOLOGY - XR CHEST 1 V 06/30 9902 Report Impression - Status: SIGNED Entered: 06/30/2024 [...] Started on IV antibiotic Appreciate help from EMBEDDED HARDWARE ENGINEER Consult IR for aspiration Will obtain cultures Monitor CBC daily GI/DVT prophylaxis Advanced directive full code at 1114 RPT #: [id number] END OF REPORT [id number] 21:46:[address] [facility] Hospitalist History Physical REPORT#:[id number] REPORT STATUS: Signed REPORT INITIALIZATION DATE:06/29/24 TIME:2145 PATIENT: BRICE DELATORRE UNIT #: [id number] ROOM/BED: S206-1 : 73 AGE: 48 SEX: F ATTEND: Levon Hurley MD ADM AUTHOR: Levon Hurley MD REPT SERVICE DT/TIME: 06/29/242145 * ALL edits or amendments must be made on the electronic/computer document * History of Present Illness HPI Chief complaint: Abdominal Pain HPI: 48-year-old female, with postop day 6 status post laparoscopic hysterectomy who was transferred from [facility] for a postoperative vaginal cuff abscess. The patient complains of pelvic pain and bilateral lower abdominal pain associated with fever, 101.3 Fahrenheit at home. She was seen at [facility] emergency department and had a CT which [...] Started on IV antibiotic Appreciate help from EMBEDDED HARDWARE ENGINEER Consult IR for aspiration Will obtain cultures Monitor CBC daily GI/DVT prophylaxis Advanced directive full code at 1116 RPT #: [id number] END OF REPORT [id number] 19:33:00 [facility] ([facility]) EMERGENCY PROVIDER REPORT REPORT#:[id number] REPORT STATUS: Signed DATE:06/29/24 TIME:1932 PATIENT: BRICE DELATORRE UNIT #: [id number] ROOM/BED: [place] [address] : 74 AGE: 48 SEX: F PCP [...] post laparoscopic hysterectomy who was transferred from [facility] for a postoperative vaginal cuff abscess. The patient complains of pelvic pain and bilateral lower abdominal pain associated with fever, 101.3 Fahrenheit at home. She was seen at [facility] emergency department and had a CT which showed a large lobulated vaginal cuff abscess. Dr. Puckett was consulted and recommended transfer to [facility] for further management External records reviewed from transferring hospital [facility]: Patient received morphine 4 mg x 2 [...] 06/29 1921 Pulse 80 06/29 1921 Resp 06/29 Last Documented: Result Date Time Pulse Ox 99 06/29 1921 B/P 114/77 06/29 1921 B/P Mean 89 06/29 1921 O2 Delivery Room air 06/29 1921 Temp 36.9 06/29 1921 Pulse 80 06/29 1921 Resp 06/29 Review of Vital Signs Reviewed Free Text [...] post laparoscopic hysterectomy who was transferred from [facility] for a postoperative vaginal cuff abscess I spoke with the patient's observer electrical prospecting, Dr. Montenegro, who recommended admission for IR [...] Hospitalize Hosp Physician Name Levon Hurley MD [facility] Physician Hospitalist Request Time 1957 Request Date 06/29/24 )( Accepts Hospitalization Yes )( Reason for Hospitalization drainage of vaginal cuff abscess, sepsis )( Accepted Time 1999 )( Accepted Date 06/29/24 Call Information will see patient at 0035 RPT #: [id number] END OF [id number] 18:36:22 Patient transferred to [facility] ED for diagnosis of post surgical abscess Patient agrees to transfer/admit plan and verbalized understanding of plan of care, family aware of plan Patient awake alert, oriented, resp reg unlabored, skin w/d PIV patent, no s/s infiltration noted, No adverse reaction to medications given while in ED. Report given to [facility] EMS personnel Report given to physician at [facility] ER/WAITRESS TAKE OUT Adrian Peñaloza RNUTMer[facility] Health Defiance HospitalTkupaz5844-73-34 14:14:53 Pt had hysterectomy a week ago with Dr Montenegro. This morning pt had fever, pelvic pressure. She took codeine, 600mg ibuprofen and is afebrile on arrival to ED. Appears anxious. ER/WAITRESS TAKE OUT Nika Garcia RNBluffton HospitalVsoukg4650-43-55 14:04:00 [facility] Emergency Department Note Patient Name: Brice Delatorre Date of : 1975 48 year old female Treatment Room: [facility] MIREYALALITHA Primary Care Physician: Darlyn Molina Patient [...] pain following recent hysterectomy (on Sunday06/23/24 in [place]). Patient reports pain since the surgery but [...] 0.0 0.0 - 10.0 /100 WBCs NRBC x103<0.01 10*3/?L GRAN MAT (NEUT) % 86.1 % IMM GRAN % 0.40 % LYMPH % 5.2 % MONO % 7.4 % EOS % 0.6 % BASO % 0.3 % GRAN MAT x103(ANC) 13.44 (*) 1.88 - 7.09 10*3/uL IMM GRAN x1030.06 0.00 - 0.06 10*3/uL LYMPH x1030.81 (*) 1.32 - 3.29 10*3/uL MONO x1031.15 (*) 0.33 - 0.92 10*3/uL EOS x1030.09 0.03 - 0.39 10*3/uL BASO x1030.05 0.01 - 0.07 10*3/uL COMP. METABOLIC PANEL (25193) - Abnormal NA 132 (*) 135 - [...] contrast Cbc with Diff Comp. Metabolic Panel (87597) Lipase Orders Placed This Encounter Medications morpHINE [...] 06/23/24. Patient's physician is Dr. Montenegro in [place] at [facility] ([id number] [facility]). Radiology called to inform that CT abdomen/pelvis showed pelvic wall abscess. Patient initiated on zosyn. Consulted foot drill operator, who reviewed imaging. Request made to [...] with meals as needed for Alternate with Conway for pain scale 1-3. ONDANSETRON 4 MG [...] Electronically signed by: Yuly Saucedo MD 06/29/241739 [facility]2025-01-20 19:15:00 [facility] ([facility]) Brief Op Note REPORT#:[id number] REPORT STATUS: Signed REPORT INITIALIZATION DATE:06/23/24 TIME:1914 PATIENT: BRICE DELATORRE UNIT #: [id number] ROOM/BED: : 74 AGE: 48 SEX: F [...] Left oophorectomy, right ovariopexy Primary Surgeon: amber Accounting Bookkeeper(s): angela peter Anesthesia: general anesthesia Findings: minimal endo, holland master sinus in para rectal spaces, right ovariopexy Complications: none Estimated blood loss in ml's: 50 Specimens removed/altered: left ovary with cyst, jonathan tubes and uterus Urine output: 100 Approach: laparoscopic, leon Wound class: clean/contaminated Disposition: plan to D/C home Counts: Sponge count: correct Instrument count: correct Needle count: correct at 1918 RPT #: [id number] END OF REPORT [id number] 19:04:00 [facility] ([facility]) Brief Op Note REPORT#:[id number] REPORT STATUS: Signed REPORT INITIALIZATION DATE:06/23/24 TIME:1903 PATIENT: BRICE DELATORRE UNIT #: [id number] ROOM/BED: : 74 AGE: 48 SEX: F [...] rectosigmoid by Dr Mcdaniel) Primary Surgeon: amber Accounting Bookkeeper(s): angela Peter and Harry Valle Anesthesia: general [...] done, this must be discarded at 1915 [facility] #: [id number] END OF REPORT [id number] 14:43:302485-7300 [facility] [id number] [place] [id number] PATIENT NAME: BRICE DELATORRE ADMIT DATE: 06/23/24 ACCOUNT NO: [id number] ROOM NO: AGE: 49 REPORT TYPE: OPERATIVE [...] and right ovariopexy. SURGEON: Saulo Montenegro MD TELLER VAULT: Angela Peter. ANESTHESIA: General endotracheal. ESTIMATED BLOOD [...] and 2 simple angle sutures and three opnknz-wx-zvfyn in the middle, and then 2-0 V-Loc [...] was grasped single tooth tenaculum, dilated to 16-Occitan. A 3.5 cm cervical cup was introduced [...] and handed over for retrieval by my desk assistant. Anterior and posterior peritoneal flaps were [...] Vicryl suture at both ends, then three wbfuxz-sr-caygu in the middle using full thickness closure [...] Date Transcribed: 06/23/2024 20:29:57 HORACE/TOBY Receipt ID: [id number] Authenticated by Saulo Montenegro MD On 2024 06:40:07 PM at 0640 PATIENT NAME: BRICE DELATORRE 14:32:00 [facility] Post Anesthesia Evaluation REPORT#:[id number] REPORT STATUS: Signed REPORT INITIALIZATION DATE:06/23/24 TIME:1431 PATIENT: BRICE DELATORRE UNIT #: [id number] ROOM/BED: : 74 AGE: 48 SEX: F ATTEND: Saulo Montenegro MD ADM AUTHOR: Vamsi Roper MD REPT SERVICE DT/TIME: 06/23/24 143 * ALL edits or amendments must be made on the electronic/computer document * Post Anesthesia Evaluation Anes. changes from pre-op eval Level of consciousness: no change, patient awake, able to answer questions, participate in this eval. Vital signs: Last Documented: Result Date Time Pulse Ox 99 06/23 1430 B/P 147/106 06/23 1430 O2 Delivery Simple mask 06/23 143 O2 Flow Rate 6 06/23 1430 Pulse 89 06/23 1430 Resp 18 06/23 1430 Temp 36.4 06/23 0940 Cardiovascular: CV system stable, vital signs stable Respiratory/Airway: respiratory system stable, maintains without support Pain: adequately controlled Hydration: adequate Temp status: normothermic Presence of N/V: no Anesthesia complications: no at 1433 RPT #: [id number] END OF REPORT [id number] 10:32:43 Called patient to let them know they will need to come into clinic and sign a medical release form to have medical records sent to Paresh Curiel NP. Patient stated he will be in today. ER/WAITRESS TAKE OUT Ca [facility]Main [facility] Medical CenterCtugdm8450-86-03 09:25:04 Please facilitate request for xrays from [facility]. Thank You NE Cooper [facility] HospitalDvxlpy4340-16-95 14:50:30 Brice Delatorre is a 48 year old female Alba with [facility] called stating that pt states that she got x-ray done at [facility] shortly after visit (pt did not provide specific date). She states that clinic is needing to request records from [facility]. Please advise. NE OdomBluffton HospitalYdgbcy2989-27-64 14:26:20 Spoke with Alba with [facility] and notified her that the patient has not had the chest Xray done and can not be cleared until completed. Alba stated that she would notifiy the patient. NE Cooper [facility] HospitalXtsbxu0179-47-81 16:20:50 Attempt to contact [facility] to inform them pt has not been cleared. Chest x ray must be completed. NE Braswell MABluffton HospitalAlotgy8758-87-80 15:54:30 Chest x ray is part of the work up Pt smokes so its important its done [facility]2024-12-20 15:40:38 Please advise. Chest x ray still not completed. ER/WAITRESS TAKE OUT Florence Braswell MABluffton HospitalUhdjwr1010-69-76 10:55:48 Brice Delatorre is a 48 year old female Alba with [facility] called to follow up on surgery clearance.Pt surgery is 06/23/2024. Please advise. NE OdomBluffton HospitalDqtggg8557-60-62 09:55:00 Regarding: weaness in arms and legs, shaky, shortness of breath, upon taking antibiotic x 04/28 ----- Message from Patient Head Sawyer [employer] sent at 04/30/2024 9:53 AM WAITER/WAITRESS TAKE OUT ----- Weakness in arms and legs, shaky, shortness of breath, started upon taking antibiotic (sulfamethoxazole-trimethoprim) (04/28) NE Hall RNBluffton HospitalFkmlsg7245-72-46 09:55:00 Adult Triage Assessment Last Clinic Visit: [...] AND [3] present now Protocols used: Neurologic Oyxfpjw-[id number]-KQ [facility]2024-11-27 09:55:00 Have her stop bactrium will change antibiotics. The culture report is not yet in . Er precautions [facility]2024-11-27 09:55:00 Addended by: PARESH CURIEL on: 04/30/2024 05:03 PM Modules accepted: Orders [place] 528624-11-27 09:55:00 Notified patient that Paresh Curiel sent in new prescription and to discontinue the bactrim. ER precautions given for worsening of symptoms. Patient verbalizes understanding and states symptoms penny already getting a lot better. NE Dwyer RN[address]11-25 16:45:00 No lab drawn patient stated she was not fasting and will be back tomorrow.Camille Michaud 04/28/2024 4:04 PM ER/WAITRESS TAKE OUT Camille MichaudBluffton HospitalMneadv8751-37-21 09:20:08 Received records from [facility]. Placed in Providers box. NE JenningsBluffton HospitalMabpfx1040-39-35 10:00:56 Left voicemail for Alba. This patient is not a established in our office. NE Diop MABluffton HospitalCitlol3994-09-73 09:50:42 Alba russell/ Dr. Monte Office states they faxed a medical clearance to the office on 2023. The pt is needing medical clearance for a hysterectomy. Alba Info: CB#---[phone]/ OPT: 2 FAX#---[phone] Please Advise. NE MoellerMain Campus Medical CenterNyykti4892-42-67 18:25:30 Patient dc home. Follow up with pcp. [facility]2024-10-30 13:16:14 Patient requesting to be swabbed for flu and covid. She has been sick x 2 days with nausea, headache, and diarrhea. Mani Ruiz Isa [facility] HospitalEgrzpk3623-46-74 23:05:22 Pt given printed and verbal discharge [...] assist, in no apparent distress, Scot Vargas [facility] HospitalHxcodu6955-34-90 19:19:09 Pt presents to ED with c/o steady lower left abdominal pain. Pt rates it as 9/10. Pt also c/o 3 weeks of vaginal bleeding. Pt had hysteroscopy last and has continued to have vaginal bleeding. Pt did not notify ob/gym of bleeding. Pt states she is bleeding like a normal menstrual cycle but blood is dark. Gabapentin taken 2-3 hrs FRONT END ASSISTANT Anya Gonzalez [place] 295274-08-16 22:17:49 Pt given printed and verbal discharge [...] with steady gait, in no apparent distress, [facility] HospitalRpxuhb4195-73-98 17:18:39 Pt came in walking on steady gait states" I have a hx of kidney stones a couple mos ago, I cannot pin point where the pain is coming from but today it is worst on my left side belly radiates to my left leg, no energy and nauseous almost everyday" Not taking any meds for her kidney stones MT Annetta Silva [facility] HospitalWzynsq8176-81-49 12:45:00 Pt discharged with diagnosis of flank pain, renal stones, osteoarthritis of lumbar spine. Printed and verbal instructions reviewed with and given to patient. Prescriptions given x 2. Patient verbalized understanding of teaching, medication administration, and recommended follow-up. Denies questions or concerns at this time. Pt ambulatory at discharge. Appears in no apparent distress. No ataxia noted. Accompanied by self. T Christine Ventura [place] 295274-07-16 10:30:23 Patient arrived ambulatory c/o of left sided flank pain that started yesterday morning. Went to PCP and got medicine which hasn't helped. T Diann Lovell [place] 295274-04-26 22:44:52 Pt dc'd home ambulatory with crutches. Pt v/u of dc instructions, RICE, and follow up with pcp as needed. Makenzie Lucero [facility] HospitalJajllw5843-57-68 20:14:40 Pt arrives ambulatory to ED reporting that she was getting out of bed aprox 2 hrs FRONT END ASSISTANT, and twisted her ankle. Reports pain 10/10 on both sides of ankle and down the left side of foot to toes. Yara Atkinson [facility] HospitalNarqyq1918-03-82 01:35:00 Dc instructions and prescription reviewed with pt by Dr Montilla. Verbalized understanding. No reaction to meds noted or report. Gauze dressing to iv site. Aox4, rr even and unlabored on ra, skin warm and dry. Ambulatory with steady gait with all belongings accompanied by spouse to lobby. [facility] Richmond Sandoval [facility] HospitalNioggz5273-67-06 01:19:50 Dr Montilla at bedside [place] 528624-03-02 01:09:16 Pt resting on stretcher sleeping with spouse at bedside. RR even and unlabored on ra, skin warm and dry. No distress observed. [place] 528624-03-02 00:11:54 Pt reports not receiving ordered meds despite being pulled by previous nurse. Overrided and given by this RN per Dr Montilla [place] 528624-03-01 22:55:39 Pt resting on stretcher. Aox4, rr even and unlabored on ra, skin warm and dry. Reporting abdominal pain and discomfort. No distress observed. IV attempts x3 in triage. Pt reports she is always a difficult stick d/t prior history. US guided IV requested [place] 49816-03-01 20:35:54 Patient to Ultra sound at this time. Patient is a very hard stick. Not able to start PIV. Will have to be US guided when patient returns. [facility] Kalie Luna [place] 295274-03-01 20:35:51 RN attempted to obtain PIV access x 3 without success. Patient to US, NAD noted. Patient remains without IV access. Additional PIV access initiation attempts when patient returns from imaging. [facility] Dorinda Trinh [place] [address]757-03-01 20:16:28 Dr. Montilla at bedside. [place] [address]-03-01 19:37:23 Brice Delatorre is a 48 year [...] something else and it didn't help either. [facility] No Felix [place] 295274-01-25 01:50:05 Pt given printed and verbal discharge [...] with steady gait, in no apparent distress [facility] Danielle Garcia [facility] HospitalOvukpg0060-12-10 01:22:24 Waiting for IV fluids to infuse. [facility]2024-01-25 00:18:35 Summary: CT Waiting on IV NE GuevaraBluffton HospitalEsqxbm0675-23-24 00:05:17 CC: Pt reports 30 min FRONT END ASSISTANT she had extreme right sided abd pain [...] difficulty, amb with steady gait NE Rangel [facility] HospitalZwwnfk8732-11-59 19:22:46 Pt given printed and verbal discharge [...] with steady gait, in no apparent distress ER/WAITRESS TAKE OUT Danielle Garcia [facility] HospitalCcjjnp4296-15-21 16:49:02 Brice Delatorre is a 47 year old female c/o abnormal vaginal bleeding off and for 5 months, states bleeds for a few weeks and then stops for about 1 week, then starts again, alert in no distress, skin w/d pink, oral mucosa pink moist ER/WAITRESS TAKE OUT Chelle Cordero [facility]
[2025-02-24 18:33] LABS: Absolute Lymphocytes (CBC) 1.4 K/uL (0.7-4.9); Hematocrit 45.2 % (36.0-45.0); Hemoglobin 15.3 g/dL (12.0-15.0); MCH 29.8 pg (27.0-35.0); MCHC 33.8 g/dL (32.0-36.0); MCV 87.9 fL (80-100); MPV 7.2 fL (7.6-11.3); Nucleated RBC Absolute Count 0.0 (0-0); Nucleated Red Blood Cells % 0.1 % (0-0); RBC Red Blood Cell Count 5.14 M/uL (3.86-4.86); White Blood Count 6.50 thou/uL (4.3-10.9)
[2025-02-24 18:58] LABS: ALT/SGPT 129.0 U/L (13-56); AST/SGOT 81.0 U/L (15-37); Albumin 3.6 g/dL (3.4-5.0); Albumin/Globulin Ratio 0.7 (1.1-1.8); Alkaline Phosphatase 78.0 U/L (45-117); Anion Gap 11.2 mEq/L (5.0-15.0); BUN Blood Urea Nitrogen 13.0 mg/dL (7-18); Globulin 4.9 g/dL (2.3-3.5); Glucose Level 94.0 mg/dL (74-106); Potassium 4.2 mEq/L (3.5-5.1)
[2025-02-24] MEDS ORDERED: DIPHENHYDRAMINE 50 MG/ML VIAL ONE (18:58)
--- NOTE | 2025-02-24 19:56 | RAD REPORT ---
EXAM: Soft Tissue Neck W/Contr INDICATION: Pain;Swelling TECHNIQUE: Helical CT examination of the neck with IV contrast. Sagittal and coronal reformations wer e generated. This exam was performed according to our departmental dose-optimization program, which includes automated exposure control, adjustment of the mA and/or kV according to patient size and/or use of iterative reconstruction technique. COMPARISON: CT 06/24/2024 FINDINGS: Aerodigestive Tract Structures: Nasopharynx, oropharynx, oral cavity, larynx and hypopharynx are norm al. Lymph Nodes: No pathologic appearing cervical lymph nodes. Parotid Glands: Normal Submandibular Glands: Normal Thyroid Gland: Diffusely enlarged thyroid with bilateral thyroid nodules. The largest nodule on the r ight measures 3 cm. The largest nodule on the left measures 1.6 cm. These are similar to the prior chest CT from 06/24/2024. Included Intracranial Structures: Normal Included Orbits: Normal Paranasal Sinuses: Predominantly clear Tympanomastoid Cavities: Normal Vascular Structures: Normal Osseous Structures: No acute osseous abnormality. Included Lung Apices: Normal IMPRESSION: Diffusely enlarged multinodular thyroid, grossly similar to 06/24/2024. The thyroid tissue can be furt her evaluated with a nonemergent thyroid ultrasound if indicated. No acute findings identified. Widely patent airway.
[2025-02-24] MEDS ORDERED: MORPHINE 4 MG/ML SYR ONE (20:11)
[2025-02-24] MEDS ORDERED: ONDANSETRON 4 MG/2 ML VIAL ONE (20:11)
--- NOTE | 2025-02-24 20:35 | EDPHYS ---
Physician Documentation [facility] Name: Arinaa Delatorre Age: 49 yrs Sex: Female : 1975 Arrival Date: 02/24/2025 Time: 17:02 Bed 20 Private MD: ED Physician Germain Tate HPI: 02/24 17:17 This 49 yrs old Female presents to ER via Ambulatory with complaints of Neck dr5 Pain, >24Hrs Old, Ear Pain. 17:17 The patient or guardian complains of pain, that is chronic, swelling. The symptoms are dr5 located Right neck. Onset: The symptoms/episode began/occurred 1 week(s) ago. Patient is a 49-year-old female with insomnia coming in with right neck swelling and pain has been going on for 1 week. Patient reports that she has been having the same issues for the past 2 years on and off. Patient reports that she saw her primary care doctor this morning for the same symptoms. She reports that her doctor sent her to the emergency department for have imaging completed. Patient speaking in full sentences. 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 - Infectious Disease History:: Denies. - Social history:: Smoking status: Patient/guardian denies using tobacco. ROS: 17:17 Constitutional: as per hpi dr5 Exam: 17:17 Constitutional: This is a well developed, well nourished patient who is awake, alert, dr5 and in no acute distress. Head/Face: Normocephalic, atraumatic. Eyes: Pupils equal round and reactive to light, extra-ocular motions intact. Lids and lashes normal. Conjunctiva and sclera are non-icteric and not injected. Cornea within normal limits. Periorbital areas with no swelling, redness, or edema. ENT: Nares patent. No nasal discharge, no septal abnormalities noted. Tympanic membranes are normal and external auditory canals are clear. Oropharynx with no redness, swelling, or masses, exudates, or evidence of obstruction, uvula midline. Mucous membranes moist. Chest/axilla: Normal chest wall appearance and motion. Nontender with no deformity. No lesions are appreciated. Cardiovascular: Regular rate and rhythm with a normal S1 and S2. Normal PMI, no JVD. No pulse deficits. Respiratory: Lungs have equal breath sounds bilaterally, clear to auscultation. No rales, rhonchi or wheezes noted. No increased work of breathing, no retractions or nasal flaring. Back: No spinal tenderness. No costovertebral tenderness. Full range of motion. Skin: Warm, dry with normal turgor. Normal color with no rashes, no lesions, and no evidence of cellulitis. MS/ Extremity: Pulses equal, no cyanosis. Neurovascular intact. Full, normal range of motion. Neuro: Awake and alert, GCS 15, oriented to person, place, time, and situation. Cranial nerves II-XII grossly intact. Motor strength 5/5 in all extremities. Sensory grossly intact. Cerebellar exam normal. Normal gait. Vital Signs: 17:12 BP 125 / 81; Pulse 82; Resp 16; Temp 98.4; Pulse Ox 98% ; Weight 57.15 kg; Height 5 ft. ll1 2 in. ; Pain 7/10; 19:06 BP 131 / 91; Pulse 74; Resp 18; Pulse Ox 98% on R/A; kj2 19:50 BP 118 / 88; Pulse 87; Resp 18; Pulse Ox 94% on R/A; kj2 20:45 BP 124 / 86; Pulse 84; Resp 20; Temp 98; Pulse Ox 100% on R/A; kj2 17:12 Body Mass Index 23.04 (57.15 kg, 157.48 cm) ll1 17:12 Pain Scale: Adult ll1 MDM: 17:09 Medical Screening Exam initiated dr5 21:12 Differential diagnosis: viral Infection, bacterial infection, URI, Thyroid cancer, dr5 dental abscess, NAIL PULLER, RPA. Data reviewed: vital signs, nurses notes, lab test result(s), CBC, white blood cell count, hemoglobin, hematocrit, platelets, electrolytes, sodium, potassium, chloride, serum bicarbonate, BUN, creatinine, serum glucose, negative, radiologic studies, CT scan. Consideration of Admission/Observation Escalation of care including admission/observation considered. Escalation considered patient found to have abscess or airway compromise. I considered the following discharge prescriptions or medication management in the emergency department I discussed and recommended Over The Counter medications, Medications were administered in the Emergency Department. See MAR. Independent interpretation of the following test(s) in the Emergency Department CT Scan: My interpretation is Independent interpretation of CT scan shows nodules and enlarged thyroid. External Records Reviewed:. Care significantly affected by the following Social Determinants of Health: Poor access to healthcare and/or lack of insurance, Poor access to transportation, Problems related to employment. Counseling: I had a detailed discussion with the patient and/or guardian regarding the historical points, exam findings, and any diagnostic results supporting the discharge/admit diagnosis, the presence of at least one elevated blood pressure reading (>120/80) during this emergency department visit, lab results, radiology results, the need for outpatient follow up, for definitive care, a family practitioner, to return to the emergency department if symptoms worsen or persist or if there are any questions or concerns that arise at home. Medication response: Response to treatment: the patient's symptoms have markedly improved after treatment. Special discussion: I discussed with the patient/guardian in detail that at this point there is no indication for admission to the hospital. It is understood, however, that if the symptoms persist or worsen the patient needs to return immediately for re-evaluation. Based on the history and exam findings, there is no indication for further emergent testing or inpatient evaluation. I discussed with the patient/guardian the need to see the primary care provider for further evaluation of the symptoms. ED course: Patient states that she already has thyroid ultrasound scheduled for March 23. All labs and CT scan were printed and given to patient take with her. Patient states that she will call Dr. Mendez with her results. CT scan shows similar etiology from June of this year. Recommended patient follow-up this week for further management. All question answered. Strict ER precautions given. Patient vital signs stable for discharge.. 02/24 17:15 Order name: CBC with Diff; Complete Time: 18:55 dr5 02/24 17:15 Order name: CMP; Complete Time: 18:58 dr5 02/24 17:15 Order name: Test, Serum; Complete Time: 18:58 dr5 02/24 17:15 Order name: CT Soft Tissue Neck W/contr; Complete Time: 20:01 dr5 Administered Medications: 19:03 Drug: Dexamethasone IVP 10 mg IVP once; (not to exceed 40 mg) Route: IVP; Site: left kj2 hand; 20:39 Follow up: Response: No adverse reaction kj2 19:04 Drug: diphenhydrAMINE IVP 25 mg IVP once Route: IVP; Site: left hand; kj2 20:38 Follow up: Response: No adverse reaction kj2 20:37 Drug: morphine IVP or IV 4 mg IVP once over 4 mins Route: IVP; Infused Over: 4 mins; kj2 Site: left hand; 20:39 Follow up: Response: No adverse reaction; Medication administered at discharge. kj2 20:38 Drug: Ondansetron IVP 4 mg IVP once; over 2 minutes Route: IVP; Site: left hand; kj2 20:39 Follow up: Response: Medication administered at discharge. kj2 Disposition Summary: 02/24/25 20:34 Discharge Ordered Notes: Location: Home dr5 Condition: Stable dr5 Diagnosis - Nontoxic multinodular goiter dr5 Followup: dr5 - With: Emergency Department - When: As needed - Reason: Worsening of condition Followup: dr5 - With: Private Physician - When: 1 - 2 days - Reason: Recheck today's complaints, Continuance of care, Re-evaluation by your physician Discharge Instructions: - Discharge Summary Sheet dr5 - Thyroid Nodule dr5 Forms: - Medication Reconciliation Form dr5 - Patient Portal Instructions dr5 - Leadership Thank You Letter dr5 Signatures: Dispatcher [employer] EDJose Miguel Marvin, RN RN ll1 Daisy Armstrong RN RN kj2 Parker Collier, BOTTLER-C BOTTLER-Cdr5 Corrections: (The following items were deleted from the chart) 17:16 17:16 Soft Tissue Neck W/Contr+CT.RAD.BRZ ordered. EDMS EDMS 17:19 17:17 Differential diagnosis: dr5 dr5
--- NOTE | 2025-02-24 20:35 | ER ---
Nurse's Notes [facility] Name: Ariana Delatorre Age: 49 yrs Sex: Female : 1975 Arrival Date: 02/24/2025 Time: 17:02 Bed 20 Private MD: Diagnosis: Nontoxic multinodular goiter Presentation: 02/24 17:12 Chief complaint: Patient states: Swelling to R side of neck and pain radiates into R ll1 ear for 1 week. Last visit here for swelling to L side. States this has happened off/on for 2 years. Coronavirus screen: Client denies travel out of the [place] in the last 14 days. At this time, the client does not indicate any symptoms associated with coronavirus-19. Ebola Screen: Patient denies travel to an Ebola-affected area in the 21 days before illness onset. Initial Sepsis Screen: Does the patient meet any 2 criteria? No. Patient's initial sepsis screen is negative. Does the patient have a suspected source of infection? No. Patient's initial sepsis screen is negative. Risk Assessment: Do you want to hurt yourself or someone else? Patient reports no desire to harm self or others. Onset of symptoms was February 17, 2025. 17:12 Method Of Arrival: Ambulatory ll1 17:12 Acuity: DEA 3 ll1 17:12 Acuity: DEA 3 ll1 Triage Assessment: 17:14 General: Appears uncomfortable, Behavior is calm, cooperative, appropriate for age. ll1 Pain: Complains of pain in R neck/throat area Quality of pain is described as aching. EENT: Reports pain in right ear when swallowing R throat area pain, swelling.. Neuro: No deficits noted. Cardiovascular: No deficits noted. Respiratory: No deficits noted. 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 - Infectious Disease History:: Denies. - Social history:: Smoking status: Patient/guardian denies using tobacco. Screenin:00 [facility] ED Fall Risk Assessment (Adult) History of falling in the last 3 months, kj2 including since admission No falls in past 3 months (0 pts) Confusion or Disorientation No (0 pts) Intoxicated or Sedated No (0 pts) Impaired Gait No (0 pts) Mobility Assist Device Used No (0 pt) Altered Elimination No (0 pt) Score/Fall Risk Level 0 - 2 = Low Risk Maintained a safe environment, Hourly rounding (assess needs \T\ fall precautionary measures) done. Abuse screen: Denies threats or abuse. Denies injuries from another. Nutritional screening: No deficits noted. Tuberculosis screening: No symptoms or risk factors identified. Assessment: 18:50 General: Appears in no apparent distress. Behavior is cooperative. Pain: Complains of kj2 pain in right ear Pain currently is 5 out of 10 on a pain scale. Neuro: Level of Consciousness is awake, alert, obeys commands, Oriented to person, place, time, situation. Cardiovascular: Patient's skin is warm and dry. Respiratory: Airway is patent Respiratory effort is unlabored. GI: No signs and/or symptoms were reported involving the gastrointestinal system. : No signs and/or symptoms were reported regarding the genitourinary system. 19:50 Reassessment: Patient appears in no apparent distress at this time. Patient and/or kj2 family updated on plan of care and expected duration. Pain level reassessed. Patient is alert, oriented x 3, equal unlabored respirations, skin warm/dry/pink. 20:45 Reassessment: Patient appears in no apparent distress at this time. Patient is alert, kj2 oriented x 3, equal unlabored respirations, skin warm/dry/pink. Vital Signs: 17:12 BP 125 / 81; Pulse 82; Resp 16; Temp 98.4; Pulse Ox 98% ; Weight 57.15 kg; Height 5 ft. ll1 2 in. ; Pain 7/10; 19:06 BP 131 / 91; Pulse 74; Resp 18; Pulse Ox 98% on R/A; kj2 19:50 BP 118 / 88; Pulse 87; Resp 18; Pulse Ox 94% on R/A; kj2 20:45 BP 124 / 86; Pulse 84; Resp 20; Temp 98; Pulse Ox 100% on R/A; kj2 17:12 Body Mass Index 23.04 (57.15 kg, 157.48 cm) ll1 17:12 Pain Scale: Adult ll1 ED Course: 17:03 Patient arrived in ED. mr 17:09 Parker Collier, FRONT DESK AUXILIARY-C [facility] dr5 17:09 Germain Tate MD is Attending Physician. dr5 17:14 Triage completed. ll1 17:14 Arm band placed on. ll1 17:19 Radiology exam delayed due to lab results not completed at this time. (BUN/Creatinine) ls3 IV insertion attempt and/or patient not having appropriate IV at this time. 18:29 Initial lab(s) drawn, by finishing lab technician, sent to lab. Inserted saline lock: 24 gauge in left ts3 wrist, using aseptic technique. Blood collected. Flushed with 10 mL NS. 18:51 Daisy Armstrong, RN is Primary Nurse. kj2 19:00 Patient has correct armband on for positive identification. Bed in low position. Call kj2 light in reach. Provided Education on: call light. 19:20 CT Soft Tissue Neck W/contr In Process Unspecified. EDMS 21:00 No provider procedures requiring assistance completed. IV discontinued, intact, kj2 bleeding controlled, No redness/swelling at site. Pressure dressing applied. Administered Medications: 19:03 Drug: Dexamethasone IVP 10 mg IVP once; (not to exceed 40 mg) Route: IVP; Site: left kj2 hand; 20:39 Follow up: Response: No adverse reaction kj2 19:04 Drug: diphenhydrAMINE IVP 25 mg IVP once Route: IVP; Site: left hand; kj2 20:38 Follow up: Response: No adverse reaction kj2 20:37 Drug: morphine IVP or IV 4 mg IVP once over 4 mins Route: IVP; Infused Over: 4 mins; kj2 Site: left hand; 20:39 Follow up: Response: No adverse reaction; Medication administered at discharge. kj2 20:38 Drug: Ondansetron IVP 4 mg IVP once; over 2 minutes Route: IVP; Site: left hand; kj2 20:39 Follow up: Response: Medication administered at discharge. kj2 Medication: 21:00 VIS not applicable for this client. kj2 Outcome: 20:34 Discharge ordered by . dr5 21:00 Discharged to home ambulatory, kj2 21:00 Condition: stable 21:00 Discharge instructions given to patient, Instructed on discharge instructions, follow up and referral plans. Demonstrated understanding of instructions, follow-up care, 21:03 Patient left the ED. kj2 Signatures: Dispatcher [employer] EDMS Edgar Beba, Jermaine Dean mr Justyna Montejomik ls3 Jose Miguel Wheeler RN RN ll1 Daisy Armstrong, RN RN kj2 Parker Collier, FRONT DESK AUXILIARY-C FRONT DESK AUXILIARY-Cdr5 Gloria Galarza ts3 Corrections: (The following items were deleted from the chart) 17:16 17:12 Resp 16bpm; 57.15 kg; Height 5 ft. 2 in.; BMI: 23.0; Pain 7/10, Adult; ll1 ll1 20:38 20:37 Ondansetron IVP 4 mg IVP in right antecubital kj2 kj2
[2025-02-24 21:20] VITALS: BP 124/86; TEMP 98; O2SAT 100
== END 2025-02-24 21:03 | disposition home or self-care (01) ==
LOC: ER 17:02
DX: E04.2 Nontoxic multinodular goiter (principal)
CPT/HCPCS: 85025; 36415; 84703; 80053; 70491; 96375; 96374; 99284; Q9967; J1200; J1100; J2405

== ENCOUNTER 2025-03-01 17:06 | Emergency (ER) | payer OTHER ==
--- OUTSIDE RECORDS SUMMARY | 2025-03-01 17:16 | XMS REPORT | Continuity of Care Document ---
Author Name Unknown Address [address] [facility] [address] [place] [address] [facility] Address [address] [facility]. 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 Wood Name Role Phone AKIL MENDEZ Primary Care Physician Unavailab AKIL Marquez Attending Clinician Unavailable MARY GOODMAN Attending Clinician Unavailable ANA LUISA DINH Attending Clinician Unavailable GUSTABO SOLIZ Attending Clinician Unavailable [id number] Attending Clinician Unavailable MD JASON Attending Clinician Unavailab WYATT Hardwick Attending Clinician Unavail able MONAE HOYOS Attending Clinician Unav ailable JAMMIE GAO Attending Clinician Unavailable SERJIO ANDINO Attending Clinician Unavailable SERJIO ANDINO Attending Clinician Unavailable KAYLAH CLARKE Attending Clinician Unavailable BEBE PACHECO Attending Clinician Unavailable Doctor Unassigned, [place] Attending Clinician U roeailable RADHA FERNANDEZ Attending Clinician Unavailab YULY Ramires Attending Clinician Unav ailable YULY SAUCEDO Attending Clinician Unav ailable TYREE NAIDU Attending Clinician Unavailabl KVNG Locke Attending Clinician Unav ailable JR, JAQUI Attending Clinician Unavailable Jr INS[employer]OR [employer]ATING [employer] REFRIGERATION, Jaqui Attending Clinician [phone] Suma Rosario Attending Clinician Unavailab Saulo Reyes Attending Clinician Unavaila ble LAB90 Attending Clinician Unavailable Levon Hurley Attending Clinician Unavailable Yuly Saucedo MD Attending Clinician + Paresh Lyman Attending Clinician [phone] DANDRE JOHANSEN Attending Clinician Unavailable RADIOLOGY Attending Clinician Unavailable SAULO MONTENEGRO Attending Clinician UnavailPARESH Gutierrez Attending Clinician Unavailable Sherri Hall RN Attending Clinician Unavailable Lab, Ang - Db Attending Clinician Unavailable ANA CRISTINA RAYMOND Attending Clinician Unavailable Ana Cristina Hoang Attending Clinician [phone] Pcp, Patient Does Not Have A Attending Clinician JONA GRANADOS Attending Clinician Unavailable JONA GRANADOS Attending Clinician Unavailable Jona Miller Attending Clinician [phone] David Swanson Attending Clinician [phone] CAREN JOHNSTON Attending Clinician Unavailable CAREN JOHNSTON Attending Clinician Unavailable Caren Mulligan Attending Clinician [phone] ALIN WYATT Attending Clinician Unavailable Beba Crespo RN Attending Clinician [phone] Doctor Unassigned, [place] Attending Clinician U navailable RICH MONTILLA Attending Clinician Unavailable RICH MONTILLA Attending Clinician Unavailable LEE JETT Attending Clinician Unavailable Yesenia Ogden Attending Clinician [phone] YESENIA KENDRICK Attending Clinician Unavailable _BCSS_Mukund_Dan1 Attending Clinician Unavaila efrain Joy Attending Clinician Unavailable DR JOSE L REYNOLDS Attending Clinician Unava ilYULY Lu Admitting Clinician Unav ailable JAQUI NORRIS Admitting [...] on Date Source GOLD 3 ADVANCED 9 [id number] 2024 00:00:00 [employer] W/ ISABEL SEWELL OON [id number] 2024 00:00:00 [facility] FOCUS 9 [id number] 2023 00:00:00 [facility] [place] [facility] [id number] [id number] 4096-07-19 [facility] [id number] Problems Condition Name Condition Details Condition Category [...] Medical Other emphysema Other emphysema Disease Active 3-31 00:00: 00 Isabel Seybold [...] pain Disease Active 2023-06 2-02 00:00: 00 [facility] Mastodynia of bilateral breasts Mastodynia of Bilateral Breasts Problem Active 2023-06 1- 00:00: 00 [facility] Menorrhagi a with regular cycle Menorrhagi a with regular cycle Disease Active 2023-06 00:00: 00 [facility] Preoperati ve clearance Preoperati ve clearance Disease Active 2023-06 00:00: 00 [facility] Smoker Smoker Disease Active 2023-06 00:00: 00 [facility] Hemorrhagi c cystitis Hemorrhagi c cystitis Disease Active 2023-06 00:00: 00 [facility] Radiology result abnormal Radiology Result Abnormal [...] on Cervical Papanicola ou Smear Problem Active 8-29 00:00: 00 [facility] Human papillomav irus deoxyribon ucleic acid detected, high risk on cervical specimen Human Papillomav irus Deoxyribon ucleic Acid Detected, High Risk on Cervical Specimen Problem Active 8-29 00:00: 00 [facility] Cigarette smoker Cigarette Smoker Problem Active 8-19 00:00: 00 [facility] Pelvic and perineal pain Pelvic and Perineal Pain Problem Active 8-19 00:00: 00 [facility] Cyst of ovary Cyst of Ovary Problem Active 8-19 00:00: 00 [facility] Abnormal uterine bleeding Abnormal Uterine Bleeding Problem Active 8-19 00:00: 00 [facility] Heartburn Heartburn Problem Active 0 8-19 00:00: 00 [facility] Abdominal bloating Abdominal Bloating Problem Active 0 8-19 00:00: 00 [facility] Left lower quadrant pain Left Lower Quadrant Pain Problem Active 8-19 00:00: 00 [facility] Right ovarian cyst Right ovarian cyst Disease Active 1-25 00:00: 00 [facility] Fibroids Fibroids Disease Active Kelse y Seybold - Externa l History of kidney stones History of kidney stones Disease Active Isabel Seybold - Externa l Insomnia Insomnia Disease Active Kelse y Seybold - Externa l Hepatic steatosis Hepatic steatosis Disease Active Isabel Seybold - Externa l Tobacco abuse Tobacco abuse Disease Active - 00:00: 00 2024-10-13 00:00:00 2024-10-13 10:59:57 Isabel Seybold - Externa l Left lower lobe pulmonary nodule Left lower lobe pulmonary nodule Disease Resolve d 2024-09-01 00:00:00 2024-09-01 11:19:46 Isabel Sewell - Externa l Allergies, Adverse Reactions, Alerts Allergy Name Allergy Type Status Severity Reaction(s) Onset Date Inactive Date Treating Clinician Comments Source No Known Allergie s DA Active U 16 00:00: 00 T[facility] NO KNOWN ALLERGIE S Drug Class Active [facility] Social History Social Habit Start Date Stop Date Quantity Comments Source ASSERTION Possible [facility] Sexual orientation Grant gallardo Melodie - External Gender identity Adriane Sewell - External History of tobacco use Cigarette Smoker Isabel Tomlinson sandra - External Alcoholic beverage intake 2025-02-24 00:00:00 2025-02-24 00:00:00 [...] 2022-12-20 00:00:00 Current drinker of alcohol (finding) [facility] Sex assigned at 1975 00:00:00 1975 00:00:00 Isabel Sewell - External Smoking Status Start Date Stop Date Source Ex-smoker 2024-10-13 00:00:00 2024-10-13 00:00:00 Isabel Sekarishma - External Occasional tobacco smoker 2024-10-03 00:00:00 Isabel Sediogenessandra Escobar External Smokes tobacco daily 2024-04-28 00:00:00 [facility] Medications Ordered Medication Name Filled Medication Name Start Date Stop Date Current Medication? Ordering Clinician Indication Dosage Frequency Signature (SIG) Comments Components Source Pantoprazol e Sodium 40 MG oral Tablet Delayed Response Pantoprazol e Sodium 40 MG oral Tablet Delayed Response 02-24 00:00: 00 Yes [id number] 40mg QD Take 1 tablet (40 mg total) by mouth daily. Isabel duron Quetiapine Fumarate 50 MG oral Tablet Quetiapine Fumarate 50 MG oral Tablet 02-19 00:00: 00 Yes [id number] 50mg QD Take 1 tablet (50 mg [...] MCG/ACT IN AERS 01-15 00:00: 00 Yes [id number] 2{puff} Q.25D Inhale 2 puffs into the lungs every 6 hours as needed for wheezing or shortness of breath. Isabel duron FLUTICASONE PROPIONATE, NASAL, 50 MCG/ACT nasal Suspension FLUTICASONE PROPIONATE, NASAL, 50 MCG/ACT nasal Suspension 01-15 00:00: 00 Yes [id number] 50ug Q.5D Use 1 spray (50 mcg total) in each nostril 2 times daily. Isabel duron Fluticasone -Salmeterol (Advair Diskus) 100-50 MCG/ACT inhalation AEROSOL POWDER, BREATH ACTIVATED Fluticasone -Salmeterol (Advair Diskus) 100-50 MCG/ACT inhalation AEROSOL POWDER, BREATH ACTIVATED 01-15 00:00: 00 Yes [id number] 1{puff} Q.5D Inhale 1 puff into the lungs 2 times daily. Isabel duron Cyclobenzap rine HCl 5 MG oral Tablet Cyclobenzap rine HCl 5 MG oral Tablet 01-15 00:00: 00 02-24 00:00 :00 No [id number] 5mg QD Take 1 tablet (5 mg total) by mouth nightly as needed for muscle spasms. Isabel duron Amoxicillin -Pot Clavulanate 875-125 MG oral Tablet Amoxicillin -Pot Clavulanate 875-125 MG oral Tablet 01-15 00:00: 00 02-24 00:00 :00 No [id number] 1{tbl} Q.5D Take 1 tablet by mouth 2 times daily. Isabel duron Ibuprofen (MOTRIN) 800 MG oral Tablet Ibuprofen (MOTRIN) 800 MG oral Tablet 01-09 00:00: 00 01-15 00:00 :00 No Isabel duron dexamethaso ne sod phos PF injection 8 mg 01-04 16:45: 00 01-04 17:19 :00 No 8mg 8 mg, Intramuscu lar, ONCE, 1 dose, On 01/04/25 at 1145, 1 mL [facility] methylPREDN ISolone 4 mg tablets 01-04 00:00: 00 Yes [id number] Take by mouth SEE-INSTRU CTIONS. follow package directions [facility] cephALEXin 500 mg capsule 01-04 00:00: 00 Yes [id number] 500mg Take 1 capsule by mouth in the morning and 1 capsule at noon and 1 capsule in the evening. [facility] Loratadine (CLARITIN) 10 MG oral tablet Loratadine (CLARITIN) 10 MG oral tablet 01-04 00:00: 00 Yes 10mg QD Take 1 tablet (10 mg total) by mouth daily. Isabel duron HYDROcodone -acetaminop hen 5-325 mg tablet 01-04 00:00: 00 01-12 04:59 :00 Yes [id number] 1{tbl} Take 1-2 tablets by mouth every 6 hours as needed for Pain (scale 4-6) for up to 7 days. [facility] Nicotine 21 MG/24HR transdermal PATCH 24 [...] MG oral Capsule 12-22 00:00: 00 Yes [id number] 15mg QD Take 1 capsule (15 mg [...] MG oral Capsule 12-18 00:00: 00 Yes [id number] 400mg [id number] 3D Take 1 capsule (400 mg total) by mouth 3 times daily. Isabel duron Celecoxib (CeleBREX) 100 MG oral Capsule Celecoxib (CeleBREX) 100 MG oral Capsule 12-18 00:00: 00 01-15 00:00 :00 No [id number] 100mg Q.5D Take 1 capsule (100 [...] MG oral Tablet 11-24 00:00: 00 Yes [id number] 50mg QD TAKE 1 TABLET BY MOUTH ONCE NIGHTLY Isabel duron Ondansetron (ZOFRAN) 8 MG oral TABLET DISPERSIBLE -16 00:00: 00 12-22 00:00 :00 No Isabel duron maalox/diph enhydrAMINE :lidocaine2 %viscous 1:1:1: suspension (COMPOUNDED ) 10-24 05:00: 00 10-24 05:05 :00 No 15mL 15 mL, Oral, ONCE, 1 dose, On Sun10/24/24 at 0000, Routine [facility] cefTRIAXone (ROCEPHIN) 1,000 mg in sterile water for injection 10 mL IV Push 10-24 04:00: 00 10-24 04:12 :00 No 1000mg 1,000 mg, Intravenou s, ONCE, 1 dose, On Breanna 10/23/24 at 2300, 10 mL, Reason for Anti-Infec tive: Documented Infection, Documented Infection Site: Urine, Duration of therapy: Once (ED) [facility] ondansetron (ZOFRAN (PF)) injection 4 mg 10-24 04:00: 00 10-24 04:14 :00 No 4mg 4 mg, Slow IV Push, ONCE, 1 dose, On Sun10/23/24 at 2300, Administer over 2-5 Minutes, 2 mL [facility] morpHINE (4 mg/mL) injection 4 mg 10-24 04:00: 00 10-24 04:12 :00 No 4mg 4 mg, Slow IV Push, ONCE, 1 dose, On Breanna 10/23/24 at 2300, STAT [facility] iopamidol (ISOVUE 370-500 mL) injection 83 mL 10-24 02:20: 00 10-24 02:30 :00 No [id number] 83mL 83 mL, Intravenou s, ONCE, 1 dose, On Breanna 10/23/24 at 2130, Routine [facility] cefdinir 300 mg capsule 10-23 00:00: 00 11-03 04:59 :00 No [id number] 300mg Take 1 capsule by mouth in the morning and 1 capsule in the evening. Do all this for 10 days. [facility] Temazepam 15 MG oral Capsule 10-20 13:21: 28 Yes 15mg QD Take 1 capsule (15 mg total) by mouth nightly as needed for sleep. Isabel duron Nicotine 21 MG/24HR transdermal PATCH 24 HR 10-20 13:21: 28 Yes 1{patch } Place 1 patch onto the skin in the morning. Isabel Gould l Diclofenac Sodium 75 MG oral Tablet Delayed Response 10-20 00:00: 00 12-18 00:00 :00 No [id number] 75mg Q.5D Take 1 tablet (75 mg total) by mouth 2 times daily. Isabel Gould l Gabapentin 100 MG oral Capsule 10-20 00:00: 00 12-10 00:00 :00 No [id number] 9103 TAKE 1 CAPSULE BY MOUTH 2 TIMES A DAY NEEDED FOR PAIN Isabel duron Capsaicin 0.1 % apply externally Cream 10-20 00:00: 00 12-10 00:00 :00 No [id number] 1{appli cation} Q.[id number] 3D Apply 1 Applicatio n topically 3 times daily. Isabel duron Nicotine 21 MG/24HR transdermal PATCH 24 HR 10-13 11:01: 55 Yes 1{patch } Place 1 patch onto the skin in the morning. Isabel Gould l Temazepam 15 MG oral Capsule 10-13 10:28: 56 Yes 15mg QD Take 1 capsule (15 mg total) by mouth nightly as needed for sleep. Isabel Hernandeza l Lyllana 0.1 MG/24HR transdermal PATCH BIWEEKLY Lyllana [...] Albuterol HFA 108 (90 Base) MCG/ACT IN AER Albuterol HFA 108 (90 Base) MCG/ACT IN BANNER 10-03 00:00: 00 01-15 00:00 :00 No [id number] 2{puff} Q.25D Inhale 2 puffs into the lungs every 6 hours as needed for wheezing or shortness of breath. Isabel duron Albuterol HFA 108 (90 Base) MCG/ACT IN BANNER 09-29 09:45: 44 09-29 00:00 :00 No 2{puff} Q.25D Inhale 2 puffs into the lungs every 6 hours as needed for wheezing or shortness of breath. Isabel duron Meloxicam (Mobic) 15 MG oral Tablet 09-29 00:00: 00 12-10 00:00 :00 No [id number] 15mg QD Take 1 tablet (15 mg total) by mouth daily Take with Meals, STOP IF UPSET STOMACH. Isabel duron methylPREDN ISolone (Medrol) 4 MG oral Tablet Therapy Pack 09-29 00:00: 00 10-06 04:59 :00 No [id number] 1{calista} Take 1 calista by mouth See Admin Instructio ns for 6 days Use as directed.. Isabel duron HYDROcodone -acetaminop hen (NORCO 5) tablet 1 tablet 09-06 15:00: 00 09-06 14:58 :00 No 1{tbl} 1 tablet, Oral, ONCE, 1 dose, On 09/06/24 at 1000, SY[facility] [facility] ibuprofen 800 mg tablet 4-05 00:00: 00 Yes [id number] 800mg Take 1 tablet by mouth every 6 (six) hours as needed for Pain (scale 4-6). [facility] Albuterol HFA 108 (90 Base) MCG/ACT IN AERS 09-01 11:19: 15 Yes 2{puff} Q.25D Inhale 2 puffs into the lungs every 6 hours as needed for wheezing or shortness of breath. Isabel duron Quetiapine Fumarate 50 MG oral Tablet 09-01 00:00: 00 Yes [id number] 50mg QD Take 1 tablet (50 mg total) by mouth nightly. Isabel duron Meloxicam (Mobic) 15 MG oral Tablet 08-18 00:00: 00 Yes [id number] 15mg QD Take 1 tablet (15 mg total) by mouth daily Take with Meals, STOP IF UPSET STOMACH. Isabel duron Trazodone HCl 100 MG oral Tablet 3- 00:00: 00 09-01 00:00 :00 No [id number] 100mg QD Take 1 tablet (100 mg total) by mouth nightly as needed for sleep. Isabel duron Gabapentin 100 MG oral Capsule 07-21 00:00: 00 Yes [id number] 100mg Q.5D Take 1 capsule (100 mg total) by mouth 2 times daily as needed (pain). Isabel duron Naproxen 500 MG oral Tablet 07-21 00:00: 00 09-01 00:00 :00 No 500mg Q.5D Take 1 tablet (500 mg total) by mouth 2 times daily as needed (pain). Isabel duron piperacilli n-tazobacta m (ZOSYN) 3.375 g in NaCl 0.9% (NS) 100 mL MINI-BAG 1- 23:45: 00 06-30 00:38 :00 No 3.375g 3.375 g, IV Piggyback, ONCE, 1 dose, On 06/29/24 at 1745, Administer over 30 Minutes, 100 mL, Reason for Anti-Infec tive: Documented Infection, Documented Infection Site: Abdominal, Duration of Therapy: Once (ED) [facility] morpHINE (4 mg/mL) injection 4 mg 06-29 23:00: 00 06-29 23:10 :00 No 4mg 4 mg, Slow IV Push, ONCE, 1 dose, On Sun06/29/24 at 1700, STAT [facility] iopamidol (ISOVUE 370-500 mL) injection 85 mL 06-29 22:45: 00 06-29 22:45 :00 No [id number] 85mL 85 mL, Intravenou s, ONCE, 1 dose, On Sun06/29/24 at 1645, Routine [facility] ondansetron (ZOFRAN (PF)) injection 4 mg 06-29 20:30: 00 06-29 20:50 :00 No 4mg 4 mg, Slow IV Push, ONCE, 1 dose, On Sun06/29/24 at 1430, Administer over 2-5 Minutes, 2 mL [facility] morpHINE (4 mg/mL) injection 4 mg 06-29 20:30: 00 06-29 20:48 :00 No 4mg 4 mg, Slow IV Push, ONCE, 1 dose, On Sun06/29/24 at 1430, STAT [facility] Quetiapine Fumarate 25 MG oral Tablet 16 00:00: 00 09-01 00:00 :00 No 25mg Take 1 tablet (25 mg total) by mouth. Isabel duron Trazodone HCl 50 MG oral Tablet 06-16 00:00: 00 Yes [id number] 50mg QD Take 1 tablet (50 mg total) by mouth nightly as needed for sleep. Isabel duron Celecoxib (CeleBREX) 200 MG oral Capsule 06-16 00:00: 07-21 00:00 :00 No [id number] 200mg Q.5D Take 1 capsule (200 mg total) by mouth 2 times daily as needed for pain. Isabel Muñozdiogenessandra Luz Hernandezgenevieve domi cephALEXin 500 mg capsule 2023-06 00:00: 00 01-04 00:00 :00 No [id number] 500mg Take 1 capsule by mouth in the morning and 1 capsule in the evening. [facility] sulfamethox azole-trime thoprim (BACTRIM DS) 800-160 mg per tablet 2023-06 00:00: 00 04-30 00:00 :00 No [id number] 1{tbl} Take 1 tablet by mouth in the morning and 1 tablet in the evening. Do all this for 7 days. [facility] gabapentin 300 mg capsule 2023-06 00:00: 00 Yes 300mg Take 1 capsule by mouth in the morning and 1 capsule at noon and 1 capsule in the evening. [facility] ondansetron (ZOFRAN-ODT ) disintegrat ing tablet 4 mg 2023-06 23:30: 00 04-02 23:19 :00 No 4mg 4 mg, Oral, ONCE, 1 dose, On Sun04/02/24 at 1830, Routine [facility] ketorolac (TORADOL) injection 15 mg 2023-06 23:30: 00 04-02 23:19 :00 No 15mg 15 mg, Intramuscu lar, ONCE, 1 dose, On Sun04/02/24 at 1830, Routine [facility] ondansetron 4 mg disintegrat ing tablet 2023-06 00:00: 00 Yes [id number] 4mg Take 1 tablet by mouth every 8 (eight) hours as needed for Nausea and Vomiting (N/V). [facility] QUEtiapine 25 mg tablet 2023-06 00:00: 00 Yes [facility] HYDROcodone -acetaminop hen (NORCO 5) tablet 1 tablet 2023-06 03:30: 00 03-26 03:34 :00 No 1{tbl} 1 tablet, Oral, ONCE, 1 dose, On Sun03/25/24 at 2230, [place] [facility] iopamidol (ISOVUE 370-500 mL) injection 83 mL 2023-06 02:15: 00 03-26 02:15 :00 No [id number] 83mL 83 mL, Intravenou s, ONCE, 1 dose, On Sun03/25/24 at 2115, Routine [facility] ketorolac (TORADOL) injection 15 mg 2023-06 01:30: 00 03-26 00:50 :00 No 15mg 15 mg, Slow IV Push, ONCE, 1 dose, On Sun03/25/24 at 2030, Routine [facility] traMADoL (ULTRAM) tablet 50 mg 2023-06 01:00: 00 03-26 00:42 :00 No 50mg 50 mg, Oral, ONCE NOW, 1 dose, On Sun03/25/24 at 2000, [facility] traMADoL 50 mg tablet 2023-06 00:00: 00 04-02 04:59 :00 No [id number] 50mg Take 1 tablet by mouth every 8 (eight) hours as needed for Pain (scale 7-10) for up to 7 days. Indication s: acute pain [facility] diazePAM 10 mg tablet 2023-0616 00:00: 00 Yes Take by mouth. [facility] ketorolac (TORADOL) injection 30 mg 01-18 03:00: 00 01-18 03:09 :00 No 30mg 30 mg, Slow IV Push, ONCE, 1 dose, On Sun01/18/24 at 2200[facility] 370-500 mL) injection 60 mL 01-18 02:45: 00 01-18 02:45 :00 No [id number] 60mL 60 mL, Intravenou s, ONCE, 1 dose, On Sun01/18/24 at 2145, Routine [facility] NaCl 0.9% (NS) IV infusion 1,000 mL 01-18 00:30: 00 01-18 03:16 :00 No 1000mL at 999 mL/hr, Intravenou s, ONCE, 1 dose, On Sun01/18/24 at 1930, [facility] ondansetron (ZOFRAN (PF)) injection 4 mg 01-17 23:30: 00 01-18 02:34 :00 No 4mg 4 mg, Slow IV Push, ONCE, 1 dose, On Sun01/18/24 at 1830, [facility] fentanyl PF (SUBLIMAZE (PF)) injection 50 mcg 01-17 23:20: 00 01-18 02:34 :00 No 50ug 50 mcg, Slow IV Push, ONCE, 1 dose, On Sun01/18/24 at 1830, [facility] sodium chloride (NS) injection 5 mL 01-17 22:28: 58 Yes 5mL 5 mL, Intravenou s, PRN, Starting on Sun01/18/24 at 1728, Until Discontinu ed, Routine, IV line flushing [facility] naproxen (NAPROSYN) 500 mg tablet 01-17 00:00: 00 Yes [id number] 500mg Take 1 tablet by mouth 2 (two) times daily with meals as needed for Alternate with [place] for pain scale 1-3. [facility] traMADoL 50 mg tablet 01-17 00:00: 00 01-25 04:59 :00 No [id number] 50mg Take 1 tablet by mouth every 8 (eight) hours as needed for Pain (scale 7-10) for up to 7 days. Indication s: acute pain [facility] ketorolac (TORADOL) injection 15 mg 12-17 17:00: 00 12-17 16:21 :00 No 15mg 15 mg, Slow IV Push, ONCE, 1 dose, On Sun12/18/23 at 1200, [facility] naproxen 500 mg tablet 12-17 00:00: 00 12-28 04:59 :00 No [id number] 500mg Take 1 tablet by mouth in the morning and 1 tablet in the evening. Take with meals. Do all this for 10 days. [facility] HYDROcodone -acetaminop hen 5-325 mg tablet 7-16 00:00: 00 12-25 04:59 :00 No [id number] 1{tbl} Take 1-2 tablets by mouth every 6 (six) hours as needed for Pain (scale 4-6) for up to 7 days. Indication s: acute pain [facility] acetaminoph en (TYLENOL) tablet 650 mg 09-28 03:45: 00 09-28 03:39 :00 No 650mg 650 mg, Oral, ONCE, 1 dose, On Sun09/28/23 at 2245, [facility] ibuprofen (IBU) tablet 600 mg 09-28 01:30: 00 09-28 01:31 :00 No 600mg 600 mg, Oral, ONCE, 1 dose, On Sun09/28/23 at 2030, [facility] ondansetron (ZOFRAN (PF)) injection 4 mg 08-03 02:15: 00 08-03 06:15 :00 No 4mg 4 mg, Slow IV Push, ONCE, 1 dose, On Sun08/03/23 at 2015, [facility] famotidine (PEPCID (PF)) injection 20 mg 08-03 02:15: 00 08-03 06:14 :00 No 20mg 20 mg, Slow IV Push, ONCE, 1 dose, On Sun08/03/23 at 2015, [facility] acetaminoph en (TYLENOL) tablet 1,000 mg 08-03 02:15: 00 08-03 06:13 :00 No 1000mg 1,000 mg, Oral, ONCE, 1 dose, On Sun08/03/23 at 2015, [facility] maalox:diph enhydrAMINE :lidocaine 2 % viscous 1:1:1 ([facility]) oral suspension 15 mL 08-03 02:15: 00 08-03 06:14 :00 No 15mL 15 mL, Oral, ONCE, 1 dose, On Sun08/03/23 at 2015, Routine [facility] ondansetron 4 mg disintegrat ing tablet 08-03 00:00: 00 Yes [id number] 4mg Take 1 tablet by mouth every 8 (eight) hours as needed for Nausea and Vomiting (N/V). [facility] famotidine (PEPCID) 20 mg tablet 08-03 00:00: 00 09-03 04:59 :00 No [id number] 20mg Take 1 tablet by mouth in the morning and 1 tablet in the evening. Do all this for 30 days. [facility] iopamidol (ISOVUE 370-500 mL) injection 100 mL 06-28 07:45: 00 06-28 07:45 :00 No [id number] 100mL 100 mL, Intravenou s, ONCE, 1 dose, On Breanna 06/28/23 at 0145, Routine [facility] ketorolac (TORADOL) injection 30 mg 06-28 07:00: 00 06-28 06:32 :00 No 30mg 30 mg, Slow IV Push, ONCE, 1 dose, On Breanna 06/28/23 at 0100, [facility] [facility] NaCl 0.9% (NS) bolus infusion 1,000 mL 06-28 07:00: 00 06-28 07:47 :00 No 1000mL at 999 mL/hr, 1,000 mL, IV Infusion, ONCE, 1 dose, On Breanna 06/28/23 at 0100, [place] [facility] ketorolac 10 mg tablet 06-28 00:00: 00 Yes [id number] 10mg Take 1 tablet by mouth every 6 (six) hours as needed for Pain (scale 7-10). [facility] ketorolac (TORADOL) injection 15 mg 06-21 01:45: 00 06-21 01:04 :00 No 15mg 15 mg, Slow IV Push, ONCE, 1 dose, On Sun06/20/23 at 1945, Routine [facility] ibuprofen 800 mg tablet 06-20 00:00: 00 09-06 00:00 :00 No [id number] 800mg Take 1 tablet by mouth every 8 (eight) hours as needed for Pain (scale 1-3). [facility] trazodone HCl (TRAZODONE ORAL) 12-20 22:34: 38 Yes Take by mouth. [facility] Nitrofurant oin&Nit. Macrocryst (MACROBID) 100 mg capsule 12-18 00:00: 00 04-28 00:00 :00 No 100mg Take 1 capsule by mouth in the morning and 1 capsule in the evening. [facility] quetiapine quetiapine No quetiapine [facility] estradiol 0.01% (0.1 mg/gram) vaginal cream Insert 0.5 g 3 times a week by vaginal route for 30 days. estradiol 0.01% (0.1 mg/gram) vaginal cream Insert 0.5 g 3 times a week by vaginal route for 30 days. No .5g Q56H estradiol 0.01% (0.1 mg/gram) vaginal cream Insert 0.5 g 3 times a week by vaginal route for 30 days. [facility] cephalexin 500 mg capsule Take [...] by transderma l route for 90 days. [facility] progesteron e micronized 200 mg capsule Take 1 capsule every day by oral route at bedtime for 90 days. progesteron e micronized 200 mg capsule Take 1 capsule every day by oral route at bedtime for 90 days. No 1capsul e(s) Q1D progestero ne micronized 200 mg capsule Take 1 capsule every day by oral route at bedtime for 90 days. [facility] RABT Immunizations Ordered Immunization Name Filled Immunization Name Date Status Comments Source RSV, Abrysvo RSV, Abrysvo 2024-12-31 00:00:00 Completed Isabel Seybold - External Tdap- (Boostrix, Adacel) Tdap- (Boostrix, Adacel) 2024-11-11 00:00:00 Completed Isabel Seybold - External Shingles IM (Shingrix) Shingles IM (Shingrix) 2024-11-11 00:00:00 Completed Isabel Seybold - External TD, NOS 2015-04-09 00:00:00 Completed [facility] Td(adult) unspecified formulation Td(adult) unspecified formulation 2015-04-09 00:00:00 Completed Isabel Seybold - External TD, NOS Unknown Completed [facility] TD, NOS Unknown Completed [facility] TD, NOS Unknown Completed [facility] TD, NOS Unknown Completed [facility] TD, NOS Unknown Completed [facility] TD, NOS Unknown Completed [facility] TD, NOS Unknown Completed [facility] TD, NOS Unknown Completed [facility] TD, NOS Unknown Completed [facility] Td(adult) unspecified formulation Unknown Completed [...] blood pressure 2025-02-24 09:22:00 112 mm[Hg] Isabel Seybo ld - External Diastolic blood pressure 2025-02-24 09:22:00 66 mm[Hg] Isabel Seybo ld - External Heart rate 2025-02-24 09:22:00 97 /min Tejase wilkes Seybold - External Body temperature 2025-02-24 09:22:00 36.06 Anjelica Isabel Seybold - External Respiratory rate 2025-02-24 09:22:00 16 /min Isabel Seybold - External Body height 2025-02-24 09:22:00 157.5 cm Adriane sarmiento Seybold - External Body weight 2025-02-24 09:22:00 58.514 kg Adriane sarmiento Seybold - External BMI 2025-02-24 09:22:00 23.59 kg/m2 Adriane ey Seybold - External Oxygen saturation in Arterial blood by Pulse oximetry 2025-02-24 09:22:00 100 /min Isabel Tomlinsono ld - External Systolic blood pressure 2025-01-15 08:55:00 118 mm[Hg] Isabel Tomlinsono ld - External Diastolic blood pressure 2025-01-15 08:55:00 82 mm[Hg] Isabel Tomlinsono ld - External Heart rate 2025-01-15 08:55:00 68 /min Norma wilkes Seybold - External Body temperature 2025-01-15 08:55:00 36.67 Anjelica Isabel Muñozybold - External Respiratory rate 2025-01-15 08:55:00 18 /min Isabel Tomlinsonold - External Body height 2025-01-15 08:55:00 157.5 cm Adriane Sewell - External Body weight 2025-01-15 08:55:00 58.287 kg Adriane sarmiento Seybold - External BMI 2025-01-15 08:55:00 23.50 kg/m2 Adriane sarmiento Seybold - External Oxygen saturation in Arterial blood by Pulse oximetry 2025-01-15 08:55:00 99 /min Isabel Quinones ld - External Systolic blood pressure 2025-01-04 17:24:16 130 mm[Hg] [facility] Diastolic blood pressure 2025-01-04 17:24:16 73 mm[Hg] [facility] Heart rate 2025-01-04 17:24:16 65 /min [facility] 2025-01-04 17:24:16 36.67 Anjelica [facility] Respiratory rate 2025-01-04 17:24:16 16 /min [facility] Oxygen saturation in Arterial blood by Pulse oximetry 2025-01-04 17:24:16 99 /min [facility] Body height 2025-01-04 16:17:00 157.5 cm [facility] Body weight 2025-01-04 16:17:00 54.432 kg [facility] BMI 2025-01-04 16:17:00 21.95 kg/m2 [facility] Systolic blood pressure 2024-12-23 18:48:00 119 [...] Pulse oximetry 2024-12-10 19:25:00 98 /min Isabel ybo ld - External Systolic blood pressure 2024-10-24 05:00:00 128 mm[Hg] [facility] Diastolic blood pressure 2024-10-24 05:00:00 87 mm[Hg] [facility] Heart rate 2024-10-24 05:00:00 64 /min [facility] Body temperature 2024-10-24 05:00:00 36.5 Anjelica [facility] Respiratory rate 2024-10-24 05:00:00 12 /min [facility] Oxygen saturation in Arterial blood by Pulse oximetry 2024-10-24 05:00:00 97 /min [facility] Body height 2024-10-24 01:11:00 157.5 cm [facility] Body weight 2024-10-24 01:11:00 53.978 kg [facility] BMI 2024-10-24 01:11:00 21.77 kg/m2 [facility] Body height 2024-10-20 18:20:00 157.5 cm Adriane ey Seybold - External Body weight 2024-10-20 18:20:00 53.524 kg Adriane ey Seybold - External BMI 2024-10-20 18:20:00 21.58 kg/m2 Adriane ey Seybold - External Systolic blood pressure 2024-10-13 15:25:00 114 mm[Hg] Isabel Seybo ld - External Diastolic blood pressure 2024-10-13 15:25:00 76 mm[Hg] Isabel ybo ld - External Heart rate 2024-10-13 15:25:00 [...] Systolic blood pressure 2024-09-06 14:17:00 107 mm[Hg] [facility] Diastolic blood pressure 2024-09-06 14:17:00 83 mm[Hg] [facility] Heart rate 2024-09-06 14:17:00 72 /min [facility] Body temperature 2024-09-06 14:17:00 36.94 Anjelica [facility] Respiratory rate 2024-09-06 14:17:00 16 /min [facility] Body height 2024-09-06 14:17:00 157.5 cm [facility] Body weight 2024-09-06 14:17:00 52.164 kg [facility] BMI 2024-09-06 14:17:00 21.03 kg/m2 [facility] Oxygen saturation in Arterial blood by Pulse oximetry 2024-09-06 14:17:00 97 /min [facility] Systolic blood pressure 2024-09-01 16:01:00 112 mm[Hg] Isabel Muñozybo ld - External Diastolic blood pressure 2024-09-01 16:01:00 64 mm[Hg] Isabel Seybo ld - External Heart rate 2024-09-01 16:01:00 82 /min Kelse y Seybold - External Body temperature 2024-09-01 16:01:00 36.83 Anjelica Isabel Seybold - External Respiratory rate 2024-09-01 16:01:00 16 /min Isabel Seybold - External Body height 2024-09-01 16:01:00 157.5 cm Adriane ey Seybold - External Body weight 2024-09-01 16:01:00 52.436 kg Adriane ey Seybold - External BMI 2024-09-01 16:01:00 21.14 kg/m2 Adriane torsten Seybold - External Oxygen saturation in Arterial blood by Pulse oximetry 2024-09-01 16:01:00 98 /min Isabel Muñozybo ld - External Body weight 2024-08-18 14:32:00 [...] blood pressure 2024-07-21 19:55:00 118 mm[Hg] Isabel ybo ld - External Diastolic blood pressure 2024-07-21 19:55:00 70 mm[Hg] Isabel Muñozybo ld - External Heart rate 2024-07-21 19:55:00 74 /min Kel y ybold - External Body temperature 2024-07-21 19:55:00 36.78 Anjelica Isabel Sewell - External Respiratory rate 2024-07-21 19:55:00 16 /min Isabel Sewell - External Body height 2024-07-21 19:55:00 157.5 cm Adriane sarmiento Seybold - External Body weight 2024-07-21 19:55:00 52.527 kg Adriane sarmiento Seybold - External BMI 2024-07-21 19:55:00 21.18 kg/m2 Adriane Sewell - External Oxygen saturation in Arterial blood by Pulse oximetry 2024-07-21 19:55:00 99 /min Isabel Quinones ld - External Body Weight 2024-07-15 00:00:00 112 [lb_av] [facility] BMI (Body Mass Index) 2024-07-15 00:00:00 20.5 kg/m2 [facility] Height 2024-07-15 00:00:00 62 [in_i] [facility] Systolic blood pressure 2024-06-30 00:30:00 105 mm[Hg] [facility] Diastolic blood pressure 2024-06-30 00:30:00 86 mm[Hg] [facility] Heart rate 2024-06-30 00:30:00 82 /min [facility] Respiratory rate 2024-06-30 00:30:00 19 /min [facility] Oxygen saturation in Arterial blood by Pulse oximetry 2024-06-30 00:30:00 96 /min [facility] Body temperature 2024-06-29 20:16:00 37.11 Anjelica [facility] Body height 2024-06-29 20:16:00 157.5 cm [facility] Body weight 2024-06-29 20:16:00 54.432 kg [facility] BMI 2024-06-29 20:16:00 21.95 kg/m2 [facility] Height 2024-06-18 00:00:00 62 [in_i] [facility] [...] Systolic blood pressure 2024-05-05 16:26:00 119 mm[Hg] [facility] Diastolic blood pressure 2024-05-05 16:26:00 79 mm[Hg] [facility] Heart rate 2024-05-05 16:26:00 70 /min [facility] Body [facility] 2024-05-05 16:26:00 36.72 Anjelica [facility] Respiratory rate 2024-05-05 16:26:00 18 /min [facility] Body height 2024-05-05 16:26:00 157.5 cm [facility] Body weight 2024-05-05 16:26:00 53.298 kg [facility] BMI 2024-05-05 16:26:00 21.49 kg/m2 [facility] Oxygen saturation in Arterial blood by Pulse oximetry 2024-05-05 16:26:00 99 /min [facility] BMI (Body Mass Index) 2024-04-30 00:00:00 21.9 kg/m2 [facility] Height 2024-04-30 00:00:00 62 [in_i] [facility] BP Systolic 2024-04-30 00:00:00 113 mm[Hg] [facility] BP Diastolic 2024-04-30 00:00:00 73 mm[Hg] [facility] Body Weight 2024-04-30 00:00:00 119.6 [lb_av] [facility] Systolic blood pressure 2024-04-28 21:05:00 100 mm[Hg] [facility] Diastolic blood pressure 2024-04-28 21:05:00 65 mm[Hg] [facility] Heart rate 2024-04-28 21:05:00 75 /min [facility] Body temperature 2024-04-28 21:05:00 36.94 Anjelica [facility] Body height 2024-04-28 21:05:00 157.5 cm [facility] Body weight 2024-04-28 21:05:00 53.524 kg [facility] BMI 2024-04-28 21:05:00 21.58 kg/m2 [facility] Oxygen saturation in Arterial blood by Pulse oximetry 2024-04-28 21:05:00 97 /min [facility] BP Systolic 2024-04-03 00:00:00 120 mm[Hg] [facility] Height 2024-04-03 00:00:00 62 [in_i] [facility] Body Weight 2024-04-03 00:00:00 114 [lb_av] [facility] BMI (Body Mass Index) 2024-04-03 00:00:00 20.9 kg/m2 [facility] BP Diastolic 2024-04-03 00:00:00 82 mm[Hg] [facility] Systolic blood pressure 2024-04-02 23:20:00 129 mm[Hg] [facility] Diastolic blood pressure 2024-04-02 23:20:00 77 mm[Hg] [facility] Heart rate 2024-04-02 23:20:00 88 /[facility] Body temperature 2024-04-02 23:20:00 36.61 Anjelica [facility] Respiratory rate 2024-04-02 23:20:00 18 /min [facility] Oxygen saturation in Arterial blood by Pulse oximetry 2024-04-02 23:20:00 99 /min [facility] Body height 2024-04-02 18:16:00 157.5 cm [facility] Body weight 2024-04-02 18:16:00 52.164 kg [facility] BMI 2024-04-02 18:16:00 21.03 kg/m2 [facility] Systolic blood pressure 2024-03-26 04:00:00 140 mm[Hg] [facility] Diastolic blood pressure 2024-03-26 04:00:00 96 mm[Hg] [facility] Heart rate 2024-03-26 04:00:00 72 /min [facility] Body temperature 2024-03-26 04:00:00 36.83 Anjelica [facility] Respiratory rate 2024-03-26 04:00:00 17 /min [facility] Oxygen saturation in Arterial blood by Pulse oximetry 2024-03-26 04:00:00 94 /min [facility] Body height 2024-03-26 00:20:00 157.5 cm [facility] Body weight 2024-03-26 00:20:00 52.164 kg [facility] BMI 2024-03-26 00:20:00 21.03 kg/m2 [facility] BP Diastolic 2024-03-20 00:00:00 79 mm[Hg] [...] Systolic blood pressure 2024-01-19 03:09:00 121 mm[Hg] [facility] Diastolic blood pressure 2024-01-19 03:09:00 104 mm[Hg] [facility] Heart rate 2024-01-19 03:09:00 65 /min [facility] Respiratory rate 2024-01-19 03:09:00 15 /min [facility] Oxygen saturation in Arterial blood by Pulse oximetry 2024-01-19 03:09:00 97 /min [facility] Body temperature 2024-01-18 22:21:00 37.28 Anjelica [facility] Body height 2024-01-18 22:21:00 157.5 cm [facility] Body weight 2024-01-18 22:21:00 51.256 kg [facility] BMI 2024-01-18 22:21:00 20.67 kg/m2 [facility] Systolic blood pressure 2023-12-18 17:30:00 108 mm[Hg] [facility] Diastolic blood pressure 2023-12-18 17:30:00 79 mm[Hg] [facility] Heart rate 2023-12-18 17:30:00 62 /min [facility] Body temperature 2023-12-18 17:30:00 36.89 Anjelica [facility] Oxygen saturation in Arterial blood by Pulse oximetry 2023-12-18 17:30:00 96 /min [facility] Respiratory rate 2023-12-18 16:30:00 18 /min [facility] Body height 2023-12-18 15:31:00 157.5 cm [facility] Body weight 2023-12-18 15:31:00 49.896 kg [facility] BMI 2023-12-18 15:31:00 20.12 kg/m2 [facility] Systolic blood pressure 2023-09-29 03:39:00 125 mm[Hg] [facility] Diastolic blood pressure 2023-09-29 03:39:00 86 mm[Hg] [facility] Heart rate 2023-09-29 03:39:00 68 /min [facility] Respiratory rate 2023-09-29 03:39:00 16 /min [facility] Oxygen saturation in Arterial blood by Pulse oximetry 2023-09-29 03:39:00 98 /min [facility] Body temperature 2023-09-29 01:15:00 36.72 Anjelica [facility] Body height 2023-09-29 01:15:00 157.5 cm [facility] Body weight 2023-09-29 01:15:00 52.164 kg [facility] BMI 2023-09-29 01:15:00 21.03 kg/m2 [facility] Systolic blood pressure 2023-08-04 07:35:00 110 mm[Hg] [facility] Diastolic blood pressure 2023-08-04 07:35:00 77 mm[Hg] [facility] Heart rate 2023-08-04 07:35:00 69 /min [facility] Respiratory rate 2023-08-04 07:35:00 16 /min [facility] Oxygen saturation in Arterial blood by Pulse oximetry 2023-08-04 07:35:00 96 /min [facility] Body temperature 2023-08-04 05:03:00 36.78 Anjelica [facility] Body weight 2023-08-04 01:38:00 52.164 kg [facility] BMI 2023-08-04 01:38:00 21.03 kg/m2 [facility] Systolic blood pressure 2023-06-28 07:00:00 130 mm[Hg] [facility] Diastolic blood pressure 2023-06-28 07:00:00 96 mm[Hg] [facility] Heart rate 2023-06-28 07:00:00 72 /min [facility] Body temperature 2023-06-28 07:00:00 37.17 Anjelica [facility] Respiratory rate 2023-06-28 07:00:00 16 /min [facility] Oxygen saturation in Arterial blood by Pulse oximetry 2023-06-28 07:00:00 99 /min [facility] Body height 2023-06-28 06:07:00 157.5 cm [facility] Body weight 2023-06-28 06:07:00 54.432 kg [facility] BMI 2023-06-28 06:07:00 21.95 kg/m2 [facility] Systolic blood pressure 2023-06-21 01:07:11 101 mm[Hg] [facility] Diastolic blood pressure 2023-06-21 01:07:11 72 mm[Hg] [facility] Heart rate 2023-06-21 01:07:11 76 /min [facility] Body temperature 2023-06-21 01:07:11 37.06 Anjelica [facility] Respiratory rate 2023-06-21 01:07:11 16 /min [facility] Oxygen saturation in Arterial blood by Pulse oximetry 2023-06-21 01:07:11 98 /min [facility] Body height 2023-06-20 22:50:00 157.5 cm [facility] Body weight 2023-06-20 22:50:00 54.432 kg [facility] BMI 2023-06-20 22:50:00 21.95 kg/m2 [facility] Systolic blood pressure 2024-04-28 21:05:00 100 mm[Hg] [facility] Diastolic blood pressure 2024-04-28 21:05:00 65 mm[Hg] [facility] Heart rate 2024-04-28 21:05:00 75 /min [facility] Body temperature 2024-04-28 21:05:00 36.94 Anjelica [facility] Body height 2024-04-28 21:05:00 157.5 cm [facility] Body weight 2024-04-28 21:05:00 53.524 kg [facility] BMI 2024-04-28 21:05:00 21.58 kg/m2 [facility] Oxygen saturation in Arterial blood by Pulse oximetry 2024-04-28 21:05:00 97 /min [facility] Respiratory rate 2024-04-02 23:20:00 18 /min [facility] Procedures Procedure Date / Time Performed Performing Clinician Source US NECK & HEAD 2025-02-24 00:00:00 Isabel Sewell - External CBC WITH DIFFERENTIAL 2025-02-24 00:00:00 Isabel Sewell - External COMP. METABOLIC PANEL (14) 2025-02-24 00:00:00 Isabel Sewell - External URINALYSIS 2024-10-24 02:55:00 Yuly Saucedo [facility] CT ABDOMEN PELVIS W CONTRAST 2024-10-24 02:22:16 Yuly Saucedo [facility] LIPASE 2024-10-24 01:47:00 Yuly Saucedo [facility] TROPONIN I 2024-10-24 01:47:00 Yuly Saucedo [facility] COMP. METABOLIC PANEL ([id number]) 2024-10-24 01:47:00 Yuly Saucedo [facility] CBC WITH DIFF 2024-10-24 01:47:00 Yuly Saucedo [facility] N-TERMINAL PRO-BNP 2024-10-24 01:47:00 Yuly Deleon [facility] XR ANKLE 3+ VW LEFT 2024-09-06 15:15:18 Daniela Norris [facility] CT, abdomen + pelvis, w/ contrast 2024-07-24 00:00:00 [facility], abdomen + pelvis, w/wo contrast 2024-07-18 00:00:[address] [facility] [address], abdomen + pelvis, w/ contrast 2024-07-15 00:00:00 [facility] CHANGE DRAINAGE DEVICE IN PELVIC CAVITY, EXTERNAL 2024-07-04 00:00:00 KYRPO [facility] DRAINAGE OF VAGINA WITH DRAINAGE DEVICE, PERC APPR 2024-07-01 00:00:00 KUMSA.02 [facility] DRAINAGE OF PELVIC CAVITY WITH DRAIN DEV, PERC KIMI 2024-07-01 00:00:00 KUMSA.02 [facility]ION [facility] INFUSION DEVICE INTO UPPER VEIN, PERC 2024-06-30 00:00:00 KUMSA.[address] [facility] [address] ABDOMEN PELVIS W CONTRAST 2024-06-29 21:51:47 Yuly Saucedo [facility] LIPASE 2024-06-29 20:47:00 Yuly Saucedo [facility] COMP. METABOLIC PANEL ([id number]) 2024-06-29 20:47:00 Yuly Saucedo [facility] CBC WITH DIFF 2024-06-29 20:47:00 Yuly Saucedo [facility] Laparoscopic Hysterectomy 2024-06-23 00:00:00 [facility] MAMMO, diagnostic, digital, bilateral 2024-04-30 00:00:00 [facility] US, breast, unilateral 2024-04-30 00:00:00 [facility] POCT URINALYSIS 2024-04-28 22:14:00 Paresh Curiel [facility] POCT URINALYSIS 2024-04-28 22:14:00 Paresh Curiel [facility] MAMMO, diagnostic, digital, bilateral 2024-04-23 00:00:00 [facility] US, breast, bilateral 2024-04-23 00:00:00 [facility] US, breast, unilateral 2024-04-03 00:00:00 [facility] RAPID STREP SCREEN FOR GROUP A 2024-04-02 18:57:00 Yuly Saucedo [facility] INFLUENZA A/B RSV COVID NAAT 2024-04-02 18:57:00 Yuly Saucedo [facility] INFLUENZA A/B RSV COVID NAAT 2024-04-02 18:57:00 Yuly Saucedo [facility] RAPID STREP SCREEN FOR GROUP A 2024-04-02 18:57:00 Yuly Saucedo [facility] THROAT CULTURE 2024-04-02 18:57:00 Yuly Saucedo [facility] LAB ONLY COVID INTERPRETATION 2024-04-02 18:57:00 Yuly Saucedo [facility] OVARY TORSION 2024-03-26 03:17:59 Jona Granados [facility] US OVARY TORSION 2024-03-26 03:17:59 Jona Granados [facility] CT ABDOMEN PELVIS W CONTRAST 2024-03-26 01:27:33 Jona Granados [facility] CT ABDOMEN PELVIS W CONTRAST 2024-03-26 01:27:33 Jona Granados [facility] BASIC METABOLIC PANEL (NA, K, CL, CO2, GLUCOSE, BUN, CREATININE, CA) 2024-03-26 00:48:00 Jona Granados [facility] CBC WITH DIFF 2024-03-26 00:48:00 Jona Granados [facility] CBC WITH DIFF 2024-03-26 00:48:00 Jona Granados [facility] BASIC METABOLIC PANEL (NA, K, CL, CO2, GLUCOSE, BUN, CREATININE, CA) 2024-03-26 00:48:00 Jona Granados [facility] URINALYSIS 2024-03-26 00:45:00 Jona Granados [facility] POCT TEST 2024-03-26 00:45:00 Jona Granados [facility] URINALYSIS 2024-03-26 00:45:00 Jona Granados [facility] POCT TEST 2024-03-26 00:45:00 Jona Granados [facility] US TRANSVAGINAL 2024-01-24 00:00:[address] ABDOMEN PELVIS W CONTRAST 2024-01-19 01:54:58 Caren Johnston [facility] LIPASE 2024-01-19 01:21:00 Caren Johnston [facility] COMP. METABOLIC PANEL ([id number]) 2024-01-19 01:21:00 Caren Johnston [facility] CBC WITH DIFF 2024-01-19 01:20:00 Caren Johnston [facility] URINALYSIS 2024-01-18 22:34:00 Caren Johnston [facility] POCT TEST 2024-01-18 22:34:00 Agueda Johnston [facility] CT LUMBAR SPINE WO CONTRAST 2023-12-18 16:46:32 Sina Serjio [facility] CT ABDOMEN PELVIS WO CONTRAST 2023-12-18 16:32:00 Serjio Andino [facility] COMP. METABOLIC PANEL ([id number]) 2023-12-18 16:22:00 Serjio Andino [facility] CBC WITH DIFF 2023-12-18 16:22:00 Serjio Andino [facility] POCT TEST 2023-12-18 15:46:00 Jennifer Andino [facility] URINALYSIS 2023-12-18 15:45:00 [facility] 2023-08-04 05:13:00 KosRich kaba [facility] TEST, SERUM 2023-08-04 05:13:00 Uyen Montilla [facility] COMP. METABOLIC PANEL ([id number]) 2023-08-04 05:13:00 [facility] WITH DIFF 2023-08-04 05:12:00 [facility] US GALL BLADDER 2023-08-04 02:59:30 Kosfritz [facility] URINALYSIS 2023-08-04 02:31:00 [facility] CONSENT/REFUSAL FOR DIAGNOSIS AND TREATMENT 2023-08-04 01:36:23 Doctor Unassigned, [place] [facility] COMP. METABOLIC PANEL ([id number]) 2023-06-28 06:30:00 Lee Jett [facility] CBC WITH DIFF 2023-06-28 06:30:00 [facility] 2023-06-28 06:30:00 [facility] URINE DRUG (IMMUNOASSAY) - COMPREHENSIVE DRUG SCREEN W/O REFLEX 2023-06-28 06:30:00 [facility] CONSENT/REFUSAL FOR DIAGNOSIS AND TREATMENT 2023-06-28 05:58:09 Doctor Unassigned, [place] [facility] PELVIS COMPLETE WITH TRANSVAGINAL 2023-06-21 00:41:20 Aroldo Yesenia [facility] POCT TEST 2023-06-21 00:10:00 Lashawn Kendrick [facility] COMP. METABOLIC PANEL ([id number]) 2023-06-21 00:01:00 Yesenia Kendrick [facility] CBC WITH DIFF 2023-06-21 00:01:00 Yesenia Kendrick [facility] URINALYSIS 2023-06-21 00:01:00 Yesenia Kendrick [facility] NOTICE OF PRIVACY PRACTICES 2023-06-20 22:47:12 Doctor Unassigned, [place] [facility] CONSENT/REFUSAL FOR DIAGNOSIS AND TREATMENT 2023-06-20 22:46:00 Doctor Unassigned, [place] [facility] Cholecystectomy 2009-06-04 00:00:00 [facility] Ligation of Fallopian Tube 1999-06-04 00:00:00 [facility] 1992-06-04 00:00:00 [facility] Plan of Care Planned Activity Planned Date Details Comments Source Encounters Start Date/Time End Date/Time Encounter Type Admission Type Attending [facility] Facility Care Department Encounter ID Source 2025-06-17 08:45:00 2025-06-17 08:45:00 Outpatient AKIL MENDEZ [id number] [facility] 2025-06-15 10:00:00 2025-06-15 10:00:00 Outpatient AKIL MENDEZ [id number] [facility] 2025-04-21 14:00:00 2025-04-21 14:00:00 Outpatient MARY GOODMAN [id number] [facility] 2025-03-27 08:00:00 2025-03-27 08:00:00 Outpatient ANA LUISA DINH [id number] [facility] 2025-03-24 11:15:00 2025-03-24 11:15:00 Outpatient AKIL MENDEZ [id number] [facility] 2025-03-23 12:30:00 2025-03-23 12:30:00 Outpatient ISABEL AUSTIN [id number] [facility] 2025-03-09 16:30:00 2025-03-09 16:30:00 Outpatient AKIL MENDEZ [id number] [facility] 2025-03-03 16:30:00 2025-03-03 16:30:00 Outpatient AKIL MENDEZSEY ISABEL [id number] [facility] 2025-02-27 00:00:00 2025-02-27 00:00:00 Outpatient AKIL MENDEZ ISABEL ISABEL [id number] [facility] 2025-02-24 11:00:00 2025-02-24 11:00:00 Outpatient GUSTABO SOLIZ ISABEL AUSTIN [id number] [facility] 2025-02-24 10:00:00 2025-02-24 10:00:00 Outpatient REMIGIO DUMONTSEY ISABEL [id number] [facility] 2025-02-24 09:30:00 2025-02-24 09:30:00 Outpatient PREZAAKIL Flowers ISABEL ISABEL [id number] Isabel [facility] 2025-02-24 00:00:00 2025-02-24 00:00:00 Outpatient PREAKIL LANTIGUA ISABEL AUSTIN [id number] [facility] 2025-02-20 00:00:00 2025-02-20 00:00:00 Outpatient MD ISABEL GARCIA [id number] [facility] 2025-02-20 00:00:00 2025-02-20 00:00:00 Outpatient GUSTABO SOLIZ ISABEL AUSTIN [id number] [facility] 2025-02-19 00:00:00 2025-02-19 00:00:00 Outpatient PREAKIL LANTIGUA ISABEL AUSTIN [id number] [facility] 2025-02-18 00:00:00 2025-02-18 00:00:00 Outpatient MARY GOODMAN [id number] [facility] 2025-02-14 00:00:00 2025-02-14 00:00:00 Outpatient ISABEL AUSTIN [id number] Isabel Sey[facility] 2025-02-13 16:00:00 2025-02-13 16:00:00 Outpatient MARY GOODMAN [id number] Siabel Seybold 2025-02-13 14:00:00 2025-02-13 14:00:00 Outpatient WYATT OSULLIVAN [id number] [facility] 2025-02-10 00:00:00 2025-02-10 00:00:00 Outpatient AKIL MENDEZ ISABEL [id number] [facility] 2025-02-10 00:00:00 2025-02-10 00:00:00 Outpatient GUSTABO SOLIZ ISABEL AUSTIN [id number] [facility] 2025-01-29 08:15:00 2025-01-29 08:15:00 Outpatient ISABEL AUSTIN [id number] [facility] 2025-01-29 00:00:00 2025-01-29 00:00:00 Outpatient MD ISABEL GARCIA [id number] [facility] 2025-01-27 00:00:00 2025-01-27 00:00:00 Outpatient ISABEL AUSTIN [id number] [facility] 2025-01-19 11:30:00 2025-01-19 11:30:00 Outpatient CONSTANZA, GUSTABO ISABEL ISABEL [id number] [facility] 2025-01-16 00:00:00 2025-01-16 00:00:00 Outpatient SOLIZ, GUSTABO ISABEL ISABEL [id number] [facility] 2025-01-15 09:00:00 2025-01-15 09:00:00 Outpatient GUSTABO SOLIZ ISABEL ISABEL [id number] [facility] 2025-01-15 00:00:00 2025-01-15 00:00:00 Outpatient ISABEL AUSTIN [id number] [facility] 2025-01-13 12:30:00 2025-01-13 12:30:00 Outpatient ISABEL AUSTIN [id number] [facility] 2025-01-10 00:00:00 2025-01-10 00:00:00 Outpatient [facility] [id number] [facility]10 00:00:00 2025-01-10 00:00:00 Outpatient JAMMIE GAO [id number] [facility] 2025-01-04 11:19:00 2025-01-04 12:29:00 Emergency X SINA, SERJIO RAMIREZ [facility] E[facility] [id number] [facility] 2024-12-30 00:00:00 2024-12-30 00:00:00 Outpatient MD ISABEL GARCIA [id number] [facility] 2024-12-23 13:45:00 2024-12-23 13:45:00 Outpatient KAYLAH CLARKE ISABEL AUSTIN [id number] [facility] 2024-12-22 14:30:00 2024-12-22 14:30:00 Outpatient BEBE PACHECO ISABEL AUSTIN [id number] [facility] 2024-12-19 00:00:00 2024-12-19 00:00:00 Outpatient AKIL MENDEZ ISABEL AUSTIN [id number] [facility] 2024-12-19 00:00:00 2024-12-19 00:00:00 Outpatient AKIL MENDEZ ISABEL AUSTIN [id number] [facility] 2024-12-18 08:15:00 2024-12-18 08:15:00 Outpatient PREZAAKIL Flowers ISABEL AUSTIN [id number] [facility] 2024-12-18 00:00:00 2024-12-18 00:00:00 Outpatient AKIL MENDEZ ISABEL AUSTIN [id number] [facility] 2024-12-16 11:05:00 2024-12-16 11:05:00 Outpatient ISABEL AUSTIN [id number] [facility] 2024-12-10 14:30:00 2024-12-10 14:30:00 Outpatient SOLIZGUSTABO MTZ ISABEL AUSTIN [id number] [facility] 2024-10-29 00:00:00 2024-11-29 18:21:40 Patient Secure Msg Doctor Unassigned, [place] Doctor Unassigned, [place] [facility] 1.2.840.114 350.1.13.10 4.2.7.2.686 [id number] [facility] 2024-11-28 12:30:00 2024-11-28 12:30:00 Outpatient RADHA QUINTANA [facility] [id number] [facility] 2024-11-24 00:00:00 2024-11-24 00:00:00 Outpatient AKIL MENDEZ ISABEL AUSTIN [id number] [facility] 2024-11-14 14:30:00 2024-11-14 14:30:00 Outpatient PREZAAKIL Flowers ISABEL AUSTIN [id number] [facility] 2024-11-06 00:00:00 2024-11-06 00:00:00 Outpatient ISABEL AUSTIN [id number] [facility] 2024-10-29 13:18:36 2024-10-29 13:18:36 Outpatient SFA [facility] [id number] Josef Leslie 2024-10-23 20:07:00 2024-10-24 00:21:00 Emergency X AUFDERHEIDE , YULY AUFDERHEIDE , YULY [facility] E[facility] [id number] [facility] 2024-10-24 00:00:00 2024-10-24 00:00:00 Outpatient PREZARYANN FlowersDAMIAN AUSTIN [id number] [facility] 2024-10-20 13:10:00 2024-10-20 13:10:00 Outpatient ELYSIA TYREEGLADYS AUSTIN [id number] [facility] 2024-10-18 00:00:00 2024-10-18 00:00:00 Outpatient PREZARYANN FlowersDAMIAN AUSTIN [id number] [facility] 2024-10-14 13:10:00 2024-10-14 13:10:00 Outpatient ELYSIATYREE [id number] [facility] 2024-10-14 10:40:00 2024-10-14 10:40:00 Outpatient ELYSIATYREE [id number] [facility] 2024-10-13 10:30:00 2024-10-13 10:30:00 Outpatient PREZASAKIL [id number] [facility] 2024-10-10 00:00:00 2024-10-10 00:00:00 Outpatient MD ISABEL GARCIA [id number] [facility] 2024-10-09 00:00:00 2024-10-09 00:00:00 Outpatient BEBE PACHECO [id number] Isabel sandra 2024-10-08 00:00:00 2024-10-08 00:00:00 Saulo Montenegro MD: [address], [address], [place] [address] , Ph. [facility] - GC_GCBZW_La [facility]* [id number] [facility] 2024-10-03 09:30:00 2024-10-03 09:30:00 Outpatient BEBE PACHECO [id number] [facility] 2024-10-02 00:00:00 2024-10-02 00:00:00 Outpatient KVNG IBRAHIM [id number] [facility] 2024-10-01 00:00:00 2024-10-01 00:00:00 Outpatient MD ISABEL GARCIA [id number] [facility] 2024-10-01 00:00:00 2024-10-01 00:00:00 Outpatient AKIL MENDEZ [id number] Isabel sandra 2024-10-01 00:00:00 2024-10-01 00:00:00 Outpatient KVNG IBRAHIM [id number] Isabel sandra 2024-09-29 09:50:00 2024-09-29 09:50:00 Outpatient TYREE NAIDU [id number] [facility] 2024-09-15 14:37:12 2024-09-15 14:37:12 Outpatient SFA SFA [id number] Josef Leslie 2024-09-10 00:00:00 2024-09-10 00:00:00 TIMMY Abdullahi: [address], [address], [place] [address] , Ph. [facility] - GC_GCBZW_Temitope speedy Price* [id number] [facility] 2024-09-06 09:19:00 2024-09-06 12:31:00 Emergency X JAQUI NORRIS [facility] [id number] [facility] 2024-09-06 09:19:00 2024-09-06 12:31:00 Emergency Jaqui Norris [facility] 1.2.840.114 350.1.13.10 4.2.7.2.686 [id number] [facility] 2024-09-01 11:00:00 2024-09-01 11:00:00 Outpatient AKIL MENDEZ [id number] [facility] 2024-08-18 09:20:00 2024-08-18 09:20:00 Outpatient ELYSIATYREE OLEA [id number] [facility] 2024-08-18 09:15:00 2024-08-18 09:15:00 Outpatient ISABEL AUSTIN [id number] [facility] 2024-08-15 00:00:00 2024-08-15 00:00:00 Outpatient TYREE NAIDU [id number] [facility] 2024-08-13 00:00:00 2024-08-13 00:00:00 TIMMY Abdullahi: [address], [address], [place] [address] , Ph. [facility] - GC_GCBZW_Temitope speedy Price* [id number] [facility] 2024-08-11 00:00:00 2024-08-11 00:00:00 Outpatient AKIL MENDEZ [id number] [facility] 2024-08-05 00:00:00 2024-08-05 00:00:00 Outpatient AKIL MENDEZ [id number] [facility] 2024-08-04 00:00:00 2024-08-04 00:00:00 Outpatient PREAKIL LANTIGUA ISABEL AUSTIN [id number] [facility] 2024-07-29 09:05:00 2024-07-29 09:05:00 Outpatient Suma Winchester HCAPM RADI [id number] [facility] 2024-07-29 06:25:00 2024-07-29 06:25:00 Outpatient Saulo Fonseca HCAPM RADI [id number] 34 [facility] 2024-07-29 00:00:00 2024-07-29 00:00:00 Saulo Montenegro MD: [address], [place] [address] , Ph. [facility] - GC_GCBZW_Ma speedy Price* [id number] [facility] 2024-07-25 11:45:00 2024-07-25 11:45:00 Outpatient ISABEL AUSTIN [id number] [facility] 2024-07-21 14:00:00 2024-07-21 14:00:00 Outpatient PREZALionel, AKIL ISABEL AUSTIN [id number] [facility] 2024-07-16 00:00:00 2024-07-16 00:00:00 Outpatient PREZASRYANNAKILDAMIAN AUSTIN [id number] [facility] 2024-07-15 00:00:00 2024-07-15 00:00:00 Saulo Montenegro MD: [address], [place] [address] , Ph. [facility] - GC_GCBZW_Temitope Price* [id number] [facility] 2024-07-14 12:00:00 2024-07-14 12:00:00 Outpatient LAB90 ISABEL AUSTIN [id number] [facility] 2024-07-11 08:07:00 2024-07-11 08:07:00 Outpatient Suma Winchester HCAPM RADI [id number] 80 [facility] 2024-06-29 20:29:00 2024 15:29:00 Inpatient EM Levon Hurley HCAPM MEDI.01 [id number] 49 [facility] 2024-06-30 00:17:00 2024-06-30 00:17:00 Outpatient Orquidea Hurleysh HCACL LABO [id number] [facility] 2024-06-30 00:00:00 2024-06-30 00:00:00 Outpatient AKIL MENDEZ ISABEL AUSTIN [id number] [facility] 2024-06-29 14:14:00 2024-06-29 18:38:00 Emergency X YULY SAUCEDO ERIN [facility] ERT [id number] [facility] 2024-06-29 14:14:00 2024-06-29 18:38:00 Emergency Yuly Saucedo Arcelia [facility] 1..840.114 350.1.13.10 4.2.7.2.686 [id number] [facility] 2024-06-19 00:00:00 2024-06-27 08:50:50 Telephone Paresh Curiel [facility] 1..840.114 350.1.13.10 4.2.7.2.686 [id number] [facility] 2024-06-23 08:39:00 2024-06-23 08:39:00 Outpatient Saulo Fonseca HCAPM ROBI [id number] 63 [facility] 2024-06-18 00:00:00 2024-06-18 00:00:00 Arlen Hare, STUDENT LOAN COUNSELOR: [address], [place] [address] , Ph. [facility] - GC_GCBZW_[facility]* [id number] [facility] 2024-06-17 09:05:00 2024-06-17 09:05:00 Outpatient LAB90 ISABEL AUSTIN [id number] [facility] 2024-06-17 00:00:00 2024-06-17 00:00:00 Outpatient DANDRE JOHANSEN ISABEL [id number] [facility] 2024-06-17 00:00:00 2024-06-17 00:00:00 Outpatient MARY, AKIL AUSTIN ISABEL [id number] [facility] 2024-06-16 15:35:00 2024-06-16 15:35:00 Outpatient LAB90 ISABEL ISABEL [id number] [facility] 2024-06-16 14:30:00 2024-06-16 14:30:00 Outpatient YANGZALionel, AKIL AUSTIN ISABEL [id number] [facility] 2024-06-10 00:00:00 2024-06-10 00:00:00 Outpatient SAULO HUDDLESTON [facility] [id number] [facility] 2024-05-26 00:00:00 2024-05-30 10:34:01 Telephone Moisés Paresh [facility] .2.840.114 350.1.13.10 4.2.7.2.686 [id number] [facility] 2024-05-22 00:00:00 2024-05-23 15:55:04 Telephone Moisés Paresh [facility] 2.840.114 350.1.13.10 4.2.7.2.686 [id number] [facility] 2024-05-05 13:19:05 2024-05-05 13:19:05 Outpatient SFA ELINA [id number] Josef Leslie 2024-05-05 10:30:00 2024-05-05 10:51:29 Outpatient PARESH PAREDES [facility] [id number] [facility] 2024-05-05 10:30:00 2024-05-05 10:51:29 Office Visit Paresh Curiel [facility] 1.2.840.114 350.1.13.10 4.2.7.2.686 [id number] [facility] 2024-04-30 00:00:00 2024-04-30 10:16:07 Nurse Triage Sherri Hall Tina M [facility] 1..840.114 350.1.13.10 4.2.7.2.686 [id number] [facility] 2024-04-30 00:00:00 2024-04-30 00:00:00 Arlen Hare, STUDENT LOAN COUNSELOR: [address], [place] [address], [place] [address] , Ph. [facility] - GC_GCBZW_La [facility]* [id number] [facility] 2024-04-29 07:30:00 2024-04-29 07:30:00 Outpatient R PARESH CURIEL [facility] [id number] [facility] 2024-04-28 16:45:00 2024-04-28 16:45:00 Bicycle Courier Visit Paresh Curiel [facility] - 1..840.1 84430.1.1 3.104.2.7 .3.529062 .8 [id number] [facility] 2024-04-28 15:00:00 2024-04-28 15:50:34 Outpatient R PARESH CURIEL [facility] [id number] [facility] 2024-04-28 15:00:00 2024-04-28 15:50:34 Office Visit Paresh Curiel 1..840.1 56411.1.1 3.104.2.7 .3.575615 .8 [id number] [facility] 2024-04-28 00:00:00 2024-04-28 00:00:00 Travel 1.2.840.1 99000.1.1 3.104.2.7 .3.897605 .8 1.2.840.114 350.1.13.10 4.2.7.3.698 084.8 [id number] [facility] 2024-04-21 09:00:00 2024-04-21 09:00:00 Outpatient R PARESH CURIEL [facility] [id number] [facility] 2024-04-17 10:00:00 2024-04-17 10:00:00 Outpatient R ANA CRISTINA RAYMOND [facility] [id number] [facility] 2024-04-17 00:00:00 2024-04-17 09:21:02 Telephone Ana Cristina Raymond A 1.2.840.1 80950.1.1 3.104.2.7 .3.236992 .8 [id number] [facility] 2024-04-17 00:00:00 2024-04-17 00:00:00 Travel 1.2.840.1 62310.1.1 3.104.2.7 .3.150393 .8 1.2.840.114 350.1.13.10 4.2.7.3.698 084.8 [id number] [facility] 2024-04-15 00:00:00 2024-04-15 10:02:16 Telephone Pcp, Patient Does Not Have A 1.2.840.1 59607.1.1 3.104.2.7 .3.747295 .8 [id number] [facility] 2024-04-03 00:00:00 2024-04-03 00:00:00 Ashely Drew, STUDENT LOAN COUNSELOR: [address], [facility] [address], [place] [address] , Ph. [facility] - GC_GCBZW_La [facility]* [id number] [facility] 2024-04-02 13:18:00 2024-04-02 18:26:00 Emergency X YULY SAUCEDO ERIN [facility] E[facility] [id number] [facility] 2024-04-02 13:18:00 2024-04-02 18:26:00 Emergency Yuly Saucedo 1.2.840.1 07090.1.1 3.104.2.7 .3.860382 .8 [id number] [facility] 2024-04-02 00:00:00 2024-04-02 00:00:00 Travel 1.2.840.1 25345.1.1 3.104.2.7 .3.318658 .8 1.2.840.114 350.1.13.10 4.2.7.3.698 084.8 [id number] [facility] 2024-03-25 19:24:00 2024-03-25 23:06:00 Emergency X ROBERTA CHRISSYJONA GANDHI [facility] ERT [id number] [facility] 2024-03-25 19:24:00 2024-03-25 23:06:00 Emergency Roberta Chrissymadeline Ruiz 1.2.840.1 84217.1.1 3.104.2.7 .3.838319 .8 [id number] [facility] 2024-03-25 00:00:00 2024-03-25 00:00:00 Travel 1.2.840.1 56427.1.1 3.104.2.7 .3.909831 .8 1.2.840.114 350.1.13.10 4.2.7.3.698 084.8 [id number] [facility] 2024-03-20 00:00:00 2024-03-20 00:00:00 Saulo Montenegro MD: [facility] [address], [place] [phone] , Ph. [facility] - GC_GCBZW_Temitope ruff Albert* [id number] [facility] 2024-03-06 00:00:00 2024-03-06 00:00:00 LEEANN HobbsP: [address], [address], [place] [address] , Ph. [facility] - GC_GCBZW_Ma speedy [place]* [id number] [facility] 2024-02-21 00:00:00 2024-02-21 00:00:00 JUAN Martínez: [address], [address], [place] [address] , Ph. [facility] - GC_GCBZW_Ma speedy Albert* [id number] [facility] 2024-01-31 00:00:00 2024-01-31 00:00:00 Darlyn Molina, STUDENT LOAN COUNSELOR: [address], [address], [place] [address] , Ph. [facility] - GC_GCBZW_Ma speedy Albert* [id number] [facility] 2024-01-24 00:00:00 2024-01-24 13:13:00 Letter (Out) David Blood [facility] 1.2.840.114 350.1.13.10 4.2.7.2.686 [id number] [facility] 2024-01-24 00:00:00 2024-01-24 00:00:00 Saulo Montenegro MD: [address], [address], [place] [phone] , Ph. [facility] - GC_GCBZW_Ma speedy Albert* [id number] [facility] 2024-01-21 00:00:00 2024-01-21 00:00:00 Darlyn Molina, STUDENT LOAN COUNSELOR: [address], [address], [place] [address] , Ph. [facility] - GC_GCBZW_La speedy Price* [id number] [facility] 2024-01-18 17:23:00 2024-01-18 22:18:00 Emergency X MELINDAINESCAREN SHINTA [facility] E[facility] [id number] [facility] 2024-01-18 17:23:00 2024-01-18 22:18:00 Emergency Caren Johnston [facility] 1.2.840.114 350.1.13.10 4.2.7.2.686 [id number] [facility] 2024-01-14 09:35:44 2024-01-14 09:35:44 Outpatient SFA SFA [id number] Josef Leslie 2023-12-24 15:36:17 2023-12-24 15:36:17 Outpatient SFA SFA [id number] Josef Leslie 2023-12-18 10:33:00 2023-12-18 13:04:00 Emergency X SERJIO ANDINO DONNELL [facility] ERT [id number] [facility] 2023-12-18 10:33:00 2023-12-18 13:04:00 Emergency Serjio Andino [facility] 1..840.114 350.1.13.10 4.2.7.2.686 [id number] [facility] 2023-12-17 08:45:10 2023-12-17 08:45:10 Outpatient SFA SFA [id number] Josef Alas Anuj 2023-12-03 13:05:31 2023-12-03 13:05:31 Outpatient SFA SFA [id number] Josef F Anuj 2023-11-20 14:56:11 2023-11-20 14:56:11 Outpatient SFA SFA [id number] Josef Leslie 2023-11-13 13:46:51 2023-11-13 13:46:51 Outpatient [facility] [id number] Josef Leslie 2023-11-12 14:45:00 2023-11-12 14:45:00 Outpatient ALIN WYATT [id number] [facility] 2023-09-28 20:21:00 2023-09-28 22:45:00 Emergency X MELINDAINESCAREN [facility] ERT [id number] [facility] 2023-09-28 20:21:00 2023-09-28 22:45:00 Emergency Preston Caren [facility] 1.2.840.114 350.1.13.10 4.2.7.2.686 [id number] [facility] 2023-09-04 00:00:00 2023-09-04 00:00:00 Patient Outreach Beba Crespo 1.2840.114 350.1.13.10 4.2.7.2.686 [id number] [facility] 2023-08-24 00:00:00 2023-08-24 00:00:00 Patient Secure Msg Doctor Unassigned, [place] [facility] 1.2840.114 350.1.13.10 4.2.7.2.686 [id number] [facility] 2023-08-03 19:46:00 2023-08-04 01:39:00 Emergency X RICH MONTILLA PAUL [facility] ERT [id number] [facility] 2023-08-03 19:46:00 2023-08-04 01:39:00 Emergency Rich Mont[facility] 1.2840.114 350.1.13.10 4.2.7.2.686 [id number] [facility] 2023-06-28 00:00:00 2023-06-28 01:50:00 Emergency X SANDHIR, AMBICA [facility] ERT [id number] [facility] 2023-06-28 00:00:00 2023-06-28 01:50:00 Emergency Lee Jett [facility] 1.2.840.114 350.1.13.10 4.2.7.2.686 [id number] [facility] 2023-06-20 16:53:00 2023-06-20 19:24:00 Emergency Yesenia Kendrick [facility] 1.2.840.114 350.1.13.10 4.2.7.2.686 [id number] [facility] 2023-06-20 16:53:00 2023-06-20 19:24:00 Emergency X AROLDO [facility] ERT [id number] [facility] 2023-06-20 16:53:00 2023-06-20 16:53:00 Emergency X [facility]DO [facility] ERT [id number] [facility] Results Test Description Test Time Test [...] abnormality. Minimal levoconvex curvature of the lumbarspine [facility]-Gde1239-25-23 02:50:29* Test Item Value Reference Range Interpretation Comme [facility] NT-proBNP (test code = 67674-5) 22 pg/mL <=125 Lab Interpretation (test cod e = 15340-4) [facility]-10-24 02:34:28* Test Item Value Reference Range Interpretation Comme nts NA (test code = 9464463669) 138 mmol/L 135-145 K (test code = 9205412588) 4.2 mmol/L 3.5-5.0 CL (test code = 6628312580) 105 mmol/L 98-108 CO2 TOTAL (test code = 7442265244) 28 mmol/L 23-31 AGAP (test code = 1547281859) 5 2-16 BUN (test code = 7019469905) 23 mg/dL 7-23 GLUCOSE (test code = 8957438357) 74 mg/dL 70-110 CREATININE (test code = 2160-0) 0.77 mg/dL 0.50-1.04 TOTAL BILI (test code = 6444945724) 0.7 mg/dL 0.1-1.1 CALCIUM (test code = 3918200847) 9.1 mg/dL 8.6-10.6 T PROTEIN (test code = 1042579843) 8.1 g/dL 6.3-8.2 ALBUMIN (test code = 4607481018) 4.3 g/dL 3.5-5.0 ALK PHOS (test code = 7676204692) 63 U/L 34-122 ALTv (test code = 1742-6) 76 U/L 5-35 H AST(SGOT) (test code = 9205066143) 58 U/L 13-40 H eGFR (test code = 31808-5) 94.1 mL/min/1.73m2 CKD-EPI eGFR (2020). Assuming creatinine has been stable day-to-day for at least three months, the eGFR indicates Category G1 (>= 90 mL/min/1.73 m2) Lab Interpretation (test code = 63169-9) [facility]34:28* Test Item Value Reference Range Interpretation Comme nts LIPASE (test code = 6149858175) 211 U/L 0-220 Lab Interpretation (test cod e = 21847-9) Normal [facility] with Zfmc3935-23-02 02:12:23* Test Item Value Reference Range Interpretation [...] 33.1 g/dL 31.6-35.1 RDW-SD (test code = 92849-0) 45.5 fL 39.0-49.9 RDW-CV (test code = 788-0) 13.4 % 12.0-15.5 PLT (test code = 777-3) 274 166-358 MPV (test code = 73868-4) 9.7 fL 9.5-12.9 NRBC/100 WBC (test code = 0786683304) 0 0.0-10.0 NRBC x10^3 (test code = 6462469813) See_Comment [Automated messa ge] The system which generated this result transmitted reference range: 10*3/?L. The reference range was not used to interpret this result as normal/abnormal. GRAN MAT (NEUT) % (test code = 770-8) 65.3 % IMM GRAN % (test code = 5343833077) 0.3 % LYMPH % (test code = 736-9) 21.9 % MONO % (test code = 5905-5) 9.8 % EOS % (test code = 713-8) 2.2 % BASO % (test code = 706-2) 0.5 % GRAN MAT x10^3(ANC) (test code = 6018484334) 3.81 10*3/uL 1.88-7.09 IMM GRAN x10^3 (test code = 9747028418) 0.00-0.06 LYMPH x10^3 (test code = 731-0) 1.28 10*3/uL 1.32-3.29 L MONO x10^3 (test code = 742-7) 0.57 10*3/uL 0.33-0.92 EOS x10^3 (test code = 711-2) 0.13 10*3/uL 0.03-0.39 BASO x10^3 (test code = 704-7) 0.03 10*3/uL 0.01-0.07 Lab Interpretation (test code = 16504-5) [facility]normal [facility]oll[facility] [Units/volume] in Serum or Plasma 2024-09-11 00:00:00* Test Item Value Reference Range Interpretation Comme nts FSH (test code = FSH) 79.0 [facility]IU/[facility] vw [id number] 15:58:45ORDERING PROVIDER: JAQUI NORRIS HISTORY: Pain. TECHNIQUE: 3 views of the left ankle were performed. COMPARISON: Radiograph of the left ankle performed 09/28/2023 FINDINGS/[facility] Auto Differential panel - [id number] 00:00:00 * Test Item Value Reference Range [...] #) 0.1 10 0.0-0.2 [facility] W/AUTO [id number] 07:26:00* Test Item Value Reference Range Interpretation [...] NRBC#) 0.0 K/mm3 0.0-0.1 N CBC W/AUTO [id number] 13:05:00* Test Item Value Reference Range Interpretation [...] REVIEW CONSISTANT WITH AUTO DIFFERENTIAL. COMPREHENSIVE METABOLIC [id number] 11:56:00* Test Item Value Reference Range Interpretation [...] code = ALKP) 217 Unit/L 50-136 H [id number] 11:56:00* Test Item Value Reference Range Interpretation Comme nts PHOSPHOROUS (test code = PHOS) 3.7 MG/DL 2.5-4.9 N [id number] 11:56:00* Test Item Value Reference Range Interpretation Comme nts MAGNESIUM (test code = MAG) 2.0 MG/DL 1.8-2.4 N CBC W/AUTO [id number] 14:33:00* Test Item Value Reference Range Interpretation [...] = NRBC#) 0.0 K/mm3 0.0-0.1 N HCG [id number] 08:36:00* Test Item Value Reference Range Interpretation Comme nts HCG SERUM (test code = HCG) 4 mi-IU/ML 0-6 N COMPREHENSIVE METABOLIC [id number] 04:30:00* Test Item Value Reference Range Interpretation [...] ALKP) 233 Unit/L 50-136 H COMPREHENSIVE METABOLIC [id number] 05:00:00* Test Item Value Reference Range Interpretation [...] ALKP) 277 Unit/L 50-136 H CBC W/AUTO [id number] 04:46:00* Test Item Value Reference Range Interpretation [...] NRBC#) 0.0 K/mm3 0.0-0.1 N CBC W/AUTO [id number] 04:37:00* Test Item Value Reference Range Interpretation [...] NRBC#) 0.0 K/mm3 0.0-0.1 N COMPREHENSIVE METABOLIC [id number] 04:49:00* Test Item Value Reference Range Interpretation [...] = ALKP) 220 Unit/L 50-136 H PROTHROMBIN [id number] 04:19:00* Test Item Value Reference Range Interpretation [...] Infarction (to prevent recurrent infarct). THROMBOPLASTIN TIME [id number] 04:19:00* Test Item Value Reference Range Interpretation Comme nts THROMBOPLASTIN TIME PARTIAL (test code = PTT) 32.2 SECONDS 26-35 N CBC W/AUTO [id number] 04:12:00* Test Item Value Reference Range Interpretation [...] K/mm3 0.0-0.[address] Abdomen pelvis w ptxnyibx1915-22-01 23:25:16EXAM: CT abdomen pelvis with contrast HISTORY: [...] surgical intervention. T11 superior endplate chronic appearingmild compression.[facility]. Metabolic Panel (70189)2024-06-29 21:25:16* Test Item Value Reference Range Interpretation Comme nts NA (test code = 2955938536) 132 mmol/L 135-145 L K (test code = 0794008116) 4.4 mmol/L 3.5-5.0 CL (test code = 5789129485) 98 mmol/L 98-108 CO2 TOTAL (test code = 4956108507) 27 mmol/L 23-31 AGAP (test code = 2508897214) 7 2-16 BUN (test code = 4857960166) 28 mg/dL 7-23 H GLUCOSE (test code = 6374455040) 103 mg/dL 70-110 CREATININE (test code = 2160-0) 0.63 mg/dL 0.50-1.04 TOTAL BILI (test code = 5294716159) 0.7 mg/dL 0.1-1.1 CALCIUM (test code = 4839316364) 8.9 mg/dL 8.6-10.6 T PROTEIN (test code = 7727047195) 7.8 g/dL 6.3-8.2 ALBUMIN (test code = 8862508747) 4.1 g/dL 3.5-5.0 ALK PHOS (test code = 1516967875) 284 U/L 34-122 H ALTv (test code = 1742-6) 110 U/L 5-35 H AST(SGOT) (test code = 9947912046) 68 U/L 13-40 H eGFR (test code = 10476-2) 108.9 mL/min/1.73m2 CKD-EPI eGFR (2020). Assuming creatinine has been stable day-to-day for at least three months, the eGFR indicates Category G1 (>= 90 mL/min/1.73 m2) Lab Interpretation (test code = 90679-0) [facility] 21:25:16* Test Item Value Reference Range Interpretation Comme nts LIPASE (test code = 2374323996) 122 U/L 0-220 Lab Interpretation (test cod e = 24006-0) Normal [facility] Center[facility] with [id number] 21:11:16* Test Item Value Reference Range Interpretation [...] 33.3 g/dL 31.6-35.1 RDW-SD (test code = 23311-0) 43.7 fL 39.0-49.9 RDW-CV (test code = 788-0) 13.5 % 12.0-15.5 PLT (test code = 777-3) 312 166-358 MPV (test code = 82298-0) 9.6 fL 9.5-12.9 NRBC/100 WBC (test code = 7400889555) 0.0 0.0-10.0 NRBC x10^3 (test code = 4403615426) See_Comment [Automated message] The system which generated this result transmitted reference range: 10*3/?L. The reference range was not used to interpret this result as normal/abnormal. GRAN MAT (NEUT) % (test code = 770-8) 86.1 % IMM GRAN % (test code = 7942963296) 0.40 % LYMPH % (test code = 736-9) 5.2 % MONO % (test code = 5905-5) 7.4 % EOS % (test code = 713-8) 0.6 % BASO % (test code = 706-2) 0.3 % GRAN MAT x10^3(ANC) (test code = 0191605296) 13.44 10*3/uL 1.88-7.09 H IMM GRAN x10^3 (test code = 9736142661) 0.06 10*3/uL 0.00-0.06 LYMPH x10^3 (test code = 731-0) 0.81 10*3/uL 1.32-3.29 L MONO x10^3 (test code = 742-7) 1.15 10*3/uL 0.33-0.92 H EOS x10^3 (test code = 711-2) 0.09 10*3/uL 0.03-0.39 BASO x10^3 (test code = 704-7) 0.05 10*3/uL 0.01-0.07 Lab Interpretation (test code = 40780-9) Abnormal [facility]2025-[facility]-23 15:40:00* Test Item Value Reference Range Interpretation Comme nts SURGICAL (test code = SR) -----RUN DATE: 06/26/24 [facility] LAB PAGE 1 RUN TIME: 1540 Specimen Inquiry RUN USER: INTERFACE -----PATIENT: BRICE DELATORRE LOC: PennySRG U #: [id number] AGE/SX: 48/F ROOM: RE06/23/24[facility] DR: Saulo Montenegro MD : 73 BED: DIS: STATUS: DIANDRA MAN TLOC: ----- SPEC #: [id number] RECD: 06/24/24 STATUS: JUNIOR JENKINS #: [id number] GISELE: 06/23/241305 [facility] DR: Saulo Montenegro MD ENTERED: 06/24/24 TYPE: SURGICAL OT DR: ORDERED: [id number], ANATOMIC SPEC, SPECIMEN TRACK PROCEDURES: 15080 (06/26/24) SPECIMEN TRACK (06/24/24) TISSUES: A. UTERUS - [...] CONTINUED ON NEXT PAGE -----RUN DATE: 06/26/24 [facility] PAGE 2 RUN TIME: 1540 Specimen Inquiry RUN USER: INTERFACE -----SPEC #: [id number] PATIENT: BRICE DELATORRE #[id number] (Continued) GROSS DESCRIPTION (Continued) A5 additional anterior endomyometriumA6 uterine wall noduleA7 posterior reflectionA8-A10 section of left ovarian cyst A11 left fallopian tube cut surface with entire bisected fimbriated endA12 right fallopian tube cut surface with entire bisected fimbriated end Technical tissue processing and slide preparation performed at [facility],[id number] , [place] [address] MICROSCOPIC DESCRIPTION Microscopic examination is performed and the findings are incorporated into the finaldiagnosis. Please see diagnosis for findings. Signed SIGNATURE ON FILE Dany Quintero 06/26/24 1540 ----- END OF REPORT URINALYSIS [id number] 14:20:00* Test Item Value Reference Range Interpretation Comme [facility] UA GLUCOSE DIPSTICK (test co de = [...] NEGATIVE Urine Specimen Type: Clean CatchHCG SERUM [id number] 14:08:00* Test Item Value Reference Range Interpretation Comme [facility] HCG SERUM QUAL (test code = HCGQL) SERUM NEGATIVE SCREEN NEGATIVE PROTHROMBIN [id number] 13:57:00* Test Item Value Reference Range Interpretation Comme [facility] PT PATIENT (test code = PTP) [...] Infarction (to prevent recurrent infarct). THROMBOPLASTIN TIME [id number] 13:57:00* Test Item Value Reference Range Interpretation Comme nts THROMBOPLASTIN TIME PARTIAL (test code = PTT) 35.7 SECONDS 26-35 H CBC W/O [id number] 13:51:00* Test Item Value Reference Range Interpretation [...] fL 7.0-10.5 N POCT Urinalysis W Specific Urcbgjw1700-14-60 22:16:00* Test Item Value Reference Range Interpretation [...] U APPEAR (test code = 3267) hazy [facility] Pathology biopsy [id number] 00:00:00Clinical InformationPathologistReport NotesA SourceA Gross DescriptionA DiagnosisB SourceB Gross DescriptionB DiagnosisPrivia MedicalUS OVARY TORSION 2024-03-26 03:31:57EXAM: US OVARY TORSION HISTORY: 48 years-old Female; Provided indication: r/o torsion, L pelvicpain. LMP = not providedPregnancy test = Negative. TECHNIQUE: Transabdominal and transvaginal ultrasound imaging and colorDoppler evaluation of the pelvis was performed. Spectral Doppler evaluationof theovaries was performed. [facility] COMPARISON: Same day CT abdomen pelvis. Pelvic [...] color Doppler. Cul-de-sac: No free fluid is present.[facility] W CONTRAST 2024-03-26 [...] is normal. The bones and soft tissues unremarkable.[facility] METABOLIC PANEL (NA, K, CL, CO2, GLUCOSE, BUN, CREATININE, CA)2024-03-26 01:20:23* Test Item Value Reference Range Interpretation Comme nts NA (test code = 3495163056) 136 mmol/L 135-145 K (test code = 6467964326) 4.0 mmol/L 3.5-5.0 CL (test code = 6646809066) 104 mmol/L 98-108 CO2 TOTAL (test code = 3521171297) 24 mmol/L 23-31 AGAP (test code = 1020060303) 8 2-16 BUN (test code = 0826288037) 18 mg/dL 7-23 GLUCOSE (test code = 3571617292) 92 mg/dL 70-110 CREATININE (test code = 2160-0) 0.72 mg/dL 0.50-1.04 CALCIUM (test code = 8421487619) 8.8 mg/dL 8.6-10.6 eGFR (test code = 98153-3) 102.6 mL/min/1.73m2 CKD-EPI eGFR (20 21). Assuming creatinine has been stable day-to-day for at least three months, the eGFR indicates Category G1 (>= 90 mL/min/1.73 m2) [facility] WITH [id number] 01:06:53* Test Item Value Reference Range Interpretation [...] 32.9 g/dL 31.6-35.1 RDW-SD (test code = 50418-9) 42.9 fL 39.0-49.9 RDW-CV (test code = 788-0) 12.3 % 12.0-15.5 PLT (test code = 777-3) 303 166-358 MPV (test code = 87565-4) 9.7 fL 9.5-12.9 NRBC/100 WBC (test code = 4372100978) 0.0 0.0-10.0 NRBC x10^3 (test code = 7289203595) See_Comment [Automated me ssage] The system which generated this result transmitted reference range: 10*3/?L. The reference range was not used to interpret this result as normal/abnormal. GRAN MAT (NEUT) % (test code = 770-8) 65.4 % IMM GRAN % (test code = 0493989810) 0.30 % LYMPH % (test code = 736-9) 23.5 % MONO % (test code = 5905-5) 8.0 % EOS % (test code = 713-8) 1.9 % BASO % (test code = 706-2) 0.9 % GRAN MAT x10^3(ANC) (test code = 0002137815) 4.50 10*3/uL 1.88-7.09 IMM GRAN x10^3 (test code = 9545904355) 0.00-0.06 LYMPH x10^3 (test code = 731-0) 1.62 10*3/uL 1.32-3.29 MONO x10^3 (test code = 742-7) 0.55 10*3/uL 0.33-0.92 EOS x10^3 (test code = 711-2) 0.13 10*3/uL 0.03-0.39 BASO x10^3 (test code = 704-7) 0.06 10*3/uL 0.01-0.07 [facility]POCT [id number] 00:45:00* Test Item Value Reference Range Interpretation Comme nts POCT PREG (test code = 1605) Negative On board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 presents with Hand Pain Ringer finger to left hand injury Sarah Oneill LVN [facility]2025-05-23 00:19:21 Pt given printed and verbal [...] ambulatory without assist, in no apparent distress, [place] 898915-05-22 20:11:16 Pt arrived ambulatory without assist. Pt with her, okay to discuss medical care in front of him. Pt c/o burning in LUQ of abd and bloating Paresh Duff RNProtestant HospitalScrqxa3800-13-39 13:21:31 Chief Complaint Patient presents with Follow-up F/u left ankle pain pt states still has pain on left ankle inner part [phone] (home) Bren Almanza MA IsabelMelodie Xcvwjz0825-73-78 10:28:57 Chief Complaint Patient presents with OTHER Patient is here to follow up on multiple issues Aaron Gavin MA Aaron Gavin [facility]2025-05-02 09:46:40 Chief Complaint Patient presents with Consultation For Sleep Study, only occasional SOB. Selena Louis LVN T [facility] HollisdiogenesCynthia [place] [address]Ezceut2007-90-89 09:45:47 Chief Complaint Patient presents with Follow-up F/u on left ankle pt states ankle rolled one morning getting out of bed 3 weeks ago, pt went to ER still has pain not heeling [phone] (home) Bren Almanza MA [facility]2025-04-05 12:15:00 Patient is awake and alert, oriented x4. Speech is clear and appropriate. Respirations even and unlabored, no distress. Ambulatory with steady gait. Reviewed discharge instructions, follow-up care, and RX with patient, verbalizes understanding. Crutches given with training. T Nika Garcia [place] 307055-04-05 09:16:37 Patient states: "I got an unstable foot. I stepped down 45 minutes ago and heard a crack" Reports pain in left ankle. T Darlyn Clayton [place] 307055-03-31 11:05:44 Chief Complaint Patient presents with OTHER 6 week follow up also patient would like to talk about sleeping medication not working Aaron Gavin MA [facility] IsabelMelodie Jcujis4173-50-11 09:35:13 Chief Complaint Patient presents with Foot Pain Bilateral foot pain x 2+ years. Left is worse than right. Says hurts to put on shoes sometimes as well as walking. MONICA Michael III [facility] Robert Ezhlus9354-86-49 14:01:16 Chief Complaint Patient presents with OTHER 5 week f/u under bladder Patient complains of arthritis in her feet and knees Aaron Gavin MA [facility] IsabelMelodie Zlnxpa8600-50-98 13:41:00 [facility] ([facility]) Hospitalist Discharge Summary REPORT#:[id number] REPORT STATUS: Signed REPORT INITIALIZATION DATE:07/07/24 TIME:1340 PATIENT: BRICE DELATORRE UNIT #: [id number] ROOM/BED: [place] [address] : 74 AGE: 49 SEX: F ATTEND: [...] Started on IV antibiotic Appreciate help from SERVER PROGRAMMER Consult IR for aspiration Will obtain cultures Monitor CBC daily GI/DVT prophylaxis Advanced directive full code IR consult appreciated Status post aspiration Awaiting cultures Monitor closely Discussed with Dr. Montenegro Awaiting cultures ID consulted IV antibiotic Culture negative so far Monitor closely CT findings noted IR consult and s/p aspiration again Discussed with SERVER PROGRAMMER Pain control Monitor closely Awaiting further recommendations from IR and SERVER PROGRAMMER Patient had a repeat CT which showed [...] Home/Self Care Additional Discharge Routines: PCP Follow-Up, Reporter Anchor Follow-Up Diet: Resume Home Diet/Feeds Discharge management: greater than 30 mins Follow-up Appointments PCP follow-up: PCP: Saulo Montenegro MD PCP follow up timeframe: In 1-2 weeks Consulting provider 1: Provider 1: Saulo Montenegro MD Specialty: Gynecology Consult follow up timeframe: In 1-2 weeks at 1315 RPT #: [id number] END OF REPORT [id number] 11:02:00 [facility] ([facility]) Hospitalist Progress Note REPORT#:[id number] REPORT STATUS: Signed REPORT INITIALIZATION DATE:07/07/24 TIME:1102 PATIENT: BRICE DELATORRE UNIT #: [id number] ROOM/BED: [place] [address] : 74 AGE: 49 SEX: F ATTEND: Levon Hurley MD ADM AUTHOR: Levon Hurley MD REPT SERVICE DT/TIME: 07/07/24 1102 * ALL edits or amendments must be made on the electronic/computer document * Subjective Chief complaint: Abdominal Pain is better HPI: 48-year-old female, postop day 6 status post laparoscopic hysterectomy who was transferred from [facility] for a postoperative vaginal cuff abscess. The patient complains of pelvic pain and bilateral lower abdominal pain associated with fever, 101.3 Fahrenheit at home. She was seen at [facility] emergency department and had a CT which showed a large lobulated vaginal cuff abscess. Dr. Puckett was consulted and recommended transfer to [facility] for further management Objective General VS/I O: Vital Signs: Date Time Temp Pulse Resp B/P B/P Pulse O2 O2 Flow FiO2 Mean Ox Delivery Rate 07/07 1022 97.7 55 16 95/66 75.7 93 / 0807 97.9 68 16 99/62 74.5 94 / 0555 73 106/67 80.4 02/ 0554 63 95/56 69.2 02/ 0323 98.1 71 18 92/58 69.2 93 Room air 02/ 2333 98.1 76 18 107/69 82.0 93 Room air / 2228 73 104/67 79.5 07/06 2010 78 115/80 91.5 07/06 1935 97.7 70 17 90/64 72.8 94 Room air / 1642 97.9 74 17 112/71 84.8 96 Room air / 1250 98.1 71 16 116/77 90.2 93 [...] 4) Biweekly wt checks Dietitian name: Darlyn Thompson, MILDRED, ARIELLE Assessment completed: 07/02/24 Results Findings/Data: Laboratory Tests 07/07 07 Hematology WBC (3.5 - 11.0 K/mm3) 5.7 [...] % (Auto) (20.5 - 51.1 %) 31.6 Sibley % (Auto) (1.7 - 9.3 %) 10.9 H Eos % (Auto) (0.0 - 6.0 %) 5.6 Baso % (Auto) (0.0 - 2.0 %) 0.9 Neut # (Auto) (1.8 - 7.6 K/mm3) 2.9 Lymph # (Auto) (0.6 - 3.2 K/mm3) 1.8 Sibley # (Auto) (0.3 - 1.1 K/mm3) 0.6 [...] Report Impression - Status: SIGNED Entered: 2024 0902 IMPRESSION: Near complete resolution of the previously [...] Started on IV antibiotic Appreciate help from SERVER PROGRAMMER Consult IR for aspiration Will obtain cultures Monitor CBC daily GI/DVT prophylaxis Advanced directive full code IR consult appreciated Status post aspiration Awaiting cultures Monitor closely Discussed with Dr. Montenegro Awaiting cultures ID consulted IV antibiotic Culture negative so far Monitor closely CT findings noted IR consult and s/p aspiration again Discussed with SERVER PROGRAMMER Pain control Monitor closely Possible IR versus laparoscopic procedure in a.m. N.p.o. postmidnight Awaiting further recommendations from IR and SERVER PROGRAMMER at 1103 RPT #: [id number] END OF REPORT [id number] 11:13:00 [facility] ([facility]) Hospitalist Progress Note REPORT#:[id number] REPORT STATUS: Signed REPORT INITIALIZATION DATE:07/06/24 TIME:111 PATIENT: BRICE DELATORRE UNIT #: [id number] ROOM/BED: [place] [address] : 74 AGE: 48 SEX: F ATTEND: Levon Hurley MD ADM AUTHOR: Levon Hurley MD REPT SERVICE DT/TIME: 07/06/24 1113 * ALL edits or amendments must be made on the electronic/computer document * Subjective Chief complaint: Abdominal Pain is better HPI: 48-year-old female, postop day 6 status post laparoscopic hysterectomy who was transferred from [facility] for a postoperative vaginal cuff abscess. The patient complains of pelvic pain and bilateral lower abdominal pain associated with fever, 101.3 Fahrenheit at home. She was seen at [facility] emergency department and had a CT which showed a large lobulated vaginal cuff abscess. Dr. Puckett was consulted and recommended transfer to [facility] for further management Objective General VS/I O: [...] % (Auto) (20.5 - 51.1 %) 24.1 Sibley % (Auto) (1.7 - 9.3 %) 12.0 H Eos % (Auto) (0.0 - 6.0 %) 4.5 Baso % (Auto) (0.0 - 2.0 %) 0.8 Neut # (Auto) (1.8 - 7.6 K/mm3) 3.7 Lymph # (Auto) (0.6 - 3.2 K/mm3) 1.5 Sibley # (Auto) (0.3 - 1.1 K/mm3) 0.8 [...] Started on IV antibiotic Appreciate help from SERVER PROGRAMMER Consult IR for aspiration Will obtain cultures Monitor CBC daily GI/DVT prophylaxis Advanced directive full code IR consult appreciated Status post aspiration Awaiting cultures Monitor closely Discussed with Dr. Montenegro Awaiting cultures ID consulted IV antibiotic Culture negative so far Monitor closely CT findings noted IR consult and s/p aspiration again Discussed with SERVER PROGRAMMER Pain control Monitor closely Possible IR versus laparoscopic procedure in a.m. N.p.o. postmidnight at 1203 RPT #: [id number] END OF REPORT [id number] 11:11:00 [facility] ([facility]) Infectious Dis. Progress Note REPORT#:[id number] REPORT STATUS: Signed REPORT INITIALIZATION DATE:07/06/24 TIME:1111 PATIENT: BRICE DELATORRE UNIT #: [id number] ROOM/BED: [place] [address] : 74 AGE: 48 SEX: F ATTEND: [...] B/P 112/71 07/06 1642 B/P Mean 84.8 02/02 1642 O2 Delivery Room air 07/06 1642 [...] clubbing, no cyanosis Musculoskeletal: no joint swelling Neuro/MECHANICAL ENGINEERING LECTURER: alert, oriented X 3, normal speech Skin: [...] 10 days from most recent drainage on 1/31, with repeat imaging to assess response. If not sufficiently improved, may need more invasive means of drainage, 4. Monitor CBC. 5. Monitor kidney function. 6. Follow LFTs. 7. F/u with RELOCATION SERVICES SPECIALIST. 8. Plan discussed with pt. Thank you for this consult. Will continue to follow at 1707 RPT #: [id number] END OF REPORT [id number] 11:31:[id number] [facility] [address] [place] [address] PATIENT NAME: BRICE DELATORRE ADMIT DATE: 06/29/24 ACCOUNT NO: [id number] ROOM NO: S206 AGE: 49 REPORT TYPE: PROGRESS NOTE SEX: F ADMITTING PHYSICIAN: Levon Hurley MD ATTENDING PHYSICIAN: Levon Hurley MD DATE: 07/05/2024 PROGRESS NOTE Hospital day #7. The patient admitted for pelvic abscess, status post robotic hysterectomy. SUBJECTIVE FINDINGS: Complaining of right lower quadrant pain. 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, bladder [...] Dictated: 07/05/2024 11:31:03 Date Transcribed: 07/05/2024 13:18:34 [facility] Receipt ID: [id number] Authenticated by Saulo Montenegro MD On 2024 06:41:05 PM at 0641 PATIENT NAME: BRICE EDLATORRE 10:22:00 [facility] Hospitalist Progress Note REPORT#:[id number] REPORT STATUS: Signed REPORT INITIALIZATION DATE:07/05/24 TIME:102 PATIENT: BRICE DELATORRE UNIT #: [id number] ROOM/BED: [place] [address] : 74 AGE: 48 SEX: F ATTEND: Levon Hurley MD ADM AUTHOR: Levon Hurley MD REPT SERVICE DT/TIME: 07/05/24 1022 * ALL edits or amendments must be made on the electronic/computer document * Subjective Chief complaint: Abdominal Pain is better HPI: 48-year-old female, postop day 6 status post laparoscopic hysterectomy who was transferred from [facility] for a postoperative vaginal cuff abscess. The patient complains of pelvic pain and bilateral lower abdominal pain associated with fever, 101.3 Fahrenheit at home. She was seen at [facility] emergency department and had a CT which showed a large lobulated vaginal cuff abscess. Dr. Puckett was consulted and recommended transfer to [facility] for further management Objective General VS/I O: [...] (Auto) (20.5 - 51.1 %) 13.0 L Sibley % (Auto) (1.7 - 9.3 %) 7.4 Eos % (Auto) (0.0 - 6.0 %) 1.7 Baso % (Auto) (0.0 - 2.0 %) 0.4 Neut # (Auto) (1.8 - 7.6 K/mm3) 7.9 H Lymph # (Auto) (0.6 - 3.2 K/mm3) 1.3 Sibley # (Auto) (0.3 - 1.1 K/mm3) 0.8 [...] Started on IV antibiotic Appreciate help from SERVER PROGRAMMER Consult IR for aspiration Will obtain cultures Monitor CBC daily GI/DVT prophylaxis Advanced directive full code IR consult appreciated Status post aspiration Awaiting cultures Monitor closely Discussed with Dr. Montenegro Awaiting cultures ID consulted IV antibiotic Culture negative so far Monitor closely CT findings noted IR consult and s/p aspiration again Discussed with SERVER PROGRAMMER Pain control Monitor closely at 1023 RPT #: [id number] END OF REPORT [id number] 13:34:00 [facility] ([facility]) Post Anesthesia Evaluation REPORT#:[id number] REPORT STATUS: Signed REPORT INITIALIZATION DATE:07/04/24 TIME:1334 PATIENT: BRICE DELATORRE UNIT #: [id number] ROOM/BED: [place] [address] : 74 AGE: 48 SEX: F ATTEND: [...] Anesthesia complications: no at 1335 RPT #: [id number] END OF REPORT [id number] 11:13:00 [facility] ([facility]) Hospitalist Progress Note REPORT#:[id number] REPORT STATUS: Signed REPORT INITIALIZATION DATE:07/04/24 TIME:1113 PATIENT: BRICE DELATORRE UNIT #: [id number] ROOM/BED: [place] [address] : 74 AGE: 48 SEX: F ATTEND: Levon Hurley MD ADM AUTHOR: Levon Hurley MD REPT SERVICE DT/TIME: 07/04/24 1113 * ALL edits or amendments must be made on the electronic/computer document * Subjective Chief complaint: Abdominal Pain is better HPI: 48-year-old female, postop day 6 status post laparoscopic hysterectomy who was transferred from [facility] for a postoperative vaginal cuff abscess. The patient complains of pelvic pain and bilateral lower abdominal pain associated with fever, 101.3 Fahrenheit at home. She was seen at [facility] emergency department and had a CT which showed a large lobulated vaginal cuff abscess. Dr. Puckett was consulted and recommended transfer to [facility] for further management Objective General VS/I O: [...] Started on IV antibiotic Appreciate help from SERVER PROGRAMMER Consult IR for aspiration Will obtain cultures Monitor CBC daily GI/DVT prophylaxis Advanced directive full code IR consult appreciated Status post aspiration Awaiting cultures Monitor closely Discussed with Dr. Kadiyala Awaiting cultures ID consulted IV antibiotic Culture negative so far Monitor closely CT findings noted Will get a repeat IR consult and possible aspiration again Discussed with SERVER PROGRAMMER Pain control Monitor closely at 1344 RPT #: [id number] END OF REPORT [id number] 12:19:00 [facility]) Hospitalist Progress Note REPORT#:[id number] REPORT STATUS: Signed REPORT INITIALIZATION DATE:07/03/24 TIME:1219 PATIENT: BRICE DELATORRE UNIT #: [id number] ROOM/BED: [place] [address] : 74 AGE: 48 SEX: F ATTEND: Levon Hurley MD ADM AUTHOR: Levon Hurley MD REPT SERVICE DT/TIME: 07/03/24 1219 * ALL edits or amendments must be made on the electronic/computer document * Subjective Chief complaint: Abdominal Pain is better HPI: 48-year-old female, postop day 6 status post laparoscopic hysterectomy who was transferred from [facility] for a postoperative vaginal cuff abscess. The patient complains of pelvic pain and bilateral lower abdominal pain associated with fever, 101.3 Fahrenheit at home. She was seen at [facility] emergency department and had a CT which showed a large lobulated vaginal cuff abscess. Dr. Puckett was consulted and recommended transfer to [facility] for further management Objective General VS/I O: [...] 2.2 RATIO) 0.5 L Laboratory Tests 07/03 432 Hematology WBC (3.5 - 11.0 K/mm3) 8.7 [...] (Auto) (20.5 - 51.1 %) 13.9 L Sibley % (Auto) (1.7 - 9.3 %) 10.0 H Eos % (Auto) (0.0 - 6.0 %) 1.7 Baso % (Auto) (0.0 - 2.0 %) 0.2 Neut # (Auto) (1.8 - 7.6 K/mm3) 6.4 Lymph # (Auto) (0.6 - 3.2 K/mm3) 1.2 Sibley # (Auto) (0.3 - 1.1 K/mm3) 0.9 [...] Started on IV antibiotic Appreciate help from SERVER PROGRAMMER Consult IR for aspiration Will obtain cultures Monitor CBC daily GI/DVT prophylaxis Advanced directive full code IR consult appreciated Status post aspiration Awaiting cultures Monitor closely Discussed with Dr. Montenegro Awaiting cultures ID consulted IV antibiotic Culture negative so far Monitor closely Possible DC in AM at 1222 RPT #: [id number] END OF REPORT [id number] 11:03:00 [facility] ([facility]) Infect Disease Consult Note REPORT#:[id number] REPORT STATUS: Signed REPORT INITIALIZATION DATE:07/03/24 TIME:110 PATIENT: BRICE DELATORRE UNIT #: [id number] ROOM/BED: [place] [address] : 74 AGE: 48 SEX: F ATTEND: Levon Hurley MD ADM AUTHOR: Phillip Palencia MD REPT SERVICE DT/TIME: 07/03/24 1103 * ALL edits or amendments must be made on the electronic/computer document * History of Present Illness Chief complaint: Pelvic abscess HPI: 48-year-old female, s/p recent laparoscopic hysterectomy who was transferred from [facility] for a vaginal abscess. The patient developed worsening pelvic pain associated with fever. She was seen at [facility] ED and CT showed a large lobulated [...] clubbing, no cyanosis Musculoskeletal: no joint swelling Neuro/MECHANICAL ENGINEERING LECTURER: alert, oriented X 3, normal speech Skin: [...] function. 6. Follow LFTs. 7. F/u with RELOCATION SERVICES SPECIALIST. 8. Plan discussed with pt. Thank you for this consult. at 1333 RPT #: [id number] END OF REPORT [id number] 12:48:00 [facility] ([facility]) Hospitalist Progress Note REPORT#:[id number] REPORT STATUS: Signed REPORT INITIALIZATION DATE:07/02/24 TIME:1247 PATIENT: BRICE DELATORRE UNIT #: [id number] ROOM/BED: [place] [address] : 74 AGE: 48 SEX: F ATTEND: Levon Hurley MD ADM AUTHOR: Levon Hurley MD REPT SERVICE DT/TIME: 07/02/24 1248 * ALL edits or amendments must be made on the electronic/computer document * Subjective Chief complaint: Abdominal Pain HPI: 48-year-old female, postop day 6 status post laparoscopic hysterectomy who was transferred from [facility] for a postoperative vaginal cuff abscess. The patient complains of pelvic pain and bilateral lower abdominal pain associated with fever, 101.3 Fahrenheit at home. She was seen at [facility] emergency department and had a CT which showed a large lobulated vaginal cuff abscess. Dr. Puckett was consulted and recommended transfer to [facility] for further management Objective General VS/I O: [...] Report Impression - Status: SIGNED Entered: 07/01/2024 1346 IMPRESSION: Pelvic abscess drainage catheter placement under [...] Started on IV antibiotic Appreciate help from SERVER PROGRAMMER Consult IR for aspiration Will obtain cultures Monitor CBC daily GI/DVT prophylaxis Advanced directive full code IR consult appreciated Status post aspiration Awaiting cultures Monitor closely Discussed with Dr. Montenegro Awaiting cultures at 1249 RPT #: [id number] END OF REPORT [id number] 10:03:00 [facility]) Hospitalist Progress Note REPORT#:[id number] REPORT STATUS: Signed REPORT INITIALIZATION DATE:07/01/24 TIME:1003 PATIENT: BRICE DELATORRE UNIT #: [id number] ROOM/BED: [place] [address] : 74 AGE: 48 SEX: F ATTEND: Levon Hurley MD ADM AUTHOR: Levon Hurley MD REPT SERVICE DT/TIME: 07/01/24 1003 * ALL edits or amendments must be made on the electronic/computer document * Subjective Chief complaint: Abdominal Pain HPI: 48-year-old female, postop day 6 status post laparoscopic hysterectomy who was transferred from [facility] for a postoperative vaginal cuff abscess. The patient complains of pelvic pain and bilateral lower abdominal pain associated with fever, 101.3 Fahrenheit at home. She was seen at [facility] emergency department and had a CT which showed a large lobulated vaginal cuff abscess. Dr. Puckett was consulted and recommended transfer to [facility] for further management Objective General VS/I O: [...] Report Impression - Status: SIGNED Entered: 07/01/2024 9564 IMPRESSION: Pelvic abscess drainage catheter placement under [...] Started on IV antibiotic Appreciate help from SERVER PROGRAMMER Consult IR for aspiration Will obtain cultures Monitor CBC daily GI/DVT prophylaxis Advanced directive full code IR consult appreciated Status post aspiration Awaiting cultures Monitor closely at 1248 RPT #: [id number] END OF REPORT [id number] 19:19:[id number] [facility] [id number] [place] [address] PATIENT NAME: BRICE DELATORRE ADMIT DATE: 06/29/24 ACCOUNT NO: [id number] ROOM NO: L.S206 AGE: 49 REPORT TYPE: CONSULTATION SEX: F ADMITTING PHYSICIAN: Levon Hurley MD ATTENDING PHYSICIAN: Levon Hurley MD CONSULTATION DATE: 06/30/2024 REASON FOR CONSULTATION: A 1-week postop with a pelvic collection suspicious for a pelvic abscess, leukocytosis, transferred from [facility] in [place] for these diagnoses. HISTORY OF PRESENT ILLNESS: The patient is a 48-year-old postop day #8 today with complaints of pelvic pain and a fever of 102 that took her to the emergency room yesterday. The patient had reported nausea and was called in [facility] on Sunday at the close of office [...] Sunday, she went to the hospital at [place], and was diagnosed with a pelvic collection on CT scan and a white count of 15.6. After I received a call from the transfer center at [facility], I was connected with the ER attending at [facility]. We discussed the patient's case and I requested a transfer to [facility] in order for her to continue under [...] hours since yesterday, which was started at [facility] and continued to clinically improve with her [...] Date Transcribed: 06/30/2024 23:07:02 HORACE/VERONIKA/MARLENY Receipt ID: [id number] Authenticated by Saulo Montenegro MD On 2024 06:40:54 PM at 0640 PATIENT NAME: BRICE DELATORRE 10:42:00 [facility] Hospitalist Progress Note REPORT#:[id number] REPORT STATUS: Signed REPORT INITIALIZATION DATE:06/30/24 TIME:1041 PATIENT: BRICE DELATORRE UNIT #: [id number] ROOM/BED: [place] [address] : 74 AGE: 48 SEX: F ATTEND: Levon Hurley MD ADM AUTHOR: Levon Hurley MD REPT SERVICE DT/TIME: 06/30/24 1042 * ALL edits or amendments must be made on the electronic/computer document * Subjective Chief complaint: Abdominal Pain HPI: 48-year-old female, postop day 6 status post laparoscopic hysterectomy who was transferred from [facility] for a postoperative vaginal cuff abscess. The patient complains of pelvic pain and bilateral lower abdominal pain associated with fever, 101.3 Fahrenheit at home. She was seen at [facility] emergency department and had a CT which showed a large lobulated vaginal cuff abscess. Dr. Puckett was consulted and recommended transfer to [facility] for further management Objective General VS/I O: Vital Signs: Date Time Temp Pulse Resp B/P B/P Pulse O2 O2 Flow FiO2 Mean Ox Delivery Rate 06/30 0751 97.7 95 16 114/79 90.8 96 Room air 06/30 0430 93 95 06/30 0429 98.2 92 16 103/68 79.7 92 06/29 2310 98.2 82 18 115/77 89 95 06/295 89 118/70 88 92 06/29 2044 90 108/78 90 92 06/29 2035 87 98/75 84 94 06/29 2017 81 118/75 91 94 06/29 1921 98.4 80 18 114/77 89 99 Room [...] 2.2 RATIO) 0.6 L Laboratory Tests 06/30 355 Coagulation INR (0.8 - 1.2 INR Unit) 1.16 PTT ([place]) (26 - 35 SECONDS) 32.2 PT Patient/Control Mix (9.3 - 12.9 SECONDS) 12.8 Laboratory Tests 06/30 356 Hematology WBC (3.5 - 11.0 K/mm3) 13.6 [...] (Auto) (20.5 - 51.1 %) 9.3 L Sibley % (Auto) (1.7 - 9.3 %) 6.7 Eos % (Auto) (0.0 - 6.0 %) 1.0 Baso % (Auto) (0.0 - 2.0 %) 0.3 Neut # (Auto) (1.8 - 7.6 K/mm3) 11.2 H Lymph # (Auto) (0.6 - 3.2 K/mm3) 1.3 Sibley # (Auto) (0.3 - 1.1 K/mm3) 0.9 Eos # (Auto) (0.0 - 0.4 K/mm3) 0.1 Baso # (Auto) (0.0 - 0.1 K/mm3) 0.0 Abs Immat Gran (auto) (0.00 - 0.03 x10 3/uL) 0.07 H Immature Gran % (0.0 - 5.0 %) 0.5 Nucleated RBC % (0.0 - 1.0 /100WBC%) 0.0 Radiology data: Recent Impressions: RADIOLOGY - XR CHEST 1 V 06/30 6104 Report Impression - Status: SIGNED Entered: 06/30/2024 [...] Started on IV antibiotic Appreciate help from SERVER PROGRAMMER Consult IR for aspiration Will obtain cultures Monitor CBC daily GI/DVT prophylaxis Advanced directive full code at 1114 RPT #: [id number] END OF REPORT [id number] 21:46:00 [facility] Hospitalist History Physical REPORT#:[id number] REPORT STATUS: Signed REPORT INITIALIZATION DATE:06/29/24 TIME:2145 PATIENT: BRICE DELATORRE UNIT #: [id number] ROOM/BED: [place] [address] : 74 AGE: 48 SEX: F ATTEND: Levon Hurley MD ADM AUTHOR: Levon Hurley MD REPT SERVICE DT/TIME: 06/29/242145 * ALL edits or amendments must be made on the electronic/computer document * History of Present Illness HPI Chief complaint: Abdominal Pain HPI: 48-year-old female, with postop day 6 status post laparoscopic hysterectomy who was transferred from [facility] for a postoperative vaginal cuff abscess. The patient complains of pelvic pain and bilateral lower abdominal pain associated with fever, 101.3 Fahrenheit at home. She was seen at [facility] emergency department and had a CT which showed a large lobulated vaginal cuff abscess. Dr. Puckett was consulted and recommended transfer to [facility] for further management Patient was assessed in [...] Started on IV antibiotic Appreciate help from SERVER PROGRAMMER Consult IR for aspiration Will obtain cultures Monitor CBC daily GI/DVT prophylaxis Advanced directive full code at 1116 RPT #: [id number] END OF REPORT [id number] 19:33:00 [facility] ([facility]) EMERGENCY PROVIDER REPORT REPORT#:[id number] REPORT STATUS: Signed DATE:06/29/24 TIME:1932 PATIENT: BRICE DELATORRE UNIT #: [id number] ROOM/BED: [place] [address] : 74 AGE: 48 SEX: F PCP [...] post laparoscopic hysterectomy who was transferred from [facility] for a postoperative vaginal cuff abscess. The patient complains of pelvic pain and bilateral lower abdominal pain associated with fever, 101.3 Fahrenheit at home. She was seen at [facility] emergency department and had a CT which showed a large lobulated vaginal cuff abscess. Dr. Puckett was consulted and recommended transfer to [facility] for further management External records reviewed from transferring hospital [facility]: Patient received morphine 4 mg x 2 [...] post laparoscopic hysterectomy who was transferred from [facility] for a postoperative vaginal cuff abscess I spoke with the patient's home supervisor, Dr. Montenegro, who recommended admission for IR [...] Hospitalize Hosp Physician Name Levon Hurley MD Hosp Physician Hospitalist Request Time 1957 Request Date 06/29/24 )( Accepts Hospitalization Yes )( Reason for Hospitalization drainage of vaginal cuff abscess, sepsis )( Accepted Time 1999 )( Accepted Date 06/29/24 Call Information will see patient at [facility] #: [id number] END OF [id number] 18:36:22 Patient transferred to [facility] ED for diagnosis of post surgical abscess Patient agrees to transfer/admit plan and verbalized understanding of plan of care, family aware of plan Patient awake alert, oriented, resp reg unlabored, skin w/d PIV patent, no s/s infiltration noted, No adverse reaction to medications given while in ED. Report given to [facility] EMS personnel Report given to physician at [facility] HER PACKING Adrian Peñaloza [facility] CenterLlydtw1802-04-82 14:14:53 Pt had hysterectomy a week ago with Dr Montenegro. This morning pt had fever, pelvic pressure. She took codeine, 600mg ibuprofen and is afebrile on arrival to ED. Appears anxious. HER PACKING Nika Garcia [facility] CenterHfnmvp3381-69-42 14:04:00 [facility] Emergency Department Note Patient Name: Brice Delatorre Date of : 1975 48 year old female Treatment Room: [facility] Primary Care Physician: Darlyn Molina [...] pain following recent hysterectomy (on Sunday06/23/24 in [place]). Patient reports pain since the surgery but [...] 0.01 - 0.07 10*3/uL COMP. METABOLIC PANEL (38473) - Abnormal NA 132 (*) 135 - [...] contrast Cbc with Diff Comp. Metabolic Panel (02995) Lipase Orders Placed This Encounter Medications morpHINE [...] 06/23/24. Patient's physician is Dr. Montenegro in [place] at [facility] [address] [facility] Radiology called to inform that CT abdomen/pelvis showed pelvic wall abscess. Patient initiated on zosyn. Consulted import customs clearing agent, who reviewed imaging. Request made to have patient transferred to facility where surgery was done so that she can be treated there. I spoke with patient and patient also wanting to be transferred to be treated.Transfer request made and spoke with Dr. Montenegro who accepted the patient for transfer. Plan for transfer to [facility] for further care and management by physician [...] with meals as needed for Alternate with [place] for pain scale 1-3. ONDANSETRON 4 MG [...] Electronically signed by: Yuly Saucedo MD 06/29/241739 [facility] - [id number] 19:15:00 [facility] ([facility]) Brief Op Note REPORT#:[id number] REPORT STATUS: Signed REPORT INITIALIZATION DATE:06/23/24 TIME:1914 PATIENT: BRICE DELATORRE UNIT #: [id number] ROOM/BED: : 74 AGE: 48 SEX: F [...] Left oophorectomy, right ovariopexy Primary Surgeon: amber Fingerprint Expert(s): angela peter Anesthesia: general anesthesia Findings: minimal endo, holland master sinus in para rectal spaces, right ovariopexy Complications: none Estimated blood loss in ml's: 50 Specimens removed/altered: left ovary with cyst, jonathan tubes and uterus Urine output: 100 Approach: laparoscopic, leon Wound class: clean/contaminated Disposition: plan to D/C home Counts: Sponge count: correct Instrument count: correct Needle count: correct at 1918 RPT #: [id number] END OF REPORT [id number] 19:04:00 [facility] ([facility]) Brief Op Note REPORT#:[id number] REPORT STATUS: Signed REPORT INITIALIZATION DATE:06/23/24 TIME:1903 PATIENT: BRICE DELATORRE UNIT #: [id number] ROOM/BED: : 74 AGE: 48 SEX: F [...] rectosigmoid by Dr Mcdaniel) Primary Surgeon: amber Fingerprint Expert(s): angela Peter and Harry Valle Anesthesia: general [...] must be discarded at 1915 RPT #: [id number] END OF REPORT [id number] 14:43:[id number] [address] PATIENT NAME: BRICE DELATORRE ADMIT DATE: 06/23/24 ACCOUNT NO: [id number] ROOM NO: AGE: 49 REPORT TYPE: OPERATIVE [...] and right ovariopexy. SURGEON: Saulo Montenegro MD BUSINESS OBJECTS: Angela Peter. ANESTHESIA: General endotracheal. ESTIMATED BLOOD [...] and 2 simple angle sutures and three gyfimi-et-bfsjy in the middle, and then 2-0 V-Loc [...] was grasped single tooth tenaculum, dilated to 16-Czech. A 3.5 cm cervical cup was introduced [...] and handed over for retrieval by my sales assistant. Anterior and posterior peritoneal flaps were [...] Vicryl suture at both ends, then three sggxuf-ju-umagh in the middle using full thickness closure [...] Date Transcribed: 06/23/2024 20:29:57 HORACE/TOBY Receipt ID: [id number] Authenticated by Saulo Montenegro MD On 2024 06:40:07 PM at 0640 PATIENT NAME: BRICE DELATORRE 14:32:00 [facility] ([facility]) Post Anesthesia Evaluation REPORT#:[id number] REPORT STATUS: Signed REPORT INITIALIZATION DATE:06/23/24 TIME:1431 PATIENT: BRICE DELATORRE UNIT #: [id number] ROOM/BED: : 74 AGE: 48 SEX: F [...] Anesthesia complications: no at 1433 RPT #: [id number] END OF REPORT [id number] 10:32:43 Called patient to let them know they will need to come into clinic and sign a medical release form to have medical records sent to Paresh Curiel NP. Patient stated he will be in today. NE LawsonGreen Cross HospitalIcnlhz3314-87-90 09:25:04 Please facilitate request for xrays from [facility]. Thank You NE Cooper [facility] CenterFwyion9974-66-82 14:50:30 Brice Delatorre is a 48 year old female Alba with [facility] called stating that pt states that she got x-ray done at [facility] shortly after visit (pt did not provide specific date). She states that clinic is needing to request records from [facility]. Please advise. NE OdomProtestant HospitalZggqwr1597-40-18 14:26:20 Spoke with Alba with [facility] and notified her that the patient has not had the chest Xray done and can not be cleared until completed. Alba stated that she would notifiy the patient. HER PACKING Ailyn Cooper [facility] CenterBnnpex2003-27-42 16:20:50 Attempt to contact [facility] to inform them pt has not been cleared. Chest x ray must be completed. [facility] 15:54:30 Chest x ray is part of the work up Pt smokes so its important its done [facility]2024-12-20 15:40:38 Please advise. Chest x ray still not completed. [facility]2024-[facility]-19 10:55:48 Brice Delatorre is a 48 year old female Alba with [facility] called to follow up on surgery clearance.Pt surgery is 06/23/2024. Please advise. HER PACKING Ashley OdomProtestant HospitalOlqclj3903-44-01 09:55:00 Regarding: weaness in arms and legs, shaky, shortness of breath, upon taking antibiotic x 04/28 ----- Message from Patient Reception Specialist sent at 04/30/2024 9:53 AM WEIGHER PACKING ----- Weakness in arms and legs, shaky, shortness of breath, started upon taking antibiotic (sulfamethoxazole-trimethoprim) (04/28) NE Hall [facility] CenterAiwkrd6684-87-96 09:55:00 Adult Triage Assessment Last Clinic Visit: [...] AND [3] present now Protocols used: Neurologic Anafddc-IQEHF-ZH [facility]2024-11-27 09:55:00 Have her stop bactrium will change antibiotics. The culture report is not yet in . Er precautions [facility]2024-11-27 09:55:00 Addended by: PARESH CURIEL on: 04/30/2024 05:03 PM Modules accepted: Orders [facility]2024-11-27 09:55:00 Notified patient that Paresh Curiel sent in new prescription and to discontinue the bactrim. ER precautions given for worsening of symptoms. Patient verbalizes understanding and states symptoms penny already getting a lot better. HER PACKING Lurdes Dwyer RNProtestant HospitalLgmpwv1596-28-93 16:45:00 No lab drawn patient stated she was not fasting and will be back tomorrow.Camille Michaud 04/28/2024 4:04 PM NE MichaudProtestant HospitalCdeyuj1364-42-30 09:20:08 Received records from [facility]. Placed in Providers box. NE JenningsProtestant HospitalHfskln0103-01-31 10:00:56 Left voicemail for Alba. This patient is not a established in our office. NE Diop MAProtestant HospitalJkesxf7923-14-34 09:50:42 Alba russell/ Dr. Monte Office states they faxed a medical clearance to the office on 2023. The pt is needing medical clearance for a hysterectomy. Alba Info: CB#---[phone]/ OPT: 2 FAX#---[phone] Please Advise. HER PACKING Viktoria MoellerGreen Cross HospitalWbctfs9485-40-00 18:25:30 Patient dc home. Follow up with pcp. [facility] HospitalVzpyts3601-89-08 13:16:14 Patient requesting to be swabbed for flu and covid. She has been sick x 2 days with nausea, headache, and diarrhea. Mani Moss [facility] CenterUkklvu9630-97-98 23:05:22 Pt given printed and verbal discharge [...] no apparent distress, Scot Vargas [facility] CenterTmftvj1532-51-24 19:19:09 Pt presents to ED with c/o steady lower left abdominal pain. Pt rates it as 02/11. Pt also c/o 3 weeks of vaginal bleeding. Pt had hysteroscopy last and has continued to have vaginal bleeding. Pt did not notify ob/gym of bleeding. Pt states she is bleeding like a normal menstrual cycle but blood is dark. Gabapentin taken 2-3 hrs ESTATE ATTORNEY Anya Gonzalez [facility] CenterStfhvt7228-08-71 22:17:49 Pt given printed and verbal discharge [...] with steady gait, in no apparent distress, [place] [address]-08-16 17:18:39 Pt came in walking on steady gait states" I have a hx of kidney stones a couple mos ago, I cannot pin point where the pain is coming from but today it is worst on my left side belly radiates to my left leg, no energy and nauseous almost everyday" Not taking any meds for her kidney stones Annetta Silva [place] 307054-07-16 12:45:00 Pt discharged with diagnosis of flank pain, renal stones, osteoarthritis of lumbar spine. Printed and verbal instructions reviewed with and given to patient. Prescriptions given x 2. Patient verbalized understanding of teaching, medication administration, and recommended follow-up. Denies questions or concerns at this time. Pt ambulatory at discharge. Appears in no apparent distress. No ataxia noted. Accompanied by self. Christine Ventura [place] [id number] 10:30:23 Patient arrived ambulatory c/o of left sided flank pain that started yesterday morning. Went to PCP and got medicine which hasn't helped. [id number] 22:44:52 Pt dc'd home ambulatory with crutches. Pt v/u of dc instructions, RICE, and follow up with pcp as needed. Makenzie Lucero [place] [id number] 20:14:40 Pt arrives ambulatory to ED reporting that she was getting out of bed aprox 2 hrs ESTATE ATTORNEY, and twisted her ankle. Reports pain 10/10 on both sides of ankle and down the left side of foot to toes. Yara Atkinson [facility] [id number] 01:35:00 Dc instructions and prescription reviewed with pt by Dr Montilla. Verbalized understanding. No reaction to meds noted or report. Gauze dressing to iv site. Aox4, rr even and unlabored on ra, skin warm and dry. Ambulatory with steady gait with all belongings accompanied by spouse to lobby. [facility] Richmond Sandoval [facility] [id number] 01:19:50 Dr Montilla at bedside [facility]2024-03-02 01:09:16 Pt resting on stretcher sleeping with spouse at bedside. RR even and unlabored on ra, skin warm and dry. No distress observed. [place] 26725-03-02 00:11:54 Pt reports not receiving ordered meds despite being pulled by previous nurse. Overrided and given by this RN per Dr Montilla [place] 26725-03-01 22:55:39 Pt resting on stretcher. Aox4, rr even and unlabored on ra, skin warm and dry. Reporting abdominal pain and discomfort. No distress observed. IV attempts x3 in triage. Pt reports she is always a difficult stick d/t prior history. US guided IV requested [place] 26725-03-01 20:35:54 Patient to Ultra sound at this time. Patient is a very hard stick. Not able to start PIV. Will have to be US guided when patient returns. NE Luna [place] 31336-03-01 20:35:51 RN attempted to obtain PIV access x 3 without success. Patient to US, NAD noted. Patient remains without IV access. Additional PIV access initiation attempts when patient returns from imaging. [facility] Dorinda Trinh [place] [id number] 20:16:28 Dr. Montilla at bedside. [place] 26725-03-01 19:37:23 Brice Delatorre is a 48 year [...] something else and it didn't help either. HER PACKING oN Felix [facility] [id number] 01:50:05 Pt given printed and verbal discharge [...] with steady gait, in no apparent distress HER PACKING Danielle Garcia [facility] [id number] 01:22:24 Waiting for IV fluids to infuse. [facility]2024-01-25 00:18:35 Summary: CT Waiting on [facility]:05[facility]17 CC: Pt reports 30 min ESTATE ATTORNEY she had extreme right sided abd pain and swelling in her stomach that lasted 15 min. She states that she was shaking. Pt was diagnosed with ovarian cyst x 1 wk ago at this facility. Pt denies vaginal bleeding. PMHx: see chart Awake, alert, oriented, resp reg unlabored, skin warm, color appropriate for race, moves all ext without difficulty, amb with steady gait HER PACKING Yara Rangel [facility] CenterBaslna2891-00-02 19:22:46 Pt given printed and verbal discharge [...] with steady gait, in no apparent distress HER PACKING Danielle Garcia [facility] [id number] 16:49:02 Brice Delatorre is a 47 year old female c/o abnormal vaginal bleeding off and for 5 months, states bleeds for a few weeks and then stops for about 1 week, then starts again, alert in no distress, skin w/d pink, oral mucosa pink moist HER PACKING Chelle Cordero [facility]
[2025-03-01] MEDS ORDERED: NA CHLORIDE 0.9% 1,000 ML ONE (17:41)
[2025-03-01] MEDS ORDERED: MORPHINE 4 MG/ML SYR ONE (17:41)
[2025-03-01] MEDS ORDERED: ONDANSETRON 4 MG/2 ML VIAL ONE (17:41)
--- NOTE | 2025-03-01 19:28 | EDPHYS ---
Physician Documentation [facility] Name: Ariana Delatorre Age: 49 yrs Sex: Female : 1975 Arrival Date: 03/01/2025 Time: 17:06 Bed 11 Private MD: ED Physician Fabiola Alberts HPI: 03/01 17:51 This 49 yrs old Female presents to ER via Ambulatory with complaints of Pain dr5 All Over. 17:51 Onset: The symptoms/episode began/occurred 5 day(s) ago. Patient is a 49-year-old dr5 female with history of insomnia and nodular thyroid coming in with continued neck pain, ear pain, throat pain and feeling weak. Patient reports that she has not seen her primary care doctor or revenue accounting manager yet. Patient states that she called the nurse at [facility] for after-hours who recommended her come to the emergency department immediately for further management.. HOME STAGER: 19:37 Not cp4 Historical: - Allergies: 17:24 Bactrim; jb4 - PMHx: 17:24 insomnia; jb4 - PSHx: 17:24 Cholecystectomy; cleft lip repair; ; Total abdominal hysterectomy; jb4 - Immunization history:: Adult Immunizations up to date. - Infectious Disease History:: Denies. - Social history:: Smoking status: Patient denies any tobacco usage or history of. ROS: 17:52 Constitutional: as per hpi dr5 Exam: 17:52 Constitutional: This is a well developed, well nourished patient who is awake, alert, dr5 and in no acute distress. Head/Face: Normocephalic, atraumatic. Eyes: Pupils equal round and reactive to light, extra-ocular motions intact. Lids and lashes normal. Conjunctiva and sclera are non-icteric and not injected. Cornea within normal limits. Periorbital areas with no swelling, redness, or edema. ENT: Nares patent. No nasal discharge, no septal abnormalities noted. Tympanic membranes are normal and external auditory canals are clear. Oropharynx with no redness, swelling, or masses, exudates, or evidence of obstruction, uvula midline. Mucous membranes moist. Neck: Trachea midline, no thyromegaly or masses palpated, and no cervical lymphadenopathy. Supple, full range of motion without nuchal rigidity, or vertebral point tenderness. No Meningismus. Chest/axilla: Normal chest wall appearance and motion. Nontender with no deformity. No lesions are appreciated. Cardiovascular: Regular rate and rhythm with a normal S1 and S2. Normal PMI, no JVD. No pulse deficits. Respiratory: Lungs have equal breath sounds bilaterally, clear to auscultation. No rales, rhonchi or wheezes noted. No increased work of breathing, no retractions or nasal flaring. Abdomen/GI: Soft, non-tender, non-distended Back: No spinal tenderness. No costovertebral tenderness. Full range of motion. Skin: Warm, dry with normal turgor. Normal color with no rashes, no lesions, and no evidence of cellulitis. MS/ Extremity: Pulses equal, no cyanosis. Neurovascular intact. Full, normal range of motion. Neuro: Awake and alert, GCS 15, oriented to person, place, time, and situation. Cranial nerves II-XII grossly intact. Motor strength 5/5 in all extremities. Sensory grossly intact. Cerebellar exam normal. Normal gait. Vital Signs: 17:21 BP 138 / 91; Pulse 94; Resp 16; Temp 97.5(TE); Pulse Ox 100% on R/A; Weight 56.25 kg jb4 (R); Height 5 ft. 2 in. (R); Pain 8/10; 19:37 BP 130 / 91; Pulse 88; Resp 16; Pulse Ox 100% ; cp4 17:21 Body Mass Index 22.68 (56.25 kg, 157.48 cm) jb4 17:21 Pain Scale: Adult jb4 MDM: 17:11 Medical Screening Exam initiated dr5 17:52 Differential diagnosis: viral Infection, Dehydration, Nodular Thyroid. Data reviewed: dr5 vital signs, nurses notes. Consideration of Admission/Observation Escalation of care including admission/observation considered. Discussion considered patient found to have symptoms of thyroid storm. I considered the following discharge prescriptions or medication management in the emergency department I discussed and recommended Over The Counter medications. Test considered but Not performed: Labs: Labs considered but not completed due to patient just had labs 5 days ago and has not had a chance to follow-up.. CT: CT scan considered again but deferred due to patient having no new symptoms and CT scan completed 5 days ago.. Care significantly affected by the following chronic conditions: Insomnia. Care significantly affected by the following Social Determinants of Health: Poor access to healthcare and/or lack of insurance, Poor access to transportation, Problems related to employment. Counseling: I had a detailed discussion with the patient and/or guardian regarding the historical points, exam findings, and any diagnostic results supporting the discharge/admit diagnosis, the presence of at least one elevated blood pressure reading (>120/80) during this emergency department visit, the need for outpatient follow up, for definitive care, a family practitioner, Machine Repairer. Medication response: Response to treatment: the patient's symptoms have markedly improved after treatment. Special discussion: I discussed with the patient/guardian in detail that at this point there is no indication for admission to the hospital. It is understood, however, that if the symptoms persist or worsen the patient needs to return immediately for re-evaluation. Based on the history and exam findings, there is no indication for further emergent testing or inpatient evaluation. Machine Repairer. ED course: Patient reports she has not seen her physician yet. Patient states her appointment is with Dr. Mendez on Monday, March 03, 2025. Patient states that she has her labs and CT scans that I printed out for her last and to take with her. I highly recommended patient take her CT scans and labs with her to her primary care doctor appointment and have ultrasound of thyroid moved up if possible.. 03/01 17:34 Order name: IV Start; Complete Time: 17:57 dr5 Administered Medications: 17:57 Drug: NS 0.9% IV 1000 ml IV at 1000 ml once; to be given as a bolus over 60 minutes jp5 Route: IV; Rate: 1000 ml; Site: left hand; 19:04 Follow up: IV Status: Completed infusion cp4 17:58 Drug: morphine IVP or IV 4 mg IVP once over 4 mins {Note: pain 8/10 RASS 0.} Route: jp5 IVP; Infused Over: 4 mins; Site: left hand; 19:04 Follow up: Response: No adverse reaction; Pain is decreased cp4 17:58 Drug: Ondansetron IVP 4 mg IVP once; over 2 minutes Route: IVP; Site: left hand; jp5 19:05 Follow up: Response: No adverse reaction; Nausea is decreased cp4 Disposition Summary: 03/01/25 19:27 Discharge Ordered Notes: Location: Home dr5 Condition: Stable dr5 Diagnosis - Nontoxic multinodular goiter dr5 Followup: dr5 - With: Emergency Department - When: As needed - Reason: Worsening of condition Followup: dr5 - With: Private Physician - When: 1 - 2 days - Reason: Recheck today's complaints, Continuance of care, Re-evaluation by your physician Discharge Instructions: - Discharge Summary Sheet dr5 - Thyroid Nodule dr5 Forms: - Medication Reconciliation Form dr5 - Prescription Opioid Use dr5 - Patient Portal Instructions dr5 - Leadership Thank You Letter dr5 Prescriptions: - Ibuprofen 800 mg Oral Tablet - take 1 tablet ORAL route every 12 hours As needed take with food; 20 tablet; dr5 Refills: 0, Product Selection Permitted - Tramadol 50 mg Oral Tablet - take 1 tablet ORAL route every 8 hours as needed; 12 tablet; Refills: 0, dr5 Product Selection Permitted Signatures: Zeferino Rangel, RN RN jb4 Sade Barillas RN RN jp5 Parker Collier, MARINE REPORTER-C MARINE REPORTER-Cdr5 Radha Serrano cp4
--- NOTE | 2025-03-01 19:28 | ER ---
Nurse's Notes [facility] Name: Ariana Delatorre Age: 49 yrs Sex: Female : 1975 Arrival Date: 03/01/2025 Time: 17:06 Bed 11 Private MD: Diagnosis: Nontoxic multinodular goiter Presentation: 03/01 17:21 Chief complaint: Patient states: I am weak all over and I feel nervous and weird. Both jb4 my ear hurt, I feel like my thyroid is swollen.. It is hurting in my neck and back of my head. I am also having N/V. Coronavirus screen: At this time, the client does not indicate any symptoms associated with coronavirus-19. Ebola Screen: No symptoms or risks identified at this time. Initial Sepsis Screen: Does the patient meet any 2 criteria? HR > 90 bpm. Yes Does the patient have a suspected source of infection? No. Patient's initial sepsis screen is negative. Risk Assessment: Do you want to hurt yourself or someone else? Patient reports no desire to harm self or others. Onset of symptoms was February 27, 2025. Transition of care: patient was not received from another setting of care. 17:21 Method Of Arrival: Ambulatory jb4 17:21 Acuity: DEA 3 jb4 Triage Assessment: 19:38 General: Behavior is calm, cooperative, appropriate for age. 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 - Infectious Disease History:: Denies. - Social history:: Smoking status: Patient denies any tobacco usage or history of. Screenin:19 [facility] ED Fall Risk Assessment (Adult) History of falling in the last 3 months, cp4 including since admission No falls in past 3 months (0 pts) Confusion or Disorientation No (0 pts) Intoxicated or Sedated No (0 pts) Impaired Gait No (0 pts) Mobility Assist Device Used No (0 pt) Altered Elimination No (0 pt) Score/Fall Risk Level 0 - 2 = Low Risk Oriented to surroundings, Maintained a safe environment, Assessed \T\ reinforced patient's understanding of fall precautions, Hourly rounding (assess needs \T\ fall precautionary measures) done. Abuse screen: Denies threats or abuse. Denies injuries from another. Nutritional screening: No deficits noted. Tuberculosis screening: No symptoms or risk factors identified. Never had TB. Assessment: 17:40 Reassessment: Patient and/or family updated on plan of care and expected duration. Pain ll1 level reassessed. 19:19 Reassessment: Patient appears in no apparent distress at this time. Patient and/or cp4 family updated on plan of care and expected duration. Pain level reassessed. Patient is alert, oriented x 3, equal unlabored respirations, skin warm/dry/pink. General: Appears in no apparent distress. comfortable. Pain: Denies pain. Vital Signs: 17:21 BP 138 / 91; Pulse 94; Resp 16; Temp 97.5(TE); Pulse Ox 100% on R/A; Weight 56.25 kg jb4 (R); Height 5 ft. 2 in. (R); Pain 8/10; 19:37 BP 130 / 91; Pulse 88; Resp 16; Pulse Ox 100% ; cp4 17:21 Body Mass Index 22.68 (56.25 kg, 157.48 cm) jb4 17:21 Pain Scale: Adult jb4 ED Course: 17:09 Patient arrived in ED. al6 17:11 Parker Collier FNP-Tamar [facility]. [facility] 17:11 Fabiola Alberts MD is Attending Physician. dr5 17:24 Triage completed. jb4 17:24 Arm band placed on right wrist. jb4 17:39 Patient placed in an exam room, on a stretcher. ll1 17:42 Jose Miguel Wheeler, CORNELIA is Primary Nurse. ll1 19:19 Bed in low position. Call light in reach. Side rails up X 1. cp4 19:19 No provider procedures requiring assistance completed. cp4 19:19 Inserted saline lock: 22 gauge in left hand, using aseptic technique. cp4 19:37 Provided Education on: thryoid nodule. cp4 19:37 intact, bleeding controlled, No redness/swelling at site. Pressure dressing applied. cp4 Administered Medications: 17:57 Drug: NS 0.9% IV 1000 ml IV at 1000 ml once; to be given as a bolus over 60 minutes jp5 Route: IV; Rate: 1000 ml; Site: left hand; 19:04 Follow up: IV Status: Completed infusion cp4 17:58 Drug: morphine IVP or IV 4 mg IVP once over 4 mins {Note: pain 8/10 RASS 0.} Route: jp5 IVP; Infused Over: 4 mins; Site: left hand; 19:04 Follow up: Response: No adverse reaction; Pain is decreased cp4 17:58 Drug: Ondansetron IVP 4 mg IVP once; over 2 minutes Route: IVP; Site: left hand; jp5 19:05 Follow up: Response: No adverse reaction; Nausea is decreased cp4 Medication: 19:19 VIS not applicable for this client. cp4 Outcome: 19:27 Discharge ordered by MD. dr5 19:37 Discharged to home ambulatory, cp4 19:37 Condition: stable 19:37 Discharge instructions given to patient, family, Instructed on discharge instructions, follow up and referral plans. medication usage, Demonstrated understanding of instructions, follow-up care, medications, Prescriptions given X 2, 19:38 Patient left the ED. cp4 Signatures: Zeferino Rangel RN RN jb4 Jose Miguel Wheeler RN RN ll1 Radha Serrano cp4 Sade Barillas, RN RN jp5 Parker Collier, CIRCUITRY NEGATIVE INSPECTOR-C CIRCUITRY NEGATIVE INSPECTOR-[facility]5 [place] Aguirre6
[2025-03-01 20:40] VITALS: TEMP 97.5; O2SAT 100
[2025-03-01 20:42] VITALS: BP 130/91
== END 2025-03-01 19:38 | disposition home or self-care (01) ==
LOC: ER 17:06
DX: E04.2 Nontoxic multinodular goiter (principal)
CPT/HCPCS: 96361; 96375; 96374; 99284; J2405; J7030